=== PATIENT | female | born 1960 | race Caucasian/White ===

== ENCOUNTER 2018-01-27 08:50 | Emergency (ER) | payer OTHER, SELFPAY ==
[2018-01-27] VITALS (12 sets, daily range): BP systolic 92–131; BP diastolic 74–92; PULSE 60–159; RESP 10–24; TEMP 36.8; O2SAT 98–100; BMI 56.0
--- NOTE | 2018-01-27 09:04 | EKG12_ITS ---
Test Reason : REPEAT Blood Pressure : / mmHG Vent. Rate : 060 BPM Atrial Rate : 060 BPM P-R Int : 184 ms QRS Dur : 070 ms QT Int : 408 ms P-R-T Axes : 072 020 006 degrees QTc Int : 408 ms Atrial-paced rhythm Low voltage QRS Abnormal ECG Confirmed by APOLINAR SWEENEY, BHUPENDRA ([id number]), editor trade journal YOEL AVITIA ([id number]) on 01/30/2018 8:38:02 AM Referred By: CORY Confirmed By:BHUPENDRA JIANG MD
[2018-01-27] MEDS: 0.9% Normal Saline 1,000 ML 150 ML IV (09:09)
--- NOTE | 2018-01-27 09:10 | RAD_ITS ---
STUDY: X-RAY CHEST REASON FOR EXAM: Female, 57 years old. Chest pain TECHNIQUE: Single AP portable view of the chest. COMPARISON: 02/07/2017 FINDINGS: Cardiac monitoring leads overlie the chest. Cardiac pacemaker is unchanged. The lungs are clear and expanded. There is no demonstrated pleural abnormality. Normal size heart. Normal mediastinum and aaron. Normal visualized pulmonary arteries. Normal visualized aortic arch and descending thoracic aorta. Normal visualized thoracic spine. Normal visualized ribs, clavicles, and shoulders. There is no demonstrated abnormality of the visualized soft tissue structures of the upper abdomen. RAD/Chest 1 View (Portable) IMPRESSION: No acute process in the chest. Electronically Signed: Jose Roberto Stauffer DO at 9:35 EDT Tel , Service support ,
[2018-01-27 09:20] LABS: Absolute Lymphocyte Count 1.73 X10^3/ul (0.83-4.51); Absolute Neutrophil Count 3.3 X10^3/uL (2.0-7.7); Basophil# 0.01 X10^3/uL; Basophil% 0.2 % (0-1); Eosinophil# 0.06 X10^3/uL; Eosinophils% 1.1 % (0-5); Lymphocyte # 1.73 X10^3/ul (4.0); Lymphocyte % 30.5 % (19-41); Mean Corp Hgb Conc 31.7 g/gl (32-36); Mean Corpuscular Hgb 29.1 pg (27.0-32.0); Mean Corpuscular Volume 91.7 fL (81-99); Mean Platelet Vol. 10.9 fl (6.2-12.0); Monocyte# 0.58 X10^3/uL; Monocyte% 10.2 % (0-10); Neutrophil # 3.29 X10^3/uL (2.7-7.7); Platelet Count 201 K/mm3 (150-450); RBC Distribution Width CV 13.4 % (11.6-14.6); RBC Distribution Width SD 44.8 fl (35.1-43.9); Red Blood Count 4.47 M/mm3 (4.2-5.4); White Blood Count 5.7 K/mm3 (4.4-11.0)
[2018-01-27 09:24] LABS: POSITIVE COUNT NO; POSITIVE DIFFERENTIAL NO; POSITIVE MORPHOLOGY NO
--- NOTE | 2018-01-27 09:27 | ED.DCSUM_ITS ---
- ER Visit Summary Date of Service: 01/27/18 Chief Complaint: Palpitations History of Present Illness: The patient is a 57 F with a history of arrhythmogenic right ventricle cardiomyopathy. Patient states that she has a history of V. tach that required electrocardioversion. She is an ICD placed 1 year ago. Patient states that she was out on a walk this morning when she developed palpitations. Heart rate is 155-160. Patient states that her family development extension specialist is at [facility]. She does not want any treatment until we are able to speak with him and she is requesting transfer to their facility as soon as possible. Patient does note that her Toprol was decreased from 25 mg to 12.5 mg a couple days ago because her blood pressure have been running low when she was feeling dizzy. Physical Examination: Blood pressure is 131/92, temperature 98.3, heart rate 157 , respiratory rate 13, pulse ox 100% on 2 L nasal cannula. Patient sitting upright in bed no acute distress. She is alert and talkative. Head neck examination is unremarkable. Heart is regular rhythm but tachycardic. Lung sounds are clear. Abdomen is soft nontender. Extremity examination reveals no calf tenderness or edema. Test Results: EKG is SVT with a rate of 158. CBC and chemistry studies are grossly unremarkable. Her BUN is 22 and creatinine is 1.07. Troponin is less than 0.015. Portable chest x-ray is unremarkable. Pacer wires are intact. Emergency Department Course and Treatment: Immediately after seeing the patient I made phone calls to the patient's information technology specialist at [facility]. I was advised he is in a procedure but would call me back as soon as he was finished. I went back to recheck the patient multiple times. She declined medication or attempts at cardioversion until we were able to speak with him. Multiple calls were made back to the office. Patient spontaneously cardioverted approximate 3 hours after she first arrived to the emergency room. Patient had expressed wishes to be transferred and I did speak with the cardiology quarterback who excepted the patient to the EP service. After the patient converted repeat EKG is paced at [address] change. Patient has now been in a regular paced rhythm for the last 2 hours. She has remained comfortable. I spoke with the EP office again to ask about the recent medication changes. They advised that the doctor would be calling me back. At this time patient has now been in the emergency room for 5 hours with no return call. I will let the patient go home. If he calls while I am still on shift I will speak with him and call the patient. If the patient does not hear from us tonight she is to call his office tomorrow morning. She is comfortable with this plan. Treatment Plan: [] Disposition: Discharge Impression: SVT with spontaneous cardioversion This note was generated with [employer] dictation software. It may contain incorrect words, spelling, and punctuation that were not noted in review of the chart prior to signing ED Disposition - Plan for ED Patient: Chief Complaint: Palpitations Referrals: Alton Guerra MD [Primary Care Provider] -
[2018-01-27 09:33] LABS: Anion Gap 6 (5-15); BUN 22 mg/dL (7-18); BUN/Creat Ratio 20.6 RATIO (10-20); Calcium,Total 9.1 mg/dL (8.5-10.1); Chloride 105 mmol/L (98-107); Creatinine, Serum 1.07 mg/dL (0.55-1.02); EST Glomerular Filtration Rate 56 mL/min (>60); Est Glom Filt Rate - Afr Amer 68 mL/min (>60); Glucose 122 mg/dL (74-106); Potassium 3.8 mmol/L (3.5-5.1); Sodium Level 141 mmol/L (136-145)
--- NOTE | 2018-01-27 12:11 | EKG12_ITS ---
Test Reason : CP Blood Pressure : / mmHG Vent. Rate : 158 BPM Atrial Rate : 062 BPM P-R Int : 000 ms QRS Dur : 112 ms QT Int : 312 ms P-R-T Axes : 000 -58 107 degrees QTc Int : 505 ms Supraventricular tachycardia Left axis deviation Left ventricular hypertrophy with repolarization abnormality Inferior infarct , age undetermined Anterolateral infarct , age undetermined Abnormal ECG Confirmed by APOLINAR SWEENEY, BHUPENDRA ([id number]), purchasing expeditor YOEL AVITIA ([id number]) on 01/30/2018 8:39:46 AM Referred By: CORY Confirmed By:BHUPENDRA JIANG MD
--- NOTE | 2018-01-27 14:17 | ED.DEP ---
ED Disposition - Plan for ED Patient: Disposition: Home or Assisted Living Chief Complaint: Palpitations Instructions: ED Tachycardia Pat PSVT Referrals: Alton Guerra MD [Primary Care Provider] - Additional Instructions: Follow-up with your advertising executive as soon as possible.
== END 2018-01-27 14:37 | disposition home or self-care (01) ==
PROVIDERS: Emergency Provider Emergency Medicine; Family Provider Family Medicine; PCP Family Medicine
DX: I47.1 Supraventricular tachycardia (principal); I42.8 Other cardiomyopathies; Z79.82 Long term (current) use of aspirin; Z79.899 Other long term (current) drug therapy; Z87.891 Personal history of nicotine dependence
CPT/HCPCS: 71045; 80048; 84484; 85025; 93005; 96360; 96361; 99284; J7030; A4216

== ENCOUNTER 2019-09-07 10:58 | Emergency (ER) | payer OTHER, SELFPAY ==
[2019-09-07 10:59] VITALS: BP 164/110; PULSE 70; RESP 19; TEMP 36.3; O2SAT 98; BMI 24.3
--- NOTE | 2019-09-07 11:11 | EKG12_ITS ---
Test Reason : DIZZY Blood Pressure : / mmHG Vent. Rate : 062 BPM Atrial Rate : 062 BPM P-R Int : 190 ms QRS Dur : 082 ms QT Int : 410 ms P-R-T Axes : 079 038 048 degrees QTc Int : 416 ms Atrial-paced rhythm Low voltage QRS Abnormal ECG Confirmed by ZARINA ROSA ([id number]), international editorial producer AVIS AGUILAR ([id number]) on 09/10/2019 9:41:55 AM Referred By: AMAIRANI Confirmed By:ZARINA ROSA
--- NOTE | 2019-09-07 11:11 | RAD_ITS ---
STUDY: X-RAY CHEST REASON FOR EXAM: Female, 59 years old. PATIENT COMPLAINS OF DIZZINESS, LIGHTHEADEDNESS, SOB, AND CHEST PAIN EARLIER THIS AM, DENIES CP AT TH IS TIME. TECHNIQUE: Single AP portable view of the chest. COMPARISON: Comparison is made with prior study dated January 27, 2018. FINDINGS: Hyperinflation. The lungs are clear. There is no demonstrated pleural abnormality. Normal size heart. A left-sided dual-chamber pacemaker is seen. Normal mediastinum and aaron. Normal visualized pulmonary arteries. Normal visualized aortic arch and descending thoracic aorta. There are degenerative changes of the visualized thoracic spine. Normal visualized ribs, clavicles, and shoulders. There is no demonstrated abnormality of the visualized soft tissue structures of the upper abdomen. RAD/Chest 1 View (Portable) IMPRESSION: Hyperinflation. No acute abnormality is seen. Electronically Signed: Malachi Gonzalez, at 11:55 EST , Service support ,
[2019-09-07] MEDS: 0.9% Normal Saline 1,000 ML 150 ML IV (11:29)
[2019-09-07 11:33] LABS: Absolute Lymphocyte Count 1.24 X10^3/uL (0.83-4.51); Absolute Neutrophil Count 2.6 X10^3/uL (2.0-7.7); Basophil# 0.02 X10^3/uL; Basophil% 0.5 % (0-1); Eosinophil# 0.04 X10^3/uL; Eosinophils% 0.9 % (0-5); Hematocrit 42.2 % (37-47); Hemoglobin 13.4 g/dL (12.0-15.0); Lymphocyte # 1.24 X10^3/ul (4.0); Lymphocyte % 29.2 % (19-41); Mean Corp Hgb Conc 31.8 g/dL (32-36); Mean Corpuscular Hgb 28.7 pg (27.0-32.0); Mean Corpuscular Volume 90.4 fL (81-99); Mean Platelet Vol. 11.1 fl (6.2-12.0); Monocyte# 0.38 X10^3/uL; NRBC Flagged by Analyzer 0 % (0-5); Neutrophil # 2.55 X10^3/uL (2.7-7.7); Neutrophil % 60.2 % (47-70); Platelet Count 150 K/mm3 (150-450); RBC Distribution Width CV 13.6 % (11.6-14.6); RBC Distribution Width SD 44.9 fl (35.1-43.9); Red Blood Count 4.67 M/mm3 (4.2-5.4); White Blood Count 4.2 K/mm3 (4.4-11.0)
[2019-09-07 11:48] VITALS: PULSE 62; RESP 16; O2SAT 97
[2019-09-07 11:51] LABS: Anion Gap 5 (5-15); BUN 20 mg/dL (7-18); Calcium,Total 9.7 mg/dL (8.5-10.1); Chloride 104 mmol/L (98-107); EST Glomerular Filtration Rate 60 mL/min (>60); Est Glom Filt Rate - Afr Amer 73 mL/min (>60); Estimated Creatinine Clearance 54.51 ml/min; Glucose 96 mg/dL (74-106); Potassium 4.3 mmol/L (3.5-5.1); Sodium Level 141 mmol/L (136-145)
[2019-09-07 13:17] VITALS: BP 128/95; BP 132/95; BP 133/86; PULSE 62; PULSE 74
[2019-09-07 13:50] VITALS: BP 134/76; PULSE 69; RESP 18; O2SAT 96
--- NOTE | 2019-09-07 14:05 | ED.DCSUM_ITS ---
- ER Visit Summary Date of Service: 09/07/19 Chief Complaint: [Dizziness] History of Present Illness: The patient is a 59 F [presents to the ER with complaint of dizziness that started today. Patient states that she walked about 2-1/2 miles today and had episode of lightheadedness associated with it. Since that time she had intermittent episodes of lightheadedness whether she is sitting or standing. 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 Patient had a cardiac arrest in 2017. Patient has a pacer defibrillator in place. She has had a cold recently but she states she feels like she is getting over it. Patient denies any chest pain. She is had no syncopal episodes. The defibrillator has not discharged.] Patient had heart catheterization in 2017 that showed no abnormalities. Physical Examination: [HEENT-PERRLA, EOMI. Cranial nerves II through XII grossly intact. TMs clear. Mucous membranes moist. No adenopathy. Cardiovascular-regular rate and rhythm without murmur or ectopy Lungs-clear to auscultation, chest wall stable without crepitus or subcu emphysema Abdomen-normoactive bowel sounds, soft, nontender, no rebound or rigidity, no peritoneal signs. Extremities-intact ?4, normal range of motion, normal pulses, atraumatic] Test Results: [EKG obtained arrival showed a atrially paced rhythm with a ventricular rate of 62 bpm with no acute ST segment changes. CBC with differential was unremarkable. Chemistries unremarkable. Troponin was less than 0.015. Orthostatic vital signs were negative. Chest x-ray showed nothing acute.] Emergency Department Course and Treatment: [Patient had the pacer defibrillator interrogated and I discussed case with the tech who noted some episodes of nonsustained V. tach 5 episodes since May of last year. None within the last 24 hours. The last episode was September 04. It did not believe that any abnormal rhythms can be attributed to patient's symptomatology today.] Treatment Plan: [Follow-up with primary care physician in 3 to 5 days. Patient advised to push fluids and rest today.] Disposition: [Discharged home in stable condition] Impression: [Dizziness-etiology uncertain] This note was generated with [employer] software. It may contain incorrect words, spelling, and punctuation that were not noted in review of the chart prior to signing ED Disposition - Plan for ED Patient: Referrals: Alton Guerra MD [Primary Care Provider] -
--- NOTE | 2019-09-07 14:08 | ED.DEP ---
ED Disposition - Plan for ED Patient: Instructions: DIZZINESS, Unk Cause Referrals: Alton Guerra MD [Primary Care Provider] - 3-5 Days
[2019-09-07 14:21] VITALS: BP 126/57; PULSE 60; RESP 18; O2SAT 96
--- NOTE | 2019-09-07 14:21 | ED.RN ---
IV DC'ED, CATHETER INTACT, SMALL GAUZE DRESSING PLACED. DISCHARGE INSTRUCTIONS GIVEN TO AND REVIEWED WITH PATIENT, PATIENT DENIES QUESTIONS OR CONCERNS AND VOICES UNDERSTANDING OF DISCHARGE INSTRUCTIONS. PT AMBULATES OUT OF ROOM WITHOUT DIFFICULTY.
== END 2019-09-07 14:35 | disposition home or self-care (01) ==
PROVIDERS: Emergency Provider Emergency Medicine; PCP Family Medicine
DX: R42 Dizziness and giddiness (principal); I42.9 Cardiomyopathy, unspecified; R05 Cough; Z95.810 Presence of automatic (implantable) cardiac defibrillator
CPT/HCPCS: 71045; 80048; 84484; 85025; 93005; 96360; 96361; 99285; J7030; A4216

== ENCOUNTER → 2020-03-10 18:03 | Outpatient (CLI) | payer OTHER, SELFPAY | PROVIDERS: PCP Family Medicine; Referring Provider Family Medicine; Visit Provider Family Medicine | DX: Z20.828 Contact with and (suspected) exposure to other viral communicable diseases (principal) | CPT/HCPCS: 87635; 94799; U0003 ==

== ENCOUNTER → 2023-05-20 | Outpatient (CLI) | payer OTHER, SELFPAY ==
--- NOTE | 2023-05-20 08:28 | RAD_ITS ---
STUDY: AIR CONTRAST ESOPHAGRAM AND UPPER GI SERIES REASON FOR EXAM: Female, 63 years old. DYSPHAGIA for solid food. FLUOROSCOPY TIME (if supplied): (54 seconds) minutes/seconds. 22.86 mGy. TECHNIQUE: SINGLE CONTRAST AND AIR CONTRAST FLUOROSCOPIC IMAGES 24 images were obtained.. COMPARISON: None. FINDINGS: The cervical esophagus demonstrates normal motility without aspiration. There is no stricture or extrinsic mass effect. No intraluminal polypoid mass is identified. The thoracic esophagus distends well without stricture or mucosal fold thickening. No mucosal ulcerations are identified. There is no extrinsic mass effect. There are no diverticula. Small sliding hiatal hernia with gastroesophageal reflux. The patient ingested a 12 mm tablet of barium without any difficulty. The stomach distends well without mucosal fold thickening or mucosal ulceration. There is no intraluminal mass. The duodenal bulb is freely distensible without deformity or ulceration. The duodenal sweep is normal in position and caliber. RAD/Upper GI w/BA Swallow IMPRESSION: Small sliding hiatal hernia with gastroesophageal reflux. Electronically Signed: Malachi Gonzalez MD at 9:49 EDT ,
== END | disposition home or self-care (01) ==
LOC: RAD 08:16
PROVIDERS: PCP Family Medicine; Referring Provider Family Medicine; Visit Provider Family Medicine
DX: R13.19 Other dysphagia (principal)
CPT/HCPCS: 74246

== ENCOUNTER 2025-04-09 07:23 | Emergency (ER) | payer MEDICARE, OTHER, SELFPAY ==
[2025-04-09 07:24] VITALS: BP 141/93; PULSE 72; RESP 16; TEMP 36.5; O2SAT 97; BMI 25.3
--- NOTE | 2025-04-09 07:40 | CT_ITS ---
PROCEDURE: BRAIN/HEAD WITHOUT CONTRAST 04/09/2025 REASON FOR EXAM: HEADACHE 80 TECHNIQUE: Procedure Code: CTBR Modality: CT Procedure: BRAIN/HEAD WITHOUT CONTRAST Coronal and Sagittal reconstruction series were provided. One or more dose reduction techniques were used (e.g., Automated exposure control, adjustment of the mA and/or kV according to patient size, use of iterative reconstruction technique. RADIATION DOSE SUMMARY: CTDlvol: 80 mGy DLP: 1490 mGycm COMPARISON: None FINDINGS: Cerebrum: Age-appropriate cerebral volume. Negative for mass the frontal, parietal, temporal and occipital lobes otherwisenegative. White matter: Minimal periventricular white matter changes. Cerebellum: Negative. Negative for mass. Negative for acute infarction. CSF pathways and ventricles: Negative. Negative for ventricular dilatation or obstruction. Basal ganglia and thalami: Negative. No acute infarctions. Brainstem: Midbrain, charis and medulla otherwisenegative. Calvarium: Negative. Negative for fractures. Orbital structures: Globes negative. Extraocular muscles negative. Paranasal sinuses: No air fluid levels. Remainder of the sinuses negative. Vascular structures: Mild calcifications of the distal intracranial internal carotid arteries. Soft tissues: Negative. Other: : Negative for acute intracranial hemorrhage. Negative for acute infarction. Remainder of exam negative. CT/Brain/Head without Contrast IMPRESSION: Negative CT of the brain. Reading Location: [id number]
--- NOTE | 2025-04-09 07:40 | CT_ITS ---
PROCEDURE: CTA HEAD AND NECK W/ CONTRAST 04/09/2025 REASON FOR EXAM: HEADACHE LEFT NECK PAIN TECHNIQUE: Procedure Code: CTCTA.HDNCK Modality: CT Procedure: CTA HEAD AND NECK W/ CONTRAST Multiplanar Sagittal and Coronal images were obtained. CONTRAST: Isovue 370 VOLUME: 85 mL One or more dose reduction techniques were used (e.g., Automated exposure control, adjustment of the mA and/or kV according to patient size, use of iterative reconstruction technique). RADIATION DOSE SUMMARY: CTDlvol: 95 mGy DLP: 1490 mGycm COMPARISON: None. FINDINGS: CT BRAIN: Cerebrum: Normal cerebral volume. Negative for mass the frontal, parietal, temporal and occipital lobes negative. White matter: Negative for periventricular white matter changes. Cerebellum: Negative. Negative for mass. Negative for acute infarction. CSF pathways and ventricles: Negative. Negative for ventricular dilatation or obstruction. Basal ganglia and thalami: Negative. No acute infarctions. Brainstem: Midbrain, charis and medulla otherwisenegative. Calvarium: Negative. Negative for fractures. Orbital structures: Globes negative. Extraocular muscles negative. Paranasal sinuses: No air fluid levels. Remainder of the sinuses negative. Vascular structures: Slipped calcifications of the intracranial structures. Other: : Negative for acute intracranial hemorrhage. Negative for acute infarction. Remainder of exam negative. CTA BRAIN: Codominant distal vertebral arteries. Mild vascular calcifications distal intracranial right vertebral artery. Basilar artery negative. Posterior cerebral arteries: Right posterior communicating artery patent. Left posterior communicating artery aplastic. Posterior cerebral arteries and branches otherwise negative.. Negative for stenosis of the posterior cerebral arteries. Distal internal carotid arteries: Mild vascular calcifications of the distal internal carotid arteries. Negative for stenosis. Anterior cerebral arteries: Anterior communicating artery patent. Anterior cerebral arteries and branches negative. Middle cerebral arteries: Negative for stenosis of the middle cerebral arteries. Middle cerebral arteries and branches negative. Negative for intracranial aneurysm or significant stenosis. CTA neck: Neck: Intracranial contents negative. Imaged orbits negative. Oropharynx, hypopharynx and larynx negative. Soft tissue neck negative. No cervical adenopathy. Imaged lungs and mediastinum negative. Aortic arch and branches patent. Right side: Origin of the right common carotid artery negative. Negative for vascular calcifications of the common carotid artery and/or internal carotid artery. Negative for hemodynamically significant stenosis of the right common carotid artery. Negative for hemodynamically significant stenosis of the right internal carotid artery. Left side: Origin of the left common carotid artery negative. Negative for vascular calcifications of the common carotid and/or internal carotid artery. Negative for hemodynamically significant stenosis of the right common carotid artery. Abnormal appearance to the proximal and mid left vertebral artery concerning for dissection leading to proximally 50% narrowing of this portion of the carotid artery and extending 3.5 [address] in total length. CT/CTA Head AND Neck W/ Contrast IMPRESSION: Negative CTA of the head. 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 Right carotid system negative. Findings discussed with referring clinician at the time of the exam. Reading Location: [id number]
--- NOTE | 2025-04-09 07:40 | VDLE_ITS ---
Reason For Study Reason For Study: RLE PAin RIGHT LEFT GSV is normal. CFV is compressible, spontaneous, competent, and CFV is compressible, spontaneous, competent and demonstrates pulsatile venous flow. demonstrates pulsatile venous flow. FV is compressible, spontaneous, competent and demonstrates pulsatile venous flow. POP V is compressible, spontaneous, competent and demonstrates pulsatile venous flow. T/P Trunk is compressible. PTV is compressible. RT PerV is compressible. Procedure This is a venous duplex using B-mode, color flow and spectral Doppler. Exam performed in department. The exam was diagnostic. A preliminary report was called and/or faxed to Dr. Harris. VL/Venous Duplex US, Unilateral Interpretation Summary Deep veins of the right lower extremity are patent and compressible segmentally . There is no evidence of right lower extremity deep vein thrombosis. Valvular competence appears intact within the p roximal deep venous system on the right . The right great saphenous vein appears patent and compressible segmentally. Pul satile flow is noted in the deep venous system bilaterally, which may be indicative of elevated central venous pressure (i.e. congestive heart failure, pulmonary hypertension, etc.). Clinical correlation is advised. The left common femoral vein is patent and compressible . Ordering Physician: Juan Harris Referring Physician: Alton Guerra Performed By: Humza Vincent RVT
--- OUTSIDE RECORDS SUMMARY | 2025-04-09 07:50 | XMS RPT_ITS | CCD ---
Author Organization [facility] Care Team Providers Care Agricultural Sciences Professor Name Role Phone BEAU DUNNE ADA Unavailable Unavailable PATRICIALEXX KNAPP Unavailable Unavailable SYSTEM, PROVIDER NOT IN Unavailable Unavaila ble COPC HU, GENERIC Unavailable Unavailable CRISTEL BRAND Unavailable Unavailable [facility] Unavailable U DANNI Melendez Unavailable UnavailAlton Griffin MD Primary Care Provider No, Referral Unavailable Unavailable Ronal Gomez MD Unavailable Clarissa Tucker DO Unavailable Alton Eisenberg MD Primary Care Provider Ronal Gomez MD Unavailable Clarissa Tucker DO Unavailable Alton Eisenberg MD Primary Care Provider Alton Eisenberg MD Primary Care Provider No, Referral Unavailable Unavailable Ronal Gomez MD Unavailable Clarissa Tucker DO Unavailable No, Referral Unavailable Unavailable Ronal Gomez MD Unavailable [phone] Clarissa Tucker DO Unavailable Alton Eisenberg MD Primary Care Provider ILYA RAYGOZA Attending Unavailable CHANEL GARDNER Referring Unavailable ALTON EISENBERG Primary Care Unavailable Alton Eisenberg MD Primary Care Provider Shilo HOUSEKEEPER.Chanel PLATT Unavailable Doshi PA-C, Kelsie Unavailable Alton Eisenberg MD Primary Care Provider Shilo HOUSEKEEPER.[employer], Chanel Unavailable Tico YE, Kelsie Unavailable Shilo HOUSEKEEPER.STEWARD/[employer]EWARDESS [employer] CLASS, Chanel Unavailable Tico YE, Kelsie Unavailable Clarissa Tucker DO Unavailable [phone] SANTIAGO CAMPOS Attending Unavailable SANTIAGO CAMPOS Referring Unavailable FAINA, ALTON A Primary Care Unavailable FAINA, ALTON A Referring Unavailable FAINA, ALTON A Primary Care Unavailable CHANEL GARDNER Attending Unavailable FAINA, ALTON A Primary Care Unavailable SANTIAGO CAMPOS Referring Unavailable FAINA, ALTON A Primary Care Unavailable REYMUNDO CLAYTON Attending Unavailable REYMUNDO CLAYTON Referring Unavailable FAINA, ALTON A Primary Care Unavailable REESE PAGAN Referring Unavailable FAINA, ALTON A Primary Care Unavailable SANTIAGO CAMPOS Referring Unavailable FAINA, ALTON A Primary Care Unavailable FAINA, ALTON A Referring Unavailable FAINA, ALTON A Primary Care Unavailable CARI, DAVE Referring Unavailable FAINA, ALTON A Primary Care Unavailable SANTIAGO CAMPOS Attending Unavailable FAINA, ALTON A Primary Care Unavailable ALLEGRA ZAMORA Attending Unavaila REYMUNDO Coombs Referring Unavailable FAINA, ALTON A Primary Care Unavailable KELSIE DOSHI Attending Unavailable FAINA, ALTON A Primary Care Unavailable KELSIE DOSHI Attending Unavailable FIANA, ALTON A Primary Care Unavailable ACRI, DAVE Referring Unavailable FAINA, ALTON A Primary Care Unavailable TOMÁS SNOWDEN Referring Unavailabl e FAINA, ALTON A Primary Care Unavailable CLARISSA TUCKER Attending UnavailCLARISSA Carmichael Referring Unavailabl e FAINA, ALTON A Primary Care Unavailable KELSIE DOSHI Attending Unavailable SELF Referring Unavailable FAINA, ALTON A Primary Care Unavailable CARI, DAVE Referring Unavailable FIANA, ALTON A Primary Care Unavailable MICHELE MONTEIRO Attending Unavailable CARI, DAVE Referring Unavailable FAINA, ALTON A Primary Care Unavailable MICHELE MONTEIRO Attending Unavailable CARI, DAVE Referring Unavailable FAINA, ALTON A Primary Care Unavailable MICHELE MONTEIRO Attending Unavailable CARI, DAVE Referring Unavailable FAINA, ALTON A Primary Care Unavailable ANDRES, SANTIAGO Referring Unavailable FAINA, ALTON A Primary Care Unavailable MICHELE MONTEIRO Attending Unavailable MICHELE MONTEIRO Attending Unavailable CARI, DAVE Referring Unavailable FAINA, ALTON A Primary Care Unavailable CHANEL MARIE Referring Unavailable FAINA, ALTON A Primary Care Unavailable FAINA, ALTON A Attending Unavailable FAINA, ALTON A Primary Care Unavailable SAIDA FRANK Referring Unavailable FAINA, ALTON A Primary Care Unavailable SANTIAGO CAMPOS Attending Unavailable PRAGRETA SAIDA Referring Unavailable FAINA, ALTON A Primary Care Unavailable FAINA, ALTON A Referring Unavailable FAINA, ALTON A Primary Care Unavailable FAINA, ALTON A Attending Unavailable SELF Referring Unavailable FAINA, ALTON A Primary Care Unavailable ACRI, DAVE Referring Unavailable FAINA, ALTON A Primary Care Unavailable FAINA, ALTON A Attending Unavailable FAINA, ALTON A Referring Unavailable FAINA, ALTON A Primary Care Unavailable REESE PAGAN Referring Unavailable FAINA, ALTON A Primary Care Unavailable REESE PAGAN Attending Unavailable REESE PAGAN Referring Unavailable FAINA, ALTON A Primary Care Unavailable MICHELE MONTEIRO Attending Unavailable ANDRES, SANTIAGO Referring Unavailable FAINA, ALTON A Primary Care Unavailable FAINA, ALTON A Attending Unavailable FAINA, ALTON A Primary Care Unavailable FAINA, ALTON A Referring Unavailable FAINA, ALTON A Primary Care Unavailable FAINA, ALTON A Attending Unavailable FAINA, ALTON A Primary Care Unavailable FAINA, ALTON A Attending Unavailable FAINA, ALTON A Primary Care Unavailable CARI, DAVE Attending Unavailable CARI, DAVE Referring Unavailable FAINA, ALTON A Primary Care Unavailable CARI, DAVE Referring Unavailable FAINA, ALTON A Primary Care Unavailable TOMÁS SNOWDEN Referring Unavailabl e FAINA, ALTON A Primary Care Unavailable FAINA, ALTON A Primary Care Unavailable TOMÁS SNOWDEN Referring Unavailabl e FAINA, ALTON A Primary Care Unavailable Allergies Allergy Classification Reported Allergen(s) Allergy Type Date of Onset Reaction(s) Facility (20 sources) Bee Sting; Translations: [BEE STING] Allergy to substance 1 Swelling [facility] (20 sources) Omeprazole; Translations: [OMEPRAZOLE] Drug Allergy 4 Other: See Comments [facility] (4 sources) cyclobenzaprine; Translations: [CYCLOBENZAPRINE ] Drug Allergy Other: See Comments [facility] Medications Current Medications Medication Drug Class(es) Dates Sig (Normalized) Sig (Original) acetaminophen 500 mg oral tablet (20 sources) take 1 tablet by mouth every six hours as needed acetaminophen (TYLENOL) 500 mg tablet Take 500 mg by mouth every 6 hours as needed. Active Comment on above: Take 500 mg by mouth every 6 hours as needed. amoxicillin 875 mg oral tablet (8 sources) Penicillin-class Antibacterial Start: 01-03-2025 End: 01-10-2025 take 1 tablet by mouth twice daily amoxicillin (AMOXIL) 875 mg tablet Indications: Acute otitis media, left Take 1 tablet by mouth two times a day for 7 days. 14 tablet 01/03/2025 01/10/2025 Active Start: 01-01-2022 End: 01-08-2022 take 1 tablet by mouth twice daily amoxicillin (AMOXIL) 875 mg tablet Take 1 tablet by mouth twice daily for 7 days. 14 tablet 0 01/01/2022 01/08/2022 Active Comment on above: Take 1 tablet by hu th twice daily for 7 days. amoxicillin 875 mg / clavulanate 125 mg oral tablet (5 sources) Penicillin-class Antibacterial Start: End: take 1 tablet by mouth every twelve hours amoxicillin-clavul anate potassium (AUGMENTIN) 875-125 mg per tablet Take 1 tablet by mouth every 12 hours for 10 days. 20 tablet 01/07/2025 01/17/2025 Active Start: 01-11-2022 End: 01-21-2022 take 1 tablet by mouth twice daily amoxicillin-clavulanic acid (AUGMENTIN) 875-125 mg per tablet Indications: Sinobronchitis Take 1 tablet by mouth twice daily for 10 days. 20 tablet 0 01/11/2022 01/21/2022 Active Comment on above: Take 1 tablet by hu th twice daily for 10 days. aspirin 81 mg chewable tablet (20 sources) Platelet Aggregation Inhibitor, Nonsteroidal Anti-inflammatory Drug Start: 007 take 1 tablet by mouth once daily aspirin 81 mg ORAL Chew Take one(1) tablet daily. 0 05/07/2007 Active Comment on above: Take one(1) tablet d aily. 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 For cholesterol. 90 tablet 3 05/12/2024 05/12/2025 Active Start: 08-28-2023 take 1 tablet by hu th once daily at bedtime for hyperlipidemia atorvastatin (LIPITOR) 10 mg tablet Take 1 tablet by mouth daily at bedtime. For cholesterol. 90 tablet 1 08/28/2023 Active Start: 03-25-2022 End: 03-10-2023 take 1 tablet by mouth once daily at bedtime for hyperlipidemia atorvastatin (LIPITOR) 10 mg tablet Take 1 tablet by mouth daily at bedtime. For cholesterol. 90 tablet 1 03/25/2022 08/25/2022 Discontinued Comment on above: Take 1 tablet by hu th daily at bedtime. For cholesterol. augmented betamethasone 0.5 mg/ml topical cream (1 source) Corticosteroid Start: 03-29-2022 End: 04-09-2022 betamethasone dipropionate, augmented (DIPROLENE) 0.05 % cream Apply to rash areas twice a day for next 7-14 days. 15 g 0 03/29/2022 04/09/2022 Active Comment on above: Apply to rash areas twice a day for next 7-14 days. CALCIUM-VITAMIN D3 ORAL (20 sources) CALCIUM-VITAMIN D3 ORAL Take by mouth. 1200 calcium- 1000 units D3 (2) tablets twice daily Active CALCIUM-VITAMIN D3 ORAL Take by mouth. 1200 calcium- 1000 units D3 (2) tablets twice daily 0 Active CALCIUM-VITAMIN D3 ORAL Take by mouth. 1200 calcium- 1000 units D3 0 Active Comment on above: Take by mouth. 1200 calcium- 1000 units D3 Take by mouth. 1200 calcium- 1000 units D3 (2) tablets twice daily carboxymethylcellulose sodium 5 mg/ml / glycerin 9 mg/ml ophthalmic solution (20 sources) Non-Standardized Chemical Allergen Carboxymethylcellulo se-Glycern (OPTIVE) 0.5-0.9 % drop Use 1 Drop in both eyes as needed. Active cefadroxil 500 mg oral capsule (1 source) Cephalosporin Antibacterial Start : 04-09 End: 04-16 take 1 capsule by mouth twice daily cefADROxil (DURICEF) 500 mg capsule Take 1 capsule by mouth two times a day for 7 days. 14 capsule 04/09/2024 04/16/2024 Active empagliflozin 10 mg oral tablet (20 sources) Sodium-Glucose Cotransporter 2 Inhibitor Start : 08-06 End: 05-12 take 1 tablet by mouth once daily at breakfast empagliflozin (JARDIANCE) 10 mg tablet Indications: Arrhythmogenic right ventricular cardiomyopathy (HCC) , Chronic heart failure with preserved ejection fraction (HFpEF) (HCC) Take 1 tablet by mouth daily with breakfast. 90 tablet 3 05/12/2024 05/12/2025 Active Comment on above: Take 1 tablet by hu th daily with breakfast. [id number] 0.3 ml EPINEPHrine 1 mg/ml auto-injector (20 sources) alpha-Adrenergic Agonist, beta-Adrenergic Agonist, Catecholamine Start : 01-24 End: 11-16 EPINEPHrine (AUVI-Q) 0.3 mg/0.3 mL auto-injector Inject 0.3 mL intramuscularly as needed. 2 each 1 11/16/2024 Active Start: 04-05-2020 End: 01-03-2023 EPINEPHrine (EPIPEN) 0.3 mg/ 0.3 mL auto-injector Use as directed after bee sting if you develop shortness of breath, chest tightness of difficulty swallowing. 2 Each 1 04/05/2020 01/03/2023 Discontinued Comment on above: Use as directed afte r bee sting if you develop shortness of breath, chest tightness of difficulty swallowing. Inject 0.3 mL intram uscularly as needed. furosemide 40 mg oral tablet (20 sources) Loop Diuretic Start: 08-02-20 End: 05-12-20 take 1 tablet by mouth once daily furosemide (LASIX) 40 mg tablet Indications: Arrhythmogenic right ventricular cardiomyopathy (HCC) , Chronic heart failure with preserved ejection fraction (HFpEF) (HCC) Take 1 tablet by mouth once daily. 90 tablet 3 05/12/2024 05/12/2025 Active Start: 01-31-2022 End: 01-31-2023 take 1 tablet by mouth once daily as needed furosemide (LASIX) 20 mg tablet Indications: Arrhythmogenic right ventricular cardiomyopathy (HCC) Take 1 tablet by mouth once daily as needed. 30 tablet 11 01/31/2022 08/02/2022 Discontinued Comment on above: Take 1 tablet by hu th once daily as needed. Take 1 tablet by hu th once daily as needed (leg swelling). Take 1 tablet by hu th once daily. glucosamine/chondr barrera A sod (OSTEO BI-FLEX ORAL) (20 sources) glucosamine/radha dr bruce Burgess sod (OSTEO BI-FLEX ORAL) Take by mouth once daily. Active glucosamine/radha dr bruce Burgess sod (OSTEO BI-FLEX ORAL) Take by mouth once daily. 0 Active glucosamine/radha dr bruec Burgess sod (OSTEO BI-FLEX ORAL) Take by mouth. 0 Active Comment on above: Take by mouth. Take by mouth once d aily. hydrocortisone 10 mg/ml / neomycin 3.5 mg/ml / polymyxin b [id number] unt/ml otic suspension (1 source) Aminoglycoside Antibacterial, Polymyxin-class Antibacterial, Corticosteroid Start: 12-07-2024 End: 12-12-2024 [id number] drocortisone (CORTISPORIN) 3.5-10,000-1 mg/mL-unit/mL-% otic suspension Use 4 drops in the left ear two times a day for 5 days. 10 mL 12/07/2024 12/12/2024 Active L. acidophilus/Bifid. animalis (PROBIOTIC) 5 billion cell cpSP (20 sources) L. acidophilus/B ifid. animalis (PROBIOTIC) 5 billion cell cpSP Take 1 capsule by mouth once daily. Active L. acidophilus/B ifid. animalis (PROBIOTIC) 5 billion cell cpSP Take 1 capsule by mouth once daily. 0 Active Comment on above: Take 1 capsule by mo [facility] [place] once daily. 24 hr metoprolol succinate 25 mg extended release oral tablet (20 sources) beta-Adrenergic El Start: 01-03-2023 End: 01-03-2024 take 1 tablet by mouth once daily metoprolol succinate ER (TOPROL XL) 50 mg 24 hr tablet Indications: Arrhythmogenic right ventricular cardiomyopathy (HCC) , Hypertension, essential , Arrhythmogenic right ventricular dysplasia (HCC) , Presence of combination internal cardiac defibrillator (ICD) and pacemaker Take 1 tablet by mouth once daily. 90 tablet 3 01/03/2023 02/14/2023 Discontinued Start: 08-10-2021 End: 05-12-2025 take 1.5 tablets by mouth once daily metoprolol succinate ER (TOPROL XL) 25 mg 24 hr tablet Indications: Arrhythmogenic right ventricular cardiomyopathy (HCC) , Presence of combination internal cardiac defibrillator (ICD) and pacemaker , Hypertension, essential , Arrhythmogenic right ventricular dysplasia (HCC) Take 1.5 tablets by mouth once daily. 135 tablet 3 05/12/2024 05/12/2025 Active Comment on above: Take 1 tablet by hu th once daily. Take 1.5 tablets by mouth once daily. multivitamin ORAL tablet (20 sources) Start: 03-25-20 take 1 tablet by mouth once daily multivitamin ORAL tablet Take 1 tablet by mouth once daily. 0 03/25/2011 Active Comment on above: Take 1 tablet by hu th once daily. ofloxacin 3 mg/ml otic solution (5 sources) Quinolone Antimicrobial Start: 11-09-19 End: 01-04-20 ofloxacin (FLOXIN) 0.3 % otic solution Indications: Perforated tympanic membrane, left Use 5 Drops in the left ear twice daily. 5 mL 0 11/08/2022 01/03/2023 Discontinued Comment on above: Use 5 Drops in the l eft ear twice daily. omeprazole 40 mg delayed release oral capsule (20 sources) Proton Pump Inhibitor Start: 10-31-19 24 take 1 capsule by mouth once daily before mealtime omeprazole (PRILOSEC) 40 mg capsule Take 1 capsule by mouth once daily. 1/2 hr before meal. 90 capsule 1 10/31/2023 Active Start: 08-28-2023 take 1 capsule by mo ut once daily before mealtime omeprazole (PRILOSEC) 20 mg capsule Take 1 capsule by mouth once daily. 1/2 hr before meal. 90 capsule 1 08/28/2023 Active Start: 10-09-2022 take 1 capsule by mo uth twice daily before mealtime omeprazole (PRILOSEC) 20 mg capsule Take 1 capsule by mouth twice daily. 1/2 hr before meal. 180 capsule 1 10/09/2022 Active Comment on above: Take 1 capsule by mo ut twice daily. 1/2 hr before meal. Take 1 capsule by mo uth once daily. 1/2 hr before meal. predniSONE 20 mg oral tablet (2 sources) Start: 01-07-2025 End: 01-13-2025 take 2 tablets by mouth once daily predniSONE (DELTASONE) 20 mg tablet Take 2 tablets by mouth once daily for 6 days. 12 tablet 01/07/2025 01/13/2025 Active tiZANidine 4 mg oral tablet (3 sources) Central alpha-2 Adrenergic Agonist Start: 04-07-2025 take 1 tablet by mouth every eight hours as needed for muscle spasms tiZANidine (ZANAFLEX) 4 mg tablet Indications: Muscle spasms of neck Take 1 tablet by mouth every 8 hours as needed (muscle spasms). 30 tablet 04/07/2025 Active Completed/Discontinued Medications Medication Drug Class(es) Dates Sig (Normalized) Sig (Original) Cetirizine (2 sources) Histamine-1 Receptor Antagonist End: 11-01-2021 cetirizine HCl (ZYRTEC ORAL) Take by mouth. 0 11/01/2021 Discontinued (Discontinued by Patient) Comment on above: Take by mouth. enteric contrast (will be provided with radiology test) (2 sources) Start: 05-24-2022 End: 05-24-2022 take 1 dose by mouth once, then take 1 dose by mouth once enteric contrast (will be provided with radiology test) Take 1 Each by mouth one time only for [address] ABD/PEL WO Routine order Administer, As Directed One Time Only, via Oral, Rectal, both Oral and Rectal, Enteric Tube, Stoma or Indwelling Catheter, Enteric Contrast as designated per enteric contrast guidelines 1 Each 0 05/24/2022 05/24/2022 Start: 05-24-2022 End: 05-24-2022 take 1 dose by mouth once, then take 1 dose by mouth once enteric contrast (will be provided with radiology test) Take 1 Each by mouth one time only for [address] ABD/PEL WO Routine order Administer, As Directed One Time Only, via Oral, Rectal, both Oral and Rectal, Enteric Tube, Stoma or Indwelling Catheter, Enteric Contrast as designated per enteric contrast guidelines 1 Each 0 05/24/2022 05/24/2022 Active Comment on above: Take 1 Each by mouth one time only for [address] ABD/PEL WO Routine order Administer, As Directed One Time Only, via Oral, Rectal, both Oral and Rectal, Enteric Tube, Stoma or Indwelling Catheter, Enteric Contrast as designated per enteric contrast guidelines famotidine 20 mg oral tablet (20 sources) Histamine-2 Receptor Antagonist Start: 10-10-19 End: 10-10-19 23 take 1 tablet by mouth every twenty-four hours as needed famotidine (PEPCID) 20 mg tablet Take 1 tablet by mouth at bedtime as needed. 90 tablet 1 05/15/2022 10/09/2022 Discontinued (Changing Therapy/Dosage Form) Comment on above: Take 1 tablet by hu th at bedtime as needed. fluticasone propionate 0.05 mg/actuat metered dose nasal spray (20 sources) Corticosteroid Start: 01-12-20 End: 02-01-20 take 2 spray(s) by mouth once daily fluticasone (FLONASE) 50 mcg/actuation nasal spray Indications: Sinobronchitis Use 2 Sprays in each nostril once daily. Rinse mouth after use. 1 Each 0 01/11/2022 01/31/2022 Discontinued fluticasone prop ionate (FLONASE NASAL) Use in the nose two times a day. Active End: 11-01-2021 fluticasone propionate (FLON ASE NASAL) Use in the nose. 0 11/01/2021 Discontinued (Discontinued by Patient) Comment on above: Use in the nose. Use 2 Sprays in each nostril once daily. Rinse mouth after use. lansoprazole 30 mg delayed release oral capsule (7 sources) Proton Pump Inhibitor Start: 4 End: 4 take 1 capsule by mouth once daily before breakfast lansoprazole (PREVACID) 30 mg capsule Take 1 capsule by mouth daily before breakfast. 1/2 hr before meal. 30 capsule 1 2024 05/12/2024 Discontinued melatonin 3 mg oral tablet (2 sources) End: 2 take 1 tablet by mouth once daily at bedtime melatonin 3 mg tablet Take 3 mg by mouth daily at bedtime. 0 11/01/2021 Discontinued (Discontinued by Patient) Comment on above: Take 3 mg by mouth d aily at bedtime. pantoprazole 40 mg delayed release oral tablet (4 sources) Proton Pump Inhibitor Start: 4 End: take 1 tablet by mouth once daily before breakfast pantoprazole DR (PROTONIX) 40 mg tablet Take 1 tablet by mouth daily before breakfast. Take on empty stomach, 1/2 hr before meal. 90 tablet 1 12/01/2023 12/19/2023 Discontinued (Lack of Efficacy) perflutren lipid microspheres 1.3 mL in NaCl (PF) 0.9% 10 mL injection (DEFINITY) (20 sources) Start: 3 End: perflutren lipid microspheres 1.3 mL in NaCl (PF) 0.9% 10 mL injection (DEFINITY) Start: 08-02-2022 End: 11-01-2023 perflutren lipid microsphere s 1.3 mL in NaCl (PF) 0.9% 10 mL injection (DEFINITY) Start: 01-31-2022 End: 05-02-2023 perflutren lipid microsphere s 1.3 mL in NaCl (PF) 0.9% 10 mL injection (DEFINITY) Start: 11-01-2021 End: 01-31-2023 perflutren lipid microsphere s 1.3 mL in NaCl (PF) 0.9% 10 mL injection (DEFINITY) polyethylene glycol 3350 10697 mg powder for oral solution (6 sources) Osmotic Laxative End: 10-09-2022 polyethylene glycol 3350 (MIRALAX, GLYCOLAX) 17 gram/dose powder Take 17 g by mouth once daily. Patient using 0.5 teaspoon daily. Dissolve dose in 4 - 8 ounces of liquid and take as directed. 10/09/2022 Discontinued Comment on above: Take 17 g by mouth o nce daily. Patient using 0.5 teaspoon daily. Dissolve dose in 4 - 8 ounces of liquid and take as directed. polyethylene glycol 3350 437179 mg / potassium chloride 2970 mg / sodium bicarbonate 6740 mg / sodium chloride 5860 mg / sodium sulfate 87336 mg powder for oral solution (6 sources) Osmotic Laxative Start: 08-13-2022 End: 10-09-2022 peg 3350-Electrolytes (GOLYTELY) 236-22.74-6.74 -5.86 gram suspension Drink 1/3 jug for 3 days in a row 1 Each 08/13/2022 10/09/2022 Discontinued Comment on above: Drink 1/3 jug for 3 days in a row 125 ml sodium chloride 9 mg/ml prefilled syringe (20 sources) Start: 11-01-2021 End: 04-03-2024 sodium chloride 0.9 % (flush) 10 mL (BD POSIFLUSH) Problems Active Problems Problem Classification Problem Date Documented Da te Episodic/Chronic Abdominal pain (20 sources) Left lower quadrant pain; Translations: [Left lower quadrant pain] Onset: 3 Episodic Acquired foot deformities (2 sources) Talipes planus; Translations: [Flat foot [pes planus] (acquired), right foot] 03-28-2023 Episodic Anxiety disorders (20 sources) Mixed anxiety and depressive disorder; Translations: [Other specified anxiety disorders] Onset: 7 Resolved: 0 07-09-2017 Chronic Cardiac dysrhythmias (20 sources) Supraventricular tachycardia; Translations: [Sinus node dysfunction] Onset: 7 09-16-2019 Chronic Coma; stupor; and brain damage (2 sources) Daytime somnolence; Translations: [Somnolence] Onset: 5 04-07-2025 Episodic Conduction disorders (20 sources) 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; Translations: [Presence of automatic (implantable) cardiac defibrillator] Onset: 7 01-14-2017 Chronic Congestive heart failure; nonhypertensive (20 sources) Chronic systolic heart failure; Translations: [Chronic systolic (congestive) heart failure] Onset: 3 Resolved: 4 Chronic Disorders of lipid metabolism (20 sources) Mixed hyperlipidemia; Translations: [Mixed hyperlipidemia] Onset: 6 Resolved: 8 08-13-2018 Chronic E Codes: Fall (2 sources) Fall; Translations: [Unspecified fall, initial encounter] 11-04-2024 Episodic E Codes: Natural/environment (2 sources) Insect bite - wound; Translations: [Bitten or stung by nonvenomous insect and other nonvenomous arthropods, initial encounter] Onset: 5 02-08-2025 Episodic Esophageal disorders (20 sources) Gastroesophageal reflux disease without esophagitis; Translations: [Gastro-esophageal reflux disease without esophagitis] Onset: 3 05-22-2023 Chronic Essential hypertension (10 sources) Essential hypertension; Translations: [Essential (primary) hypertension] Chronic Genitourinary symptoms and ill-defined conditions (20 sources) Urge incontinence of urine; Translations: [Urge incontinence] Onset: 9 Resolved: 8 03-15-2019 Chronic Genitourinary symptoms and ill-defined conditions (1 source) Urgent desire to urinate; Translations: [Urgency of urination] 06-18-2023 Episodic Heart valve disorders (20 sources) Tricuspid incompetence, non-rheumatic ; Translations: [Nonrheumatic tricuspid (valve) insufficiency] Onset: 2 Chronic Nonmalignant breast conditions (1 source) Breast finding ; Translations: [Dense breast tissue] 10-09-2023 Episodic Open wounds of extremities (1 source) Open wound of finger; Translations: [Unspecified open wound of unspecified finger without damage to nail, initial encounter] 07-08-2023 Episodic Other bone disease and musculoskeletal deformities (20 sources) Osteopenia; Translations: [Other specified disorders of bone density and structure, unspecified site] 10-17-2020 Episodic Other circulatory disease (2 sources) History of sustained ventricular tachycardia; Translations: [Personal history of other diseases of the circulatory system] Episodic Other connective tissue disease (2 sources) Pain in both feet; Translations: [Pain in right foot] 03-10-2023 Episodic Other connective tissue disease (1 source) Dysfunction of posterior tibial tendon; Translations: [Posterior tibial tendinitis, unspecified leg] 03-28-2023 Episodic Other connective tissue disease (1 source) Tendinitis of bilateral posterior tibialis muscles; Translations: [Posterior tibial tendinitis, right leg] 05-19-2023 Episodic Other connective tissue disease (2 sources) Muscle spasm of cervical muscle of neck; Translations: [Other muscle spasm] 04-07-2025 Episodic Other connective tissue disease (1 source) Other muscle spasm; Translations: [Muscle spasms of neck] Onset: 5 Episodic Other ear and sense organ disorders (12 sources) Sensorineural hearing loss, bilateral; Translations: [Sensorineural hearing loss, bilateral] Onset: 4 10-23-2023 Chronic Other ear and sense organ disorders (1 source) Hearing loss; Translations: [Other specified hearing loss, unspecified ear] 12-13-2024 Chronic Other ear and sense organ disorders (1 source) Sensorineural hearing loss, bilateral; Translations: [Sensorineural hearing loss (SNHL) of both ears] Onset: 5 Chronic Other ear and sense organ disorders (1 source) Other specified hearing loss, unspecified ear; Translations: [Other specified hearing loss, unspecified ear] Onset: 5 Chronic Other ear and sense organ disorders (1 source) Ear pressure sensation; Translations: [Other specified disorders of left ear] 12-13-2024 Episodic Other eye disorders (20 sources) Ptosis of left eyelid; Translations: [Unspecified ptosis of left eyelid] Resolved: 8 09-16-2019 Episodic Other gastrointestinal disorders (2 sources) Acute constipation; Translations: [Constipation, unspecified] Episodic Other injuries and conditions due to external causes (3 sources) Injury of nose; Translations: [Unspecified injury of nose, initial encounter] 12-08-2023 Episodic Other injuries and conditions due to external causes (3 sources) Injury of right ankle; Translations: [Unspecified injury of right ankle, initial encounter] 11-04-2024 Episodic Other injuries and conditions due to external causes (2 sources) Injury of left knee; Translations: [Unspecified injury of left lower leg, initial encounter] 11-04-2024 Episodic Other lower respiratory disease (1 source) Dyspnea; Translations: [Shortness of breath] 03-20-2023 Episodic Other lower respiratory disease (1 source) Rib pain; Translations: [Pleurodynia] 11-16-2024 Episodic Other lower respiratory disease (1 source) Snoring; Translations: [Snoring] 04-07-2025 Episodic Other lower respiratory disease (1 source) Apnea; Translations: [Apnea, not elsewhere classified] 04-07-2025 Episodic Other lower respiratory disease (1 source) Snoring; Translations: [Snores] Onset: 5 Episodic Other lower respiratory disease (1 source) Apnea, not elsewhere classified; Translations: [Witnessed episode of apnea] Onset: 5 Episodic Other nervous system disorders (1 source) Impairment of balance; Translations: [Other abnormalities of gait and mobility] 05-01-2023 Episodic Other nutritional; endocrine; and metabolic disorders (1 source) Weight gain; Translations: [Abnormal weight gain] 06-18-2023 Episodic Other skin disorders (1 source) Foot callus; Translations: [Corns and callosities] 03-28-2023 Episodic Other skin disorders (1 source) Seborrheic keratosis; Translations: [Other seborrheic keratosis] 02-08-2025 Episodic Other skin disorders (1 source) Other seborrheic keratosis; Translations: [Seborrheic keratoses] Onset: 5 Episodic Other upper respiratory disease (1 source) Nasal obstruction; Translations: [Other specified disorders of nose and nasal sinuses] 12-11-2023 Episodic Other upper respiratory disease (1 source) Deviated nasal septum; Translations: [Deviated nasal septum] 12-11-2023 Episodic Other upper respiratory disease (1 source) Hypertrophy of nasal turbinates; Translations: [Hypertrophy of nasal turbinates] 12-11-2023 Episodic Other upper respiratory disease (1 source) Other specified disorders of nose and nasal sinuses; Translations: [Nasal obstruction] Onset: 4 Episodic Other upper respiratory disease (1 source) Deviated nasal septum; Translations: [Deviated nasal septum] Onset: 4 Episodic Other upper respiratory disease (1 source) Hypertrophy of nasal turbinates; Translations: [Hypertrophy of nasal turbinates] Onset: 4 Episodic Other upper respiratory infections (1 source) Chronic sinusitis; Translations: [Chronic sinusitis, unspecified] Chronic Other upper respiratory infections (1 source) Acute upper respiratory infection; Translations: [Acute upper respiratory infection, unspecified] Episodic Pat-; endo-; and myocarditis; cardiomyopathy (except that caused by tuberculosis or sexually transmitted disease) (20 sources) Arrhythmogenic right ventricular dysplasia; Translations: [Other cardiomyopathies] Onset: 7 04-30-2018 Chronic Residual codes; unclassified (1 source) Intolerant of heat; Translations: [Other general symptoms and signs] 05-01-2023 Episodic Residual codes; unclassified (3 sources) H/O: risk factor; Translations: [Contact with and (suspected) exposure to noise] 10-23-2023 Episodic Skull and face fractures (3 sources) Closed fracture of nasal bones; Translations: [Fracture of nasal bones, initial encounter for closed fracture] Onset: 12-08-2023 Episodic Spondylosis; intervertebral disc disorders; other back problems (20 sources) Backache; Translations: [Dorsalgia, unspecified] Onset: 6 Resolved: 9 01-10-2009 Episodic Sprains and strains (3 sources) Strain of muscle of upper limb; Translations: [Strain of unspecified muscle, fascia and tendon at shoulder and upper arm level, left arm, initial encounter] Episodic Unclassified (1 source) NSVT (nonsustained ventricular tachycardia) (HCC); Translations: [NSVT (nonsustained ventricular tachycardia) (HCC)] Onset: 5 Past or Other Problems Problem Classification Problem Date Documented Da te Episodic/Chronic Allergic reactions (20 sources) Allergy to bee venom; Translations: [Bee allergy status] Onset: 04-05-2020 10-17-2020 Episodic Conditions associated with dizziness or vertigo (20 sources) Dizziness; Translations: [Dizziness and giddiness] Onset: 10-23-2023 10-23-2023 Episodic Diabetes mellitus without complication (20 sources) Hyperglycemia; Translations: [Hyperglycemia, unspecified] Onset: 05-01-2023 05-01-2023 Episodic Fracture of lower limb (20 sources) Closed fracture of distal fibula ; Translations: [Other fracture of upper and lower end of right fibula, subsequent encounter for closed fracture with routine healing] Onset: 12-21-2024 11-05-2024 Episodic Immunizations and screening for infectious disease (4 sources) Vaccination needed; Translations: [Encounter for immunization] Onset: 11-26-2024 Episodic Neoplasms of unspecified nature or uncertain behavior (20 sources) Neoplasm of uncertain behavior of skin; Translations: [Neoplasm of uncertain behavior of skin] Onset: 06-04-2007 07-04-2016 Episodic Nonmalignant breast conditions (20 sources) Fibrocystic disease of breast; Translations: [Diffuse cystic mastopathy of unspecified breast] Resolved: 09-10-2019 07-30-2021 Chronic Nonspecific chest pain (2 sources) Other chest pain; Translations: [Other chest pain] Onset: 01-03-2017 Episodic Other aftercare (20 sources) Patient encounter status; Translations: [Other penitentiary (current) drug therapy] Onset: 10-09-2022 Episodic Other aftercare (1 source) Other penitentiary (current) drug therapy; Translations: [Medication management] Onset: 10-09-2022 Episodic Other and unspecified benign neoplasm (20 sources) Benign neoplasm of colon; Translations: [Benign neoplasm of colon, unspecified] Onset: 04-16-2010 07-30-2021 Episodic Other and unspecified benign neoplasm (20 sources) History of polyp of colon; Translations: [Personal history of colonic polyps] Onset: 04-21-2013 Resolved: 09-10-2019 09-16-2019 Episodic Other and unspecified benign neoplasm (20 sources) Benign neoplastic disease; Translations: [Melanocytic nevi, unspecified] Onset: 11-27-2020 10-09-2021 Episodic Other and unspecified benign neoplasm (20 sources) Compound nevus of skin ; Translations: [Melanocytic nevi, unspecified] Onset: 11-27-2020 10-09-2021 Episodic Other bone disease and musculoskeletal deformities (1 source) Other specified disorders of bone density and structure, unspecified site; Translations: [Osteopenia, unspecified location] Onset: 05-22-2022 Episodic Other connective tissue disease (20 sources) Plantar fasciitis of right foot; Translations: [Plantar fascial fibromatosis] Onset: 07-18-2016 Resolved: 09-10-2019 09-10-2019 Episodic Other connective tissue disease (20 sources) Plantar fasciitis of left foot; Translations: [Plantar fascial fibromatosis] Onset: 08-27-2017 Resolved: 09-10-2019 09-10-2019 Episodic Other ear and sense organ disorders (20 sources) Bilateral tinnitus; Translations: [Tinnitus, bilateral] Onset: 10-23-2023 10-23-2023 Episodic Other ear and sense organ disorders (2 sources) Otalgia, left ear; Translations: [Otalgia, unspecified] Onset: 12-07-2024 12-07-2024 Episodic Other ear and sense organ disorders (1 source) Tinnitus, bilateral; Translations: [Tinnitus of both ears] Onset: 12-13-2024 Episodic Other ear and sense organ disorders (1 source) Other specified disorders of left ear; Translations: [Ear pressure, left] Onset: 12-13-2024 Episodic Other gastrointestinal disorders (20 sources) Chronic constipation; Translations: [Other constipation] Onset: 06-13-2022 Episodic Other gastrointestinal disorders (18 sources) Esophageal dysphagia; Translations: [Other dysphagia] Onset: 05-01-2023 05-01-2023 Episodic Other infections; including parasitic (20 sources) Personal history of other infectious and parasitic diseases; Translations: [History of COVID-19] Onset: 03-25-2022 03-25-2022 Episodic Other injuries and conditions due to external causes (1 source) Unspecified injury of right ankle, initial encounter; Translations: [Right ankle injury, initial encounter] Onset: 11-04-2024 Episodic Other injuries and conditions due to external causes (1 source) Unspecified injury of left lower leg, initial encounter; Translations: [Left knee injury, initial encounter] Onset: 11-04-2024 Episodic Other non-traumatic joint disorders (20 sources) Chronic pain of left upper limb; Translations: [Pain in left shoulder] Onset: 05-28-2018 08-13-2018 Episodic Other non-traumatic joint disorders (20 sources) Instability of joint of left ankle; Translations: [Other instability, left ankle] Onset: 06-08-2019 06-08-2019 Episodic Other non-traumatic joint disorders (20 sources) Shoulder joint pain; Translations: [Pain in unspecified shoulder] Onset: 05-22-2006 Resolved: 01-10-2009 01-10-2009 Episodic Other non-traumatic joint disorders (20 sources) Pain in left shoulder; Translations: [Pain in joint, shoulder region] Onset: 03-11-2011 Resolved: 09-10-2019 09-10-2019 Episodic Other nutritional; endocrine; and metabolic disorders (20 sources) Disorder of lipid metabolism; Translations: [Disorder of lipoprotein metabolism, unspecified] Onset: 05-07-2007 Resolved: 05-07-2007 05-07-2007 Chronic Other screening for suspected conditions (not mental disorders or infectious disease) (20 sources) Decreased testosterone level ; Translations: [Other specified abnormal findings of blood chemistry] Onset: 04-09-2012 05-09-2015 Episodic Other skin disorders (20 sources) Actinic keratosis; Translations: [Actinic keratosis] Onset: 03-15-2019 Resolved: 09-10-2019 10-09-2021 Episodic Otitis media and related conditions (11 sources) Acute left otitis media; Translations: [Otitis media, unspecified, left ear] Onset: 12-07-2024 Episodic Residual codes; unclassified (20 sources) Family history of breast cancer; Translations: [Family history of malignant neoplasm of breast] Onset: 05-07-2007 Resolved: 09-10-2019 05-09-2015 Episodic Residual codes; unclassified (20 sources) Insomnia; Translations: [Insomnia, unspecified] Onset: 05-16-2015 Resolved: 04-30-2018 04-30-2018 Episodic Residual codes; unclassified (1 source) Contact with and (suspected) exposure to noise; Translations: [History of exposure to noise] Onset: 12-13-2024 Episodic Skin and subcutaneous tissue infections (2 sources) Cellulitis of abdominal wall ; Translations: [Cellulitis of abdominal wall] Onset: 04-09-2024 04-09-2024 Episodic Unclassified (3 sources) Injury of right ankle 11-04-2024 Unclassified (2 sources) Injury of left knee 11-04-2024 Results Test Name Value Interpretation Reference Range Facility CNOVon 04-07-2025 CNOV Normal [facility] CNTHERAPYon 04-01-2025 CNTHERAPY Normal [facility] THERAPY NTon 04-01-2025 THERAPY NT Normal [facility] CNOVon 02-08-2025 CNOV Normal [facility] CNTHERAPYon 02-07-2025 CNTHERAPY Normal [facility] THERAPY NTon 02-07-2025 THERAPY NT Normal [facility] CNTHERAPYon 01-24-2025 CNTHERAPY Normal [facility] CNTHERAPYon 01-17-2025 CNTHERAPY Normal [facility] CNTHERAPYon 01-10-2025 CNTHERAPY Normal [facility] THERAPY NTon 01-10-2025 THERAPY NT Normal [facility] CNOVon 01-07-2025 CNOV Normal [facility] CNOVon 01-03-2025 CNOV Normal [facility] CNTHERAPYon 01-03-2025 CNTHERAPY Normal [facility] THERAPY NTon 01-03-2025 THERAPY NT Normal [facility] BD DXA - AXIAL SKELETONon BD DXA - AXIAL SKELETON Normal [facility] BD DXA TRABECLR BONE SCORE ( TBS)on 12-30-2024 BD DXA TRABECLR BONE SCORE (TBS) Normal [facility] CNOVon 12-21-2024 CNOV Normal [facility] CNTHERAPYon 12-21-2024 CNTHERAPY Normal [facility] NABILA US BREAST LTD LTon 12-21 [facility] US BREAST LTD LT Normal [place] THERAPY NTon 12-21-2024 THERAPY NT Normal [facility] US Breast - left limitedon 0 12-21-2024 IMPRESSION: There are no suspicious sonographic findings in the imaged area. Return to annual screening mammogram is recommended. Annual mammogram will be due in 1 year. BI-RADS Category 1: Negative Interpreting Radiologist: Jose Armando Romero M.D. Electronically signed on: 12/21/2024 [employer] Reports Developer: ROGELIO Transcrianoop Date/Time: Dec 21 2024 8:30A Dictated by : JOSE ARMANDO ROMERO MD This examination was interpreted and the report reviewed and electronically signed by: JOSE ARMANDO ROMERO MD on Dec 21 2024 8:48AM [facility] DIVISION OF RADIOLOGY * * *Final Report* * * DATE OF EXAM: Dec 21 2024 8:45AM U 0593 - [facility] [employer] BREAST LTD LT / PROCEDURE REASON: Abnormal mammogram * * * * Physician Interpretation * * * * [address] [address] [place] [address] #[id number] - [employer] BREAST LTD LT HISTORY: 64 year-old patient seen for diagnostic evaluation of the finding(s) described on prior mammogram in the left breast. Patient states no personal history of breast cancer. The patient has a family history of breast cancer. COMPARISON STUDIES: The present examination has been compared to prior imaging studies dated 09/15/2020 (mammogram), 09/20/2021 (mammogram), 10/07/2022 (mammogram), 10/09/2023 (mammogram) and 11/26/2024 (mammogram). ULTRASOUND TECHNIQUE: Targeted ultrasound of the indicated area was performed. Willett scale images were saved. ULTRASOUND FINDINGS: There are no suspicious findings in the imaged area. DIVISION OF RADIOLOGY Provider, [facility] - 12/21/2024 * * *Final Report* * * DATE OF EXAM: Dec 21 2024 8:45AM [facility] 0593 - [facility] [employer] BREAST LTD LT / PROCEDURE REASON: Abnormal mammogram * * * * Physician Interpretation * * * * [place] [address] #[id number] - [employer] BREAST [employer] LT HISTORY: 64 year-old patient seen for diagnostic evaluation of the finding(s) described on prior mammogram in the left breast. Patient states no personal history of breast cancer. The patient has a family history of breast cancer. COMPARISON STUDIES: The present examination has been compared to prior imaging studies dated 09/15/2020 (mammogram), 09/20/2021 (mammogram), 10/07/2022 (mammogram), 10/09/2023 (mammogram) and 11/26/2024 (mammogram). ULTRASOUND TECHNIQUE: Targeted ultrasound of the indicated area was performed. Willett scale images were saved. ULTRASOUND FINDINGS: There are no suspicious findings in the imaged area. IMPRESSION IMPRESSION: There are no suspicious sonographic findings in the imaged area. Return to annual screening mammogram is recommended. Annual mammogram will be due in 1 year. BI-RADS Category 1: Negative Interpreting Radiologist: Jose Armando Romero M.D. Electronically signed on: 12/21/2024 [employer] Reports Developer: ROGELIO Transcribe Date/Time: Dec 21 2024 8:30A Dictated by : JOSE ARMANDO ROMERO MD This examination was interpreted and the report reviewed and electronically signed by: JOSE ARMANDO ROMERO MD on Dec 21 2024 8:48AM EST [facility] Radiology Study observation (narrative) [facility] US Breast - left limitedOrde red By: [facility] Provider on 12-21-2024 [facility] XR ANKLE 3V AP/LAT/OBL RTon 12-21-2024 XR ANKLE 3V AP/LAT/OBL RT Normal [facility] CNOVon 12-13-2024 CNOV Normal [facility] CNOV Normal [facility] HEARING TEST/AUDIOGRAMon [facility] CNOVon 12-07-2024 CNOV Normal [facility] CNOVon 12-03-2024 CNOV Normal [facility] XR ANKLE 3V AP/LAT/OBL RTon 12-03-2024 XR ANKLE 3V AP/LAT/OBL RT Normal [facility] CNOVon 11-26-2024 CNOV Normal [facility] HIGH RISK HUMAN PAPILLOMA PABLO (HPV), PCR FOR DETECTION AND GENOTYPINGon 11-26-2024 HPV 16 Ag Ql (Unsp spec) Not detected Normal Not detected [facility] Comment on above: Order Comment: Speci men Type: FLUID SPECIMENOrdering Facility: [facility] Address: [address] [place] [address] Performed By: #### H PVHRT ####[facility] [id number] [place] [address] [place] HPV 18 Ag Ql (Unsp spec) Not detected Normal Not detected [facility] Comment on above: Order Comment: Speci men Type: FLUID SPECIMENOrdering Facility: [facility] Address: [address] [place] [address] Performed By: #### H PVHRT ####[facility] [id number] [place] [address] [place] HPV 31+33+35+39+45+51+52+5 6+58+59+66+68 DNA CECILIA+probe Ql (Cvx) Not detected Normal Not detected [facility] Comment on above: Order Comment: Speci men Type: FLUID SPECIMENOrdering Facility: [facility] Address: [address] [place] [address] Result Comment: High Risk HPV Other Type includes HPV types 31, 33, 35, 39, 45, 51, 52, 56, 58, 59, 66 and 68. Performed By: #### H PVHRT ####[facility] LABCLIA [id number] [place] [address] [place] NABILA SCREENINGon 11-26-2024 NABILA SCREENING Normal [facility] PAP TESTon 11-26-2024 ADEQUACY Satisfactory for interpretation. Normal [facility] Comment on above: Order Comment: Speci men Type: FLUID SPECIMENOrdering Facility: [facility] Address: [address] [place] [address] Performed By: #### L [id number] ####[facility] [id number] [address] LABCLIA [id number] [place] [address] [place] CASE REPORT Normal [facility] Comment on above: Order Comment: Speci men Type: FLUID SPECIMENOrdering Facility: [facility] Address: [address] [place] [address] Result Comment: Gyne cologic Cytology Report Case: [id number] Provider: Reese Pagan MD Collected: 11/26/2024 02:11 PMOrdering Location: OB/Gynecology Received: 11/26/2024 04:24 PMFirst Screen: Sri Lowery, CT, ASCPPathologist: Danae Cui MDSpecimen: Pap Test, ThinPrep, Cervix Performed By: #### L [id number] ####[facility] [id number] [address] LABCLIA [id number] [place] [address] [place] CLINICAL HISTORY, CYTOLOGY, PRODUCTION CLERKS SUPERVISOR Post Menopausal Normal [facility] Comment on above: Order Comment: Speci men Type: FLUID SPECIMENOrdering Facility: [facility] Address: [address] [place] [address] Performed By: #### L [id number] ####[facility] [id number] [address] STATES [facility] LABCLIA [id number] [place] [address] [place] FINAL PERFORMING LAB Normal [place] Comment on above: Order Comment: Speci men Type: FLUID SPECIMENOrdering Facility: [facility] Address: [address] [place] [address] Result Comment: Tech nical component, casino gaming inspector screening performed at: [facility], [address] [place] [address] CLIA: [id number] interpretation performed at: [facility], [address] [place] [address] CLIA# [id number] Director: Blanca Nowak MD Performed By: #### L [id number] ####[facility] LABORATORYCLIA [id number] [address] LABCLIA [id number] [place] [address] [place] INTERPRETATION, CYTOLOGY, PRODUCTION CLERKS SUPERVISOR Abnormal [facility] Comment on above: Order Comment: Speci men Type: FLUID SPECIMENOrdering Facility: [facility] Address: [address] [place] [address] Result Comment: Atyp ical squamous cells of undetermined significance (ASC-US). at 1633 EDT Performed By: #### L [id number] ####[facility] LABORATORYCLIA [id number] [address] STATES [facility] LABCLIA [id number] [place] [address] [place] PAP DISCLAIMER COMMENT The Pap Smear is a screening test for cervical cancer. False negative results occur with all screening tests, emphasizing the need for rescreening at recommended intervals, and clinical correlation. Normal [facility] Comment on above: Order Comment: Speci men Type: FLUID SPECIMENOrdering Facility: [facility] Address: [address] [place] [address] Performed By: #### L [id number] ####[facility]ORYCLIA [id number] [place] [id number] [place] OF [facility] LABCLIA [id number] [place] [address] [place] PAP GENERAL CATEGORIZATION Epithelial Cell Abnormality Normal [facility] Comment on above: Order Comment: Speci men Type: FLUID SPECIMENOrdering Facility: [facility] Address: [address] [place] [address] Performed By: #### L [id number] ####[facility] LABORATORYCLIA [id number] [place] [address] [place] [facility] LABCLIA [id number] [place] [address] [place] PAP GUEST SERVICES DIRECTOR COMMENT Normal [facility] Comment on above: Order Comment: Speci men Type: FLUID SPECIMENOrdering Facility: [facility] Address: [address] [place] [address] Performed By: #### L [id number] ####[facility]ORY[facility]IA [id number] [place] [address] [place] [facility] LABCLIA [id number] [place] [address] [place] CNOVon 11-16-2024 CNOV Normal [facility] Comprehensive metabolic 2000 panelon 11-10-2024 Albumin [Mass/Vol] 4.3 g/dL Normal 3.9-4.9 [facility] Comment on above: Order Comment: Speci men Type: BLOOD SPECIMENOrdering Facility: [facility] Address: [address] [place] [address] Performed By: #### L IPNF, 33840-6 ####[facility] LABCLIA [id number] [address] [id number] [address] [place] ALP [Catalytic activity/Vol] 72 U/L Normal 34-123 [facility] Comment on above: Order Comment: Speci men Type: BLOOD SPECIMENOrdering Facility: [facility] Address: [address] [place] [address] Performed By: #### L IPNF, ####[facility] LABCLIA [id number] [place] [id number] [place] ALT [Catalytic activity/Vol] 21 U/L Normal 7-38 [facility] Comment on above: Order Comment: Speci men Type: BLOOD SPECIMENOrdering Facility: [facility] Address: [address] [place] [address] Performed By: #### L IPNF, ####[facility] LABCLIA [id number] [place] [address] [place] Anion gap [Moles/Vol] 9 mmol/L Normal 8-15 [facility] Comment on above: Order Comment: Speci men Type: BLOOD SPECIMENOrdering Facility: [facility] Address: [address] [place] [address] Performed By: #### L IPNF, ####[facility] LABCLIA [id number] [place] [address] [place] AST [Catalytic activity/Vol] 26 U/L Normal 13-35 [facility] Comment on above: Order Comment: Speci men Type: BLOOD SPECIMENOrdering Facility: [facility] Address: [address] [place] [address] Performed By: #### L IPNF, ####[facility] LABCLIA [id number] [place] [id number] [place] Bilirubin [Mass/Vol] 0.4 mg/dL Normal 0.2-1.3 [place] Comment on above: Order Comment: Speci men Type: BLOOD SPECIMENOrdering Facility: [facility] Address: [address] [place], [place] [id number] Performed By: #### L IPNF, 62150-7 ####[facility] LABCLIA [id number] [place] [id number] [place] Calcium [Mass/Vol] 10.0 mg/dL Normal 8.5-10.2 [facility] Comment on above: Order Comment: Speci men Type: BLOOD SPECIMENOrdering Facility: [facility] Address: [address] [place] [address] Performed By: #### L IPNF, 25917-7 ####[facility] LABCLIA [id number] [place] [id number] [place] Chloride [Moles/Vol] 102 mmol/L Normal 98-107 [place] Comment on above: Order Comment: Speci men Type: BLOOD SPECIMENOrdering Facility: [facility] Address: [address] [place] [address] Performed By: #### L IPNF, 80643-4 ####[facility] LABCLIA [id number] [place] [address] [place] CO2 [Moles/Vol] 31 mmol/L High 22-30 [facility] Comment on above: Order Comment: Speci men Type: BLOOD SPECIMENOrdering Facility: [facility] Address: [address] [place] [address] Performed By: #### L IPNF, ####[facility] LABCLIA [id number] [address] [address] [place] Creatinine [Mass/Vol] 0.98 mg/dL High 0.58-0.96 [facility] Comment on above: Order Comment: Speci men Type: BLOOD SPECIMENOrdering Facility: [facility] Address: [address] [place], [place] [address] Performed By: #### L IPNF, 49669-2 ####[facility] LABCLIA [id number] [place] [address] [place] Creatinine and Glomerular filtration rate.predicted panel (S/P/Bld) 65 mL/min/1.73m??? Normal >=60 [facility] Comment on above: Order Comment: Eulalia frazier Type: BLOOD SPECIMENOrdering Facility: [facility] Address: [address] [place] [address] Result Comment: Sharon mated Glomerular Filtration Rate (eGFR) is calculated using the 2020 CKD-EPI creatinine equation. This equation utilizes serum creatinine, sex, and age as parameters. The creatinine assay has traceable calibration to isotope dilution-mass spectrometry. Refer to KDIGO guidelines for clinical interpretation. In patients with unstable renal function, e.g. those with acute kidney injury, the eGFR may not accurately reflect actual GFR. Performed By: #### L MARY, 15887-9 ####[facility] LABIA [id number] [place] [address] [place] Glucose [Mass/Vol] 66 mg/dL Low 74-99 [facility] Comment on above: Order Comment: Eulalia frazier Type: BLOOD SPECIMENOrdering Facility: [facility] Address: [address] [place] [address] Result Comment: The [place] Diabetes Association (ADA) provides guidance for cutoff values for fasting glucose and random glucose. The ADA defines fasting as no caloric intake for at least 8 hours. Fasting plasma glucose results between 100 to 125 mg/dL indicate increased risk for diabetes (prediabetes).Fasting plasma glucose results greater than or equal to 126 mg/dL meet the criteria for diagnosis of diabetes. In the absence of unequivocal hyperglycemia, results should be confirmed by repeat testing. In a patient with classic symptoms of hyperglycemia or hyperglycemic crisis, random plasma glucose results greater than or equal to 200 mg/dL meet the criteria for diagnosis of diabetes.Reference: Standards of Medical Care in Diabetes 2016, [place] Diabetes Association. Diabetes Care. 2016.39(Suppl 1). Performed By: #### L MARY, 43275-6 ####[facility] LABIA [id number] [place] [id number] [place] Potassium [Moles/Vol] 4.3 mmol/L Normal 3.7-5.1 [facility] Comment on above: Order Comment: Speci men Type: BLOOD SPECIMENOrdering Facility: [facility] Address: [address] [place] [address] Performed By: #### L IPNF, ####[facility] LABCLIA [id number] [place] [id number] [place] Protein [Mass/Vol] 6.9 g/dL Normal 6.3-8.0 [facility] Comment on above: Order Comment: Speci men Type: BLOOD SPECIMENOrdering Facility: [facility] Address: [address] [place] [address] Performed By: #### L IPNF, ####[facility] LABCLIA [id number] [place] [address] [place] Sodium [Moles/Vol] 142 mmol/L Normal 136-144 [facility] Comment on above: Order Comment: Speci men Type: BLOOD SPECIMENOrdering Facility: [facility] Address: [address] [place] [address] Performed By: #### L IPNF, ####[facility] LABCLIA [id number] [place] [id number] [place] Urea nitrogen [Mass/Vol] 24 mg/dL High 7-21 [facility] Comment on above: Order Comment: Speci men Type: BLOOD SPECIMENOrdering Facility: [facility] Address: [address] [place] [address] Performed By: #### L IPNF, ####[facility] LABCLIA [id number] [place] [id number] [place] HbA1c (Bld)on 11-10-2024 Average glucose Estimated from glycated hemoglobin (Bld) [Mass/Vol] 105 mg/dL Normal [facility] Comment on above: Order Comment: Speci men Type: BLOOD SPECIMENOrdering Facility: [facility] Address: [address] [place] [address] Result Comment: eAG: (Estimated average glucose) is a calculated value from HgbA1c and is employee representative of the average blood glucose level in the last 2-3 month period. Performed By: #### 5 5454-3 ####[facility] LABCLIA [id number] [address] [address] [place] HbA1c (Bld) [Mass fraction] 5.3 % Normal 4.3-5.6 [facility] Comment on above: Order Comment: Speci [facility] Type: BLOOD SPECIMENOrdering Facility: [facility] Address: [address] [place] [address] Result Comment: [place] Diabetes Association guidelines indicate that patients with HgbA1c in the range 5.7-6.4% are at increased risk for development of diabetes, and intervention by lifestyle modification may be beneficial. HgbA1c greater or equal to 6.5% is considered diagnostic of diabetes. Performed By: #### 5 5454-3 ####[facility] LABIA [id number] [address] [address] [place] LIPID PANEL, NONFASTINGon Cholesterol [Mass/Vol] 170 mg/dL Normal <200 [facility] Comment on above: Order Comment: Speci men Type: BLOOD SPECIMENOrdering Facility: [facility] Address: [address] [place] [address] Result Comment: <200 mg/dL, Desirable 200-239 mg/dL, Borderline high>239 mg/dL, High Performed By: #### L IPNF, 85573-1 ####[facility] LABIA [id number] [place] [id number] [place] HDL CHOLESTEROL, NF 46 mg/dL Normal >39 [facility] Comment on above: Order Comment: Speci men Type: BLOOD SPECIMENOrdering Facility: [facility] Address: [address] [place] [address] Result Comment: 40-5 9 mg/dL, Acceptable>59 mg/dL, High: Negative risk factor for coronary heart disease<40 mg/dL, Low: Positive risk factor for coronary heart disease Performed By: #### L MARY, 26071-5 ####[facility] LABCLIA [id number] [address] STATES OF [facility] LDL CHOLESTEROL, NF 88 mg/dL Normal <100 [facility] Comment on above: Order Comment: Eulalia men Type: BLOOD SPECIMENOrdering Facility: [facility] Address: [address] [place] [address] Result Comment: <100 mg/dL, Optimal 100-129 mg/dL, Near optimal/above optimal 130-159 mg/dL, Borderline high 160-189 mg/dL, High>189 mg/dL, Very highSecondary prevention optimal LDL Cholesterol levels are recommended to be < 70 mg/dL Performed By: #### L MARY, 33216-0 ####[facility] LABCLIA [id number] [address] OF [facility] LDL/HDL RATIO, NF 1.91 mg/dL Normal <2.54 [facility] Comment on above: Order Comment: Eulalia frazier Type: BLOOD SPECIMENOrdering Facility: [facility] Address: [address] [place] [address] Result Comment: Refe beckyce:1. National Cholesterol Education Program ATP III Guideline At-A-Glance Quick Desk Reference: National Heart, Lung, and Blood [facility]. National Institutes of Health. 2001: NIH Publication No. 01-3305.2. An International Atherosclerosis Society position paper: global recommendations for the management of dyslipidemia: executive summary, Atherosclerosis. 2014: 232(2):410-413. Performed By: #### L MARY, 96963-9 ####[facility] LABCLIA [id number] [address] [place] NON HDL CHOL, NF 124 mg/dL Normal <130 [facility] Comment on above: Order Comment: Eulalia men Type: BLOOD SPECIMENOrdering Facility: [facility] Address: [address] [place] [address] Result Comment: <130 mg/dL, Optimal 130-159 mg/dL, Near optimal/above optimal 160-189 mg/dL, Borderline high 190-219 mg/dL, High>219 mg/dL, Very highSecondary prevention optimal non HDL Cholesterol levels are recommended to be <100 mg/dL Performed By: #### L IPNF, ####[facility] LABCLIA [id number] [place] [address] [place] T CHOL/HDL RATIO NF 3.70 mg/dL Normal <5.10 [facility] Comment on above: Order Comment: Speci men Type: BLOOD SPECIMENOrdering Facility: [facility] Address: [address] [place] [address] Performed By: #### L IPNF, ####[facility] LABCLIA [id number] [place] [address] [place] TRIGLYCERIDES, NF 181 mg/dL High <150 [facility] Comment on above: Order Comment: Speci men Type: BLOOD SPECIMENOrdering Facility: [facility] Address: [address] [place] [address] Result Comment: <150 mg/dL, Normal 150-199 mg/dL, Borderline high 200-499 mg/dL, High>499 mg/dL, Very high Performed By: #### L IPNF, ####[facility] LABCLIA [id number] [place] [address] [place] VLDL CHOLESTEROL, NF 36 mg/dL High <30 [place] Comment on above: Order Comment: Speci men Type: BLOOD SPECIMENOrdering Facility: [facility] Address: [address] [place] [address] Performed By: #### L IPNF, ####[facility] LABCLIA [id number] [place] [id number] [place] CNOVon 11-05-2024 CNOV Normal [facility] CNOVon 11-04-2024 CNOV Normal [facility] No Panel Informationon 11-04 Radiology Study observation (narrative) [facility] XR ANKLE 3V AP/LAT/OBL RTon 11-04-2024 XR ANKLE 3V AP/LAT/OBL RT Normal [facility] XR Ankle - right AP and Late ral and obliqueon 11-04-2024 IMPRESSION: Nondisplaced RIGHT lateral malleolus fracture. Oracle Reports Developer: PSCB Transcribe Date/Time: Nov 04 2024 10:34A Dictated by : LULÚ PAZ DO This examination was interpreted and the report reviewed and electronically signed by: LULÚ PAZ DO on Nov 04 2024 10:38AM [facility] DIVISION OF RADIOLOGY * * *Final Report* * * DATE OF EXAM: Nov 04 2024 10:26AM WOX 5297 - XR ANKLE 3V AP/LAT/OBL RT / PROCEDURE REASON: Right ankle injury, initial encounter * * * * Physician Interpretation * * * * EXAMINATION: XR ANKLE 3V AP/LAT/OBL RT PATIENT/TECHNOLOGIST PROVIDED HISTORY: pt fell this am, pain and abrasions to anterior left knee and pain and swelling lateral right ankle CLINICAL INFORMATION: 64 years old Female with Right ankle injury, initial encounter. Fell while walking. Lateral malleolus swelling. TECHNIQUE: XR ANKLE 3V AP/LAT/OBL RT Laterality: RIGHT Number of different views (projections): 3 COMPARISON: Radiographs 06/07/2019 RESULT: Nondisplaced transverse fracture of the RIGHT lateral malleolus with fracture line below the tibial plafond. Moderate overlying lateral ankle soft tissue swelling. Ankle mortise is maintained. Corticated ossicle anterior aspect of the navicular likely related to degenerative change. Posterior and plantar calcaneal spurs. DIVISION OF RADIOLOGY Provider, Charity Julieta Stovall - 11/04/2024 * * *Final Report* * * DATE OF EXAM: Nov 04 2024 10:26AM WOX 5297 - XR ANKLE 3V AP/LAT/OBL RT / PROCEDURE REASON: Right ankle injury, initial encounter * * * * Physician Interpretation * * * * EXAMINATION: XR ANKLE 3V AP/LAT/OBL RT PATIENT/TECHNOLOGIST PROVIDED HISTORY: pt fell this am, pain and abrasions to anterior left knee and pain and swelling lateral right ankle CLINICAL INFORMATION: 64 years old Female with Right ankle injury, initial encounter. Fell while walking. Lateral malleolus swelling. TECHNIQUE: XR ANKLE 3V AP/LAT/OBL RT Laterality: RIGHT Number of different views (projections): 3 COMPARISON: Radiographs 06/07/2019 RESULT: Nondisplaced transverse fracture of the RIGHT lateral malleolus with fracture line below the tibial plafond. Moderate overlying lateral ankle soft tissue swelling. Ankle mortise is maintained. Corticated ossicle anterior aspect of the navicular likely related to degenerative change. Posterior and plantar calcaneal spurs. IMPRESSION IMPRESSION: Nondisplaced RIGHT lateral malleolus fracture. [employer] Reports Developer: KATHY Transcribe Date/Time: Nov 04 2024 10:34A Dictated by : LULÚ PAZ DO This examination was interpreted and the report reviewed and electronically signed by: LULÚ PAZ DO on Nov 04 2024 10:38AM [facility] XR Ankle - right AP and Late ral and obliqueOrdered By: Ccf Provider on 11-04-2024 [facility] XR KNEE 4V AP/PA BOTH+LAT/ME R LTon 11-04-2024 XR KNEE 4V AP/PA BOTH+LAT/MILTON LT Normal [facility] XR Knee - left 4 Viewson IMPRESSION: No acute osseous abnormality. Oracle Reports Developer: KATHY Transcribe Date/Time: Nov 04 2024 10:32A Dictated by : LULÚ PAZ DO This examination was interpreted and the report reviewed and electronically signed by: LULÚ PAZ DO on Nov 04 2024 10:33AM [facility] DIVISION OF RADIOLOGY * * *Final Report* * * DATE OF EXAM: Nov 04 2024 10:26AM WOX 5202 - XR KNEE 4V AP/PA BOTH+LAT/MILTON LT / PROCEDURE REASON: Left knee injury, initial encounter * * * * Physician Interpretation * * * * EXAMINATION: XR KNEE 4V AP/PA BOTH+LAT/MILTON LT PATIENT/TECHNOLOGIST PROVIDED HISTORY: pt fell this am, pain and abrasions to anterior left knee and pain and swelling lateral right ankle CLINICAL INFORMATION: 64 years old Female with Left knee injury, initial encounter. Fell while walking. Abrasion left knee. TECHNIQUE: XR KNEE 4V AP/PA BOTH+LAT/MILTON LT Laterality: LEFT Number of different views (projections): 4 COMPARISON: None RESULT: No acute fracture. No joint effusion. Joint spaces are maintained. DIVISION [facility]IOLOGY [facility] * * *Final Report* * * DATE OF EXAM: Nov 04 2024 10:26AM WOX 5202 - XR KNEE 4V AP/PA BOTH+LAT/MILTON LT / PROCEDURE REASON: Left knee injury, initial encounter * * * * Physician Interpretation * * * * EXAMINATION: XR KNEE 4V AP/PA BOTH+LAT/MILTON LT PATIENT/TECHNOLOGIST PROVIDED HISTORY: pt fell this am, pain and abrasions to anterior left knee and pain and swelling lateral right ankle CLINICAL INFORMATION: 64 years old Female with Left knee injury, initial encounter. Fell while walking. Abrasion left knee. TECHNIQUE: XR KNEE 4V AP/PA BOTH+LAT/MILTON LT Laterality: LEFT Number of different views (projections): 4 COMPARISON: None RESULT: No acute fracture. No joint effusion. Joint spaces are maintained. IMPRESSION IMPRESSION: No acute osseous abnormality. Oracle Reports Developer: PSCB Transcribe Date/Time: Nov 04 2024 10:32A Dictated by : LULÚ PAZ DO This examination was interpreted and the report reviewed and electronically signed by: LULÚ PAZ DO on Nov 04 2024 10:33AM EST [facility] CNCNPATEDon 08-11-2024 CNCNPATED Normal [facility] CNNURSEon 08-11-2024 CNNURSE Normal [facility] CNOVon 08-11-2024 CNOV Normal [facility] ECG COMPLETEon 08-11-2024 ECG COMPLETE Normal [facility] MISC SEND OUT TST 12024 MISC SCAN TEST RESULTS 1 Normal [facility] Comment on above: Order Comment: Speci men Type: BLOOD SPECIMENOrdering Facility: [facility] Address: [address] [place] [address] Result Comment: Rese arch REFERRAL LAB 1 (DROP-DOWN) Normal [facility] Comment on above: Order Comment: Speci men Type: BLOOD SPECIMENOrdering Facility: [facility] Address: [address] [place] [address] Result Comment: Rese arch TEST 1 Normal [facility] Comment on above: Order Comment: Speci men Type: BLOOD SPECIMENOrdering Facility: [facility] Address: [address] [place] [address] Result Comment: Rese arch CNOVon 06-22-2024 CNOV Normal [facility] CNOVon 06-08-2024 CNOV Normal [facility] CNPNon 05-28-2024 CNPN Normal [facility] CNOVon 05-18-2024 CNOV Normal [facility] CNOVon 05-12-2024 CNOV Normal [facility] ECG COMPLETEon 05-12-2024 ECG COMPLETE Normal [facility] CBC W Auto Differential pane l (Bld)on 04-20-2024 Basophils (Bld) [#/Vol] 0.03 10*3/uL Normal <0.11 [facility] Comment on above: Order Comment: Speci men Type: BLOOD SPECIMENOrdering Facility: [facility] Address: [address] [place] [address] Performed By: #### 5 7021-8 ####[facility] LABCLIA [id number] [place] [address] [place] Basophils/100 WBC (Bld) 0.7 % Normal [facility] Comment on above: Order Comment: Speci men Type: BLOOD SPECIMENOrdering Facility: [facility] Address: [address] [place] [address] Performed By: #### 5 7021-8 ####[facility] LABCLIA [id number] [place] [address] [place] Differential cell count method Nom (Bld) Auto Normal [facility] Comment on above: Order Comment: Speci men Type: BLOOD SPECIMENOrdering Facility: [facility] Address: [address] [place] [address] Performed By: #### 5 7021-8 ####[facility] LABCLIA [id number] [place] [address] [place] Eosinophils (Bld) [#/Vol] 0.07 10*3/uL Normal <0.46 [facility] Comment on above: Order Comment: Speci men Type: BLOOD SPECIMENOrdering Facility: [facility] Address: [address] [place] [address] Performed By: #### 5 7021-8 ####[facility] LABCLIA [id number] [place] [address] [place] Eosinophils/100 WBC (Bld) 1.5 % Normal [facility] Comment on above: Order Comment: Speci men Type: BLOOD SPECIMENOrdering Facility: [facility] Address: [address] [place] [address] Performed By: #### 5 7021-8 ####[facility] LABIA [id number] [place] [address] [place] Erythrocyte distribution width (RBC) [Ratio] 14.2 % Normal 11.5-15.0 [facility] Comment on above: Order Comment: Speci men Type: BLOOD SPECIMENOrdering Facility: [facility] Address: [address] [place] [address] Performed By: #### 5 7021-8 ####[facility] LABCLIA [id number] [place] [address] [place] Hematocrit (Bld) [Volume fraction] 47.8 % High 36.0-46.0 [facility] Comment on above: Order Comment: Speci men Type: BLOOD SPECIMENOrdering Facility: [facility] Address: [address] [place] [address] Performed By: #### 5 7021-8 ####[facility] LABCLIA [id number] [place] [address] [place] Hemoglobin (Bld) [Mass/Vol] 14.7 g/dL Normal 11.5-15.5 [facility] Comment on above: Order Comment: Speci men Type: BLOOD SPECIMENOrdering Facility: [facility] Address: [address] [place] [address] Performed By: #### 5 7021-8 ####[facility] LABCLIA [id number] [place] [address] [place] Immature granulocytes (Bld) [#/Vol] 10*3/uL Normal <0.10 [facility] Comment on above: Order Comment: Speci men Type: BLOOD SPECIMENOrdering Facility: [facility] Address: [address] [place] [address] Performed By: #### 5 7021-8 ####[facility] LABCLIA [id number] [place] [address] [place] Immature granulocytes/100 WBC (Bld) 0.2 % Normal [facility] Comment on above: Order Comment: Speci men Type: BLOOD SPECIMENOrdering Facility: [facility] Address: [address] [place] [address] Performed By: #### 5 7021-8 ####[facility] LABCLIA [id number] [place] [address] [place] Lymphocytes (Bld) [#/Vol] 1.75 10*3/uL Normal 1.00-4.00 [facility] Comment on above: Order Comment: Speci men Type: BLOOD SPECIMENOrdering Facility: [facility] Address: [address] [place] [address] Performed By: #### 5 7021-8 ####[facility] LABCLIA [id number] [place] [address] [place] Lymphocytes/100 WBC (Bld) 38.0 % Normal [facility] [facility] Comment on above: Order Comment: Speci men Type: BLOOD SPECIMENOrdering Facility: [facility] Address: [address] [place] [address] Performed By: #### 5 7021-8 ####[facility] LABCLIA [id number] [place] [address] [place] MCH (RBC) [Entitic mass] 28.7 pg Normal 26.0-34.0 [facility] Comment on above: Order Comment: Speci men Type: BLOOD SPECIMENOrdering Facility: [facility] Address: [address] [place] [address] Performed By: #### 5 7021-8 ####[facility] LABIA [id number] [place] [address] [place] MCHC (RBC) [Mass/Vol] 30.8 g/dL Normal 30.5-36.0 [facility] Comment on above: Order Comment: Speci men Type: BLOOD SPECIMENOrdering Facility: [facility] Address: [address] [place] [address] Performed By: #### 5 7021-8 ####[facility] LABIA [id number] [place] [address] [place] MCV (RBC) [Entitic vol] 93.4 fL Normal 80.0-100.0 [facility] Comment on above: Order Comment: Speci men Type: BLOOD SPECIMENOrdering Facility: [facility] Address: [address] [place] [address] Performed By: #### 5 7021-8 ####[facility] LABIA [id number] [place] [address] [place] Monocytes (Bld) [#/Vol] 0.43 10*3/uL Normal <0.87 [facility] Comment on above: Order Comment: Speci men Type: BLOOD SPECIMENOrdering Facility: [facility] Address: [address] [place] [address] Performed By: #### 5 7021-8 ####[facility] LABIA [id number] [place] [address] [place] Monocytes/100 WBC (Bld) 9.3 % Normal [facility] Comment on above: Order Comment: Speci men Type: BLOOD SPECIMENOrdering Facility: [facility] Address: [address] [place] [address] Performed By: #### 5 7021-8 ####[facility] LABCLIA [id number] [place] [address] [place] Neutrophils (Bld) [#/Vol] 2.32 10*3/uL Normal 1.45-7.50 [facility] Comment on above: Order Comment: Speci men Type: BLOOD SPECIMENOrdering Facility: [facility] Address: [address] [place] [address] Performed By: #### 5 7021-8 ####[facility] LABCLIA [id number] [place] [address] [place] Neutrophils/100 WBC (Bld) 50.3 % Normal [facility] Comment on above: Order Comment: Speci men Type: BLOOD SPECIMENOrdering Facility: [facility] Address: [address] [place] [address] Performed By: #### 5 7021-8 ####[facility] LABCLIA [id number] [place] [address] [place] Nucleated RBC (Bld) [#/Vol] 10*3/uL Normal <0.01 [facility] Comment on above: Order Comment: Speci men Type: BLOOD SPECIMENOrdering Facility: [facility] Address: [address] [place] [address] Performed By: #### 5 7021-8 ####[facility] LABCLIA [id number] [place] [address] [place] Nucleated RBC/100 WBC (Bld) [Ratio] 0.0 /100 WBC Normal [facility] Comment on above: Order Comment: Speci men Type: BLOOD SPECIMENOrdering Facility: [facility] Address: [address] [place] [address] Performed By: #### 5 7021-8 ####[facility] LABCLIA [id number] [place] [address] [place] Platelet mean volume (Bld) [Entitic vol] 11.9 fL Normal 9.0-12.7 [facility] Comment on above: Order Comment: Speci men Type: BLOOD SPECIMENOrdering Facility: [facility] Address: [address] [place] [address] Performed By: #### 5 7021-8 ####[facility] LABIA [id number] [place] [address] [place] Platelets (Bld) [#/Vol] 165 10*3/uL Normal 150-400 [facility] Comment on above: Order Comment: Speci men Type: BLOOD SPECIMENOrdering Facility: [facility] Address: [address] [place] [address] Performed By: #### 5 7021-8 ####[facility] LABIA [id number] [place] [address] [place] RBC (Bld) [#/Vol] 5.12 10*6/uL Normal 3.90-5.20 [facility] Comment on above: Order Comment: Speci men Type: BLOOD SPECIMENOrdering Facility: [facility] Address: [address] [place] [address] Performed By: #### 5 7021-8 ####[facility] LABIA [id number] [place] [address] [place] WBC (Bld) [#/Vol] 4.61 10*3/uL Normal 3.70-11.00 [facility] Comment on above: Order Comment: Speci men Type: BLOOD SPECIMENOrdering Facility: [facility] Address: [address] [place] [address] Performed By: #### 5 7021-8 ####[facility] LABIA [id number] [address] [address] [place] Comprehensive metabolic 2000 panelon 04-20-2024 Albumin [Mass/Vol] 4.1 g/dL Normal 3.9-4.9 [facility] Comment on above: Order Comment: Speci men Type: BLOOD SPECIMENOrdering Facility: [facility] Address: [address] [place] [address] Performed By: #### 2 4323-8, LIPNF, 29655-3, 86691-5 ####[facility] LABCLIA [id number] [place] [address] [place] ALP [Catalytic activity/Vol] 86 U/L Normal 34-123 [facility] Comment on above: Order Comment: Speci men Type: BLOOD SPECIMENOrdering Facility: [facility] Address: [address] [place] [address] Performed By: #### 2 4323-8, LIPNF, 90758-5, 22365-5 ####[facility] LABCLIA [id number] [place] [address] [place] ALT [Catalytic activity/Vol] 30 U/L Normal 7-38 [facility] Comment on above: Order Comment: Speci men Type: BLOOD SPECIMENOrdering Facility: [facility] Address: [address] [place] [address] Performed By: #### 2 4323-8, LIPNF, 93076-3, 39490-2 ####[facility] LABCLIA [id number] [place] [address] [place] Anion gap [Moles/Vol] 10 mmol/L Normal 8-15 [facility] Comment on above: Order Comment: Speci men Type: BLOOD SPECIMENOrdering Facility: [facility] Address: [address] [place] [address] Performed By: #### 2 4323-8, LIPNF, 59374-7, 94112-9 ####[facility] LABCLIA [id number] [place] [id number] [place] AST [Catalytic activity/Vol] 25 U/L Normal 13-35 [facility] Comment on above: Order Comment: Speci men Type: BLOOD SPECIMENOrdering Facility: [facility] Address: [address] [place] [address] Performed By: #### 2 4323-8, LIPNF, 85305-7, 32756-0 ####[facility] LABCLIA [id number] [place] [address] [place] Bilirubin [Mass/Vol] 0.3 mg/dL Normal 0.2-1.3 [place] Comment on above: Order Comment: Speci men Type: BLOOD SPECIMENOrdering Facility: [facility] Address: [address] [place] [address] Performed By: #### 2 4323-8, LIPNF, 09018-9, 34996-0 ####[facility] LABCLIA [id number] [place] [address] [place] Calcium [Mass/Vol] 9.4 mg/dL Normal 8.5-10.2 [facility] Comment on above: Order Comment: Speci men Type: BLOOD SPECIMENOrdering Facility: [facility] Address: [address] [place] [address] Performed By: #### 2 4323-8, LIPNF, 98345-1, 53138-4 ####[facility] LABCLIA [id number] [place] [address] [place] Chloride [Moles/Vol] 103 mmol/L Normal 98-107 [place] Comment on above: Order Comment: Speci men Type: BLOOD SPECIMENOrdering Facility: [facility] Address: [address] [place] [address] Performed By: #### 2 4323-8, LIPNF, 52621-8, 95214-1 ####[facility] LABCLIA [id number] [place] [address] [place] CO2 [Moles/Vol] 30 mmol/L Normal 22-30 [facility] Comment on above: Order Comment: Eulalia frazier Type: BLOOD SPECIMENOrdering Facility: [facility] Address: [address] [place] [address] Performed By: #### 2 4323-8, LIPNF, 57539-6, 27095-8 ####[facility] LABCLIA [id number] [place] [address] [place] Creatinine [Mass/Vol] 0.99 mg/dL High 0.58-0.96 [facility] Comment on above: Order Comment: Eulalia frazier Type: BLOOD SPECIMENOrdering Facility: [facility] Address: [address] [place] [address] Performed By: #### 2 4323-8, LIPNF, 78615-2, 81685-9 ####[facility] LABIA [id number] [place] [address] [place] Creatinine and Glomerular filtration rate.predicted panel (S/P/Bld) 64 mL/min/1.73m??? Normal >=60 [facility] Comment on above: Order Comment: Eulalia frazier Type: BLOOD SPECIMENOrdering Facility: [facility] Address: [address] [place] [address] Result Comment: Sharon mated Glomerular Filtration Rate (eGFR) is calculated using the 2020 CKD-EPI creatinine equation. This equation utilizes serum creatinine, sex, and age as parameters. The creatinine assay has traceable calibration to isotope dilution-mass spectrometry. Refer to KDIGO guidelines for clinical interpretation. In patients with unstable renal function, e.g. those with acute kidney injury, the eGFR may not accurately reflect actual GFR. Performed By: #### 2 4323-8, LIPNF, 28983-6, 07853-5 ####[facility] LABCLIA [id number] [place] [id number] [place] Glucose [Mass/Vol] 83 mg/dL Normal 74-99 [facility] Comment on above: Order Comment: Speci men Type: BLOOD SPECIMENOrdering Facility: [facility] Address: [address] [place] [address] Result Comment: The [place] Diabetes Association (ADA) provides guidance for cutoff values for fasting glucose and random glucose. The ADA defines fasting as no caloric intake for at least 8 hours. Fasting plasma glucose results between 100 to 125 mg/dL indicate increased risk for diabetes (prediabetes).Fasting plasma glucose results greater than or equal to 126 mg/dL meet the criteria for diagnosis of diabetes. In the absence of unequivocal hyperglycemia, results should be confirmed by repeat testing. In a patient with classic symptoms of hyperglycemia or hyperglycemic crisis, random plasma glucose results greater than or equal to 200 mg/dL meet the criteria for diagnosis of diabetes.Reference: Standards of Medical Care in Diabetes 2016, [place] Diabetes Association. Diabetes Care. 2016.39(Suppl 1). Performed By: #### 2 4323-8, LIPNF, 12024-5, 31243-7 ####[facility] LABCLIA [id number] [place] [address] [place] Potassium [Moles/Vol] 4.5 mmol/L Normal 3.7-5.1 [facility] Comment on above: Order Comment: Eulalia frazier Type: BLOOD SPECIMENOrdering Facility: [facility] Address: [address] [place] [address] Performed By: #### 2 4323-8, LIPNF, 39591-8, 11814-7 ####[facility] LABCLIA [id number] [place] [id number] [place] Protein [Mass/Vol] 6.9 g/dL Normal 6.3-8.0 [facility] Comment on above: Order Comment: Mickeyi karin Type: BLOOD SPECIMENOrdering Facility: [facility] Address: [address] [place] [address] Performed By: #### 2 4323-8, LIPNF, 97775-9, 59697-4 ####[facility] LABCLIA [id number] [place] [id number] [place] Sodium [Moles/Vol] 143 mmol/L Normal 136-144 [facility] Comment on above: Order Comment: Mickeyi men Type: BLOOD SPECIMENOrdering Facility: [facility] Address: [address] [place] [address] Performed By: #### 2 4323-8, LIPNF, 58851-6, 53041-9 ####[facility] LABCLIA [id number] [place] [address] [place] Urea nitrogen [Mass/Vol] 25 mg/dL High 7-21 [facility] Comment on above: Order Comment: Mickeyi men Type: BLOOD SPECIMENOrdering Facility: [facility] Address: [address] [place] [address] Performed By: #### 2 4323-8, LIPNF, 18421-2, 27891-3 ####[facility] LABIA [id number] [place] [address] [place] HbA1c (Bld)on 04-20-2024 Average glucose Estimated from glycated hemoglobin (Bld) [Mass/Vol] 111 mg/dL Normal [facility] Comment on above: Order Comment: Eulalia frazier Type: BLOOD SPECIMENOrdering Facility: [facility] Address: [address] [place] [address] Result Comment: eAG: (Estimated average glucose) is a calculated value from HgbA1c and is employee representative of the average blood glucose level in the last 2-3 month period. Performed By: #### 5 5454-3 ####[facility] LABIA [id number] [place] [address] [place] HbA1c (Bld) [Mass fraction] 5.5 % Normal 4.3-5.6 [facility] Comment on above: Order Comment: Eulalia men Type: BLOOD SPECIMENOrdering Facility: [facility] Address: [address] [place] [address] Result Comment: [place] Diabetes Association guidelines indicate that patients with HgbA1c in the range 5.7-6.4% are at increased risk for development of diabetes, and intervention by lifestyle modification may be beneficial. HgbA1c greater or equal to 6.5% is considered diagnostic of diabetes. Performed By: #### 5 5454-3 ####[facility] LABCLIA [id number] [place] [address] [place] LIPID PANEL, NONFASTINGon Cholesterol [Mass/Vol] 159 mg/dL Normal <200 [facility] Comment on above: Order Comment: Speci men Type: BLOOD SPECIMENOrdering Facility: [facility] Address: [address] [place] [address] Result Comment: <200 mg/dL, Desirable 200-239 mg/dL, Borderline high>239 mg/dL, High Performed By: #### 2 4323-8, LIPNF, 20117-9, 22833-2 ####[facility] LABIA [id number] [place] [address] [place] HDL CHOLESTEROL, NF 51 mg/dL Normal >39 [facility] Comment on above: Order Comment: Speci men Type: BLOOD SPECIMENOrdering Facility: [facility] Address: [address] [place] [address] Result Comment: 40-5 9 mg/dL, Acceptable>59 mg/dL, High: Negative risk factor for coronary heart disease<40 mg/dL, Low: Positive risk factor for coronary heart disease Performed By: #### 2 4323-8, LIPNF, 05525-5, 79091-0 ####[facility] LABIA [id number] [place] [address] [place] LDL CHOLESTEROL, NF 88 mg/dL Normal <100 [facility] Comment on above: Order Comment: Speci men Type: BLOOD SPECIMENOrdering Facility: [facility] Address: [address] [place] [address] Result Comment: <100 mg/dL, Optimal 100-129 mg/dL, Near optimal/above optimal 130-159 mg/dL, Borderline high 160-189 mg/dL, High>189 mg/dL, Very highSecondary prevention optimal LDL Cholesterol levels are recommended to be < 70 mg/dL Performed By: #### 2 4323-8, LIPNF, 69680-5, 11569-9 ####[facility] LABCLIA [id number] [place] [address] [place] LDL/HDL RATIO, NF 1.73 mg/dL Normal <2.54 [facility] Comment on above: Order Comment: Speci men Type: BLOOD SPECIMENOrdering Facility: [facility] Address: [address] [place] [address] Result Comment: Refe rence:1. National Cholesterol Education Program ATP III Guideline At-A-Glance Quick Desk Reference: National Heart, Lung, and Blood [place] [facility]. National Institutes of Health. 2001: NIH Publication No. 01-3305.2. An International Atherosclerosis Society position paper: global recommendations for the management of dyslipidemia: executive summary, Atherosclerosis. 2014: 232(2):410-413. Performed By: #### 2 4323-8, LIPNF, 69406-9, 20411-3 ####[facility] LABCLIA [id number] [place] [address] [place] NON HDL CHOL, NF 108 mg/dL Normal <130 [facility] Comment on above: Order Comment: Speci men Type: BLOOD SPECIMENOrdering Facility: [facility] Address: [address] [place] [address] Result Comment: <130 mg/dL, Optimal 130-159 mg/dL, Near optimal/above optimal 160-189 mg/dL, Borderline high 190-219 mg/dL, High>219 mg/dL, Very highSecondary prevention optimal non HDL Cholesterol levels are recommended to be <100 mg/dL Performed By: #### 2 4323-8, LIPNF, 02619-4, 50080-6 ####[facility] LABCLIA [id number] [place] [address] [place] T CHOL/HDL RATIO NF 3.12 mg/dL Normal <5.10 [facility] Comment on above: Order Comment: Speci men Type: BLOOD SPECIMENOrdering Facility: [facility] Address: [address] [place] [address] Performed By: #### 2 4323-8, LIPNF, 97208-3, 30911-0 ####[facility] LABCLIA [id number] [place] [id number] [place] TRIGLYCERIDES, NF 100 mg/dL Normal <150 [facility] Comment on above: Order Comment: Speci men Type: BLOOD SPECIMENOrdering Facility: [facility] Address: [address] [place] [address] Result Comment: <150 mg/dL, Normal 150-199 mg/dL, Borderline high 200-499 mg/dL, High>499 mg/dL, Very high Performed By: #### 2 4323-8, LIPNF, 00434-1, 03642-5 ####[facility] LABCLIA [id number] [address] [place] VLDL CHOLESTEROL, NF 20 mg/dL Normal <30 [place] Comment on above: Order Comment: Speci men Type: BLOOD SPECIMENOrdering Facility: [facility] Address: [address] [place] [address] Performed By: #### 2 4323-8, LIPNF, , 02374-2 ####[facility] LABCLIA [id number] [address] [place] Magnesium SerPl-mCncon 04-20 Magnesium [Mass/Vol] 2.3 mg/dL Normal 1.7-2.3 [place] Comment on above: Order Comment: Speci men Type: BLOOD SPECIMENOrdering Facility: [facility] Address: [address] [place] [address] Performed By: #### 2 4323-8, LIPNF, 98372-1, 80107-2 ####[facility] LABCLIA [id number] [place] AV[id number] NT-proBNP [facility] 04-20 Natriuretic peptide.B prohormone N-Terminal [Mass/Vol] 129 pg/mL High <125 [facility] Comment on above: Order Comment: Speci men Type: BLOOD SPECIMENOrdering Facility: External Submitter Address: , , Performed By: #### 2 4323-8, LIPNF, 19641-1, 77275-7 ####[facility] LABCLIA [id number] [place] [address] [place] Urinalysis complete panel (U )on 04-20-2024 Bacteria LM.HPF (Urine sed) [#/Area] Negative Normal Negative [facility] Comment on above: Order Comment: Speci men Type: URINE SPECIMENOrdering Facility: [facility] Address: [address] [place] [address] Performed By: #### 2 4356-8 ####[facility] LABCLIA [id number] [place] [address] [place] Bilirubin Ql (U) Negative Normal Negative [facility] Comment on above: Order Comment: Speci men Type: URINE SPECIMENOrdering Facility: [facility] Address: [address] [place] [address] Performed By: #### 2 4356-8 ####[facility] LABIA [id number] [place] [address] [place] Clarity (Unsp spec) Clear Normal Clear [facility] Comment on above: Order Comment: Speci men Type: URINE SPECIMENOrdering Facility: [facility] Address: [address] [place] [address] Performed By: #### 2 4356-8 ####[facility] LABCLIA [id number] [place] [address] [place] Color (U) Yellow Normal Yellow [facility] Comment on above: Order Comment: Speci men Type: URINE SPECIMENOrdering Facility: [facility] Address: [address] [place] [address] Performed By: #### 2 4356-8 ####[facility] LABCLIA [id number] [place] [address] [place] Epithelial cells LM.HPF (Urine sed) [#/Area] None Seen Normal [facility] Comment on above: Order Comment: Speci men Type: URINE SPECIMENOrdering Facility: [facility] Address: [address] [place] [address] Performed By: #### 2 4356-8 ####[facility] LABCLIA [id number] [address] [place] Glucose Test strip (U) [Mass/Vol] 2+ Abnormal Negative [facility] Comment on above: Order Comment: Speci men Type: URINE SPECIMENOrdering Facility: [facility] Address: [address] [place] [address] Performed By: #### 2 4356-8 ####[facility] LABCLIA [id number] [place] [address] [place] Hemoglobin Ql (U) Negative Normal Negative [facility] Comment on above: Order Comment: Speci men Type: URINE SPECIMENOrdering Facility: [facility] Address: [address] [place] [address] Performed By: #### 2 4356-8 ####[facility] LABCLIA [id number] [place] [address] [place] Hyaline casts (Urine sed) [#/Area] 0 /[LPF] Normal 0 /LPF [facility] Comment on above: Order Comment: Speci men Type: URINE SPECIMENOrdering Facility: [facility] Address: [address] [place] [address] Performed By: #### 2 4356-8 ####[facility] LABCLIA [id number] [place] [address] [place] Ketones Ql (U) Negative Normal Negative [facility] Comment on above: Order Comment: Speci men Type: URINE SPECIMENOrdering Facility: [facility] Address: [address] [place] [address] Performed By: #### 2 4356-8 ####[facility] LABCL[facility] [id number] [place] [address] [place] Leukocyte esterase Test strip Ql (U) Negative Normal Negative [facility] Comment on above: Order Comment: Speci men Type: URINE SPECIMENOrdering Facility: [facility] Address: [address] [place] [address] Performed By: #### 2 4356-8 ####[facility] LABCLIA [id number] [place] [address] [place] Nitrite Ql (U) Negative Normal Negative [facility] Comment on above: Order Comment: Speci men Type: URINE SPECIMENOrdering Facility: [facility] Address: [address] [place] [address] Performed By: #### 2 4356-8 ####[facility] LABCLIA [id number] [place] [address] [place] pH (U) 6.5 [pH] Normal <8.5 [facility] Comment on above: Order Comment: Speci men Type: URINE SPECIMENOrdering Facility: [facility] Address: [address] [place] [address] Performed By: #### 2 4356-8 ####[facility]CL[facility] [id number] [place] [address] [place] Protein (U) [Mass/Vol] Negative Normal Negative [facility] Comment on above: Order Comment: Speci men Type: URINE SPECIMENOrdering Facility: [facility] Address: [address] [place] [address] Performed By: #### 2 4356-8 ####[facility]CL[facility] [id number] [place] [address] [place] RBC LM.HPF (Urine sed) [#/Area] 0-2 /HPF Normal 0-2 /HPF [facility] Comment on above: Order Comment: Speci men Type: URINE SPECIMENOrdering Facility: [facility] Address: [address] [place] [address] Performed By: #### 2 4356-8 ####[facility] LABIA [id number] [place] [address] [place] Specific gravity (U) [Rel density] 1.012 Normal 1.005-1.030 [facility] Comment on above: Order Comment: Speci men Type: URINE SPECIMENOrdering Facility: [facility] Address: [address] [place] [address] Performed By: #### 2 4356-8 ####[facility] [id number] [place] [address] [place] Urobilinogen Ql (U) 0.2 EU/dL Normal 0.2-1.0 EU/dL Cl [facility] Comment on above: Order Comment: Speci men Type: URINE SPECIMENOrdering Facility: [facility] Address: [address] [place] [address] Performed By: #### 2 4356-8 ####[facility] [id number] [place] [address] [place] WBC LM.HPF (Urine sed) [#/Area] 0-5 /HPF Normal 0-5 /HPF [facility] Comment on above: Order Comment: Speci men Type: URINE SPECIMENOrdering Facility: [facility] Address: [address] [place] [address] Performed By: #### 2 4356-8 ####[facility] LABIA [id number] [place] [address] [place] Vit B12 [facility] 09-17-2 024 Cobalamin (Vitamin B12) [Mass/Vol] 904 pg/mL Normal 232-1245 [facility] Comment on above: Order Comment: Speci men Type: BLOOD SPECIMENOrdering Facility: [facility] Address: [address] [place] [address] Performed By: #### 2 132-9 ####[facility] LABCLIA [id number] [id number] STATES OF [facility] CNOVon 04-09-2024 CNOV Normal [facility] CNOVon 12-11-2023 CNOV Office Visit (OTFGFL ) CHRIS RICARDO ([id number]) 1960 F Date Time Provider Department 12/11/23 11:45 AM ILYA RAYGOZA OTFGFL During your visit today, we recorded the following information about you: Pulse Respiration Blood pressure Weight 68/minute 16/minute 100/60 71.7 kg Height 1.651 m Ilya Raygoza MD 12/11/2023 12:51 PM Signed Massage the external nose regularly. Consider septoplasty and inferior turbinate reduction. Ilya Raygoza MD 12/20/2023 1:00 PM Signed Procedure: Nasal endoscopy Pre-/post diagnosis: Nasal obstruction Description: Topical local anesthetic was applied through the nares bilaterally. The 30 degree rigid nasal endoscope was used bilaterally. There was nasal obstruction bilaterally. There was bilateral septal deviation. There was a good response of the inferior turbinates to topical vasoconstriction. There was no pus, polyp or mass seen. There was no evidence of septal hematoma. The findings were reviewed with the patient. Ilya Raygoza MD Created using voice recognition software, some errors may have occurred. Corrections may be performed at a later date. Ilya Raygoza MD 12/20/2023 1:00 PM Signed [place]: Chris Ricardo is a 63 year old, White, female who presents, I am here about my nose. She fell 12/01/2023 and broke her nose. She saw her PCP and then had a nasal x-ray 12/08/2023. She feels her nose looks okay. She complains of nasal obstruction that she had prior to this and it continues. She does not have general bleeding or bruising problems and takes aspirin 81 mg daily. SUBJECTIVE: I reviewed the allergies, medications, problem list, PMH/PSH, FmHx and SocHx as documented in Epic chart. PHYSICAL EXAM: VS: BP 100/60 Pulse 68 Resp 16 Ht 165.1 cm (5' 5) Wt 71.7 kg (158 lb) LMP 09/29/2008 BMI 26.29 kg/m? CONST/MS: The patient appears to be in NAD and has a normal voice quality. H/F/N: The facial motion is overall normal. There are no palpable salivary gland, thyroid or neck masses. Ears: The external ears and canals are without lesions. Each TM is intact and mobile on pneumatic otoscopy. Nose: The external nose is without lesions, it is tender to palpation but straight. The nasal mucosa appears healthy on nasal speculum exam. The septum has bilateral deviation. The IT have bilateral hypertrophy. There is bilateral nasal obstruction. OC/OP: The lips and gums are without lesions. The tongue/oral mucosa is healthy. The hard/soft palate, tonsil fossa and posterior pharynx are without lesions. The teeth have some crowns. 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 HP/LX: The mirror exam is without obvious lesion of the hypopharynx but the epiglottis blocks view of the larynx. OBJECTIVE: I reviewed the PCP note. I reviewed the nasal x-ray 12/08/2023 which shows a nondisplaced nasal fracture. ASSESSMENT AND PLAN: I counseled the patient about the differential diagnosis, natural course, treatment options and answered their questions for all diagnoses and orders: 1. Closed fracture of nasal bone, initial encounter - ICD9: 802.0, ICD10: S02.2XXA 2. Nasal obstruction - ICD9: 478.19, ICD10: J34.89 3. Deviated nasal septum - ICD9: 470, ICD10: J34.2 4. Hypertrophy of nasal turbinates - ICD9: 478.0, ICD10: J34.3 She was counseled to massage the external nose and watch if there is any shifting as it heals. She was counseled to consider septoplasty and bilateral IT SMR. Return if symptoms worsen or fail to improve. Ilya Raygoza MD 50 minutes Total time including preparation, obtaining/reviewing history, exam, interpreting results, ordering, counseling/education, referring/communicati ng and documentation. Created using voice recognition software, some errors may have occurred. Corrections may be performed at a later date. PROCEDURE NOTE Procedure: Nasal endoscopy Pre-/post diagnosis: Nasal obstruction Description: Topical local anesthetic was applied through the nares bilaterally. The 30 degree rigid nasal endoscope was used bilaterally. There was nasal obstruction bilaterally. There was bilateral septal deviation. There was a good response of the inferior turbinates to topical vasoconstriction. There was no pus, polyp or mass seen. There was no evidence of septal hematoma. The findings were reviewed with the patient. Ilya Raygoza MD Created using voice recognition software, some errors may have occurred. Corrections may be performed at a later date. Referring Provider: CHANEL GARDNER [[id number]] Allergies As of Date: 12/11/2023 Noted Allergy Reaction BEE STING 09/15/2020 7 - Swelling OMEPRAZOLE 12/01/2023 14 - Other: See Comments Comments: vivid dreams Date Reviewed: 12/11/2023 Reviewed by: Ilya Raygoza MD - Fully Assessed Reason for Visit: Nose Injury [1984] Cmt: November 30 fell, nasal fracture, lots of (more content not included)... Normal [facility] XR Nasal bones 3 Viewson IMPRESSION: Acute transverse essentially nondisplaced nasal bone fracture Oracle Reports Developer: [facility] Transcribe Date/Time: Dec 08 2023 12:06P Dictated by : BRADLY ROCHA MD This examination was interpreted and the report reviewed and electronically signed by: BRADLY ROCHA MD on Dec 08 2023 12:07PM [facility] DIVISION OF RADIOLOGY * * *Final Report* * * DATE OF EXAM: Dec 08 2023 12:00PM WOX [id number] - XR NASAL BONES 3V PA/LAT X2 / PROCEDURE REASON: Injury of nose, initial encounter * * * * Physician Interpretation * * * * TITLE: XR NASAL BONES 3V PA/LAT X2 CLINICAL INDICATION: Injury with pain TECHNIQUE: 3 view radiographic study of the nasal bone COMPARISON: None FINDINGS: Acute transverse essentially nondisplaced fracture of the nasal bones. Visualized paranasal sinuses and mastoid air cells grossly clear. DIVISION OF RADIOLOGY Provider, Sanya Stovall - 12/08/2023 * * *Final Report* * * DATE OF EXAM: Dec 08 2023 12:00PM WOX [id number] - XR NASAL BONES 3V PA/LAT X2 / PROCEDURE REASON: Injury of nose, initial encounter * * * * Physician Interpretation * * * * TITLE: XR NASAL BONES 3V PA/LAT X2 CLINICAL INDICATION: Injury with pain TECHNIQUE: 3 view radiographic study of the nasal bone COMPARISON: None FINDINGS: Acute transverse essentially nondisplaced fracture of the nasal bones. Visualized paranasal sinuses and mastoid air cells grossly clear. IMPRESSION IMPRESSION: Acute transverse essentially nondisplaced nasal bone fracture Oracle Reports Developer: KATHY Transcribe Date/Time: Dec 08 2023 12:06P Dictated by : BRADLY ROCHA MD This examination was interpreted and the report reviewed and electronically signed by: BRADLY ROCHA MD on Dec 08 2023 12:07PM EST [facility] Radiology Study observation (narrative) [facility] XR Nasal bones 3 ViewsOrdere d By: [facility] Provider on 12-08-2023 [facility] ICD REMOTE CHECKon AV Delay Adaptive Paced Minimum (ms) 180 ms [facility] AV Delay Adaptive Sensed Minimum (ms) 150 ms [facility] AV Delay Adaptive Status DISABLED [facility] Battery Voltage 2.96 V [facility] Oskar RA Pacing Amplitude (volts) 1.5 V [facility] Oskar RA Pacing Polarity BI [facility] Oskar RA Pacing Pulse Width (ms) 0.4 ms [facility] Oskar RA Sensing Amplitude (mvolts) 0.3 mV [facility] Oskar RA Sensing Blanking Period (ms) 150 ms [facility] Oskar RA Sensing Polarity BI [facility] Oskar RA Sensing Refractory Period (ms) Auto [facility] Oskar RV Pacing Amplitude (volts) 2 V [facility] Oskar RV Pacing Polarity BI [facility] Oskar RV Pacing Pulse Width (ms) 0.4 ms [facility] Oskar RV Sensing Amplitude (mvolts) 0.3 mV [facility] Oskar RV Sensing Blanking Period (ms) 200 ms [facility] Oskar RV Sensing Polarity BI [facility] Detection Configuration (Vent) 1 - Zone [facility] FastVT_Detection Interval Blank [facility] ICD ATAF DetectionInterval ms 350 ms [facility] ICD ATAF DetectionStatus ENABLED [facility] ICD FastVT DetectionStatus DISABLED [facility] ICD-ADLRATE_BPM 95 {beats}/min [facility] ICD-AMS EPISODES 171 {beats}/min [facility] ICD-ATP Episodes (Vent) 0 [facility] ICD-ATRIALFIBRILLATION 0 Cl [facility] ICD-ATRIALTACHYCARDIA 2 [facility] ICD-Counters Cleared Date 01/06/2017 [facility] ICD-Device Mfg MDT [facility] ICD-Fast Ventricular Tachycardia 2 [facility] ICD-Hysteresis Rate DISABLED [facility] ICD-LEADIMPEDANCEATRIA L 437 ohm [facility] ICD-Percent Pacing (Atrial) 96.2 % [facility] ICD-Percent Pacing (Vent) 0.15 % [facility] ICD-PMT Intervention ENABLED [facility] ICD-PVC Intervention ENABLED [facility] ICD-Rate Modulation Acceleration Reaction 15 s [facility] ICD-Rate Modulation Deceleration Exercise [facility] ICD-Rate Modulation [place] 4 [facility] ICD-Rate Modulation Threshold MediumLow [facility] ICD-Shocks Aborted (Vent) 0 [facility] [id number] 0 [facility] ICD-SHOCKSABORTED 0 [facility] ICD-SHOCKSDELIVEREDVEN TRICULAR 0 [facility] ICD-Ventricular Fibrillation 0 [facility] Lead Impedance (RV) [address] [facility] Lead Impedance High Voltage 82 ohm [facility] Lead1 Mfg MDT [facility] Lead2 Mfg MDT [facility] Location RA [facility] Location RV [facility] Lower Rate (bpm) 60 {beats}/min [facility] Max Sensor Rate (bpm) 130 {beats}/min [facility] MDT_PROG_TACHY_ZONE_DE TECTIONS_STATUS ENABLED [facility] Model [id number] Evera MRI XT [facility] Model 5076 CapSureFix Novus [facility] Model 6935M Sprint Quattro Secure S [facility] Serial Number [id number] [facility] Serial Number [id number] [facility] Serial Number [id number] [facility] Test Charge Energy 18 J [facility] Test Charge Time 4.174 [facility] Therapy Status (Vent) Enabled [facility] Thresh RA Capture Amplitude (volts) 0.375 V [facility] Thresh RA Capture Duration (ms) 0.4 ms [facility] Thresh RA Sensing Amplitude (mvolts) 2 mV [facility] Thresh RV Capture Amplitude (VOLTS) 0.875 V [facility] Thresh RV Capture Duration (MS) 0.4 ms [facility] Thresh RV Sensing Amplitude (MVOLTS) 8.125 mV [facility] Tracking Rate (bpm) 130 {beats}/min [facility] VF Zone Detection Interval 340 ms [facility] VF Zone Therapy Configuration 2 ATP(s) + 4 Shock(s) [facility] No Panel Informationon 11-17 BLANK _ [facility] ICD-ATRIALTACHYCARDIA 0 [facility] ICD-Fast Ventricular Tachycardia 0 [facility] Implant Date 01/06/2017 [facility] CBC W Auto Differential pane l (Bld)on 06-18-2023 Basophils (Bld) [#/Vol] 0.03 10*3/uL <0.11 k/uL [facility] Basophils/100 WBC (Bld) 0.7 % [facility] Differential cell count method Nom (Bld) Auto [facility] Eosinophils (Bld) [#/Vol] 0.05 10*3/uL <0.46 k/uL [facility] Eosinophils/100 WBC (Bld) 1.2 % [facility] Erythrocyte distribution width (RBC) [Ratio] 13.4 % 11.5 - 15.0 % [facility] Hematocrit (Bld) [Volume fraction] 41.8 % 36.0 - 46.0 % [facility] Hemoglobin (Bld) [Mass/Vol] 13.4 g/dL 11.5 - 15.5 g/dL [facility] Immature granulocytes (Bld) [#/Vol] <0.10 k/uL [facility] Immature granulocytes/100 WBC (Bld) 0.2 % [facility] Lymphocytes (Bld) [#/Vol] 1.51 10*3/uL 1.00 - 4.00 k/uL [facility] Lymphocytes/100 WBC (Bld) 36.5 % [facility] MCH (RBC) [Entitic mass] 29.4 pg 26.0 - 34.0 pg [facility] MCHC (RBC) [Mass/Vol] 32.1 g/dL 30.5 - 36.0 g/dL [facility] MCV (RBC) [Entitic vol] 91.7 fL 80.0 - 100.0 fL [facility] Monocytes (Bld) [#/Vol] 0.46 10*3/uL <0.87 k/uL [facility] Monocytes/100 WBC (Bld) 11.1 % [facility] Neutrophils (Bld) [#/Vol] 2.08 10*3/uL 1.45 - 7.50 k/uL [facility] Neutrophils/100 WBC (Bld) 50.3 % [facility] Nucleated RBC (Bld) [#/Vol] <0.01 k/uL [facility] Nucleated RBC/100 WBC (Bld) [Ratio] 0.0 /100 WBC [facility] Platelet mean volume (Bld) [Entitic vol] 11.4 fL 9.0 - 12.7 fL [facility] Platelets (Bld) [#/Vol] 166 10*3/uL 150 - 400 k/uL [facility] RBC (Bld) [#/Vol] 4.56 10*6/uL 3.90 - 5.2 0 m/uL [facility] WBC (Bld) [#/Vol] 4.14 10*3/uL 3.70 - 11. 00 k/uL [facility] Comprehensive metabolic 2000 panelon 06-18-2023 Albumin [Mass/Vol] 4.4 g/dL 3.9 - 4.9 g/dL [facility] ALP [Catalytic activity/Vol] 84 U/L 34 - 123 U/L [facility] ALT [Catalytic activity/Vol] 23 U/L 7 - 38 U/L [facility] Anion gap [Moles/Vol] 8 mmol/L Low 9 - 18 mmol/L [facility] AST [Catalytic activity/Vol] 26 U/L 13 - 35 U/L [facility] Bilirubin [Mass/Vol] 0.2 mg/dL 0.2 - 1 .3 mg/dL [facility] Calcium [Mass/Vol] 9.2 mg/dL 8.5 - 10. 2 mg/dL [facility] Chloride [Moles/Vol] 104 mmol/L 97 - 10 5 mmol/L [facility] CO2 [Moles/Vol] 30 mmol/L 22 - 30 mmol/L [facility] Creatinine [Mass/Vol] 0.88 mg/dL 0.58 - 0.96 mg/dL [facility] Estimated Glomerular Filtration Rate 74 mL/min/1.73m >=60 mL/min/1.73m [facility] Glucose [Mass/Vol] 69 mg/dL Low 74 - 99 mg/dL [facility] Potassium [Moles/Vol] 4.6 mmol/L 3.7 - 5.1 mmol/L [facility] Protein [Mass/Vol] 6.4 g/dL 6.3 - 8.0 g/dL Cl [facility] Sodium [Moles/Vol] 142 mmol/L 136 - 144 mmol/L [facility] Urea nitrogen [Mass/Vol] 22 mg/dL High 7 - 21 mg/dL [facility] NT PRO BNPon 06-18-2023 Natriuretic peptide.B prohormone N-Terminal [Mass/Vol] 223 pg/mL High <125 pg/mL [facility] UA DIP, URINE (POC)on 2022 BILIRUBIN UA (POCT) Negative Negative [facility] CLARITY UA (POCT) Clear [facility] COLOR UA (POCT) Yellow [facility] GLUCOSE UA (POCT) Negative Negative mg/dL [facility] Hemoglobin Ql (U) Negative Negative [facility] KETONE UA (POCT) Negative Negative mg/dL [facility] LEUKOCYTES UA (POCT) Negative Negative [facility] NITRITE UA (POCT) Negative Negative [facility] PH UA (POCT) 6.0 4.5 - 8.0 [facility] Protein Ql (U) Negative Negative mg/dL [facility] SPECIFIC GRAVITY UA (POCT) 1.010 1.005 - 1.030 [facility] UROBILINOGEN UA (POCT) 0.2 E.U./dL Normal E.U./ dL [facility] ICD REMOTE CHECKon 3 AV Delay Adaptive Paced Minimum (ms) 180 ms [facility] AV Delay Adaptive Sensed Minimum (ms) 150 ms [facility] AV Delay Adaptive Status DISABLED [facility] Battery Voltage 2.97 V [facility] Oskar RA Pacing Amplitude (volts) 1.5 V [facility] Oskar RA Pacing Polarity BI [facility] Oskar RA Pacing Pulse Width (ms) 0.4 ms [facility] Oskar RA Sensing Amplitude (mvolts) 0.3 mV [facility] Oskar RA Sensing Blanking Period (ms) 150 ms [facility] Oskar RA Sensing Polarity BI [facility] Oskar RA Sensing Refractory Period (ms) Auto [facility] Oskar RV Pacing Amplitude (volts) 2 V [facility] Oskar RV Pacing Polarity BI [facility] Oskar RV Pacing Pulse Width (ms) 0.4 ms [facility] Oskar RV Sensing Amplitude (mvolts) 0.3 mV [facility] Oskar RV Sensing Blanking Period (ms) 200 ms [facility] Oskar RV Sensing Polarity BI [facility] Detection Configuration (Vent) 1 - Zone [facility] FastVT_Detection Interval Blank [facility] ICD ATAF DetectionInterval ms 350 ms [facility] ICD ATAF DetectionStatus ENABLED [facility] ICD FastVT DetectionStatus DISABLED [facility] ICD-ADLRATE_BPM 95 {beats}/min [facility] ICD-AMS EPISODES 171 {beats}/min [facility] ICD-ATP Episodes (Vent) 0 [facility] ICD-ATRIALFIBRILLATION 0 Cl [facility] ICD-Counters Cleared Date 01/06/2017 [facility] ICD-Device Mfg MDT [facility] ICD-Hysteresis Rate DISABLED [facility] ICD-LEADIMPEDANCEATRIA L 437 ohm [facility] ICD-Percent Pacing (Atrial) 97.14 % [facility] ICD-Percent Pacing (Vent) 0.12 % [facility] ICD-PMT Intervention ENABLED [facility] ICD-PVC Intervention ENABLED [facility] ICD-Rate Modulation Acceleration Reaction 15 s [facility] ICD-Rate Modulation Deceleration Exercise [facility] ICD-Rate Modulation Calloway 4 [facility] ICD-Rate Modulation Threshold MediumLow [facility] ICD-Shocks Aborted (Vent) 0 [facility] [id number] 0 [facility] ICD-SHOCKSABORTED 0 [facility] ICD-SHOCKSDELIVEREDVEN TRICULAR 0 [facility] ICD-Ventricular Fibrillation 0 [facility] Lead Impedance (RV) [address] [facility] Lead Impedance High Voltage 77 ohm [facility] Lead1 Mfg MDT [facility] Lead2 Mfg MDT [facility] Location RA [facility] Location RV [facility] Lower Rate (bpm) 60 {beats}/min [facility] Max Sensor Rate (bpm) 120 {beats}/min [facility] MDT_PROG_TACHY_ZONE_DE TECTIONS_STATUS ENABLED [facility] Model [id number] Evera MRI XT DR [facility] Model 5076 CapSureFix Novus [facility] Model 6935M Sprint Quattro Secure S [facility] Serial Number [id number] [facility] Serial Number [id number] [facility] Serial Number [id number] [facility] Test Charge Energy 18 J [facility] Test Charge Time 4.083 [facility] Therapy Status (Vent) Enabled [facility] Thresh RA Capture Amplitude (volts) 0.375 V [facility] Thresh RA Capture Duration (ms) 0.4 ms [facility] Thresh RA Sensing Amplitude (mvolts) 1.125 mV [facility] Thresh RV Capture Amplitude (VOLTS) 0.875 V [facility] Thresh RV Capture Duration (MS) 0.4 ms [facility] Thresh RV Sensing Amplitude (MVOLTS) 8.125 mV [facility] Tracking Rate (bpm) 130 {beats}/min [facility] VF Zone Detection Interval 340 ms [facility] VF Zone Therapy Configuration 2 ATP(s) + 4 Shock(s) [facility] No Panel Informationon 05-14 BLANK _ [facility] ICD-ATRIALTACHYCARDIA 0 [facility] ICD-Fast Ventricular Tachycardia 0 [facility] Implant Date 01/06/2017 [facility] T4 FREE/FREE THYROXon 2022 Free T4 [Mass/Vol] 1.2 ng/dL 0.9 - 1.7 ng/dL [facility] TSH BLDon 05-02-2023 TSH Qn 2.370 m[IU]/L 0.270 - 4.200 mIU/L [facility] HEMOGLOBIN A1C (POC)on 05-01 HbA1c (Bld) [Mass fraction] 5.4 % 4.2 - 5.6 % [facility] ICD CLINIC CHECKon AV Delay Adaptive Paced Minimum (ms) 180 ms [facility] AV Delay Adaptive Sensed Minimum (ms) 150 ms [facility] AV Delay Adaptive Status DISABLED [facility] Battery Voltage 2.97 V [facility] Oskar RA Pacing Amplitude (volts) 1.5 V [facility] Oskar RA Pacing Polarity BI [facility] Oskar RA Pacing Pulse Width (ms) 0.4 ms [facility] Oskar RA Sensing Amplitude (mvolts) 0.3 mV [facility] Oskar RA Sensing Blanking Period (ms) 150 ms [facility] Oskar RA Sensing Polarity BI [facility] Oskar RA Sensing Refractory Period (ms) Auto [facility] Oskar RV Pacing Amplitude (volts) 2 V [facility] Oskar RV Pacing Polarity BI [facility] Oskar RV Pacing Pulse Width (ms) 0.4 ms [facility] Oskar RV Sensing Amplitude (mvolts) 0.3 mV [facility] Oskar RV Sensing Blanking Period (ms) 200 ms [facility] Oskar RV Sensing Polarity BI [facility] Detection Configuration (Vent) 1 - Zone [facility] FastVT_Detection Interval Blank [facility] ICD ATAF DetectionInterval ms 350 ms [facility] ICD ATAF DetectionStatus ENABLED [facility] ICD FastVT DetectionStatus DISABLED [facility] ICD-ADLRATE_BPM 95 {beats}/min [facility] ICD-AMS EPISODES 171 {beats}/min [facility] ICD-ATP Episodes (Vent) 0 [facility] ICD-ATRIALFIBRILLATION 0 Cl [facility] ICD-Counters Cleared Date 01/06/2017 [facility] ICD-Device Paige MCINTOSH [facility] ICD-Fast Ventricular Tachycardia 2 [facility] ICD-Hysteresis Rate DISABLED [facility] ICD-LEADIMPEDANCEATRIA L 456 ohm [facility] ICD-Percent Pacing (Atrial) 97.19 % [facility] ICD-Percent Pacing (Vent) 0.09 % [facility] ICD-PMT Intervention ENABLED [facility] ICD-PVC Intervention ENABLED [facility] ICD-Rate Modulation Acceleration Reaction 15 s [facility] ICD-Rate Modulation Deceleration Exercise [facility] ICD-Rate Modulation Calloway 4 [facility] ICD-Rate Modulation Threshold MediumLow [facility] ICD-Rhythm historically SB [facility] ICD-Shocks Aborted (Vent) 0 [facility] [id number] 0 [facility] ICD-SHOCKSABORTED 0 [facility] ICD-SHOCKSDELIVEREDVEN TRICULAR 0 [facility] ICD-Ventricular Fibrillation 0 [facility] Lead Impedance (RV) [address] [facility] Lead Impedance High Voltage 80 ohm [facility] Lead1 Paige MCINTOHS [facility] Lead2 Paige MCINTOSH [facility] Location RA [facility] Location RV [facility] Lower Rate (bpm) 60 {beats}/min [facility] Max Sensor Rate (bpm) 120 {beats}/min [facility] MDT_PROG_TACHY_ZONE_DE TECTIONS_STATUS ENABLED [facility] Model [id number] Evera MRI XT DR [facility] Model 5076 CapSureFix Novus [facility] Model 6935M Sprint Quattro Secure S [facility] Pacemaker Dependent? NO [facility] Serial Number [id number] [facility] Serial Number [id number] [facility] Serial Number [id number] [facility] Test Charge Energy 18 J [facility] Test Charge Time 4.063 [facility] Therapy Status (Vent) Enabled [facility] Thresh RA Capture Amplitude (volts) 0.375 V [facility] Thresh RA Capture Duration (ms) 0.4 ms [facility] Thresh RA Sensing Amplitude (mvolts) 2.625 mV [facility] Thresh RV Capture Amplitude (VOLTS) 0.875 V [facility] Thresh RV Capture Duration (MS) 0.4 ms [facility] Thresh RV Sensing Amplitude (MVOLTS) 7.875 mV [facility] Tracking Rate (bpm) 130 {beats}/min [facility] VF Zone Detection Interval 340 ms [facility] VF Zone Therapy Configuration 2 ATP(s) + 4 Shock(s) [facility] No Panel Informationon 02-12 BLANK _ [facility] ICD-Fast Ventricular Tachycardia 0 [facility] Implant Date 01/06/2017 [facility] ICD CLINIC CHECKon 3 AV Delay Adaptive Paced Minimum (ms) 180 ms [facility] AV Delay Adaptive Sensed Minimum (ms) 150 ms [facility] AV Delay Adaptive Status DISABLED [facility] Battery Voltage 2.98 V [facility] Oskar RA Pacing Amplitude (volts) 1.5 V [facility]ar RA Pacing Polarity BI [facility] Pacing Pulse Width (ms) 0.4 ms [facility] RA Sensing Amplitude (mvolts) 0.3 mV [facility] Sensing Blanking Period (ms) 150 ms [facility] RA Sensing Polarity BI [facility] Sensing Refractory Period (ms) Auto [facility] RV Pacing Amplitude (volts) 2 V [facility] RV Pacing Polarity BI [facility] RV Pacing Pulse Width (ms) 0.4 ms [facility] RV Sensing Amplitude (mvolts) 0.3 mV [facility] RV Sensing Blanking Period (ms) 200 ms [facility] RV Sensing Polarity BI [facility] Detection Configuration (Vent) 1 - Zone [facility] FastVT_Detection Interval Blank [facility] ICD ATAF DetectionInterval ms 350 ms [facility] ICD ATAF DetectionStatus ENABLED [facility] ICD FastVT DetectionStatus DISABLED [facility] ICD-ADLRATE_BPM 95 {beats}/min [facility] ICD-AMS EPISODES 171 {beats}/min [facility] ICD-ATP Episodes (Vent) 0 [facility] ICD-ATRIALFIBRILLATION 0 Cl [facility] ICD-Counters Cleared Date 01/06/2017 [facility] ICD-Device Mfg MDT [facility] ICD-Fast Ventricular Tachycardia 1 [facility] ICD-Hysteresis Rate DISABLED [facility] ICD-LEADIMPEDANCEATRIA L 456 ohm [facility] ICD-Percent Pacing (Atrial) 96.57 % [facility] ICD-Percent Pacing (Vent) 0.07 % [facility] ICD-PMT Intervention ENABLED [facility] ICD-PVC Intervention ENABLED [facility] ICD-Rate Modulation Acceleration Reaction 15 s [facility] ICD-Rate Modulation Deceleration Exercise [facility] ICD-Rate Modulation [place] 4 [facility] ICD-Rate Modulation Threshold MediumLow [facility] ICD-Rhythm SB 47 bpm [facility] ICD-Shocks Aborted (Vent) 0 [facility] [id number] 0 [facility] ICD-SHOCKSABORTED 0 [facility] ICD-SHOCKSDELIVEREDVEN TRICULAR 0 [facility] ICD-Ventricular Fibrillation 0 [facility] Lead Impedance (RV) [address] [facility] Lead Impedance High Voltage 85 ohm [facility] Lead1 Mfg MDT [facility] Lead2 Mfg MDT [facility] Location RA [facility] Location RV [facility] Lower Rate (bpm) 60 {beats}/min [facility] Max Sensor Rate (bpm) 120 {beats}/min [facility] MDT_PROG_TACHY_ZONE_DE TECTIONS_STATUS ENABLED [facility] Model [id number] Evera MRI XT DR [facility] Model 5076 CapSureFix Novus [facility] Model 6935M Sprint Quattro Secure S [facility] Pacemaker Dependent? NO [facility] Serial Number [id number] [facility] Serial Number [id number] [facility] Serial Number [id number] [facility] Test Charge Energy [facility] Test Charge Time 4.013 [facility] Therapy Status (Vent) Enabled [facility] Thresh RA Capture Amplitude (volts) 0.5 V [facility] Thresh RA Capture Duration (ms) 0.4 ms [facility] Thresh RA Sensing Amplitude (mvolts) 1.6 mV [facility] Thresh RV Capture Amplitude (VOLTS) 0.75 V [facility] Thresh RV Capture Duration (MS) 0.4 ms [facility] Thresh RV Sensing Amplitude (MVOLTS) 9.5 mV [facility] Tracking Rate (bpm) 130 {beats}/min [facility] VF Zone Detection Interval 340 ms [facility] VF Zone Therapy Configuration 2 ATP(s) + 4 Shock(s) [facility] No Panel Informationon 11-12 BLANK _ [facility] ICD-Fast Ventricular Tachycardia 0 [facility] Implant Date 01/06/2017 [facility] XR Abdomen Supine and Uprigh ton 08-14-2022 IMPRESSION: 1. No evidence of a bowel obstruction 2. Hyperdense material projecting over the lower pole of the left kidney could represent kidney stones Oracle Reports Developer: PSCB Transcribe Date/Time: Aug 14 2022 2:50P Dictated by : TAHIRA IYER MD This examination was interpreted and the report reviewed and electronically signed by: TAHIRA IYER MD on Aug 14 2022 2:51PM [facility] DIVISION OF RADIOLOGY * * *Final Report* * * DATE OF EXAM: Aug 14 2022 8:26AM WOX [id number] - XR ABDOMEN 1V SUPINE / PROCEDURE REASON: multiple diagnoses * * * * Physician Interpretation * * * * Indication: Abdominal pain Comparison: X-ray abdomen 05/23/2022 2 x-rays of the abdomen are obtained. There is a non-obstructed bowel gas pattern. Moderate fecal material in the colon. There is no hepatomegaly or splenomegaly. Hyperdense material projecting over the lower pole of the left kidney could represent kidney stones. Multiple phleboliths in the pelvis.. There are no acute osseous abnormalities. DIVISION OF RADIOLOGY Provider, Sanya Stovall - 08/14/2022 * * *Final Report* * * DATE OF EXAM: Aug 14 2022 8:26AM WOX 5289 - XR ABDOMEN 1V SUPINE / PROCEDURE REASON: multiple diagnoses * * * * Physician Interpretation * * * * Indication: Abdominal pain Comparison: X-ray abdomen 05/23/2022 2 x-rays of the abdomen are obtained. There is a non-obstructed bowel gas pattern. Moderate fecal material in the colon. There is no hepatomegaly or splenomegaly. Hyperdense material projecting over the lower pole of the left kidney could represent kidney stones. Multiple phleboliths in the pelvis.. There are no acute osseous abnormalities. IMPRESSION IMPRESSION: 1. No evidence of a bowel obstruction 2. Hyperdense material projecting over the lower pole of the left kidney could represent kidney stones [employer] Reports Developer: KATHY Transcribe Date/Time: Aug 14 2022 2:50P Dictated by : TAHIRA IYER MD This examination was interpreted and the report reviewed and electronically signed by: TAHIRA IYER MD on Aug 14 2022 2:51PM EST [facility] Radiology Study observation (narrative) [facility] XR Abdomen Supine and Uprigh tOrdered By: [facility] Provider on 08-14-[address] [facility] [address] ABD/PEL WO IVCONon 2021 [facility] ICD REMOTE CHECKon 2 AV Delay Adaptive Paced Minimum (ms) 180 ms [facility] AV Delay Adaptive Sensed Minimum (ms) 150 ms [facility] AV Delay Adaptive Status DISABLED [facility] Battery Voltage 2.95 V [facility] RA Pacing Amplitude (volts) 1.5 V [facility] RA Pacing Polarity BI [facility] RA Pacing Pulse Width (ms) 0.4 ms [facility] RA Sensing Amplitude (mvolts) 0.3 mV [facility] RA Sensing Blanking Period (ms) 150 ms [facility] RA Sensing Polarity BI [facility] RA Sensing Refractory Period (ms) Auto [facility] RV Pacing Amplitude (volts) 2 V [facility] RV Pacing Polarity BI [facility] RV Pacing Pulse Width (ms) 0.4 ms [facility] RV Sensing Amplitude (mvolts) 0.3 mV [facility] RV Sensing Blanking Period (ms) 200 ms [facility] RV Sensing Polarity BI [facility] Detection Configuration (Vent) 1 - Zone [facility] FastVT_Detection Interval Blank [facility] ICD ATAF DetectionInterval ms 350 ms [facility] ICD ATAF DetectionStatus ENABLED [facility] ICD FastVT DetectionStatus DISABLED [facility] ICD-ADLRATE_BPM 95 {beats}/min [facility] ICD-AMS EPISODES 171 {beats}/min [facility] ICD-ATP Episodes (Vent) 0 [facility] ICD-ATRIALFIBRILLATION 0 Cl [facility] ICD-Counters Cleared Date 01/06/2017 [facility] ICD-Device Mfg MDT [facility] ICD-Hysteresis Rate DISABLED [facility] ICD-LEADIMPEDANCEATRIA L 456 ohm [facility] ICD-Percent Pacing (Atrial) 96.18 % [facility] ICD-Percent Pacing (Vent) 0.08 % [facility] ICD-PMT Intervention ENABLED [facility] ICD-PVC Intervention ENABLED [facility] ICD-Rate Modulation Acceleration Reaction 15 s [facility] ICD-Rate Modulation Deceleration Exercise [facility] ICD-Rate Modulation [place]ay 4 [facility] ICD-Rate Modulation Threshold MediumLow [facility] ICD-Shocks Aborted (Vent) 0 [facility] [id number] 0 [facility] ICD-SHOCKSABORTED 0 [facility] ICD-SHOCKSDELIVEREDVEN TRICULAR 0 [facility] ICD-Ventricular Fibrillation 0 [facility] Lead Impedance (RV) [address] [facility] Lead Impedance High Voltage 81 ohm [facility] Lead1 Mfg MDT [facility] Lead2 Mfg MDT [facility] Location RA [facility] Location RV [facility] Lower Rate (bpm) 60 {beats}/min [facility] Max Sensor Rate (bpm) 120 {beats}/min [facility] MDT_PROG_TACHY_ZONE_DE TECTIONS_STATUS ENABLED [facility] Model [id number] Evera MRI XT [facility] Model 5076 CapSureFix Novus [facility] Model 6935M Sprint Quattro Secure S [facility] Serial Number [id number] [facility] Serial Number [id number] [facility] Serial Number [id number] [facility] Test Charge Energy [facility] Test Charge Time 3.973 [facility] Therapy Status (Vent) Enabled [facility] Thresh RA Capture Amplitude (volts) 0.375 V [facility] Thresh RA Capture Duration (ms) 0.4 ms [facility] Thresh RA Sensing Amplitude (mvolts) 1.5 mV [facility] Thresh RV Capture Amplitude (VOLTS) 0.625 V [facility] Thresh RV Capture Duration (MS) 0.4 ms [facility] Thresh RV Sensing Amplitude (MVOLTS) 10.5 mV [facility] Tracking Rate (bpm) 130 {beats}/min [facility] VF Zone Detection Interval 340 ms [facility] VF Zone Therapy Configuration 2 ATP(s) + 4 Shock(s) [facility] No Panel Informationon 05-28 BLANK _ [facility] ICD-ATRIALTACHYCARDIA 0 [facility] ICD-Fast Ventricular Tachycardia 0 [facility] Implant Date 01/06/2017 [facility] XR Abdomen Supine and Uprigh ton 05-24-2022 IMPRESSION: 5 mm radiopaque opacity overlying the left kidney, raising concern for kidney stone. Moderate stool burden. [employer] Reports Developer: [email or web address] Transcribe Date/Time: May 24 2022 10:42A Dictated by : MARGARET ROMERO MD This examination was interpreted and the report reviewed and electronically signed by: MARGAERT ROMERO MD on May 24 2022 10:46AM [facility] DIVISION OF RADIOLOGY * * *Final Report* * * DATE OF EXAM: May 23 2022 1:06PM WOX 5289 - XR ABDOMEN 1V SUPINE / PROCEDURE REASON: multiple diagnoses * * * * Physician Interpretation * * * * EXAM TITLE: XR ABDOMEN 1V SUPINE EXAM DATE/TIME: 05/23/2022 1:06 PM COMPARISON: None. CLINICAL INDICATION/HISTORY: Abdominal pain TECHNIQUE: AP views of the abdomen including upright view are presented. FINDINGS: There is a 5 mm radiopaque opacity overlying the lower pole of the left kidney. A few phleboliths seen in the pelvis. No abnormally dilated bowel loops identified. Moderate amount of stool and gas demonstrated in the large bones. The bony structures appear intact. Others: There is partially visualized dual-chamber AICD. DIVISION OF RADIOLOGY Provider, Charity [facility] - 05/24/2022 * * *Final Report* * * DATE OF EXAM: May 23 2022 1:06PM WOX 5289 - XR ABDOMEN 1V SUPINE / PROCEDURE REASON: multiple diagnoses * * * * Physician Interpretation * * * * EXAM TITLE: XR ABDOMEN 1V SUPINE EXAM DATE/TIME: 05/23/2022 1:06 PM COMPARISON: None. CLINICAL INDICATION/HISTORY: Abdominal pain TECHNIQUE: AP views of the abdomen including upright view are presented. FINDINGS: There is a 5 mm radiopaque opacity overlying the lower pole of the left kidney. A few phleboliths seen in the pelvis. No abnormally dilated bowel loops identified. Moderate amount of stool and gas demonstrated in the large bones. The bony structures appear intact. Others: There is partially visualized dual-chamber AICD. IMPRESSION IMPRESSION: 5 mm radiopaque opacity overlying the left kidney, raising concern for kidney stone. Moderate stool burden. [employer] Reports Developer: PSCB Transcribe Date/Time: May 24 2022 10:42A Dictated by : MARGARET ROMERO MD This examination was interpreted and the report reviewed and electronically signed by: MARGARET ROMERO MD on May 24 2022 10:46AM EST [facility] XR Abdomen Supine and Uprigh tOrdered By: [facility] Provider on 05-24-2022 [facility] XR Abdomen Supine and Uprigh ton 05-23-2022 Radiology Study observation (narrative) [facility] DXA-AXIAL SKELETONon 022 [facility] ICD REMOTE CHECKon AV Delay Adaptive Paced Minimum (ms) 180 ms [facility] AV Delay Adaptive Sensed Minimum (ms) 150 ms [facility] AV Delay Adaptive Status DISABLED [facility] Battery Voltage 2.98 V [facility] Oskar RA Pacing Amplitude (volts) 1.5 V [facility] RA Pacing Polarity BI [facility] RA Pacing Pulse Width (ms) 0.4 ms [facility]sk[facility] RA Sensing Amplitude (mvolts) 0.3 mV [facility] RA Sensing Blanking Period (ms) 150 ms [facility] RA Sensing Polarity BI [facility] RA Sensing Refractory Period (ms) Auto [facility] RV Pacing Amplitude (volts) 2 V [facility] RV Pacing Polarity BI [facility] RV Pacing Pulse Width (ms) 0.4 ms [facility]skar RV Sensing Amplitude (mvolts) 0.3 mV [facility] RV Sensing Blanking Period (ms) 200 ms [facility] RV Sensing Polarity BI [facility] Detection Configuration (Vent) 1 - Zone [facility] FastVT_Detection Interval Blank [facility] ICD ATAF DetectionInterval ms 350 ms [facility] ICD ATAF DetectionStatus ENABLED [facility] ICD FastVT DetectionStatus DISABLED [facility] ICD-ADLRATE_BPM 95 {beats}/min [facility] ICD-AMS EPISODES 171 {beats}/min [facility] ICD-ATP Episodes (Vent) 0 [facility] ICD-ATRIALFIBRILLATION 0 Cl [facility] ICD-Counters Cleared Date 01/06/2017 [facility] ICD-Device Mfg MDT [facility] ICD-Hysteresis Rate DISABLED [facility] ICD-LEADIMPEDANCEATRIA L 437 ohm [facility] ICD-Percent Pacing (Atrial) 95.94 % [facility] ICD-Percent Pacing (Vent) 0.08 % [facility] ICD-PMT Intervention ENABLED [facility] ICD-PVC Intervention ENABLED [facility] ICD-Rate Modulation Acceleration Reaction 15 s [facility] ICD-Rate Modulation Deceleration Exercise [facility] ICD-Rate Modulation Calloway 4 [facility] ICD-Rate Modulation Threshold MediumLow [facility] ICD-Shocks Aborted (Vent) 0 [facility] [id number] 0 [facility] ICD-SHOCKSABORTED 0 [facility] ICD-SHOCKSDELIVEREDVEN TRICULAR 0 [facility] ICD-Ventricular Fibrillation 0 [facility] Lead Impedance (RV) [address] [facility] Lead Impedance High Voltage 85 ohm [facility] Lead1 Mfg MDT [facility] Lead2 Mfg MDT [facility] Location RA [facility] Location RV [facility] Lower Rate (bpm) 60 {beats}/min [facility] Max Sensor Rate (bpm) 120 {beats}/min [facility] MDT_PROG_TACHY_ZONE_DE TECTIONS_STATUS ENABLED [facility] Model [id number] Evera MRI XT [facility] Model 5076 CapSureFix Novus [facility] Model 6935M [employer] Quattro Secure S [facility] Serial Number [id number] [facility] Serial Number [id number] [facility] Serial Number [id number] [facility] Test Charge Energy [facility] Test Charge Time 3.973 [facility] Therapy Status (Vent) Enabled [facility] Thresh RA Capture Amplitude (volts) 0.5 V [facility] Thresh RA Capture Duration (ms) 0.4 ms [facility] Thresh RA Sensing Amplitude (mvolts) 1.75 mV [facility] Thresh RV Capture Amplitude (VOLTS) 0.625 V [facility] Thresh RV Capture Duration (MS) 0.4 ms [facility] Thresh RV Sensing Amplitude (MVOLTS) 10.125 mV [facility] Tracking Rate (bpm) 130 {beats}/min [facility] VF Zone Detection Interval 340 ms [facility] VF Zone Therapy Configuration 2 ATP(s) + 4 Shock(s) [facility] No Panel Informationon 01-11 BLANK _ [facility] ICD-ATRIALTACHYCARDIA 0 [facility] ICD-Fast Ventricular Tachycardia 0 [facility] Implant Date 01/06/2017 [facility]IN[facility] CHECKon AV Delay Adaptive Paced Minimum (ms) 180 ms [facility] AV Delay Adaptive Sensed Minimum (ms) 150 ms [facility] AV Delay Adaptive Status DISABLED [facility] Battery Voltage 2.99 V [facility] Oskar RA Pacing Amplitude (volts) 1.5 V [facility] Oskar RA Pacing Polarity BI [facility] Oskar RA Pacing Pulse Width (ms) 0.4 ms [facility] Oskar RA Sensing Amplitude (mvolts) 0.3 mV [facility] Oskar RA Sensing Blanking Period (ms) 150 ms [facility] Oskar RA Sensing Polarity BI [facility] Oskar RA Sensing Refractory Period (ms) Auto [facility]ar RV Pacing Amplitude (volts) 2 V [facility]ar RV Pacing Polarity BI [facility]skar RV Pacing Pulse Width (ms) 0.4 ms [facility] Oskar RV Sensing Amplitude (mvolts) 0.3 mV [facility] Oskar RV Sensing Blanking Period (ms) 200 ms [facility] Oskar RV Sensing Polarity BI [facility] Detection Configuration (Vent) 1 - Zone [facility] FastVT_Detection Interval Blank [facility] ICD ATAF DetectionInterval ms 350 ms [facility] ICD ATAF DetectionStatus ENABLED [facility] ICD FastVT DetectionStatus DISABLED [facility] ICD-ADLRATE_BPM 95 {beats}/min [facility] ICD-AMS EPISODES 171 {beats}/min [facility] ICD-ATP Episodes (Vent) 0 [facility] ICD-ATRIALFIBRILLATION 0 [facility] ICD-Counters Cleared Date 01/06/2017 [facility] ICD-Device Mfg MDT [facility] ICD-Fast Ventricular Tachycardia 1 [facility] ICD-Hysteresis Rate DISABLED [facility] ICD-LEADIMPEDANCEATRIA L 456 ohm [facility] ICD-Percent Pacing (Atrial) 97.46 % [facility] ICD-Percent Pacing (Vent) 0.08 % [facility] ICD-PMT Intervention ENABLED [facility] ICD-PVC Intervention ENABLED [facility] ICD-Rate Modulation Acceleration Reaction 15 s [facility] ICD-Rate Modulation Deceleration Exercise [facility] ICD-Rate Modulation [place]alloway 4 [facility] ICD-Rate Modulation Threshold MediumLow [facility] ICD-Rhythm No RA intrinsic with intact AV conduction following AP [facility] ICD-Shocks Aborted (Vent) 0 [facility] [id number] 0 [facility] ICD-SHOCKSABORTED 0 [facility] ICD-SHOCKSDELIVEREDVEN TRICULAR 0 [facility] ICD-Ventricular Fibrillation 0 [facility] Lead Impedance (RV) [address] [facility] Lead Impedance High Voltage 79 ohm [facility] Lead1 Mfg MDT [facility] Lead2 Mfg MDT [facility] Location RA [facility] Location RV [facility] Lower Rate (bpm) 60 {beats}/min [facility] Max Sensor Rate (bpm) 120 {beats}/min [facility] MDT_PROG_TACHY_ZONE_DE TECTIONS_STATUS ENABLED [facility] Model [id number] Evera MRI XT [facility] Model 5076 CapSureFix Novus [facility] Model 6935M [employer] Quattro Secure S [facility] Pacemaker Dependent? YES [facility] Serial Number [id number] [facility] Serial Number [id number] [facility] Serial Number [id number] [facility] Test Charge Energy [facility] Test Charge Time 3.883 [facility] Therapy Status (Vent) Enabled [facility] Thresh RA Capture Amplitude (volts) 1 V [facility] Thresh RA Capture Duration (ms) 0.4 ms [facility] Thresh RA Sensing Amplitude (mvolts) 1.375 mV [facility] Thresh RV Capture Amplitude (VOLTS) 0.5 V [facility] Thresh RV Capture Duration (MS) 0.4 ms [facility] Thresh RV Sensing Amplitude (MVOLTS) 10.4 mV [facility] Tracking Rate (bpm) 130 {beats}/min [facility] VF Zone Detection Interval 340 ms [facility] VF Zone Therapy Configuration 2 ATP(s) + 4 Shock(s) [facility] No Panel Informationon 11-01 BLANK _ [facility] ICD-Fast Ventricular Tachycardia 0 [facility] Implant Date 01/06/2017 [facility] CORONAVIRUS 19, CECILIA SENDOUTo n 03-13-2020 COVID-19,CECILIA Not Detected Normal Not Detected [facility] Comment on above: Result Comment: This test was developed and its performance characteristics determined by [employer]. This test has not been FDA cleared or approved. This test has been authorized by FDA under an Emergency Use Authorization (EUA). This test is only authorized for the duration of time the declaration that circumstances exist justifying the authorization of the emergency use of in vitro diagnostic tests for detection of SARS-CoV-2 virus and/or diagnosis of COVID-19 infection under section 564(b)(1) of the Act, 21 U.S.C. 360bbb-3(b)(1), unless the authorization is terminated or revoked sooner. When diagnostic testing is negative, the possibility of a false negative result should be considered in the context of a patient's recent exposures and the presence of clinical signs and symptoms consistent with COVID-19. An individual without symptoms of COVID-19 and who is not shedding SARS-CoV-2 virus would expect to have a negative (not detected) result in this assay. Performed By: #### L 3400.2408 #### [facility] (refer to report for specific site) refer to report for address and phone number Basic Metabolic Profile (BMP )on 09-07-2019 Calcium [Mass/Vol] 9.7 mg/dL Normal 8.5-10.1 [facility] Comment on above: Performed By: #### L 500.2500, L501.4010 #### [facility] [address] [place], [address] Chloride [Moles/Vol] 104 mmol/L Normal 98-107 [facility] Comment on above: Performed By: #### L 500.2500, L501.4010 #### [facility] [address] [place], [address] CO2 [Moles/Vol] 32.0 mmol/L Normal 21.0-32.0 [facility] Comment on above: Performed By: #### L 500.2500, L501.4010 #### [facility] [address] [place], [address] Creatinine [Mass/Vol] 1.00 mg/dL Normal 0.55-1.02 [facility] Comment on above: Result Comment: The validity of the calculated GFR AND GFRAA in patients over 70 years has not been determined. Clinical correlation is essential. Performed By: #### L 500.2500, L501.4010 #### [facility] [address] [place], [address] EST GFR - AA 73 mL/min Normal >60 [facility] Comment on above: Result Comment: Afri can Iraqi GFR Calc Performed By: #### L 500.2500, L501.4010 #### [facility] [address] [place], [address] Estimated CRCL 54.51 ml/min Normal [facility] Comment on above: Performed By: #### L 500.2500, L501.4010 #### [facility] [address] [place], [address] GAP 5 Normal 5-15 [facility] Comment on above: Performed By: #### L 500.2500, L501.4010 #### [facility] [address] [place], [address] GFR/1.73 sq M predicted among non-blacks MDRD (S/P/Bld) [Vol rate/Area] 60 mL/min/{1.73_m2} Normal >60 [facility] Comment on above: Result Comment: Non- GFR Calc Performed By: #### L 500.2500, L501.4010 #### [facility] [address] [place], [address] Glucose [Mass/Vol] 96 mg/dL Normal 74-106 [facility] Comment on above: Result Comment: Anastasia bishop note revised GLUCOSE reference range effective 2017. Performed By: #### L 500.2500, L501.4010 #### [facility] [address] [place], [address] Potassium [Moles/Vol] 4.3 mmol/L Normal 3.5-5.1 [facility] Comment on above: Performed By: #### L 500.2500, L501.4010 #### [facility] [address] [place], [address] Sodium [Moles/Vol] 141 mmol/L Normal 136-145 [facility] Comment on above: Performed By: #### L 500.2500, L501.4010 #### [facility] [address] [place], [address] Urea nitrogen [Mass/Vol] 20 mg/dL High 7-18 [facility] Comment on above: Performed By: #### L 500.2500, L501.4010 #### [facility] [address] [place], [address] Urea nitrogen [Mass/Vol] 20.0 RATIO Normal 10-20 [facility] Comment on above: Performed By: #### L 500.2500, L501.4010 #### [facility] [address] [place], [address] CBC W/Diff, Automatedon 02-0 -2019 Absolute Neut 2.6 X10 3/uL Normal 2.0-7.7 [facility] Comment on above: Performed By: #### L 100.0100 #### [facility] [address] [place], [address] Basophils/100 WBC (Bld) 0.5 % Normal 0-1 [facility] Comment on above: Performed By: #### L 100.0100 #### [facility] [address] [place], [address] Eosinophils/100 WBC (Bld) 0.9 % Normal 0-5 [facility] Comment on above: Performed By: #### L 100.0100 #### [facility] [address] [place], [address] Erythrocyte distribution width (RBC) [Ratio] 13.6 % Normal 11.6-14.6 [facility] Comment on above: Performed By: #### L 100.0100 #### [facility] [address] [place], [address] Hematocrit (Bld) [Volume fraction] 42.2 % Normal 37-47 [facility] Comment on above: Performed By: #### L 100.0100 #### [facility] [address] [place], [address] Hemoglobin (Bld) [Mass/Vol] 13.4 g/dL Normal 12.0-15.0 [facility] Comment on above: Performed By: #### L 100.0100 #### [facility] [address] [place], [address] IM GRAN % 0.200 % Normal 0.0-0.9 [facility] Comment on above: Result Comment: IG% - Immature Granulocytes (promyelocytes, myelocytes and metamyelocytes) > 1% indicates that a LEFT SHIFT is Present. Performed By: #### L 100.0100 #### [facility] [address] [place], [address] Lymphocytes (Bld) [#/Vol] 1.24 X10 3/uL Normal 0.83-4.51 [facility] Comment on above: Performed By: #### L 100.0100 #### [facility] [address] [place], [address] Lymphocytes/100 WBC (Bld) 29.2 % Normal 19-41 [facility] Comment on above: Performed By: #### L 100.0100 #### [facility] [address] [place], [address] MCH (RBC) [Entitic mass] 28.7 pg Normal 27.0-32.0 [facility] Comment on above: Performed By: #### L 100.0100 #### [facility] [address] [place], [address] MCHC (RBC) [Mass/Vol] 31.8 g/dL Low 32-36 [facility] Comment on above: Performed By: #### L 100.0100 #### [facility] [address] [place], [address] MCV (RBC) [Entitic vol] 90.4 fL Normal 81-99 [facility] Comment on above: Performed By: #### L 100.0100 #### [facility] [address] [place], [address] Monocytes/100 WBC (Bld) 9.0 % Normal 0-10 [facility] Comment on above: Performed By: #### L 100.0100 #### [facility] [address] [place], [address] Neutrophils/100 WBC (Bld) 60.2 % Normal 47-70 [facility] Comment on above: Performed By: #### L 100.0100 #### [facility] [address] [place], [address] NRBC, FLAGGED 0 % Normal 0-5 [facility] Comment on above: Performed By: #### L 100.0100 #### [facility] [address] [place], [address] Platelet mean volume (Bld) [Entitic vol] 11.1 fL Normal 6.2-12.0 [facility] Comment on above: Performed By: #### L 100.0100 #### [facility] [address] [place], [address] Platelets (Bld) [#/Vol] 150 10*3/uL Normal 150-450 [facility] Comment on above: Performed By: #### L 100.0100 #### [facility] [address] [place], [address] RBC (Bld) [#/Vol] 4.67 M/mm3 Normal 4.2-5.4 [facility] Comment on above: Performed By: #### L 100.0100 #### [facility] [address] [place], [address] RDW SD 44.9 fl High 35.1-43.9 [facility] Comment on above: Performed By: #### L 100.0100 #### [facility] [address] [place], [address] WBC (Bld) [#/Vol] 4.2 10*3/uL Low 4.4-11.0 [facility] Comment on above: Performed By: #### L 100.0100 #### [facility] [address] [place], [address] Chest 1 View (Portable)on Chest 1 View (Portable) [facility] Imaging Services [address] [place] [address] Chest 1 View (Portable) MR#: [id number] Acct: [id number] Name: CHRIS RICARDO Mehdi Rep #: [id number] : 1960 F 59 From: Malachi Gonzalez MD PCP: Alton Eisenberg MD Status: REG ER Study: Chest 1 View (Portable) Date of Exam: 09/07/19 Exam# [id number] Ordering Dr: Shea Douglass DO STUDY: X-RAY CHEST REASON FOR EXAM: Female, 59 years old. PATIENT COMPLAINS OF DIZZINESS, LIGHTHEADEDNESS, SOB, AND CHEST PAIN EARLIER THIS AM, DENIES CP AT TH IS TIME. TECHNIQUE: Single AP portable view of the chest. COMPARISON: Comparison is made with prior study dated January 27, 2018. FINDINGS: Hyperinflation. The lungs are clear. There is no demonstrated pleural abnormality. Normal size heart. A left-sided dual-chamber pacemaker is seen. Normal mediastinum and aaron. Normal visualized pulmonary arteries. Normal visualized aortic arch and descending thoracic aorta. There are degenerative changes of the visualized thoracic spine. Normal visualized ribs, clavicles, and shoulders. There is no demonstrated abnormality of the visualized soft tissue structures of the upper abdomen. RAD/Chest 1 View (Portable) IMPRESSION: Hyperinflation. No acute abnormality is seen. Electronically Signed: Malachi Ottomarcocholo, at 11:55 EST , Service support , CC: Alton Eisenberg MD; Shea Douglass DO Oracle Reports Developer: Signed Normal [facility] Discharge Instructionon Discharge Instruction [facility] Medical Records Department [address] [place] [address] Discharge Instruction 09/07/19 1408 MR#: [id number] Acct: [id number] Name: CHRIS RICARDO Rep #: [id number] : 1960 59 From: Shea Douglass DO PCP: Alton Eisenberg MD Status: REG ER ED Disposition - Plan for ED Patient: Instructions: DIZZINESS, Unk Cause Referrals: Alton Eisenberg MD [Primary Care Provider] - 3-5 Days What to do if you have Problems For any increased pain, shortness of breath, bleeding, nausea or vomiting, chest pain, or any unexpected problems, contact your Primary Care Provider. Call [facility] ([phone]) or report to the closest Emergency Room. Call 911 if necessary. 09/07/19 1409 Date Shea Douglass DO Cosigner Signature (If Indicated): Date CC: Alton Eisenberg MD Normal [facility] Emergency Department Summary on 09-07-2019 Emergency Department Summary [facility] Medical Records Department [address] [place] [address] Emergency Department Summary 09/07/19 1405 MR#: [id number] Acct: [id number] Name: CHRIS RICARDO Rep #: [id number] : 1960 59 From: Shea Douglass DO PCP: Alton Eisenberg MD Status: REG ER - ER Visit Summary Date of Service: 09/07/19 Chief Complaint: [Dizziness] History of Present Illness: The patient is a 59 F [presents to the ER with complaint of dizziness that started today. Patient states that she walked about 2-1/2 miles today and had episode of lightheadedness associated with it. Since that time she had intermittent episodes of lightheadedness whether she is sitting or standing. 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 Patient had a cardiac arrest in 2017. Patient has a pacer defibrillator in place. She has had a cold recently but she states she feels like she is getting over it. Patient denies any chest pain. She is had no syncopal episodes. The defibrillator has not discharged.] Patient had heart catheterization in 2017 that showed no abnormalities. Physical Examination: [HEENT-PERRLA, EOMI. Cranial nerves II through XII grossly intact. TMs clear. Mucous membranes moist. No adenopathy. Cardiovascular-regula r rate and rhythm without murmur or ectopy Lungs-clear to auscultation, chest wall stable without crepitus or subcu emphysema Abdomen-normoactive bowel sounds, soft, nontender, no rebound or rigidity, no peritoneal signs. Extremities-intact 4, normal range of motion, normal pulses, atraumatic] Test Results: [EKG obtained arrival showed a atrially paced rhythm with a ventricular rate of 62 bpm with no acute ST segment changes. CBC with differential was unremarkable. Chemistries unremarkable. Troponin was less than 0.015. Orthostatic vital signs were negative. Chest x-ray showed nothing acute.] Emergency Department Course and Treatment: [Patient had the pacer defibrillator interrogated and I discussed case with the tech who noted some episodes of nonsustained V. tach 5 episodes since May of last year. None within the last 24 hours. The last episode was September 04. It did not believe that any abnormal rhythms can be attributed to patient's symptomatology today.] Treatment Plan: [Follow-up with primary care physician in 3 to 5 days. Patient advised to push fluids and rest today.] Disposition: [Discharged home in stable condition] Impression: [Dizziness-etiology uncertain] This note was generated with [employer] dictation software. It may contain incorrect words, spelling, and punctuation that were not noted in review of the chart prior to signing ED Disposition - Plan for ED Patient: Referrals: Alton Eisenberg MD [Primary Care Provider] - What to do if you have Problems For any increased pain, shortness of breath, bleeding, nausea or vomiting, chest pain, or any unexpected problems, contact your Primary Care Provider. Call [facility] ([phone]) or report to the closest Emergency Room. Call 911 if necessary. 09/07/19 1408 Date Remus Ungthu DO Cosigner Signature (If Indicated): Date CC: Alton Eisenberg MD Normal [facility] Troponin-Ion 09-07-2019 Troponin I.cardiac [Mass/Vol] ng/mL Normal <0.045 [facility] Comment on above: Result Comment: TROP ONIN-I EXPECTED VALUES <0.045 Negative 0.045 - 0.590 Consistent with Cardiac Damage > OR = 0.600 Critical Value Not every elevated troponin is indicative of MN. These values should be used with clinical judgement in examining the patient's clinical picture for diagnosis. To establish a diagnosis of MN versus myocardial injury, there must be a demonstrated rise and/or fall in the troponin values, in addition to ischemic symptoms, EKG changes, new regional wall motion abnormality, and/or angiographical evidence. PLEASE NOTE: REFERENCE RANGES EDITED 17 Performed By: #### L 500.2500, L501.4010 #### [facility] [address] [place], [address] ALLIED HEALTHon 05-21-2019 ALLIED HEALTH HNO ID: [id number] Author: ISA Ruiz (Ct) Service: ? Author Type: Clinical Animal Impersonator Type: [facility] Filed: 05/21/2019 3:56 PM Note Text: Radiology Service Progress Note PATIENT NAME: Chris Ricardo DATE OF SERVICE: May 21, 2019 TIME: 3:56 PM PATIENT IDENTITY VERIFICATION COMPLETED USING TWO (2) METHODS: Name and Date of confirmed by patient verbally. PATIENT GENDER DATA: Female. status: : No status: NO. PATIENT RELEVANT IMPLANT DATA REVIEWED: Not Applicable RADIOLOGY DEPARTMENT: General X-ray: Exam(s) Completed: Chest X-Ray PERIPHERAL IV DATA: Not applicable SIGNED BY: ISA Ruiz May 21, 2019 3:56 PM Normal [facility] CBC and Differentialon 05-21 Abs Baso <0.03 Normal <0.11 [facility] Comment on above: Performed By: #### C BCDIF, CMP, MG1 #### [facility] [address] [facility] [phone] Abs [place] 0.46 k/uL Normal <0.87 [facility] Comment on above: Performed By: #### C BCDIF, CMP, MG1 #### [facility] [address] [facility] [phone] Abs Neut 2.14 k/uL Normal 1.45-7.50 [facility] Comment on above: Performed By: #### C BCDIF, CMP, MG1 #### [facility] [address] [facility] [phone] Basophils/100 WBC (Bld) 0.5 % Normal [facility] Comment on above: Performed By: #### C BCDIF, CMP, MG1 #### [facility] [address] [facility] [phone] Eosinophils (Bld) [#/Vol] 0.04 10*3/uL Normal <0.46 [facility] Comment on above: Performed By: #### C BCDIF, CMP, MG1 #### [facility] [address] [facility] [phone] Eosinophils/100 WBC (Bld) 0.9 % Normal [facility] Comment on above: Performed By: #### C BCDIF, CMP, MG1 #### [facility] [address] [facility] [phone] Erythrocyte distribution width (RBC) [Ratio] 13.1 % Normal 11.5-15.0 [facility] Comment on above: Performed By: #### C BCDIF, CMP, MG1 #### [facility] [address] [facility] [phone] Hematocrit (Bld) [Volume fraction] 39.7 % Normal 36.0-46.0 [facility] Comment on above: Performed By: #### C BCDIF, CMP, MG1 #### [facility] [address] [place] [address] Hemoglobin (Bld) [Mass/Vol] 12.7 g/dL Normal 11.5-15.5 [facility] Comment on above: Performed By: #### C BCDIF, CMP, MG1 #### [facility] [address] [place] [address] Lymphocytes (Bld) [#/Vol] 1.58 10*3/uL Normal 1.00-4.00 [facility] Comment on above: Performed By: #### C BCDIF, CMP, MG1 #### [facility] [address] [place] [address] Lymphocytes/100 WBC (Bld) 37.3 % Normal [facility] Comment on above: Performed By: #### C BCDIF, CMP, MG1 #### [facility] [address] [place] [phone] MCH (RBC) [Entitic mass] 28.8 pG Normal 26.0-34.0 [facility] Comment on above: Performed By: #### C BCDIF CMP, MG1 #### [facility] [address] [facility] [phone] MCHC (RBC) [Mass/Vol] 32.0 g/dL Normal 30.5-36.0 [facility] Comment on above: Performed By: #### C BCDIF, CMP, MG1 #### [facility] [address] MCV (RBC) [Entitic vol] 90.0 fL Normal 80.0-100.0 [facility] Comment on above: Performed By: #### C BCDIF CMP, MG1 #### [facility] [address] [place] [phone] Monocytes/100 WBC (Bld) 10.8 % Normal [facility] Comment on above: Performed By: #### C BCDIF, CMP, MG1 #### [facility] [address] [phone] Neutrophils/100 WBC (Bld) 50.5 % Normal [facility] Comment on above: Performed By: #### C BCDIF, CMP, MG1 #### [facility] [address] [place], [place] [address] Platelet mean volume (Bld) [Entitic vol] 11.5 fL Normal 9.0-12.7 [facility] Comment on above: Performed By: #### C BCDIF, CMP, MG1 #### [facility] [address] [phone] Platelets (Bld) [#/Vol] 134 10*3/uL Low 150-400 [facility] Comment on above: Performed By: #### C BCDIF, CMP, MG1 #### [facility] [address] [phone] RBC (Bld) [#/Vol] 4.41 10*6/uL Normal 3.90-5.20 [facility] Comment on above: Performed By: #### C BCDIF, CMP, MG1 #### [facility] [address] [address] WBC (Bld) [#/Vol] 4.24 10*3/uL Normal 3.70-11.00 [facility] Comment on above: Performed By: #### C BCDIF, CMP, MG1 #### [facility] [address] [place] [address] Comp Metabolic Panelon 05-21 Albumin [Mass/Vol] 4.4 g/dL Normal 3.9-4.9 [facility] Comment on above: Performed By: #### C BCDIF, CMP, MG1 #### [facility] [address] [place] [address] ALP [Catalytic activity/Vol] 69 U/L Normal 34-123 [facility] Comment on above: Performed By: #### C BCDIF, CMP, MG1 #### [facility] [address] [place] [address] ALT [Catalytic activity/Vol] 13 U/L Normal 7-38 [facility] Comment on above: Performed By: #### C BCDIF, CMP, MG1 #### [facility] [address] [place] [address] Anion gap [Moles/Vol] 8 mmol/L Low 9-18 [facility] Comment on above: Performed By: #### C BCDIF, CMP, MG1 #### [facility] [address] [place] [address] AST [Catalytic activity/Vol] 19 U/L Normal 13-35 [facility] Comment on above: Performed By: #### C BCDIF, CMP, MG1 #### [facility] [address] [place], [place] [phone] Bilirubin [Mass/Vol] 0.2 mg/dL Normal 0.2-1.3 [facility] Comment on above: Performed By: #### C BCDIF, CMP, MG1 #### [facility] [address] [place], [place] [address] Calcium [Mass/Vol] 10.0 mg/dL Normal 8.5-10.2 [facility] Comment on above: Performed By: #### C BCDIF, CMP, MG1 #### [facility] [address] [place] [phone] Chloride [Moles/Vol] 103 mmol/L Normal 97-105 [facility] Comment on above: Performed By: #### C BCASA GUALLPA, MG1 #### [facility] [address] [facility] [phone] CO2 [Moles/Vol] 32 mmol/L High 22-30 [facility] Comment on above: Performed By: #### C BCBREEFASA, MG1 #### [facility] [address] [facility] [phone] Creatinine [Mass/Vol] 0.82 mg/dL Normal 0.58-0.96 [facility] Comment on above: Performed By: #### C ASA VARGAS, MG1 #### [facility] [address] [place] [phone] eGFR- Amer. >60 Normal [facility] Comment on above: Performed By: #### C ASA VARGAS, MG1 #### [facility] [address] [phone] GFR/1.73 sq M predicted among non-blacks MDRD (S/P/Bld) [Vol rate/Area] mL/min/{1.73_m2} Normal [facility] Comment on above: Result Comment: eGFR (Estimated GFR) Units of measure: mL/min/1.73 meters squared eGFR is derived from the reexpressed MDRD Study equation using the following parameters: serum creatinine, age, gender and race. The creatinine assay has been calibrated to be traceable to IDMS. An eGFR <60 mL/min/1.73m2 for >3 months is consistent with chronic kidney disease. Refer to KDOQI guidelines for clinical interpretation. In patients with unstable renal function, e.g. those with acute kidney injury, the eGFR may not accurately reflect actual GFR. Performed By: #### C BCBREEFASA, MG1 #### [facility] [address] [facility] [phone] Glucose [Mass/Vol] 92 mg/dL Normal 74-99 [facility] Comment on above: Result Comment: The [place] Diabetes Association (ADA) provides guidance for cutoff values for fasting glucose and random glucose. The ADA defines fasting as no caloric intake for at least 8 hours. Fasting plasma glucose results between 100 to 125 mg/dL indicate increased risk for diabetes (prediabetes). Fasting plasma glucose results greater than or equal to 126 mg/dL meet the criteria for diagnosis of diabetes. In the absence of unequivocal hyperglycemia, results should be confirmed by repeat testing. In a patient with classic symptoms of hyperglycemia or hyperglycemic crisis, random plasma glucose results greater than or equal to 200 mg/dL meet the criteria for diagnosis of diabetes. Reference: Standards of Medical Care in Diabetes 2016, [place] [employer] Association. Diabetes Care. 2016.39(Suppl 1). Performed By: #### C BCDIF, CMP, MG1 #### [facility] [address] [phone] Potassium [Moles/Vol] 4.1 mmol/L Normal 3.7-5.1 [facility] Comment on above: Performed By: #### C BCDIF, CMP, MG1 #### [facility] [address] [place] [address] Protein [Mass/Vol] 6.6 g/dL Normal 6.3-8.0 [facility] Comment on above: Performed By: #### C BCDIF, CMP, MG1 #### [facility] [address] [place], [place] [phone] Sodium [Moles/Vol] 143 mmol/L Normal 136-144 [facility] Comment on above: Performed By: #### C BCDIF, CMP, MG1 #### [facility] [address] [place], [place] [address] Urea nitrogen [Mass/Vol] 22 mg/dL High 7-21 [facility] Comment on above: Performed By: #### C BCDIF, CMP, MG1 #### [facility] [address] [place], [place] [address] ECG COMPLETEon 05-21-2019 ECG COMPLETE NAME : CHRIS RICARDO PID : [id number] 1960 Gender : Female Race : ORD : [id number] Procedure Date : May 21 2019 14:44:43 Edit Date : May 22 2019 14:43:11 Diagnosis:Atrial-pace d rhythm LOW VOLTAGE QRS ABNORMAL ECG 1446 Confirmed by DO CHIU MICHELLE ([id number]), metropolitan editor Rosalee Galarza ([id number]) on 05/22/2019 2:43:09 PM Ventricular Rate : 60 BPM Atrial Rate : 60 BPM P-R Interval : 194 ms QRS Duration : 62 ms Q-T Interval : 422 ms QTC Calculation(Bazett) : 422 ms P Shubuta : 12 degrees R Shubuta : 26 degrees T Shubuta : 23 degrees Test Reason : Chest Pain Location : 1 : ER 2 Overread By : DO CHIU MICHELLE Edited By : Rosalee Galarza Referred By : , Acquired by : , [facility] ED NOTEon 05-21-2019 ED NOTE HNO ID: [id number] Author: Arlette JonesRn) JESSIKA Breen Service: ? Author Type: Registered Nurse Type: ED Notes Filed: 05/21/2019 2:24 PM Note Text: Patient presents to ED with intermittent chest pain [facility] ED PROV NOTEon 05-21-2019 ED PROV NOTE HNO ID: [id number] Author: Alyce Chiu DO Service: Emergency Medicine Author Type: Physician Type: ED Provider Notes Filed: 05/21/2019 8:57 PM Note Text: ED Provider Note Patient Name: Chris Ricardo SERVICE DATE: 05/21/19 History Patient presents with: Chest Pain 59 year old female h/o arrhythmogenic cardiomyopathy s/p pacemaker/defibrillat or sense ED complaining of chest pain. Patient reports a rhythmic left-sided chest pain today for the past 2 hours. Sinuses without beat, sharp pain, does not radiate. No shortness of breath, numbness, dizziness, lightheadedness. Denies nausea, vomiting, cough, recent illness. She denies any irregular beats or shocks from the pacemaker however she feels it is lower in her chest than normal and there is a larger gap between the pacemaker and her clavicle. History provided by: Patient and medical records PAST MEDICAL HISTORY Diagnosis Date - Abnormal mole - Arrhythmogenic right ventricular cardiomyopathy (HCC) 01/14/2017 Cardiomyopathy. Has a pace maker/defibulator. Is limited to what exercising she can do. - Benign neoplasm of colon 04/16/2010 Tubular adenoma 04/16/12 - Chronic left shoulder pain 05/28/2018 - Depression with anxiety 07/09/2017 Situational, Managed by Counseling. - Diffuse cystic mastopathy - Family history of breast cancer 07/04/2016 - Family history of malignant neoplasm of breast 05/07/2007 2 maternal aunts - Insomnia, unspecified - Left shoulder pain 03/11/2011 - Low testosterone level in female 2010 - Mixed hyperlipidemia 2005 was on simvastatin, was able to come off med. - Osteopenia ++FHx osteoporosis - Personal history of colonic polyps 04/21/2013 tubular adenoma. - Plantar fasciitis of left foot 08/27/2017 - Plantar fasciitis of right foot 07/18/2016 - Presence of combination internal cardiac defibrillator (ICD) and pacemaker 01/14/2017 - Ptosis, left eyelid benign - PTSD (post-traumatic stress disorder) 08/13/2018 - Unspecified closed fracture of ankle 2000 Ankle fracture left [place], [place] - Urge incontinence PAST SURGICAL HISTORY Procedure Laterality Date - APPENDECTOMY 1970 [place], [place] - BLEPHAROPLASTY, UPPER EYELID Left 2016 - BREAST BIOPSY 2006 left breast ([facility]) - CARDIAC CATH 01/05/2017 normal - COLONOS W/REM POLYP SNARE 04/16/10 tubular adenoma at 70cm - COLONOSCOPY 04/27/13 normal, repeat in 5 yrs d/t pers hx polyps and poss fam hx gi malignancy - COLONOSCOPY 05/04/2018 repeat 10 yrs, Dr. Hatfield - [facility], DIAG AND/OR THERAPEUTIC 09/2008 Dilation AND curettage, Uterine Ablation with Novasure - LEAD,PACEMAKER/DEFIB COMBO 01/06/2017 - NOVASURE 09/2008 - PRK Bilateral 01/2002 in [place] - RADIOFREQUENCY ABLATION 01/03/2017 - REMOVAL OF TONSILS,<12 Y/O 1970 [place]illectomy [place], [place] FAMILY HISTORY Problem Relation Age of Onset - Hypertension Mother dx age 30's - Headache Mother - Osteoporosis Mother - Cataract Mother - Lipids Mother - Alzheimer's Disease Father first symptoms around 70 - Diabetes Father late 70's - Hypertension Father - Lipids Father - Arthritis Father - Cataract Father - Diabetes Paternal Grandmother - other (Abdominal Aortic Aneurysm) Maternal Grandmother - Cancer Paternal Grandfather unknown - Breast Cancer Maternal Aunt x2 - Colon Cancer Other none - other (Abdominal Aortic Aneurysm) Maternal Uncle - other (Abdominal Aortic Aneurysm) Maternal Aunt x2 - Osteoporosis Maternal Aunt - Osteoporosis Maternal Aunt - Osteoporosis Maternal Aunt - Osteoporosis Maternal Aunt - Osteoporosis Maternal Uncle - Osteoporosis Maternal Uncle - Osteoporosis Maternal Uncle - Osteoporosis Maternal Uncle Social History Tobacco Use - Smoking status: Former Smoker Packs/day: 0.50 Years: 10.00 Pack years: 5.00 Types: Cigarettes Last attempt to quit: 08/04/1988 Years since quittin.8 - Smokeless tobacco: Never Used Substance and Sexual Activity - Alcohol use: No - Drug use: No - Sexual activity: Yes Partners: Male control/protection: Vasectomy Comment: novasure ALLERGIES No Known Allergies Review of Systems Constitutional: Negative for chills and fever. Respiratory: Negative for cough and shortness of breath. Cardiovascular: Positive for chest pain. Gastrointestinal: Negative. Musculoskeletal: Negative. Skin: Negative. Neurological: Negative. Hematological: Negative. Psychiatric/Behaviora l: Negative. Physical Exam BP 115/67 Pulse 60 Temp (Src) 98.5 (Oral) Resp 16 Wt 144 lb (65.3kg) SpO2 98% O2 Therapy: Room Air Physical Exam Constitutional: She is oriented to person, place, and time. She appears well-developed and well-nourished. HENT: Head: Normocephalic and atraumatic. Eyes: Pupils are equal, round, and reactive to light. Conjunctivae and EOM are normal. Neck: Normal range of motion. Cardiovascular: Normal rate, regular rhythm, normal heart sounds and intact distal pulses. Pulmonary/Chest: Effort normal and breath sounds normal. Left sided icd in place, no overlying erythema. Abdominal: Soft. There is no tenderness. Musculoskeletal: She exhibits no edema. Neurological: She is alert and oriented to person, place, and time. Skin: Skin is warm and dry. Nursing note and vitals reviewed. Chest Pain Pathway History of Present Symptoms: Low Risk ECG Findings: Non Ischemic ECG Number of Risk Factors: 2 Initial High Sensitivity Troponin: <12 ng/l Delta Troponin: <3 ng/l Chest pain risk stratification: 3 Based on the above information, patient is at very low risk for a Major Adverse Cardiac Event at 30 days Diagnostic Testing ED Labs Ordered and Reviewed CBC + DIFF - Abnormal; Notable for the following components: Result Value Ref Range Platelet Count 134 (*) 150 - 400 k/uL All other components within normal limits COMP METABOLIC PANEL - Abnormal; Notable for the following components: BUN 22 (*) 7 - 21 mg/dL CO2 32 (*) 22 - 30 mmol/L Anion Gap 8 (*) 9 - 18 mmol/L All other components within normal limits NT PRO BNP - Abnormal; Notable for the following components: NT Pro BNP 145 (*) <125 pg/mL All other components within normal limits MAGNESIUM BLD HIGH SENSITIVITY TROPONIN T HIGH SENSITIVITY TROPONIN T TSH BLD XR CHEST 2V FRONTAL/LAT Final Result IMPRESSION: No acute radiographic abnormality. Oracle Reports Developer: KATHY Transcribe Date/Time: May 21 2019 3:55P Dictated by : CARLEY MONTERO MD This examination was interpreted and the report reviewed and electronically signed by: CARLEY MONTERO MD on May 21 2019 3:56PM EST Procedures ED Course / Clinical Impression Clinical Impressions as of May 21 1645 Chest pain, unspecified type MDM / Disposition / Plan Course: 59 year old female presents c/o chest pain. Vital signs were reviewed. Triage records were reviewed. Medical records were reviewed. Nursing notes were reviewed and incorporated. Patient described a rhythmic left-sided chest pain for the past 2 hours. Is also concerned her ICD is appearing lower in her chest. There is no overlying erythema or tenderness. Breath sounds clear bilaterally, no peripheral edema. EKG shows atrial paced rhythm at 60 bpm with no acute ST changes. No leukocytosis or anemia. Electrolytes within normal limits. 2 negative high sensitivity troponins. BNP minimally elevated. Chest x-ray shows no acute process. Pacemaker interrogated, discussed with [employer] employee representative. No irregular beats, leaves are all working appropriately and that her life is good. Discussed with patient. Low risk for mace based on heart score. Safe for discharge home, follow-up with PCP and cardiology. Strict return precautions discussed, she understands and is in agreement with the plan. The patient was DISCHARGED: Counseled patient regarding suspected diagnosis AND need for follow-up. Discharged home with verbal and written instructions. They were instructed to return as needed for persistent or worsening symptoms or any new concerns. Condition at time of disposition: stable SIGNATURE: Amy Ziegler PA-C Attending Note I have personally performed a face to face assessment of the patient and have reviewed the PA/STAFF ASSISTANT note. My todd findings include: History: Chris Ricardo is a 59-year-old female with history of osteopenia depression, anxiety, PTSD, hyperlipidemia, arrhythmogenic right ventricular cardiomyopathy with pacemaker/defibrillat or in place, comes in today for reports of chest pain. States that she's had chest pain today that feels like a rhythmic pain. She states it lasts 3-5 seconds and then resolves. She has no associated symptoms. She states she's never had anything like this before. She had a stress test in March that was normal. She does see Dr. GUTIERREZ is at [facility]. Exam: She is in no distress. Heart is regular rate and rhythm. Lungs are clear to auscultation bilaterally wheezing rhonchi, rales. EKG shows no ischemia. Assessment/Plan: High sensitivity troponins are both 8. This puts her at low risk for Filippo. adverse cardiac event. She is to follow-up with cardiology as an outpatient. Signature: Alyce Chiu, Date: 05/21/2019 Time: 4:16 PM Amy Underwood (Jose A) Karlie 05/21/19 1646 Alyce Chiu, 05/21/[id number] Normal [facility] High Sens Troponin Ton 05-21 High Sensitivity KAREEN 8 ng/L Normal <12 [facility] Comment on above: Result Comment: When assessing risk for acute coronary syndromes: In patients undergoing blood draw greater than or equal to 2 hours from symptom onset, with history of very low to moderate risk and non-ischemic ECG, an initial hs-Troponin T less than 12 ng/L AND a 1 hour delta hs-Troponin T less than 3 ng/L should be considered very low risk for 30 day MACE. Performed By: #### H STNT #### [facility] [address] [place], [place] [id number] High Sensitivity KAREEN 8 ng/L Normal <12 [facility] Comment on above: Result Comment: When assessing risk for acute coronary syndromes: In patients undergoing blood draw greater than or equal to 2 hours from symptom onset, with history of very low to moderate risk and non-ischemic ECG, an initial hs-Troponin T less than 12 ng/L AND a 1 hour delta hs-Troponin T less than 3 ng/L should be considered very low risk for 30 day MACE. Performed By: #### H STNT #### [facility] [address] [place] [address] Magnesiumon 05-21-2019 Magnesium [Mass/Vol] 2.1 mg/dL Normal 1.7-2.3 [facility] Comment on above: Performed By: #### C BCDIF, CMP, MG1 #### [facility] [address] [place] [address] NT Pro BNPon 05-21-2019 PRO B Natr Peptide 145 pg/mL High <125 [facility] Comment on above: Performed By: #### N TBNP #### [facility] [address] [facility] [phone] TSHon 05-21-2019 TSH Qn 1.730 uU/mL Normal 0.400-5.500 [facility] Comment on above: Performed By: #### T SH #### [facility] [address] [facility] [phone] XR CHEST 2V FRONTAL/LATon XR CHEST 2V FRONTAL/LAT * * *Final Report* * * DATE OF EXAM: May 21 2019 3:20PM MDX [id number] - XR CHEST 2V FRONTAL/LAT / PROCEDURE REASON: Chest pain * * * * Physician Interpretation * * * * EXAMINATION: CHEST RADIOGRAPH (2 VIEW FRONTAL and LATERAL) CLINICAL HISTORY: Chest pain MQ: [id number]_5 Comparison: 01/07/2017 RESULT: Lines, tubes, and devices: Cardiac pacing device overlies the left hemithorax. Lungs and pleura: No focal consolidation, pleural effusion or pneumothorax. Cardiomediastinal silhouette: Within normal limits. Other: No acute osseous abnormality. IMPRESSION: No acute radiographic abnormality. Oracle Reports Developer: PSCB Transcribe Date/Time: May 21 2019 3:55P Dictated by : CARLEY MONTERO MD This examination was interpreted and the report reviewed and electronically signed by: CARLEY MONTERO MD on May 21 2019 3:56PM EST [id number] [facility] Vital Signs Date Time Vital Sign Value Performing Clinician Facility 04-07-2025 10:33-0400 Body mass index (BMI) [Ratio] 26.96 kg/m2 Alton Eisenberg MD Work Phone: [facility] 04-07-2025 10:33-0400 Body weight 73.48 kg Alton Eisenberg MD Work Phone: [facility] 04-07-2025 10:33-0400 Diastolic blood pressure 92 mm[Hg] Alton Eisenberg MD Work Phone: [facility] 04-07-2025 10:33-0400 Heart rate 62 /min Alton Eisenberg MD Work Phone: [facility] 04-07-2025 10:33-0400 Respiratory rate 16 /min Alton Eisenberg MD Work Phone: [facility] 04-07-2025 10:33-0400 SaO2% (BldA) [Mass fraction] 99 % Alton Eisenberg MD Work Phone: [facility] Comment on above: 98-99 on RA 04-07-2025 10:33-0400 Systolic blood pressure 116 mm[Hg] Alton Eisenberg MD Work Phone: [facility] 02-08-2025 11:00-0400 Body mass index (BMI) [Ratio] 26.96 kg/m2 Alton Eisenberg MD Work Phone: [facility] 02-08-2025 11:00-0400 Body weight 73.48 kg Alton Eisenberg MD Work Phone: [facility] 02-08-2025 11:00-0400 Diastolic blood pressure 80 mm[Hg] Alton Eisenberg MD Work Phone: [facility] 02-08-2025 11:00-0400 Heart rate 68 /min Alton Eisenberg MD Work Phone: [facility] 02-08-2025 11:00-0400 Respiratory rate 16 /min Alton Eisenberg MD Work Phone: [facility] 02-08-2025 11:00-0400 Systolic blood pressure 106 mm[Hg] Alton Eisenberg MD Work Phone: [facility] 01-07-2025 10:03-0400 Body mass index (BMI) [Ratio] 27.12 kg/m2 Alton Eisenberg MD Work Phone: [facility] 01-07-2025 10:03-0400 Body weight 73.94 kg Alton Eisenberg MD Work Phone: [facility] 01-07-2025 10:03-0400 Diastolic blood pressure 70 mm[Hg] Alton Eisenberg MD Work Phone: [facility] 01-07-2025 10:03-0400 Heart rate 60 /min Alton Eisenberg MD Work Phone: [facility] 01-07-2025 10:03-0400 Respiratory rate 16 /min Alton Eisenberg MD Work Phone: [facility] 01-07-2025 10:03-0400 Systolic blood pressure 108 mm[Hg] Alton Eisenberg MD Work Phone: [facility] 01-03-2025 08:42-0400 Body mass index (BMI) [Ratio] 27.15 kg/m2 Chanel Gardner HOUSEKEEPER.STEWARD[employer] Work Phone: [facility] 01-03-2025 08:42-0400 Body weight 74 kg Chanel Gardner APRN.STEWARD[employer] Work Phone: [facility] 01-03-2025 08:42-0400 Diastolic blood pressure 69 mm[Hg] Chanel Gardner APRN.[employer]EWARD[employer] Work Phone: [facility] 01-03-2025 08:42-0400 Heart rate 64 /min Chanel Gardnre HOUSEKEEPER.[employer]ARD[employer] Work Phone: [facility] 01-03-2025 08:42-0400 Systolic blood pressure 108 mm[Hg] Chanel Gardner APRN.[employer]ARD[employer] Work Phone: [facility] 12-07-2024 08:48-0400 Body mass index (BMI) [Ratio] 27.12 kg/m2 Kelsie Doshi PA-C Work Phone: [facility] 12-07-2024 08:48-0400 Body temperature 97.9 [degF] Kelsie Doshi PA-C Work Phone: [facility] 12-07-2024 08:48-0400 Body weight 73.94 kg Kelsie Doshi PA-C Work Phone: [facility] 12-07-2024 08:48-0400 Diastolic blood pressure 78 mm[Hg] Kelsie Doshi PA-C Work Phone: [facility] 05-06-2025 08:48-0400 Heart rate 58 /min Kelsie Doshi PA-C Work Phone: [facility] 12-07-2024 08:48-0400 Respiratory rate 16 /min Kelsie Doshi PA-C Work Phone: [facility] 12-07-2024 08:48-0400 SaO2% (BldA) [Mass fraction] 99 % Kelsie Doshi PA-C Work Phone: [facility] 12-07-2024 08:48-0400 Systolic blood pressure 120 mm[Hg] Kelsie Doshi PA-C Work Phone: [facility] 11-16-2024 13:11-0400 Body mass index (BMI) [Ratio] 26.96 kg/m2 Alton Eisenberg MD Work Phone: [facility] 11-16-2024 13:11-0400 Body weight 73.48 kg Alton Eisenberg MD Work Phone: [facility] 11-16-2024 13:11-0400 Diastolic blood pressure 74 mm[Hg] Alton Eisenberg MD Work Phone: [facility] 11-16-2024 13:11-0400 Heart rate 62 /min Alton Eisenberg MD Work Phone: [facility] 11-16-2024 13:11-0400 Respiratory rate 16 /min Alton Eisenberg MD Work Phone: [facility] 11-16-2024 13:11-0400 Systolic blood pressure 112 mm[Hg] Alton Eisenberg MD Work Phone: [facility] 11-04-2024 09:46-0400 Body mass index (BMI) [Ratio] 27.11 kg/m2 Saida Farnk APRN.STEWARD[employer] Work Phone: [facility] 11-04-2024 09:46-0400 Body temperature 97.7 [degF] Saida Frank APRN.[employer]ARD[employer] Work Phone: [facility] 11-04-2024 09:46-0400 Body weight 73.9 kg Saida Praisler-Wood HOUSEKEEPER.[employer]ARD[employer] Work Phone: [facility] 11-04-2024 09:46-0400 Diastolic blood pressure 77 mm[Hg] Saida Praisler-Wood HOUSEKEEPER.[employer]ARD[employer] Work Phone: [facility] 11-04-2024 09:46-0400 Heart rate 86 /min Saida Praisler-Wood HOUSEKEEPER.[employer] Work Phone: [facility] 11-04-2024 09:46-0400 Respiratory rate 18 /min Saida Praisler-Wood HOUSEKEEPER.[employer] Work Phone: [facility] 11-04-2024 09:46-0400 SaO2% (BldA) [Mass fraction] 98 % Saida Praisler-Wood HOUSEKEEPER.[employer] Work Phone: [facility] 11-04-2024 09:46-0400 Systolic blood pressure 108 mm[Hg] Saida Praisler-Wood HOUSEKEEPER.[employer] Work Phone: [facility] 08-11-2024 12:02-0500 Body height 165.1 cm Clarissa Courson DO Work Phone: [facility] 08-11-2024 12:02-0500 Body mass index (BMI) [Ratio] 26.13 kg/m2 Clarissa Courson DO Work Phone: [facility] 08-11-2024 12:02-0500 Body weight 71.22 kg Clarissa Courson DO Work Phone: [facility] 08-11-2024 12:02-0500 Diastolic blood pressure 79 mm[Hg] Clarissa Courson DO Work Phone: [facility] 08-11-2024 12:02-0500 Heart rate 83 /min Clarissa Courson DO Work Phone: [facility] 08-11-2024 12:02-0500 Systolic blood pressure 117 mm[Hg] Clarissa Courson DO Work Phone: [facility] 06-22-2024 08:26-0500 Body mass index (BMI) [Ratio] 26.66 kg/m2 Kelsie Doshi PA-C Work Phone: [facility] 06-22-2024 08:26-0500 Body temperature 97.39 [degF] Kelsie Doshi PA-C Work Phone: [facility] 06-22-2024 08:26-0500 Body weight 72.12 kg Kelsie Doshi PA-C Work Phone: [facility] 06-22-2024 08:26-0500 Diastolic blood pressure 70 mm[Hg] Kelsie Doshi PA-C Work Phone: [facility] 06-22-2024 08:26-0500 Heart rate 70 /min Kelsie Doshi PA-C Work Phone: [facility] 06-22-2024 08:26-0500 Respiratory rate 16 /min Kelsie Doshi PA-C Work Phone: [facility] 06-22-2024 08:26-0500 SaO2% (BldA) [Mass fraction] 99 % Kelsie Doshi PA-C Work Phone: [facility] 06-22-2024 08:26-0500 Systolic blood pressure 112 mm[Hg] Kelsie Doshi PA-C Work Phone: [facility] 06-08-2024 11:27-0500 Body mass index (BMI) [Ratio] 26.66 kg/m2 Kelsie Doshi PA-C Work Phone: [facility] 06-08-2024 11:27-0500 Body temperature 98.01 [degF] Kelsie Doshi PA-C Work Phone: [facility] 06-08-2024 11:27-0500 Body weight 72.12 kg Kelsie Doshi PA-C Work Phone: [facility] 06-08-2024 11:27-0500 Diastolic blood pressure 62 mm[Hg] Kelsie Doshi PA-C Work Phone: [facility] 06-08-2024 11:27-0500 Heart rate 67 /min Kelsie Doshi PA-C Work Phone: [facility] 06-08-2024 11:27-0500 Respiratory rate 18 /min Kelsie Doshi PA-C Work Phone: [facility] 06-08-2024 11:27-0500 SaO2% (BldA) [Mass fraction] 100 % Kelsie Doshi PA-C Work Phone: [facility] 06-08-2024 11:27-0500 Systolic blood pressure 100 mm[Hg] Kelsie Doshi PA-C Work Phone: [facility] 05-18-2024 10:08-0400 Body height 164.5 cm Alton Eisenberg MD Work Phone: [facility] 05-18-2024 10:08-0400 Body mass index (BMI) [Ratio] 26.16 kg/m2 Alton Eisenberg MD Work Phone: [facility] 05-18-2024 10:08-0400 Body weight 70.76 kg Alton Eisenberg MD Work Phone: [facility] 05-18-2024 10:08-0400 Diastolic blood pressure 74 mm[Hg] Alton Eisenberg MD Work Phone: [facility] 05-18-2024 10:08-0400 Heart rate 60 /min Alton Eisenberg MD Work Phone: [facility] 05-18-2024 10:08-0400 Respiratory rate 16 /min Alton Eisenberg MD Work Phone: [facility] 05-18-2024 10:08-0400 Systolic blood pressure 114 mm[Hg] Alton Eisenberg MD Work Phone: [facility] 05-12-2024 11:34-0400 Body height 165.1 cm Dave Alcala MD Work Phone: [facility] 05-12-2024 11:34-0400 Body mass index (BMI) [Ratio] 25.46 kg/m2 Dave Alcala MD Work Phone: [facility] 05-12-2024 11:34-0400 Body weight 69.4 kg Dave Alcala MD Work Phone: [facility] 05-12-2024 11:34-0400 Diastolic blood pressure 82 mm[Hg] Dave Alcala MD Work Phone: [facility] 05-12-2024 11:34-0400 Heart rate 68 /min Dave Alcala MD Work Phone: [facility] 05-12-2024 11:34-0400 Respiratory rate 15 /min Dave Alcala MD Work Phone: [facility] 05-12-2024 11:34-0400 SaO2% (BldA) [Mass fraction] 98 % Dave Alcala MD Work Phone: [facility] 05-12-2024 11:34-0400 Systolic blood pressure 121 mm[Hg] Dave Alcala MD Work Phone: [facility] 04-09-2024 13:33-0400 Body mass index (BMI) [Ratio] 26.13 kg/m2 Alton Eisenberg MD Work Phone: [facility] 04-09-2024 13:33-0400 Body temperature 97.5 [degF] Alton Eisenberg MD Work Phone: [facility] 04-09-2024 13:33-0400 Body weight 71.22 kg Alton Eisenberg MD Work Phone: [facility] 04-09-2024 13:33-0400 Diastolic blood pressure 60 mm[Hg] Alton Eisenberg MD Work Phone: [facility] 04-09-2024 13:33-0400 Heart rate 72 /min Alton Eisenberg MD Work Phone: [facility] 04-09-2024 13:33-0400 Respiratory rate 16 /min Alton Eisenberg MD Work Phone: [facility] 04-09-2024 13:33-0400 Systolic blood pressure 98 mm[Hg] Alton Eisenberg MD Work Phone: [facility] 12-11-2023 12:22-0400 Body height 165.1 cm Ilya Raygoza MD Work Phone: [facility] 12-11-2023 12:22-0400 Body mass index (BMI) [Ratio] 26.29 kg/m2 Ilya Raygoza MD Work Phone: [facility] 12-11-2023 12:22-0400 Body weight 71.67 kg Ilya Raygoza MD Work Phone: [facility] 12-11-2023 12:22-0400 Diastolic blood pressure 60 mm[Hg] Ilya Raygoza MD Work Phone: [facility] 12-11-2023 12:22-0400 Heart rate 68 /min Ilya Raygoza MD Work Phone: [facility] 12-11-2023 12:22-0400 Respiratory rate 16 /min Ilya Raygoza MD Work Phone: [facility] 12-11-2023 12:22-0400 Systolic blood pressure 100 mm[Hg] Ilya Raygoza MD Work Phone: [facility] 12-08-2023 11:11-0400 Body mass index (BMI) [Ratio] 25.79 kg/m2 Chanel Gardner APRN.[employer]ARD[employer] Work Phone: [facility] 12-08-2023 11:11-0400 Body weight 70.31 kg Chanel Gardner APRN.[employer] Work Phone: [facility] 12-08-2023 11:11-0400 Diastolic blood pressure 60 mm[Hg] Chanel Gardner APRN.[employer] Work Phone: [facility] 12-08-2023 11:11-0400 Heart rate 66 /min Chanel Gardner APRN.[employer] Work Phone: [facility] 12-08-2023 11:11-0400 Respiratory rate 14 /min Chanel Gardner APRN.[employer] Work Phone: [facility] 12-08-2023 11:11-0400 Systolic blood pressure 92 mm[Hg] Chanel Shilo PHIPPS Work Phone: [facility] 11-27-2023 08:17-0400 Body height 165.1 cm Dave Alcala MD Work Phone: [facility] 11-27-2023 08:17-0400 Body mass index (BMI) [Ratio] 25.63 kg/m2 Dave Alcala MD Work Phone: [facility] 11-27-2023 08:17-0400 Body weight 69.85 kg Dave Alcala MD Work Phone: [facility] 11-27-2023 08:17-0400 Diastolic blood pressure 76 mm[Hg] Dave Alcala MD Work Phone: [facility] 11-27-2023 08:17-0400 Heart rate 62 /min Dave Alcala MD Work Phone: [facility] 11-27-2023 08:17-0400 Respiratory rate 15 /min Dave Alcala MD Work Phone: [facility] 11-27-2023 08:17-0400 SaO2% (BldA) [Mass fraction] 100 % Dave Alcala MD Work Phone: [facility] 11-27-2023 08:17-0400 Systolic blood pressure 110 mm[Hg] Dave Alcala MD Work Phone: [facility] 10-09-2023 [id number] Body height 163.8 cm Reese Pagan MD Work Phone: [facility] 10-09-2023 14:11-0500 Body weight 70.49 kg Reese Pagan MD Work Phone: [facility] 10-09-2023 14:11-0500 Diastolic blood pressure 68 mm[Hg] Reese Pagan MD Work Phone: [facility] 10-09-2023 14:11-0500 Systolic blood pressure 118 mm[Hg] Reese Pagan MD Work Phone: [facility] 07-08-2023 18:35-0500 Body temperature 97.81 [degF] Mary Alice Michael HOUSEKEEPER.[employer] Work Phone: [facility] 07-08-2023 18:35-0500 Body weight 72.12 kg Mary Alice Michael HOUSEKEEPER.[employer] Work Phone: [facility] 07-08-2023 18:35-0500 Diastolic blood pressure 80 mm[Hg] Mary Alice Michael HOUSEKEEPER.[employer] Work Phone: [facility] 07-08-2023 18:35-0500 Heart rate 84 /min Mary Alice Michael HOUSEKEEPER.[employer] Work Phone: [facility] 07-08-2023 18:35-0500 Respiratory rate 16 /min Mary Alice Michael HOUSEKEEPER.[employer] Work Phone: [facility] 07-08-2023 18:35-0500 SaO2% (BldA) [Mass fraction] 98 % Mary Alice Michael HOUSEKEEPER.[employer] Work Phone: [facility] 07-08-2023 18:35-0500 Systolic blood pressure 122 mm[Hg] Mary Alice Michael HOUSEKEEPER.[employer] Work Phone: [facility] 06-18-2023 09:11-0500 Body temperature 97.9 [degF] Chip Hernandez MD Work Phone: [facility] 06-18-2023 09:11-0500 Body weight 72.3 kg Chip Hernandez MD Work Phone: [facility] 06-18-2023 09:11-0500 Diastolic blood pressure 80 mm[Hg] Chip Hernandez MD Work Phone: [facility] 06-18-2023 09:11-0500 Heart rate 74 /min Chip Hernandez MD Work Phone: [facility] 06-18-2023 09:11-0500 Respiratory rate 16 /min Chip Hernandez MD Work Phone: [facility] 06-18-2023 09:11-0500 SaO2% (BldA) [Mass fraction] 98 % Chip Hernandez MD Work Phone: [facility] 06-18-2023 09:11-0500 Systolic blood pressure 112 mm[Hg] Chip Hernandez MD Work Phone: [facility] 05-01-2023 13:40-0400 Body height 163.8 cm Alton Eisenberg MD Work Phone: [facility] 05-01-2023 13:40-0400 Body weight 69.85 kg Alton Eisenberg MD Work Phone: [facility] 05-01-2023 13:40-0400 Diastolic blood pressure 70 mm[Hg] Alton Eisenberg MD Work Phone: [facility] 05-01-2023 13:40-0400 Heart rate 64 /min Alton Eisenberg MD Work Phone: [facility] 05-01-2023 13:40-0400 Respiratory rate 16 /min Alton Eisenberg MD Work Phone: [facility] 05-01-2023 13:40-0400 Systolic blood pressure 108 mm[Hg] Alton Eisenberg MD Work Phone: [facility] 01-20-2023 07:55-0400 Body weight 72.58 kg Alton Eisenberg MD Work Phone: [facility] 01-20-2023 07:55-0400 Diastolic blood pressure 68 mm[Hg] Alton Eisenberg MD Work Phone: [facility] 01-20-2023 07:55-0400 Heart rate 72 /min Alton Eisenberg MD Work Phone: [facility] 01-20-2023 07:55-0400 Respiratory rate 14 /min Alton Eisenberg MD Work Phone: [facility] [facility] 01-20-2023 07:55-0400 Systolic blood pressure 112 mm[Hg] Alton Eisenberg MD Work Phone: [facility] 11-12-2022 15:29-0400 Body height 164.5 cm Clarissa Courson DO Work Phone: [facility] 11-12-2022 15:29-0400 Body weight 70.76 kg Clarissa Courson DO Work Phone: [facility] 11-12-2022 15:29-0400 Diastolic blood pressure 73 mm[Hg] Clarissa Courson DO Work Phone: [facility] 11-12-2022 15:29-0400 Heart rate 80 /min Clarissa Courson DO Work Phone: [facility] 11-12-2022 15:29-0400 Systolic blood pressure 117 mm[Hg] Clarissa Courson DO Work Phone: [facility] 11-08-2022 12:37-0400 Body weight 71.67 kg Chanel Gardner HOUSEKEEPER.STEWARD/[employer] Work Phone: [facility] 11-08-2022 12:37-0400 Diastolic blood pressure 66 mm[Hg] Chanel Noahoble HOUSEKEEPER.STEWARD[employer] Work Phone: [facility] 11-08-2022 12:37-0400 Heart rate 86 /min Chanel Noahoble HOUSEKEEPER.STEWARD[employer] Work Phone: [facility] 11-08-2022 12:37-0400 Respiratory rate 14 /min Chanel Noahoble HOUSEKEEPER.STEWARD[employer] Work Phone: [facility] 11-08-2022 12:37-0400 Systolic blood pressure 104 mm[Hg] Chanel Noahoble HOUSEKEEPER.STEWARD[employer] Work Phone: [facility] 10-09-2022 10:47-0500 Body weight 69.4 kg Alton Eisenberg MD Work Phone: [facility] 10-09-2022 10:47-0500 Diastolic blood pressure 72 mm[Hg] Alton Eisenberg MD Work Phone: [facility] 10-09-2022 10:47-0500 Heart rate 68 /min Alton Eisenberg MD Work Phone: [facility] 10-09-2022 10:47-0500 Respiratory rate 16 /min Alton Eisenberg MD Work Phone: [facility] 10-09-2022 10:47-0500 Systolic blood pressure 106 mm[Hg] Alton Eisenberg MD Work Phone: [facility] 08-13-2022 16:25-0500 Body temperature 98.91 [degF] Arnel Hatfield MD Work Phone: [facility] 08-13-2022 16:25-0500 Body weight 71.31 kg Arnel Hatfield MD Work Phone: [facility] 08-13-2022 16:25-0500 Diastolic blood pressure 70 mm[Hg] Arnel Hatfield MD Work Phone: [facility] 08-13-2022 16:25-0500 Heart rate 78 /min Arnel Hatfield MD Work Phone: [facility] 08-13-2022 16:25-0500 SaO2% (BldA) [Mass fraction] 98 % Arnel Hatfield MD Work Phone: [facility] 08-13-2022 16:25-0500 Systolic blood pressure 118 mm[Hg] Arnel Hatfield MD Work Phone: [facility] 08-02-2022 11:09-0500 Body height 165.1 cm Dave Alcala MD Work Phone: [facility] 08-02-2022 11:09-0500 Body weight 70.31 kg Dave Alcala MD Work Phone: [facility] 08-02-2022 11:09-0500 Diastolic blood pressure 74 mm[Hg] Dave Alcala MD Work Phone: [facility] 08-02-2022 11:09-0500 Heart rate 65 /min Dave Alcala MD Work Phone: [facility] 08-02-2022 11:09-0500 Respiratory rate 15 /min Dave Alcala MD Work Phone: [facility] 08-02-2022 11:09-0500 SaO2% (BldA) [Mass fraction] 94 % Dave Alcala MD Work Phone: [facility] 08-02-2022 11:09-0500 Systolic blood pressure 119 mm[Hg] Dave Alcala MD Work Phone: [facility] 06-13-2022 08:53-0500 Body temperature 97.7 [degF] Alton Eisenberg MD Work Phone: [facility] 06-13-2022 08:53-0500 Body weight 70.31 kg Alton Eisenberg MD Work Phone: [facility] 06-13-2022 08:53-0500 Diastolic blood pressure 80 mm[Hg] Alton Eisenberg MD Work Phone: [facility] 06-13-2022 08:53-0500 Heart rate 64 /min Alton Eisenberg MD Work Phone: [facility] 06-13-2022 08:53-0500 Respiratory rate 16 /min Alton Eisenberg MD Work Phone: [facility] 06-13-2022 08:53-0500 Systolic blood pressure 112 mm[Hg] Alton Eisenberg MD Work Phone: [facility] 05-23-2022 12:08-0400 Body temperature 98.2 [degF] Kelsie Doshi PA-C Work Phone: [facility] 05-23-2022 12:08-0400 Body weight 69.4 kg Kelsie Doshi PA-C Work Phone: [facility] 05-23-2022 12:08-0400 Diastolic blood pressure 74 mm[Hg] Kelsie Doshi PA-C Work Phone: [facility] 05-23-2022 12:08-0400 Heart rate 62 /min Kelsie Doshi PA-C Work Phone: [facility] 05-23-2022 12:08-0400 Respiratory rate 14 /min Kelsie Doshi PA-C Work Phone: [facility] 05-23-2022 12:08-0400 Systolic blood pressure 118 mm[Hg] Kelsie Doshi PA-C Work Phone: [facility] 03-25-2022 15:18-0400 Body height 163.8 cm Alton Eisenberg MD Work Phone: [facility] 03-25-2022 15:18-0400 Body weight 68.95 kg Alton Eisenberg MD Work Phone: [facility] 03-25-2022 15:18-0400 Diastolic blood pressure 78 mm[Hg] Alton Eisenberg MD Work Phone: [facility] 03-25-2022 15:18-0400 Heart rate 60 /min Alton Eisenberg MD Work Phone: [facility] 03-25-2022 15:18-0400 Respiratory rate 16 /min Alton Eisenberg MD Work Phone: [facility] 03-25-2022 15:18-0400 Systolic blood pressure 112 mm[Hg] Alton Eisenberg MD Work Phone: [facility] 01-31-2022 09:43-0400 Diastolic blood pressure 80 mm[Hg] Dave Alcala MD Work Phone: [facility] 01-31-2022 09:43-0400 Heart rate 60 /min Dave Alcala MD Work Phone: [facility] 01-31-2022 09:43-0400 SaO2% (BldA) [Mass fraction] 100 % Dave Alcala MD Work Phone: [facility] 01-31-2022 09:43-0400 Systolic blood pressure 126 mm[Hg] Dave Alcala MD Work Phone: [facility] 01-31-2022 09:41-0400 Body height 165.1 cm Dave Alcala MD Work Phone: [facility] 01-31-2022 09:41-0400 Body weight 70.31 kg Dave Alcala MD Work Phone: [facility] 01-11-2022 07:07-0400 Body temperature 98.71 [degF] Thaddeus Andres HOUSEKEEPER.STEWARD/[employer] Work Phone: [facility] 01-11-2022 07:07-0400 Body weight 70.85 kg Thaddeus Campos HOUSEKEEPER.STEWARD[employer] Work Phone: [facility] 01-11-2022 07:07-0400 Diastolic blood pressure 88 mm[Hg] Thaddeus Andres HOUSEKEEPER.STEWARD[employer] Work Phone: [facility] 01-11-2022 07:07-0400 Heart rate 83 /min Thaddeus Andres HOUSEKEEPER.[employer]EWARD[employer] Work Phone: [facility] 01-11-2022 07:07-0400 Respiratory rate 18 /min Thaddeus Andres HOUSEKEEPER.[employer]EWARD[employer] Work Phone: [facility] 01-11-2022 07:07-0400 SaO2% (BldA) [Mass fraction] 97 % Thaddeusjose Campos HOUSEKEEPER.STEWARD/[employer] Work Phone: [facility] 01-11-2022 07:07-0400 Systolic blood pressure 126 mm[Hg] Thaddeus Andres HOUSEKEEPER.STEWARD[employer] Work Phone: [facility] 01-01-2022 18:04-0400 Body temperature 98.71 [degF] Mary Alice Michael HOUSEKEEPER.STEWARD[employer] Work Phone: [facility] 01-01-2022 18:04-0400 Body weight 71.12 kg Mary Alice Michael HOUSEKEEPER.STEWARD/[employer] Work Phone: [facility] 01-01-2022 18:04-0400 Diastolic blood pressure 80 mm[Hg] Mary Alice Michael HOUSEKEEPER.STEWARD[employer] Work Phone: [facility] 01-01-2022 18:04-0400 Heart rate 68 /min Mary Alice Michael HOUSEKEEPER.STEWARD[employer] Work Phone: [facility] 01-01-2022 18:04-0400 Respiratory rate 18 /min Mary Alice Michael HOUSEKEEPER.[employer]EWARD[employer] Work Phone: [facility] 01-01-2022 18:04-0400 SaO2% (BldA) [Mass fraction] 100 % Mary Alice Michael HOUSEKEEPER.STEWARD[employer] Work Phone: [facility] 01-01-2022 18:04-0400 Systolic blood pressure 122 mm[Hg] Mary Alice Michael HOUSEKEEPER.STEWARD[employer] Work Phone: [facility] 11-01-2021 11:39-0400 Body height 165.1 cm Clarissa Courson DO Work Phone: [facility] 11-01-2021 11:39-0400 Body weight 69.04 kg Clarissa Courson DO Work Phone: [facility] 11-01-2021 11:39-0400 Diastolic blood pressure 92 mm[Hg] Clarissa Courson DO Work Phone: [facility] 11-01-2021 11:39-0400 Heart rate 78 /min Clarissa Courson DO Work Phone: [facility] 11-01-2021 11:39-0400 Systolic blood pressure 129 mm[Hg] Clarissa Courson DO Work Phone: [facility] Encounters Encounter Date Encounter Type Care Provider Facility Start: 04-07-2025 End: 04-07-2025 Subsequent hospital visit by physician Xr [facility] [place] Work Phone: Radiology Comment on above: Neck pain [M54.2] Start: 04-07-2025 End: 04-07-2025 Patient encounter procedure Alton Eisenberg MD Work Phone: [facility] [place] Comment on above: Neck pain (Primary D x); Muscle spasms of neck; Snores; Witnessed episode of apnea; Daytime somnolence Start: 04-07-2025 End: 04-07-2025 ambulatory Atlon Eisenberg MD Work Phone: [facility] [place] Comment on above: Tylenol Start: 04-06-2025 End: 04-06-2025 ambulatory Alton Eisenberg MD Work Phone: [facility] [place] Comment on above: Headache; Neck Pain Start: 04-06-2025 End: 04-07-2025 E-mail encounter from caregiver Alton Eisenberg MD Work Phone: [facility] [place] Start: 04-06-2025 End: 04-07-2025 Patient encounter procedure Alton Eisenberg MD Work Phone: [facility] [place] Comment on above: Appointment Request Start: 04-01-2025 End: 04-01-2025 ambulatory Michele Monteiro PT Work Phone: [facility] Comment on above: Closed avulsion frac ture of distal fibula with routine healing, right (Primary Dx) Start: 2025 End: 02-11-2025 ambulatory Alton Eisenberg MD Work Phone: [facility] [place] Comment on above: Covid Booster Start: 02-08-2025 End: 02-08-2025 Patient encounter procedure Alton Eisenberg MD Work Phone: [facility] [place] Comment on above: Seborrheic keratoses (Primary Dx); Bug bite, initial encounter Start: 02-08-2025 End: 02-08-2025 ambulatory ALTON EISENBERG Facility:[facility] Start: 02-07-2025 End: 02-07-2025 ambulatory Michele Monteiro PT Work Phone: [facility] Comment on above: Closed avulsion frac ture of distal fibula with routine healing, right (Primary Dx) Start: 01-27-2025 End: 01-31-2025 ambulatory Alton Eisenberg MD Work Phone: [facility] [place] Comment on above: Medicare insurance c overage Start: 01-24-2025 End: 01-24-2025 ambulatory Michele Monteiro PT Work Phone: [facility] Comment on above: Closed avulsion frac ture of distal fibula with routine healing, right (Primary Dx) Start: 01-18-2025 End: 01-18-2025 ambulatory Alton Eisenberg MD Work Phone: [facility] [place] Start: 01-18-2025 End: 01-18-2025 Follow-up encounter Alton Eisenberg MD Work Phone: [facility] [place] Comment on above: Follow Up to Left Ea r Pain Start: 01-17-2025 End: 01-17-2025 ambulatory Michele Monteiro PT Work Phone: [facility] Comment on above: Closed avulsion frac ture of distal fibula with routine healing, right (Primary Dx) Start: 01-10-2025 End: 01-10-2025 ambulatory Erika Carrillo LETTERER Work Phone: [facility] Comment on above: Closed avulsion frac ture of distal fibula with routine healing, right (Primary Dx) Start: 01-07-2025 End: 01-07-2025 Patient encounter procedure Alton Eisenberg MD Work Phone: [facility] [place] Comment on above: Acute serous otitis media of left ear, recurrence not specified (Primary Dx); Eustachian tube disorder, left Start: 01-07-2025 End: 01-07-2025 ambulatory Alton Eisenberg MD Work Phone: [facility] [place] Comment on above: Left Ear Pain Start: 01-03-2025 End: 01-04-2025 Follow-up encounter Alton Eisenberg MD Work Phone: [facility] [place] Comment on above: Results Start: 01-03-2025 End: 01-03-2025 Patient encounter procedure Chanel Gardner APRN.STEWARD[employer] Work Phone: [facility] [place] Comment on above: Acute otitis media, left (Primary Dx) Start: 01-03-2025 End: 01-03-2025 ambulatory Michele Monteiro PT Work Phone: [facility] Comment on above: Closed avulsion frac ture of distal fibula with routine healing, right (Primary Dx) [facility] medication reque [facility] Start: 12-30-2024 ambulatory ALTON EISENBERG Facili ty:[facility] Start: 12-30-2024 End: 12-30-2024 Subsequent hospital visit by physician Bone Density [facility] Work Phone: Radiology Comment on above: Osteopenia, unspecif ied location [M85.80] Start: 12-21-2024 End: 12-21-2024 ambulatory SANTIAGO CAMPOS Facility:[facility] Start: 12-21-2024 End: 12-21-2024 ambulatory SANTIAGO CAMPOS Facility:[facility] Start: 12-15-2024 End: 12-15-2024 Orders Only Santiago Campos DO Work Phone: Orthopaedics Comment on above: Closed avulsion frac ture of distal end of right fibula with routine healing (Primary Dx) Start: 12-13-2024 End: 12-13-2024 Patient encounter procedure Reymundo Clayton PA-C Work Phone: Otolaryngology Comment on above: Sensorineural hearin g loss (SNHL) of both ears (Primary Dx); History of exposure to noise; Tinnitus of both ears Start: 12-13-2024 End: 12-13-2024 Patient encounter procedure Allegra JORDAN Work Phone: Audiology Comment on above: Ear pressure, left ( Primary Dx); Other specified hearing loss, unspecified ear Start: 12-13-2024 End: 12-13-2024 ambulatory REYMUNDO CLAYTON Facility:[facility] Start: 12-07-2024 End: 02-06-2025 Follow-up encounter Reese Pagan MD Work Phone: OB/Gynecology Start: 12-07-2024 End: 12-07-2024 Office outpatient visit 15 minutes Kelsie Doshi PA-C Work Phone: [facility] [place] Comment on above: Left ear pain (Prima ry Dx); Dysfunction of left eustachian tube Start: 12-07-2024 End: 12-07-2024 ambulatory KELSIE DOSHI Facility:[facility] Start: 12-03-2024 End: 12-03-2024 Patient encounter procedure Santiago Campos DO Work Phone: [facility] [place] Comment on above: Closed avulsion frac ture of distal fibula with routine healing, right (Primary Dx) Start: 12-03-2024 End: 12-03-2024 ambulatory SANTIAGO ANDRES Facility:[facility] Start: 12-03-2024 End: 12-03-2024 Subsequent hospital visit by physician Kaiden david Pelaez Work Phone: Radiology Comment on above: Closed avulsion frac ture of distal fibula with routine healing, right [S82.831D] Start: 12-01-2024 End: 12-01-2024 Orders Only Santiago Campos DO Work Phone: Orthopaedics Comment on above: Closed avulsion frac ture of distal fibula with routine healing, right (Primary Dx) Start: 11-29-2024 End: 01-29-2025 Follow-up encounter Reese Pagan MD Work Phone: [facility] Provider Adult Start: 11-26-2024 Encounter for gynecological examination (general) (routine) without abnormal findings REESE PAGAN [facility] Start: 11-26-2024 End: 11-26-2024 ambulatory REESE PAGAN Facility:[facility] Start: 11-22-2024 End: 11-22-2024 ambulatory Alton Eisenberg MD Work Phone: [facility] [place] Comment on above: Question Regarding B ill Davion Start: 11-17-2024 End: 11-17-2024 ambulatory Alton Eisenberg MD Work Phone: [facility] [place] Comment on above: Ice or Heat Start: 11-16-2024 End: 11-16-2024 ambulatory ALTON EISENBERG Facility: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 Start: 11-05-2024 End: 11-05-2024 ambulatory SANTIAGO CAMPOS Facility:[facility] Start: 11-05-2024 End: 11-05-2024 Patient encounter procedure Santiago Andres DO Work Phone: [facility] [place] Comment on above: Closed avulsion frac ture of distal fibula with routine healing, right (Primary Dx); Right ankle injury, initial encounter; Unspecified fall, initial encounter Start: 11-04-2024 End: 11-04-2024 Subsequent hospital visit by physician Kaiden [facility] [place] Work Phone: Radiology Comment on above: Right ankle injury, initial encounter [S99.911A] Start: 11-04-2024 End: 11-07-2024 ambulatory Alton Eisenberg MD Work Phone: [facility] [place] Comment on above: Recent fall Start: 11-04-2024 End: 11-04-2024 Patient encounter procedure Saida Frank APRN.CNP Work Phone: [facility] Comment on above: Right ankle injury, initial encounter (Primary Dx); Left knee injury, initial encounter; Fall, initial encounter Start: 08-11-2024 End: 08-11-2024 Patient entered into trial Research Nurse Card [facility] Work Phone: [facility] Start: 08-11-2024 End: 08-11-2024 Patient encounter procedure Monica Valle Research Coordinator [facility] Start: 08-11-2024 End: 08-12-2024 Orders Only Monica Valle Research Coordinator Cardiology Comment on above: Chronic diastolic he art failure (HCC) (Primary Dx); Examination of participant in clinical trial ICD (implantable car dioverter-defibrillator) in place (Primary Dx); Arrhythmogenic right ventricular cardiomyopathy (HCC); 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 Start: 06-22-2024 End: 06-22-2024 Patient encounter procedure Kelsie Doshi PA-C Work Phone: [facility] [place] Comment on above: Sprain of ligament o f left ankle, initial encounter (Primary Dx) Start: 06-08-2024 End: 06-08-2024 ambulatory KELSIE DOSHI Facility:[facility] Start: 06-08-2024 End: 06-08-2024 Patient encounter procedure Kelsie Doshi PA-C Work Phone: [facility] [place] Comment on above: Sprain of ligament o f left ankle, initial encounter (Primary Dx) Start: 05-28-2024 End: 05-28-2024 Telephone encounter Reese Pagan MD Work Phone: OB/Gynecology Start: 05-18-2024 Encounter for mariely l adult medical examination without abnormal findings ALTON EISENBERG [facility] Start: 05-18-2024 End: 05-18-2024 Patient encounter procedure Alton Eisenberg MD Work Phone: [facility] [place] Comment on above: Well adult exam ([place] karol Dx); Mixed hyperlipidemia; Elevated blood sugar; Gastroesophageal reflux disease without esophagitis; 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 Start: 05-12-2024 End: 05-12-2024 [facility] Facility:[facility] Start: 05-06-2024 End: 05-07-2024 ambulatory Alton Eisenberg MD Work Phone: [facility] [place] Comment on above: Immunizations Start: 04-21-2024 End: 04-21-2024 Refill Dave Alcala MD Work Phone: Cardiology Comment on above: Refill Request Start: 04-20-2024 End: 04-20-2024 ambulatory ALTON EISENBERG Facility: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 Start: 02-11-2024 Orders Only Clarissa potter DO Work Phone: Cardiology Comment on above: Chronic systolic hea rt failure (HCC) (Primary Dx) Start: 2024 ambulatory Alton valero MD Work Phone: [facility] [place] Comment on above: Lansoprazole Prescri ption Start: 12-11-2023 End: 12-11-2023 ambulatory ILYA RAYGOZA Facility:[facility] Start: 12-11-2023 End: 12-11-2023 Patient encounter procedure Ilya Raygoza MD Work Phone: [facility] Ear, Nose, and Throat (ENT) Comment on above: Closed fracture of n kerline bone, initial encounter; Nasal obstruction; Deviated nasal septum; Hypertrophy of nasal turbinates Start: 12-09-2023 ambulatory Chanel donald HOUSEKEEPER.STEWARD[employer] Work Phone: [facility] [place] Start: 12-09-2023 Patient encounter procedure Chanel Gardner APRN.STEWARD[employer] Work Phone: [facility] [place] Comment on above: ENT Consult Start: 12-08-2023 Telephone encounter Chanel rodríguez APRN.STEWARD[employer] Work Phone: [facility] [place] Comment on above: Results Start: 12-08-2023 End: 12-08-2023 Subsequent hospital visit by physician Xr [facility] [place] Work Phone: Radiology Comment on above: Injury of nose, init ial encounter [S09.92XA] Start: 12-08-2023 End: 12-08-2023 Patient encounter procedure Chanel Gardner APRN.STEWARD[employer] Work Phone: [facility] [place] Comment on above: Injury of nose, init ial encounter (Primary Dx) Start: 11-27-2023 End: 11-27-2023 ambulatory Arrhythm[facility] Work Phone: Cardiology Comment on above: Event (ZIO PATCH) Start: 11-27-2023 End: 11-27-2023 Nursing evaluation of patient and report Research Nurse Card [facility] Work Phone: Cardiology Comment on above: Research study anna nt - IRB #[id number] [facility] PKP2 study (Primary Dx) Start: 11-27-2023 End: 11-27-2023 Patient entered into trial Research Nurse Card [facility] Work Phone: [facility] Start: 11-27-2023 End: 11-27-2023 Patient encounter procedure Dave Alcala MD Work Phone: Cardiology Comment on above: Chronic diastolic (c ongestive) heart failure (HCC) (Primary Dx); Arrhythmogenic right ventricular cardiomyopathy (HCC); 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); Chronic heart failure with preserved ejection fraction (HFpEF) (HCC); Presence of combination internal cardiac defibrillator (ICD) and pacemaker; Mixed hyperlipidemia; Nonrheumatic tricuspid valve regurgitation Start: 11-20-2023 ambulatory Alton valero MD Work Phone: [facility] Start: 11-20-2023 Follow-up encounter Alton Eisenberg MD Work Phone: [facility] [place] Comment on above: Omeprazole Follow Up Start: 11-12-2023 Follow-up encounter Clarissa Tucker DO Work Phone: [facility] Start: 11-12-2023 ICD Remote F/U Clarissa potter DO Work Phone: [facility] Start: 10-23-2023 End: 10-23-2023 Patient encounter procedure Reymundo Clayton PA-C Work Phone: Otolaryngology Comment on above: Sensorineural hearin g loss (SNHL) of both ears (Primary Dx); History of exposure to noise; Tinnitus of both ears Sensorineural hearin g loss, bilateral (Primary Dx); Dizziness; Tinnitus, bilateral; History of exposure to noise Start: 10-10-2023 Documentation procedure Mammog rosita Coordinator [facility] Start: 10-10-2023 Letter encounter Mammography Coordinator [facility] Start: 10-09-2023 End: 10-09-2023 Patient encounter procedure Reese Pagan MD Work Phone: OB/Gynecology Comment on above: Encounter for gyneco logical examination (general) (routine) without abnormal findings (Primary Dx); Encounter for gynecological examination; Encounter for screening mammogram for breast cancer; Dense breast tissue Start: 10-09-2023 End: 10-09-2023 Patient encounter status Reese Pagan MD Work Phone: [facility] Start: 10-09-2023 End: 10-09-2023 Patient encounter status Screen Wstr [facility] Start: 10-09-2023 End: 10-09-2023 Subsequent hospital visit by physician Screen Mammo [facility] Mammogram Comment on above: Encounter for gyneco logical examination (general) (routine) without abnormal findings [Z01.419] Start: 10-02-2023 Orders Only Dave Alcala MD Work Phone: Cardiology Comment on above: Arrhythmogenic right ventricular cardiomyopathy (HCC); Chronic heart failure with preserved ejection fraction (HFpEF) (HCC) Start: 09-08-2023 Telephone encounter Kelsie owen PA-C Work Phone: [facility] Comment on above: Patient Question (re garding ENT referral); Consult Start: 07-08-2023 End: 07-08-2023 Patient encounter procedure Mary Alice Michael APRN.CNP Work Phone: [facility] Comment on above: Encounter for immuni zation (Primary Dx); Avulsion of skin of finger, initial encounter Start: 07-03-2023 Refill Dave Alcala MD Work Phone: Cardiology Comment on above: Refill Request Start: 06-23-2023 Telephone encounter Altno Eisenberg MD Work Phone: [facility] [place] Comment on above: Results Start: 06-19-2023 Telephone encounter King Hernandez MD Work Phone: [facility] Comment on above: Results Start: 06-18-2023 End: 06-18-2023 Patient encounter procedure Chip Hernandez MD Work Phone: [facility] Comment on above: Acute left flank xander n (Primary Dx); Urinary urgency; Weight gain Start: 05-25-2023 ambulatory Alton valero MD Work Phone: [facility] Comment on above: Swallow Test Start: 05-22-2023 Telephone encounter Kylah Razo MA [facility] Comment on above: Results Start: 05-19-2023 End: 05-19-2023 ambulatory Favio Keith PT Work Phone: [facility] Physical Therapy Comment on above: Posterior tibialis t endinitis of both lower extremities (Primary Dx); Pes planus of both feet Start: 05-14-2023 Follow-up encounter Clarissa Tucker DO Work Phone: [facility] Start: 05-14-2023 ICD Remote F/U Clarissa potter DO Work Phone: [facility] Start: 05-01-2023 End: 05-01-2023 Patient encounter procedure Alton Eisenberg MD Work Phone: [facility] [place] Comment on above: Well adult exam (María karol Dx); Mixed hyperlipidemia; Depression with anxiety; PTSD (post-traumatic stress disorder); 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); Sinus node dysfunction (HCC); Nonrheumatic tricuspid valve regurgitation; Congestive heart failure, unspecified HF chronicity, unspecified heart failure type (HCC); Chronic constipation; Urge incontinence; Elevated blood sugar; Encounter for immunization; Balance problem; Heat intolerance; Encounter for gynecological examination; Esophageal dysphagia Start: 05-01-2023 End: 05-01-2023 Patient encounter status Alton Eisenberg MD Work Phone: [facility] Work Phone: Start: 03-28-2023 End: 03-28-2023 Patient encounter procedure Mendoza Ornelas Work Phone: Podiatry Comment on above: Posterior tibial ten don dysfunction (Primary Dx); Foot pain, bilateral; Pes planus of both feet; Callus of foot Start: 03-20-2023 Orders Only Clarissa potter DO Work Phone: Cardiology Comment on above: SOB (shortness of br eath) (Primary Dx) Start: 03-10-2023 Refill Kelsie Wiggins on PA-C Work Phone: [facility] Comment on above: Refill Request Podiatry Referal for new custom inserts Start: 03-07-2023 Refill Dave Alcala MD Work Phone: Cardiology Start: 03-06-2023 ambulatory Dave Alcala MD Work Phone: Cardiology Comment on above: Change Medication to [facility] Start: 02-14-2023 Orders Only Dave Alcala MD Work Phone: Cardiology Comment on above: Arrhythmogenic right ventricular cardiomyopathy (HCC); Hypertension, essential; Arrhythmogenic right ventricular dysplasia (HCC); Presence of combination internal cardiac defibrillator (ICD) and pacemaker Start: 02-13-2023 ambulatory Dave Alcala MD Work Phone: Cardiology Comment on above: Medication tolerance Start: 02-12-2023 Follow-up encounter Henrry gtz MD Work Phone: [facility] Start: 02-12-2023 Patient encounter procedure Henrry Duarte MD Work Phone: [facility] Start: 02-05-2023 Telephone encounter Clarissa Tucker DO Work Phone: Cardiology Comment on above: Returning Patient's Call Start: 02-03-2023 Telephone encounter Clarissa Tucker DO Work Phone: Cardiology Comment on above: Returning Patient's Call Start: 02-02-2023 ambulatory Clarissa potter DO Work Phone: Cardiology Comment on above: ICD Questions Start: 01-20-2023 End: 01-20-2023 Patient encounter procedure Alton Eisenberg MD Work Phone: [facility] Comment on above: Muscle strain of lef t scapular region, initial encounter (Primary Dx) Start: 01-03-2023 End: 01-03-2023 ambulatory Dave Alcala MD Work Phone: Cardiology Comment on above: Arrhythmogenic right ventricular cardiomyopathy (HCC); Hypertension, essential; Arrhythmogenic right ventricular dysplasia (HCC); Presence of combination internal cardiac defibrillator (ICD) and pacemaker Start: 01-03-2023 End: 01-03-2023 Telemedicine consultation with patient Dave Alcala MD Work Phone: [facility] Start: 12-12-2022 ambulatory Alton valero MD Work Phone: [facility] Start: 12-12-2022 Follow-up encounter Alton Eisenberg MD Work Phone: [facility] Comment on above: Prilosec 60 day foll ow up Start: 11-12-2022 Follow-up encounter Clarissa Echeverriaraul DO Work Phone: [facility] Start: 11-12-2022 End: 11-12-2022 Patient encounter procedure Clarissa Tucker DO Work Phone: [facility] Comment on above: Arrhythmogenic right ventricular cardiomyopathy (HCC) (Primary Dx); Sinus node dysfunction (HCC); NSVT (nonsustained ventricular tachycardia) (HCC); Presence of combination internal cardiac defibrillator (ICD) and pacemaker; Hypertension, essential; History of sustained ventricular tachycardia Start: 11-08-2022 End: 11-08-2022 Patient encounter procedure Chanel Gardner APRN.CNP Work Phone: [facility] Comment on above: Perforated tympanic membrane, left (Primary Dx) Start: 11-07-2022 ambulatory Alton valero MD Work Phone: [facility] Start: 11-07-2022 Follow-up encounter Alton Eisenberg MD Work Phone: [facility] Comment on above: Prilosec Follow up Start: 10-09-2022 End: 10-09-2022 Patient encounter procedure Alton Eisenberg MD Work Phone: [facility] [place] Comment on above: Mixed hyperlipidemia (Primary Dx); 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); Sinus node dysfunction (HCC); PTSD (post-traumatic stress disorder); Depression with anxiety; Congestive heart failure, unspecified HF chronicity, unspecified heart failure type (HCC); Chronic constipation; Left sided abdominal pain; Medication management Start: 10-07-2022 Documentation procedure Mammog rosita Coordinator [facility] Start: 10-07-2022 Letter encounter Mammography Coordinator [facility] Start: 08-30-2022 Telephone encounter Brisa Estrada) Liang ferris Cardiology Comment on above: Returning Patient's Call Start: 08-25-2022 Refill Alton valero MD Work Phone: [facility] [place] Comment on above: Refill Request Start: 08-14-2022 End: 08-14-2022 Subsequent hospital visit by physician aKiden [facility] [place] Work Phone: Radiology Comment on above: Abdominal pain, unsp ecified abdominal location [R10.9] Start: 08-13-2022 End: 08-13-2022 Patient encounter procedure Arnel Hatfield MD Work Phone: General Surgery Comment on above: Chronic constipation (Primary Dx); Abdominal pain, unspecified abdominal location Start: 08-02-2022 End: 08-06-2022 Patient encounter procedure Dave Alcala MD Work Phone: Cardiology Comment on above: Arrhythmogenic right ventricular cardiomyopathy (HCC) (Primary Dx); Hypertension, essential; Arrhythmogenic right ventricular dysplasia (HCC); Presence of combination internal cardiac defibrillator (ICD) and pacemaker; 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); Mixed hyperlipidemia; Sinus node dysfunction (HCC); Nonrheumatic tricuspid valve regurgitation; PTSD (post-traumatic stress disorder) Start: 07-19-2022 Orders Only Dave Alcala MD Work Phone: Cardiology Comment on above: Chronic systolic hea rt failure (HCC) (Primary Dx) Start: 06-25-2022 ambulatory Alton valero MD Work Phone: [facility] Start: 06-25-2022 Follow-up encounter Alton Eisenberg MD Work Phone: [facility] [place] Comment on above: Constipation and abd ominal pain follow up Start: 06-13-2022 End: 06-13-2022 Patient encounter procedure Alton Eisenberg MD Work Phone: [facility] [place] Comment on above: Chronic constipation (Primary Dx); LLQ pain Start: 06-12-2022 Telephone encounter Kelsie owen PA-C Work Phone: [facility] Comment on above: Results Start: 05-25-2022 End: 05-25-2022 Nursing evaluation of patient and report Immunization Clinic Nurse [place] Work Phone: [facility] [place] Comment on above: Need for vaccination (Primary Dx) Start: 05-24-2022 Telephone encounter Alton Eisenberg MD Work Phone: [facility] Comment on above: Results Start: 05-23-2022 Follow-up encounter Clarissa Tucker DO Work Phone: [facility] Start: 05-23-2022 ICD Remote F/U Clarissa potter DO Work Phone: [facility] Start: 05-23-2022 End: 05-23-2022 Subsequent hospital visit by physician Xr [facility] [place] Work Phone: Radiology Comment on above: Acute constipation [ K59.00] Start: 05-23-2022 End: 05-23-2022 Patient encounter procedure Kelsie Doshi PA-C Work Phone: [facility] Comment on above: Acute constipation ( Primary Dx); Left lower quadrant abdominal pain; Mixed hyperlipidemia Start: 05-22-2022 Telephone encounter Kelsie owen PA-C Work Phone: [facility] Comment on above: Results Start: 05-22-2022 End: 05-22-2022 Subsequent hospital visit by physician Bone Density [facility] Work Phone: Radiology Comment on above: Osteopenia, unspecif ied location [M85.80] Start: 05-14-2022 Orders Only Clarissa potter DO Work Phone: Cardiology Comment on above: Arrhythmogenic right ventricular cardiomyopathy (HCC) (Primary Dx); Hypertension, essential Refill Request Covid and Flu shots Start: 03-29-2022 ambulatory Alton valero MD Work Phone: [facility] [place] Comment on above: Rash on right forear m Start: 03-25-2022 End: 03-25-2022 Patient encounter procedure Alton Eisenberg MD Work Phone: [facility] [place] Comment on above: Well adult exam (María karol Dx); Mixed hyperlipidemia; Depression with anxiety; PTSD (post-traumatic stress disorder); Arrhythmogenic right ventricular cardiomyopathy (HCC); 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); Sinus node dysfunction (HCC); Osteopenia, unspecified location; AK (actinic keratosis) Start: 03-25-2022 End: 03-25-2022 Patient encounter status Alton Eisenberg MD Work Phone: [facility] Start: 01-31-2022 End: 01-31-2022 Patient encounter procedure Dave Alcala MD Work Phone: Cardiology Comment on above: Arrhythmogenic right ventricular cardiomyopathy (HCC) (Primary Dx); Hypertension, essential; Arrhythmogenic right ventricular dysplasia (HCC); Presence of combination internal cardiac defibrillator (ICD) and pacemaker; Mixed hyperlipidemia; Sinus node dysfunction (HCC); Nonrheumatic tricuspid valve regurgitation Start: 01-24-2022 ambulatory Alton valero MD Work Phone: [facility] [place] Comment on above: Epi Pen and TOprol X I Renewals Start: 01-11-2022 Follow-up encounter Clarissa Tucker DO Work Phone: [facility] Start: 01-11-2022 ICD Remote F/U Clarissa potter DO Work Phone: [facility] Start: 01-11-2022 End: 01-11-2022 Patient encounter procedure Thaddeus Campos APRN.[employer]ARD[employer] Work Phone: [facility] Comment on above: Sinobronchitis (Prim cheyanne Dx) Start: 01-01-2022 End: 01-01-2022 Patient encounter procedure Mary Alice Michael APRN.[employer]ARD[employer] Work Phone: [facility] Comment on above: Acute otitis media, left (Primary Dx); URI, acute Start: 12-06-2021 ambulatory Alton valero MD Work Phone: [facility] Start: 12-06-2021 Follow-up encounter Alton Eisenberg MD Work Phone: [facility] [place] Comment on above: Follow up on [facility] Start: 11-08-2021 Telephone encounter Alton Eisenberg MD Work Phone: [facility] [place] Comment on above: Results Start: 11-02-2021 ambulatory Ronal braden MD Work Phone: [facility] Start: 11-02-2021 Patient encounter procedure Ronal Gomez MD Work Phone: Cardiology Comment on above: Future Appointments Start: 11-01-2021 Follow-up encounter Clarissa Tucker DO Work Phone: [facility] Start: 11-01-2021 End: 11-01-2021 Patient encounter procedure Clarissa Tucker DO Work Phone: [facility] Comment on above: Arrhythmogenic right ventricular cardiomyopathy (HCC) (Primary Dx); Sinus node dysfunction (HCC); Presence of combination internal cardiac defibrillator (ICD) and pacemaker; History of sustained ventricular tachycardia Start: 10-17-2020 Patient encounter status Clarissa Tucker DO Work Phone: [facility] Work Phone: Start: 01-03-2017 End: 01-07-2017 [facility] Start: 05-16-2015 End: 04-30-2018 Patient encounter status Dave Alcala MD Work Phone: [facility] Start: 01-10-2009 End: 05-12-2013 Patient encounter status Dave Alcala MD Work Phone: [facility] Start: 07-16-2007 End: 05-12-2013 Patient encounter status Dave Alcala MD Work Phone: [facility] Procedures Date Procedure Procedure Detail Performing Clinician Start: 12-13-2024 HEARING TEST/AUDIOGRAM Reymundo Clayton PA-C Work Phone: Start: 11-10-2024 Lipid 1996 panel - Serum or Plasma Alton Eisenberg MD Work Phone: Start: 11-04-2024 Radex ankle complete minimum 3 views Saida Frank HOUSEKEEPER.[employer] Work Phone: Start: 08-11-2024 Prgrmg dev eval implantable subq lead dfb system [facility] Provider Start: 05-12-2024 Echocardiography [facility] Start: 04-20-2024 Lipid 1996 panel - Serum or Plasma Dave Alcala MD Work Phone: Start: 12-08-2023 Radex nasal bones complete minimum 3 views Chanel Gardner HOUSEKEEPER.[employer] Work Phone: Start: 11-12-2023 ICD REMOTE CHECK Clarissa Tucker DO Work Phone: Start: 10-23-2023 HEARING TEST/AUDIOGRAM Allegraashkan JORDAN Work Phone: Start: 10-22-2023 Lipid 1996 panel - Serum or Plasma Reymundo Clayton PA-C Work Phone: Start: 06-18-2023 Urnls dip stick/tablet rgnt auto w/o microscopy Chip Hernandez MD Work Phone: Start: 05-14-2023 ICD REMOTE CHECK Clarissa Tucker DO Work Phone: Start: 05-01-2023 Hemoglobin A1c/Hemoglobin.total in Blood Alton Eisenberg MD Work Phone: Start: 05-01-2023 INFLUENZA VACCINE, AGE 6 MO - 64 YR, QUADRIVALENT (AFLURIA, FLULAVAL, FLUZONE) Alton Eisenberg MD Work Phone: Start: 04-16-2023 Lipid 1995 panel - Serum or Plasma Alton Eisenberg MD Work Phone: Start: 02-12-2023 ICD CLINIC CHECK Henrry Duarte MD Work Phone: Start: 11-12-2022 ICD CLINIC CHECK Clarissa Tucker DO Work Phone: Start: 10-07-2022 Mammography Mammography Gal corona Start: 08-14-2022 Radiologic exam abdomen 1 view Arnel Hatfield MD Work Phone: Start: 05-25-2022 PFIZER-BIONTECH COVID-19 BIVALENT BOOSTER VACCINE, AGE 12+ YR Salvador Griffin Franco DO Work Phone: Start: 05-25-2022 INFLUENZA VACCINE QUADRIVALENT 6 MO - 64 YRS IM Salvador Griffin Franco DO Work Phone: Start: 05-23-2022 Radiologic exam abdomen 1 view Kelsie Doshi PA-C Work Phone: Start: 05-23-2022 ICD REMOTE CHECK Clarissa Tucker DO Work Phone: Start: 05-22-2022 Dxa bone density study 1/> sites axial skel Alton Eisenberg MD Work Phone: Start: 01-11-2022 ICD REMOTE CHECK Clarissa Tucker DO Work Phone: Start: 11-01-2021 ICD CLINIC CHECK Clarissa Tucker DO Work Phone: Start: 09-20-2021 Mammography Clraissa Tucker DO Work Phone: Start: 09-10-2019 12 lead ECG Start: 05-21-2019 Electrocardiogram Start: 05-04-2018 Colonoscopy Clarissa Tucker DO Work Phone: Plan of Treatment Date Care Activity Detail Author Start: 07-08-2033 Urine microalbumin profile DTaP,Tdap,Td Vaccine (4 - Td or Tdap) [facility] Start: 11-10-2029 Lipid panel Lipid Screening [facility] Start: 04-20-2029 Lipid panel Lipid Screening [facility] Start: 10-21-2028 Lipid panel Lipid Screening [facility] Start: 05-04-2028 Colonoscopy COLONOSCOPY [facility] Start: 05-04-2028 COLORECTAL CANCER SCREENING COLORECTAL CANCER SCREENING [facility] Start: 05-04-2028 Screening for malignant neoplasm of colon [facility] Start: 04-16-2028 Lipid 1996 panel - Serum or Plasma Lipid Screening [facility] Start: 04-16-2028 Lipid panel Lipid Screening [facility] Start: 11-11-2027 Diabetes Screening Diabetes Screening [facility] Start: 10-04-2027 LIPID SCREEN LIPID SCREEN [facility] Start: 07-19-2027 LIPID SCREEN LIPID SCREEN [facility] Start: 05-23-2027 LIPID SCREEN LIPID SCREEN [facility] Start: 04-20-2027 Diabetes Screening Diabetes Screening [facility] Start: 03-26-2027 Urine microalbumin profile [facility] Start: 02-01-2027 LIPID SCREEN LIPID SCREEN [facility] Start: 11-26-2026 Diabetes Screening Diabetes Screening [facility] Start: 10-21-2026 Diabetes Screening Diabetes Screening [facility] Start: 10-02-2026 LIPID SCREEN LIPID SCREEN [facility] Start: 08-15-2026 Diabetes Screening Diabetes Screening [facility] Start: 06-18-2026 Diabetes Screening Diabetes Screening [facility] Start: 05-01-2026 Diabetes Screening Diabetes Screening [facility] Start: 04-19-2026 PNEUMOCOCCAL (3 - PPSV23 if available, else PCV20) PNEUMOCOCCAL (3 - PPSV23 if available, else PCV20) [facility] Start: 04-19-2026 PNEUMOCOCCAL (3 - PPSV23 or PCV20) PNEUMOCOCCAL (3 - PPSV23 or PCV20) [facility] Start: 04-19-2026 Pneumococcal vaccination [facility] Start: 04-19-2026 Pneumococcal Vaccine: 50+ (3 of 3 - PCV20 or PCV21) Pneumococcal Vaccine: 50+ (3 of 3 - PCV20 or PCV21) [facility] Start: 04-07-2026 Annual PCP Team Chronic Disease Visit Annual PCP Team Chronic Disease Visit [facility] Start: 02-08-2026 Annual PCP Team Chronic Disease Visit Annual PCP Team Chronic Disease Visit [facility] Start: 01-07-2026 Annual PCP Team Chronic Disease Visit Annual PCP Team Chronic Disease Visit [facility] Start: 01-07-2026 BP Controlled (<130/80) BP Controlled (<130/80) [facility] Start: 01-03-2026 Annual PCP Team Chronic Disease Visit Annual PCP Team Chronic Disease Visit [facility] Start: 01-03-2026 BP Controlled (<130/80) BP Controlled (<130/80) [facility] Start: 12-07-2025 Annual PCP Team Chronic Disease Visit Annual PCP Team Chronic Disease Visit [facility] Start: 12-07-2025 BP Controlled (<130/80) BP Controlled (<130/80) [facility] Start: 11-28-2025 End: 11-28-2025 Patient encounter procedure 11/28/2025 2:20 PM EDT Office Visit OB/Gynecology [address] [place] [address] Reese Pagan MD [address] [place] [address] Annual OB/Gynecology Comment on above: Annual Start: 11-28-2025 End: 11-28-2025 Patient encounter procedure 11/28/2025 1:10 PM EDT Appointment Mammogram [address] [place] [id number] Encounter for screening mammogram for breast cancer [Z12.31] Mammogram Comment on above: Encounter for screening mammogram for br east cancer [Z12.31] Start: 11-26-2025 BP Controlled (<130/80) BP Controlled (<130/80) [facility] Start: 11-26-2025 Screening for malignant neoplasm of breast Mammogram Screening [facility] Start: 11-26-2025 Screening for malignant neoplasm of cervix Cervical Cancer Screening [facility] Start: 11-16-2025 Annual PCP Team Chronic Disease Visit Annual PCP Team Chronic Disease Visit [facility] Start: 11-16-2025 BP Controlled (<130/80) BP Controlled (<130/80) [facility] Start: 11-04-2025 BP Controlled (<130/80) BP Controlled (<130/80) [facility] Start: 10-03-2025 DIABETES SCREEN DIABETES SCREEN [facility] Start: 08-11-2025 BP Controlled (<130/80) BP Controlled (<130/80) [facility] Start: 07-19-2025 DIABETES SCREEN DIABETES SCREEN [facility] Start: 07-05-2025 End: 07-05-2025 Patient encounter procedure Cardiology Comment on above: DX: Arrhythmogenic right ventricular car diomyopathy, ICD Device Start: 07-05-2025 End: 07-05-2025 ambulatory 07/05/2025 11:45 AM EST Procedure Cardiology [address] [place] [address] DX: Arrhythmogenic right ventricular cardiomyopathy, ICD Device Cardiology Comment on above: DX: Arrhythmogenic right ventricular car diomyopathy, ICD Device Start: 06-22-2025 Annual PCP Team Chronic Disease Visit Annual PCP Team Chronic Disease Visit [facility] Start: 06-22-2025 BP Controlled (<130/80) BP Controlled (<130/80) [facility] Start: 06-19-2025 End: 06-19-2025 Patient encounter procedure 06/19/2025 9:10 PM EST Office Visit Neurology [address] [place] [address] Snores [R06.83]; Witnessed episode of apnea [R06.81]; Daytime somnolence [R40.0] Neurology Comment on above: Snores [R06.83]; Witnessed episode of ap tien [R06.81]; Daytime somnolence [R40.0] Start: 06-08-2025 Annual PCP Team Chronic Disease Visit Annual PCP Team Chronic Disease Visit [facility] Start: 06-08-2025 BP Controlled (<130/80) BP Controlled (<130/80) [facility] Start: 05-27-2025 End: 05-27-2025 Patient encounter procedure 05/27/2025 11:40 AM EDT Office Visit Family [facility] [address] [place] [address] Alton Eisenberg MD [address] [place] [address] [id number] MEDICARE WELLNESS EXAM Family [facility] Comment on above: MEDICARE WELLNESS EXAM Start: 05-25-2025 End: 05-25-2025 Patient encounter procedure Family [facility] Comment on above: Physical Medicare Wellness Start: 05-23-2025 DIABETES SCREEN DIABETES SCREEN [facility] Start: 05-18-2025 Annual PCP Team Chronic Disease Visit Annual PCP Team Chronic Disease Visit [facility] Start: 05-18-2025 BP Controlled (<130/80) BP Controlled (<130/80) [facility] Start: 05-16-2025 End: 05-16-2025 Patient encounter procedure 05/16/2025 2:30 PM EDT Office Visit Cardiology [address] [place] [address] Dave Alcala MD [address] [place] [address] Dx:Arrhythmogenic right ventricular cardiomyopathy (HCC) [I42.8] Cardiology Comment on above: Dx:Arrhythmogenic right ventricular card iomyopathy (HCC) [I42.8] Start: 05-16-2025 End: 05-16-2025 ambulatory 05/16/2025 12:30 PM EDT Procedure Cardiology [address] [place] [address] Dx:Arrhythmogenic right ventricular cardiomyopathy (HCC) [I42.8] Cardiology Comment on above: Dx:Arrhythmogenic right ventricular card iomyopathy (HCC) [I42.8] Start: 05-16-2025 End: 05-16-2025 Patient encounter procedure Cardiology Comment on above: Dx:Arrhythmogenic right ventricular card iomyopathy (HCC) [I42.8] Start: 05-12-2025 End: 08-11-2025 Basic metabolic 2000 panel - Serum or Plasma BASIC METABOLIC PANEL Lab Routine 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) Chronic heart failure with preserved ejection fraction (HFpEF) (HCC) Chronic diastolic (congestive) heart failure (HCC) Chronic diastolic heart failure (HCC) Nonrheumatic tricuspid valve regurgitation Presence of combination internal cardiac defibrillator (ICD) and pacemaker Hypertension, essential Arrhythmogenic right ventricular dysplasia (HCC) Expected: 05/12/2025, Expires: 08/11/2025 [facility] Work Phone: Comment on above: Expected: 05/12/2025, Expires: Start: 05-12-2025 End: 08-11-2025 Natriuretic peptide.B prohormone N-Terminal [Mass/volume] in Serum or Plasma NT PRO BNP Lab Routine 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) Chronic heart failure with preserved ejection fraction (HFpEF) (HCC) Chronic diastolic (congestive) heart failure (HCC) Chronic diastolic heart failure (HCC) Nonrheumatic tricuspid valve regurgitation Presence of combination internal cardiac defibrillator (ICD) and pacemaker Hypertension, essential Arrhythmogenic right ventricular dysplasia (HCC) Expected: 05/12/2025, Expires: 08/11/2025 [facility] Comment on above: Expected: 05/12/2025, Expires: Start: 05-12-2025 End: 05-12-2025 ambulatory 05/12/2025 7:15 AM EDT Results Only [place] [facility] Draw Station [address] [facility] [place] [address] [place] [facility] Draw Station Start: 05-06-2025 End: 08-05-2025 CBC W Auto Differential panel - Blood COMPLETE BLOOD COUNT AND DIFFERENTIAL Lab Routine Medication management Expected: 05/06/2025, Expires: 08/05/2025 [facility] Comment on above: Expected: 05/06/2025, Expires: Start: 05-06-2025 End: 08-05-2025 Comprehensive metabolic 2000 panel - Serum or Plasma COMPREHENSIVE METABOLIC PANEL Lab Routine Mixed hyperlipidemia Elevated blood sugar Expected: 05/06/2025, Expires: 08/05/2025 [facility] Work Phone: Comment on above: Expected: 05/06/2025, Expires: Start: 05-06-2025 End: 08-05-2025 Hemoglobin A1c in Blood HEMOGLOBIN A1C Lab Routine Elevated blood sugar Expected: 05/06/2025, Expires: 08/05/2025 [facility] Comment on above: Expected: 05/06/2025, Expires: Start: 05-06-2025 End: 08-05-2025 LIPID PANEL, NONFASTING LIPID PANEL, NONFASTING Lab Routine Mixed hyperlipidemia Expected: 05/06/2025, Expires: 08/05/2025 [facility] Comment on above: Expected: 05/06/2025, Expires: Start: 05-06-2025 End: 08-05-2025 Urinalysis complete panel - Urine URINALYSIS, WITH MICROSCOPIC Lab Routine Mixed hyperlipidemia Expected: 05/06/2025, Expires: 08/05/2025 [facility] Comment on above: Expected: 05/06/2025, Expires: Start: 05-06-2025 End: 05-06-2025 ambulatory 05/06/2025 9:00 AM EDT Results Only [facility] Draw Station [address] [place] [address] [facility] Draw [facility] Start: 04-12-2025 End: 04-12-2025 ambulatory 04/12/2025 1:30 PM EDT OT/PT/Speech Visit [facility] [address] [place] [address] [place] [address] [place], [place] [id number] Neck pain [M54.2]; Muscle spasms of neck [M62.838] [facility] Comment on above: Neck pain [M54.2]; Muscle spasms of neck [M62.838] Start: 04-09-2025 Annual PCP Team Chronic Disease Visit Annual PCP Team Chronic Disease Visit [facility] Start: 04-09-2025 BP Controlled (<130/80) BP Controlled (<130/80) [facility] Start: 04-07-2025 End: 04-07-2025 Patient encounter procedure 04/07/2025 10:00 AM EDT Office Visit [facility] [place] [address] [place] [address] Alton Eisenberg MD [address] [place] [id number] headache and neck pain-see triage note [facility] [place] Comment on above: headache and neck pain-see triage note Start: 04-04-2025 Influenza [facility] Start: 03-14-2025 End: 03-14-2025 ambulatory [facility] Comment on above: S82.831D (ICD-10-CM) - Closed avulsion f racture of distal fibula with routine healing, right S82.831D - Closed av ulsion fracture of Right distal fibula Start: 02-09-2025 Advance Directive Discussion Advance Directive Discussion [facility] Start: 02-09-2025 Covid-19 Vaccine ( season) Covid-19 Vaccine () [facility] Start: 02-08-2025 End: 02-08-2025 Patient encounter procedure 02/08/2025 10:40 AM EDT Office Visit [facility] [place] [address] [place] [address] Alton Eisenberg MD [address] [place] [address] Skin growth on chest and rough skin patch on back [facility] [place] Comment on above: Skin growth on chest and rough skin patc h on back Start: 02-07-2025 End: 02-07-2025 ambulatory [facility] Comment on above: S82.831D (ICD-10-CM) - Closed avulsion f racture of distal fibula with routine healing, right LVM ASKING PATIENT FOR NEW INS INFORMATION S82.831D - Closed av ulsion fracture of Right distal fibula Start: 02-01-2025 DIABETES SCREEN DIABETES SCREEN [facility] Start: 02-01-2025 Medicare Annual Wellness Visit Medicare Annual Wellness Visit [facility] Start: 01-24-2025 End: 01-24-2025 ambulatory 01/24/2025 7:45 AM EDT OT/PT/Speech Visit [facility] [address] [place] [address] Michele Monteiro, PT [address] [facility] [place] [address] Closed avulsion fracture of distal fibula with routine healing, right [S82.831D] [facility] Comment on above: Closed avulsion fracture of distal fibul a with routine healing, right [S82.831D] Start: 01-17-2025 End: 01-17-2025 ambulatory 01/17/2025 7:45 AM EDT OT/PT/Speech Visit [facility] [address] [place] [address] Michele Monteiro, PT [address] [place], [place] [id number] Closed avulsion fracture of distal fibula with routine healing, right [S82.831D] [facility] Comment on above: Closed avulsion fracture of distal fibul a with routine healing, right [S82.831D] Start: 01-10-2025 End: 01-10-2025 ambulatory 01/10/2025 8:45 AM EDT OT/PT/Speech Visit [facility] [address] [place] [address] Erika Carrillo, LETTERER [address] [place] [address] Closed avulsion fracture of distal fibula with routine healing, right [S82.831D] [facility] Comment on above: Closed avulsion fracture of distal fibul a with routine healing, right [S82.831D] Start: 01-03-2025 End: 01-03-2025 ambulatory 01/03/2025 7:45 AM EDT OT/PT/Speech Visit [facility] [address] [place] [address] Michele Monteiro, PT [address] [place] [address] Closed avulsion fracture of distal fibula with routine healing, right [S82.831D] [facility] Comment on above: Closed avulsion fracture of distal fibul a with routine healing, right [S82.831D] Start: 12-30-2024 End: 12-30-2024 Patient encounter procedure 12/30/2024 8:55 AM EDT Appointment Radiology [address] [place] [phone] Osteopenia, unspecified location [M85.80] Radiology Comment on above: Osteopenia, unspecified location [M85.80 ] Start: 12-21-2024 End: 12-21-2024 Patient encounter procedure Radiology Comment on above: call back left breast ultrsound 2 wk follow up Start: 12-17-2024 End: 12-17-2024 Patient encounter procedure 12/17/2024 11:00 AM EDT Office Visit [facility] [place] [address] [place] [place] [address] Santiago Campos V, DO [address] [place] [address] 2 wk follow up [facility] [place] Comment on above: 2 wk follow up Start: 12-14-2024 End: 12-14-2024 Patient encounter procedure 12/14/2024 10:45 AM EDT Appointment Radiology [address] [place] [place] [address] call back left breast ultrsound Radiology Comment on above: call back left breast ultrsound Start: 12-13-2024 End: 12-13-2024 Patient encounter procedure 12/13/2024 10:30 AM EDT Office Visit Otolaryngology [address] [place] [address] Reymundo Clayton PA-C [address] [place] [address] hearing loss Otolaryngology Comment on above: hearing loss Start: 12-13-2024 End: 12-13-2024 Patient encounter procedure 12/13/2024 8:30 AM EDT Office Visit Audiology [address] [place] [address] Allegra Zamora AUD [address] [place] [address] hearing loss Audiology Comment on above: hearing loss Start: 12-10-2024 End: 12-10-2024 Patient encounter procedure 12/10/2024 3:30 PM EDT Office Visit [facility] [place] [address] [place] [address] Santiago Campos V, DO [address] [facility] [place] [address] 3-4 wk follow up [facility] [place] Comment on above: 3-4 wk follow up Start: 12-10-2024 BP Controlled (<130/80) BP Controlled (<130/80) [facility] Start: 12-07-2024 Annual PCP Team Chronic Disease Visit Annual PCP Team Chronic Disease Visit [facility] Start: 12-07-2024 BP Controlled (<130/80) BP Controlled (<130/80) [facility] Start: 12-03-2024 End: 12-03-2024 Patient encounter procedure 12/03/2024 2:00 PM EDT Office Visit Family [facility] [address] [place] [address] Santiago Campos V, DO [address] [place] [address] 3-4 wk follow up Family [facility] Comment on above: 3-4 wk follow up Start: 11-26-2024 BP Controlled (<130/80) BP Controlled (<130/80) [facility] Start: 11-26-2024 End: 11-26-2024 Patient encounter procedure Mammogram Comment on above: Encounter for screening mammogram for br east cancer [Z12.31]; Dense breast tissue [R92.30] annual Start: 11-16-2024 End: 11-16-2024 Patient encounter procedure Family [facility] Comment on above: 6 month follow up Start: 11-10-2024 End: 11-10-2024 ambulatory [place] [facility] Draw Station Start: 11-09-2024 End: 11-09-2024 ambulatory 11/09/2024 7:00 AM EDT Results Only [place] [facility] Draw Station [address] [facility] [place] [address] [place] [facility] Draw Station Start: 11-05-2024 End: 11-05-2024 Patient encounter procedure 11/05/2024 2:30 PM EDT Office Visit Family [facility] [address] [place] [address] Santiago Campos V, DO [address] [place] [address] Right ankle injury, initial encounter [S99.911A] [facility] [place] Comment on above: Right ankle injury, initial encounter [S 99.698J] Start: 11-05-2024 End: 02-04-2025 Comprehensive metabolic 2000 panel - Serum or Plasma COMPREHENSIVE METABOLIC PANEL Lab Routine Mixed hyperlipidemia Elevated blood sugar Chronic diastolic heart failure (HCC) Expected: 11/05/2024, Expires: 02/04/2025 [facility] Work Phone: Comment on above: Expected: 11/05/2024, Expires: Start: 11-05-2024 End: 02-04-2025 Hemoglobin A1c in Blood HEMOGLOBIN A1C Lab Routine Elevated blood sugar Expected: 11/05/2024, Expires: 02/04/2025 [facility] Comment on above: Expected: 11/05/2024, Expires: Start: 11-05-2024 End: 02-04-2025 LIPID PANEL, NONFASTING LIPID PANEL, NONFASTING Lab Routine Mixed hyperlipidemia Chronic diastolic heart failure (HCC) Expected: 11/05/2024, Expires: 02/04/2025 [facility] Comment on above: Expected: 11/05/2024, Expires: Start: 10-30-2024 Annual PCP Team Chronic Disease Visit Annual PCP Team Chronic Disease Visit [facility] Start: 10-30-2024 BP Controlled (<130/80) BP Controlled (<130/80) [facility] Start: 10-30-2024 RSV Vaccine (1 - 1-dose 60+ series) RSV Vaccine (1 - 1-dose 60+ series) [facility] Comment on above: Postponed from 2020 (Insurance Cov erage) Start: 10-30-2024 RSV Vaccine (1 - Risk 60-74 years 1-dose series) RSV Vaccine (1 - Risk 60-74 years 1-dose series) [facility] Comment on above: Postponed from 2020 (Insurance Cov erage) Start: 10-12-2024 End: 10-12-2024 Patient encounter procedure Mammogram Comment on above: NABILA SCREENING W DESI annual Start: 10-08-2024 BP Controlled (<130/80) BP Controlled (<130/80) [facility] Start: 10-08-2024 Screening for malignant neoplasm of breast Mammogram Screening [facility] Start: 10-02-2024 DIABETES SCREEN DIABETES SCREEN [facility] Start: 09-10-2024 HPV TESTING HPV TESTING [facility] Start: 09-10-2024 PAP TESTING PAP TESTING [facility] Start: 09-10-2024 Screening for malignant neoplasm of cervix [facility] Start: 08-11-2024 End: 11-10-2024 MISC SEND OUT TST 1 MISC SEND OUT TST 1 Lab Routine Chronic diastolic heart failure (HCC) Examination of participant in clinical trial Expected: 08/11/2024 (Approximate), Expires: 11/10/2024 [facility] Work Phone: Comment on above: Expected: 08/11/2024 (Approximate), Expi res: 11/10/2024 Start: 08-11-2024 End: 08-11-2024 Nursing evaluation of patient and report 08/11/2024 12:30 PM EST Nurse Visit Cardiology [address] [id number] Main, Research Nurse Card [facility] [address] [place] [address] Research study patient - IRB #[id number] Elias [facility] PKP2 study (Primary Dx) Cardiology Comment on above: Research study patient - IRB #[id number] Lanre ramirez ARV PKP2 study (Primary Dx) Start: 08-11-2024 End: 08-11-2024 Patient encounter procedure 08/11/2024 11:45 AM EST Office Visit Cardiology [address] [id number] Clarissa Tucker DO [address] [id number] DX: Arrhythmogenic right ventricular cardiomyopath Cardiology Comment on above: DX: Arrhythmogenic right ventricular car diomyopath Start: 08-11-2024 End: 08-11-2024 Patient encounter procedure 08/11/2024 10:30 AM EST Appointment Cardiology [address] [phone] SOB (shortness of breath) [R06.02] Cardiology Comment on above: SOB (shortness of breath) [R06.02] Start: 08-11-2024 End: 08-11-2024 ambulatory Cardiology Comment on above: SOB (shortness of breath) [R06.02] [facility] [place] [id number] Vee parham Start: 08-06-2024 BP Controlled (<130/80) BP Controlled (<130/80) [facility] Start: 06-22-2024 End: 06-22-2024 Patient encounter procedure 06/22/2024 8:40 AM EST Office Visit [facility] [place] [address] [place] [address] Kelsie Doshi PA-C [address] [place] [address] left ankle follow up [facility] [place] Comment on above: left ankle follow up Start: 06-18-2024 Annual PCP Team Chronic Disease Visit Annual PCP Team Chronic Disease Visit [facility] Start: 05-28-2024 End: 08-27-2024 Basic metabolic 2000 panel - Serum or Plasma BASIC METABOLIC PANEL Lab Routine 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) Chronic heart failure with preserved ejection fraction (HFpEF) (HCC) Chronic diastolic (congestive) heart failure (HCC) Expected: 05/28/2024, Expires: 08/27/2024 [facility] Work Phone: Comment on above: Expected: 05/28/2024, Expires: Start: 05-28-2024 End: 08-27-2024 Natriuretic peptide.B prohormone N-Terminal [Mass/volume] in Serum or Plasma NT PRO BNP Lab Routine 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) Chronic heart failure with preserved ejection fraction (HFpEF) (HCC) Chronic diastolic (congestive) heart failure (HCC) Expected: 05/28/2024, Expires: 08/27/2024 [facility] Comment on above: Expected: 05/28/2024, Expires: Start: 05-18-2024 End: 05-18-2024 Patient encounter procedure 05/18/2024 10:20 AM EDT Office Visit [facility] [place] [address] [place] [address] Alton Eisenberg MD [address] [place] [address] PHysical Family [facility] [place] Comment on above: PHysical Start: 05-12-2024 End: 05-12-2024 Patient encounter procedure Vascular Medicine Comment on above: DX: Chronic diastolic heart failure Start: 05-12-2024 End: 05-12-2024 ambulatory 05/12/2024 9:15 AM EDT Results Only Cardiology [address] [place], [place] [phone] DX: Chronic diastolic heart failure Cardiology Comment on above: DX: Chronic diastolic heart failure Start: 05-05-2024 End: 05-05-2024 Patient encounter procedure 05/05/2024 2:00 PM EDT Office Visit [facility] [place] [address] [facility] [place] [address] Alton Eisenberg MD [address] [place], [place] [id number] PHysical Family [facility] [place] Comment on above: PHysical Start: 05-01-2024 Annual PCP Team Chronic Disease Visit Annual PCP Team Chronic Disease Visit [facility] Start: 05-01-2024 BP Controlled (<130/80) BP Controlled (<130/80) [facility] Start: 04-26-2024 End: 04-26-2024 Patient encounter procedure 04/26/2024 1:00 PM EDT Office Visit [facility] [place] [address] [facility] [place] [address] Alton Eisenberg MD [address] [place], [place] [phone] follow up, possible punch biopsy [facility] [place] Comment on above: follow up, possible punch biopsy Start: 04-20-2024 End: 04-20-2024 ambulatory 04/20/2024 7:00 AM EDT Results Only [place] [facility] Draw Station [address] [place] [address] [place] [facility] Draw Station Start: 04-16-2024 End: 04-16-2024 ambulatory 04/16/2024 8:00 AM EDT Results Only [place] [facility] Draw Station [address] [place] [address] [place] [facility] Draw Station Start: 04-04-2024 Covid-19 Vaccine () Covid-19 Vaccine () [facility] Start: 04-04-2024 Influenza vaccination Influ[facility]ine [facility] Start: 01-21-2024 ANNUAL PCP TEAM CHRONIC DISEASE VISIT ANNUAL PCP TEAM CHRONIC DISEASE VISIT [facility] Start: 01-21-2024 BP CONTROLLED (<130/80) BP CONTROLLED (<130/80) [facility] Start: 12-11-2023 End: 12-11-2023 Patient encounter procedure 12/11/2023 11:45 AM EDT Office Visit [facility] (ENT) [address] [place] [phone] Ilya Raygoza MD [address] [place] [address] Nasal fracture 11/30 [facility] (ENT) Comment on above: Nasal fracture 11/30 Start: 11-13-2023 BP CONTROLLED (<130/80) BP CONTROLLED (<130/80) [facility] Start: 11-09-2023 ANNUAL PCP TEAM CHRONIC DISEASE VISIT ANNUAL PCP TEAM CHRONIC DISEASE VISIT [facility] Start: 11-09-2023 BP CONTROLLED (<130/80) BP CONTROLLED (<130/80) [facility] Start: 10-17-2023 End: 12-17-2023 Comprehensive metabolic 2000 panel - Serum or Plasma COMP METABOLIC PANEL Lab Routine Mixed hyperlipidemia Expected: 10/17/2023, Expires: 12/17/2023 [facility] Work Phone: Comment on above: Expected: 10/17/2023, Expires: Start: 10-17-2023 End: 12-17-2023 LIPID PANEL, NONFASTING LIPID PANEL, NONFASTING Lab Routine Mixed hyperlipidemia Expected: 10/17/2023, Expires: 12/17/2023 [facility] Work Phone: Comment on above: Expected: 10/17/2023, Expires: Start: 10-10-2023 ANNUAL PCP TEAM CHRONIC DISEASE VISIT ANNUAL PCP TEAM CHRONIC DISEASE VISIT [facility] Start: 10-10-2023 BP CONTROLLED (<130/80) BP CONTROLLED (<130/80) [facility] Start: 10-08-2023 BP CONTROLLED (<130/80) BP CONTROLLED (<130/80) [facility] Start: 10-08-2023 Mammography [facility] Start: 10-08-2023 Screening for malignant neoplasm of breast Mammogram Screening [facility] Start: 08-13-2023 BP CONTROLLED (<130/80) BP CONTROLLED (<130/80) [facility] Start: 08-02-2023 End: 10-02-2023 Basic metabolic 2000 panel - Serum or Plasma BASIC METABOLIC PNL Lab Routine Arrhythmogenic right ventricular cardiomyopathy (HCC) Hypertension, essential Arrhythmogenic right ventricular dysplasia (HCC) Presence of combination internal cardiac defibrillator (ICD) and pacemaker Expected: 08/02/2023 (Approximate), Expires: 10/02/2023 [facility] Work Phone: Comment on above: Expected: 08/02/2023 (Approximate), Expi res: 10/02/2023 Start: 08-02-2023 BP CONTROLLED (<130/80) BP CONTROLLED (<130/80) [facility] Start: 08-02-2023 End: 08-02-2023 Echocardiography ECHO Cardiology Routine Arrhythmogenic right ventricular cardiomyopathy (HCC) Hypertension, essential Arrhythmogenic right ventricular dysplasia (HCC) Presence of combination internal cardiac defibrillator (ICD) and pacemaker Expected: 08/02/2023 (Approximate), Expires: 08/02/2023 [facility] Work Phone: Comment on above: Expected: 08/02/2023 (Approximate), Expi res: 08/02/2023 Start: 08-02-2023 End: 10-02-2023 Natriuretic peptide.B prohormone N-Terminal [Mass/volume] in Serum or Plasma NT PRO BNP Lab Routine Arrhythmogenic right ventricular cardiomyopathy (HCC) Hypertension, essential Arrhythmogenic right ventricular dysplasia (HCC) Presence of combination internal cardiac defibrillator (ICD) and pacemaker Expected: 08/02/2023 (Approximate), Expires: 10/02/2023 [facility] Work Phone: Comment on above: Expected: 08/02/2023 (Approximate), Expi res: 10/02/2023 Start: 07-05-2023 End: 09-04-2023 Basic metabolic 2000 panel - Serum or Plasma BASIC METABOLIC PNL Lab Routine Arrhythmogenic right ventricular cardiomyopathy (HCC) Hypertension, essential Arrhythmogenic right ventricular dysplasia (HCC) Presence of combination internal cardiac defibrillator (ICD) and pacemaker Expected: 07/05/2023 (Approximate), Expires: 09/04/2023 [facility] Work Phone: Comment on above: Expected: 07/05/2023 (Approximate), Expi res: 09/04/2023 Start: 07-05-2023 End: 01-04-2024 ECG COMPLETE ECG COMPLETE ECG Routine Arrhythmogenic right ventricular cardiomyopathy (HCC) Hypertension, essential Arrhythmogenic right ventricular dysplasia (HCC) Presence of combination internal cardiac defibrillator (ICD) and pacemaker Expected: 07/05/2023 (Approximate), Expires: 01/04/2024 [facility] Work Phone: Comment on above: Expected: 07/05/2023 (Approximate), Expi res: 01/04/2024 Start: 07-05-2023 End: 01-04-2024 Echocardiography ECHO Cardiology Routine Arrhythmogenic right ventricular cardiomyopathy (HCC) Hypertension, essential Arrhythmogenic right ventricular dysplasia (HCC) Presence of combination internal cardiac defibrillator (ICD) and pacemaker Expected: 07/05/2023 (Approximate), Expires: 01/04/2024 [facility] Work Phone: Comment on above: Expected: 07/05/2023 (Approximate), Expi res: 01/04/2024 Start: 07-05-2023 End: 09-04-2023 Natriuretic peptide.B prohormone N-Terminal [Mass/volume] in Serum or Plasma NT PRO BNP Lab Routine Arrhythmogenic right ventricular cardiomyopathy (HCC) Hypertension, essential Arrhythmogenic right ventricular dysplasia (HCC) Presence of combination internal cardiac defibrillator (ICD) and pacemaker Expected: 07/05/2023 (Approximate), Expires: 09/04/2023 [facility] Work Phone: Comment on above: Expected: 07/05/2023 (Approximate), Expi res: 09/04/2023 Start: 07-05-2023 Prgrmg eval implantable in prsn dual lead dfb ICD DEVICE PROGR EVAL, DUAL Procedures Routine Arrhythmogenic right ventricular cardiomyopathy (HCC) Hypertension, essential Arrhythmogenic right ventricular dysplasia (HCC) Presence of combination internal cardiac defibrillator (ICD) and pacemaker Expected: 07/05/2023 (Approximate) [facility] Work Phone: Comment on above: Expected: 07/05/2023 (Approximate) Start: 06-13-2023 ANNUAL PCP TEAM CHRONIC DISEASE VISIT ANNUAL PCP TEAM CHRONIC DISEASE VISIT [facility] Start: 05-01-2023 End: 07-01-2023 Hemoglobin A1c in Blood [facility] Work Phone: Comment on above: Expected: 05/01/2023, Expires: 3 Start: 04-04-2023 Covid-19 Vaccine ( season) Covid-19 Vaccine ( season) [facility] Start: 04-04-2023 Influenza vaccination INFLUENZA (#1) [facility] Start: 03-28-2023 End: 05-28-2023 Cobalamin (Vitamin B12) [Mass/volume] in Serum or Plasma VITAMIN B12 BLOOD Lab Routine Left sided abdominal pain Medication management Expected: 03/28/2023, Expires: 05/28/2023 [facility] Work Phone: Comment on above: Expected: 03/28/2023, Expires: 3 Start: 03-28-2023 End: 05-28-2023 Comprehensive metabolic 2000 panel - Serum or Plasma COMP METABOLIC PANEL Lab Routine Mixed hyperlipidemia Expected: 03/28/2023, Expires: 05/28/2023 [facility] Work Phone: Comment on above: Expected: 03/28/2023, Expires: 3 Start: 03-28-2023 End: 05-28-2023 LIPID PANEL, NONFASTING LIPID PANEL, NONFASTING Lab Routine Mixed hyperlipidemia Expected: 03/28/2023, Expires: 05/28/2023 [facility] Work Phone: Comment on above: Expected: 03/28/2023, Expires: 3 Start: 03-28-2023 End: 05-28-2023 Magnesium [Mass/volume] in Serum or Plasma MAGNESIUM BLD Lab Routine Left sided abdominal pain Medication management Expected: 03/28/2023, Expires: 05/28/2023 [facility] Work Phone: Comment on above: Expected: 03/28/2023, Expires: 3 Start: 03-28-2023 End: 05-28-2023 Urinalysis complete panel - Urine URINALYSIS, WITH MICROSCOPIC Lab Routine Mixed hyperlipidemia Expected: 03/28/2023, Expires: 05/28/2023 [facility] Work Phone: Comment on above: Expected: 03/28/2023, Expires: 3 Start: 09-20-2022 Mammography MAMMOGRAM [facility] Start: 09-13-2022 End: 11-13-2022 Comprehensive metabolic 2000 panel - Serum or Plasma COMP METABOLIC PANEL Lab Routine Arrhythmogenic right ventricular cardiomyopathy (HCC) Mixed hyperlipidemia Expected: 09/13/2022, Expires: 11/13/2022 [facility] Work Phone: Comment on above: Expected: 09/13/2022, Expires: 3 Start: 09-13-2022 End: 11-13-2022 LIPID PANEL, NONFASTING LIPID PANEL, NONFASTING Lab Routine Arrhythmogenic right ventricular cardiomyopathy (HCC) Mixed hyperlipidemia Expected: 09/13/2022, Expires: 11/13/2022 [facility] Work Phone: Comment on above: Expected: 09/13/2022, Expires: Start: 08-02-2022 End: 10-02-2022 Basic metabolic 2000 panel - Serum or Plasma BASIC METABOLIC PNL Lab Routine Arrhythmogenic right ventricular cardiomyopathy (HCC) Hypertension, essential Arrhythmogenic right ventricular dysplasia (HCC) Presence of combination internal cardiac defibrillator (ICD) and pacemaker Expected: 08/02/2022 (Approximate), Expires: 10/02/2022 [facility] Work Phone: Comment on above: Expected: 08/02/2022 (Approximate), Expi res: 10/02/2022 Start: 08-02-2022 End: 01-31-2023 Echocardiography ECHO Cardiology Routine Arrhythmogenic right ventricular cardiomyopathy (HCC) Hypertension, essential Arrhythmogenic right ventricular dysplasia (HCC) Presence of combination internal cardiac defibrillator (ICD) and pacemaker Expected: 08/02/2022 (Approximate), Expires: 01/31/2023 [facility] Work Phone: Comment on above: Expected: 08/02/2022 (Approximate), Expi res: 01/31/2023 Start: 08-02-2022 End: 10-02-2022 Natriuretic peptide.B prohormone N-Terminal [Mass/volume] in Serum or Plasma NT PRO BNP Lab Routine Arrhythmogenic right ventricular cardiomyopathy (HCC) Hypertension, essential Arrhythmogenic right ventricular dysplasia (HCC) Presence of combination internal cardiac defibrillator (ICD) and pacemaker Expected: 08/02/2022 (Approximate), Expires: 10/02/2022 [facility] Work Phone: Comment on above: Expected: 08/02/2022 (Approximate), Expi res: 10/02/2022 Start: 07-19-2022 End: 09-18-2022 Comprehensive metabolic 2000 panel - Serum or Plasma [facility] Work Phone: Comment on above: Expected: 07/19/2022, Expires: 3 Start: 07-19-2022 End: 09-18-2022 LIPID PANEL, NONFASTING [facility] Work Phone: Comment on above: Expected: 07/19/2022, Expires: 3 Start: 07-19-2022 End: 09-18-2022 Natriuretic peptide.B prohormone N-Terminal [Mass/volume] in Serum or Plasma [facility] Work Phone: Comment on above: Expected: 07/19/2022, Expires: 3 Start: 06-25-2022 End: 08-25-2022 Hepatic function 2000 panel - Serum or Plasma HEPATIC FUNCTION PNL Lab Routine Mixed hyperlipidemia Expected: 06/25/2022, Expires: 08/25/2022 [facility] Work Phone: Comment on above: Expected: 06/25/2022, Expires: 3 Start: 06-25-2022 End: 08-25-2022 LIPID PANEL, NONFASTING LIPID PANEL, NONFASTING Lab Routine Arrhythmogenic right ventricular cardiomyopathy (HCC) Mixed hyperlipidemia Expected: 06/25/2022, Expires: 08/25/2022 [facility] Work Phone: Comment on above: Expected: 06/25/2022, Expires: 3 Start: 05-23-2022 End: 07-23-2022 C reactive protein [Mass/volume] in Serum or Plasma [facility] Work Phone: Comment on above: Expected: 05/23/2022, Expires: 2 Start: 05-23-2022 End: 07-23-2022 CBC W Auto Differential panel - Blood [facility] Work Phone: Comment on above: Expected: 05/23/2022, Expires: 2 Start: 05-23-2022 End: 07-23-2022 Comprehensive metabolic 2000 panel - Serum or Plasma [facility] Work Phone: Comment on above: Expected: 05/23/2022, Expires: 2 Start: 05-23-2022 End: 07-23-2022 Erythrocyte sedimentation rate [facility] Work Phone: Comment on above: Expected: 05/23/2022, Expires: 2 Start: 05-23-2022 End: 07-23-2022 LIPID PANEL, NONFASTING [facility] Work Phone: Comment on above: Expected: 05/23/2022, Expires: 2 Start: 04-04-2022 Influenza vaccination INFLUENZA (#1) [facility] Start: 01-31-2022 End: 04-02-2022 Basic metabolic 2000 panel - Serum or Plasma BASIC METABOLIC PNL Lab Routine Arrhythmogenic right ventricular cardiomyopathy (HCC) Hypertension, essential Arrhythmogenic right ventricular dysplasia (HCC) Presence of combination internal cardiac defibrillator (ICD) and pacemaker Expected: 01/31/2022, Expires: 04/02/2022 [facility] Work Phone: Comment on above: Expected: 01/31/2022, Expires: 2 Start: 01-31-2022 End: 04-02-2022 Natriuretic peptide.B prohormone N-Terminal [Mass/volume] in Serum or Plasma NT PRO BNP Lab Routine Arrhythmogenic right ventricular cardiomyopathy (HCC) Hypertension, essential Arrhythmogenic right ventricular dysplasia (HCC) Presence of combination internal cardiac defibrillator (ICD) and pacemaker Expected: 01/31/2022, Expires: 04/02/2022 [facility] Work Phone: Comment on above: Expected: 01/31/2022, Expires: 2 Start: 01-24-2022 COVID-19 VACCINE (5 - Booster for Moderna series) COVID-19 VACCINE (5 - Booster for Moderna series) [facility] Start: 01-01-2022 End: 01-15-2022 Influenza virus A and B RNA and SARS-CoV-2 (COVID-19) N gene panel - Respiratory specimen by CECILIA with probe detection COVID WITH FLUA+B, ROUTINE Microbiology Routine Acute otitis media, left URI, acute Expected: 01/01/2022, Expires: 01/15/2022 [facility] Work Phone: Comment on above: Expected: 01/01/2022, Expires: 2 Start: 2020 RSV Vaccine (1 - 1-dose 60+ series) RSV Vaccine (1 - 1-dose 60+ series) [facility] Start: 07-11-2018 FECAL OCCULT BLOOD FECAL OCCULT BLOOD [facility] Start: 07-11-2018 Screening for malignant neoplasm of colon Fecal Occult Blood [facility] Start: 02-09-2005 COLOGUARD (FIT-DNA) COLOGUARD (FIT-DNA) [facility] Start: 02-09-[address] COLONOGRAPHY [facility] Start: 02-09-2005 Screening for malignant neoplasm of colon [facility] Start: 02-09-2005 SIGMOIDOSCOPY SIGMOIDOSCOPY [facility] Start: 02-09-1978 BP Controlled (<130/80) BP Controlled (<130/80) [facility] End: 12-17-2025 BD DXA TRABECULAR BONE SCORE (TBS) BD DXA TRABECULAR BONE SCORE (TBS) Radiology Routine Osteopenia, unspecified location 1 Occurrences starting 11/17/2024 until 12/17/2025 [facility] Comment on above: 1 Occurrences starting 11/17/2024 until 12/17/2025 BD DXA TRABECULAR FRANCES NE SCORE (TBS) BD DXA TRABECULAR BONE SCORE (TBS) Radiology Routine Osteopenia, unspecified location 12/30/2024 9:09 AM EDT [facility] CARDIAC IMPLANTABLE DEVICE CHECK CARDIAC IMPLANTABLE DEVICE CHECK PACEART Routine ICD (implantable cardioverter-defibrill ator) in place 1 Occurrences starting 08/11/2024 [facility] Comment on above: 1 Occurrences starting 08/11/2024 CARDIAC IMPLANTABLE DEVICE CHECK CARDIAC IMPLANTABLE DEVICE CHECK PACEART Routine Pacemaker reprogramming/check 08/11/2024 10:52 AM EST [facility] End: 11-07-2024 DBT Breast - bilateral screening NABILA SCREENING W DESI Radiology Routine Encounter for screening mammogram for breast cancer Dense breast tissue 1 Occurrences starting 10/09/2023 until 11/07/2024 [facility] Work Phone: Comment on above: 1 Occurrences starting 10/09/2023 until 11/07/2024 DBT Breast - bilater al screening NABILA SCREENING W DESI Radiology Routine Encounter for gynecological examination (general) (routine) without abnormal findings Encounter for screening mammogram for breast cancer 10/09/2023 1:49 PM EST [facility] Work Phone: End: 06-27-2025 DBT Breast - bilateral screening NABILA SCREENING W DESI Radiology Routine Encounter for screening mammogram for malignant neoplasm of breast 1 Occurrences starting 05/28/2024 until 06/27/2025 [facility] Work Phone: Comment on above: 1 Occurrences starting 05/28/2024 until 06/27/2025 End: 04-24-2023 Dxa bone density study 1/> sites axial skel DXA-AXIAL SKELETON Radiology Routine Osteopenia, unspecified location 1 Occurrences starting 03/25/2022 until 04/24/2023 [facility] Work Phone: Comment on above: 1 Occurrences starting 03/25/2022 until 04/24/2023 End: 12-17-2025 DXA Skeletal system.axial Views for bone density DXA-AXIAL SKELETON Radiology Routine Osteopenia, unspecified location 1 Occurrences starting 11/17/2024 until 12/17/2025 [facility] Work Phone: Comment on above: 1 Occurrences starting 11/17/2024 until 12/17/2025 DXA Skeletal system. axial Views for bone density DXA-AXIAL SKELETON Radiology Routine Osteopenia, unspecified location 12/30/2024 9:09 AM EDT [facility] Work Phone: End: 05-14-2023 ECG COMPLETE ECG COMPLETE ECG Routine Arrhythmogenic right ventricular cardiomyopathy (HCC) Hypertension, essential 1 Occurrences starting 05/14/2022 until 05/14/2023 [facility] Work Phone: Comment on above: 1 Occurrences starting 05/14/2022 until 05/14/2023 End: 03-20-2024 ECG COMPLETE ECG COMPLETE ECG Routine SOB (shortness of breath) 1 Occurrences starting 03/20/2023 until 03/20/2024 [facility] Work Phone: Comment on above: 1 Occurrences starting 03/20/2023 until 03/20/2024 End: 11-26-2024 ECG COMPLETE ECG COMPLETE ECG Routine 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) Chronic heart failure with preserved ejection fraction (HFpEF) (HCC) Chronic diastolic (congestive) heart failure (HCC) 1 Occurrences starting 11/27/2023 until 11/26/2024 [facility] Comment on above: 1 Occurrences starting 11/27/2023 until 11/26/2024 End: 2025 ECG COMPLETE ECG COMPLETE ECG Routine Chronic systolic heart failure (HCC) 1 Occurrences starting 02/11/2024 until 2025 [facility] Work Phone: Comment on above: 1 Occurrences starting 02/11/2024 until 2025 End: 05-12-2025 ECG COMPLETE ECG COMPLETE ECG Routine 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) Chronic heart failure with preserved ejection fraction (HFpEF) (HCC) Chronic diastolic (congestive) heart failure (HCC) Chronic diastolic heart failure (HCC) Nonrheumatic tricuspid valve regurgitation Presence of combination internal cardiac defibrillator (ICD) and pacemaker Hypertension, essential Arrhythmogenic right ventricular dysplasia (HCC) 1 Occurrences starting 05/12/2024 until 05/12/2025 [facility] Comment on above: 1 Occurrences starting 05/12/2024 until 05/12/2025 End: 08-11-2025 ECG COMPLETE ECG COMPLETE ECG Routine ICD (implantable cardioverter-defibrill ator) in place 1 Occurrences starting 08/11/2024 until 08/11/2025 [facility] Work Phone: Comment on above: 1 Occurrences starting 08/11/2024 until 08/11/2025 End: 11-01-2022 Echocardiography ECHO Cardiology Routine Arrhythmogenic right ventricular cardiomyopathy (HCC) 1 Occurrences starting 11/01/2021 until 11/01/2022 [facility] Work Phone: Comment on above: 1 Occurrences starting 11/01/2021 until 11/01/2022 End: 11-26-2024 Echocardiography ECHO Cardiology Routine 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) Chronic heart failure with preserved ejection fraction (HFpEF) (HCC) Chronic diastolic (congestive) heart failure (HCC) 1 Occurrences starting 11/27/2023 until 11/26/2024 [facility] Comment on above: 1 Occurrences starting 11/27/2023 until 11/26/2024 End: 05-12-2025 Echocardiography ECHO Cardiology Routine 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) Chronic heart failure with preserved ejection fraction (HFpEF) (HCC) Chronic diastolic (congestive) heart failure (HCC) Chronic diastolic heart failure (HCC) Nonrheumatic tricuspid valve regurgitation Presence of combination internal cardiac defibrillator (ICD) and pacemaker Hypertension, essential Arrhythmogenic right ventricular dysplasia (HCC) 1 Occurrences starting 05/12/2024 until 05/12/2025 [facility] Comment on above: 1 Occurrences starting 05/12/2024 until 05/12/2025 Influenza virus A an d B RNA and SARS-CoV-2 (COVID-19) N gene panel - Respiratory specimen by CECILIA with probe detection COVID WITH FLUA+B, ROUTINE Microbiology Routine Sinobronchitis Ordered: 01/11/2022 [facility] Work Phone: Comment on above: Ordered: 01/11/2022 End: 12-29-2025 MG Breast - left Diagnostic for implant NABILA DIAGNOSTIC LEFT Radiology Routine Abnormal mammogram 1 Occurrences starting 11/29/2024 until 12/29/2025 [facility] Work Phone: Comment on above: 1 Occurrences starting 11/29/2024 until 12/29/2025 OUTSIDE VENDOR CARDI AC OUTPATIENT EXTENDED RHYTHM RECORDING (WITHOUT TELEMETRY) OUTSIDE VENDOR CARDIAC OUTPATIENT EXTENDED RHYTHM RECORDING (WITHOUT TELEMETRY) Holter Routine Chronic diastolic heart failure (HCC) Examination of participant in clinical trial Ordered: 08/11/2024 [facility] Work Phone: Comment on above: Ordered: 08/11/2024 End: 04-07-2026 Polysomnogram POLYSOMNOGRAM (PSG) Procedures Routine Snores Witnessed episode of apnea Daytime somnolence 1 Occurrences starting 04/07/2025 until 04/07/2026 [facility] Comment on above: 1 Occurrences starting 04/07/2025 until 04/07/2026 End: 07-17-2024 US KIDNEY/BLADDER US KIDNEY/BLADDER Radiology STAT Acute left flank pain 1 Occurrences starting 06/18/2023 until 07/17/2024 [facility] Work Phone: Comment on above: 1 Occurrences starting 06/18/2023 until 07/17/2024 End: 06-22-2023 XR ABDOMEN 1V SUPINE XR ABDOMEN 1V SUPINE Radiology Routine Acute constipation Left lower quadrant abdominal pain 1 Occurrences starting 05/23/2022 until 06/22/2023 [facility] Work Phone: Comment on above: 1 Occurrences starting 05/23/2022 until 06/22/2023 XR ABDOMEN 1V SUPINE XR ABDOMEN 1V SUPINE Radiology Routine Acute constipation Left lower quadrant abdominal pain 05/23/2022 1:13 PM EDT [facility] Work Phone: End: 09-12-2023 XR ABDOMEN 1V SUPINE XR ABDOMEN 1V SUPINE Radiology Routine Abdominal pain, unspecified abdominal location Chronic constipation 1 Occurrences starting 08/13/2022 until 09/12/2023 [facility] Work Phone: Comment on above: 1 Occurrences starting 08/13/2022 until 09/12/2023 End: 12-31-2025 XR Ankle - right AP and Lateral and oblique XR ANKLE GENERAL 3V AP/LAT/OBL RIGHT Radiology Routine Closed avulsion fracture of distal fibula with routine healing, right 1 Occurrences starting 12/01/2024 until 12/31/2025 [facility] Work Phone: Comment on above: 1 Occurrences starting 12/01/2024 until 12/31/2025 XR Ankle - right AP and Lateral and oblique XR ANKLE GENERAL 3V AP/LAT/OBL RIGHT Radiology Routine Closed avulsion fracture of distal fibula with routine healing, right 12/03/2024 1:31 PM EDT [facility] Work Phone: End: 01-14-2026 XR Ankle - right AP and Lateral and oblique XR ANKLE GENERAL 3V AP/LAT/OBL RIGHT Radiology Routine Closed avulsion fracture of distal end of right fibula with routine healing 1 Occurrences starting 12/15/2024 until 01/14/2026 [facility] Work Phone: Comment on above: 1 Occurrences starting 12/15/2024 until 01/14/2026 End: 05-07-2026 XR Cervical spine AP and Lateral and oblique XR CERV OTHER 4V AP/LAT/OBL Radiology Routine Neck pain 1 Occurrences starting 04/07/2025 until 05/07/2026 [facility] Work Phone: Comment on above: 1 Occurrences starting 04/07/2025 until 05/07/2026 XR Cervical spine AP and Lateral and oblique XR CERV OTHER 4V AP/LAT/OBL Radiology Routine Neck pain 04/07/2025 11:31 AM EDT [facility] Immunizations Immunization Date Immunization Notes Care Provider [facility] 05-20-2024 respiratory syncytia l virus (RSV) vaccine, adjuvanted (AREXVY) Reese Pagan MD Work Phone: [facility] 05-06-2024 COVID-19 vaccine, ag e 12+ yr (MODERNA) Kelsie Doshi PA-C Work Phone: [facility] 05-06-2024 COVID-19 vaccine, ag e 12+ yr (PFIZER-BIONTECH COMIRNATY) Dave Alcala MD Work Phone: [facility] 05-06-2024 influenza, seasonal, injectable Dave Alcala MD Work Phone: [facility] 05-06-2024 influenza, seasonal, injectable, preservative free Kelsie Doshi PA-C Work Phone: [facility] 05-06-2024 influenza virus vaccine, unspecified formulation Reese Pagan MD Work Phone: [facility] 07-08-2023 tetanus toxoid, redu jacqueline diphtheria toxoid, and acellular pertussis vaccine, adsorbed Mary Alice Michael [employer] Work Phone: [facility] Work Phone: 05-01-2023 influenza, injectabl e, quadrivalent, contains preservative Alton Eisenberg MD Work Phone: [facility] 05-01-2023 influenza virus vaccine, unspecified formulation Alton Eisenberg MD Work Phone: [facility] 05-25-2022 COVID-19 booster vaccine, age 12+ yr, bivalent ([employer] Immunization [place] Work Phone: [facility] Work Phone: 05-25-2022 influenza, injectabl e, quadrivalent, contains preservative Immunization [place] Work Phone: [facility] 11-29-2021 COVID-19 vaccine, booster dose (MODERNA) Alton Eisenberg MD Work Phone: [facility] 04-19-2021 influenza, injectabl e, quadrivalent, contains preservative Clarissa Tucker DO Work Phone: [facility] 04-19-2021 pneumococcal polysaccharide vaccine, 23 valent Clarissa Echeverriaon DO Work Phone: [facility] 10-31-2020 COVID-19 vaccine, fu ll dose (MODERNA) Clarissa Echeverriaon DO Work Phone: [facility] 10-03-2020 COVID-19 vaccine, fu ll dose (MODERNA) Clarissa Courson DO Work Phone: [facility] 05-13-2020 influenza, injectabl e, quadrivalent, contains preservative Clarissa Tucker DO Work Phone: [facility] 06-16-2019 zoster vaccine recombinant Clarissa Courson DO Work Phone: [facility] Work Phone: 05-29-2019 influenza, injectabl e, quadrivalent, contains preservative Clarissa Echeverriaon DO Work Phone: [facility] 02-18-2019 zoster vaccine recombinant Clarissa Tucker DO Work Phone: [facility] 08-13-2018 pneumococcal conjuga te vaccine, 13 valent Clarissa Echeverriaon DO Work Phone: [facility] 06-06-2018 influenza, injectabl e, quadrivalent, contains preservative Clarissa Echeverriaon DO Work Phone: [facility] 06-13-2017 influenza, injectabl e, quadrivalent, contains preservative Clarissa Echeverriaon DO Work Phone: [facility] Work Phone: 03-28-2017 measles, mumps and rubella virus vaccine Clarissa Courson DO Work Phone: [facility] Work Phone: 03-26-2017 tetanus toxoid, redu jacqueline diphtheria toxoid, and acellular pertussis vaccine, adsorbed Clarissa Echeverriaon DO Work Phone: [facility] 06-06-2016 influenza, injectabl e, quadrivalent, contains preservative Clarissa Echeverriaon DO Work Phone: [facility] Work Phone: 05-16-2015 influenza, injectabl e, quadrivalent, contains preservative Clarissa Echeverriaon DO Work Phone: [facility] Work Phone: 03-06-2010 tuberculin skin test ; purified protein derivative solution, intradermal Alton Eisenberg MD Work Phone: [facility] 07-02-2007 tetanus toxoid, redu jacqueline diphtheria toxoid, and acellular pertussis vaccine, adsorbed Clarissa Echeverriaon DO Work Phone: [facility] Work Phone: 06-13-2007 influenza virus vaccine, unspecified formulation Clarissa Echeverriaon DO Work Phone: [facility] Work Phone: 01-12-2002 tuberculin skin test ; purified protein derivative solution, intradermal Alton Eisenberg MD Work Phone: [facility] 01-12-2002 typhoid vaccine, unspecified formulation Clarissa Tucker DO Work Phone: [facility] Work Phone: 11-11-2001 varicella virus vaccine Danielito Tucker DO Work Phone: [facility] Work Phone: 12-17-2000 tuberculin skin test ; purified protein derivative solution, intradermal Alton Eisenberg MD Work Phone: [facility] 01-11-2000 tuberculin skin test ; purified protein derivative solution, intradermal Alton Eisenberg MD Work Phone: [facility] 01-11-2000 typhoid vaccine, unspecified formulation Clarissa Tucker DO Work Phone: [facility] Work Phone: 06-13-1999 tuberculin skin test ; purified protein derivative solution, intradermal Alton Eisenberg MD Work Phone: [facility] 06-15-1997 influenza virus vaccine, whole virus Clarissa Tucker DO Work Phone: [facility] Work Phone: 06-04-1997 hepatitis A vaccine, unspecified formulation Clarissa Tucker DO Work Phone: [facility] Work Phone: 03-07-1997 measles, mumps and rubella virus vaccine Clarissa Tucker DO Work Phone: [facility] Work Phone: 03-04-1997 meningococcal polysaccharide vaccine (MPSV4) Clarissa Tucker DO Work Phone: [facility] Work Phone: 03-04-1997 tetanus and diphther ia toxoids, adsorbed, preservative free, for adult use (2 Lf of tetanus toxoid and 2 Lf of diphtheria toxoid) Clarissa Tucker DO Work Phone: [facility] Work Phone: 03-04-1997 typhoid vaccine, parenteral, acetone-killed, dried ([place] ) Kelsie Doshi PA-C Work Phone: [facility] 03-04-1997 typhoid vaccine, parenteral, other than acetone-killed, dried Alton Eisenberg MD Work Phone: [facility] 03-04-1997 yellow fever vaccine Clarissa Tucker DO Work Phone: [facility] Work Phone: 12-31-1996 hepatitis A vaccine, unspecified formulation Clarissa Tucker DO Work Phone: [facility] Work Phone: 07-26-1996 tetanus and diphther ia toxoids, adsorbed, preservative free, for adult use (2 Lf of tetanus toxoid and 2 Lf of diphtheria toxoid) Clarissa Tucker DO Work Phone: [facility] Work Phone: 07-04-1996 tetanus and diphther ia toxoids, adsorbed, preservative free, for adult use (2 Lf of tetanus toxoid and 2 Lf of diphtheria toxoid) Alton Eisenberg MD Work Phone: [facility] 05-31-1996 influenza virus vaccine, whole virus Clarissa Tucker DO Work Phone: [facility] Work Phone: 03-30-1994 typhoid vaccine, unspecified formulation Clarissa Tucker DO Work Phone: [facility] Work Phone: 04-27-1991 influenza virus vaccine, whole virus Clarissa Tucker DO Work Phone: [facility] Work Phone: 07-04-1987 hepatitis A vaccine, unspecified formulation Clarissa Tucker DO Work Phone: [facility] Work Phone: 07-04-1987 hepatitis B vaccine, adult dosage Clarissa Tucker DO Work Phone: [facility] Work Phone: 02-01-1987 hepatitis B vaccine, adult dosage Clarissa Tucker DO Work Phone: [facility] Work Phone: 01-02-1987 hepatitis B vaccine, adult dosage Clarissa Tucker DO Work Phone: [facility] Work Phone: 08-02-1984 tetanus and diphther ia toxoids, adsorbed, preservative free, for adult use (2 Lf of tetanus toxoid and 2 Lf of diphtheria toxoid) Clarissa Tucker DO Work Phone: [facility] Work Phone: 07-04-1984 measles, mumps and rubella virus vaccine Clarissa Tucker DO Work Phone: [facility] Work Phone: 07-04-1984 trivalent poliovirus vaccine, live, oral Clarissa Tucker DO Work Phone: [facility] Work Phone: 04-02-1983 vaccinia (smallpox) vaccine, diluted Clarissa Tucker DO Work Phone: [facility] Work Phone: Payers Date Payer Category Payer Medicare MEDICARE [id number] 2025 Department of Geoff donald (JONATHON and others) [id number] 2025 Medicare [id number] 2019 Government (not [facility] or Medicaid) [id number] 2019 [employer] of [employer] [employer] ( and others) [id number] 2013 Unknown [id number] 2006 Unknown [place] [id number] 2006-Present [phone] [address] [place] [address] Indemnity [id number] 2006 Unknown [id number] Social History Date Type Detail Facility Start: 03-25-2022 End: 04-09-2024 Tobacco smoking status NHIS Ex-smoker [facility] Start: 08-04-1978 End: 08-04-1988 History of tobacco use Current smoker [facility] Start: 08-04-1978 End: 08-04-1988 History of tobacco use Cigarette Smoker [facility] Start: 11-01-2021 End: 04-07-2025 Alcohol intake Current non-drinker of alcohol (finding) [facility] Start: 03-29-2020 End: 10-02-2022 History SDOH Alcohol Frequency 1 [facility] Start: 03-29-2020 History SDOH Alcohol Std Drinks 98 [facility] Start: 09-12-2019 End: 10-02-2022 History SDOH Social Connections Phone 5 [facility] Start: 03-14-2020 End: 10-02-2022 History SDOH Social Connections Get Together 2 [facility] Start: 09-12-2019 End: 10-02-2022 History SDOH Social Connections Cheondoism 3 [facility] Start: 03-14-2020 History SDOH Physica l Activity MPS 7 [facility] Start: 09-12-2019 Education 17 [facility] Start: 09-15-2020 End: 03-25-2022 Tobacco Comment quit 32 years ago [facility] Start: 1960 Sex Assigned At Female [facility] Start: 10-21-2021 End: 06-13-2022 Exposure to SARS-CoV-2 (event) Not sure [facility] Work Phone: Start: 03-25-2022 End: 01-03-2023 Cigarettes smoked current (pack per day) - Reported 0.5 [facility] Start: 03-25-2022 End: 04-09-2024 Tobacco use and exposure Smokeless tobacco non-user [facility] Start: 03-18-2022 End: 10-02-2022 History SDOH Alcohol Std Drinks 0 [facility] Start: 03-18-2022 End: 10-02-2022 History SDOH Physical Activity MPS 6 [facility] Start: 10-02-2022 History SDOH Physica l Activity DPW 4 [facility] Start: 10-02-2022 End: 01-03-2023 Social connection and isolation panel [facility] Do you belong to any clubs or organizations such as shinto groups, unions, fraternal or athletic groups, or school groups? Yes [facility] Are you now , , , , never or living with a partner? [facility] How often to you hav e a drink containing alcohol? Never [facility] Start: 07-05-2012 How many standard drinks containing alcohol do you have on a typical day? Patient does not drink [facility] Do you feel stress - tense, restless, nervous, or anxious, or unable to sleep at night because your mind is troubled all the time - these days [OSQ] To some extent [facility] (I/We) worried noemi er (my/our) food would run out before (I/we) got money to buy more. Never true [facility] In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 tingling, breathing difficulties, shortness of breath or any chest pain. 10. : n/a Please see Headache protocol as all questions discuss both neck and shoulder pain as well as her headache. No Additional Information on file. Protocols Used Rygcisoa-NMMOG-DD Neck Pain or Dcmplndjg-EXPHF-FJ documented in this encounter [facility] 04-01-2025 History of Present illness Narrative Program_ID:[id number] Access Code: [email or web address] URL: [email or web address] Date: 04-01-2025 Prepared By: Michele Monteiro Program Notes Exercises - Single Leg Stance - 1 x daily - 7 x weekly - 4 sets - 1 reps - Single Leg Heel Raise - 1 x daily - 7 x weekly - 4 sets - 10 reps Images from the original note were not included. Episode Visit Count: 7 Therapist That Will Accept/Oversee The Plan Of Care: Michele Monteiro PT Start of Care Date: 12/21/24 Onset Date: 11/04/24 Plan of Care Certification Date: 07/08/19 Next Certification Due Date: 09/02/19 Patient Identified by Name and Date of : Yes REHABILITATION AND SPORTS THERAPY PHYSICAL THERAPY DISCONTINUANCE OF CARE PLAN OF CARE UPDATE: Assessment: Chris Ricardo is discontinued from Physical Therapy services due to goal achievement and maximal benefit.. Patient was seen for 7 visits from Start of Care Date: 12/21/24 to 04/01/2025 and treatment included: Therapeutic exercise and Neuromuscular re-education. Goals updated 04/01/25 Goals for Episode of Care: established 12/21/24 Increase ROM of R ankle DF to 16-20 degrees for normalized gait pattern - MET Increased strength of R ankle to 5/5 for improved stability when walking on uneven surfaces to prevent further injury - MET Improve flexibility of R gastrocnemius to WNL for improved DF during gait to restore normal mechanics - MET Normal gait. - MET Reciprocal stair negotiation. - MET Pt will demo SL heel raises without pain in 4 weeks or less for improved stability and control during hiking and walking on uneven surfaces MET Patient Goals: Get back to walking outside SUBJECTIVE: She is back in her walking routine and using walking poles to help with stability. She fell off the wagon with the exercises. She is having swelling at times in the ankle but this is less and less. Functional Limitations: nothing Prior Level of Function: Independent without limitations Intake Information: Prescription present Pain: Pain Pain Level: 0 Pain Location: Ankle - Right PROMIS Scales 03/30/2025 01/23/2025 12/21/2024 Higher is Better Phys Func - T Score 44 (mild dysfunction) 47 (within normal limits) 39 (moderate dysfunction) Phys Func - Percentile 27 38 14 Self-Eff Symptom - T Score 49 (Average) 50 (Average) 51 (Average) Self-Eff Symptom - Percentile 46 50 54 07/17/2019 Lower is Better Pain Interference - T Score 47 (within normal limits) Pain Interference - Percentile 62 T-Score and Percentile Interpretation T-scores: mean of general population = 50. 5 points is clinically meaningfully difference Percentiles provide an indication of how the patient's score ranks in relation to the general population. Higher percentile rankings indicate better function/quality of life. 50th percentile is the average of the general population and indicates half of respondents had a worse score. OBJECTIVE MEASURES WITH LEVEL OF FUNCTION: LE AROM R LE AROM: WNL L LE AROM: WNL LE Flexibility Flexibility: Gastrocnemius Flexibility R Gastrocnemius Flexibility: WNL L Gastrocnemius Flexibility: WNL LE Strength R LE Strength: Grossly 5/5 L LE Strength: Grossly 5/5 Gait Gait Observation: WNL Stairs: WNL TREATMENT: Therapeutic Exercise: 1: All objective measures taken 2: SL heel raises x 8 Skilled Intervention: Patient was educated in proper exercise technique and purpose for exercises. Correct performance of therapeutic exercises was facilitated with verbal cuing. Billing Therapeutic Exercise Treatment Minutes: 12 Skilled Treatment Time Minutes (timed and untimed codes): 12 Total Session Time (minutes): 12 Session Start Time : 1103 Session Stop Time : 1115 Michele Monteiro PT documented in this encounter [facility] 04-01-2025 Note [facility] 02-08-2025 Instructions Alton Eisenberg MD - 02/08/2025 11:30 AM EDT We discussed the growth on your chest: - The growth appears to be a seborrheic keratosis, which is a benign age spot. These are common and often hereditary. - Please monitor the growth for any changes, including scaling and peeling that comes back, bleeding, or changes in color. If any of these occur, let me know, and we will remove it. We discussed the dry patch on your back: - This also appears to be a seborrheic keratosis. As long as it is not painful or excessively itchy, we can continue to monitor it. - If it becomes very itchy, painful, or shows any concerning changes, please let me know. We discussed the bug bite you noticed this morning: - The bite appears to be a typical insect bite, likely from a deer fly or similar insect. - Wash the area with soapy water and apply xvrh-nda-hlukznf cortisone cream to reduce inflammation. - Use a pen to kel the edges of the redness and monitor for any spreading, warmth, or tenderness. If these symptoms develop, please send me a message through Begun, and I will prescribe an antibiotic if needed. - Since you are leaving for [place] on Friday, monitor the bite closely over the next 2-3 days. If it worsens before your trip, contact me so we can address it before you leave. Safe travels, and please reach out if you have any concerns before your trip. documented in this encounter [facility] 02-08-2025 Note [facility] 02-08-2025 History of Present illness Narrative Chief Complaint Patient presents with: Derm Problem HPI Chris Ricardo is a 64 year old female who presents here today for Above Complaints.. Chris Ricardo is a 64-year-old female presenting with concerns about a growth on her chest, a dry patch on her back, and a recent insect bite. Chris reports noticing a growth on her chest since the winter, which was initially pruritic but is now less bothersome. She denies any scaling, crusting, or peeling of the growth. Chris also has a dry patch on her back, noticed around the same time, which is pruritic but not painful. Additionally, Chris was bitten by an insect this morning during a walk. She observed a ring around the bite area in the mirror and reports the area is currently puffy. She suspects it was a deer fly bite. She denies significant tenderness or warmth at the site. She is concerned about the appearance of the ring around the bite. Chris is planning a 3-week trip to [place], leaving next Friday afternoon. Past medical history, appointments, medications, allergies reviewed. Previous Medical History PAST MEDICAL HISTORY Diagnosis Date Abnormal mole AK (actinic keratosis) 10/17/2020 Ankle instability, left 06/08/2019 Arrhythmogenic right ventricular cardiomyopathy (HCC) 08/07/2023 Bee sting allergy 04/05/2020 Benign neoplasm of colon 04/16/2010 Tubular adenoma 04/16/12 Cataracts, bilateral 03/2020 Chronic constipation 06/13/2022 Chronic heart failure with preserved ejection fraction (HFpEF) (HCC) 08/07/2023 Chronic left shoulder pain 05/28/2018 Compound nevus 11/27/2020 Abd LLQ removed 11/2020 Congestive heart failure (HCC) 10/09/[address] Alcala: stage 2 Constipation Depression with anxiety 07/09/2017 Situational, Managed by Counseling. Diffuse cystic mastopathy Elevated blood sugar 05/01/2023 Encounter for gynecological examination 05/01/2023 Essential hypertension Family history of breast cancer 07/04/2016 Family history of malignant neoplasm of breast 05/07/2007 2 maternal aunts History of COVID-19 03/25/202201/2022 Insomnia, unspecified rare Left shoulder pain 03/11/2011 Low testosterone level in female 2010 Mixed hyperlipidemia 2006 was on simvastatin, was able to come off med. Nonrheumatic tricuspid valve regurgitation 01/31/2022 Osteopenia ++FHx osteoporosis Peroneal tendinitis of left lower extremity 08/27/2017 Personal history of colonic polyps 04/21/2013 tubular adenoma. 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 Tucker and Dr. Alcala: Cardiomyopathy. Had cardiac arrest, has a pace maker/defibulator. Is limited to what exercising she can do. Plantar fasciitis of left foot 08/27/2017 Plantar fasciitis of right foot 07/18/2016 Presence of combination internal cardiac defibrillator (ICD) and pacemaker 01/14/2017 Ptosis, left eyelid benign PTSD (post-traumatic stress disorder) 08/13/2018 Tinnitus, bilateral 10/23/2023 Unspecified closed fracture of ankle 2000 Ankle fracture left [place], [place] Urge incontinence Previous Surgical History PAST SURGICAL HISTORY Procedure Laterality Date APPENDECTOMY 1970 [place], [place] BLEPHAROPLASTY, UPPER EYELID Left 2017 BREAST BIOPSY 2007 left breast ([facility]) CARDIAC CATH 01/05/2017 normal COLONOSCOPY 04/27/2013 normal, repeat in 5 yrs d/t pers hx polyps and poss fam hx gi malignancy COLONOSCOPY 05/04/2018 repeat 10 yrs, Dr. Liu HALLSC FLX W/RMVL OF TUMOR POLYP LESION SNARE TQ 04/16/2010 tubular adenoma at 70cm DILATION & CURETTAGE DX&/THER NONOBSTETRIC 09/2008 Dilation & curettage, Uterine Ablation with Novasure LEAD,PACEMAKER/DEFIB COMBO 01/06/2017 NOVASURE 09/2008 PRK Bilateral 01/2002 in [place] RADIOFREQUENCY ABLATION 01/03/2017 TONSILLECTOMY PRIMARY/SECONDARY <AGE 12 1970 Tonsillectomy [place], [place] Family History FAMILY HISTORY Problem Relation Age of Onset Hypertension Mother dx age 30's Headache Mother Osteoporosis Mother Cataract Mother Lipids Mother Dementia Mother Alzheimer's Disease Father first symptoms around 70 Diabetes Father late 70's Hypertension Father Lipids Father Arthritis Father Cataract Father Osteoporosis Sister other (Abdominal Aortic Aneurysm) Maternal Grandmother Diabetes Paternal Grandmother Cancer Paternal Grandfather unknown Skin Cancer Daughter Breast Cancer Maternal Aunt x2 other (Abdominal Aortic Aneurysm) Maternal Aunt x2 Osteoporosis Maternal Aunt Osteoporosis Maternal Aunt Osteoporosis Maternal Aunt Osteoporosis Maternal Aunt other (Abdominal Aortic Aneurysm) Maternal Uncle Osteoporosis Maternal Uncle Osteoporosis Maternal Uncle Osteoporosis Maternal Uncle Osteoporosis Maternal Uncle Colon Cancer Other none other (cousin of blood clot; had dm, af and etoh) Other Patient Allergies ALLERGIES Allergen Reactions Bee Sting Swelling Omeprazole Other: See Comments vivid dreams Current Medications Current Outpatient Medications on File Prior to Visit Medication Sig fluticasone propionate (FLONASE NASAL) Use in the nose two times a day. EPINEPHrine (AUVI-Q) 0.3 mg/0.3 mL auto-injector Inject 0.3 mL intramuscularly as needed. Carboxymethylcellulose-Glycern (OPTIVE) 0.5-0.9 % drop Use 1 Drop in both eyes as needed. atorvastatin (LIPITOR) 10 mg tablet Take 1 tablet by mouth daily at bedtime. For cholesterol. empagliflozin (JARDIANCE) 10 mg tablet Take 1 tablet by mouth daily with breakfast. furosemide (LASIX) 40 mg tablet Take 1 tablet by mouth once daily. metoprolol succinate ER (TOPROL XL) 25 mg 24 hr tablet Take 1.5 tablets by mouth once daily. L. acidophilus/Bifid. animalis (PROBIOTIC) 5 billion cell cpSP Take 1 capsule by mouth once daily. glucosamine/chondr barrera A sod (OSTEO BI-FLEX ORAL) Take by mouth once daily. CALCIUM-VITAMIN D3 ORAL Take by mouth. 1200 calcium- 1000 units D3 (2) tablets twice daily acetaminophen (TYLENOL) 500 mg tablet Take 500 mg by mouth every 6 hours as needed. multivitamin ORAL tablet Take 1 tablet by mouth once daily. aspirin 81 mg ORAL Chew Take one(1) tablet daily. No current facility-administered medications on file prior to visit. Social History Social History Tobacco Use Smoking status: Former Current packs/day: 0.00 Average packs/day: 0.5 packs/day for 10.0 years (5.0 ttl pk-yrs) Types: Cigarettes Start date: 08/04/1978 Quit date: 08/04/1988 Years since quittin.5 Passive exposure: Never Smokeless tobacco: Never Tobacco comments: quit 32 years ago Vaping Use Vaping status: Never Used Substance Use Topics Alcohol use: No Drug use: No Review of Symptoms REVIEW OF SYSTEMS SEE HPI EXAM: BP 106/80 (BP Site: Right Arm, BP Position: Sitting, BP Cuff Size: Regular Adult) Pulse 68 Resp 16 Wt 73.5 kg (162 lb) LMP 09/29/2008 BMI 26.96 kg/m General Appearance: Well appearing, alert, in no acute distress, well-hydrated, well nourished.. Skin: has what appears to be a benign seborrheic Keratosis on the right upper chest and right lower lateral back. On the left medial elbow/forearm area is an area of erythema. No induration, warmth or tenderness. . Health Maintenance List Medicare Annual Wellness Visit Never done Influenza Vaccine(1) due on 04/04/2025 Mammogram Screening due on 11/26/2025 Cervical Cancer Screening due on 11/26/2025 Annual PCP Team Chronic Disease Visit due on 02/08/2026 Pneumococcal Vaccine: 50+(3 of 3 - PCV20 or PCV21) due on 04/19/2026 Diabetes Screening due on 11/11/2027 Colorectal Cancer Screening due on 05/04/2028 Lipid Screening due on 11/10/2029 DTaP,Tdap,Td Vaccine(4 - Td or Tdap) due on 07/08/2033 RSV Vaccine Completed Hepatitis C Screening Completed Shingrix Vaccine Completed Covid-19 Vaccine Completed HIV Screening Discontinued Data reviewed Assessment and Plan 1. Seborrheic keratoses (L82.1) Lesions on chest and back consistent with seborrheic keratoses; benign and non-painful, with occasional pruritus. - Monitor for changes such as scaling, bleeding, or color change. - Advised patient to report any significant changes for potential removal. 2. Bug bite, initial encounter (W57.XXXA) Recent insect bite with erythematous ring; no warmth or significant tenderness on examination. - Clean area with soapy water and apply wtdp-tdq-oefxmya cortisone cream. - Monitor for increased redness, warmth, or tenderness. - Kel the area with a pen to track any spreading. - Patient to send a Begun message if symptoms worsen within the next 2-3 days for potential antibiotic treatment. Alton Eisenberg MD Recording using Recite Me software for draft documentation of the visit was discussed with the patient/authorized employee representative; all questions welcomed and answered. Patient/authorized employee representative agreed to proceed documented in this encounter [facility] 02-07-2025 History of Present illness Narrative Program_ID:[id number] Access Code: [email or web address] URL: [email or web address] Date: 02-07-2025 Prepared By: Michele Monteiro Program Notes Exercises - Mini Squat with Counter Support - 2-3 x daily - 7 x weekly - 2 sets - 10 reps - Eccentric Heel Lowering on Step - 1 x daily - 7 x weekly - 4 sets - 10 reps - Single Leg Stance - 1 x daily - 7 x weekly - 4 sets - 1 reps Episode Visit Count: 6 Therapist That Will Accept/Oversee The Plan Of Care: Michele Monteiro PT Start of Care Date: 12/21/24 Onset Date: 04/03/25 Plan of Care Certification Date: 07/08/19 Next Certification Due Date: 09/02/19 Patient Identified by Name and Date of : Yes REHABILITATION AND SPORTS THERAPY PHYSICAL THERAPY TREATMENT NOTE ASSESSMENT: Chris Ricardo tolerated the session with expected muscle soreness. She demonstrated no pain with any of the exercises. The patient will continue to benefit from ongoing skilled physical therapy to progress toward set goals. PLAN FOR NEXT VISIT: Possible DC SUBJECTIVE: Had some swelling of soft tissue around the lateral ankle. The BOSU exercise can cause pain in the ankle. Pain: Pain Pain Level: 0 Pain Location: Ankle - Right OBJECTIVE MEASURES WITH LEVEL OF FUNCTION: Some ankle lateral sway with SL stance TREATMENT: Therapeutic Exercise: 1: Eccentric calf lowering on step 2 x 10 2: Squats x 20 Skilled Intervention: Patient was educated in proper exercise technique and purpose for exercises. Neuromuscular Re-Education: 1: F/B taps on tilt board x 50 2: Balancing on tilt board F/B x 30 sec 3: SL stance 2 x 30 4: SL stance with opp hip circumduction 5: R SL stance with opp march 2 x 30 sec Skilled Intervention: Skilled judgment used to assess appropriate program for balance and coordination activity. Self-Intermediate Management: 1: Discussed footwear for walking vs recreational activities. Avoid inserts with [place]as due to the plush quality of the shoes. Skilled Intervention: Skilled judgment in the selection of proper modification for activity of daily living/home management based on clinical presentation, deficits, and needs. Billing Therapeutic Exercise Treatment Minutes: 8 Neuromuscular Re-Education Treatment Minutes: 29 Self-Care/Home Management Treatment Minutes: 4 Skilled Treatment Time Minutes (timed and untimed codes): 41 Total Session Time (minutes): 41 Session Start Time : 742 Session Stop Time : 823 Michele Monteiro PT documented in this encounter [facility] 02-07-2025 Note [facility] 01-27-2025 Telephone encounter Note Changed appt to Medicare Wellness. Updated pt about Medicare Wellness. Cindy Snider MA [facility] 01-27-2025 Miscellaneous Notes Changed appt to Medicare Wellness. Updated pt about Medicare Wellness. Cindy Snider MA documented in this encounter [facility] 01-24-2025 Note [facility] 01-24-2025 History of Present illness Narrative Images from the original note were not included. Episode Visit Count: 5 Therapist That Will Accept/Oversee The Plan Of Care: Michele Monteiro PT Start of Care Date: 12/21/24 Onset Date: 11/04/24 Plan of Care Certification Date: 07/08/19 Next Certification Due Date: 09/02/19 Patient Identified by Name and Date of : Yes REHABILITATION AND SPORTS THERAPY PHYSICAL THERAPY PROGRESS REPORT PLAN OF CARE UPDATE: Assessment: Chris Ricardo demonstrates difficulty with R ankle neuromuscular control compared to the L and improvements in walking in the community. The patient has progressed toward goals. Patient continues to present with impairments in balance that interfere with walking in the community (Hiking) . Current prognosis is Good due to: current objective clinical presentation . The patient will benefit from continued skilled therapy services to meet the updated goals for this plan of care as noted below. Goals updated 01/24/25 Goals for Episode of Care: established 12/21/24 Increase ROM of R ankle DF to 16-20 degrees for normalized gait pattern - MET Increased strength of R ankle to 5/5 for improved stability when walking on uneven surfaces to prevent further injury - MET Improve flexibility of R gastrocnemius to WNL for improved DF during gait to restore normal mechanics - MET Normal gait. - MET Reciprocal stair negotiation. - MET Pt will demo SL heel raises without pain in 4 weeks or less for improved stability and control during hiking and walking on uneven surfaces (NEW) Patient Goals: Get back to walking outside Time Frame for Goals and Treatment : 02/01/25 Patient Goals: Get back to walking outside Planned Interventions, Frequency, and Duration: 1x every other week, 4 weeks Total Number of Visits Planned: 2 Patient to be seen for Therapeutic exercise (90081), Neuromuscular re-education (51015), Manual therapy (91768), Therapeutic activities (72344), Self-correction management (11980), Patient/Family/Caregiver Education PLAN FOR NEXT VISIT: RLE ankle control exercises SUBJECTIVE: Pt feels 70% improved overall. Balance is getting a little better and strength is better. No pain today. Stairs is good. Slower with uneven surfaces. Still using treking poles when walking. Patient Goals: Get back to walking outside Functional Limitations: walking in the community (Hiking) Prior Level of Function: Independent without limitations Intake Information: Prescription present Previous Treatment: Exercises per physician Pain: Pain Pain Level: 0 (4/10 sharp pain with resisted PF) Pain Location: Ankle - Right PROMIS Scales 01/23/2025 12/21/2024 07/01/2023 Higher is Better Phys Func - T Score 47 (within normal limits) 39 (moderate dysfunction) 47 (within normal limits) Phys Func - Percentile 38 14 38 Self-Eff Symptom - T Score 50 (Average) 51 (Average) 49 (Average) Self-Eff Symptom - Percentile 50 54 46 07/17/2019 Lower is Better Pain Interference - T Score 47 (within normal limits) Pain Interference - Percentile 62 T-scores: mean of general population = 50. 5 points is clinically meaningfully difference Percentiles provide an indication of how the patient's score ranks in relation to the general population. Higher percentile rankings indicate better function/quality of life. 50th percentile is the average of the general population and indicates half of respondents had a worse score. OBJECTIVE MEASURES WITH LEVEL OF FUNCTION: LE AROM R LE AROM: WNL L LE AROM: WNL R Ankle Dorsiflexion: 20 Degrees R Ankle Plantar Flexion: 67 Degrees LE Strength R LE Strength: Grossly 5/5 L LE Strength: Grossly 5/5 Gait Gait Observation: WNL Stairs: WNL R gastrocnemius flexibility is WNL TREATMENT: Neuromuscular Re-Education: 1: All objective measures taken 2: SL stance 3 x 30 sec 3: F/B taps on tilt board x 20 4: Balancing on tilt board 2 x 30 sec 5: F step-up on BOSU x 12 with opp hip october 6: F stepping over hurdles, backwards stepping over hurdles, and side stepping over hurdles (x5 hurdles at parallal bars without UE support) x 4 each direction Skilled Intervention: Skilled judgment used to assess appropriate program for balance and coordination activity. Ensured patient safety with use of parallel bars and SBA Billing Neuromuscular Re-Education Treatment Minutes: 40 Skilled Treatment Time Minutes (timed and untimed codes): 40 Total Session Time (minutes): 40 Session Start Time : 742 Session Stop Time : 822 Michele Monteiro PT documented in this encounter [facility] 01-17-2025 Note [facility] 01-17-2025 History of Present illness Narrative Episode Visit Count: 4 Therapist That Will Accept/Oversee The Plan Of Care: Michele Monteiro PT Start of Care Date: 12/21/24 Onset Date: 11/04/24 Plan of Care Certification Date: 07/08/19 Next Certification Due Date: 09/02/19 Patient Identified by Name and Date of : Yes REHABILITATION AND SPORTS THERAPY PHYSICAL THERAPY TREATMENT NOTE ASSESSMENT: Chris Ricardo tolerated the session with expected muscle soreness. She demonstrated good form with all therapeutic exercises. The patient will continue to benefit from ongoing skilled physical therapy to progress toward set goals. PLAN FOR NEXT VISIT: Continue with stability training. SUBJECTIVE: The ankle is stiff. A little sore too. 4 sets of the exercises feels too muvh. Pain: Pain Pain Location: Ankle - Right Description: Stiffness, Sore OBJECTIVE MEASURES WITH LEVEL OF FUNCTION: Able to hold SL stance for 30 sec RLE TREATMENT: Therapeutic Exercise: 1: SciFit x 5 min, seat # 11, no resistance. (1:1 time spent and subjective taken) 2: Squats x 12 3: SL heel raise x 20 Skilled Intervention: Patient was educated in proper exercise technique and purpose for exercises. Neuromuscular Re-Education: 1: Tandem stance 2 x 30 sec 2: Tandem stance with CCW/CW x 8 each 3: Tandem walking in parallel bars x 12 feet x 4 4: SL balance 2 x 30 sec 5: Lateral stepping over BOSU x 10 Skilled Intervention: Skilled judgment used to assess appropriate program for balance and coordination activity. Billing Therapeutic Exercise Treatment Minutes: 14 Neuromuscular Re-Education Treatment Minutes: 24 Skilled Treatment Time Minutes (timed and untimed codes): 38 Total Session Time (minutes): 38 Session Start Time : 745 Session Stop Time : 823 Michele Monteiro PT documented in this encounter [facility] 01-10-2025 History of Present illness Narrative Program_ID:[id number] Access Code: [email or web address] URL: [email or web address] Date: 01-10-2025 Prepared By: Michele Monteiro Program Notes Exercises - Seated Calf Stretch with Strap - 1 x daily - 7 x weekly - 4 sets - 1 reps - Long Sitting Ankle Eversion with Resistance - 1 x daily - 7 x weekly - 4 sets - 10-12 reps - Single Leg Heel Raise - 1 x daily - 7 x weekly - 4 sets - 20-25 reps - Standing Tandem Balance with Counter Support - 1 x daily - 7 x weekly - 4 sets - reps - Mini Squat with Counter Support - 2-3 x daily - 7 x weekly - 2 sets - 10 reps Episode Visit Count: 3 Therapist That Will Accept/Oversee The Plan Of Care: Michele Monteiro PT Start of Care Date: 12/21/24 Onset Date: 11/04/24 Plan of Care Certification Date: 07/08/19 Next Certification Due Date: 09/02/19 Patient Identified by Name and Date of : Yes REHABILITATION AND SPORTS THERAPY PHYSICAL THERAPY TREATMENT NOTE ASSESSMENT: Chris Ricardo tolerated the session with fatigue and expected muscle soreness. She demonstrated improvements in tolerance to ankle stability exercises. The patient will continue to benefit from ongoing skilled physical therapy to progress toward set goals. PLAN FOR NEXT VISIT: Continue with ankle stability. SUBJECTIVE: Pt reports that her ankle is feeling good today. Pt states that her ankle was swollen and hurting some after last session. Pain: Pain Pain Level: 0 Pain Location: Ankle - Right OBJECTIVE MEASURES WITH LEVEL OF FUNCTION: Increased difficulty with inversion vs. Eversion of R ankle TREATMENT: Therapeutic Exercise: 1: SciFit x 5 min, seat # 11, no resistance. (1:1 throughout. Discussed current HEP and decreasing frequency and reps of SL heel raises) 2: Step downs on 4 inch step x10 RLE 3: Step downs on 6 inch step x10 RLE 4: PWB BAPS board, hemisphere #3, 2x10: PF/DF, INV/EV, CW and CCW (felt it more with CW) 5: Squats 2x10 (lmited DF on R compared to L) Skilled Intervention: Patient was educated in proper exercise technique and purpose for exercises. Reviewed and educated patient on additions/changes for home exercise program as above (*). Skilled judgment was used in selection of appropriate interventions. Provided written instruction for home exercise program to facilitate proper performance and compliance. Correct performance of therapeutic exercises was facilitated with verbal and visual cuing. Neuromuscular Re-Education: 1: Step ups on BOSU 2x10 RLE 2: Lateral step ups on BOSU 2x10 B 3: R SLS 1x18 seconds, 1x 21 seconds 4: Tilt board front to back taps x20 each Skilled Intervention: Skilled judgment used to assess appropriate program for balance and coordination activity. Billing Therapeutic Exercise Treatment Minutes: 23 Neuromuscular Re-Education Treatment Minutes: 16 Skilled Treatment Time Minutes (timed and untimed codes): 39 Total Session Time (minutes): 39 Session Start Time : 839 Session Stop Time : 918 GEORGE Bravo, PT, DPT. documented in this encounter [facility] 01-10-2025 Note [facility] 01-07-2025 Note [facility] 01-07-2025 History of Present illness Narrative Chief Complaint Patient presents with: Follow Up HPI Chris Ricardo is a 64 year old female who presents here today for continued left ear pain. Patient was seen on 01/03/2025 for left ear pain Patient was seen by PA on 12/07/2024 for left ear pain and was advised on use of Flonase. She seen ENT for maribell test on 12/13/2024 and the PA checked it out and agreed it looked ok except fro some fluid behind the TM and advised to continue the Flonase. It did get better and then came back with also a dull ache on the right. She saw a TRACK HOE OPERATOR on 01/2025 and was placed on Amoxil. The right ear discomfort has stopped but the left is no better and seems worse. Still gets the sporadic sharp pains at times. No ear drainage, no sudden change in hearing on the left. Has not been congested. No post nasal drainage or sore throat, facial pain, fevers, chills. No changes in her usual cough. Past medical history, appointments, medications, allergies reviewed. Previous Medical History PAST MEDICAL HISTORY Diagnosis Date Abnormal mole AK (actinic keratosis) 10/17/2020 Ankle instability, left 06/08/2019 Arrhythmogenic right ventricular cardiomyopathy (HCC) 08/07/2023 Bee sting allergy 04/05/2020 Benign neoplasm of colon 04/16/2010 Tubular adenoma 04/16/12 Cataracts, bilateral 03/2020 Chronic constipation 06/13/2022 Chronic heart failure with preserved ejection fraction (HFpEF) (HCC) 08/07/2023 Chronic left shoulder pain 05/28/2018 Compound nevus 11/27/2020 Abd LLQ removed 11/2020 Congestive heart failure (HCC) 10/09/[address] Alcala: stage 2 Constipation Depression with anxiety 07/09/2017 Situational, Managed by Counseling. Diffuse cystic mastopathy Elevated blood sugar 05/01/2023 Encounter for gynecological examination 05/01/2023 Essential hypertension Family history of breast cancer 07/04/2016 Family history of malignant neoplasm of breast 05/07/2007 2 maternal aunts History of COVID-19 03/25/202201/2022 Insomnia, unspecified rare Left shoulder pain 03/11/2011 Low testosterone level in female 2010 Mixed hyperlipidemia 2006 was on simvastatin, was able to come off med. Nonrheumatic tricuspid valve regurgitation 01/31/2022 Osteopenia ++FHx osteoporosis Peroneal tendinitis of left lower extremity 08/27/2017 Personal history of colonic polyps 04/21/2013 tubular adenoma. 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 Tucker and Dr. Alcala: Cardiomyopathy. Had cardiac arrest, has a pace maker/defibulator. Is limited to what exercising she can do. Plantar fasciitis of left foot 08/27/2017 Plantar fasciitis of right foot 07/18/2016 Presence of combination internal cardiac defibrillator (ICD) and pacemaker 01/14/2017 Ptosis, left eyelid benign PTSD (post-traumatic stress disorder) 08/13/2018 Tinnitus, bilateral 10/23/2023 Unspecified closed fracture of ankle 2000 Ankle fracture left [place], [place] Urge incontinence Previous Surgical History PAST SURGICAL HISTORY Procedure Laterality Date APPENDECTOMY 1970 [place], [place] BLEPHAROPLASTY, UPPER EYELID Left 2017 BREAST BIOPSY 2006 left breast ([facility]) CARDIAC CATH 01/05/2017 normal COLONOSCOPY 04/27/2013 normal, repeat in 5 yrs d/t pers hx polyps and poss fam hx gi malignancy COLONOSCOPY 05/04/2018 repeat 10 yrs, Dr. Hatfield COLSC FLX W/RMVL OF TUMOR POLYP LESION SNARE TQ 04/16/2010 tubular adenoma at 70cm DILATION & CURETTAGE DX&/THER NONOBSTETRIC 09/2008 Dilation & curettage, Uterine Ablation with Novasure LEAD,PACEMAKER/DEFIB COMBO 01/06/2017 NOVASURE 09/2008 PRK Bilateral 01/2002 in [place] RADIOFREQUENCY ABLATION 01/03/2017 TONSILLECTOMY PRIMARY/SECONDARY <AGE 12 1970 [place]onsillectomy [place], [place] Family History FAMILY HISTORY Problem Relation Age of Onset Hypertension Mother dx age 30's Headache Mother Osteoporosis Mother Cataract Mother Lipids Mother Dementia Mother Alzheimer's Disease Father first symptoms around 70 Diabetes Father late 70's Hypertension Father Lipids Father Arthritis Father Cataract Father Osteoporosis Sister other (Abdominal Aortic Aneurysm) Maternal Grandmother Diabetes Paternal Grandmother Cancer Paternal Grandfather unknown Skin Cancer Daughter Breast Cancer Maternal Aunt x2 other (Abdominal Aortic Aneurysm) Maternal Aunt x2 Osteoporosis Maternal Aunt Osteoporosis Maternal Aunt Osteoporosis Maternal Aunt Osteoporosis Maternal Aunt other (Abdominal Aortic Aneurysm) Maternal Uncle Osteoporosis Maternal Uncle Osteoporosis Maternal Uncle Osteoporosis Maternal Uncle Osteoporosis Maternal Uncle Colon Cancer Other none other (cousin of blood clot; had dm, af and etoh) Other Patient Allergies ALLERGIES Allergen Reactions Bee Sting Swelling Omeprazole Other: See Comments vivid dreams Current Medications Current Outpatient Medications on File Prior to Visit Medication Sig amoxicillin (AMOXIL) 875 mg tablet Take 1 tablet by mouth two times a day for 7 days. fluticasone propionate (FLONASE NASAL) Use in the nose two times a day. EPINEPHrine (AUVI-Q) 0.3 mg/0.3 mL auto-injector Inject 0.3 mL intramuscularly as needed. Carboxymethylcellulose-Glycern (OPTIVE) 0.5-0.9 % drop Use 1 Drop in both eyes as needed. atorvastatin (LIPITOR) 10 mg tablet Take 1 tablet by mouth daily at bedtime. For cholesterol. empagliflozin (JARDIANCE) 10 mg tablet Take 1 tablet by mouth daily with breakfast. furosemide (LASIX) 40 mg tablet Take 1 tablet by mouth once daily. metoprolol succinate ER (TOPROL XL) 25 mg 24 hr tablet Take 1.5 tablets by mouth once daily. L. acidophilus/Bifid. animalis (PROBIOTIC) 5 billion cell cpSP Take 1 capsule by mouth once daily. glucosamine/chondr barrera A sod (OSTEO BI-FLEX ORAL) Take by mouth once daily. CALCIUM-VITAMIN D3 ORAL Take by mouth. 1200 calcium- 1000 units D3 (2) tablets twice daily acetaminophen (TYLENOL) 500 mg tablet Take 500 mg by mouth every 6 hours as needed. multivitamin ORAL tablet Take 1 tablet by mouth once daily. aspirin 81 mg ORAL Chew Take one(1) tablet daily. No current facility-administered medications on file prior to visit. Social History Social History Tobacco Use Smoking status: Former Current packs/day: 0.00 Average packs/day: 0.5 packs/day for 10.0 years (5.0 ttl pk-yrs) Types: Cigarettes Start date: 08/04/1978 Quit date: 08/04/1988 Years since quittin.4 Passive exposure: Never Smokeless tobacco: Never Tobacco comments: quit 32 years ago Vaping Use Vaping status: Never Used Substance Use Topics Alcohol use: No Drug use: No Review of Symptoms REVIEW OF SYSTEMS SEE HPI EXAM: BP 108/70 Pulse 60 Resp 16 Wt 73.9 kg (163 lb) LMP 09/29/2008 BMI 27.12 kg/m General Appearance: Well appearing, alert, in no acute distress, well-hydrated, well nourished.. Eyes: Anicteric sclera. Pupils are equally round and reactive to light. Extraocular movements are intact. . Ears: External ears normal, canals clear, the right TM ws normal with good light reflex and insufflated. The left TM is more opaque and you can not see the bones behind it, the light reflex is decreased and insufflation was poor. . Nose/Sinuses: Nares normal, septum midline, mucosa normal, no drainage or sinus tenderness. Oropharynx: Lips, mucosa, and tongue normal, teeth and gums normal, oropharynx normal. Neck: Supple, no adenopathy; thyroid symmetric, normal size, no bruits. Lungs: Lungs clear to auscultation. No wheezing, rhonchi, rales.. Health Maintenance List Mammogram Screening due on 11/26/2025 Cervical Cancer Screening due on 11/26/2025 Annual PCP Team Chronic Disease Visit due on 01/03/2026 BP Controlled (<130/80) due on 01/03/2026 Pneumococcal Vaccine: 50+(3 of 3 - PCV20 or PCV21) due on 04/19/2026 Diabetes Screening due on 11/11/2027 Colorectal Cancer Screening due on 05/04/2028 Lipid Screening due on 11/10/2029 DTaP,Tdap,Td Vaccine(4 - Td or Tdap) due on 07/08/2033 Influenza Vaccine Completed RSV Vaccine Completed Hepatitis C Screening Completed Shingrix Vaccine Completed Covid-19 Vaccine Completed HIV Screening Discontinued Data reviewed Assessment and Plan ASSESSMENT/PLAN: 1. Acute serous otitis media of left ear, recurrence not specified - ICD9: 381.01, ICD10: H65.02 (primary diagnosis) - will change the amoxil to Augmenting 875 mg twice a day for 10 days 2. Eustachian tube disorder, left - ICD9: 381.9, ICD10: H69.92 - will place on prednisone 40 mg a day for 6 days. If not resolving will need to see ENT to determine if ear tub needs placed. Requested Prescriptions Signed Prescriptions Disp Refills amoxicillin-clavulanate potassium (AUGMENTIN) 875-125 mg per tablet 20 tablet 0 Sig: Take 1 tablet by mouth every 12 hours for 10 days. predniSONE (DELTASONE) 20 mg tablet 12 tablet 0 Sig: Take 2 tablets by mouth once daily for 6 days. Alton Eisenberg MD documented in this encounter [facility] 01-07-2025 Telephone encounter Note Spoke with patient and scheduled. Kylah Razo MA [facility] 01-07-2025 Miscellaneous Notes Spoke with patient and scheduled. Kylah Razo MA documented in this encounter [facility] 01-04-2025 Telephone encounter Note Patient notified and would like to stay with current treatment. Patient voiced another concern. She had her PAP completed and this was her first abnormal PAP. She was told to follow up again in 1 year. She is concerned because that the COLLEGE SCOUTING COORDINATOR are knowledgeable however she feels they are more focused on childbearing women and not women who are menopause or post menopause. She indicated that next year she will be finding a new COLLEGE SCOUTING COORDINATOR doctor who is more focused on older women and their concerns. She is wanting your opinion if she should be getting second opinion on her abnormal PAP. Kylah Razo MA [facility] 01-04-2025 Miscellaneous Notes Patient notified and would like to stay with current treatment. Patient voiced another concern. She had her PAP completed and this was her first abnormal PAP. She was told to follow up again in 1 year. She is concerned because that the COLLEGE SCOUTING COORDINATOR are knowledgeable however she feels they are more focused on childbearing women and not women who are menopause or post menopause. She indicated that next year she will be finding a new COLLEGE SCOUTING COORDINATOR doctor who is more focused on older women and their concerns. She is wanting your opinion if she should be getting second opinion on her abnormal PAP. Kylah Razo MA Let patient know the DXA scan showed only a decrease of 0.1 at the lumbar spine and left hip. Still only osteopenia. We can continue the current Tx plan and recheck the DXA in 2 years or add on once a week fosamax for the next 5 years? documented in this encounter [facility] 01-03-2025 Telephone encounter Note Let patient know the DXA scan showed only a decrease of 0.1 at the lumbar spine and left hip. Still only osteopenia. We can continue the current Tx plan and recheck the DXA in 2 years or add on once a week fosamax for the next 5 years? [facility] 01-03-2025 Note [facility] 01-03-2025 History of Present illness Narrative Chief Complaint Patient presents with: Ear Problem: Left Ear pain X 5 days HPI Chris Ricardo is a 64 year old female who presents here today for Above Complaints. L ear ache for 2 months, got better with flonase, then started to get worse about 2 weeks age. She has shooting L ear pain with burping/ coughing, feels like it needs to pop, worse when she lays down. She is starting to notice dull ache in R ear. She has dizziness when changing position. Ongoing dry nonproductive cough. Denies headaches. Denies recent illnesses. Recent ENT visit, no changes in hearing noted. Past medical history, appointments, medications, allergies reviewed. Previous Medical History PAST MEDICAL HISTORY Diagnosis Date Abnormal mole AK (actinic keratosis) 10/17/2020 Ankle instability, left 06/08/2019 Arrhythmogenic right ventricular cardiomyopathy (HCC) 08/07/2023 Bee sting allergy 04/05/2020 Benign neoplasm of colon 04/16/2010 Tubular adenoma 04/16/12 Cataracts, bilateral 03/2020 Chronic constipation 06/13/2022 Chronic heart failure with preserved ejection fraction (HFpEF) (HCC) 08/07/2023 Chronic left shoulder pain 05/28/2018 Compound nevus 11/27/2020 Abd LLQ removed 11/2020 Congestive heart failure (HCC) 10/09/[address] Alcala: stage 2 Constipation Depression with anxiety 07/09/2017 Situational, Managed by Counseling. Diffuse cystic mastopathy Elevated blood sugar 05/01/2023 Encounter for gynecological examination 05/01/2023 Essential hypertension Family history of breast cancer 07/04/2016 Family history of malignant neoplasm of breast 05/07/2007 2 maternal aunts History of COVID-19 03/25/202201/2022 Insomnia, unspecified rare Left shoulder pain 03/11/2011 Low testosterone level in female 2010 Mixed hyperlipidemia 2006 was on simvastatin, was able to come off med. Nonrheumatic tricuspid valve regurgitation 01/31/2022 Osteopenia ++FHx osteoporosis Peroneal tendinitis of left lower extremity 08/27/2017 Personal history of colonic polyps 04/21/2013 tubular adenoma. 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 Tucker and Dr. Alcala: Cardiomyopathy. Had cardiac arrest, has a pace maker/defibulator. Is limited to what exercising she can do. Plantar fasciitis of left foot 08/27/2017 Plantar fasciitis of right foot 07/18/2016 Presence of combination internal cardiac defibrillator (ICD) and pacemaker 01/14/2017 Ptosis, left eyelid benign PTSD (post-traumatic stress disorder) 08/13/2018 Tinnitus, bilateral 10/23/2023 Unspecified closed fracture of ankle 2000 Ankle fracture left [place], [place] Urge incontinence Previous Surgical History PAST SURGICAL HISTORY Procedure Laterality Date APPENDECTOMY 1971 [place], [place] BLEPHAROPLASTY, UPPER EYELID Left 2016 BREAST BIOPSY 2006 left breast ([facility]) CARDIAC CATH 01/05/2017 normal COLONOSCOPY 04/27/2013 normal, repeat in 5 yrs d/t pers hx polyps and poss fam hx gi malignancy COLONOSCOPY 05/04/2018 repeat 10 yrs, Dr. Hatfield COLSC FLX W/RMVL OF TUMOR POLYP LESION SNARE TQ 04/16/2010 tubular adenoma at 70cm DILATION & CURETTAGE DX&/THER NONOBSTETRIC 09/2008 Dilation & curettage, Uterine Ablation with Novasure LEAD,PACEMAKER/DEFIB COMBO 01/06/2017 NOVASURE 09/2008 PRK Bilateral 01/2002 in [place] RADIOFREQUENCY ABLATION 01/03/2017 TONSILLECTOMY PRIMARY/SECONDARY <AGE 12 1970 [place]illectomy [place], [place] Family History FAMILY HISTORY Problem Relation Age of Onset Hypertension Mother dx age 30's Headache Mother Osteoporosis Mother Cataract Mother Lipids Mother Dementia Mother Alzheimer's Disease Father first symptoms around 70 Diabetes Father late 70's Hypertension Father Lipids Father Arthritis Father Cataract Father Osteoporosis Sister other (Abdominal Aortic Aneurysm) Maternal Grandmother Diabetes Paternal Grandmother Cancer Paternal Grandfather unknown Skin Cancer Daughter Breast Cancer Maternal Aunt x2 other (Abdominal Aortic Aneurysm) Maternal Aunt x2 Osteoporosis Maternal Aunt Osteoporosis Maternal Aunt Osteoporosis Maternal Aunt Osteoporosis Maternal Aunt other (Abdominal Aortic Aneurysm) Maternal Uncle Osteoporosis Maternal Uncle Osteoporosis Maternal Uncle Osteoporosis Maternal Uncle Osteoporosis Maternal Uncle Colon Cancer Other none other (cousin of blood clot; had dm, af and etoh) Other Patient Allergies ALLERGIES Allergen Reactions Bee Sting Swelling Omeprazole Other: See Comments vivid dreams Current Medications Current Outpatient Medications on File Prior to Visit Medication Sig fluticasone propionate (FLONASE NASAL) Use in the nose two times a day. EPINEPHrine (AUVI-Q) 0.3 mg/0.3 mL auto-injector Inject 0.3 mL intramuscularly as needed. Carboxymethylcellulose-Glycern (OPTIVE) 0.5-0.9 % drop Use 1 Drop in both eyes as needed. atorvastatin (LIPITOR) 10 mg tablet Take 1 tablet by mouth daily at bedtime. For cholesterol. empagliflozin (JARDIANCE) 10 mg tablet Take 1 tablet by mouth daily with breakfast. furosemide (LASIX) 40 mg tablet Take 1 tablet by mouth once daily. metoprolol succinate ER (TOPROL XL) 25 mg 24 hr tablet Take 1.5 tablets by mouth once daily. L. acidophilus/Bifid. animalis (PROBIOTIC) 5 billion cell cpSP Take 1 capsule by mouth once daily. glucosamine/chondr barrera A sod (OSTEO BI-FLEX ORAL) Take by mouth once daily. CALCIUM-VITAMIN D3 ORAL Take by mouth. 1200 calcium- 1000 units D3 (2) tablets twice daily acetaminophen (TYLENOL) 500 mg tablet Take 500 mg by mouth every 6 hours as needed. multivitamin ORAL tablet Take 1 tablet by mouth once daily. aspirin 81 mg ORAL Chew Take one(1) tablet daily. No current facility-administered medications on file prior to visit. Social History Social History Tobacco Use Smoking status: Former Current packs/day: 0.00 Average packs/day: 0.5 packs/day for 10.0 years (5.0 ttl pk-yrs) Types: Cigarettes Start date: 08/04/1978 Quit date: 08/04/1988 Years since quittin.4 Passive exposure: Never Smokeless tobacco: Never Tobacco comments: quit 32 years ago Vaping Use Vaping status: Never Used Substance Use Topics Alcohol use: No Drug use: No Review of Symptoms REVIEW OF SYSTEMS See HPI EXAM: BP 108/69 Pulse 64 Wt 74 kg (163 lb 2.3 oz) LMP 09/29/2008 BMI 27.15 kg/m General Appearance: Well appearing, alert, in no acute distress, well-hydrated, well nourished.. Ears: Positive findings: L TM: dull. Lungs: Lungs clear to auscultation. No wheezing, rhonchi, rales.. Heart: RRR without murmur, gallop, or rubs. No ectopy. Health Maintenance List Mammogram Screening due on 11/26/2025 Cervical Cancer Screening due on 11/26/2025 Annual PCP Team Chronic Disease Visit due on 12/07/2025 BP Controlled (<130/80) due on 12/07/2025 Pneumococcal Vaccine: 50+(3 of 3 - PCV20 or PCV21) due on 04/19/2026 Diabetes Screening due on 11/11/2027 Colorectal Cancer Screening due on 05/04/2028 Lipid Screening due on 11/10/2029 DTaP,Tdap,Td Vaccine(4 - Td or Tdap) due on 07/08/2033 Influenza Vaccine Completed RSV Vaccine Completed Hepatitis C Screening Completed Shingrix Vaccine Completed Covid-19 Vaccine Completed HIV Screening Discontinued ASSESSMENT/PLAN: 1. Acute otitis media, left - ICD9: 382.9, ICD10: H66.92 - Will begin treatment with as per antibiotic as written, see orders - The patient should also be given OTC decongestants prn for the first 5-7 days of treatment. - Supportive care with plenty of fluids, rest, and analgesia prn. - Follow up in 3-5 days if symptoms persist or worsen. - AMOXICILLIN 875 MG TABLET If ATB not effective, would recommend advanced imaging to r/o structural abnormalities due to length and recurrence of symptoms. Chanel Gardner APRN.[employer] documented in this encounter [facility] 01-03-2025 History of Present illness Narrative Program_ID:[id number] Access Code: [email or web address] URL: [email or web address] Date: 01-03-2025 Prepared By: Michele Monteiro Program Notes Exercises - Seated Calf Stretch with Strap - 1 x daily - 7 x weekly - 4 sets - 1 reps - Long Sitting Ankle Eversion with Resistance - 1 x daily - 7 x weekly - 4 sets - 10-12 reps - Single Leg Heel Raise - 1 x daily - 7 x weekly - 4 sets - 20-25 reps - Standing Tandem Balance with Counter Support - 1 x daily - 7 x weekly - 4 sets - reps Episode Visit Count: 2 Therapist That Will Accept/Oversee The Plan Of Care: Michele Monteiro PT Start of Care Date: 12/21/24 Onset Date: 11/04/24 Plan of Care Certification Date: 07/08/19 Next Certification Due Date: 09/02/19 Patient Identified by Name and Date of : Yes REHABILITATION AND SPORTS THERAPY PHYSICAL THERAPY TREATMENT NOTE ASSESSMENT: Chris Ricardo tolerated the session with expected muscle soreness. She demonstrated good tolerance to all therapeutic exercises. The patient will continue to benefit from ongoing skilled physical therapy to progress toward set goals. PLAN FOR NEXT VISIT: Could add squats to the HEP on BOSU SUBJECTIVE: The exercises are going well. She forgot to log some of her exercises. She can now go down the stairs alternating feet. Some discomfort on the side of the ankle and it gets better as she walks. Pain: Pain Pain Level: 0 Pain Location: Ankle - Right OBJECTIVE MEASURES WITH LEVEL OF FUNCTION: LE AROM R Ankle Dorsiflexion: 20 Degrees Gait is WNL TREATMENT: Therapeutic Exercise: 1: SciFit x 5 min (1:1 time spent and constant motion encouraged) 2: SL heel raises 2 x 17 Skilled Intervention: Patient was educated in proper exercise technique and purpose for exercises. Correct performance of therapeutic exercises was facilitated with verbal cuing. Neuromuscular Re-Education: 1: Tandem stance (RLE back) 3 x 30 sec 2: Tandem stance (RLE back) on pad 3 x 30 sec 3: f/b TILT BOARD 3 X 20 taps 4: Lateral stepping over BOSU 2 x 10 R and L (VC's for a sloweer speed) Skilled Intervention: Skilled judgment used to assess appropriate program for balance and coordination activity. Ensured patient safety with use of Supervision Billing Therapeutic Exercise Treatment Minutes: 10 Neuromuscular Re-Education Treatment Minutes: 30 Skilled Treatment Time Minutes (timed and untimed codes): 40 Total Session Time (minutes): 40 Session Start Time : 736 Session Stop Time : 816 Michele Monteiro PT documented in this encounter [facility] 01-03-2025 Note [facility] 12-30-2024 History of Present illness Narrative Radiology Service Progress Note PATIENT NAME: Chris Ricardo DATE OF SERVICE: December 30, 2024 TIME: 8:54 AM PATIENT IDENTITY VERIFICATION COMPLETED USING TWO (2) IDENTIFIERS: Name and Date of confirmed by patient verbally. FALL SCREENING: Has the patient had 2 falls in the last year or 1 fall with injury or currently using an Ambulatory Assistive Device (Walker, Cane, Wheelchair, Crutches, etc.)? No PATIENT GENDER DATA: Assigned female at . status: : No status: NO. PATIENT RELEVANT IMPLANT DATA REVIEWED: Not Applicable PATIENT PRESENTS WITH AN IMPLANTABLE OR ATTACHED AIR INTERCEPT CONTROLLER: No RADIOLOGY DEPARTMENT: Bone Density PERIPHERAL IV DATA: Not applicable SIGNED BY: RT Marta(R) December 30, 2024 8:54 AM documented in this encounter [facility] 12-30-2024 Note [facility] 12-21-2024 Note [facility] 12-21-2024 Note [facility] 12-21-2024 Note [facility] 12-21-2024 Note HNO ID: [id number] Author: ELIEZER EARL MA Service: ? Author Type: Pulmonary Fellow Type: Progress Notes Filed: 12/21/2024 09:24 Note Text: Patient presents with: 6 weeks 5 days post fracture right ankle AMB ROOMING INTAKE FLOWSHEET DATA [facility] 12-21-2024 Note [facility] 12-13-2024 Instructions Reymundo Clayton PA-C - 12/13/2024 8:43 AM EDT Please reach out to your health insurance provider to determine if you 1) Have a hearing aid benefit and if you do, 2) Where you can go that is in-network. Call [phone] to schedule a Hearing Aid Evaluation to assess the need for hearing devices; request a Hearing Aid Evaluation (HAE) appointment. There is a $100 fee due at time of service for a Hearing Aid Evaluation. What is tinnitus? Tinnitus is a condition in which you hear noises when there is no outside source of the sounds. The noises can have many different qualities (ringing, clicking, buzzing, roaring, whistling, or hissing) and can be soft or loud. Usually, only the person experiencing the tinnitus can hear the sounds. Tinnitus can occur either with or without hearing loss, and can be perceived in one or both ears or in the head. Approximately 50 million Americans have some form of tinnitus. For most people, the sensation usually lasts only a few minutes at a time. About 12 million people have constant or recurring tinnitus that interferes with their daily life so much that they seek professional treatment. For these individuals, tinnitus may result in a loss of sleep, interfere with concentration, and create negative emotional reactions such as despair, frustration, and depression. People of any age can suffer from tinnitus, although it does not typically occur in children. Children with tinnitus should be evaluated for hearing loss or other underlying cause. What causes tinnitus? Although tinnitus often has no specific cause, the most common identifiable causes of tinnitus include the following: - hearing loss - exposure to loud noises - head injury - medication side effects - high or low blood pressure - wax buildup in the ear canal - fluid buildup behind the eardrum - problems of the heart, blood vessels, neck, jaw, or teeth Your doctor will try to determine what is causing the condition. If it is not due to a medication side effect or a general medical condition (such as high blood pressure), he or she may refer you to an control valve mechanic (an ear, nose, and throat doctor) or an check and transfer beader (speech and hearing clinic director). It is especially important to see an control valve mechanic if you experience tinnitus in only one ear, tinnitus that sounds like your heartbeat or pulse (pulsatile tinnitus), tinnitus with sudden or fluctuating hearing loss, pressure or fullness in one or both ears, and/or dizziness or balance problems. Unless the cause of the tinnitus is obvious on physical examination, a hearing test is usually required. What is the treatment for tinnitus? Learning the cause of tinnitus is often the most important step to determining treatment options. In many cases there are no medical or surgical treatments for tinnitus; however, there are management strategies that can provide some relief. Treatment options for tinnitus include the following: - Hearing aids. Many people who have tinnitus also have hearing loss. Hearing aids may help provide relief from tinnitus by making it less noticeable. This is done by increasing the background noise level. Another benefit of hearing aids is that they improve communication by increasing incoming speech sounds. - Sound generators. These adjustable ear-level devices produce a broadband sound (pleasant shower-like sound) that is delivered directly to the ear. These devices help people pay less attention to their tinnitus by masking it with other sounds. Sound generators are also used for tinnitus retraining therapy. (This therapy combines individualized counseling with use of sound generators.) - Combination instruments. A hearing aid and sound generator can be housed in a single unit. These units are best for people who need hearing aids and may benefit from the use of sound generators. - Environmental enrichment devices. A variety of umjucx-oh-fny devices can be used to increase the level of background sound in order to decrease the perception of tinnitus. These include tabletop sound machines that can generate different types of sounds (for example, rain, wind, waterfalls), CD/mp3 recordings of music and/or nature/environmental sounds and apps specifically created for tinnitus relief that can be used with smartphones or tablets. - Neuromonics. A pleasant acoustic signal (embedded in music) is delivered to the ear through high fidelity earphones and a small credit-card size processor. This form of music therapy is a very pleasant alternative to other types of sound therapy and requires at least 6 months of active treatment time. The music also tends to further improve relaxation, which helps people cope with their tinnitus. - Relaxation techniques. Many people who have tinnitus find that it worsens when they are under stress. Learning techniques to increase relaxation and ease stress can help people better deal with the frustrations of tinnitus. - Other options. Cognitive behavioral or acceptance therapy with a psychologist can help people learn ways to limit the attention given to tinnitus and also help them better manage the stress and anxiety resulting from the tinnitus. Management of a temporomandibular disorder (TMD) (the area where the lower jaw and skull meet) by a dentist may be of value in helping to control dental issues, such teeth clenching and grinding, which are associated with tinnitus. An examination by a physical therapist may identify problems with the movement of the head, neck and jaw that can contribute to tinnitus. Follow-up physical therapy can help restore the proper movement of the neck and jaw and improve posture, which may reduce the severity of tinnitus. Certain behaviors can make tinnitus worse and should be avoided whenever possible. These include: - Smoking or using other tobacco products - Drinking alcohol - Exposure to loud noises and sounds (If you work in a loud setting, wear earplugs to protect your hearing.) References [employer] - Head and Neck [employer]. Tinnitus Accessed 11/08/2013. [place] T[employer]. Tinnitus Accessed 11/08/2013. [employer]. Tinnitus: Ringing in Your Ears Accessed 11/08/2013. National [facility] on Deafness and Other Communication Disorders (NIDCD). Tinnitus Accessed 11/08/2013. Copyright 1814-2148 [facility]. All rights reserved documented in this encounter [facility] 12-13-2024 Note [facility] 12-13-2024 History of Present illness Narrative Images from the original note were not included. [facility] FOLLOW-UP [facility]IN[facility] NOTE CC: Ms. Ricadro is a 64 year old female who comes in for follow up. Patient was last seen on 10/23/2023 with plan of care: ASSESSMENT: Sensorineural hearing loss (snhl) of both ears (primary encounter diagnosis) History of exposure to noise Tinnitus of both ears PLAN: - Discussed results of hearing test with patient; all patient questions answered - Educated patient on tinnitus and conservative management options; patient education handout provided - Annual hearing test, avoidance of noise exposure, discontinue Qtip use, no foreign objects in ears, hearing protection as needed - Advised patient on red flag warning signs, symptoms that warrant immediate evaluation in ER - Follow up in 12 months with hearing test; sooner if clinically indicated Reymundo Clayton PA-C [facility] ASSESSMENT: History of exposure to noise Tinnitus of both ears Sensorineural hearing loss (snhl) of both ears (primary encounter diagnosis) PLAN: - Discussed results of hearing test with patient; all patient questions answered - Educated patient on tinnitus and conservative management options; patient education handout provided - Annual hearing test, avoidance of noise exposure, discontinue Qtip use, no foreign objects in ears, hearing protection as needed - May continue Flonase; instructed patient on appropriate use, side effects and need for daily adherence to realize benefits - Advised patient on red flag warning signs, symptoms that warrant immediate evaluation in ER - Follow up in 12 months with hearing test; sooner if clinically indicated Reymundo Clayton PA-C [facility] HPI: Since last visit, patient reports she continues to perceive changes in hearing as evidenced by difficulty hearing doorbell if in basement, timer on microwave. Patient reports onset of left aural fullness and otalgia last week, was evaluated by Family Medicine team and treated with Cortisporin otic, Flonase with resolution of symptoms. HPI 10/23/2023: 63 year old female presents to clinic for evaluation of bilateral heairng loss, unspecified hearing loss type. Patient reports decreased hearing over the last few months, left ear worse than right ear. Patient reports she failed hearing screening performed by [employer] in September 2023 and was advised to follow up with Audiology and ENT. Patient reports left ear worse than right ear, notes intermittent high pitched tinnitus bilaterally. Patient reports she will turn on TV with white noise at bedtime. However, patient reports recent switch to music and she has difficulty hearing music. Additionally, patient reports hearing changes have led to her misunderstanding conversation, interpreting conversations out of context. Patient endorses history of ear infections as a child, no PE tubes or previous ear surgeries. 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 Patient endorses history of trauma, Qtip caused TM perforation a few months ago. Patient endorses family history of hearing loss, father likely related to noise exposure and sister likely due to presbycusis. Hearing test today 10/23/2023: IMPRESSIONS RIGHT EAR: Sensorineural hearing loss. LEFT EAR: Sensorineural hearing loss. Comparison of today's results with previous test results (10/23/2023): RIGHT EAR: Today's results reveal no significant change in both ears LEFT EAR: Today's results reveal no significant change in both ears NOTE: A decrease of 20 dB HL at any one test frequency, a decrease of 10 dB HL at any two adjacent test frequencies, or a loss of response at three consecutive frequencies where responses were previously obtained is considered a significant change per JESSICA 1994 guidelines. AUDIOLOGIC EVALUATION Following is a brief interpretation of the obtained findings from the audiologic evaluation. Refer to the Auditory Test Record for complete audiometric results. The patient was counseled about the test findings and appropriate audiologic recommendations were made. SUMMARY: See procedures tab for audiometric results. OTOSCOPY RIGHT EAR: Otoscopic inspection revealed ear canal was clear. LEFT EAR: Otoscopic inspection revealed ear canal was clear. TYMPANOMETRY Description of procedure: This test is an objective evaluation of middle ear function. CPT code: 67520 RIGHT EAR: Normal ME function. LEFT EAR: Normal ME function. ACOUSTIC REFLEXES Description of procedure: This test is an objective measure of auditory and facial nerve pathways. CPT code: 54580, 28586 RIGHT EAR PROBE EAR: (ipsi right stimulus ear; contralateral left stimulus ear): Acoustic Reflex Pattern Did not test. Acoustic Reflex Decay (left stimulus ear): Did not test. LEFT EAR PROBE EAR: (ipsi left stimulus ear; contralateral right stimulus ear): Acoustic Reflex Pattern Did not test. Acoustic Reflex Decay (right stimulus ear): Did not test. PURE TONE AUDIOMETRY AND SPEECH TESTING Description of procedure: This test is an objective evaluation hearing sensitivity via air and bone conduction and speech recognition testing. CPT code: 05571 RIGHT EAR: Hearing Sensitivity: Mild sensorineural hearing loss from 250-1000 Hz rising to normal hearing sensitivity from 1986-8495 Hz. Word Recognition Score: Excellent (90-100%). WRS is consistent with hearing sensitivity. Words were presented at 60 dB HL is above (greater than or equal to 60 dB HL) intensity level for average conversational speech. The NU-6 Ordered by Difficulty Word List (10 words) was used for testing. Contralateral masking was used in the non-test ear. LEFT EAR: Hearing Sensitivity: Mild sensorineural hearing loss rising to normal essentially normal hearing sensitivity from 3662-5896 Hz. Word Recognition Score: Excellent (90-100%). WRS is consistent with hearing sensitivity. Words were presented at 65 dB HL which is above (greater than or equal to 60 dB HL) intensity level for average conversational speech. The NU-6 Ordered by Difficulty Word List (10 words) was used for testing. Contralateral masking was used in the non-test ear. Past medical history: PAST MEDICAL HISTORY Diagnosis Date Abnormal mole AK (actinic keratosis) 10/17/2020 Ankle instability, left 06/08/2019 Arrhythmogenic right ventricular cardiomyopathy (HCC) 08/07/2023 Bee sting allergy 04/05/2020 Benign neoplasm of colon 04/16/2010 Tubular adenoma 04/16/12 Cataracts, bilateral 03/2020 Chronic constipation 06/13/2022 Chronic heart failure with preserved ejection fraction (HFpEF) (HCC) 08/07/2023 Chronic left shoulder pain 05/28/2018 Compound nevus 11/27/2020 Abd LLQ removed 11/2020 Congestive heart failure (HCC) 10/09/[address] Alcala: stage 2 Constipation Depression with anxiety 07/09/2017 Situational, Managed by Counseling. Diffuse cystic mastopathy Elevated blood sugar 05/01/2023 Encounter for gynecological examination 05/01/2023 Essential hypertension Family history of breast cancer 07/04/2016 Family history of malignant neoplasm of breast 05/07/2007 2 maternal aunts History of COVID-19 03/25/202201/2022 Insomnia, unspecified rare Left shoulder pain 03/11/2011 Low testosterone level in female 2010 Mixed hyperlipidemia 2006 was on simvastatin, was able to come off med. Nonrheumatic tricuspid valve regurgitation 01/31/2022 Osteopenia ++FHx osteoporosis Peroneal tendinitis of left lower extremity 08/27/2017 Personal history of colonic polyps 04/21/2013 tubular adenoma. 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 Tucker and Dr. Alcala: Cardiomyopathy. Had cardiac arrest, has a pace maker/defibulator. Is limited to what exercising she can do. Plantar fasciitis of left foot 08/27/2017 Plantar fasciitis of right foot 07/18/2016 Presence of combination internal cardiac defibrillator (ICD) and pacemaker 01/14/2017 Ptosis, left eyelid benign PTSD (post-traumatic stress disorder) 08/13/2018 Tinnitus, bilateral 10/23/2023 Unspecified closed fracture of ankle 2000 Ankle fracture left [place], [place] Urge incontinence Past surgical history: PAST SURGICAL HISTORY Procedure Laterality Date APPENDECTOMY 1971 [place], [place] BLEPHAROPLASTY, UPPER EYELID Left 2017 BREAST BIOPSY 2007 left breast ([facility]) CARDIAC CATH 01/05/2017 normal COLONOSCOPY 04/27/2013 normal, repeat in 5 yrs d/t pers hx polyps and poss fam hx gi malignancy COLONOSCOPY 05/04/2018 repeat 10 yrs, Dr. Liu HALLSC FLX W/RMVL OF TUMOR POLYP LESION SNARE TQ 04/16/2010 tubular adenoma at 70cm DILATION & CURETTAGE DX&/THER NONOBSTETRIC 09/2008 Dilation & curettage, Uterine Ablation with Novasure LEAD,PACEMAKER/DEFIB COMBO 01/06/2017 NOVASURE 09/2008 PRK Bilateral 01/2002 in [place] RADIOFREQUENCY ABLATION 01/03/2017 TONSILLECTOMY PRIMARY/SECONDARY <AGE 12 1970 Tonsillectomy [place], [place] Current medication(s): Current Outpatient Medications Medication Sig fluticasone propionate (FLONASE NASAL) Use in the nose two times a day. EPINEPHrine (AUVI-Q) 0.3 mg/0.3 mL auto-injector Inject 0.3 mL intramuscularly as needed. Carboxymethylcellulose-Glycern (OPTIVE) 0.5-0.9 % drop Use 1 Drop in both eyes as needed. atorvastatin (LIPITOR) 10 mg tablet Take 1 tablet by mouth daily at bedtime. For cholesterol. empagliflozin (JARDIANCE) 10 mg tablet Take 1 tablet by mouth daily with breakfast. furosemide (LASIX) 40 mg tablet Take 1 tablet by mouth once daily. metoprolol succinate ER (TOPROL XL) 25 mg 24 hr tablet Take 1.5 tablets by mouth once daily. L. acidophilus/Bifid. animalis (PROBIOTIC) 5 billion cell cpSP Take 1 capsule by mouth once daily. glucosamine/chondr barrera A sod (OSTEO BI-FLEX ORAL) Take by mouth once daily. CALCIUM-VITAMIN D3 ORAL Take by mouth. 1200 calcium- 1000 units D3 (2) tablets twice daily acetaminophen (TYLENOL) 500 mg tablet Take 500 mg by mouth every 6 hours as needed. multivitamin ORAL tablet Take 1 tablet by mouth once daily. aspirin 81 mg ORAL Chew Take one(1) tablet daily. No current facility-administered medications for this visit. Allergies: ALLERGIES Allergen Reactions Bee Sting Swelling Omeprazole Other: See Comments vivid dreams Social history: Social History Tobacco Use Smoking status: Former Current packs/day: 0.00 Average packs/day: 0.5 packs/day for 10.0 years (5.0 ttl pk-yrs) Types: Cigarettes Start date: 08/04/1978 Quit date: 08/04/1988 Years since quittin.3 Passive exposure: Never Smokeless tobacco: Never Tobacco comments: quit 32 years ago Vaping Use Vaping status: Never Used Substance Use Topics Alcohol use: No Drug use: No Family history: FAMILY HISTORY Problem Relation Age of Onset Hypertension Mother dx age 30's Headache Mother Osteoporosis Mother Cataract Mother Lipids Mother Dementia Mother Alzheimer's Disease Father first symptoms around 70 Diabetes Father late 70's Hypertension Father Lipids Father Arthritis Father Cataract Father Osteoporosis Sister other (Abdominal Aortic Aneurysm) Maternal Grandmother Diabetes Paternal Grandmother Cancer Paternal Grandfather unknown Skin Cancer Daughter Breast Cancer Maternal Aunt x2 other (Abdominal Aortic Aneurysm) Maternal Aunt x2 Osteoporosis Maternal Aunt Osteoporosis Maternal Aunt Osteoporosis Maternal Aunt Osteoporosis Maternal Aunt other (Abdominal Aortic Aneurysm) Maternal Uncle Osteoporosis Maternal Uncle Osteoporosis Maternal Uncle Osteoporosis Maternal Uncle Osteoporosis Maternal Uncle Colon Cancer Other none other (cousin of blood clot; had dm, af and etoh) Other There are no exam notes on file for this visit. ROS: CONSTITUTIONAL: No fevers, chills, nightsweats, unintended weight loss HEAD: - headaches, - head injury EYES: + glasses/contact lens, - changes in vision, - diplopia, - blurry vision, - floaters EARS: + hearing loss, + change in hearing, + tinnitus, + otalgia, - ear pressure, + ear congestion, - otorrhea, - itching, - autophony, + ear infections, - PE tubes NOSE & SINUSES: - nasal congestion, - rhinorrhea, - PND, - epistaxis, - sense of smell, - history of nasal polyps, - sinus trouble, - sinus pressure, - sinus pain MOUTH & THROAT: - soreness, - dryness, - ulcers, - sore throat, - hoarseness, - change in voice, - teeth (caries, dentures, extractions, abscesses) PULM: No dyspnea, unexplained cough CV: No chest pain, shortness of breath, leg swelling, or palpitations GI: No dysphagia/odynophagia, + problematic reflux. No nausea, vomiting, or diarrhea NEURO: + balance problems, + dizziness. No peripheral weakness/paresthesias or numbness PSYCH: + depression, + anxiety PHYSICAL EXAM: GENERAL: 64 year old female is well developed, well nourished, without obvious deformities, in no acute distress COMMUNICATION: The patient speaks with a normal, clear voice without hoarseness. No stridor or stertor. Hearing is grossly normal OVERALL FACIAL APPEARANCE: No obvious scars, lesions, or masses EYES: Extraocular muscles are intact, no diplopia on primary gaze EARS: Externally normal in appearance, without scars, lesions, masses, or tenderness. Right EAC: patent; no swelling, redness, or obstruction R TM: visualized and intact; pearly willett and translucent, landmarks undistorted; no fluid behind TM R Pneumotoscopy: TM is mobile Left EAC: patent; no swelling, redness, or obstruction L TM: visualized and intact; pearly willett and translucent, landmarks undistorted; no fluid behind TM L Pneumotoscopy: TM is mobile NOSE: Externally normal in appearance, without scars, lesions, or masses. Nasal passageways are patent. Septum is midline. ORAL CAVITY AND OROPHARYNX: Teeth are in fair repair and nontender. Uvula midline. Gag reflex intact. NECK: The neck appears symmetric and trachea is midline and mobile. Full range of motion without symptoms. NEURO: Patient is Alert and Oriented to person, place, time, and situation. Cranial nerves II-XII grossly intact RESPIRATORY: Breathing comfortably, no evidence accessory muscle use, no intercostal retractions CV: Strong carotid artery pulse with no bruit RADS: None LABS: Relevant labs were reviewed and discussed with patient. OUTSIDE RECORDS: None PROCEDURE: None Reymundo Clayton PA-C [facility] Medical Decision Making: Problems: Low: Stable chronic illness Data: Unique test result(s) reviewed: 1 Risk: Low: Low risk from testing/treatment Medical Decision Making Level: 3 - Low documented in this encounter [facility] 12-13-2024 History of Present illness Narrative [facility] AUDIOLOGIC EVALUATION REPORT Name: Chris Ricardo CC#: [id number] Date of Service: 12/13/2024 Date of : 1960 Age: [age] year old Referred by: Reymundo Clayton PA-C [id number] [facility] [id number] Referred for: Evaluation of suspected change in hearing, tinnitus, or balance. Referral documented: In an order in [facility]. Patient's major complaints: Reduced hearing in both ears, Pressure/fullness in the left ear Chris Ricardo, a 64 year old female, was seen today for a recheck audiologic evaluation at the request of Reymundo Clayton PA-C prior to appointment with him. The following history was obtained by way of Chris Ricardo's previous medical record and direct patient interview: Today, patient reported: Hearing: Patient perceives a change in hearing. She noticed that she can no longer hear the doorbell if she is her basement. She also can't hear the timer on the microwave beep. Tinnitus: Denied. Dizziness: Patient reports occasional dizziness if she changes positions too quickly. Otalgia: Last week, she had left ear pain, rated at 2-3 out of 10. She went to her PCP and was given drops and Flonase. The pain is resolved. Aural fullness/pressure: She woke up this feeling a little congested with left ear pressure as if her ear needed to pop. She did use Flonase and it seems better now. History of ear infections: Denied. History of otologic surgeries: Denied. 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 Aircraft were taking off and landing throughout the day. History of hearing aid use: Denied. Other Concerns: Denied. IMPRESSIONS RIGHT EAR: Sensorineural hearing loss. LEFT EAR: Sensorineural hearing loss. Comparison of today's results with previous test results (10/23/2023): RIGHT EAR: Today's results reveal no significant change in both ears LEFT EAR: Today's results reveal no significant change in both ears NOTE: A decrease of 20 dB HL at any one test frequency, a decrease of 10 dB HL at any two adjacent test frequencies, or a loss of response at three consecutive frequencies where responses were previously obtained is considered a significant change per JESSICA 1994 guidelines. AUDIOLOGIC EVALUATION Following is a brief interpretation of the obtained findings from the audiologic evaluation. Refer to the Auditory Test Record for complete audiometric results. The patient was counseled about the test findings and appropriate audiologic recommendations were made. SUMMARY: See procedures tab for audiometric results. OTOSCOPY RIGHT EAR: Otoscopic inspection revealed ear canal was clear. LEFT EAR: Otoscopic inspection revealed ear canal was clear. TYMPANOMETRY Description of procedure: This test is an objective evaluation of middle ear function. CPT code: 82047 RIGHT EAR: Normal ME function. LEFT EAR: Normal ME function. ACOUSTIC REFLEXES Description of procedure: This test is an objective measure of auditory and facial nerve pathways. CPT code: 97973, 04114 RIGHT EAR PROBE EAR: (ipsi right stimulus ear; contralateral left stimulus ear): Acoustic Reflex Pattern Did not test. Acoustic Reflex Decay (left stimulus ear): Did not test. LEFT EAR PROBE EAR: (ipsi left stimulus ear; contralateral right stimulus ear): Acoustic Reflex Pattern Did not test. Acoustic Reflex Decay (right stimulus ear): Did not test. PURE TONE AUDIOMETRY AND SPEECH TESTING Description of procedure: This test is an objective evaluation hearing sensitivity via air and bone conduction and speech recognition testing. CPT code: 62907 RIGHT EAR: Hearing Sensitivity: Mild sensorineural hearing loss from 250-1000 Hz rising to normal hearing sensitivity from 3584-4036 Hz. Word Recognition Score: Excellent (90-100%). WRS is consistent with hearing sensitivity. Words were presented at 60 dB HL is above (greater than or equal to 60 dB HL) intensity level for average conversational speech. The NU-6 Ordered by Difficulty Word List (10 words) was used for testing. Contralateral masking was used in the non-test ear. LEFT EAR: Hearing Sensitivity: Mild sensorineural hearing loss rising to normal essentially normal hearing sensitivity from 2019-6686 Hz. Word Recognition Score: Excellent (90-100%). WRS is consistent with hearing sensitivity. Words were presented at 65 dB HL which is above (greater than or equal to 60 dB HL) intensity level for average conversational speech. The NU-6 Ordered by Difficulty Word List (10 words) was used for testing. Contralateral masking was used in the non-test ear. RECOMMENDATIONS * Continue medical follow-up with Reymundo Clayton PA-C. * Return for re-evaluation as medically indicated or sooner if change is noted. * The patient was counseled about hearing conservation and use of noise protectors. * The patient was counseled regarding effective communication strategies to enhance communication ability. Shemar Bland, [facility] Abbrev- iation Definition Degree of hearing sensitivity dB range WNL within normal limits WNL 0 - 20 SNHL sensorineural hearing loss Mild 20-40 CHL conductive hearing loss Moderate 40-55 MHL mixed hearing loss Moderately-Severe 55-70 WRS word recognition score Severe 70-90 ME middle ear Profound 90 + TM tympanic membrane documented in this encounter [facility] 12-13-2024 Note [facility] 12-07-2024 Note [facility] 12-07-2024 History of Present illness Narrative Chief Complaint Patient presents with: Ear Pain: Left. Started last night HPI Chris Ricardo is a 64 year old female who presents here today for Above Complaints.. Left Ear Pain: - Deep, left ear pain that initially resolved about a month ago but recurred last night. - Managed with Tylenol; no other treatments tried. - Associated with clear rhinorrhea x1 week; denies sore throat or pressure when swallowing. - Cough present, believed to be cardiac-related, occurring primarily in the morning. - No right ear involvement. - Noticed decreased hearing; has an audiology appointment scheduled later this month. - Denies use of Flonase or other allergy medications. Past medical history, appointments, medications, allergies reviewed. Previous Medical History PAST MEDICAL HISTORY Diagnosis Date Abnormal mole AK (actinic keratosis) 10/17/2020 Ankle instability, left 06/08/2019 Arrhythmogenic right ventricular cardiomyopathy (HCC) 08/07/2023 Bee sting allergy 04/05/2020 Benign neoplasm of colon 04/16/2010 Tubular adenoma 04/16/12 Cataracts, bilateral 03/2020 Chronic constipation 06/13/2022 Chronic heart failure with preserved ejection fraction (HFpEF) (HCC) 08/07/2023 Chronic left shoulder pain 05/28/2018 Compound nevus 11/27/2020 Abd LLQ removed 11/2020 Congestive heart failure (HCC) 10/09/[address] Alcala: stage 2 Constipation Depression with anxiety 07/09/2017 Situational, Managed by Counseling. Diffuse cystic mastopathy Elevated blood sugar 05/01/2023 Encounter for gynecological examination 05/01/2023 Essential hypertension Family history of breast cancer 07/04/2016 Family history of malignant neoplasm of breast 05/07/2007 2 maternal aunts History of COVID-19 03/25/202201/2022 Insomnia, unspecified rare Left shoulder pain 03/11/2011 Low testosterone level in female 2010 Mixed hyperlipidemia 2006 was on simvastatin, was able to come off med. Nonrheumatic tricuspid valve regurgitation 01/31/2022 Osteopenia ++FHx osteoporosis Peroneal tendinitis of left lower extremity 08/27/2017 Personal history of colonic polyps 04/21/2013 tubular adenoma. 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 Tucker and Dr. Alcala: Cardiomyopathy. Had cardiac arrest, has a pace maker/defibulator. Is limited to what exercising she can do. Plantar fasciitis of left foot 08/27/2017 Plantar fasciitis of right foot 07/18/2016 Presence of combination internal cardiac defibrillator (ICD) and pacemaker 01/14/2017 Ptosis, left eyelid benign PTSD (post-traumatic stress disorder) 08/13/2018 Tinnitus, bilateral 10/23/2023 Unspecified closed fracture of ankle 2000 Ankle fracture left [place], [place] Urge incontinence Previous Surgical History PAST SURGICAL HISTORY Procedure Laterality Date APPENDECTOMY 1971 [place], [place] BLEPHAROPLASTY, UPPER EYELID Left 2017 BREAST BIOPSY 2007 left breast ([facility]) CARDIAC CATH 01/05/2017 normal COLONOSCOPY 04/27/2013 normal, repeat in 5 yrs d/t pers hx polyps and poss fam hx gi malignancy COLONOSCOPY 05/04/2018 repeat 10 yrs, Dr. Hatfield COLSC FLX W/RMVL OF TUMOR POLYP LESION SNARE TQ 04/16/2010 tubular adenoma at 70cm DILATION & CURETTAGE DX&/THER NONOBSTETRIC 09/2008 Dilation & curettage, Uterine Ablation with Novasure LEAD,PACEMAKER/DEFIB COMBO 01/06/2017 NOVASURE 09/2008 PRK Bilateral 01/2002 in [place] RADIOFREQUENCY ABLATION 01/03/2017 TONSILLECTOMY PRIMARY/SECONDARY <AGE 12 1970 Tonsillectomy [place] Family History FAMILY HISTORY Problem Relation Age of Onset Hypertension Mother dx age 30's Headache Mother Osteoporosis Mother Cataract Mother Lipids Mother Dementia Mother Alzheimer's Disease Father first symptoms around 70 Diabetes Father late 70's Hypertension Father Lipids Father Arthritis Father Cataract Father Osteoporosis Sister other (Abdominal Aortic Aneurysm) Maternal Grandmother Diabetes Paternal Grandmother Cancer Paternal Grandfather unknown Skin Cancer Daughter Breast Cancer Maternal Aunt x2 other (Abdominal Aortic Aneurysm) Maternal Aunt x2 Osteoporosis Maternal Aunt Osteoporosis Maternal Aunt Osteoporosis Maternal Aunt Osteoporosis Maternal Aunt other (Abdominal Aortic Aneurysm) Maternal Uncle Osteoporosis Maternal Uncle Osteoporosis Maternal Uncle Osteoporosis Maternal Uncle Osteoporosis Maternal Uncle Colon Cancer Other none other (cousin of blood clot; had dm, af and etoh) Other Patient Allergies ALLERGIES Allergen Reactions Bee Sting Swelling Omeprazole Other: See Comments vivid dreams Current Medications Current Outpatient Medications on File Prior to Visit Medication Sig EPINEPHrine (AUVI-Q) 0.3 mg/0.3 mL auto-injector Inject 0.3 mL intramuscularly as needed. Carboxymethylcellulose-Glycern (OPTIVE) 0.5-0.9 % drop Use 1 Drop in both eyes as needed. atorvastatin (LIPITOR) 10 mg tablet Take 1 tablet by mouth daily at bedtime. For cholesterol. empagliflozin (JARDIANCE) 10 mg tablet Take 1 tablet by mouth daily with breakfast. furosemide (LASIX) 40 mg tablet Take 1 tablet by mouth once daily. metoprolol succinate ER (TOPROL XL) 25 mg 24 hr tablet Take 1.5 tablets by mouth once daily. L. acidophilus/Bifid. animalis (PROBIOTIC) 5 billion cell cpSP Take 1 capsule by mouth once daily. glucosamine/chondr barrera A sod (OSTEO BI-FLEX ORAL) Take by mouth once daily. CALCIUM-VITAMIN D3 ORAL Take by mouth. 1200 calcium- 1000 units D3 (2) tablets twice daily acetaminophen (TYLENOL) 500 mg tablet Take 500 mg by mouth every 6 hours as needed. multivitamin ORAL tablet Take 1 tablet by mouth once daily. aspirin 81 mg ORAL Chew Take one(1) tablet daily. No current facility-administered medications on file prior to visit. Social History Social History Tobacco Use Smoking status: Former Current packs/day: 0.00 Average packs/day: 0.5 packs/day for 10.0 years (5.0 ttl pk-yrs) Types: Cigarettes Start date: 08/04/1978 Quit date: 08/04/1988 Years since quittin.3 Passive exposure: Never Smokeless tobacco: Never Tobacco comments: quit 32 years ago Vaping Use Vaping status: Never Used Substance Use Topics Alcohol use: No Drug use: No Review of Symptoms REVIEW OF SYSTEMS SEE HPI EXAM: BP 120/78 (BP Site: Left Arm, BP Position: Sitting, BP Cuff Size: Large Adult) Pulse (!) 58 Temp 36.6 C (97.9 F) Resp 16 Wt 73.9 kg (163 lb) LMP 09/29/2008 SpO2 99% BMI 27.12 kg/m General Appearance: Well appearing, alert, in no acute distress, well-hydrated, well nourished.. Ears: EARS: Left ear canal appears irritated, fluid noted behind left TM. Right ear canal clear, Right TM wnl. . Lungs: Lungs clear to auscultation. No wheezing, rhonchi, rales.. Heart: RRR without murmur, gallop, or rubs. No ectopy. Health Maintenance List Cervical Cancer Screening due on 09/10/2024 Mammogram Screening due on 11/26/2025 Annual PCP Team Chronic Disease Visit due on 12/07/2025 BP Controlled (<130/80) due on 12/07/2025 Pneumococcal Vaccine: 50+(3 of 3 - PCV20 or PCV21) due on 04/19/2026 Diabetes Screening due on 11/11/2027 Colorectal Cancer Screening due on 05/04/2028 Lipid Screening due on 11/10/2029 DTaP,Tdap,Td Vaccine(4 - Td or Tdap) due on 07/08/2033 Influenza Vaccine Completed RSV Vaccine Completed Hepatitis C Screening Completed Shingrix Vaccine Completed Covid-19 Vaccine Completed HIV Screening Discontinued Data reviewed N/a Assessment and Plan 1. Left ear pain (H92.02) 2. Dysfunction of left eustachian tube (H69.92) - Left ear pain with associated decreased hearing and fluid behind the tympanic membrane observed on examination; ear canal appears irritated but not infected. - Advised use of Flonase intranasal spray daily for 1-2 weeks to reduce inflammation and facilitate drainage of the Eustachian tube. - Prescribed otic drops to prevent potential infection of the ear canal. - Follow-up with audiology scheduled later this month to assess hearing loss. Kelsie Doshi PA-C Recording using [employer] Me software for draft documentation of the visit was discussed with the patient/authorized employee representative; all questions welcomed and answered. Patient/authorized employee representative agreed to proceed documented in this encounter [facility] 12-03-2024 Note [facility] 12-03-2024 History of Present illness Narrative Subjective Chris is a 64-year-old female presenting for follow-up of a right ankle fracture. Chris reports significant improvement in her right ankle since the last visit. Swelling has decreased substantially, and pain is nearly resolved. She experiences mild pain only upon palpation of the ankle, which has also diminished over time. She denies pain when applying pressure while wearing her boot and has been ambulating without crutches at home without discomfort. She uses crutches only when outside the home, such as during grocery shopping. She denies pain in the leg below the knee or in the calf muscles and has not noticed any issues with calf muscle function, although she observes some atrophy in the affected leg. During the first week post-injury, she experienced a burning sensation in the ankle but managed the pain with rest and ice application. She reports a high pain tolerance and describes her current pain as manageable. She denies any pain with anterior drawer test or shifting of the ankle. She notes some tightness when moving her toes laterally and dorsally but denies pain with plantar flexion. She has not been driving due to wearing the boot on her right foot. Musculoskeletal: (+) right ankle pain on palpation, (-) calf muscle pain, (-) knee pain, (-) ankle pain with weightbearing PAST MEDICAL HISTORY Diagnosis Date Abnormal mole AK (actinic keratosis) 10/17/2020 Ankle instability, left 06/08/2019 Arrhythmogenic right ventricular cardiomyopathy (HCC) 08/07/2023 Bee sting allergy 04/05/2020 Benign neoplasm of colon 04/16/2010 Tubular adenoma 04/16/12 Cataracts, bilateral 03/2020 Chronic constipation 06/13/2022 Chronic heart failure with preserved ejection fraction (HFpEF) ([facility]) 08/07/2023 Chronic left shoulder pain 05/28/2018 Compound nevus 11/27/2020 Abd LLQ removed 11/2020 Congestive heart failure ([facility]) 10/09/[address] Alcala: stage 2 Constipation Depression with anxiety 07/09/2017 Situational, Managed by Counseling. Diffuse cystic mastopathy Elevated blood sugar 05/01/2023 Encounter for gynecological examination 05/01/2023 Essential hypertension Family history of breast cancer 07/04/2016 Family history of malignant neoplasm of breast 05/07/2007 2 maternal aunts History of COVID-19 03/25/202201/2022 Insomnia, unspecified rare Left shoulder pain 03/11/2011 Low testosterone level in female 2010 Mixed hyperlipidemia 2006 was on simvastatin, was able to come off med. Nonrheumatic tricuspid valve regurgitation 01/31/2022 Osteopenia ++FHx osteoporosis Peroneal tendinitis of left lower extremity 08/27/2017 Personal history of colonic polyps 04/21/2013 tubular adenoma. 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 Tucker and Dr. Alcala: Cardiomyopathy. Had cardiac arrest, has a pace maker/defibulator. Is limited to what exercising she can do. Plantar fasciitis of left foot 08/27/2017 Plantar fasciitis of right foot 07/18/2016 Presence of combination internal cardiac defibrillator (ICD) and pacemaker 01/14/2017 Ptosis, left eyelid benign PTSD (post-traumatic stress disorder) 08/13/2018 Tinnitus, bilateral 10/23/2023 Unspecified closed fracture of ankle 2001 Ankle fracture left [place], [place] Urge incontinence PAST SURGICAL HISTORY Procedure Laterality Date APPENDECTOMY 1970 [place], [place] BLEPHAROPLASTY, UPPER EYELID Left 2017 BREAST BIOPSY 2007 left breast ([facility]) CARDIAC CATH 01/05/2017 normal COLONOSCOPY 04/27/2013 normal, repeat in 5 yrs d/t pers hx polyps and poss fam hx gi malignancy COLONOSCOPY 05/04/2018 repeat 10 yrs, Dr. Hatfield COLSC FLX W/RMVL OF TUMOR POLYP LESION SNARE TQ 04/16/2010 tubular adenoma at 70cm DILATION & CURETTAGE DX&/THER NONOBSTETRIC 09/2008 Dilation & curettage, Uterine Ablation with Novasure LEAD,PACEMAKER/DEFIB COMBO 01/06/2017 NOVASURE 09/2008 PRK Bilateral 01/2002 in [place] RADIOFREQUENCY ABLATION 01/03/2017 TONSILLECTOMY PRIMARY/SECONDARY <AGE 12 1970 Tonsillectomy [place], [place] Current Outpatient Medications on File Prior to Visit Medication Sig Carboxymethylcellulose-Glycern (OPTIVE) 0.5-0.9 % drop Use 1 Drop in both eyes as needed. atorvastatin (LIPITOR) 10 mg tablet Take 1 tablet by mouth daily at bedtime. For cholesterol. empagliflozin (JARDIANCE) 10 mg tablet Take 1 tablet by mouth daily with breakfast. furosemide (LASIX) 40 mg tablet Take 1 tablet by mouth once daily. metoprolol succinate ER (TOPROL XL) 25 mg 24 hr tablet Take 1.5 tablets by mouth once daily. L. acidophilus/Bifid. animalis (PROBIOTIC) 5 billion cell cpSP Take 1 capsule by mouth once daily. glucosamine/chondr barrera A sod (OSTEO BI-FLEX ORAL) Take by mouth once daily. CALCIUM-VITAMIN D3 ORAL Take by mouth. 1200 calcium- 1000 units D3 (2) tablets twice daily acetaminophen (TYLENOL) 500 mg tablet Take 500 mg by mouth every 6 hours as needed. multivitamin ORAL tablet Take 1 tablet by mouth once daily. aspirin 81 mg ORAL Chew Take one(1) tablet daily. EPINEPHrine (AUVI-Q) 0.3 mg/0.3 mL auto-injector Inject 0.3 mL intramuscularly as needed. No current facility-administered medications on file prior to visit. Objective Last menstrual period 09/29/2008. General: No acute distress. MSK/Ext: Mild tenderness to palpation over ankle, decreased range of motion in ankle, no pain with anterior drawer test, mild atrophy of calf muscles. 1. Closed avulsion fracture of distal fibula with routine healing, right (S82.831D) Healing as expected with significant reduction in swelling and minimal tenderness. No pain with pressure in the boot or when ambulating without crutches at home. X-rays from today show no shifting of the fragment or undesirable movement. - Discontinue use of crutches; begin ambulating with boot. - Initiate range of motion exercises at home, including gas pedals and windshield wipers, 20 repetitions each, a couple of times a day. - Advised against driving with the boot on; may remove boot and wear a shoe for driving if absolutely necessary, but should minimize driving. - Follow-up in 2 weeks to assess progress and potential transition out of the boot. Attestation Recording using Recite Me software for draft documentation of the visit was discussed with the patient/authorized employee representative; all questions welcomed and answered. Patient/authorized employee representative agreed to proceed AMB ROOMING INTAKE FLOWSHEET DATA Pain Pain Level: 1 Pain Location: Foot-Right Description: Sore, Tenderness Duration Amount of Time: 21 Duration Units: Days Frequency: Intermittent Intervention/Comfort measure: Cold, Massage, Pillow support, Positioning, Splinting documented in this encounter [facility] 12-03-2024 History of Present illness Narrative Radiology Service Progress Note PATIENT NAME: Chris Ricardo DATE OF SERVICE: December 03, 2024 TIME: 1:23 PM PATIENT IDENTITY VERIFICATION COMPLETED USING TWO (2) IDENTIFIERS: Name and Date of confirmed by patient verbally. FALL SCREENING: Has the patient had 2 falls in the last year or 1 fall with injury or currently using an Ambulatory Assistive Device (Walker, Cane, Wheelchair, Crutches, etc.)? No PATIENT GENDER DATA: Assigned female at . status: : No status: NO. PATIENT RELEVANT IMPLANT DATA REVIEWED: Not Applicable PATIENT PRESENTS WITH AN IMPLANTABLE OR ATTACHED AIR INTERCEPT CONTROLLER: No RADIOLOGY DEPARTMENT: General X-ray: Exam(s) Completed: Lower Extremity X-Ray(s): Ankle, Right PERIPHERAL IV DATA: Not applicable SIGNED BY: Any Mario December 03, 2024 1:23 PM documented in this encounter [facility] 12-03-2024 Note [facility] 12-03-2024 Note [facility] 11-26-2024 Note [facility] 11-26-2024 Note [facility] 11-17-2024 Telephone encounter Note Patient notified via my chart. Kylah Razo MA [facility] 11-17-2024 Miscellaneous Notes Patient notified via my chart. Kylah Razo MA Let patient know ice is better then heat. In fact heat will increased swelling and pain. Also let her know she is due for a repeat DXA and I placed an order. Tell her I said thank your for the update and kind words. documented in this encounter [facility] 11-17-2024 Telephone encounter Note Let patient know ice is better then heat. In fact heat will increased swelling and pain. Also let her know she is due for a repeat DXA and I placed an order. Tell her I said thank your for the update and kind words. [facility] 11-16-2024 Instructions Alton Eisenberg MD - 11/16/2024 2:06 PM EDT Please get labs and urine test done on or after 05/06/2025 prior to your next visit. documented in this encounter [facility] 11-16-2024 Note [facility] 11-16-2024 History of Present illness Narrative Chief Complaint Patient presents with: F/U 6 months HPI Chris Ricardo is a 64 year old female who presents here today for 6 month follow up . Patient fell 11/04 and fracture to right leg - seeing Dr Campos. Having right lower rib pain. The pain has decreased some. No fevers, chills or productive cough. Patient with hx of Arrhythmogenic right ventricular cardiomyopathy, depression with anxiety, hyperlipidemia, insomnia, CHF osteopenia as well as those reviewed and addressed below and in ROS. Patient sees Dr. Alcala Cardiology last visit 05/[address] Raygoza - Otolaryngology Recent fall and saw Dr. Campos on 11/05/2024 Otherwise garcia been doing well. Past medical history, appointments, medications, allergies reviewed. Previous Medical History PAST MEDICAL HISTORY Diagnosis Date Abnormal mole AK (actinic keratosis) 10/17/2020 Ankle instability, left 06/08/2019 Arrhythmogenic right ventricular cardiomyopathy (HCC) 08/07/2023 Bee sting allergy 04/05/2020 Benign neoplasm of colon 04/16/2010 Tubular adenoma 04/16/12 Cataracts, bilateral 03/2020 Chronic constipation 06/13/2022 Chronic heart failure with preserved ejection fraction (HFpEF) (HCC) 08/07/2023 Chronic left shoulder pain 05/28/2018 Compound nevus 11/27/2020 Abd LLQ removed 11/2020 Congestive heart failure (HCC) 10/09/[address] Alcala: stage 2 Constipation Depression with anxiety 07/09/2017 Situational, Managed by Counseling. Diffuse cystic mastopathy Elevated blood sugar 05/01/2023 Encounter for gynecological examination 05/01/2023 Essential hypertension Family history of breast cancer 07/04/2016 Family history of malignant neoplasm of breast 05/07/2007 2 maternal aunts History of COVID-19 03/25/202201/2022 Insomnia, unspecified rare Left shoulder pain 03/11/2011 Low testosterone level in female 2010 Mixed hyperlipidemia 2006 was on simvastatin, was able to come off med. Nonrheumatic tricuspid valve regurgitation 01/31/2022 Osteopenia ++FHx osteoporosis Peroneal tendinitis of left lower extremity 08/27/2017 Personal history of colonic polyps 04/21/2013 tubular adenoma. 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 Tucker and Dr. Alcala: Cardiomyopathy. Had cardiac arrest, has a pace maker/defibulator. Is limited to what exercising she can do. Plantar fasciitis of left foot 08/27/2017 Plantar fasciitis of right foot 07/18/2016 Presence of combination internal cardiac defibrillator (ICD) and pacemaker 01/14/2017 Ptosis, left eyelid benign PTSD (post-traumatic stress disorder) 08/13/2018 Tinnitus, bilateral 10/23/2023 Unspecified closed fracture of ankle 2000 Ankle fracture left [place], [place] Urge incontinence Previous Surgical History PAST SURGICAL HISTORY Procedure Laterality Date APPENDECTOMY 1970 [place], [place] BLEPHAROPLASTY, UPPER EYELID Left 2017 BREAST BIOPSY 2006 left breast ([facility]) CARDIAC CATH 01/05/2017 normal COLONOSCOPY 04/27/2013 normal, repeat in 5 yrs d/t pers hx polyps and poss fam hx gi malignancy COLONOSCOPY 05/04/2018 repeat 10 yrs, Dr. Hatfield COLSC FLX W/RMVL OF TUMOR POLYP LESION SNARE TQ 04/16/2010 tubular adenoma at 70cm DILATION & CURETTAGE DX&/THER NONOBSTETRIC 09/2008 Dilation & curettage, Uterine Ablation with Novasure LEAD,PACEMAKER/DEFIB COMBO 01/06/2017 NOVASURE 09/2008 PRK Bilateral 01/2002 in [place] RADIOFREQUENCY ABLATION 01/03/2017 TONSILLECTOMY PRIMARY/SECONDARY <AGE 12 1970 Tonsillectomy [place], [place] Family History FAMILY HISTORY Problem Relation Age of Onset Hypertension Mother dx age 30's Headache Mother Osteoporosis Mother Cataract Mother Lipids Mother Dementia Mother Alzheimer's Disease Father first symptoms around 70 Diabetes Father late 70's Hypertension Father Lipids Father Arthritis Father Cataract Father Osteoporosis Sister other (Abdominal Aortic Aneurysm) Maternal Grandmother Diabetes Paternal Grandmother Cancer Paternal Grandfather unknown Skin Cancer Daughter Breast Cancer Maternal Aunt x2 other (Abdominal Aortic Aneurysm) Maternal Aunt x2 Osteoporosis Maternal Aunt Osteoporosis Maternal Aunt Osteoporosis Maternal Aunt Osteoporosis Maternal Aunt other (Abdominal Aortic Aneurysm) Maternal Uncle Osteoporosis Maternal Uncle Osteoporosis Maternal Uncle Osteoporosis Maternal Uncle Osteoporosis Maternal Uncle Colon Cancer Other none other (cousin of blood clot; had dm, af and etoh) Other Patient Allergies ALLERGIES Allergen Reactions Bee Sting Swelling Omeprazole Other: See Comments vivid dreams Current Medications Current Outpatient Medications on File Prior to Visit Medication Sig Carboxymethylcellulose-Glycern (OPTIVE) 0.5-0.9 % drop Use 1 Drop in both eyes as needed. atorvastatin (LIPITOR) 10 mg tablet Take 1 tablet by mouth daily at bedtime. For cholesterol. empagliflozin (JARDIANCE) 10 mg tablet Take 1 tablet by mouth daily with breakfast. furosemide (LASIX) 40 mg tablet Take 1 tablet by mouth once daily. metoprolol succinate ER (TOPROL XL) 25 mg 24 hr tablet Take 1.5 tablets by mouth once daily. EPINEPHrine (AUVI-Q) 0.3 mg/0.3 mL auto-injector Inject 0.3 mL intramuscularly as needed. L. acidophilus/Bifid. animalis (PROBIOTIC) 5 billion cell cpSP Take 1 capsule by mouth once daily. glucosamine/chondr barrera A sod (OSTEO BI-FLEX ORAL) Take by mouth once daily. CALCIUM-VITAMIN D3 ORAL Take by mouth. 1200 calcium- 1000 units D3 (2) tablets twice daily acetaminophen (TYLENOL) 500 mg tablet Take 500 mg by mouth every 6 hours as needed. multivitamin ORAL tablet Take 1 tablet by mouth once daily. aspirin 81 mg ORAL Chew Take one(1) tablet daily. No current facility-administered medications on file prior to visit. Social History Social History Tobacco Use Smoking status: Former Current packs/day: 0.00 Average packs/day: 0.5 packs/day for 10.0 years (5.0 ttl pk-yrs) Types: Cigarettes Start date: 08/04/1978 Quit date: 08/04/1988 Years since quittin.3 Passive exposure: Never Smokeless tobacco: Never Tobacco comments: quit 32 years ago Vaping Use Vaping status: Never Used Substance Use Topics Alcohol use: No Drug use: No Review of Symptoms REVIEW OF SYSTEMS GENERAL: No weight loss, malaise or fevers NECK: Negative for lumps, goiter, pain and significant neck swelling RESPIRATORY: Negative for cough, hemoptysis, increased wheezing, COPD, dyspnea or shortness of breath CARDIOVASCULAR: Negative for chest pain, leg swelling, hypertension, CHF or palpitations GI: No nausea, vomiting, or diarrhea and No frequent heartburn or reflux symptoms. Constipation has been controlled with diet. PSYCH: at this time feels she is doing ok. No longer sees consular. ENDOCRINE: Negative for cold or heat intolerance, polyuria, polydipsia and goiter NEURO: No history of headaches, syncope, paralysis, seizures or tremors EXAM: BP 112/74 Pulse 62 Resp 16 Wt 73.5 kg (162 lb) LMP 09/29/2008 BMI 26.96 kg/m Last 6 Encounter Wt Readings: Date: Wt: 11/16/2024 73.5 kg (162 lb) 11/04/2024 73.9 kg (162 lb 14.7 oz) 08/11/2024 71.2 kg (157 lb) 06/22/2024 72.1 kg (159 lb) 06/08/2024 72.1 kg (159 lb) 05/18/2024 70.8 kg (156 lb) General Appearance: Well appearing, alert, in no acute distress, well-hydrated, well nourished. and Overweight. Neck: Supple, no adenopathy; thyroid symmetric, normal size, no bruits. Lungs: Lungs clear to auscultation. No wheezing, rhonchi, rales.. Heart: RRR without murmur, gallop, or rubs. No ectopy. Abdomen: Normal abdominal exam, Abdomen soft, non-tender. Bowel sounds normal. No masses, organomegaly. Extremities: No deformities, edema, on the left. The right is in boot. Skin: has suspect AK on the ventral left forearm. Health Maintenance List Cervical Cancer Screening due on 09/10/2024 Mammogram Screening due on 10/08/2024 Annual PCP Team Chronic Disease Visit due on 06/22/2025 BP Controlled (<130/80) due on 11/04/2025 Pneumococcal Vaccine: 50+(3 of 3 - PCV20 or PCV21) due on 04/19/2026 Diabetes Screening due on 11/11/2027 Colorectal Cancer Screening due on 05/04/2028 Lipid Screening due on 11/10/2029 DTaP,Tdap,Td Vaccine(4 - Td or Tdap) due on 07/08/2033 Influenza Vaccine Completed RSV Vaccine Completed Hepatitis C Screening Completed Shingrix Vaccine Completed Covid-19 Vaccine Completed HIV Screening Discontinued Data reviewed Latest Ref Rng 04/20/2024 11/10/2024 Protein, Total 6.3 - 8.0 g/dL 6.9 6.9 Albumin 3.9 - 4.9 g/dL 4.1 4.3 Calcium 8.5 - 10.2 mg/dL 9.4 10.0 Bilirubin, Total 0.2 - 1.3 mg/dL 0.3 0.4 Alkaline Phosphatase 34 - 123 U/L 86 72 AST 13 - 35 U/L 25 26 ALT 7 - 38 U/L 30 21 Glucose 74 - 99 mg/dL 83 66 (L) BUN 7 - 21 mg/dL 25 (H) 24 (H) Creatinine 0.58 - 0.96 mg/dL 0.99 (H) 0.98 (H) Sodium 136 - 144 mmol/L 143 142 Potassium 3.7 - 5.1 mmol/L 4.5 4.3 Chloride 98 - 107 mmol/L 103 102 CO2 22 - 30 mmol/L 30 31 (H) Anion Gap 8 - 15 mmol/L 10 9 eGFR >=60 mL/min/1.73m 64 65 Total Cholesterol, Nonfasting <200 mg/dL 159 170 Triglycerides, Nonfasting <150 mg/dL 100 181 (H) HDL Cholesterol, Nonfasting >39 mg/dL 51 46 LDL Cholesterol, Nonfasting <100 mg/dL 88 88 Non HDL Cholesterol, Nonfasting <130 mg/dL 108 124 VLDL Cholesterol, Nonfasting <30 mg/dL 20 36 (H) Total Chol/HDL Ratio, Nonfasting <5.10 mg/dL 3.12 3.70 LDL/HDL Ratio, Nonfasting <2.54 mg/dL 1.73 1.91 Hemoglobin A1C 4.3 - 5.6 % 5.5 5.3 Estimated Average Glucose mg/dL 111 105 A/P ASSESSMENT/PLAN: 1. Mixed hyperlipidemia - ICD9: 272.2, ICD10: E78.2 (primary diagnosis) - Controlled - Continue current medications - Counseled on healthy diet and regular exercise 2. Elevated blood sugar - ICD9: 790.29, ICD10: R73.9 - controlled wit diet. 3. Gastroesophageal reflux disease without esophagitis - ICD9: 530.81, ICD10: K21.9 - managed through diet changes. 4. 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 5. Arrhythmogenic right ventricular cardiomyopathy (HCC) - ICD9: 425.4, ICD10: I42.8 - as per #4 6. Chronic diastolic heart failure (HCC) - ICD9: 428.32, ICD10: I50.32 - as per #4 7. Presence of combination internal cardiac defibrillator (ICD) and pacemaker - ICD9: V45.02, ICD10: Z95.810 - as per #4 8. Sinus node dysfunction (HCC) - ICD9: 427.81, ICD10: I49.5 - as per #4 9. Nonrheumatic tricuspid valve regurgitation - ICD9: 424.2, ICD10: I36.1 - as per #4 10. PTSD (post-traumatic stress disorder) - ICD9: 309.81, ICD10: F43.10 - stale not needs med management 11. Depression with anxiety - ICD9: 300.4, ICD10: F41.8 - as per #10 12. Bee sting allergy - ICD9: V15.06, ICD10: Z91.030 - new script for epi pen. 13. AK (actinic keratosis) - ICD9: 702.0, ICD10: L57.0 - discussed cryo and verbal consent given. Area treated with cryo with a 40 sec thaw phase. Patient tolerated well. 14. Rib pain on right side - ICD9: 786.50, ICD10: R07.81 - possible resolving rib fracture. Advised patient that we could get an x-ray but wont change Tx. Lung sounds normal. Advised on deep breathing to reduce risk of developing pneumonia. Requested Prescriptions Signed Prescriptions Disp Refills EPINEPHrine (AUVI-Q) 0.3 mg/0.3 mL auto-injector 2 each 1 Sig: Inject 0.3 mL intramuscularly as needed. F/u 6 months WAE check CMP, lipid, UA, CBC Alton Eisenberg MD documented in this encounter [facility] 11-05-2024 Note [facility] 11-05-2024 History of Present illness Narrative Subjective The patient is a 64-year-old female with a history of heart disease, presenting for evaluation of a right ankle injury sustained yesterday. Right Ankle Injury: - Sustained injury yesterday while walking in the neighborhood. - Turned to look at a barking dog and fell; heard a crack upon falling. - Able to walk fpc home post-fall. - Reports pain radiating up the leg. - Denies numbness or tingling in toes. - History of left ankle injuries, including two fractures and a sprain about a year ago. - Uses custom shoe inserts. - Taking baby aspirin; avoids NSAIDs due to heart disease. - Using Tylenol for pain management. Rib Pain: - Developed rib pain yesterday afternoon, worsened by deep breathing. - No pain reported in the back or other areas of the chest. Musculoskeletal: (+) right ankle pain with radiation, (+) rib cage pain with deep inspiration, (-) proximal fibula pain, (-) 5th metatarsal pain Neurological: (-) numbness/tingling in toes Objective Last menstrual period 09/29/2008. General: No acute distress. Resp: No pain on posterior rib palpation; no crepitus on deep inspiration. MSK/Ext: Pain on palpation under breast; pain on palpation of distal fibula; no pain on palpation of proximal fibula; no pain on palpation of fifth metatarsal; able to wiggle toes; no numbness or tingling in toes. Labs: Tests: Imaging: - X-ray Right Ankle: Avulsion fracture of the distal fibula with stable alignment and no joint space compromise. 1. Right ankle injury, initial encounter (S99.911A) 2. Closed avulsion fracture of distal fibula with routine healing, right (S82.831D) 3. Unspecified fall, initial encounter (W19.XXXA) - Sustained a right ankle injury due to an unspecified fall; patient heard a crack during the incident. - X-ray reveals a closed avulsion fracture of the distal fibula, stable and in alignment with maintained joint space. - No previous injuries to the right ankle; history of fractures and sprain in the left ankle. - No numbness or tingling in toes; able to wiggle toes without difficulty. - No pain in the proximal fibula or over the fifth metatarsal. - Educated patient on the nature of the fracture, explaining that it is an avulsion fracture and does not require surgical intervention. - Advised on the expected bruising and swelling, which will resolve over a few weeks. - Instructed to begin weight-bearing in a boot when comfortable, using crutches for stabilization as needed. - Emphasized the importance of keeping the boot on during walking for approximately four weeks. - Advised against the use of NSAIDs such as Advil, Motrin, and Aleve for the first 4-5 days to avoid slowing the healing process; Tylenol is acceptable for pain management. - Recommended elevation of the ankle above the knee to reduce swelling. - Scheduled follow-up in 3-4 weeks with a repeat X-ray to assess healing progress and alignment. - Patient understands and agrees with the treatment plan. Attestation The patient consented to the use of [employer] Me software for draft documentation of the visit consistent with [facility] s Notice of Privacy Practices. AMB ROOMING INTAKE FLOWSHEET DATA Pain Pain Level: 8 Pain Location: Ankle-Right Description: Burning, Radiating, Sharp, Shooting, Sore, Tenderness Duration Amount of Time: 6 Duration Units: Hours Frequency: Continuous Intervention/Comfort measure: Reposition, Relaxation, Cold, Pillow support, Positioning, Splinting Patient here today for right ankle fracture. States she was on a walk and heard a dog barking so she turned to see if the dog was fenced or leashed and ended up on the ground. She was seen at Urgent Care following the injury. Arrives wearing a fracture boot and using crutches. Retired. documented in this encounter [facility] 11-05-2024 Note [facility] 11-04-2024 Instructions Saida Frank APRN.[employer] - 11/04/2024 10:58 AM EDT ASSESSMENT/PLAN: 1. Right ankle injury, initial encounter - ICD9: 959.7, ICD10: S99.911A (primary diagnosis) - XR ANKLE GENERAL 3V AP/LAT/OBL RIGHT RESULT: Nondisplaced transverse fracture of the RIGHT lateral malleolus with fracture line below the tibial plafond. Moderate overlying lateral ankle soft tissue swelling. Ankle mortise is maintained. Corticated ossicle anterior aspect of the navicular likely related to degenerative change. Posterior and plantar calcaneal spurs. IMPRESSION: Nondisplaced RIGHT lateral malleolus fracture. [employer] Reports Developer: KATHY Transcribe Date/Time: Nov 04 2024 10:34A Dictated by : LULÚ PAZ DO -placed patient in aircast boot. She has crutches. Instructed to use crutches and wear boot until seen by orthopedics. - ice and elevate at night. - tylenol for pain. - CONSULT PANEL TO ORTHOPAEDICS 2. Left knee injury, initial encounter - ICD9: 959.7, ICD10: S89.92XA - XR KNEE GENERAL 4V AP BOTH/PA BOTH/LAT/MERC LEFT IMPRESSION: No acute osseous abnormality. [employer] Reports Developer: KATHY Transcribe Date/Time: Nov 04 2024 10:32A Dictated by : LULÚ PAZ DO 3. Fall, initial encounter - ICD9: E888.9, ICD10: W19.XXXA - Follow-up with your PCP in 3-5 days if symptoms have not improved or sooner if symptoms worsen - Discussed red flags and need for immediate medical evaluation if any occur. - Discussed supportive care treatment with fluids, rest and analgesia. - Discussed expected course of illness Saida Frank APRN.[employer] documented in this encounter [facility] 11-04-2024 Note [facility] 11-04-2024 History of Present illness Narrative Images from the original note were not included. [facility] Subjective Chris Ricardo is a 64 year old female. Patient presents with: Ankle Injury: R ankle injury x1 hour HPI Chris Ricardo is a 64 year old female who presents with right ankle pain and swelling and left knee abrasion, swelling and pain. She was walking this morning and heard a dog barking and turned to see where the dog was and fell. She felt a pop in her right ankle and fell onto her left knee. She rates her pain 7/10. She was able to limp part of the way home and her came and picked her up. Review of Systems Constitutional: Negative for fever. Respiratory: Negative. Cardiovascular: Negative. Musculoskeletal: Positive for joint swelling. Objective BP 108/77 Pulse 86 Temp 36.5 C (97.7 F) Resp 18 Wt 73.9 kg (162 lb 14.7 oz) LMP 09/29/2008 SpO2 98% BMI 27.11 kg/m PAST MEDICAL HISTORY Diagnosis Date Abnormal mole AK (actinic keratosis) 10/17/2020 Ankle instability, left 06/08/2019 Arrhythmogenic right ventricular cardiomyopathy (HCC) 08/07/2023 Bee sting allergy 04/05/2020 Benign neoplasm of colon 04/16/2010 Tubular adenoma 04/16/12 Cataracts, bilateral 03/2020 Chronic constipation 06/13/2022 Chronic heart failure with preserved ejection fraction (HFpEF) (HCC) 08/07/2023 Chronic left shoulder pain 05/28/2018 Compound nevus 11/27/2020 Abd LLQ removed 11/2020 Congestive heart failure (HCC) 10/09/[address] Alcala: stage 2 Constipation Depression with anxiety 07/09/2017 Situational, Managed by Counseling. Diffuse cystic mastopathy Elevated blood sugar 05/01/2023 Encounter for gynecological examination 05/01/2023 Essential hypertension Family history of breast cancer 07/04/2016 Family history of malignant neoplasm of breast 05/07/2007 2 maternal aunts History of COVID-19 03/25/202201/2022 Insomnia, unspecified rare Left shoulder pain 03/11/2011 Low testosterone level in female 2010 Mixed hyperlipidemia 2006 was on simvastatin, was able to come off med. Nonrheumatic tricuspid valve regurgitation 01/31/2022 Osteopenia ++FHx osteoporosis Peroneal tendinitis of left lower extremity 08/27/2017 Personal history of colonic polyps 04/21/2013 tubular adenoma. 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 Tucker and Dr. Alcala: Cardiomyopathy. Had cardiac arrest, has a pace maker/defibulator. Is limited to what exercising she can do. Plantar fasciitis of left foot 08/27/2017 Plantar fasciitis of right foot 07/18/2016 Presence of combination internal cardiac defibrillator (ICD) and pacemaker 01/14/2017 Ptosis, left eyelid benign PTSD (post-traumatic stress disorder) 08/13/2018 Tinnitus, bilateral 10/23/2023 Unspecified closed fracture of ankle 2000 Ankle fracture left [place], [place] Urge incontinence PAST SURGICAL HISTORY Procedure Laterality Date APPENDECTOMY 1971 [place], [place] BLEPHAROPLASTY, UPPER EYELID Left 2017 BREAST BIOPSY 2006 left breast ([facility]) CARDIAC CATH 01/05/2017 normal COLONOSCOPY 04/27/2013 normal, repeat in 5 yrs d/t pers hx polyps and poss fam hx gi malignancy COLONOSCOPY 05/04/2018 repeat 10 yrs, Dr. Hatfield COLSC FLX W/RMVL OF TUMOR POLYP LESION SNARE TQ 04/16/2010 tubular adenoma at 70cm DILATION & CURETTAGE DX&/THER NONOBSTETRIC 09/2008 Dilation & curettage, Uterine Ablation with Novasure LEAD,PACEMAKER/DEFIB COMBO 01/06/2017 NOVASURE 09/2008 PRK Bilateral 01/2002 in [place] RADIOFREQUENCY ABLATION 01/03/2017 TONSILLECTOMY PRIMARY/SECONDARY <AGE 12 1970 Tonsillectomy [place], [place] ALLERGIES Bee Sting and Omeprazole MEDICATIONS atorvastatin (LIPITOR) 10 mg tablet Take 1 tablet by mouth daily at bedtime. For cholesterol. empagliflozin (JARDIANCE) 10 mg tablet Take 1 tablet by mouth daily with breakfast. furosemide (LASIX) 40 mg tablet Take 1 tablet by mouth once daily. metoprolol succinate ER (TOPROL XL) 25 mg 24 hr tablet Take 1.5 tablets by mouth once daily. EPINEPHrine (AUVI-Q) 0.3 mg/0.3 mL auto-injector Inject 0.3 mL intramuscularly as needed. L. acidophilus/Bifid. animalis (PROBIOTIC) 5 billion cell cpSP Take 1 capsule by mouth once daily. glucosamine/chondr barrera A sod (OSTEO BI-FLEX ORAL) Take by mouth once daily. CALCIUM-VITAMIN D3 ORAL Take by mouth. 1200 calcium- 1000 units D3 (2) tablets twice daily multivitamin ORAL tablet Take 1 tablet by mouth once daily. aspirin 81 mg ORAL Chew Take one(1) tablet daily. Carboxymethylcellulose-Glycern (OPTIVE) 0.5-0.9 % drop Use 1 Drop in both eyes as needed. acetaminophen (TYLENOL) 500 mg tablet Take 500 mg by mouth every 6 hours as needed. FAMILY HISTORY Problem Relation Age of Onset Hypertension Mother dx age 30's Headache Mother Osteoporosis Mother Cataract Mother Lipids Mother Dementia Mother Alzheimer's Disease Father first symptoms around 70 Diabetes Father late 70's Hypertension Father Lipids Father Arthritis Father Cataract Father Osteoporosis Sister other (Abdominal Aortic Aneurysm) Maternal Grandmother Diabetes Paternal Grandmother Cancer Paternal Grandfather unknown Skin Cancer Daughter Breast Cancer Maternal Aunt x2 other (Abdominal Aortic Aneurysm) Maternal Aunt x2 Osteoporosis Maternal Aunt Osteoporosis Maternal Aunt Osteoporosis Maternal Aunt Osteoporosis Maternal Aunt other (Abdominal Aortic Aneurysm) Maternal Uncle Osteoporosis Maternal Uncle Osteoporosis Maternal Uncle Osteoporosis Maternal Uncle Osteoporosis Maternal Uncle Colon Cancer Other none other (cousin of blood clot; had dm, af and etoh) Other Social History Tobacco Use Smoking status: Former Current packs/day: 0.00 Average packs/day: 0.5 packs/day for 10.0 years (5.0 ttl pk-yrs) Types: Cigarettes Start date: 08/04/1978 Quit date: 08/04/1988 Years since quittin.2 Passive exposure: Never Smokeless tobacco: Never Tobacco comments: quit 32 years ago Vaping Use Vaping status: Never Used Substance Use Topics Alcohol use: No Drug use: No Physical Exam Vitals and nursing note reviewed. Constitutional: Appearance: Normal appearance. Cardiovascular: Rate and Rhythm: Normal rate. Pulmonary: Effort: Pulmonary effort is normal. Musculoskeletal: General: Swelling, tenderness and signs of injury present. Left knee: Swelling present. No deformity, erythema or ecchymosis. Normal range of motion. Tenderness present. Right ankle: Swelling present. Tenderness present over the lateral malleolus. Decreased range of motion. Right Achilles Tendon: Normal. Legs: Comments: abrasion Skin: General: Skin is warm and dry. Findings: No bruising, erythema or rash. Neurological: Mental Status: She is alert. ASSESSMENT/PLAN: 1. Right ankle injury, initial encounter - ICD9: 959.7, ICD10: S99.911A (primary diagnosis) - XR ANKLE GENERAL 3V AP/LAT/OBL RIGHT RESULT: Nondisplaced transverse fracture of the RIGHT lateral malleolus with fracture line below the tibial plafond. Moderate overlying lateral ankle soft tissue swelling. Ankle mortise is maintained. Corticated ossicle anterior aspect of the navicular likely related to degenerative change. Posterior and plantar calcaneal spurs. IMPRESSION: Nondisplaced RIGHT lateral malleolus fracture. [employer] Reports Developer: KATHY Transcribe Date/Time: Nov 04 2024 10:34A Dictated by : LULÚ PAZ DO -placed patient in aircast boot. She has crutches. Instructed to use crutches and wear boot until seen by orthopedics. - ice and elevate at night. - tylenol for pain. - CONSULT PANEL TO ORTHOPAEDICS 2. Left knee injury, initial encounter - ICD9: 959.7, ICD10: S89.92XA - XR KNEE GENERAL 4V AP BOTH/PA BOTH/LAT/MERC LEFT IMPRESSION: No acute osseous abnormality. [employer] Reports Developer: KATHY Transcribe Date/Time: Nov 04 2024 10:32A Dictated by : LULÚ PAZ DO 3. Fall, initial encounter - ICD9: E888.9, ICD10: W19.XXXA - Follow-up with your PCP in 3-5 days if symptoms have not improved or sooner if symptoms worsen - Discussed red flags and need for immediate medical evaluation if any occur. - Discussed supportive care treatment with fluids, rest and analgesia. - Discussed expected course of illness Saida Frank APRN.CNP History and Record Review Clinical information obtained from an independent historian. History obtained from or confirmed by: spouse. Differential Diagnoses - lateral malleolus fracture is more likely for the following reason(s): suggested by H&P and consistent with imaging - knee abrasion is more likely for the following reason(s): suggested by H&P and consistent with imaging Management I performed an independent interpretation of the following:imaging Imaging: My interpretation is see chart Disposition The patient was discharged. OTC Medications were advised: tylenol Procedures documented in this encounter [facility] 11-04-2024 History of Present illness Narrative Radiology Service Progress Note PATIENT NAME: Chris Ricardo DATE OF SERVICE: November 04, 2024 TIME: 10:05 AM PATIENT IDENTITY VERIFICATION COMPLETED USING TWO (2) IDENTIFIERS: Name and Date of confirmed by patient verbally. FALL SCREENING: Has the patient had 2 falls in the last year or 1 fall with injury or currently using an Ambulatory Assistive Device (Walker, Cane, Wheelchair, Crutches, etc.)? No PATIENT GENDER DATA: Assigned female at . status: : No status: NO. PATIENT RELEVANT IMPLANT DATA REVIEWED: Not Applicable PATIENT PRESENTS WITH AN IMPLANTABLE OR ATTACHED AIR INTERCEPT CONTROLLER: No RADIOLOGY DEPARTMENT: General X-ray: Exam(s) Completed: Lower Extremity X-Ray(s): Knee, AP / Lat / Tunne / Merchant Left and Ankle, Right PERIPHERAL IV DATA: Not applicable SIGNED BY: RT Nicholas(R) November 04, 2024 10:05 AM documented in this encounter [facility] 11-04-2024 Note [facility] 08-11-2024 Note [facility] 08-11-2024 History of Present illness Narrative EVENT MONITOR DISPOSABLE PATCH INSTRUCTIONS Patient Name: Chris Ricardo [facility] Number: [id number] Skin prepped and cleansed with alcohol Patch secured to prepped area Monitor Activated Serial #: [id number] Patient Instructed: Prescribed order timeframe Bathing guidelines Usage of event button and diary documentation Return of monitor at the end of prescribed order Call with problems [phone] or [phone]. [phone] Patient expresses a good understanding of instructions Danii Agarwal documented in this encounter [facility] 08-11-2024 Note [facility] 08-11-2024 History of Present illness Narrative IRB #[id number] [facility] PKP2 study PI: Dr. Snowden Study Visit: Annual Follow-up I met with the patient for the 1 year Visit for the [facility] PKP2 Study. Reaffirmed that the patient still wishes to participate in the study and continues to consent to the study. Medications and allergy lists updated and current. Has the patient had any outside hospitalizations/ER visits: No Dates and locations: N/A Patient reports no syncopal episodes since last study visit. Labs collected per protocol. Patient reminded to complete questionnaires via mobile device arlene: Yes ZioPatch order placed. Patient opted for placement at: facility, placed today J2. Discussed with the patient the importance of follow up in the study. She verbalized understanding. Next study visit will be in clinic. Patient contact information reaffirmed and updated. Coordinator contact information provided to the patient. Education provided: Follow up requirements/schedule Materials dispensed: None Custom Frame Assembler: Carly Magdaleno Pager #: [phone] documented in this encounter [facility] 08-11-2024 History of Present illness Narrative Images from the original note were not included. [facility] Soiny[facility] Das Department of Cardiovascular Medicine SECTION OF CARDIAC PACING and ELECTROPHYSIOLOGY OUTPATIENT VISIT DATE August 11, 2024 OUTPATIENT VISIT TYPE ESTABLISHED PRIMARY CARE PHYSICIAN: Alton Eisenberg [address] [place] [address] REFERRING PHYSICIAN: Clarissa Tucker [address] [facility] [id number] CHIEF COMPLAINT: ARVC HISTORY OF PRESENT ILLNESS: Ms. Ricardo is a 64 year old female who presents today for follow-up visit her ICD and ARVC. She relates overall feels well, occassionally if she stands suddenly she gets light headed, she wakes with a cough that passess. She had been walking three miles a day and doing yoga a couple times a week. She relates she fell off the wagon a bit, but is working on getting back to her routine. 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 She relates she would have no limitations going up a flight of stairs but if she makes multiple trips up and down or if caring a laundry basket she might get a little short of breath. Overall she is NYHA II. Normal In-Office: No Events 08/11/2024 * In clinic device check and OPD with Dr. Tucker. * Normal Device Function * Alerts or events: None since the last remote on 08/01/24 * Battery: 2.7 years * Sensing, impedance and thresholds reviewed and tested * Presenting Rhythm: AP/VS * Underlying Rhythm: No RA intrinsic at DDD 40 but good conduction with AP-VS. * Heart Rate Histograms reviewed * Pacing and Detection Parameters were evaluated * RA pacing 98.7%, RV pacing 0.1% (MVP On). Echo 05/12/2024 CONCLUSIONS: - Exam indication: Arrhythmogenic right ventricular cardiomyopathy - The left ventricle is normal in size. Left ventricular systolic function is normal. EF = 60 5% (2D biplane) Normal left ventricular diastolic function. - The right ventricle is dilated. Right ventricular systolic function is moderately decreased. Prominent RV trabeculations and segments of RV free wall/ RVOT akinesis consistent with known diagnosis of ARVC. - The right atrial cavity is dilated. - There is moderate (2+ - 3+) tricuspid valve regurgitation caused by annular dilatation. - Estimated right ventricular systolic pressure is likely underestimated due to a weak or incomplete tricuspid regurgitation signal and is, at least, 22 mmHg consistent with normal pulmonary artery pressures. Estimated right atrial pressure is 3 mmHg based on IVC assessment. - Exam was compared with the prior echocardiographic exam performed on 08/06/2023. There is no significant change on direct comparison. Monitor 12/16/2023 Indication: Z00.6 Encounter for examination for normal comparison and control in clinical research program Type of Monitor: Extended Monitoring-Zio Patch Enrollment Dates: 11/27/2023-12/11/2023 IRHYTHM FINDINGS: Patient had a min HR of 59 bpm, max HR of 164 bpm, and avg HR of 69 bpm. Predominant underlying rhythm was Possible Atrial and Ventricular Pacing. 4 Ventricular Tachycardia runs occurred, the run with the fastest interval lasting 4 beats with a max rate of 164 bpm, the longest lasting 5 beats with an avg rate of 111 bpm. 6 Supraventricular Tachycardia runs occurred, the run with the fastest interval lasting 5 beats with a max rate of 138 bpm, the longest lasting 9 beats with an avg rate of 107 bpm. Supraventricular Tachycardia was detected within +/- 45 seconds of symptomatic patient event(s). Isolated SVEs were rare (<1.0%), SVE Couplets were rare (<1.0%), and SVE Triplets were rare (<1.0%). Isolated VEs were occasional (1.3%, 38798), VE Couplets were rare (<1.0%, 386), and VE Triplets were rare (<1.0%, 3). Ventricular Bigeminy and Trigeminy were present. DUAL LEAD ICD EVALUATION 08/06/2023 PRESENTS FOR: In clinic device check and OPD appt w/ Dr. Tucker. PRESENTING EGM: AP/VS UNDERLYING RHYTHM: SB 47 bpm. BATTERY STATUS: Estimated time remaining to CALVIN is 3.6 years. COUNTERS SINCE: 02/12/23 ATRIAL ARRHYTHMIAS: There were 0 triggered episodes of atrial high rates VENTRICULAR ARRHYTHMIAS: There was 1 nsVT detection. LEAD MEASUREMENTS: Capture and sensing are appropriate. The AutoCapture pacing outputs maintain safety margin. Review of the lead impedance trends are normal. IMPLANT SITE/ SYMPTOMS: The incision and pocket are pain-free (0/10), well healed and without signs of erosion or infection. No arm swelling, syncope, pre-syncope or device related pocket stimulation. OTHER DIAGNOSTICS: RA pacing 98.6%. RV pacing 0.2%. PVC singles 67/hr runs 4/hr PROGRAMMING CHANGES MADE TODAY: Increased max sensor rate from 120 to 130 based on HR histogram. FOLLOW UP: Remotes every 13 weeks and yearly in clinic visits. Ish Wing RN Echo 08/02/22 CONCLUSIONS: - Exam indication: Arrhythmogenic right ventricular cardiomyopathy - The left ventricle is normal in size. Left ventricular systolic function is normal. EF = 56 5% (2D biplane) - The right ventricle is dilated. Right ventricular systolic function is mildly decreased. RVFW: -18.8%. RV4CSL: -17.1% - There is moderate (2+ - 3+) tricuspid valve regurgitation. - AV morphology not well visualized in short axis images on today's study. - Exam was compared with the prior CC echocardiographic exam performed on 12/04/2021. No major change. Stress Test 04/02/2019 CONCLUSIONS: 1. SPECT Perfusion Study: Normal. 2. There is no scintigraphic evidence for inducible ischemia. 3. No evidence of scarred myocardium. 4. Good functional capacity for age and gender. 5. Left ventricle is normal in size. The left ventricle systolic function is normal. 6. This is a low risk scan. Gated Stress FBP LVEF % 78 cMRI 01/06/2017 IMPRESSION: Review of outside MRI from 01/06/2017: Enlarged and globally hypokinetic right ventricle with ejection fraction of 36%. Regional RV wall motion abnormalities and multifocal areas of delayed enhancement. Echo 01/04/2017 Left Ventricle: The left ventricular chamber size is normal. There is no left ventricular hypertrophy observed. Global left ventricular wall motion and contractility are within normal limits. There is normal left ventricular systolic function. The estimated ejection fraction is 55-60%. The ejection fraction is calculated to be 57% using the Method of Disks. No regional wall motion abnormalities are evident. The left atrial chamber size is normal. A patent foramen ovale is not demonstrated by color Doppler. The right ventricular chamber size and systolic function are within normal limits. The right ventricular cavity size is normal. The right ventricular global systolic function is normal. The right atrial cavity size is normal. The aortic valve is trileaflet. Mild aortic leaflet calcification is visualized. The aortic valve leaflets appear mildly sclerotic. There is no hemodynamically significant stenosis. There is a trace of aortic regurgitation. The mitral valve leaflets appear normal. There is mild mitral annular calcification. There is no evidence of mitral valve prolapse. There is no evidence of mitral stenosis. There is trivial physiological regurgitation of the mitral valve. The tricuspid valve leaflets are normal. There is mild tricuspid regurgitation. No pulmonary hypertension is noted. The pulmonic valve appears grossly normal in structure and function. There is no pericardial effusion. The aortic root is normal in diameter. There is less than 50% respiratory change in the inferior vena cava dimension. NURSING INTAKE HISTORY: Ms. Ricardo is a 64 year old female who presents today for follow-up visit for device management and history of ARVC. She was last seen in office 08/06/2023. She denies chest pain, orthopnea, edema, palpitations, PND or syncope. She drinks 3 bottles of water a day. She eats a low sodium diet. She wears knee high compression. She has slacked a little on her exercise due to the weather and holiday. PAST MEDICAL HISTORY Diagnosis Date Abnormal mole AK (actinic keratosis) 10/17/2020 Ankle instability, left 06/08/2019 Arrhythmogenic right ventricular cardiomyopathy (HCC) 08/07/2023 Bee sting allergy 04/05/2020 Benign neoplasm of colon 04/16/2010 Tubular adenoma 04/16/12 Cataracts, bilateral 03/2020 Chronic constipation 06/13/2022 Chronic heart failure with preserved ejection fraction (HFpEF) (HCC) 08/07/2023 Chronic left shoulder pain 05/28/2018 Compound nevus 11/27/2020 Abd LLQ removed 11/2020 Congestive heart failure (HCC) 10/09/[address] Alcala: stage 2 Constipation Depression with anxiety 07/09/2017 Situational, Managed by Counseling. Diffuse cystic mastopathy Elevated blood sugar 05/01/2023 Encounter for gynecological examination 05/01/2023 Essential hypertension Family history of breast cancer 07/04/2016 Family history of malignant neoplasm of breast 05/07/2007 2 maternal aunts History of COVID-19 03/25/202201/2022 Insomnia, unspecified rare Left shoulder pain 03/11/2011 Low testosterone level in female 2010 Mixed hyperlipidemia 2006 was on simvastatin, was able to come off med. Nonrheumatic tricuspid valve regurgitation 01/31/2022 Osteopenia ++FHx osteoporosis Peroneal tendinitis of left lower extremity 08/27/2017 Personal history of colonic polyps 04/21/2013 tubular adenoma. 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 Tucker and Dr. Alcala: Cardiomyopathy. Had cardiac arrest, has a pace maker/defibulator. Is limited to what exercising she can do. Plantar fasciitis of left foot 08/27/2017 Plantar fasciitis of right foot 07/18/2016 Presence of combination internal cardiac defibrillator (ICD) and pacemaker 01/14/2017 Ptosis, left eyelid benign PTSD (post-traumatic stress disorder) 08/13/2018 Tinnitus, bilateral 10/23/2023 Unspecified closed fracture of ankle 2000 Ankle fracture left [place], [place] Urge incontinence PAST SURGICAL HISTORY Procedure Laterality Date APPENDECTOMY 1971 [place], [place] BLEPHAROPLASTY, UPPER EYELID Left 2016 BREAST BIOPSY 2006 left breast ([facility]) CARDIAC CATH 01/05/2017 normal COLONOSCOPY 04/27/2013 normal, repeat in 5 yrs d/t pers hx polyps and poss fam hx gi malignancy COLONOSCOPY 05/04/2018 repeat 10 yrs, Dr. Hatfield COLSC FLX W/RMVL OF TUMOR POLYP LESION SNARE TQ 04/16/2010 tubular adenoma at 70cm DILATION & CURETTAGE DX&/THER NONOBSTETRIC 09/2008 Dilation & curettage, Uterine Ablation with Novasure LEAD,PACEMAKER/DEFIB COMBO 01/06/2017 NOVASURE 09/2008 PRK Bilateral 01/2002 in [place] RADIOFREQUENCY ABLATION 01/03/2017 TONSILLECTOMY PRIMARY/SECONDARY <AGE 12 1970 Tonsillectomy [place], [place] SOCIAL HISTORY Social History Tobacco Use Smoking status: Former Current packs/day: 0.00 Average packs/day: 0.5 packs/day for 10.0 years (5.0 ttl pk-yrs) Types: Cigarettes Start date: 08/04/1978 Quit date: 08/04/1988 Years since quittin.0 Passive exposure: Never Smokeless tobacco: Never Tobacco comments: quit 32 years ago Vaping Use Vaping status: Never Used Substance Use Topics Alcohol use: No Drug use: No FAMILY HISTORY Problem Relation Age of Onset Hypertension Mother dx age 30's Headache Mother Osteoporosis Mother Cataract Mother Lipids Mother Dementia Mother Alzheimer's Disease Father first symptoms around 70 Diabetes Father late 70's Hypertension Father Lipids Father Arthritis Father Cataract Father Osteoporosis Sister other (Abdominal Aortic Aneurysm) Maternal Grandmother Diabetes Paternal Grandmother Cancer Paternal Grandfather unknown Skin Cancer Daughter Breast Cancer Maternal Aunt x2 other (Abdominal Aortic Aneurysm) Maternal Aunt x2 Osteoporosis Maternal Aunt Osteoporosis Maternal Aunt Osteoporosis Maternal Aunt Osteoporosis Maternal Aunt other (Abdominal Aortic Aneurysm) Maternal Uncle Osteoporosis Maternal Uncle Osteoporosis Maternal Uncle Osteoporosis Maternal Uncle Osteoporosis Maternal Uncle Colon Cancer Other none other (cousin of blood clot; had dm, af and etoh) Other ALLERGIES: ALLERGIES Allergen Reactions Bee Sting Swelling Omeprazole Other: See Comments vivid dreams MEDICATIONS: Carboxymethylcellulose-Glycern (OPTIVE) 0.5-0.9 % drop Use 1 Drop in both eyes as needed. atorvastatin (LIPITOR) 10 mg tablet Take 1 tablet by mouth daily at bedtime. For cholesterol. empagliflozin (JARDIANCE) 10 mg tablet Take 1 tablet by mouth daily with breakfast. furosemide (LASIX) 40 mg tablet Take 1 tablet by mouth once daily. metoprolol succinate ER (TOPROL XL) 25 mg 24 hr tablet Take 1.5 tablets by mouth once daily. EPINEPHrine (AUVI-Q) 0.3 mg/0.3 mL auto-injector Inject 0.3 mL intramuscularly as needed. L. acidophilus/Bifid. animalis (PROBIOTIC) 5 billion cell cpSP Take 1 capsule by mouth once daily. glucosamine/chondr barrera A sod (OSTEO BI-FLEX ORAL) Take by mouth once daily. CALCIUM-VITAMIN D3 ORAL Take by mouth. 1200 calcium- 1000 units D3 (2) tablets twice daily acetaminophen (TYLENOL) 500 mg tablet Take 500 mg by mouth every 6 hours as needed. multivitamin ORAL tablet Take 1 tablet by mouth once daily. aspirin 81 mg ORAL Chew Take one(1) tablet daily. [facility] Score Please estimate the frequency of the following symptoms: Never-0, Rare-1, Occasional-2, Frequent-3, Daily-4, Constant*-5 Symptoms Subtotal Syncope/Near Syncope Score 0 Dizziness/Lightheadedness Score 2 Exercise Intolerance Score 0 Headache Score 0 Sleep Problems Score 3 Total Frequency Score 7 *For syncope/near syncope multiple episodes daily Please estimate the severity of the following symptoms: None-0, Minimal-1, Mild-2, Moderate-3, Severe-4, Intolerable-5 Symptoms Subtotal Palpitations/Tachycardia Score 0 Fatigue Score 2 Brain Fog Score 1 Shortness of Breath Score 1 GI Symptoms Score* 1 Total Severity Score 5 *GI symptoms include nausea, bloating, diarrhea, constipation, poor appetite, abdominal pain, early satiety Total of Both Sections: 12 Mary Ann Leal RN PHYSICAL EXAMINATION: [facility] 09/29/2008 General: Well appearing, in no acute distress. Skin: No clubbing, no cyanosis. Eyes: Extra ocular movements intact Oropharynx: Teeth in good repair. Neck: No jugular venous distention, no carotid bruits, carotids have a normal upstroke, no palpable thyromegaly. Lungs: Clear to auscultation bilaterally, no wheezing or rhonchi. Heart: Regular rhythm, PMI not displaced, S1, S2 normal, no S3, no S4, no heaves, no rub and no murmur. Abdomen: Soft, nontender, bowel sounds normal, no palpable organomegaly, no bruits. Extremities: No peripheral edema . Grade 2/4 distal pulses bilaterally. Neuro: Oriented to person, place and time, alert, cooperative, gait coordinated. CARDIOVASCULAR MEDICINE TESTING: IMPRESSION: 1. ICD (implantable cardioverter-defibrillator) in place - ICD9: V45.02, ICD10: Z95.810 (primary diagnosis) 2. Arrhythmogenic right ventricular cardiomyopathy (HCC) - ICD9: 425.4, ICD10: I42.8 3. 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 Chronic diastolic (congestive) heart failure (HCC) - ICD9: 428.32, 428.0, ICD10: I50.32 5. Nonrheumatic tricuspid valve regurgitation - ICD9: 424.2, ICD10: I36.1 6. Sinus node dysfunction (HCC) - ICD9: 427.81, ICD10: I49.5 7. NSVT (nonsustained ventricular tachycardia) (HCC) - ICD9: 427.1, ICD10: I47.29 PLAN AND RECOMMENDATIONS: Overall, Chris is doing well. We reviewed her echo from May, it appears the RV dysfunction was a bit more than the one a year ago, but cautioned this is a subjective measure. We reviewed her device check, she has about 2.7 years estimated battery. We discussed the generator replacement. We also addressed a few questions she had and discussed what things would be considered when the lead would need replaced, keep in mind her leads are functioning well, this was in response to her question about the possibility in the future. Will continue regular device checks and plan on a one year follow up visit. I personally interviewed, confirmed and edited the above information as obtained by others. CONTACT INFORMATION: Clarissa Tucker DO As a national referral center for Syncope and related conditions, seeing patients from across the country, we cannot provide work, FMLA, disability or other forms, or cardiac clearance. We will provide the office notes from the patient's most recent visit if they have not already been received, and other tests or evaluations performed here can be made available upon request. documented in this encounter [facility] 08-11-2024 Note [facility] 08-11-2024 Note [facility] 06-22-2024 Note [facility] 06-22-2024 History of Present illness Narrative Chief Complaint Patient presents with: Recheck: Left ankle sprain HPI Chris Ricardo is a 64 year old female who presents here today for recheck. Patient reports ankle pain and swelling improving. Has been wearing boot when active and doing ankle rotation exercises daily. Still has some pain on lateral left ankle. Past medical history, appointments, medications, allergies reviewed. Previous Medical History PAST MEDICAL HISTORY Diagnosis Date Abnormal mole AK (actinic keratosis) 10/17/2020 Ankle instability, left 06/08/2019 Arrhythmogenic right ventricular cardiomyopathy (HCC) 08/07/2023 Bee sting allergy 04/05/2020 Benign neoplasm of colon 04/16/2010 Tubular adenoma 04/16/12 Cataracts, bilateral 03/2020 Chronic constipation 06/13/2022 Chronic heart failure with preserved ejection fraction (HFpEF) (HCC) 08/07/2023 Chronic left shoulder pain 05/28/2018 Compound nevus 11/27/2020 Abd LLQ removed 11/2020 Congestive heart failure (HCC) 10/09/[address] Alcala: stage 2 Constipation Depression with anxiety 07/09/2017 Situational, Managed by Counseling. Diffuse cystic mastopathy Elevated blood sugar 05/01/2023 Encounter for gynecological examination 05/01/2023 Essential hypertension Family history of breast cancer 07/04/2016 Family history of malignant neoplasm of breast 05/07/2007 2 maternal aunts History of COVID-19 03/25/202201/2022 Insomnia, unspecified rare Left shoulder pain 03/11/2011 Low testosterone level in female 2010 Mixed hyperlipidemia 2006 was on simvastatin, was able to come off med. Nonrheumatic tricuspid valve regurgitation 01/31/2022 Osteopenia ++FHx osteoporosis Peroneal tendinitis of left lower extremity 08/27/2017 Personal history of colonic polyps 04/21/2013 tubular adenoma. 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 Tucker and Dr. Alcala: Cardiomyopathy. Had cardiac arrest, has a pace maker/defibulator. Is limited to what exercising she can do. Plantar fasciitis of left foot 08/27/2017 Plantar fasciitis of right foot 07/18/2016 Presence of combination internal cardiac defibrillator (ICD) and pacemaker 01/14/2017 Ptosis, left eyelid benign PTSD (post-traumatic stress disorder) 08/13/2018 Tinnitus, bilateral 10/23/2023 Unspecified closed fracture of ankle 2000 Ankle fracture left [place], [place] Urge incontinence Previous Surgical History PAST SURGICAL HISTORY Procedure Laterality Date APPENDECTOMY 1970 [place], [place] BLEPHAROPLASTY, UPPER EYELID Left 2017 BREAST BIOPSY 2007 left breast ([facility]) CARDIAC CATH 01/05/2017 normal COLONOSCOPY 04/27/2013 normal, repeat in 5 yrs d/t pers hx polyps and poss fam hx gi malignancy COLONOSCOPY 05/04/2018 repeat 10 yrs, Dr. Hatfield COLSC FLX W/RMVL OF TUMOR POLYP LESION SNARE TQ 04/16/2010 tubular adenoma at 70cm DILATION & CURETTAGE DX&/THER NONOBSTETRIC 09/2008 Dilation & curettage, Uterine Ablation with Novasure LEAD,PACEMAKER/DEFIB COMBO 01/06/2017 NOVASURE 09/2008 PRK Bilateral 01/2002 in [place] RADIOFREQUENCY ABLATION 01/03/2017 TONSILLECTOMY PRIMARY/SECONDARY <AGE 12 1970 [place]illectomy [place], [place] Family History FAMILY HISTORY Problem Relation Age of Onset Hypertension Mother dx age 30's Headache Mother Osteoporosis Mother Cataract Mother Lipids Mother Dementia Mother Alzheimer's Disease Father first symptoms around 70 Diabetes Father late 70's Hypertension Father Lipids Father Arthritis Father Cataract Father Osteoporosis Sister other (Abdominal Aortic Aneurysm) Maternal Grandmother Diabetes Paternal Grandmother Cancer Paternal Grandfather unknown Skin Cancer Daughter Breast Cancer Maternal Aunt x2 other (Abdominal Aortic Aneurysm) Maternal Aunt x2 Osteoporosis Maternal Aunt Osteoporosis Maternal Aunt Osteoporosis Maternal Aunt Osteoporosis Maternal Aunt other (Abdominal Aortic Aneurysm) Maternal Uncle Osteoporosis Maternal Uncle Osteoporosis Maternal Uncle Osteoporosis Maternal Uncle Osteoporosis Maternal Uncle Colon Cancer Other none other (cousin of blood clot; had dm, af and etoh) Other Patient Allergies ALLERGIES Allergen Reactions Bee Sting Swelling Omeprazole Other: See Comments vivid dreams Current Medications Current Outpatient Medications on File Prior to Visit Medication Sig Carboxymethylcellulose-Glycern (OPTIVE) 0.5-0.9 % drop Use 1 Drop in both eyes as needed. atorvastatin (LIPITOR) 10 mg tablet Take 1 tablet by mouth daily at bedtime. For cholesterol. empagliflozin (JARDIANCE) 10 mg tablet Take 1 tablet by mouth daily with breakfast. furosemide (LASIX) 40 mg tablet Take 1 tablet by mouth once daily. metoprolol succinate ER (TOPROL XL) 25 mg 24 hr tablet Take 1.5 tablets by mouth once daily. EPINEPHrine (AUVI-Q) 0.3 mg/0.3 mL auto-injector Inject 0.3 mL intramuscularly as needed. L. acidophilus/Bifid. animalis (PROBIOTIC) 5 billion cell cpSP Take 1 capsule by mouth once daily. glucosamine/chondr barrera A sod (OSTEO BI-FLEX ORAL) Take by mouth once daily. CALCIUM-VITAMIN D3 ORAL Take by mouth. 1200 calcium- 1000 units D3 (2) tablets twice daily acetaminophen (TYLENOL) 500 mg tablet Take 500 mg by mouth every 6 hours as needed. multivitamin ORAL tablet Take 1 tablet by mouth once daily. aspirin 81 mg ORAL Chew Take one(1) tablet daily. No current facility-administered medications on file prior to visit. Social History Social History Tobacco Use Smoking status: Former Current packs/day: 0.00 Average packs/day: 0.5 packs/day for 10.0 years (5.0 ttl pk-yrs) Types: Cigarettes Start date: 08/04/1978 Quit date: 08/04/1988 Years since quittin.9 Passive exposure: Never Smokeless tobacco: Never Tobacco comments: quit 32 years ago Vaping Use Vaping status: Never Used Substance Use Topics Alcohol use: No Drug use: No Review of Symptoms REVIEW OF SYSTEMS See hpi EXAM: BP 112/70 (BP Site: Left Arm, BP Position: Sitting, BP Cuff Size: Large Adult) Pulse 70 Temp 36.3 C (97.4 F) Resp 16 Wt 72.1 kg (159 lb) LMP 09/29/2008 SpO2 99% BMI 26.66 kg/m General Appearance: Well appearing, alert, in no acute distress, well-hydrated, well nourished.. Musculoskeletal: improvement in swelling evident. Still mild soft tissue swelling over the calcaneofibular ligament. ROM intact. Mild pain with plantar flexion. NVI. Health Maintenance List Cervical Cancer Screening due on 09/10/2024 Mammogram Screening due on 10/08/2024 Annual PCP Team Chronic Disease Visit due on 06/22/2025 BP Controlled (<130/80) due on 06/22/2025 Pneumococcal Vaccine(3 of 3 - PPSV23 or PCV20) due on 04/19/2026 Diabetes Screening due on 04/20/2027 Colorectal Cancer Screening due on 05/04/2028 Lipid Screening due on 04/20/2029 DTaP,Tdap,Td Vaccine(4 - Td or Tdap) due on 07/08/2033 Influenza Vaccine Completed RSV Vaccine Completed Hepatitis C Screening Completed Shingrix Vaccine Completed Covid-19 Vaccine Completed HIV Screening Discontinued Data reviewed ASSESSMENT/PLAN: 1. Sprain of ligament of left ankle, initial encounter - ICD9: 845.00, ICD10: S93.402A Can switch from boot to ankle brace at this point. Stressed continued ankle exercises to help with mobility but limit risk of re-injury for another 3-5 weeks. Patient to follow up in 3 weeks if not continuing to improve. Kelsie Doshi PA-C documented in this encounter [facility] 06-08-2024 Note [facility] 06-08-2024 History of Present illness Narrative Chief Complaint Patient presents with: left ankle pain: Patient twisted ankle while wakling on 06/01/24 HPI Chris Ricardo is a 64 year old female who presents here today for Above Complaints.. Patient reports that she twisted her ankle 1 week ago on some uneven sidewalk. Was starting to feel better. Then yesterday she did a 3 mile walk in the morning and her ankle still felt fine. She did a yoga like class then as well. Later in the day she felt pain return and went to sit carlos cross applesauce style and felt a sharp pain in the outside side of ankle. She has been taking tylenol as needed. Did not ice. Past medical history, appointments, medications, allergies reviewed. Previous Medical History PAST MEDICAL HISTORY Diagnosis Date Abnormal mole AK (actinic keratosis) 10/17/2020 Ankle instability, left 06/08/2019 Arrhythmogenic right ventricular cardiomyopathy (HCC) 08/07/2023 Bee sting allergy 04/05/2020 Benign neoplasm of colon 04/16/2010 Tubular adenoma 04/16/12 Cataracts, bilateral 03/2020 Chronic constipation 06/13/2022 Chronic heart failure with preserved ejection fraction (HFpEF) (HCC) 08/07/2023 Chronic left shoulder pain 05/28/2018 Compound nevus 11/27/2020 Abd LLQ removed 11/2020 Congestive heart failure (HCC) 10/09/[address] Alcala: stage 2 Constipation Depression with anxiety 07/09/2017 Situational, Managed by Counseling. Diffuse cystic mastopathy Elevated blood sugar 05/01/2023 Encounter for gynecological examination 05/01/2023 Essential hypertension Family history of breast cancer 07/04/2016 Family history of malignant neoplasm of breast 05/07/2007 2 maternal aunts History of COVID-19 03/25/202201/2022 Insomnia, unspecified rare Left shoulder pain 03/11/2011 Low testosterone level in female 2010 Mixed hyperlipidemia 2006 was on simvastatin, was able to come off med. Nonrheumatic tricuspid valve regurgitation 01/31/2022 Osteopenia ++FHx osteoporosis Peroneal tendinitis of left lower extremity 08/27/2017 Personal history of colonic polyps 04/21/2013 tubular adenoma. 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 Tucker and Dr. Alcala: Cardiomyopathy. Had cardiac arrest, has a pace maker/defibulator. Is limited to what exercising she can do. Plantar fasciitis of left foot 08/27/2017 Plantar fasciitis of right foot 07/18/2016 Presence of combination internal cardiac defibrillator (ICD) and pacemaker 01/14/2017 Ptosis, left eyelid benign PTSD (post-traumatic stress disorder) 08/13/2018 Tinnitus, bilateral 10/23/2023 Unspecified closed fracture of ankle 2000 Ankle fracture left [place], [place] Urge incontinence Previous Surgical History PAST SURGICAL HISTORY Procedure Laterality Date APPENDECTOMY 1971 [place], [place] BLEPHAROPLASTY, UPPER EYELID Left 2017 BREAST BIOPSY 2006 left breast ([facility]) CARDIAC CATH 01/05/2017 normal COLONOSCOPY 04/27/2013 normal, repeat in 5 yrs d/t pers hx polyps and poss fam hx gi malignancy COLONOSCOPY 05/04/2018 repeat 10 yrs, Dr. Hatfield COLSC FLX W/RMVL OF TUMOR POLYP LESION SNARE TQ 04/16/2010 tubular adenoma at 70cm DILATION & CURETTAGE DX&/THER NONOBSTETRIC 09/2008 Dilation & curettage, Uterine Ablation with Novasure LEAD,PACEMAKER/DEFIB COMBO 01/06/2017 NOVASURE 09/2008 PRK Bilateral 01/2002 in [place] RADIOFREQUENCY ABLATION 01/03/2017 TONSILLECTOMY PRIMARY/SECONDARY <AGE 12 1970 Tonsillectomy [place], [place] Family History FAMILY HISTORY Problem Relation Age of Onset Hypertension Mother dx age 30's Headache Mother Osteoporosis Mother Cataract Mother Lipids Mother Dementia Mother Alzheimer's Disease Father first symptoms around 70 Diabetes Father late 70's Hypertension Father Lipids Father Arthritis Father Cataract Father Osteoporosis Sister other (Abdominal Aortic Aneurysm) Maternal Grandmother Diabetes Paternal Grandmother Cancer Paternal Grandfather unknown Skin Cancer Daughter Breast Cancer Maternal Aunt x2 other (Abdominal Aortic Aneurysm) Maternal Aunt x2 Osteoporosis Maternal Aunt Osteoporosis Maternal Aunt Osteoporosis Maternal Aunt Osteoporosis Maternal Aunt other (Abdominal Aortic Aneurysm) Maternal Uncle Osteoporosis Maternal Uncle Osteoporosis Maternal Uncle Osteoporosis Maternal Uncle Osteoporosis Maternal Uncle Colon Cancer Other none other (cousin of blood clot; had dm, af and etoh) Other Patient Allergies ALLERGIES Allergen Reactions Bee Sting Swelling Omeprazole Other: See Comments vivid dreams Current Medications Current Outpatient Medications on File Prior to Visit Medication Sig Carboxymethylcellulose-Glycern (OPTIVE) 0.5-0.9 % drop Use 1 Drop in both eyes as needed. atorvastatin (LIPITOR) 10 mg tablet Take 1 tablet by mouth daily at bedtime. For cholesterol. empagliflozin (JARDIANCE) 10 mg tablet Take 1 tablet by mouth daily with breakfast. furosemide (LASIX) 40 mg tablet Take 1 tablet by mouth once daily. metoprolol succinate ER (TOPROL XL) 25 mg 24 hr tablet Take 1.5 tablets by mouth once daily. EPINEPHrine (AUVI-Q) 0.3 mg/0.3 mL auto-injector Inject 0.3 mL intramuscularly as needed. L. acidophilus/Bifid. animalis (PROBIOTIC) 5 billion cell cpSP Take 1 capsule by mouth once daily. glucosamine/chondr barrera A sod (OSTEO BI-FLEX ORAL) Take by mouth once daily. CALCIUM-VITAMIN D3 ORAL Take by mouth. 1200 calcium- 1000 units D3 (2) tablets twice daily acetaminophen (TYLENOL) 500 mg tablet Take 500 mg by mouth every 6 hours as needed. multivitamin ORAL tablet Take 1 tablet by mouth once daily. aspirin 81 mg ORAL Chew Take one(1) tablet daily. No current facility-administered medications on file prior to visit. Social History Social History Tobacco Use Smoking status: Former Current packs/day: 0.00 Average packs/day: 0.5 packs/day for 10.0 years (5.0 ttl pk-yrs) Types: Cigarettes Start date: 08/04/1978 Quit date: 08/04/1988 Years since quittin.8 Passive exposure: Never Smokeless tobacco: Never Tobacco comments: quit 32 years ago Vaping Use Vaping status: Never Used Substance Use Topics Alcohol use: No Drug use: No Review of Symptoms REVIEW OF SYSTEMS See hpi EXAM: BP 100/62 (BP Site: Left Arm, BP Position: Sitting, BP Cuff Size: Large Adult) Pulse 67 Temp 36.7 C (98 F) Resp 18 Wt 72.1 kg (159 lb) LMP 09/29/2008 SpO2 100% BMI 26.66 kg/m General Appearance: Well appearing, alert, in no acute distress, well-hydrated, well nourished.. Musculoskeletal: soft tissue swelling of lateral left ankle. Minimal tenderness to palp. + Pain with ROM. Worse with internal rotation and adduction.. NVI. Distal pulses intact.. Health Maintenance List Cervical Cancer Screening due on 09/10/2024 Mammogram Screening due on 10/08/2024 Annual PCP Team Chronic Disease Visit due on 05/18/2025 BP Controlled (<130/80) due on 05/18/2025 Pneumococcal Vaccine(3 of 3 - PPSV23 or PCV20) due on 04/19/2026 Diabetes Screening due on 04/20/2027 Colorectal Cancer Screening due on 05/04/2028 Lipid Screening due on 04/20/2029 DTaP,Tdap,Td Vaccine(4 - Td or Tdap) due on 07/08/2033 Influenza Vaccine Completed RSV Vaccine Completed Hepatitis C Screening Completed Shingrix Vaccine Completed Covid-19 Vaccine Completed HIV Screening Discontinued Data reviewed ASSESSMENT/PLAN: 1. Sprain of ligament of left ankle, initial encounter - ICD9: 845.00, ICD10: S93.402A Patient has an ankle boot at home. Discussed wearing boot for 2 weeks to help prevent reinjury. but Take off at home for ROM exercises . Follow up 2 weeks for recheck. Kelsie Doshi PA-C documented in this encounter [facility] 05-28-2024 Telephone encounter Note Please place updated order for mamm w/ desi to match reschedule annual. Thank you! [facility] 05-28-[address] updated order for mamm w/ desi to match reschedule annual. Thank you! documented in this encounter [facility] 05-18-2024 Instructions Alton Eisenberg MD - 05/18/2024 11:07 AM EDT Please get labs and urine test done on or after 11/05/2024 prior to your next visit. documented in this encounter [facility] 05-18-2024 Note [facility] 05-18-2024 History of Present illness Narrative Chief Complaint Patient presents with: Physical HPI Chris Ricardo is a 64 year old female who presents here today for Physical. Patient with hx of Arrhythmogenic right ventricular cardiomyopathy, depression with anxiety, hyperlipidemia, insomnia, CHF osteopenia as well as those reviewed and addressed below and in ROS. Patient sees Dr. Alcala Cardiology last visit 05/[address] Raygoza - Otolaryngology Patient has been doing ok. Was on a walk in November and not sure if she got to close to the edge and fell. No syncope. Broke her nose. Still has a lump on the left knee.. no longer tender but not any smaller. Past medical history, appointments, medications, allergies reviewed. Previous Medical History PAST MEDICAL HISTORY Diagnosis Date Abnormal mole AK (actinic keratosis) 10/17/2020 Ankle instability, left 06/08/2019 Arrhythmogenic right ventricular cardiomyopathy (HCC) 08/07/2023 Bee sting allergy 04/05/2020 Benign neoplasm of colon 04/16/2010 Tubular adenoma 04/16/12 Cataracts, bilateral 03/2020 Chronic constipation 06/13/2022 Chronic heart failure with preserved ejection fraction (HFpEF) (HCC) 08/07/2023 Chronic left shoulder pain 05/28/2018 Compound nevus 11/27/2020 Abd LLQ removed 11/2020 Congestive heart failure (HCC) 10/09/[address] Alcala: stage 2 Constipation Depression with anxiety 07/09/2017 Situational, Managed by Counseling. Diffuse cystic mastopathy Elevated blood sugar 05/01/2023 Essential hypertension Family history of breast cancer 07/04/2016 Family history of malignant neoplasm of breast 05/07/2007 2 maternal aunts History of COVID-19 03/25/202201/2022 Insomnia, unspecified rare Left shoulder pain 03/11/2011 Low testosterone level in female 2010 Mixed hyperlipidemia 2006 was on simvastatin, was able to come off med. Nonrheumatic tricuspid valve regurgitation 01/31/2022 Osteopenia ++FHx osteoporosis Peroneal tendinitis of left lower extremity 08/27/2017 Personal history of colonic polyps 04/21/2013 tubular adenoma. 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 Tucker and Dr. Alcala: Cardiomyopathy. Had cardiac arrest, has a pace maker/defibulator. Is limited to what exercising she can do. Plantar fasciitis of left foot 08/27/2017 Plantar fasciitis of right foot 07/18/2016 Presence of combination internal cardiac defibrillator (ICD) and pacemaker 01/14/2017 Ptosis, left eyelid benign PTSD (post-traumatic stress disorder) 08/13/2018 Tinnitus, bilateral 10/23/2023 Unspecified closed fracture of ankle 2000 Ankle fracture left [place], [place] Urge incontinence Previous Surgical History PAST SURGICAL HISTORY Procedure Laterality Date APPENDECTOMY 1971 [place], [place] BLEPHAROPLASTY, UPPER EYELID Left 2017 BREAST BIOPSY 2006 left breast ([facility]) CARDIAC CATH 01/05/2017 normal COLONOSCOPY 04/27/2013 normal, repeat in 5 yrs d/t pers hx polyps and poss fam hx gi malignancy COLONOSCOPY 05/04/2018 repeat 10 yrs, Dr. Hatfield COLSC FLX W/RMVL OF TUMOR POLYP LESION SNARE TQ 04/16/2010 tubular adenoma at 70cm DILATION & CURETTAGE DX&/THER NONOBSTETRIC 09/2008 Dilation & curettage, Uterine Ablation with Novasure LEAD,PACEMAKER/DEFIB COMBO 01/06/2017 NOVASURE 09/2008 PRK Bilateral 01/2002 in [place] RADIOFREQUENCY ABLATION 01/03/2017 TONSILLECTOMY PRIMARY/SECONDARY <AGE 12 1970 [place]illectomy [place], [place] Family History FAMILY HISTORY Problem Relation Age of Onset Hypertension Mother dx age 30's Headache Mother Osteoporosis Mother Cataract Mother Lipids Mother Dementia Mother Alzheimer's Disease Father first symptoms around 70 Diabetes Father late 70's Hypertension Father Lipids Father Arthritis Father Cataract Father other (Abdominal Aortic Aneurysm) Maternal Grandmother Diabetes Paternal Grandmother Cancer Paternal Grandfather unknown Skin Cancer Daughter Breast Cancer Maternal Aunt x2 other (Abdominal Aortic Aneurysm) Maternal Aunt x2 Osteoporosis Maternal Aunt Osteoporosis Maternal Aunt Osteoporosis Maternal Aunt Osteoporosis Maternal Aunt other (Abdominal Aortic Aneurysm) Maternal Uncle Osteoporosis Maternal Uncle Osteoporosis Maternal Uncle Osteoporosis Maternal Uncle Osteoporosis Maternal Uncle Colon Cancer Other none other (cousin of blood clot; had dm, af and etoh) Other Patient Allergies ALLERGIES Allergen Reactions Bee Sting Swelling Omeprazole Other: See Comments vivid dreams Current Medications Current Outpatient Medications on File Prior to Visit Medication Sig atorvastatin (LIPITOR) 10 mg tablet Take 1 tablet by mouth daily at bedtime. For cholesterol. empagliflozin (JARDIANCE) 10 mg tablet Take 1 tablet by mouth daily with breakfast. furosemide (LASIX) 40 mg tablet Take 1 tablet by mouth once daily. metoprolol succinate ER (TOPROL XL) 25 mg 24 hr tablet Take 1.5 tablets by mouth once daily. EPINEPHrine (AUVI-Q) 0.3 mg/0.3 mL auto-injector Inject 0.3 mL intramuscularly as needed. L. acidophilus/Bifid. animalis (PROBIOTIC) 5 billion cell cpSP Take 1 capsule by mouth once daily. glucosamine/chondr barrera A sod (OSTEO BI-FLEX ORAL) Take by mouth once daily. CALCIUM-VITAMIN D3 ORAL Take by mouth. 1200 calcium- 1000 units D3 (2) tablets twice daily acetaminophen (TYLENOL) 500 mg tablet Take 500 mg by mouth every 6 hours as needed. multivitamin ORAL tablet Take 1 tablet by mouth once daily. aspirin 81 mg ORAL Chew Take one(1) tablet daily. Carboxymethylcellulose-Glycern (OPTIVE) 0.5-0.9 % drop Use 1 Drop in both eyes as needed. No current facility-administered medications on file prior to visit. Social History Social History Tobacco Use Smoking status: Former Current packs/day: 0.00 Average packs/day: 0.5 packs/day for 10.0 years (5.0 ttl pk-yrs) Types: Cigarettes Start date: 08/04/1978 Quit date: 08/04/1988 Years since quittin.8 Passive exposure: Never Smokeless tobacco: Never Tobacco comments: quit 32 years ago Vaping Use Vaping status: Never Used Substance Use Topics Alcohol use: No Drug use: No Review of Symptoms REVIEW OF SYSTEMS GENERAL: No weight loss, malaise or fevers HEENT: Negative for frequent or significant headaches, No changes in hearing or vision, no nose bleeds or other nasal problems NECK: Negative for lumps, goiter, pain and significant neck swelling RESPIRATORY: Negative for cough, hemoptysis, wheezing, COPD, occasional fernandez with stairs but not every time. CARDIOVASCULAR: Negative for chest pain, increased leg swelling, hypertension, CHF or palpitations GI: No nausea, vomiting, or diarrhea, No heartburn or reflux symptoms, and no blood : No history of dysuria, frequency or blood MUSCULOSKELETAL: Negative for joint pain or swelling, back pain or muscle pain SKIN: Negative for lesions, rash, and itching PSYCH: Negative for sleep disturbance, mood disorder and recent psychosocial stressors HEMATOLOGY/LYMPHOLOGY: Negative for prolonged bleeding, bruising easily or swollen nodes ENDOCRINE: Negative for cold or heat intolerance, polyuria, polydipsia and goiter NEURO: No history of headaches, syncope, paralysis, seizures or tremors EXAM: BP 114/74 (BP Site: Right Arm, BP Position: Sitting, BP Cuff Size: Regular Adult) Pulse 60 Resp 16 Ht 164.5 cm (5' 4.75) Wt 70.8 kg (156 lb) LMP 09/29/2008 BMI 26.16 kg/m Last 6 Encounter Wt Readings: Date: Wt: 05/18/2024 70.8 kg (156 lb) 05/12/2024 69.4 kg (153 lb) 04/09/2024 71.2 kg (157 lb) 12/11/2023 71.7 kg (158 lb) 12/08/2023 70.3 kg (155 lb) 11/27/2023 69.9 kg (154 lb) General Appearance: Well appearing, alert, in no acute distress, well-hydrated, well nourished.. Skin: Skin color, texture, turgor normal, no suspicious rashes or lesions. Head: Normocephalic, no masses, lesions, tenderness or abnormalities. Eyes: Anicteric sclera. Pupils are equally round and reactive to light. Extraocular movements are intact. . Ears: External ears normal, canals clear. Nose/Sinuses: Nares normal, septum midline, mucosa normal, no drainage or sinus tenderness. Oropharynx: Lips, mucosa, and tongue normal, teeth and gums normal, oropharynx normal. Neck: Supple, no adenopathy; thyroid symmetric, normal size, no bruits. Lungs: Lungs clear to auscultation. No wheezing, rhonchi, rales.. Heart: RRR without murmur, gallop, or rubs. No ectopy. Abdomen: Normal abdominal exam, Abdomen soft, non-tender. Bowel sounds normal. No masses, organomegaly. Extremities: No deformities, edema, skin discoloration, Good capillary refill. . Musculoskeletal: Muscular strength intact, No joint swelling, deformity, or tenderness. Peripheral Pulses: Normal. Neurologic: Gait normal. Reflexes normal and symmetric. Sensation to light touch and crainal nerves 2-12 intact.. Health Maintenance List BP Controlled (<130/80) Never done Cervical Cancer Screening due on 09/10/2024 Mammogram Screening due on 10/08/2024 RSV Vaccine(1 - Risk 60-74 years 1-dose series) due on 10/30/2024 Annual PCP Team Chronic Disease Visit due on 04/09/2025 Pneumococcal Vaccine(3 of 3 - PPSV23 or PCV20) due on 04/19/2026 Diabetes Screening due on 04/20/2027 Colorectal Cancer Screening due on 05/04/2028 Lipid Screening due on 04/20/2029 DTaP,Tdap,Td Vaccine(4 - Td or Tdap) due on 07/08/2033 Influenza Vaccine Completed Hepatitis C Screening Completed Shingrix Vaccine Completed Covid-19 Vaccine Completed HIV Screening Discontinued Data reviewed Latest Ref Rng 04/16/2023 05/01/2023 10/22/2023 04/20/2024 WBC 3.70 - 11.00 k/uL 4.61 RBC 3.90 - 5.20 m/uL 5.12 Hemoglobin 11.5 - 15.5 g/dL 14.7 Hematocrit 36.0 - 46.0 % 47.8 (H) MCV 80.0 - 100.0 fL 93.4 MCH 26.0 - 34.0 pg 28.7 MCHC 30.5 - 36.0 g/dL 30.8 RDW-CV 11.5 - 15.0 % 14.2 Platelet Count 150 - 400 k/uL 165 MPV 9.0 - 12.7 fL 11.9 Neut% % 50.3 Abs Neut (ANC) 1.45 - 7.50 k/uL 2.32 Lymph% % 38.0 Abs Lymph 1.00 - 4.00 k/uL 1.75 [place]% % 9.3 Abs [place] <0.87 k/uL 0.43 Eosin% % 1.5 Abs Eosin <0.46 k/uL 0.07 Baso% % 0.7 Abs Baso <0.11 k/uL 0.03 Immature Gran % % 0.2 IMMATURE GRANS (ABS) <0.10 k/uL <0.03 NRBC /100 WBC 0.0 Absolute nRBC <0.01 k/uL <0.01 DTYPE Auto Protein, Total 6.3 - 8.0 g/dL 6.7 6.7 6.9 Albumin 3.9 - 4.9 g/dL 4.3 4.3 4.1 Calcium 8.5 - 10.2 mg/dL 9.8 9.7 9.4 Bilirubin, Total 0.2 - 1.3 mg/dL 0.3 0.4 0.3 Alkaline Phosphatase 34 - 123 U/L 82 75 86 AST 13 - 35 U/L 23 22 25 ALT 7 - 38 U/L 19 15 30 Glucose 74 - 99 mg/dL 120 (H) 80 83 BUN 7 - 21 mg/dL 19 23 (H) 25 (H) Creatinine 0.58 - 0.96 mg/dL 0.91 0.94 0.99 (H) Sodium 136 - 144 mmol/L 140 144 143 Potassium 3.7 - 5.1 mmol/L 4.7 4.5 4.5 Chloride 98 - 107 mmol/L 103 106 (H) 103 CO2 22 - 30 mmol/L 28 27 30 Anion Gap 8 - 15 mmol/L 9 11 10 eGFR >=60 mL/min/1.73m 71 68 64 Total Cholesterol, Nonfasting <200 mg/dL 151 161 159 Triglycerides, Nonfasting <150 mg/dL 100 111 100 HDL Cholesterol, Nonfasting >39 mg/dL 47 48 51 LDL Cholesterol, Nonfasting <100 mg/dL 84 91 88 Non HDL Cholesterol, Nonfasting <130 mg/dL 104 113 108 VLDL Cholesterol, Nonfasting <30 mg/dL 20 22 20 Total Chol/HDL Ratio, Nonfasting <5.10 mg/dL 3.21 3.35 3.12 LDL/HDL Ratio, Nonfasting <2.54 mg/dL 1.79 1.90 1.73 Hemoglobin A1C 4.3 - 5.6 % 5.4 5.5 Estimated Average Glucose mg/dL 108 111 Magnesium 1.7 - 2.3 mg/dL 2.1 2.3 Vitamin B12 232 - 1,245 pg/mL 855 904 Hemoglobin A1C (POCT) 4.2 - 5.6 % 5.4 TSH 0.270 - 4.200 mIU/L 2.370 A/P ASSESSMENT/PLAN: 1. Well adult exam - ICD9: V70.0, ICD10: Z00.00 (primary diagnosis) - Counseled on healthy diet and regular exercise - Follow up for annual exam in one year 2. Mixed hyperlipidemia - ICD9: 272.2, ICD10: E78.2 - Controlled - Continue current medications - Counseled on healthy diet and regular exercise - Discussed need for and benefit of weight loss. BMI 26.16 kg/(m^2) 3. Elevated blood sugar - ICD9: 790.29, ICD10: R73.9 - controlled wtih life style changes. 4. Gastroesophageal reflux disease without esophagitis - ICD9: 530.81, ICD10: K21.9 - controlled wih diet. 5. 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 Recent studies were improved with Echo and BNP. 6. Arrhythmogenic right ventricular cardiomyopathy (HCC) - ICD9: 425.4, ICD10: I42.8 - as per #5 7. Chronic diastolic heart failure (HCC) - ICD9: 428.32, ICD10: I50.32 - as per #5 8. Presence of combination internal cardiac defibrillator (ICD) and pacemaker - ICD9: V45.02, ICD10: Z95.810 - as per #5 9. Sinus node dysfunction (HCC) - ICD9: 427.81, ICD10: I49.5 - as per #%. Has pace maker. 10. Depression with anxiety - ICD9: 300.4, ICD10: F41.8 - stable and not needing medical management 11. PTSD (post-traumatic stress disorder) - ICD9: 309.81, ICD10: F43.10 - as per #10 12. Urge incontinence - ICD9: 788.31, ICD10: N39.41 - stable not on meds. F/u 6 months routine check Lipid, A1c and CMP prior Alton Eisenberg MD documented in this encounter [facility] 05-12-2024 Instructions Dave Alcala MD - 05/12/2024 12:09 PM EDT -Continue taking Jardiance, as it has shown improvement in your symptoms. - Your medications (Atorvastatin, Jardiance, Lasix, and Toprol) have been refilled for a year and sent to [facility]. - Monitor for any worsening symptoms, such as difficulty walking short distances, increased fatigue, or new arrhythmias. If you experience any of these, please contact me immediately. - Your next follow-up appointment will be in one year, with the same testing as this year. documented in this encounter [facility] 05-12-2024 History of Present illness Narrative Images from the original note were not included. [facility] For Heart Failure SECTION OF HEART FAILURE and CARDIAC TRANSPLANT MEDICINE OUTPATIENT VISIT DATE May 12, 2024 OUTPATIENT VISIT TYPE Established Patient PRIMARY CARE PHYSICIAN: Alton Eisenberg [address] [place] [address] CHIEF COMPLAINT: Established follow-up NURSING INTAKE (Patient s concerns and/or recent hospitalizations/ER visits): HF Nursing Assessment: Interim Hospitalizations and/or ER visits:no Chest Pain: no Skipping or irregular heartbeats: no Shortness of breath at rest: no Shortness of breath with activity: sometimes Cough: yes Waking up in the middle of the night gasping for air: no Lightheadedness or dizziness: if moving quickly Feeling like you are going to pass out: no Actually passing out: no Poor energy level: yes Unintentional weight gain: yes Unintentional weight loss: no Swelling in your legs,feet, abdomen: hands/legs.abdomen Filling up quickly when you eat: no HISTORY OF PRESENT ILLNESS: Ms. Ricardo is 63 year old female with history of ARVC (PKP2 mutation), right ventricular dilation, moderate tricuspid regurgitation, VT s/p ICD and PTSD who presents as an established visit in heart failure clinic. Patient was last seen by myself on 11/27/23. Patient is a 64-year-old female with a history of arrhythmogenic right ventricular cardiomyopathy (ARVC) presenting for follow-up. She reports no major changes since her last visit in the spring but continues to experience fatigue. Despite this, she maintains an active lifestyle, walking at least 3 miles daily and 5-6 miles once a week on the [facility]. Recent echocardiogram results show stable findings compared to August, with moderate tricuspid regurgitation, normal LVEF at 60%, and mild to moderate RV dysfunction. Strain analysis remains unchanged. An extended rhythm monitor revealed a low PVC burden of 1.3%. She is currently participating in a gene therapy study for ARVC but does not meet the threshold for arrhythmias required for the intervention phase. She remains under long-term follow-up. She expresses concern about the possibility of a heart transplant, which was discussed in previous visits. She is reassured that her current condition does not necessitate a transplant, but she would be an excellent candidate if her symptoms worsen. She reports improvement with Jardiance and continues to take atorvastatin, Lasix, and Toprol XL 37.5 mg (1.5 tablets daily). Recent labs show NT-proBNP at 129 pg/mL, down from 223 pg/mL ten months ago. Kidney function and cholesterol panel are normal, with LDL at 88 mg/dL. In terms of past medical history: Patient notes that he cardiac history started in 1993. She had a work-up in the at that time due to recurrent lightheadedness/dizziness. She was found to have sinus bradycardia at that time. Stress test, echocardiogram, nuclear testing was normal. In 2000 as part of the she had traveled to [place] and had an episode of stress and went to see the doctor at that time and was found to have PACs. In 2016, her daughter was about to graduate from college and she was training for a hiking trip in [place]. The night before she left she woke up with chest pressure and nausea/vomiting. She called 911 and went [place]. She was found to be in sustained VT with LBBB. She underwent comprehensive testing including a heart cath and cardiac MRI. There was no significant CAD but an area of akinesis on her MRI concerning for ARVC. She underwent and EP procedure 01/03/2017 and the were able to modify an area of scar of the inferior, free wall and inferoseptum of the RV. Though the VT was not eliminated, it was modified. Reportedly, the VT was not pace terminable prior to but was after the procedure. She had a dual chamber ICD implant 01/06/2017 MDT MRI and has done well from an arrhythmia perspective on beta el. She was originally on Toprol XL 50mg but had lethargy. But she was able to tolerate Toprol XL 25mg daily. Genetic testing + PKP2. She notes feeling well and but generally is able to stay active but does have to take an occasional nap. She follows with Dr. Tucker for her VT. She has never had an ICD shocks. She has had swelling in her thighs and lower abdomen. She notes this is correlated to when she goes out to eat and has a lot of salt. Denies any orthopnea, PND, lightheadedness/dizziness, or syncope. PAST MEDICAL HISTORY Diagnosis Date Abnormal mole AK (actinic keratosis) 10/17/2020 Ankle instability, left 06/08/2019 Arrhythmogenic right ventricular cardiomyopathy (HCC) 08/07/2023 Bee sting allergy 04/05/2020 Benign neoplasm of colon 04/16/2010 Tubular adenoma 04/16/12 Cataracts, bilateral 03/2020 Chronic constipation 06/13/2022 Chronic heart failure with preserved ejection fraction (HFpEF) (HCC) 08/07/2023 Chronic left shoulder pain 05/28/2018 Compound nevus 11/27/2020 Abd LLQ removed 11/2020 Congestive heart failure (HCC) 10/09/[address] Alcala: stage 2 Constipation Depression with anxiety 07/09/2017 Situational, Managed by Counseling. Diffuse cystic mastopathy Elevated blood sugar 05/01/2023 Essential hypertension Family history of breast cancer 07/04/2016 Family history of malignant neoplasm of breast 05/07/2007 2 maternal aunts History of COVID-19 03/25/202201/2022 Insomnia, unspecified rare Left shoulder pain 03/11/2011 Low testosterone level in female 2010 Mixed hyperlipidemia 2006 was on simvastatin, was able to come off med. Nonrheumatic tricuspid valve regurgitation 01/31/2022 Osteopenia ++FHx osteoporosis Peroneal tendinitis of left lower extremity 08/27/2017 Personal history of colonic polyps 04/21/2013 tubular adenoma. 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 Tucker [address] Dr. Alcala: Cardiomyopathy. Had cardiac arrest, has a pace maker/defibulator. Is limited to what exercising she can do. Plantar fasciitis of left foot 08/27/2017 Plantar fasciitis of right foot 07/18/2016 Presence of combination internal cardiac defibrillator (ICD) and pacemaker 01/14/2017 Ptosis, left eyelid benign PTSD (post-traumatic stress disorder) 08/13/2018 Tinnitus, bilateral 10/23/2023 Unspecified closed fracture of ankle 2000 Ankle fracture left [place], [place] Urge incontinence PAST SURGICAL HISTORY Procedure Laterality Date APPENDECTOMY 1971 [place], [place] BLEPHAROPLASTY, UPPER EYELID Left 2017 BREAST BIOPSY 2007 left breast ([place]ma) CARDIAC CATH 01/05/2017 normal COLONOSCOPY 04/27/2013 normal, repeat in 5 yrs d/t pers hx polyps and poss fam hx gi malignancy COLONOSCOPY 05/04/2018 repeat 10 yrs, Dr. Liu HALLSC FLX W/RMVL OF TUMOR POLYP LESION SNARE TQ 04/16/2010 tubular adenoma at 70cm DILATION & CURETTAGE DX&/THER NONOBSTETRIC 09/2008 Dilation & curettage, Uterine Ablation with Novasure LEAD,PACEMAKER/DEFIB COMBO 01/06/2017 NOVASURE 09/2008 PRK Bilateral 01/2002 in [place] RADIOFREQUENCY ABLATION 01/03/2017 TONSILLECTOMY PRIMARY/SECONDARY <AGE 12 1970 Tonsillectomy [place], [place] SOCIAL HISTORY Social History Tobacco Use Smoking status: Former Current packs/day: 0.00 Average packs/day: 0.5 packs/day for 10.0 years (5.0 ttl pk-yrs) Types: Cigarettes Start date: 08/04/1978 Quit date: 08/04/1988 Years since quittin.7 Passive exposure: Never Smokeless tobacco: Never Tobacco comments: quit 32 years ago Vaping Use Vaping status: Never Used Substance Use Topics Alcohol use: No Drug use: No FAMILY HISTORY Problem Relation Age of Onset Hypertension Mother dx age 30's Headache Mother Osteoporosis Mother Cataract Mother Lipids Mother Dementia Mother Alzheimer's Disease Father first symptoms around 70 Diabetes Father late 70's Hypertension Father Lipids Father Arthritis Father Cataract Father other (Abdominal Aortic Aneurysm) Maternal Grandmother Diabetes Paternal Grandmother Cancer Paternal Grandfather unknown Skin Cancer Daughter Breast Cancer Maternal Aunt x2 other (Abdominal Aortic Aneurysm) Maternal Aunt x2 Osteoporosis Maternal Aunt Osteoporosis Maternal Aunt Osteoporosis Maternal Aunt Osteoporosis Maternal Aunt other (Abdominal Aortic Aneurysm) Maternal Uncle Osteoporosis Maternal Uncle Osteoporosis Maternal Uncle Osteoporosis Maternal Uncle Osteoporosis Maternal Uncle Colon Cancer Other none other (cousin of blood clot; had dm, af and etoh) Other ALLERGIES: ALLERGIES Allergen Reactions Bee Sting Swelling Omeprazole Other: See Comments vivid dreams CURRENT MEDICATIONS: metoprolol succinate ER (TOPROL XL) 25 mg 24 hr tablet Take 1.5 tablets by mouth once daily. atorvastatin (LIPITOR) 10 mg tablet Take 1 tablet by mouth daily at bedtime. For cholesterol. EPINEPHrine (AUVI-Q) 0.3 mg/0.3 mL auto-injector Inject 0.3 mL intramuscularly as needed. empagliflozin (JARDIANCE) 10 mg tablet Take 1 tablet by mouth daily with breakfast. furosemide (LASIX) 40 mg tablet Take 1 tablet by mouth once daily. L. acidophilus/Bifid. animalis (PROBIOTIC) 5 billion cell cpSP Take 1 capsule by mouth once daily. glucosamine/chondr barrera A sod (OSTEO BI-FLEX ORAL) Take by mouth once daily. CALCIUM-VITAMIN D3 ORAL Take by mouth. 1200 calcium- 1000 units D3 (2) tablets twice daily acetaminophen (TYLENOL) 500 mg tablet Take 500 mg by mouth every 6 hours as needed. multivitamin ORAL tablet Take 1 tablet by mouth once daily. aspirin 81 mg ORAL Chew Take one(1) tablet daily. REVIEW OF SYSTEMS: CONSTITUTION: Positive for: Night sweats and Recent weight change Negative for: Fever HEENT: Negative for: Hearing loss RESPIRATORY: Positive for: Cough Negative for: Difficulty breathing GASTROINTESTINAL: Positive for: Abdominal distention and Early satiety Negative for: Melena, Nausea and Diarrhea MUSCULOSKELETAL: Negative for: Arthralgias and Myalgias NEUROLOGICAL: Negative for: Headaches and Dizziness SKIN: Negative for: Rash EYES: Negative for: Visual disturbance CARDIOVASCULAR: Positive for: Leg swelling Negative for: Chest pain, Arrhythmia and Pre-syncope GENITOURINARY: Negative for: Difficulty urinating PATIENT ENTERED DATA: 08/05/2023 11/20/2023 05/06/2024 KCCQ-12 Scores Physical Limitation Score 91.67 (Class I Heart Failure ) 100 (Class I Heart Failure ) 91.67 (Class I Heart Failure ) Symptom Frequency Score 79.17 (Class II Heart Failure ) 93.75 (Class I Heart Failure ) 89.58 (Class I Heart Failure ) Quality of Life Score 87.5 (Good to Excellent Quality of Life) 87.5 (Good to Excellent Quality of Life) 87.5 (Good to Excellent Quality of Life) Social Limitation Score 91.67 (Class I Heart Failure) 100 (Class I Heart Failure) 100 (Class I Heart Failure) Overall Summary Score 87.5 (Class I Heart Failure ) 95.31 (Class I Heart Failure ) 92.19 (Class I Heart Failure ) 08/05/2023 11/20/2023 05/06/2024 PHQ-9 Score 2 3 4 08/05/2023 10/26/2023 04/09/2024 PROMIS Global Health - (T-Scores - the mean of general population = 50. Five points is a clinically meaningful difference.) Physical T-Score 50.8 57.7 54.1 Mental T-Score 53.3 62.5 59 PHYSICAL EXAMINATION: BP 121/82 (BP Site: Left Arm, BP Position: Sitting, BP Cuff Size: Regular Adult) Pulse 68 Resp 15 Ht 165.1 cm (5' 5) Wt 69.4 kg (153 lb) LMP 09/29/2008 SpO2 98% BMI 25.46 kg/m General: Alert & oriented, no acute distress Skin: Normal HEENT: Pupils equal, round. Oral cavity, oropharynx clear Neck: Supple, no mass Breast: Deferred Respiratory: Clear to auscultation, bilaterally Cardiovascular: Jugular venous pressure normal. Regular rate and rhythm, normal S1 and S2, no murmurs or added sounds Abdomen: Soft, non-tender, non-distended, no masses palpable, no hepatosplenomegaly, normal bowel sounds Genitourinary: Deferred MSK: No joint swelling, erythema, or tenderness Extremities: No clubbing, cyanosis, or edema CARDIOVASCULAR MEDICINE TESTING: I have personally reviewed the Laboratory Testing and Echocardiogram. Labs & Tests: - NT-proBNP (April): 129 pg/mL - NT-proBNP (10 months ago): 223 pg/mL - Cholesterol Panel (04/20): LDL 88 mg/dL POCs: - Extended Rhythm Monitor: PVC burden of 1.3%, below the threshold for inclusion in the gene therapy study. Imaging: - Echocardiogram: Ejection fraction 60%, moderate tricuspid regurgitation, mild to moderate RV dysfunction. No significant changes compared to August. Last ECHO Result Conclusion ECHO Collected: 05/12/2024 9:56 AM (Final result) Impression: CONCLUSIONS: - Exam indication: Arrhythmogenic right ventricular cardiomyopathy - The left ventricle is normal in size. Left ventricular systolic function is normal. EF = 60 5% (2D biplane) Normal left ventricular diastolic function. - The right ventricle is dilated. Right ventricular systolic function is moderately decreased. Prominent RV trabeculations and segments of RV free wall/ RVOT akinesis consistent with known diagnosis of ARVC. - The right atrial cavity is dilated. - There is moderate (2+ - 3+) tricuspid valve regurgitation caused by annular dilatation. - Estimated right ventricular systolic pressure is likely underestimated due to a weak or incomplete tricuspid regurgitation signal and is, at least, 22 mmHg consistent with normal pulmonary artery pressures. Estimated right atrial pressure is 3 mmHg based on IVC assessment. - Exam was compared with the prior CC echocardiographic exam performed on 08/06/2023. There is no significant change on direct comparison. * * * Final * * * Last EKG Result Conclusion ECG COMPLETE Collected: 05/12/2024 9:02 AM (Preliminary result) Impression: SINUS RHYTHM WITH 1ST DEGREE AV BLOCK POSSIBLE LEFT ATRIAL ENLARGEMENT LOW VOLTAGE QRS, CONSIDER PULMONARY DISEASE, PERICARDIAL EFFUSION, OR NORMAL VARIANT BORDERLINE ECG Cardiac MRI 01/06/2017: FINDINGS: The right ventricle is abnormally dilated. On the 4-chamber view at end diastole, the right ventricle measures 5.3 cm in cavitary diameter, while the left ventricle measures 4.7 cm. There is also straightening of the interventricular septum. Right ventricle appears mildly hypertrabeculated, although the free wall is suspected to be somewhat thinned. The dedicated ARVD protocol was not performed, and T1-weighted images were therefore not obtained to evaluate for fatty infiltration. On the short-axis cine images, there are several foci of bulging of the right ventricular free wall during systole, and there is also abnormal hypokinesis of the right ventricle with slight irregularity of the wall shown on the 4-chamber cine images. On delayed postcontrast images, there is suspected to be multifocal abnormal enhancement of the right ventricular myocardium, although there is artifact, limiting this determination. Right ventricular end-diastolic volume normalized to patient surface area of 1.79 meters squared is 134 milliliters/meter squared. Based on endocardial contours, the right ventricular ejection fraction is probably underestimated but appears to be significantly less than 40%. The left ventricle demonstrates normal myocardial thickness without left ventricular segmental wall motion abnormalities. Based on endocardial contours, the left ventricular ejection fraction is 56% with an end-diastolic volume of 157 mL (normal 52-141), and systolic volume of 69 mL (normal 13-51), and stroke volume 88 mL (normal 33-97). No definite abnormal left ventricular myocardial enhancement. There is a minimal amount of pericardial fluid. Small pleural effusions are present, right greater than left. IMPRESSION: Abnormal right ventricular dilatation with multifocal dyskinesis and decreased systolic function, as well as suspected foci of abnormal right ventricular enhancing fibrosis. MRI findings are suggestive of arrhythmogenic right ventricular cardiomyopathy/dysplasia and fulfill one major criterion according to 2010 task force criteria. LHC 01/05/2017: LMCA within normal limits LMCA within normal limits No angiographic evidence of plaque in the LMCA, LAD, Circumflex or RCA systems. LAD within normal limits CIRC within normal limits RCA within normal limits TTE 01/04/2017: Left Ventricle: The left ventricular chamber size is normal. There is no left ventricular hypertrophy observed. Global left ventricular wall motion and contractility are within normal limits. There is normal left ventricular systolic function. The estimated ejection fraction is 55-60%. The ejection fraction is calculated to be 57% using the Method of Disks. No regional wall motion abnormalities are evident. Left Atrium: The left atrial chamber size is normal. A patent foramen ovale is not demonstrated by color Doppler. Right Ventricle: The right ventricular chamber size and systolic function are within normal limits. The right ventricular cavity size is normal. The right ventricular global systolic function is normal. Right Atrium: The right atrial cavity size is normal. Aortic Valve: The aortic valve is trileaflet. Mild aortic leaflet calcification is visualized. The aortic valve leaflets appear mildly sclerotic. There is no hemodynamically significant stenosis. There is a trace of aortic regurgitation. Mitral Valve: The mitral valve leaflets appear normal. There is mild mitral annular calcification. There is no evidence of mitral valve prolapse. There is no evidence of mitral stenosis. There is trivial physiological regurgitation of the mitral valve. Tricuspid Valve: The tricuspid valve leaflets are normal. There is mild tricuspid regurgitation. No pulmonary hypertension is noted. Pulmonic Valve: The pulmonic valve appears grossly normal in structure and function. Pericardium: There is no pericardial effusion. Aorta: The aortic root is normal in diameter. Venous: There is less than 50% respiratory change in the inferior vena cava dimension. IMPRESSION: Ms. Ricardo is 64 year old female with history of ARVC (PKP2 mutation), right ventricular dilation, moderate tricuspid regurgitation, VT s/p ICD and PTSD who presents for an established visit in heart failure clinic. NYHA Functional Class: II Stage: C heart failure Target weight: 155lbs 1. ARVC 2. Right ventricular dilation 3. Tricuspid regurgitation 4. VT 5. PTSD 6. 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 -Echocardiogram 12/04/2021 shows moderate RV dysfunction and moderate tricuspid regurgitation, compared to cardiac MRI in 2016 RV function has declined but unclear about duration of RV dysfunciton -TTE today shows unchanged moderate TR and RV function. No need for intervention at this time. Condition remains stable. Recent echocardiogram shows no significant changes compared to August, with moderate tricuspid regurgitation and mild to moderate RV dysfunction. Ejection fraction is normal at 60%. Extended rhythm monitor showed a very low PVC burden of 1.3%. -No indication for advanced therapies at this time, but will continue to monitor RV function and signs of LV function going forward given known ARVC. -Screened for [facility] ARVC PKP2 study 11/27/23 - Continue current medications: Jardiance, atorvastatin, Lasix, and metoprolol. - Renewed prescriptions for one year, sent to [facility]. - Follow-up in one year with repeat echocardiogram and labs. - Monitor for worsening symptoms, RV failure, or arrhythmias; patient to contact if any issues arise. # Chronic heart failure with preserved ejection fraction (HFpEF) (HCC) (I50.32) # Chronic diastolic (congestive) heart failure (HCC) (I50.32) # Chronic diastolic heart failure (HCC) (I50.32) Condition is stable. Recent labs show NT-proBNP at 129, down from 223 ten months ago. Kidney function remains normal. No edema noted on physical exam. - Continue current medications: Jardiance, atorvastatin, Lasix, and metoprolol. - Renewed prescriptions for one year, sent to [facility]. - Follow-up in one year with repeat echocardiogram and labs. - Monitor for worsening symptoms; patient to contact if any issues arise. # Nonrheumatic tricuspid valve regurgitation (I36.1) Moderate tricuspid regurgitation noted on recent echocardiogram, unchanged from August. - Continue current management. - Follow-up in one year with repeat echocardiogram. # Presence of combination internal cardiac defibrillator (ICD) and pacemaker (Z95.810) Device functioning appropriately. Recent extended rhythm monitor showed a very low PVC burden of 1.3%. - Continue current management. - Follow-up in one year with repeat echocardiogram and labs. # Hypertension, essential (I10) Condition is well-controlled. - Continue current medications: Jardiance, atorvastatin, Lasix, and metoprolol. - Renewed prescriptions for one year, sent to [facility]. - Follow-up in one year with repeat echocardiogram and labs. Heart Failure specific medications (list current, note updates or changes, note prior intolerance): BB: Toprol XL 37.5mg daily (Did not tolerate 50mg daily, has been tried twice and will not try again) ACEI/ARB/ARNI: none MRA: none SGLT2: Jardiance 10mg daily Diuretic: Lasix 40mg daily Digoxin: none Vasodilators: none Anti-arrhythmics: none Ivabradine: none Other anti-HTN: none PLAN AND RECOMMENDATIONS: -Continue taking Jardiance, as it has shown improvement in your symptoms. - Your medications (Atorvastatin, Jardiance, Lasix, and Toprol) have been refilled for a year and sent to [facility]. - Monitor for any worsening symptoms, such as difficulty walking short distances, increased fatigue, or new arrhythmias. If you experience any of these, please contact me immediately. - Your next follow-up appointment will be in one year, with the same testing as this year. I personally interviewed, confirmed and edited the above information as obtained by others I personally spent 35 minutes in total time involved in the management and care of this patient. We discussed natural history of disease, current treatment options, and future potential treatment options. We discussed diet, exercise, other non-medical management as above. Dave Alcala MD [facility] Section Of Heart Failure and Cardiac Transplant Medicine Heart and Vascular [facility] Desk [id number] [place] [address] documented in this encounter [facility] 05-12-2024 Note [facility] 04-09-2024 History of Present illness Narrative Chief Complaint Patient presents with: Follow Up: Possible tick HPI Chris Ricardo is a 64 year old female who presents here today for possible tick on abdomen. When did you notice? Noticed on Friday that there was a small dark black spot on the left mid abdomin. . Not sure if it was a tick. Never increased in size. Any pain or itching? Pinching feeling/itchy Redness? Yes, started in the past day or two. Swelling? No Fever? No No drainage from the area. Patient has had ticks before. Tried soap and water. But no changes. Patient and her were hiking [place] on Friday. Past medical history, appointments, medications, allergies reviewed. Previous Medical History PAST MEDICAL HISTORY No date: Abnormal mole 10/17/2020: AK (actinic keratosis) 06/08/2019: Ankle instability, left 08/07/2023: Arrhythmogenic right ventricular cardiomyopathy (HCC) 04/05/2020: Bee sting allergy 04/16/2010: Benign neoplasm of colon Comment: Tubular adenoma 04/16/1203/2020: Cataracts, bilateral 06/13/2022: Chronic constipation 08/07/2023: Chronic heart failure with preserved ejection fraction (HFpEF) ([facility]) 05/28/2018: Chronic left shoulder pain 11/27/2020: Compound nevus Comment: Abd LLQ removed 11/202010/09/2022: Congestive heart failure ([facility]) Comment: Seeing Dr. Alcala: stage 2 No date: Constipation 07/09/2017: Depression with anxiety Comment: Situational, Managed by Counseling. No date: Diffuse cystic mastopathy 05/01/2023: Elevated blood sugar No date: Essential hypertension 07/04/2016: Family history of breast cancer 05/07/2007: Family history of malignant neoplasm of breast Comment: 2 maternal aunts 03/25/2022: History of COVID-19 Comment: 01/2022 No date: Insomnia, unspecified Comment: rare 03/11/2011: Left shoulder pain 2010: Low testosterone level in female 2006: Mixed hyperlipidemia Comment: was on simvastatin, was able to come off med. 01/31/2022: Nonrheumatic tricuspid valve regurgitation No date: Osteopenia Comment: ++FHx osteoporosis 08/27/2017: Peroneal tendinitis of left lower extremity 04/21/2013: Personal history of colonic polyps Comment: tubular adenoma. 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 Tucker and Dr. Alcala: Cardiomyopathy. Had cardiac arrest, has a pace maker/defibulator. Is limited to what exercising she can do. 08/27/2017: Plantar fasciitis of left foot 07/18/2016: Plantar fasciitis of right foot 01/14/2017: Presence of combination internal cardiac defibrillator (ICD) and pacemaker No date: Ptosis, left eyelid Comment: benign 08/13/2018: PTSD (post-traumatic stress disorder) 10/23/2023: Tinnitus, bilateral 2000: Unspecified closed fracture of ankle Comment: Ankle fracture left [place], [place] No date: Urge incontinence Previous Surgical History PAST SURGICAL HISTORY 1970: APPENDECTOMY Comment: [place], [place] 2017: BLEPHAROPLASTY, UPPER EYELID; Left 2006: BREAST BIOPSY Comment: left breast ([facility]) 01/05/2017: CARDIAC CATH Comment: normal 04/27/2013: COLONOSCOPY Comment: normal, repeat in 5 yrs d/t pers hx polyps and poss fam hx gi malignancy 05/04/2018: COLONOSCOPY Comment: repeat 10 yrs, Dr. Hatfield 04/16/2010: COLSC FLX W/RMVL OF TUMOR POLYP LESION SNARE TQ Comment: tubular adenoma at 70cm 09/2008: DILATION & CURETTAGE DX&/THER NONOBSTETRIC Comment: Dilation & curettage, Uterine Ablation with Novasure 01/06/2017: LEAD,PACEMAKER/DEFIB COMBO 09/2008: NOVASURE 01/2002: PRK; Bilateral Comment: in [place] 01/03/2017: RADIOFREQUENCY ABLATION 1970: TONSILLECTOMY PRIMARY/SECONDARY <AGE 12 Comment: Tonsillectomy [place] Family History FAMILY HISTORY Problem Relation Age of Onset Hypertension Mother dx age 30's Headache Mother Osteoporosis Mother Cataract Mother Lipids Mother Dementia Mother Alzheimer's Disease Father first symptoms around 70 Diabetes Father late 70's Hypertension Father Lipids Father Arthritis Father Cataract Father other (Abdominal Aortic Aneurysm) Maternal Grandmother Diabetes Paternal Grandmother Cancer Paternal Grandfather unknown Skin Cancer Daughter Breast Cancer Maternal Aunt x2 other (Abdominal Aortic Aneurysm) Maternal Aunt x2 Osteoporosis Maternal Aunt Osteoporosis Maternal Aunt Osteoporosis Maternal Aunt Osteoporosis Maternal Aunt other (Abdominal Aortic Aneurysm) Maternal Uncle Osteoporosis Maternal Uncle Osteoporosis Maternal Uncle Osteoporosis Maternal Uncle Osteoporosis Maternal Uncle Colon Cancer Other none other (cousin of blood clot; had dm, af and etoh) Other Patient Allergies ALLERGIES Allergen Reactions Bee Sting Swelling Omeprazole Other: See Comments vivid dreams Current Medications Current Outpatient Medications on File Prior to Visit Medication Sig lansoprazole (PREVACID) 30 mg capsule Take 1 capsule by mouth daily before breakfast. 1/2 hr before meal. atorvastatin (LIPITOR) 10 mg tablet Take 1 tablet by mouth daily at bedtime. For cholesterol. EPINEPHrine (AUVI-Q) 0.3 mg/0.3 mL auto-injector Inject 0.3 mL intramuscularly as needed. empagliflozin (JARDIANCE) 10 mg tablet Take 1 tablet by mouth daily with breakfast. furosemide (LASIX) 40 mg tablet Take 1 tablet by mouth once daily. metoprolol succinate ER (TOPROL XL) 25 mg 24 hr tablet Take 1.5 tablets by mouth once daily. L. acidophilus/Bifid. animalis (PROBIOTIC) 5 billion cell cpSP Take 1 capsule by mouth once daily. glucosamine/chondr barrera A sod (OSTEO BI-FLEX ORAL) Take by mouth once daily. CALCIUM-VITAMIN D3 ORAL Take by mouth. 1200 calcium- 1000 units D3 (2) tablets twice daily acetaminophen (TYLENOL) 500 mg tablet Take 500 mg by mouth every 6 hours as needed. multivitamin ORAL tablet Take 1 tablet by mouth once daily. aspirin 81 mg ORAL Chew Take one(1) tablet daily. No current facility-administered medications on file prior to visit. Social History Social History Tobacco Use Smoking status: Former Current packs/day: 0.00 Average packs/day: 0.5 packs/day for 10.0 years (5.0 ttl pk-yrs) Types: Cigarettes Start date: 08/04/1978 Quit date: 08/04/1988 Years since quittin.7 Passive exposure: Never Smokeless tobacco: Never Tobacco comments: quit 32 years ago Vaping Use Vaping status: Never Used Substance Use Topics Alcohol use: No Drug use: No Review of Symptoms REVIEW OF SYSTEMS See HPI EXAM: BP 98/60 (BP Site: Right Arm, BP Position: Sitting, BP Cuff Size: Regular Adult) Pulse 72 Temp 36.4 C (97.5 F) Resp 16 Wt 71.2 kg (157 lb) LMP 09/29/2008 BMI 26.13 kg/m General Appearance: Well appearing, alert, in no acute distress, well-hydrated, well nourished.. Skin: has a dark lesion on the left mid abdomen that looks like an irritated scab. This it not a tick. Mild surrounding erythema. . Health Maintenance List Influenza Vaccine(1) due on 04/04/2024 Cervical Cancer Screening due on 09/10/2024 RSV Vaccine(1 - 1-dose 60+ series) due on 10/30/2024 Mammogram Screening due on 10/08/2024 Annual PCP Team Chronic Disease Visit due on 12/07/2024 BP Controlled (<130/80) due on 12/10/2024 Pneumococcal Vaccine(3 of 3 - PPSV23 or PCV20) due on 04/19/2026 Diabetes Screening due on 11/26/2026 Colorectal Cancer Screening due on 05/04/2028 Lipid Screening due on 10/21/2028 DTaP,Tdap,Td Vaccine(4 - Td or Tdap) due on 07/08/2033 Hepatitis C Screening Completed Shingrix Vaccine Completed Covid-19 Vaccine Completed HIV Screening Discontinued Data reviewed A/P ASSESSMENT/PLAN: 1. 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 2. Cellulitis of abdominal wall - ICD9: 682.2, ICD10: L03.311 - very mild. Will have patient cont to wash with soapy water twice a day. Script sent for Duricef 500 g twice day to start if the redness starts to spread out. F/u 04/05/2024 for recheck and possible punch biopsy. Alton Eisenberg MD documented in this encounter [facility] 04-09-2024 Note [facility] 2024 Note Addended by: KELSIE PATEL on: 2024 11:11 AM Modules accepted: Orders [facility] 2024 Miscellaneous Notes Addended by: KELSIE CUELLAR on: 2024 11:11 AM Modules accepted: Orders Addended by: KYLAH RAZO on: 2024 09:19 AM Modules accepted: Orders documented in this encounter [facility] 2024 Note Addended by: KYLAH RAZO on: 2024 09:19 AM Modules accepted: Orders [facility] 12-20-2023 Note HNO ID: [id number] Author: ILYA RAYGOZA MD Service: ? Author Type: Physician Type: Progress Notes Filed: 12/20/2023 13:00 Note Text: [place]: Chris Ricardo is a 63 year old, White, female who presents, I am here about my nose. She fell 12/01/2023 and broke her nose. She saw her PCP and then had a nasal x-ray 12/08/2023. She feels her nose looks okay. She complains of nasal obstruction that she had prior to this and it continues. She does not have general bleeding or bruising problems and takes aspirin 81 mg daily. SUBJECTIVE: I reviewed the allergies, medications, problem list, PMH/PSH, FmHx and SocHx as documented in Epic chart. PHYSICAL EXAM: VS: BP 100/60 Pulse 68 Resp 16 Ht 165.1 cm (5' 5) Wt 71.7 kg (158 lb) LMP 09/29/2008 BMI 26.29 kg/m? CONST/MS: The patient appears to be in NAD and has a normal voice quality. H/F/N: The facial motion is overall normal. There are no palpable salivary gland, thyroid or neck masses. Ears: The external ears and canals are without lesions. Each TM is intact and mobile on pneumatic otoscopy. Nose: The external nose is without lesions, it is tender to palpation but straight. The nasal mucosa appears healthy on nasal speculum exam. The septum has bilateral deviation. The IT have bilateral hypertrophy. There is bilateral nasal obstruction. OC/OP: The lips and gums are without lesions. The tongue/oral mucosa is healthy. The hard/soft palate, tonsil fossa and posterior pharynx are without lesions. The teeth have some crowns. 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 HP/LX: The mirror exam is without obvious lesion of the hypopharynx but the epiglottis blocks view of the larynx. OBJECTIVE: I reviewed the PCP note. I reviewed the nasal x-ray 12/08/2023 which shows a nondisplaced nasal fracture. ASSESSMENT AND PLAN: I counseled the patient about the differential diagnosis, natural course, treatment options and answered their questions for all diagnoses and orders: 1. Closed fracture of nasal bone, initial encounter - ICD9: 802.0, ICD10: S02.2XXA 2. Nasal obstruction - ICD9: 478.19, ICD10: J34.89 3. Deviated nasal septum - ICD9: 470, ICD10: J34.2 4. Hypertrophy of nasal turbinates - ICD9: 478.0, ICD10: J34.3 She was counseled to massage the external nose and watch if there is any shifting as it heals. She was counseled to consider septoplasty and bilateral IT SMR. Return if symptoms worsen or fail to improve. Ilya Raygoza MD 50 minutes Total time including preparation, obtaining/reviewing history, exam, interpreting results, ordering, counseling/education, referring/communicating and documentation. Created using voice recognition software, some errors may have occurred. Corrections may be performed at a later date. PROCEDURE NOTE Procedure: Nasal endoscopy Pre-/post diagnosis: Nasal obstruction Description: Topical local anesthetic was applied through the nares bilaterally. The 30 degree rigid nasal endoscope was used bilaterally. There was nasal obstruction bilaterally. There was bilateral septal deviation. There was a good response of the inferior turbinates to topical vasoconstriction. There was no pus, polyp or mass seen. There was no evidence of septal hematoma. The findings were reviewed with the patient. Ilya Raygoza MD Created using voice recognition software, some errors may have occurred. Corrections may be performed at a later date. [facility] 12-20-2023 Note HNO ID: [id number] Author: ILYA RAYGOZA MD Service: ? Author Type: Physician Type: Procedures Filed: 12/20/2023 13:00 Note Text: Procedure: Nasal endoscopy Pre-/post diagnosis: Nasal obstruction Description: Topical local anesthetic was applied through the nares bilaterally. The 30 degree rigid nasal endoscope was used bilaterally. There was nasal obstruction bilaterally. There was bilateral septal deviation. There was a good response of the inferior turbinates to topical vasoconstriction. There was no pus, polyp or mass seen. There was no evidence of septal hematoma. The findings were reviewed with the patient. Ilya Raygoza MD Created using voice recognition software, some errors may have occurred. Corrections may be performed at a later date. [facility] 12-20-2023 History of Present illness Narrative [place]: Chris Ricardo is a 63 year old, White, female who presents, I am here about my nose. She fell 12/01/2023 and broke her nose. She saw her PCP and then had a nasal x-ray 12/08/2023. She feels her nose looks okay. She complains of nasal obstruction that she had prior to this and it continues. She does not have general bleeding or bruising problems and takes aspirin 81 mg daily. SUBJECTIVE: I reviewed the allergies, medications, problem list, PMH/PSH, FmHx and SocHx as documented in Epic chart. PHYSICAL EXAM: VS: BP 100/60 Pulse 68 Resp 16 Ht 165.1 cm (5' 5) Wt 71.7 kg (158 lb) LMP 09/29/2008 BMI 26.29 kg/m CONST/MS: The patient appears to be in NAD and has a normal voice quality. H/F/N: The facial motion is overall normal. There are no palpable salivary gland, thyroid or neck masses. Ears: The external ears and canals are without lesions. Each TM is intact and mobile on pneumatic otoscopy. Nose: The external nose is without lesions, it is tender to palpation but straight. The nasal mucosa appears healthy on nasal speculum exam. The septum has bilateral deviation. The IT have bilateral hypertrophy. There is bilateral nasal obstruction. OC/OP: The lips and gums are without lesions. The tongue/oral mucosa is healthy. The hard/soft palate, tonsil fossa and posterior pharynx are without lesions. The teeth have some crowns. 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 HP/LX: The mirror exam is without obvious lesion of the hypopharynx but the epiglottis blocks view of the larynx. OBJECTIVE: I reviewed the PCP note. I reviewed the nasal x-ray 12/08/2023 which shows a nondisplaced nasal fracture. ASSESSMENT & PLAN: I counseled the patient about the differential diagnosis, natural course, treatment options and answered their questions for all diagnoses and orders: 1. Closed fracture of nasal bone, initial encounter - ICD9: 802.0, ICD10: S02.2XXA 2. Nasal obstruction - ICD9: 478.19, ICD10: J34.89 3. Deviated nasal septum - ICD9: 470, ICD10: J34.2 4. Hypertrophy of nasal turbinates - ICD9: 478.0, ICD10: J34.3 She was counseled to massage the external nose and watch if there is any shifting as it heals. She was counseled to consider septoplasty and bilateral IT SMR. Return if symptoms worsen or fail to improve. Ilya Raygoza MD 50 minutes Total time including preparation, obtaining/reviewing history, exam, interpreting results, ordering, counseling/education, referring/communicating and documentation. Created using voice recognition software, some errors may have occurred. Corrections may be performed at a later date. PROCEDURE NOTE Procedure: Nasal endoscopy Pre-/post diagnosis: Nasal obstruction Description: Topical local anesthetic was applied through the nares bilaterally. The 30 degree rigid nasal endoscope was used bilaterally. There was nasal obstruction bilaterally. There was bilateral septal deviation. There was a good response of the inferior turbinates to topical vasoconstriction. There was no pus, polyp or mass seen. There was no evidence of septal hematoma. The findings were reviewed with the patient. Ilya Raygoza MD Created using voice recognition software, some errors may have occurred. Corrections may be performed at a later date. documented in this encounter [facility] 12-20-2023 Procedure note Procedure: Nasal endoscopy Pre-/post diagnosis: Nasal obstruction Description: Topical local anesthetic was applied through the nares bilaterally. The 30 degree rigid nasal endoscope was used bilaterally. There was nasal obstruction bilaterally. There was bilateral septal deviation. There was a good response of the inferior turbinates to topical vasoconstriction. There was no pus, polyp or mass seen. There was no evidence of septal hematoma. The findings were reviewed with the patient. Ilya Raygoza MD Created using voice recognition software, some errors may have occurred. Corrections may be performed at a later date. [facility] 12-20-2023 Procedure note Procedure: Nasal endoscopy Pre-/post diagnosis: Nasal obstruction Description: Topical local anesthetic was applied through the nares bilaterally. The 30 degree rigid nasal endoscope was used bilaterally. There was nasal obstruction bilaterally. There was bilateral septal deviation. There was a good response of the inferior turbinates to topical vasoconstriction. There was no pus, polyp or mass seen. There was no evidence of septal hematoma. The findings were reviewed with the patient. Ilya Raygoza MD Created using voice recognition software, some errors may have occurred. Corrections may be performed at a later date. documented in this encounter [facility] 12-11-2023 Instructions Ilya Raygoza MD - 12/11/2023 12:51 PM EDT Massage the external nose regularly. Consider septoplasty and inferior turbinate reduction. documented in this encounter [facility] 12-09-2023 Telephone encounter Note Faxed to ziyad Herrera MA [facility] 12-09-2023 Miscellaneous Notes Faxed to ziyad Herrera MA documented in this encounter [facility] 12-08-2023 Telephone encounter Note Called and left a detailed voicemail notifying patient of providers message. Clinic phone number was left in case patient had any questions and to let us know where she would like ENT order sent to. Janae Alfaro RN [facility] 12-08-2023 Miscellaneous Notes Called and left a detailed voicemail notifying patient of providers message. Clinic phone number was left in case patient had any questions and to let us know where she would like ENT order sent to. Janae Alfaro RN Please let patient know her xray shows a nondisplaced fracture. I can refer her to ENT for follow up. documented in this encounter [facility] 12-08-2023 Telephone encounter Note Please let patient know her xray shows a nondisplaced fracture. I can refer her to ENT for follow up. [facility] 12-08-2023 History of Present illness Narrative Radiology Service Progress Note PATIENT NAME: Chris Ricardo DATE OF SERVICE: December 08, 2023 TIME: 11:53 AM PATIENT IDENTITY VERIFICATION COMPLETED USING TWO (2) IDENTIFIERS: Name and Date of confirmed by patient verbally. FALL SCREENING: Has the patient had 2 falls in the last year or 1 fall with injury or currently using an Ambulatory Assistive Device (Walker, Cane, Wheelchair, Crutches, etc.)? No PATIENT GENDER DATA: Female. status: : No status: NO. PATIENT RELEVANT IMPLANT DATA REVIEWED: Yes PATIENT PRESENTS WITH AN IMPLANTABLE OR ATTACHED AIR INTERCEPT CONTROLLER: No RADIOLOGY DEPARTMENT: General X-ray: Exam(s) Completed: Skull X-Ray nasal bones PERIPHERAL IV DATA: Not applicable SIGNED BY: RT Tay(R) December 08, 2023 11:53 AM documented in this encounter [facility] 12-08-2023 History of Present illness Narrative Chief Complaint Patient presents with: Fall: Nose pain and swelling X 1 week post fall HPI Chris Ricardo is a 63 year old female who presents here today for Above Complaints.. Patient presents for nose pain x1 week. Patient fell while walking last Friday. Patient reports her other scrapes and injuries have healed however her nose is still very swollen and painful. Patient concerned she may have fractured her nose. Past medical history, appointments, medications, allergies reviewed. Previous Medical History PAST MEDICAL HISTORY Diagnosis Date Abnormal mole AK (actinic keratosis) 10/17/2020 Ankle instability, left 06/08/2019 Arrhythmogenic right ventricular cardiomyopathy (HCC) 08/07/2023 Bee sting allergy 04/05/2020 Benign neoplasm of colon 04/16/2010 Tubular adenoma 04/16/12 Cataracts, bilateral Chronic constipation 06/13/2022 Chronic heart failure with preserved ejection fraction (HFpEF) (HCC) 08/07/2023 Chronic left shoulder pain 05/28/2018 Compound nevus 11/27/2020 Abd LLQ removed 11/2020 Congestive heart failure (HCC) 10/09/[address] Alcala: stage 2 Constipation Depression with anxiety 07/09/2017 Situational, Managed by Counseling. Diffuse cystic mastopathy Elevated blood sugar 05/01/2023 Essential hypertension Family history of breast cancer 07/04/2016 Family history of malignant neoplasm of breast 05/07/2007 2 maternal aunts History of COVID-19 03/25/202201/2022 Insomnia, unspecified rare Left shoulder pain 03/11/2011 Low testosterone level in female 2010 Mixed hyperlipidemia 2006 was on simvastatin, was able to come off med. Nonrheumatic tricuspid valve regurgitation 01/31/2022 Osteopenia ++FHx osteoporosis Peroneal tendinitis of left lower extremity 08/27/2017 Personal history of colonic polyps 04/21/2013 tubular adenoma. 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 Tucker and Dr. Alcala: Cardiomyopathy. Had cardiac arrest, has a pace maker/defibulator. Is limited to what exercising she can do. Plantar fasciitis of left foot 08/27/2017 Plantar fasciitis of right foot 07/18/2016 Presence of combination internal cardiac defibrillator (ICD) and pacemaker 01/14/2017 Ptosis, left eyelid benign PTSD (post-traumatic stress disorder) 08/13/2018 Sensorineural hearing loss, bilateral 10/23/2023 Tinnitus, bilateral 10/23/2023 Unspecified closed fracture of ankle 2000 Ankle fracture left [place], [place] Urge incontinence Previous Surgical History PAST SURGICAL HISTORY Procedure Laterality Date APPENDECTOMY 1971 [place], [place] BLEPHAROPLASTY, UPPER EYELID Left 2017 BREAST BIOPSY 2006 left breast ([facility]) CARDIAC CATH 01/05/2017 normal COLONOSCOPY 04/27/2013 normal, repeat in 5 yrs d/t pers hx polyps and poss fam hx gi malignancy COLONOSCOPY 05/04/2018 repeat 10 yrs, Dr. Hatfield COLSC FLX W/RMVL OF TUMOR POLYP LESION SNARE TQ 04/16/2010 tubular adenoma at 70cm DILATION & CURETTAGE DX&/THER NONOBSTETRIC 09/2008 Dilation & curettage, Uterine Ablation with Novasure LEAD,PACEMAKER/DEFIB COMBO 01/06/2017 NOVASURE 09/2008 PRK Bilateral 01/2002 in [place] RADIOFREQUENCY ABLATION 01/03/2017 TONSILLECTOMY PRIMARY/SECONDARY <AGE 12 1970 [place]illectomy [place], [place] Family History FAMILY HISTORY Problem Relation Age of Onset Hypertension Mother dx age 30's Headache Mother Osteoporosis Mother Cataract Mother Lipids Mother Dementia Mother Alzheimer's Disease Father first symptoms around 70 Diabetes Father late 70's Hypertension Father Lipids Father Arthritis Father Cataract Father other (Abdominal Aortic Aneurysm) Maternal Grandmother Diabetes Paternal Grandmother Cancer Paternal Grandfather unknown Skin Cancer Daughter Breast Cancer Maternal Aunt x2 other (Abdominal Aortic Aneurysm) Maternal Aunt x2 Osteoporosis Maternal Aunt Osteoporosis Maternal Aunt Osteoporosis Maternal Aunt Osteoporosis Maternal Aunt other (Abdominal Aortic Aneurysm) Maternal Uncle Osteoporosis Maternal Uncle Osteoporosis Maternal Uncle Osteoporosis Maternal Uncle Osteoporosis Maternal Uncle Colon Cancer Other none other (cousin of blood clot; had dm, af and etoh) Other Patient Allergies ALLERGIES Allergen Reactions Bee Sting Swelling Omeprazole Other: See Comments vivid dreams Current Medications Current Outpatient Medications on File Prior to Visit Medication Sig pantoprazole DR (PROTONIX) 40 mg tablet Take 1 tablet by mouth daily before breakfast. Take on empty stomach, 1/2 hr before meal. atorvastatin (LIPITOR) 10 mg tablet Take 1 tablet by mouth daily at bedtime. For cholesterol. EPINEPHrine (AUVI-Q) 0.3 mg/0.3 mL auto-injector Inject 0.3 mL intramuscularly as needed. empagliflozin (JARDIANCE) 10 mg tablet Take 1 tablet by mouth daily with breakfast. furosemide (LASIX) 40 mg tablet Take 1 tablet by mouth once daily. metoprolol succinate ER (TOPROL XL) 25 mg 24 hr tablet Take 1.5 tablets by mouth once daily. L. acidophilus/Bifid. animalis (PROBIOTIC) 5 billion cell cpSP Take 1 capsule by mouth once daily. glucosamine/chondr barrera A sod (OSTEO BI-FLEX ORAL) Take by mouth once daily. CALCIUM-VITAMIN D3 ORAL Take by mouth. 1200 calcium- 1000 units D3 (2) tablets twice daily acetaminophen (TYLENOL) 500 mg tablet Take 500 mg by mouth every 6 hours as needed. multivitamin ORAL tablet Take 1 tablet by mouth once daily. aspirin 81 mg ORAL Chew Take one(1) tablet daily. Current Facility-Administered Medications on File Prior to Visit Medication perflutren lipid microspheres 1.3 mL in NaCl (PF) 0.9% 10 mL injection (DEFINITY) sodium chloride 0.9 % (flush) 10 mL (BD POSIFLUSH) Social History Social History Tobacco Use Smoking status: Former Packs/day: 0.50 Years: 10.00 Additional pack years: 0.00 Total pack years: 5.00 Types: Cigarettes Quit date: 08/04/1988 Years since quittin.3 Passive exposure: Never Smokeless tobacco: Never Tobacco comments: quit 32 years ago Vaping Use Vaping Use: Never used Substance Use Topics Alcohol use: No Drug use: No Review of Symptoms REVIEW OF SYSTEMS SEE HPI EXAM: BP 92/60 Pulse 66 Resp 14 Wt 70.3 kg (155 lb) LMP 09/29/2008 BMI 25.79 kg/m General Appearance: Well appearing, alert, in no acute distress, well-hydrated, well nourished.. Skin: Positives: Ecchymosis: face. Nose/Sinuses: Positive findings: Roshan lump to nose at the bridge. Tender with palpation. Mild redness noted. Health Maintenance List RSV Vaccine(1 - 1-dose 60+ series) due on 10/30/2024 Pap Testing due on 09/10/2024 HPV Testing due on 09/10/2024 Mammogram Screening due on 10/08/2024 Annual PCP Team Chronic Disease Visit due on 10/30/2024 BP Controlled (<130/80) due on 11/26/2024 Pneumococcal Vaccine(3 of 3 - PPSV23 or PCV20) due on 04/19/2026 Diabetes Screening due on 11/26/2026 Colorectal Cancer Screening due on 05/04/2028 Lipid Screening due on 10/21/2028 DTaP,Tdap,Td Vaccine(4 - Td or Tdap) due on 07/08/2033 Influenza Vaccine Completed Hepatitis C Screening Completed Shingrix Vaccine Completed Covid-19 Vaccine Completed HIV Screening Discontinued ASSESSMENT/PLAN: 1. Injury of nose, initial encounter - ICD9: 959.09, ICD10: S09.92XA - XR NASAL BONES 3V PA/BOTH LAT Chanel Gardner APRN.[employer]ARD[employer] documented in this encounter [facility] 11-27-2023 History of Present illness Narrative EVENT MONITOR DISPOSABLE PATCH INSTRUCTIONS Patient Name: Chris Ricardo [facility] Number: [id number] Skin prepped and cleansed with alcohol Patch secured to prepped area Monitor Activated Serial #: [id number] Patient Instructed: Prescribed order timeframe Bathing guidelines Usage of event button and diary documentation Return of monitor at the end of prescribed order Call with problems [phone] or [phone]. [phone] Patient expresses a good understanding of instructions Yuliet Jenkins MA documented in this encounter [facility] 11-27-2023 History of Present illness Narrative I reviewed the primary data from chart (MRI 2017, genetic testing 2017, EKGs throughout, history). Patient fulfilled 2010 Revised Task Force Criteria for ARVC: I. Global or regional dysfunction and structural alterations - multifocal dyskinesis; Ratio of RV end-diastolic volume to BSA 134 milliliters/meter2 (female); RV ejection fraction appears to be significantly less than 40% - major II. Tissue - none III. Repolarization - none IV. Depolarization/conduction - none V. Arrhythmia - SVT - minor . Family Hx - PKP2+ - major W Katiuska Snowden MD November 27, 2023 12:46 PM IRB #[id number] [facility] PKP2 study PI: Dr. Snowden Study Visit: Baseline I met with the patient for the Baseline Visit for the [facility] PKP2 Study. Patient wishes to participate in the study and consent form signed prior to any research procedures being completed. Medical history reviewed. Medications and allergy lists updated and current. Labs collected per protocol. Patient able to download mobile arlene for questionnaires and provided activation code: Yes ZioPatch ordered placed. Patient opted for placement at: facility (-2) Discussed with the patient the importance of follow up in the study. She verbalized understanding. Next study visit will be in clinic. Patient contact information reaffirmed and updated. Coordinator contact information provided to the patient. Education provided: Follow up requirements/schedule Materials dispensed: None Custom Frame Assembler: Carly Magdaleno Pager #: [phone] documented in this encounter [facility] 11-27-2023 Instructions Dave Alcala MD - 11/27/2023 8:44 AM EDT Follow-up in 8 months with office visit and echocardiogram Continue João CHU Discuss our research coordinator today Refilled Atorvastatin. documented in this encounter [facility] 11-27-2023 History of Present illness Narrative Images from the original note were not included. Heart and Vascular [facility] SECTION OF HEART FAILURE and CARDIAC TRANSPLANT MEDICINE OUTPATIENT VISIT DATE November 27, 2023 OUTPATIENT VISIT TYPE Established Patient PRIMARY CARE PHYSICIAN: Alton Eisenberg [address] [place] [address] CHIEF COMPLAINT: Established follow-up NURSING INTAKE (Patient s concerns and/or recent hospitalizations/ER visits): HF Nursing Assessment: Interim Hospitalizations and/or ER visits:no Chest Pain: no Skipping or irregular heartbeats: palpitations Shortness of breath at rest: no Shortness of breath with activity: sometimes with exertion Cough: a little Waking up in the middle of the night gasping for air: no Lightheadedness or dizziness: if moving to fast Feeling like you are going to pass out: no Actually passing out: no Poor energy level: fair Unintentional weight gain: no Unintentional weight loss: no Swelling in your legs,feet, abdomen:a little in legs/abdomen Filling up quickly when you eat: no HISTORY OF PRESENT ILLNESS: Ms. Ricardo is 63 year old female with history of ARVC (PKP2 mutation), right ventricular dilation, moderate tricuspid regurgitation, VT s/p ICD and PTSD who presents as an established visit in heart failure clinic. Patient was last seen by myself on 01/03/23. Tried to increase Toprol XL from 37.5 daily to 50mg daily but she did not tolerate it. Saw Dr. Bubba Reilly on 08/06/23 and started on Jardiance 10 mg daily. Seeing research today. She notes feeling better with Jardiance. She remains active and walking 3 miles a day. Denies any ICD discharges. Notes normal exertional capacity. Denies any orthopnea, PND, lightheadedness/dizziness, or syncope. In terms of past medical history: Patient notes that he cardiac history started in 1993. She had a work-up in the at that time due to recurrent lightheadedness/dizziness. She was found to have sinus bradycardia at that time. Stress test, echocardiogram, nuclear testing was normal. In 2000 as part of the she had traveled to [place] and had an episode of stress and went to see the doctor at that time and was found to have PACs. In 2016, her daughter was about to graduate from college and she was training for a hiking trip in [place]. The night before she left she woke up with chest pressure and nausea/vomiting. She called 911 and went [place]. She was found to be in sustained VT with LBBB. She underwent comprehensive testing including a heart cath and cardiac MRI. There was no significant CAD but an area of akinesis on her MRI concerning for ARVC. She underwent and EP procedure 01/03/2017 and the were able to modify an area of scar of the inferior, free wall and inferoseptum of the RV. Though the VT was not eliminated, it was modified. Reportedly, the VT was not pace terminable prior to but was after the procedure. She had a dual chamber ICD implant 01/06/2017 MDT MRI and has done well from an arrhythmia perspective on beta el. She was originally on Toprol XL 50mg but had lethargy. But she was able to tolerate Toprol XL 25mg daily. Genetic testing + PKP2. She notes feeling well and but generally is able to stay active but does have to take an occasional nap. She follows with Dr. Tucker for her VT. She has never had an ICD shocks. She has had swelling in her thighs and lower abdomen. She notes this is correlated to when she goes out to eat and has a lot of salt. Denies any orthopnea, PND, lightheadedness/dizziness, or syncope. PAST MEDICAL HISTORY Diagnosis Date Abnormal mole AK (actinic keratosis) 10/17/2020 Ankle instability, left 06/08/2019 Arrhythmogenic right ventricular cardiomyopathy (HCC) 08/07/2023 Bee sting allergy 04/05/2020 Benign neoplasm of colon 04/16/2010 Tubular adenoma 04/16/12 Cataracts, bilateral Chronic constipation 06/13/2022 Chronic heart failure with preserved ejection fraction (HFpEF) (HCC) 08/07/2023 Chronic left shoulder pain 05/28/2018 Compound nevus 11/27/2020 Abd LLQ removed 11/2020 Congestive heart failure (HCC) 10/09/[address] Alcala: stage 2 Constipation Depression with anxiety 07/09/2017 Situational, Managed by Counseling. Diffuse cystic mastopathy Elevated blood sugar 05/01/2023 Essential hypertension Family history of breast cancer 07/04/2016 Family history of malignant neoplasm of breast 05/07/2007 2 maternal aunts History of COVID-19 03/25/202201/2022 Insomnia, unspecified rare Left shoulder pain 03/11/2011 Low testosterone level in female 2010 Mixed hyperlipidemia 2006 was on simvastatin, was able to come off med. Nonrheumatic tricuspid valve regurgitation 01/31/2022 Osteopenia ++FHx osteoporosis Peroneal tendinitis of left lower extremity 08/27/2017 Personal history of colonic polyps 04/21/2013 tubular adenoma. 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 Tucker and Dr. Cari: Cardiomyopathy. Had cardiac arrest, has a pace maker/defibulator. Is limited to what exercising she can do. Plantar fasciitis of left foot 08/27/2017 Plantar fasciitis of right foot 07/18/2016 Presence of combination internal cardiac defibrillator (ICD) and pacemaker 01/14/2017 Ptosis, left eyelid benign PTSD (post-traumatic stress disorder) 08/13/2018 Sensorineural hearing loss, bilateral 10/23/2023 Tinnitus, bilateral 10/23/2023 Unspecified closed fracture of ankle 2000 Ankle fracture left [place], [place] Urge incontinence PAST SURGICAL HISTORY Procedure Laterality Date APPENDECTOMY 1970 [place], [place] BLEPHAROPLASTY, UPPER EYELID Left 2016 BREAST BIOPSY 2006 left breast ([facility]) CARDIAC CATH 01/05/2017 normal COLONOSCOPY 04/27/2013 normal, repeat in 5 yrs d/t pers hx polyps and poss fam hx gi malignancy COLONOSCOPY 05/04/2018 repeat 10 yrs, Dr. Hatfield COLSC FLX W/RMVL OF TUMOR POLYP LESION SNARE TQ 04/16/2010 tubular adenoma at 70cm DILATION & CURETTAGE DX&/THER NONOBSTETRIC 09/2008 Dilation & curettage, Uterine Ablation with Novasure LEAD,PACEMAKER/DEFIB COMBO 01/06/2017 NOVASURE 09/2008 PRK Bilateral 01/2002 in [place] RADIOFREQUENCY ABLATION 01/03/2017 TONSILLECTOMY PRIMARY/SECONDARY <AGE 12 1970 Tonsillectomy [place], [place] SOCIAL HISTORY Social History Tobacco Use Smoking status: Former Packs/day: 0.50 Years: 10.00 Additional pack years: 0.00 Total pack years: 5.00 Types: Cigarettes Quit date: 08/04/1988 Years since quittin.3 Passive exposure: Never Smokeless tobacco: Never Tobacco comments: quit 32 years ago Vaping Use Vaping Use: Never used Substance Use Topics Alcohol use: No Drug use: No FAMILY HISTORY Problem Relation Age of Onset Hypertension Mother dx age 30's Headache Mother Osteoporosis Mother Cataract Mother Lipids Mother Dementia Mother Alzheimer's Disease Father first symptoms around 70 Diabetes Father late 70's Hypertension Father Lipids Father Arthritis Father Cataract Father other (Abdominal Aortic Aneurysm) Maternal Grandmother Diabetes Paternal Grandmother Cancer Paternal Grandfather unknown Skin Cancer Daughter Breast Cancer Maternal Aunt x2 other (Abdominal Aortic Aneurysm) Maternal Aunt x2 Osteoporosis Maternal Aunt Osteoporosis Maternal Aunt Osteoporosis Maternal Aunt Osteoporosis Maternal Aunt other (Abdominal Aortic Aneurysm) Maternal Uncle Osteoporosis Maternal Uncle Osteoporosis Maternal Uncle Osteoporosis Maternal Uncle Osteoporosis Maternal Uncle Colon Cancer Other none other (cousin of blood clot; had dm, af and etoh) Other ALLERGIES: ALLERGIES Allergen Reactions Bee Sting Swelling CURRENT MEDICATIONS: atorvastatin (LIPITOR) 10 mg tablet^Take 1 tablet by mouth daily at bedtime. For cholesterol.^Disp: 90 tablet^Rfl: 1 omeprazole (PRILOSEC) 40 mg capsule^Take 1 capsule by mouth once daily. 1/2 hr before meal.^Disp: 90 capsule^Rfl: 1 EPINEPHrine (AUVI-Q) 0.3 mg/0.3 mL auto-injector^Inject 0.3 mL intramuscularly as needed.^Disp: 2 Each^Rfl: 1 empagliflozin (JARDIANCE) 10 mg tablet^Take 1 tablet by mouth daily with breakfast.^Disp: 90 tablet^Rfl: 3 furosemide (LASIX) 40 mg tablet^Take 1 tablet by mouth once daily.^Disp: 90 tablet^Rfl: 3 metoprolol succinate ER (TOPROL XL) 25 mg 24 hr tablet^Take 1.5 tablets by mouth once daily.^Disp: 135 tablet^Rfl: 3 L. acidophilus/Bifid. animalis (PROBIOTIC) 5 billion cell cpSP^Take 1 capsule by mouth once daily.^Disp: ^Rfl: glucosamine/chondr barrera A sod (OSTEO BI-FLEX ORAL)^Take by mouth once daily.^Disp: ^Rfl: CALCIUM-VITAMIN D3 ORAL^Take by mouth. 1200 calcium- 1000 units D3 (2) tablets twice daily^Disp: ^Rfl: acetaminophen (TYLENOL) 500 mg tablet^Take 500 mg by mouth every 6 hours as needed.^Disp: ^Rfl: multivitamin ORAL tablet^Take 1 tablet by mouth once daily.^Disp: ^Rfl: 0 aspirin 81 mg ORAL Chew^Take one(1) tablet daily.^Disp: ^Rfl: 0 REVIEW OF SYSTEMS: CONSTITUTION: Positive for: Night sweats Negative for: Fever and Recent weight change HEENT: Positive for: Hearing loss RESPIRATORY: Positive for: Cough Negative for: Difficulty breathing GASTROINTESTINAL: Positive for: Abdominal distention Negative for: Melena, Nausea, Diarrhea and Early satiety MUSCULOSKELETAL: Negative for: Arthralgias and Myalgias NEUROLOGICAL: Negative for: Headaches and Dizziness SKIN: Negative for: Rash EYES: Negative for: Visual disturbance CARDIOVASCULAR: Positive for: Leg swelling Negative for: Chest pain, Arrhythmia and Pre-syncope GENITOURINARY: Negative for: Difficulty urinating PATIENT ENTERED DATA: 12/31/2022 08/05/2023 11/20/2023 KCCQ-12 Scores Physical Limitation Score 100 (Class I Heart Failure ) 91.67 (Class I Heart Failure ) 100 (Class I Heart Failure ) Symptom Frequency Score 93.75 (Class I Heart Failure ) 79.17 (Class II Heart Failure ) 93.75 (Class I Heart Failure ) Quality of Life Score 87.5 (Class I Heart Failure) 87.5 (Class I Heart Failure) 87.5 (Class I Heart Failure) Social Limitation Score 91.67 (Class I Heart Failure) 91.67 (Class I Heart Failure) 100 (Class I Heart Failure) Overall Summary Score 93.23 (Class I Heart Failure ) 87.5 (Class I Heart Failure ) 95.31 (Class I Heart Failure ) 12/31/2022 08/05/2023 11/20/2023 PHQ-9 Score 3 2 3 04/28/2023 08/05/2023 10/26/2023 PROMIS Global Health - (T-Scores - the mean of general population = 50. Five points is a clinically meaningful difference.) Physical T-Score 50.8 57.7 Mental T-Score 43.5 53.3 62.5 PHYSICAL EXAMINATION: BP 110/76 (BP Site: Left Arm, BP Position: Sitting, BP Cuff Size: Regular Adult) Pulse 62 Resp 15 Ht 165.1 cm (5' 5) Wt 69.9 kg (154 lb) LMP 09/29/2008 SpO2 100% BMI 25.63 kg/m General: Well appearing, in no acute distress. Skin: No clubbing, no cyanosis. Eyes: Extra ocular movements intact Oropharynx: Teeth in good repair. Neck: No jugular venous distention, no carotid bruits, carotids have a normal upstroke, no palpable thyromegaly. Lungs: Clear to auscultation bilaterally, no wheezing or rhonchi. Heart: Regular rhythm, PMI not displaced, S1, S2 normal, no S3, no S4, no heaves, no rub and no murmur. Abdomen: Soft, nontender, bowel sounds normal, no palpable organomegaly, no bruits. Extremities: Trace peripheral edema . Grade 2/4 distal pulses bilaterally. Neuro: Oriented to person, place and time, alert, cooperative, gait coordinated. CARDIOVASCULAR MEDICINE TESTING: I have personally reviewed the Laboratory Testing and Echocardiogram. Last ECHO Result Conclusion ECHO Collected: 08/06/2023 11:04 AM (Final result) Impression: CONCLUSIONS: - Exam indication: Arrhythmogenic Right Ventricular Cardiomyopathy - The left ventricle is normal in size. Left ventricular systolic function is normal. EF = 62 5% (2D biplane) Normal left ventricular diastolic function. - The right ventricle is moderately dilated. Right ventricular systolic function is mildly decreased. - The right atrial cavity is dilated. - There is moderate (2+) tricuspid valve regurgitation caused by annular dilatation. - Estimated right ventricular systolic pressure is 27 mmHg consistent with normal pulmonary artery pressures. Estimated right atrial pressure is 3 mmHg based on IVC assessment. - Exam was compared with the prior echocardiographic exam performed on 07/06/2022. Similar findings on comparison. * * * Final * * * Last EKG Result Conclusion ECG COMPLETE Collected: 11/27/2023 7:32 AM (Preliminary result) Impression: ATRIAL-PACED RHYTHM WITH PROLONGED AV CONDUCTION WITH OCCASIONAL VENTRICULAR-PACED COMPLEXES LOW VOLTAGE QRS, CONSIDER PULMONARY DISEASE, PERICARDIAL EFFUSION, OR NORMAL VARIANT NONSPECIFIC T WAVE ABNORMALITY ABNORMAL ECG Cardiac MRI 01/06/2017: FINDINGS: The right ventricle is abnormally dilated. On the 4-chamber view at end diastole, the right ventricle measures 5.3 cm in cavitary diameter, while the left ventricle measures 4.7 cm. There is also straightening of the interventricular septum. Right ventricle appears mildly hypertrabeculated, although the free wall is suspected to be somewhat thinned. The dedicated ARVD protocol was not performed, and T1-weighted images were therefore not obtained to evaluate for fatty infiltration. On the short-axis cine images, there are several foci of bulging of the right ventricular free wall during systole, and there is also abnormal hypokinesis of the right ventricle with slight irregularity of the wall shown on the 4-chamber cine images. On delayed postcontrast images, there is suspected to be multifocal abnormal enhancement of the right ventricular myocardium, although there is artifact, limiting this determination. Right ventricular end-diastolic volume normalized to patient surface area of 1.79 meters squared is 134 milliliters/meter squared. Based on endocardial contours, the right ventricular ejection fraction is probably underestimated but appears to be significantly less than 40%. The left ventricle demonstrates normal myocardial thickness without left ventricular segmental wall motion abnormalities. Based on endocardial contours, the left ventricular ejection fraction is 56% with an end-diastolic volume of 157 mL (normal 52-141), and systolic volume of 69 mL (normal 13-51), and stroke volume 88 mL (normal 33-97). No definite abnormal left ventricular myocardial enhancement. There is a minimal amount of pericardial fluid. Small pleural effusions are present, right greater than left. IMPRESSION: Abnormal right ventricular dilatation with multifocal dyskinesis and decreased systolic function, as well as suspected foci of abnormal right ventricular enhancing fibrosis. MRI findings are suggestive of arrhythmogenic right ventricular cardiomyopathy/dysplasia and fulfill one major criterion according to 2010 task force criteria. C 01/05/2017: LMCA within normal limits LMCA within normal limits No angiographic evidence of plaque in the LMCA, LAD, Circumflex or RCA systems. LAD within normal limits CIRC within normal limits RCA within normal limits TTE 01/04/2017: Left Ventricle: The left ventricular chamber size is normal. There is no left ventricular hypertrophy observed. Global left ventricular wall motion and contractility are within normal limits. There is normal left ventricular systolic function. The estimated ejection fraction is 55-60%. The ejection fraction is calculated to be 57% using the Method of Disks. No regional wall motion abnormalities are evident. Left Atrium: The left atrial chamber size is normal. A patent foramen ovale is not demonstrated by color Doppler. Right Ventricle: The right ventricular chamber size and systolic function are within normal limits. The right ventricular cavity size is normal. The right ventricular global systolic function is normal. Right Atrium: The right atrial cavity size is normal. Aortic Valve: The aortic valve is trileaflet. Mild aortic leaflet calcification is visualized. The aortic valve leaflets appear mildly sclerotic. There is no hemodynamically significant stenosis. There is a trace of aortic regurgitation. Mitral Valve: The mitral valve leaflets appear normal. There is mild mitral annular calcification. There is no evidence of mitral valve prolapse. There is no evidence of mitral stenosis. There is trivial physiological regurgitation of the mitral valve. Tricuspid Valve: The tricuspid valve leaflets are normal. There is mild tricuspid regurgitation. No pulmonary hypertension is noted. Pulmonic Valve: The pulmonic valve appears grossly normal in structure and function. Pericardium: There is no pericardial effusion. Aorta: The aortic root is normal in diameter. Venous: There is less than 50% respiratory change in the inferior vena cava dimension. IMPRESSION: Ms. Ricardo is 63 year old female with history of ARVC (PKP2 mutation), right ventricular dilation, moderate tricuspid regurgitation, VT s/p ICD and PTSD who presents for an established visit in heart failure clinic. NYHA Functional Class: II Stage: C heart failure Target weight: 155lbs 1. ARVC 2. Right ventricular dilation 3. Tricuspid regurgitation 4. VT 5. PTSD 6. Chronic diastolic congestive heart failure Heart Failure specific medications (list current, note updates or changes, note prior intolerance): BB: Toprol XL 37.5mg daily (Did not tolerate 50mg daily, has been tried twice and will not try again) ACEI/ARB/ARNI: none MRA: none SGLT2: Jardiance 10mg daily Diuretic: Lasix 40mg daily Digoxin: none Vasodilators: none Anti-arrhythmics: none Ivabradine: none Other anti-HTN: none PLAN AND RECOMMENDATIONS: 1. ARVC -NYHA functional class II, stage C, LVEF 59% -Etiology of heart failure is likely ARVC given prior MRI findings in 2016 and PKP2 mutation noted on genetic testing 03/2017. -Echocardiogram 12/04/2021 shows moderate RV dysfunction and moderate tricuspid regurgitation, compared to cardiac MRI in 2017 RV function has declined but unclear about duration of RV dysfunciton -TTE 08/02/22 shows unchanged moderate TR and RV function. No need for intervention at this time. -Continue Lasix 40mg daily PRN - Continue Toprol XL 37.5mg daily (Did not tolerate 50mg daily, has been tried twice and will not try again) - Continue Jardaince 10mg daily -No indication for ARNI/MRA given normal LV function at this time. -No indication for advanced therapies at this time, but will continue to monitor RV function and signs of LV function going forward given known ARVC. -Meeting with research coordinator later today to discuss ARVC study. Follow-up in 8 months with labs, ECG, ICD check and echocardiogram. I personally interviewed, confirmed and edited the above information as obtained by others I personally spent 35 minutes in total time involved in the management and care of this patient. We discussed natural history of disease, current treatment options, and future potential treatment options. We discussed diet, exercise, other non-medical management as above. Dave Alcala MD [facility] Section Of Heart Failure and Cardiac Transplant Medicine Heart and Vascular [facility] Desk [id number] [place] [address] documented in this encounter [facility] 10-23-2023 History of Present illness Narrative Images from the original note were not included. [facility] NOTE CC: Chris Ricardo is a 63 year old female who is seen at the request of Kelsie Dubon PA-C for evaluation of bilateral hearing loss, unspecified hearing loss type. My findings and recommendations will be communicated to the referring provider via the shared electronic medical record. ASSESSMENT: Sensorineural hearing loss (snhl) of both ears (primary encounter diagnosis) History of exposure to noise Tinnitus of both ears PLAN: - Discussed results of hearing test with patient; all patient questions answered - Educated patient on tinnitus and conservative management options; patient education handout provided - Annual hearing test, avoidance of noise exposure, discontinue Qtip use, no foreign objects in ears, hearing protection as needed - Advised patient on red flag warning signs, symptoms that warrant immediate evaluation in ER - Follow up in 12 months with hearing test; sooner if clinically indicated Reymundo Clayton PA-C [facility] HPI: 63 year old female presents to clinic for evaluation of bilateral heairng loss, unspecified hearing loss type. Patient reports decreased hearing over the last few months, left ear worse than right ear. Patient reports she failed hearing screening performed by [employer] in September 2023 and was advised to follow up with Audiology and ENT. Patient reports left ear worse than right ear, notes intermittent high pitched tinnitus bilaterally. Patient reports she will turn on TV with white noise at bedtime. However, patient reports recent switch to music and she has difficulty hearing music. Additionally, patient reports hearing changes have led to her misunderstanding conversation, interpreting conversations out of context. Patient endorses history of ear infections as a child, no PE tubes or previous ear surgeries. 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 Patient endorses history of trauma, Qtip caused TM perforation a few months ago. Patient endorses family history of hearing loss, father likely related to noise exposure and sister likely due to presbycusis. Hearing test today 10/23/2023: IMPRESSIONS RIGHT EAR: Sensorineural hearing loss. LEFT EAR: Sensorineural hearing loss. AUDIOLOGIC EVALUATION Following is a brief interpretation of the obtained findings from the audiologic evaluation. Refer to the Auditory Test Record for complete audiometric results. The patient was counseled about the test findings and appropriate audiologic recommendations were made. SUMMARY: See procedures tab for audiometric results. OTOSCOPY RIGHT EAR: Otoscopic inspection revealed ear canal was clear. LEFT EAR: Otoscopic inspection revealed ear canal was clear. TYMPANOMETRY Description of procedure: This test is an objective evaluation of middle ear function. CPT code: 94621 RIGHT EAR: Normal ME function. LEFT EAR: Normal ME function. ACOUSTIC REFLEXES Description of procedure: This test is an objective measure of auditory and facial nerve pathways. RIGHT EAR PROBE EAR: (ipsi right stimulus ear; contralateral left stimulus ear): Acoustic Reflex Pattern Did not test. Acoustic Reflex Decay (left stimulus ear): Did not test. LEFT EAR PROBE EAR: (ipsi left stimulus ear; contralateral right stimulus ear): Acoustic Reflex Pattern Did not test. Acoustic Reflex Decay (right stimulus ear): Did not test. PURE TONE AUDIOMETRY AND SPEECH TESTING Description of procedure: This test is an objective evaluation hearing sensitivity via air and bone conduction and speech recognition testing. CPT code: 69607 RIGHT EAR: Hearing Sensitivity: WNL at 250 Hz sloping to a mild SNHL rising to WNL 6741-3271 Hz. Word Recognition Score: Excellent (90-100%). WRS is consistent with hearing sensitivity. Words were presented at 60 dB HL is above (greater than or equal to 60 dB HL) intensity level for average conversational speech. The NU-6 Ordered by Difficulty Word List (10 words) was used for testing. Contralateral masking was used in the non-test ear. LEFT EAR: Hearing Sensitivity: Mild SNHL 250-500 Hz rising to WNL 3352-3032 Hz sloping to a mild SNHL. Word Recognition Score: Excellent (90-100%). WRS is consistent with hearing sensitivity. Words were presented at 60 dB HL which is above (greater than or equal to 60 dB HL) intensity level for average conversational speech. The NU-6 Ordered by Difficulty Word List (10 words) was used for testing. Contralateral masking was used in the non-test ear. Past medical history: PAST MEDICAL HISTORY Diagnosis Date Abnormal mole AK (actinic keratosis) 10/17/2020 Ankle instability, left 06/08/2019 Bee sting allergy 04/05/2020 Benign neoplasm of colon 04/16/2010 Tubular adenoma 04/16/12 Cataracts, bilateral Chronic constipation 06/13/2022 Chronic left shoulder pain 05/28/2018 Compound nevus 11/27/2020 Abd LLQ removed 11/2020 Congestive heart failure (HCC) 10/09/[address] Alcala: stage 2 Constipation Depression with anxiety 07/09/2017 Situational, Managed by Counseling. Diffuse cystic mastopathy Elevated blood sugar 05/01/2023 Essential hypertension Family history of breast cancer 07/04/2016 Family history of malignant neoplasm of breast 05/07/2007 2 maternal aunts History of COVID-19 03/25/202201/2022 Insomnia, unspecified rare Left shoulder pain 03/11/2011 Low testosterone level in female 2010 Mixed hyperlipidemia 2006 was on simvastatin, was able to come off med. Nonrheumatic tricuspid valve regurgitation 01/31/2022 Osteopenia ++FHx osteoporosis Peroneal tendinitis of left lower extremity 08/27/2017 Personal history of colonic polyps 04/21/2013 tubular adenoma. 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 Tucker and Dr. Alcala: Cardiomyopathy. Had cardiac arrest, has a pace maker/defibulator. Is limited to what exercising she can do. Plantar fasciitis of left foot 08/27/2017 Plantar fasciitis of right foot 07/18/2016 Presence of combination internal cardiac defibrillator (ICD) and pacemaker 01/14/2017 Ptosis, left eyelid benign PTSD (post-traumatic stress disorder) 08/13/2018 Unspecified closed fracture of ankle 2000 Ankle fracture left [place], [place] Urge incontinence Past surgical history: PAST SURGICAL HISTORY Procedure Laterality Date APPENDECTOMY 1971 [place], [place] BLEPHAROPLASTY, UPPER EYELID Left 2017 BREAST BIOPSY 2006 left breast ([facility]) CARDIAC CATH 01/05/2017 normal COLONOSCOPY 04/27/2013 normal, repeat in 5 yrs d/t pers hx polyps and poss fam hx gi malignancy COLONOSCOPY 05/04/2018 repeat 10 yrs, Dr. Hatfield COLSC FLX W/RMVL OF TUMOR POLYP LESION SNARE TQ 04/16/2010 tubular adenoma at 70cm DILATION & CURETTAGE DX&/THER NONOBSTETRIC 09/2008 Dilation & curettage, Uterine Ablation with Novasure LEAD,PACEMAKER/DEFIB COMBO 01/06/2017 NOVASURE 09/2008 PRK Bilateral 01/2002 in [place] RADIOFREQUENCY ABLATION 01/03/2017 TONSILLECTOMY PRIMARY/SECONDARY <AGE 12 1970 Tonsillectomy [place], [place] Current medication(s): Current Outpatient Medications Medication Sig empagliflozin (JARDIANCE) 10 mg tablet Take 1 tablet by mouth daily with breakfast. omeprazole (PRILOSEC) 20 mg capsule Take 1 capsule by mouth once daily. 1/2 hr before meal. atorvastatin (LIPITOR) 10 mg tablet Take 1 tablet by mouth daily at bedtime. For cholesterol. furosemide (LASIX) 40 mg tablet Take 1 tablet by mouth once daily. metoprolol succinate ER (TOPROL XL) 25 mg 24 hr tablet Take 1.5 tablets by mouth once daily. L. acidophilus/Bifid. animalis (PROBIOTIC) 5 billion cell cpSP Take 1 capsule by mouth once daily. EPINEPHrine (AUVI-Q) 0.3 mg/0.3 mL auto-injector Inject 0.3 mL intramuscularly as needed. glucosamine/chondr barrera A sod (OSTEO BI-FLEX ORAL) Take by mouth once daily. CALCIUM-VITAMIN D3 ORAL Take by mouth. 1200 calcium- 1000 units D3 acetaminophen (TYLENOL) 500 mg tablet Take 500 mg by mouth every 6 hours as needed. multivitamin ORAL tablet Take 1 tablet by mouth once daily. aspirin 81 mg ORAL Chew Take one(1) tablet daily. Current Facility-Administered Medications Medication Dose Route Frequency perflutren lipid microspheres 1.3 mL in NaCl (PF) 0.9% 10 mL injection (DEFINITY) INTRAVENOUS DIRECTED PRN sodium chloride 0.9 % (flush) 10 mL (BD POSIFLUSH) 10 mL INTRAVENOUS DIRECTED PRN perflutren lipid microspheres 1.3 mL in NaCl (PF) 0.9% 10 mL injection (DEFINITY) INTRAVENOUS DIRECTED PRN sodium chloride 0.9 % (flush) 10 mL (BD POSIFLUSH) 10 mL INTRAVENOUS DIRECTED PRN Allergies: ALLERGIES Allergen Reactions Bee Sting Swelling Social history: Social History Tobacco Use Smoking status: Former Packs/day: 0.50 Years: 10.00 Additional pack years: 0.00 Total pack years: 5.00 Types: Cigarettes Quit date: 08/04/1988 Years since quittin.2 Passive exposure: Never Smokeless tobacco: Never Tobacco comments: quit 32 years ago Vaping Use Vaping Use: Never used Substance Use Topics Alcohol use: No Drug use: No Family history: FAMILY HISTORY Problem Relation Age of Onset Hypertension Mother dx age 30's Headache Mother Osteoporosis Mother Cataract Mother Lipids Mother Dementia Mother Alzheimer's Disease Father first symptoms around 70 Diabetes Father late 70's Hypertension Father Lipids Father Arthritis Father Cataract Father other (Abdominal Aortic Aneurysm) Maternal Grandmother Diabetes Paternal Grandmother Cancer Paternal Grandfather unknown Skin Cancer Daughter Breast Cancer Maternal Aunt x2 other (Abdominal Aortic Aneurysm) Maternal Aunt x2 Osteoporosis Maternal Aunt Osteoporosis Maternal Aunt Osteoporosis Maternal Aunt Osteoporosis Maternal Aunt other (Abdominal Aortic Aneurysm) Maternal Uncle Osteoporosis Maternal Uncle Osteoporosis Maternal Uncle Osteoporosis Maternal Uncle Osteoporosis Maternal Uncle Colon Cancer Other none other (cousin of blood clot; had dm, af and etoh) Other There are no exam notes on file for this visit. ROS: CONSTITUTIONAL: No fevers, chills, nightsweats, unintended weight loss HEAD: - headaches, - head injury EYES: + glasses/contact lens, - changes in vision, - diplopia, - blurry vision, - floaters EARS: + hearing loss, + change in hearing, + tinnitus, - otalgia, - ear pressure, - ear congestion, - otorrhea, - itching, - autophony, + ear infections, - PE tubes NOSE & SINUSES: - nasal congestion, - rhinorrhea, - PND, - epistaxis, - sense of smell, - history of nasal polyps, - sinus trouble, - sinus pressure, - sinus pain MOUTH & THROAT: - soreness, - dryness, - ulcers, - sore throat, - hoarseness, - change in voice, - teeth (caries, dentures, extractions, abscesses) PULM: No dyspnea, unexplained cough CV: No chest pain, shortness of breath, leg swelling, or palpitations GI: No dysphagia/odynophagia, + problematic reflux. No nausea, vomiting, or diarrhea NEURO: + balance problems, + dizziness. No peripheral weakness/paresthesias or numbness PSYCH: + depression, + anxiety PHYSICAL EXAM: GENERAL: 63 year old female is well developed, well nourished, without obvious deformities, in no acute distress COMMUNICATION: The patient speaks with a normal, clear voice without hoarseness. No stridor or stertor. Hearing is grossly normal OVERALL FACIAL APPEARANCE: No obvious scars, lesions, or masses EYES: Extraocular muscles are intact, no diplopia on primary gaze EARS: Externally normal in appearance, without scars, lesions, masses, or tenderness. Air conduction is equal bilaterally. Marcano is in the midline. Rinne is positive bilaterally (AC > BC). Right EAC: patent; no swelling, redness, or obstruction R TM: visualized and intact; pearly willett and translucent, landmarks undistorted; no fluid behind TM R Pneumotoscopy: TM is mobile Left EAC: patent; no swelling, redness, or obstruction L TM: visualized and intact; pearly willett and translucent, landmarks undistorted; no fluid behind TM L Pneumotoscopy: TM is mobile NOSE: Externally normal in appearance, without scars, lesions, or masses. Nasal passageways are patent. The mucosa is pink and moist without lesions, visible turbinates grossly normal on anterior rhinoscopy. Septum is midline. ORAL CAVITY AND OROPHARYNX: Teeth are in fair repair and nontender. The lips, gums, oral mucosa, hard and soft palates, tongue, tonsil area, and posterior pharyngeal mucosa are without lesions. Uvula midline. No pharyngeal swelling, oropharyngeal exudate, posterior oropharyngeal erythema, or uvula swelling. Gag reflex intact. NECK: The neck appears symmetric without scars and on palpation is without masses or lymphadenopathy. Trachea is midline and mobile. Full range of motion without symptoms. NEURO: Patient is Alert and Oriented to person, place, time, and situation. Cranial nerves II-XII grossly intact RESPIRATORY: Breathing comfortably, no evidence accessory muscle use, no intercostal retractions CV: Strong carotid artery pulse with no bruit RADS: None LABS: Relevant labs were reviewed and discussed with patient. OUTSIDE RECORDS: None PROCEDURE: None Reymundo Clayton PA-C Comprehensive ENT Medical Decision Making: Problems: Low: Stable chronic illness Data: Unique test result(s) reviewed: 1 Risk: Low: Low risk from testing/treatment Medical Decision Making Level: 3 - Low documented in this encounter [facility] 10-23-2023 History of Present illness Narrative [facility] AUDIOLOGIC EVALUATION REPORT Name: Chris Ricardo CCF#: [id number] Date of Service: 10/23/2023 Date of : 1960 Age: [age] year old Referred by: Kelsie Doshi PA-C Referred for: Evaluation of suspected change in hearing, tinnitus, or balance. Referral documented: No referral on file. Patient's major complaints: Reduced hearing left ear greater than right ear, Tinnitus in both ears, Dizziness/vertigo/imbalance, History of noise exposure from either occupational or recreational sources. Chris Ricardo, a 63 year old female, was seen today for an initial audiologic evaluation prior to appointment with Reymundo lCayton PA-C. Per Epic review, history is significant for failed a hearing screening by [employer] at the [facility]. She has noticed that her hearing has declined in her LEFT ear. Today, patient reported: Hearing: She perceives bilateral hearing difficulties (L>R), which she has perceived for a couple months. She stated she often mishears what others say and she has to turn the TV up louder. When she lays on her LEFT side, she cannot hear the music that's playing at night or the background TV. Tinnitus: Perceives intermittent bilateral ringing or sometimes whooshing, which she has perceived for about 4-6 months. Dizziness: She stated she experiences of lightheadedness and feeling off-balance due to cardiac issues she has (cardiomyopathy). She has these episodes often when she changes positions. Otalgia: Denied. Aural fullness/pressure: Denied. Otologic history: A couple months ago her RIGHT eardrum burst from a Q-tip and there was blood on it. She went to urgent care who said she ruptured her TM, but nothing was done about it and it healed on its own. Noise exposure: Her dad is a gale so she was exposed to heavy machinery when she was younger. She helps her do yard work and wears HPD when doing so. History of chemotherapy or radiation: Denied. Family history of hearing loss: Denied. Other Concerns: Denied. IMPRESSIONS RIGHT EAR: Sensorineural hearing loss. LEFT EAR: Sensorineural hearing loss. AUDIOLOGIC EVALUATION Following is a brief interpretation of the obtained findings from the audiologic evaluation. Refer to the Auditory Test Record for complete audiometric results. The patient was counseled about the test findings and appropriate audiologic recommendations were made. SUMMARY: See procedures tab for audiometric results. OTOSCOPY RIGHT EAR: Otoscopic inspection revealed ear canal was clear. LEFT EAR: Otoscopic inspection revealed ear canal was clear. TYMPANOMETRY Description of procedure: This test is an objective evaluation of middle ear function. CPT code: 88740 RIGHT EAR: Normal ME function. LEFT EAR: Normal ME function. ACOUSTIC REFLEXES Description of procedure: This test is an objective measure of auditory and facial nerve pathways. RIGHT EAR PROBE EAR: (ipsi right stimulus ear; contralateral left stimulus ear): Acoustic Reflex Pattern Did not test. Acoustic Reflex Decay (left stimulus ear): Did not test. LEFT EAR PROBE EAR: (ipsi left stimulus ear; contralateral right stimulus ear): Acoustic Reflex Pattern Did not test. Acoustic Reflex Decay (right stimulus ear): Did not test. PURE TONE AUDIOMETRY AND SPEECH TESTING Description of procedure: This test is an objective evaluation hearing sensitivity via air and bone conduction and speech recognition testing. CPT code: 39865 RIGHT EAR: Hearing Sensitivity: WNL at 250 Hz sloping to a mild SNHL rising to WNL 4318-3519 Hz. Word Recognition Score: Excellent (90-100%). WRS is consistent with hearing sensitivity. Words were presented at 60 dB HL is above (greater than or equal to 60 dB HL) intensity level for average conversational speech. The NU-6 Ordered by Difficulty Word List (10 words) was used for testing. Contralateral masking was used in the non-test ear. LEFT EAR: Hearing Sensitivity: Mild SNHL 250-500 Hz rising to WNL 2197-8075 Hz sloping to a mild SNHL. Word Recognition Score: Excellent (90-100%). WRS is consistent with hearing sensitivity. Words were presented at 60 dB HL which is above (greater than or equal to 60 dB HL) intensity level for average conversational speech. The NU-6 Ordered by Difficulty Word List (10 words) was used for testing. Contralateral masking was used in the non-test ear. RECOMMENDATIONS * Continue medical follow-up with Alton Eisenberg MD. * Continue with scheduled appointment with Reymundo Clayton PA-C. * Return for re-evaluation as medically indicated or sooner if change is noted. * The patient was counseled about hearing conservation and use of noise protectors. If interested in custom hearing protection, please call [phone] to schedule an [facility] appointment. * Patient was counseled to maintain a sound enriched environment to assist in managing the tinnitus. * The patient was counseled regarding effective communication strategies to enhance communication ability. Sg Sargent. Audiology Student Shemar Balnd, [facility] Abbrev- iation Definition Degree of hearing sensitivity dB range WNL within normal limits WNL 0 - 20 SNHL sensorineural hearing loss Mild 20-40 CHL conductive hearing loss Moderate 40-55 MHL mixed hearing loss Moderately-Severe 55-70 WRS word recognition score Severe 70-90 ME middle ear Profound 90 + TM tympanic membrane documented in this encounter [facility] 10-10-2023 Miscellaneous Notes October 10, 2023 PID: [id number] Chris Ricardo [address] [place] [id number] Dear Ms. Ricardo, We are pleased to inform you that the results of your recent breast imaging exam on 10/09/2023 are normal. Your mammogram demonstrates that you have dense breast tissue, which could hide abnormalities. Dense breast tissue, in and of itself, is a relatively common condition. Therefore, this information is not provided to cause undue concern; rather, it is to raise your awareness and promote discussion with your health care provider regarding the presence of dense breast tissue in addition to other risk factors. Early detection of cancer is very important. We also understand recommendations regarding breast cancer screening are controversial. Please discuss with your primary care provider which strategy is best for you and whether a mammogram is right for you. Your imaging studies and report will be kept on file at [facility] as part of your permanent medical record and are available for your continuing care. Thank you for allowing us to help in meeting your health care needs. Sincerely, Dr. Frausto Interpreting Radiologist [facility] (Normal over 40) documented in this encounter [facility] 10-09-2023 History of Present illness Narrative Green Building Engineer offered: Patient declines. Chris is a 63 year old who presents for an annual gynecologic exam without complaints. Postmenopausal: yes HRT use: No. 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 Alcala: stage 2 Constipation Depression with anxiety 07/09/2017 Situational, Managed by Counseling. Diffuse cystic mastopathy Elevated blood sugar 05/01/2023 Essential hypertension Family history of breast cancer 07/04/2016 Family history of malignant neoplasm of breast 05/07/2007 2 maternal aunts History of COVID-19 03/25/202201/2022 Insomnia, unspecified rare Left shoulder pain 03/11/2011 Low testosterone level in female 2010 Mixed hyperlipidemia 2006 was on simvastatin, was able to come off med. Nonrheumatic tricuspid valve regurgitation 01/31/2022 Osteopenia ++FHx osteoporosis Peroneal tendinitis of left lower extremity 08/27/2017 Personal history of colonic polyps 04/21/2013 tubular adenoma. 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 Tucker and Dr. Alcala: Cardiomyopathy. Had cardiac arrest, has a pace maker/defibulator. Is limited to what exercising she can do. Plantar fasciitis of left foot 08/27/2017 Plantar fasciitis of right foot 07/18/2016 Presence of combination internal cardiac defibrillator (ICD) and pacemaker 01/14/2017 Ptosis, left eyelid benign PTSD (post-traumatic stress disorder) 08/13/2018 Unspecified closed fracture of ankle 2000 Ankle fracture left [place], [place] Urge incontinence PAST SURGICAL HISTORY Procedure Laterality Date APPENDECTOMY 1971 [place], [place] BLEPHAROPLASTY, UPPER EYELID Left 2017 BREAST BIOPSY 2006 left breast ([facility]) CARDIAC CATH 01/05/2017 normal COLONOSCOPY 04/27/2013 normal, repeat in 5 yrs d/t pers hx polyps and poss fam hx gi malignancy COLONOSCOPY 05/04/2018 repeat 10 yrs, Dr. Hatfield COLSC FLX W/RMVL OF TUMOR POLYP LESION SNARE TQ 04/16/2010 tubular adenoma at 70cm DILATION & CURETTAGE DX&/THER NONOBSTETRIC 09/2008 Dilation & curettage, Uterine Ablation with Novasure LEAD,PACEMAKER/DEFIB COMBO 01/06/2017 NOVASURE 09/2008 PRK Bilateral 01/2002 in [place] RADIOFREQUENCY ABLATION 01/03/2017 TONSILLECTOMY PRIMARY/SECONDARY <AGE 12 1970 [place]illectomy [place], [place] FAMILY HISTORY Problem Relation Age of Onset Hypertension Mother dx age 30's Headache Mother Osteoporosis Mother Cataract Mother Lipids Mother Dementia Mother Alzheimer's Disease Father first symptoms around 70 Diabetes Father late 70's Hypertension Father Lipids Father Arthritis Father Cataract Father other (Abdominal Aortic Aneurysm) Maternal Grandmother Diabetes Paternal Grandmother Cancer Paternal Grandfather unknown Skin Cancer Daughter Breast Cancer Maternal Aunt x2 other (Abdominal Aortic Aneurysm) Maternal Aunt x2 Osteoporosis Maternal Aunt Osteoporosis Maternal Aunt Osteoporosis Maternal Aunt Osteoporosis Maternal Aunt other (Abdominal Aortic Aneurysm) Maternal Uncle Osteoporosis Maternal Uncle Osteoporosis Maternal Uncle Osteoporosis Maternal Uncle Osteoporosis Maternal Uncle Colon Cancer Other none other (cousin of blood clot; had dm, af and etoh) Other SOCIAL HISTORY Social History Tobacco Use Smoking status: Former Packs/day: 0.50 Years: 10.00 Additional pack years: 0.00 Total pack years: 5.00 Types: Cigarettes Quit date: 08/04/1988 Years since quittin.2 Passive exposure: Never Smokeless tobacco: Never Tobacco comments: quit 32 years ago Vaping Use Vaping Use: Never used Substance Use Topics Alcohol use: No Drug use: No REVIEW OF SYSTEMS Abdomen: No abdominal pain, nausea, vomiting, diarrhea, or constipation. No bloating, early satiety, indigestion, or increased flatulence. Bladder: No dysuria, gross hematuria, urinary frequency, urinary urgency, or incontinence Breast: No breast lumps, nipple d/c, overlying skin changes, redness or skin retraction Allergies and current medication updated:Yes EXAM: Ht 5' 4.5 (1.64m) Wt 155 lb 6.4 oz (70.5kg) LMP 09/29/2008 BMI 26.27 kg/(m^2). GENERAL: pleasant, female in no apparent distress HEENT: Normocephalic, atraumatic, mucus membranes moist, and no lesions NECK: Supple, full range of motion, no adenopathy, and thyroid normal DERMATOLOGY: Normal, without lesions, non-icteric, and non-hirsute BREAST: soft, non-tender, symmetric, no dominant mass, normal nipple-areolar complex, no lymphadenopathy, and no nipple discharge CHEST: Normal inspiratory effort ABDOMEN: soft, non-tender, and no masses PELVIC: external genitalia normal, normal Bartholin's glands, urethra, [place]'s glands, no vulvar lesions, no cervical lesions, good vaginal support, physiologic discharge present, normal appearing perineal body and perianal region BIMANUAL: uterus normal size, shape and consistency, no adnexal masses, and non-tender RECTOVAGINAL: deferred. NEURO: alert and oriented x3,exam grossly non-focal EXTREMITIES: normal ASSESSMENT/PLAN: 1) Health maintenance: Pap/HPV up to date. Mammogram ordered Colon cancer screening: up to date with screening 2) Follow up one year or sooner as needed Reese Pagan MD documented in this encounter [facility] 10-09-2023 History of Present illness Narrative Radiology Service Progress Note PATIENT NAME: Chris Ricardo DATE OF SERVICE: October 09, 2023 TIME: 1:47 PM PATIENT IDENTITY VERIFICATION COMPLETED USING TWO (2) IDENTIFIERS: Name and Date of confirmed by patient verbally. FALL SCREENING: Has the patient had 2 falls in the last year or 1 fall with injury or currently using an Ambulatory Assistive Device (Walker, Cane, Wheelchair, Crutches, etc.)? No PATIENT GENDER DATA: Female. status: : No status: NO. PATIENT RELEVANT IMPLANT DATA REVIEWED: Not Applicable PATIENT PRESENTS WITH AN IMPLANTABLE OR ATTACHED AIR INTERCEPT CONTROLLER: No RADIOLOGY DEPARTMENT: Mammography PERIPHERAL IV DATA: Not applicable SIGNED BY: Ramandeep Roberts October 09, 2023 1:47 PM documented in this encounter [facility] 09-08-2023 Miscellaneous Notes Pre Access sent the following msg: The referral was created and once it was created it was dropped to our WQ. It still needs to be scheduled, however, once it hits our WQ it will be assigned to a caregiver to review and submit to the insurance company. In order to get this taken care of as soon as possible the patient will need to be scheduled. But we work in date of service order of when the patient is scheduled so that is the delay. Explained this to the patient and sent to the schedulers to set up the ENT appt. Referral still shows pending authorization. Please leave encounter open until office has an answer for pt. Sandy Ritchie LPN Pt calling in asking about her ENT referral from 08/28. She states she got on her insurance website and looked under referrals/authorizations and doesn't see anything there. She would like to get an appt scheduled and is wondering what the hold up is. Msg sent to Preaccess for follow up. Pt would like a return call when we receive an answer. documented in this encounter [facility] 07-08-2023 History of Present illness Narrative This note was created using NoteWriter. Subjective Chris Ricardo is a 63 year old female. 63 year old female with PMH hyperlipidemia, GERD, PTSD and depression presents for wound. Acute onset one hour ago. Left index finger States using kitchen knife to cut up veggies for guacamole States lost control of knife, +laceration left index finger Has attempted pressure, But bleeding has controlled. Right hand dominant. Last tetanus 2016 The history is provided by the patient. No senior functional analyst was used. Laceration Incident onset: 1 hour ago. Pain location: left index finger. Size: < 1 cm. The laceration mechanism was a clean knife. The patient is experiencing no pain. The pain has been Constant since onset. She reports no foreign bodies present. Her tetanus status is out of date. PAST MEDICAL HISTORY Diagnosis Date Abnormal mole AK (actinic keratosis) 10/17/2020 Ankle instability, left 06/08/2019 Bee sting allergy 04/05/2020 Benign neoplasm of colon 04/16/2010 Tubular adenoma 04/16/12 Cataracts, bilateral Chronic constipation 06/13/2022 Chronic left shoulder pain 05/28/2018 Compound nevus 11/27/2020 Abd LLQ removed 11/2020 Congestive heart failure (HCC) 10/09/[address] Alcala: stage 2 Constipation Depression with anxiety 07/09/2017 Situational, Managed by Counseling. Diffuse cystic mastopathy Elevated blood sugar 05/01/2023 Essential hypertension Family history of breast cancer 07/04/2016 Family history of malignant neoplasm of breast 05/07/2007 2 maternal aunts History of COVID-19 03/25/202201/2022 Insomnia, unspecified rare Left shoulder pain 03/11/2011 Low testosterone level in female 2010 Mixed hyperlipidemia 2006 was on simvastatin, was able to come off med. Nonrheumatic tricuspid valve regurgitation 01/31/2022 Osteopenia ++FHx osteoporosis Peroneal tendinitis of left lower extremity 08/27/2017 Personal history of colonic polyps 04/21/2013 tubular adenoma. 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 Tucker and Dr. Alcala: Cardiomyopathy. Had cardiac arrest, has a pace maker/defibulator. Is limited to what exercising she can do. Plantar fasciitis of left foot 08/27/2017 Plantar fasciitis of right foot 07/18/2016 Presence of combination internal cardiac defibrillator (ICD) and pacemaker 01/14/2017 Ptosis, left eyelid benign PTSD (post-traumatic stress disorder) 08/13/2018 Unspecified closed fracture of ankle 2000 Ankle fracture left [place], [place] Urge incontinence PAST SURGICAL HISTORY Procedure Laterality Date APPENDECTOMY 1971 [place], [place] BLEPHAROPLASTY, UPPER EYELID Left 2017 BREAST BIOPSY 2006 left breast ([facility]) CARDIAC CATH 01/05/2017 normal COLONOSCOPY 04/27/2013 normal, repeat in 5 yrs d/t pers hx polyps and poss fam hx gi malignancy COLONOSCOPY 05/04/2018 repeat 10 yrs, Dr. Hatfield COLSC FLX W/RMVL OF TUMOR POLYP LESION SNARE TQ 04/16/2010 tubular adenoma at 70cm DILATION & CURETTAGE DX&/THER NONOBSTETRIC 09/2008 Dilation & curettage, Uterine Ablation with Novasure LEAD,PACEMAKER/DEFIB COMBO 01/06/2017 NOVASURE 09/2008 PRK Bilateral 01/2002 in [place] RADIOFREQUENCY ABLATION 01/03/2017 TONSILLECTOMY PRIMARY/SECONDARY <AGE 12 1970 Tonsillectomy [place], [place] ALLERGIES Bee Sting MEDICATIONS furosemide (LASIX) 40 mg tablet^Take 1 tablet by mouth once daily as needed (leg swelling).^Disp: 90 tablet^Rfl: 3 atorvastatin (LIPITOR) 10 mg tablet^Take 1 tablet by mouth daily at bedtime. For cholesterol.^Disp: 90 tablet^Rfl: 1 metoprolol succinate ER (TOPROL XL) 25 mg 24 hr tablet^Take 1.5 tablets by mouth once daily.^Disp: 135 tablet^Rfl: 3 omeprazole (PRILOSEC) 20 mg capsule^Take 1 capsule by mouth twice daily. 1/2 hr before meal.^Disp: 180 capsule^Rfl: 1 (Patient taking differently: Take 20 mg by mouth once daily. 1/2 hr before meal.) L. acidophilus/Bifid. animalis (PROBIOTIC) 5 billion cell cpSP^Take 1 capsule by mouth once daily.^Disp: ^Rfl: EPINEPHrine (AUVI-Q) 0.3 mg/0.3 mL auto-injector^Inject 0.3 mL intramuscularly as needed.^Disp: 2 Each^Rfl: 1 glucosamine/chondr barrera A sod (OSTEO BI-FLEX ORAL)^Take by mouth.^Disp: ^Rfl: CALCIUM-VITAMIN D3 ORAL^Take by mouth. 1200 calcium- 1000 units D3^Disp: ^Rfl: acetaminophen (TYLENOL) 500 mg tablet^Take 500 mg by mouth every 6 hours as needed.^Disp: ^Rfl: multivitamin ORAL tablet^Take 1 tablet by mouth once daily.^Disp: ^Rfl: 0 aspirin 81 mg ORAL Chew^Take one(1) tablet daily.^Disp: ^Rfl: 0 FAMILY HISTORY Problem Relation Age of Onset Hypertension Mother dx age 30's Headache Mother Osteoporosis Mother Cataract Mother Lipids Mother Dementia Mother Alzheimer's Disease Father first symptoms around 70 Diabetes Father late 70's Hypertension Father Lipids Father Arthritis Father Cataract Father other (Abdominal Aortic Aneurysm) Maternal Grandmother Diabetes Paternal Grandmother Cancer Paternal Grandfather unknown Skin Cancer Daughter Breast Cancer Maternal Aunt x2 other (Abdominal Aortic Aneurysm) Maternal Aunt x2 Osteoporosis Maternal Aunt Osteoporosis Maternal Aunt Osteoporosis Maternal Aunt Osteoporosis Maternal Aunt other (Abdominal Aortic Aneurysm) Maternal Uncle Osteoporosis Maternal Uncle Osteoporosis Maternal Uncle Osteoporosis Maternal Uncle Osteoporosis Maternal Uncle Colon Cancer Other none other (cousin of blood clot; had dm, af and etoh) Other Social History Tobacco Use Smoking status: Former Packs/day: 0.50 Years: 10.00 Additional pack years: 0.00 Total pack years: 5.00 Types: Cigarettes Quit date: 08/04/1988 Years since quittin.9 Smokeless tobacco: Never Tobacco comments: quit 32 years ago Vaping Use Vaping Use: Never used Substance Use Topics Alcohol use: No Drug use: No Review of Systems Constitutional: Negative for activity change, appetite change and chills. Eyes: Negative for pain, discharge, redness and itching. Respiratory: Negative for apnea, cough, choking and chest tightness. Cardiovascular: Negative for chest pain, palpitations and leg swelling. Gastrointestinal: Negative for abdominal pain, diarrhea, nausea and vomiting. Musculoskeletal: Negative for back pain. Skin: Positive for wound. Negative for color change, pallor and rash. Allergic/Immunologic: Negative for environmental allergies, food allergies and immunocompromised state. Neurological: Negative for facial asymmetry and headaches. Hematological: Negative for adenopathy. Does not bruise/bleed easily. Psychiatric/Behavioral: Negative for agitation and behavioral problems. Objective BP 122/80 Pulse 84 Temp 36.6 C (97.8 F) Resp 16 Wt 72.1 kg (159 lb) LMP 09/29/2008 SpO2 98% BMI 26.87 kg/m Physical Exam Vitals and nursing note reviewed. Constitutional: General: She is not in acute distress. Appearance: Normal appearance. She is normal weight. She is not ill-appearing, toxic-appearing or diaphoretic. HENT: Head: Normocephalic and atraumatic. Right Ear: Ear canal and external ear normal. Left Ear: Ear canal and external ear normal. Nose: Nose normal. No congestion or rhinorrhea. Mouth/Throat: Mouth: Mucous membranes are moist. Pharynx: No oropharyngeal exudate or posterior oropharyngeal erythema. Eyes: General: Right eye: No discharge. Left eye: No discharge. Extraocular Movements: Extraocular movements intact. Conjunctiva/sclera: Conjunctivae normal. Pupils: Pupils are equal, round, and reactive to light. Cardiovascular: Rate and Rhythm: Normal rate and regular rhythm. Pulses: Normal pulses. Heart sounds: Normal heart sounds. No murmur heard. No friction rub. Pulmonary: Effort: Pulmonary effort is normal. No respiratory distress. Breath sounds: Normal breath sounds. No stridor. No wheezing, rhonchi or rales. Chest: Chest wall: No tenderness. Abdominal: General: Abdomen is flat. There is no distension. Palpations: Abdomen is soft. There is no mass. Tenderness: There is no abdominal tenderness. There is no right CVA tenderness, left CVA tenderness, guarding or rebound. Hernia: No hernia is present. Musculoskeletal: General: No swelling, tenderness, deformity or signs of injury. Normal range of motion. Cervical back: Normal range of motion and neck supple. No rigidity. Right lower leg: No edema. Left lower leg: No edema. Comments: Left medial finger tip with avulsion style laceration Oozing blood. Controlled with pressure +flexion +extension Brisk cap refill Lymphadenopathy: Cervical: No cervical adenopathy. Skin: General: Skin is warm and dry. Coloration: Skin is not jaundiced or pale. Findings: No bruising, erythema, lesion or rash. Neurological: General: No focal deficit present. Mental Status: She is alert and oriented to person, place, and time. Cranial Nerves: No cranial nerve deficit. Sensory: No sensory deficit. Motor: No weakness. Coordination: Coordination normal. Gait: Gait normal. Psychiatric: Mood and Affect: Mood normal. Behavior: Behavior normal. Thought Content: Thought content normal. Judgment: Judgment normal. Assessment and Plan ASSESSMENT/PLAN: 1. Encounter for immunization - ICD9: V03.89, ICD10: Z23 (primary diagnosis) Last Tdap 2017 Administered here in clinic - TDAP VACCINE, AGE 7+ YR (ADACEL, BOOSTRIX) 2. Avulsion of skin of finger, initial encounter - ICD9: 883.0, ICD10: S61.209A Occurred one hour LETTERER Avulsion style and suturing not indicated Hemostat Surgicel applied Tube gauze dressing Discussed wound care Red flags - TDAP VACCINE, AGE 7+ YR (ADACEL, BOOSTRIX) Mary Alice Michael APRN.[employer] documented in this encounter [facility] 06-23-2023 Miscellaneous Notes Pt notified of results via [employer]. Olga Qiu Ma ----- Message from Chip Hernandez MD sent at 06/22/2023 2:09 PM EST ----- US shows stones inside each kidney without signs of obstruction or fluid backup into the kidneys. Continue treatment as discussed in office. documented in this encounter [facility] 06-19-2023 Miscellaneous Notes Reviewed. Phoned patient and reviewed Dr Hernandez's message with her. Patient voiced understanding and reports she will update the office vis [employer] as she feels it's faster most times vs waiting on hold for a nurse. I would have her increase her lasix to 40 mg BID Starting today and continuing through the weekend. Limit sodium in diet to <2,000 mg per day. Keep legs elevated when resting. Contact cardiology with update on her symptoms. Check daily weights and call with more than 2-3 lb weight gain in 24 hours or 5 lbs total. Call tomorrow and Friday with update on weight and symptoms. Go to the ED with worsening SOB, chest pain, palpitations, or severe swelling. Will forward to PCP to notify of changes to regimen. Recommend OV early next week for follow up. Pt called and is notified of providers results and instructions. Pt voices understanding. Pt states she weighs 155.5 which is about a 1 lb decrease from yesterday. She states she has swelling from calves up through thighs and abdomen. Yesterday she didn't have any, but she was also wearing her compression socks. She states it's pitting she indentation from socks. Had some SOB carrying light laundry basket up the stairs, which she doesn't typically have. States she has been more tired that usual this week. Pt states she eats 3 low sodium meals a day. She states she tries to follow the Mediterranean diet. Janae Alfaro, RN Patient with mild elevation in her BNP over 200 which could be early sign of CHF exacerbation. She did not have any crackles on her lung exam yesterday or swelling in her legs despite 4 lb weight gain. What was her weight today? Kidney function and electrolytes normal on Lasix. Blood counts normal. Noted mild hypoglycemia. Recommend eating 3 low sodium meals daily to prevent recurrence. documented in this encounter [facility] 06-18-2023 History of Present illness Narrative Chief Complaint Patient presents with: Pain: Left side low back pain. Some nausea yesterday and this morning on and off. Has been told in the past she has kidney stones. Abnormal Weight Gain: 4lb weight gain in the last 5 days HPI Chris Ricardo is a 63 year old female who presents here today for Above Complaints.. Patient complaining of left flank pain which started this morning. Described as dull pain, 4/10 which resolved after getting up and moving around. Woke her up from sleep. Has had some nausea yesterday and today without vomiting. Denies exacerbating factors. Not treating with anything OTC. Admits to intermittent urinary urgency Denies hematuria, dysuria, frequency, abdominal pain, fever/chills, abnormal vaginal bleeding or discharge, injury to her back. Also notes 4 lb weight gain in the last 5 days. On Lasix 40 mg daily due to her CHF which is managed by Dr. Alcala. Did eat higher sodium diet about 4-5 days ago. Denies chest pain, SOB, LE edema. Has been advised to call them if she gains more than 6 lbs. Past medical history, appointments, medications, allergies reviewed. Previous Medical History PAST MEDICAL HISTORY Diagnosis Date Abnormal mole AK (actinic keratosis) 10/17/2020 Ankle instability, left 06/08/2019 Bee sting allergy 04/05/2020 Benign neoplasm of colon 04/16/2010 Tubular adenoma 04/16/12 Cataracts, bilateral Chronic constipation 06/13/2022 Chronic left shoulder pain 05/28/2018 Compound nevus 11/27/2020 Abd LLQ removed 11/2020 Congestive heart failure (HCC) 10/09/[address] Alcala: stage 2 Constipation Depression with anxiety 07/09/2017 Situational, Managed by Counseling. Diffuse cystic mastopathy Elevated blood sugar 05/01/2023 Essential hypertension Family history of breast cancer 07/04/2016 Family history of malignant neoplasm of breast 05/07/2007 2 maternal aunts History of COVID-19 03/25/202201/2022 Insomnia, unspecified rare Left shoulder pain 03/11/2011 Low testosterone level in female 2010 Mixed hyperlipidemia 2006 was on simvastatin, was able to come off med. Nonrheumatic tricuspid valve regurgitation 01/31/2022 Osteopenia ++FHx osteoporosis Peroneal tendinitis of left lower extremity 08/27/2017 Personal history of colonic polyps 04/21/2013 tubular adenoma. 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 Tucker and Dr. Alcala: Cardiomyopathy. Had cardiac arrest, has a pace maker/defibulator. Is limited to what exercising she can do. Plantar fasciitis of left foot 08/27/2017 Plantar fasciitis of right foot 07/18/2016 Presence of combination internal cardiac defibrillator (ICD) and pacemaker 01/14/2017 Ptosis, left eyelid benign PTSD (post-traumatic stress disorder) 08/13/2018 Unspecified closed fracture of ankle 2000 Ankle fracture left [place], [place] Urge incontinence Previous Surgical History PAST SURGICAL HISTORY Procedure Laterality Date APPENDECTOMY 1970 [place], [place] BLEPHAROPLASTY, UPPER EYELID Left 2016 BREAST BIOPSY 2006 left breast ([facility]) CARDIAC CATH 01/05/2017 normal COLONOSCOPY 04/27/2013 normal, repeat in 5 yrs d/t pers hx polyps and poss fam hx gi malignancy COLONOSCOPY 05/04/2018 repeat 10 yrs, Dr. Hatfield COLSC FLX W/RMVL OF TUMOR POLYP LESION SNARE TQ 04/16/2010 tubular adenoma at 70cm DILATION & CURETTAGE DX&/THER NONOBSTETRIC 09/2008 Dilation & curettage, Uterine Ablation with Novasure LEAD,PACEMAKER/DEFIB COMBO 01/06/2017 NOVASURE 09/2008 PRK Bilateral 01/2002 in [place] RADIOFREQUENCY ABLATION 01/03/2017 TONSILLECTOMY PRIMARY/SECONDARY <AGE 12 1970 T[place]illectomy [place], [place] Family History FAMILY HISTORY Problem Relation Age of Onset Hypertension Mother dx age 30's Headache Mother Osteoporosis Mother Cataract Mother Lipids Mother Dementia Mother Alzheimer's Disease Father first symptoms around 70 Diabetes Father late 70's Hypertension Father Lipids Father Arthritis Father Cataract Father other (Abdominal Aortic Aneurysm) Maternal Grandmother Diabetes Paternal Grandmother Cancer Paternal Grandfather unknown Skin Cancer Daughter Breast Cancer Maternal Aunt x2 other (Abdominal Aortic Aneurysm) Maternal Aunt x2 Osteoporosis Maternal Aunt Osteoporosis Maternal Aunt Osteoporosis Maternal Aunt Osteoporosis Maternal Aunt other (Abdominal Aortic Aneurysm) Maternal Uncle Osteoporosis Maternal Uncle Osteoporosis Maternal Uncle Osteoporosis Maternal Uncle Osteoporosis Maternal Uncle Colon Cancer Other none other (cousin of blood clot; had dm, af and etoh) Other Patient Allergies ALLERGIES Allergen Reactions Bee Sting Swelling Current Medications Current Outpatient Medications on File Prior to Visit Medication Sig furosemide (LASIX) 40 mg tablet Take 1 tablet by mouth once daily as needed (leg swelling). (Patient taking differently: Take 40 mg by mouth once daily.) atorvastatin (LIPITOR) 10 mg tablet Take 1 tablet by mouth daily at bedtime. For cholesterol. metoprolol succinate ER (TOPROL XL) 25 mg 24 hr tablet Take 1.5 tablets by mouth once daily. omeprazole (PRILOSEC) 20 mg capsule Take 1 capsule by mouth twice daily. 1/2 hr before meal. (Patient taking differently: Take 20 mg by mouth once daily. 1/2 hr before meal.) L. acidophilus/Bifid. animalis (PROBIOTIC) 5 billion cell cpSP Take 1 capsule by mouth once daily. EPINEPHrine (AUVI-Q) 0.3 mg/0.3 mL auto-injector Inject 0.3 mL intramuscularly as needed. glucosamine/chondr barrera A sod (OSTEO BI-FLEX ORAL) Take by mouth. CALCIUM-VITAMIN D3 ORAL Take by mouth. 1200 calcium- 1000 units D3 acetaminophen (TYLENOL) 500 mg tablet Take 500 mg by mouth every 6 hours as needed. multivitamin ORAL tablet Take 1 tablet by mouth once daily. aspirin 81 mg ORAL Chew Take one(1) tablet daily. Current Facility-Administered Medications on File Prior to Visit Medication perflutren lipid microspheres 1.3 mL in NaCl (PF) 0.9% 10 mL injection (DEFINITY) sodium chloride 0.9 % (flush) 10 mL (BD POSIFLUSH) perflutren lipid microspheres 1.3 mL in NaCl (PF) 0.9% 10 mL injection (DEFINITY) sodium chloride 0.9 % (flush) 10 mL (BD POSIFLUSH) Social History Social History Tobacco Use Smoking status: Former Packs/day: 0.50 Years: 10.00 Additional pack years: 0.00 Total pack years: 5.00 Types: Cigarettes Quit date: 08/04/1988 Years since quittin.8 Smokeless tobacco: Never Tobacco comments: quit 32 years ago Vaping Use Vaping Use: Never used Substance Use Topics Alcohol use: No Drug use: No Review of Symptoms REVIEW OF SYSTEMS See HPI EXAM: BP 112/80 Pulse 74 Temp 36.6 C (97.9 F) Resp 16 Wt 72.3 kg (159 lb 6.4 oz) LMP 09/29/2008 SpO2 98% BMI 26.94 kg/m General Appearance: Well appearing, alert, in no acute distress, well-hydrated, well nourished.. Skin: Skin color, texture, turgor normal, no suspicious rashes or lesions. Lungs: Lungs clear to auscultation. No wheezing, rhonchi, rales.. Heart: RRR without murmur, gallop, or rubs. No ectopy. Abdomen: Normal abdominal exam, Abdomen soft, non-tender. Bowel sounds normal. No masses, organomegaly, Negative CVA tenderness. Extremities: No deformities, edema, skin discoloration, clubbing or cyanosis. Good capillary refill. . Musculoskeletal: No joint swelling, deformity, or tenderness. No TTP over posterior chest wall Health Maintenance List RSV Vaccine(1 - 1-dose 60+ series) Never done Mammogram Screening due on 10/08/2023 Annual PCP Team Chronic Disease Visit due on 05/01/2024 BP Controlled (<130/80) due on 05/01/2024 Pap Testing due on 09/10/2024 HPV Testing due on 09/10/2024 Pneumococcal Vaccine(3 - PPSV23 or PCV20) due on 04/19/2026 Diabetes Screening due on 05/01/2026 DTaP,Tdap,Td Vaccine(3 - Td or Tdap) due on 03/26/2027 Lipid Screening due on 04/16/2028 Colorectal Cancer Screening due on 05/04/2028 Influenza Vaccine Completed Hepatitis C Screening Completed Shingrix Vaccine Completed Covid-19 Vaccine Completed HIV Screening Discontinued Data reviewed Component Latest Ref Rng & Units 06/18/2023 GLUCOSE UA (POCT) Negative mg/dL Negative BILIRUBIN UA (POCT) Negative Negative KETONE UA (POCT) Negative mg/dL Negative SPECIFIC GRAVITY UA (POCT) 1.005 - 1.030 1.010 HEMOGLOBIN/BLOOD UA (POCT) Negative Negative PH UA (POCT) 4.5 - 8.0 6.0 PROTEIN UA (POCT) Negative mg/dL Negative UROBILINOGEN UA (POCT) Normal E.U./dL 0.2 NITRITE UA (POCT) Negative Negative LEUKOCYTES UA (POCT) Negative Negative COLOR UA (POCT) Yellow CLARITY UA (POCT) Clear ASSESSMENT/PLAN: 1. Acute left flank pain - ICD9: 789.09, 338.19, ICD10: R10.9 (primary diagnosis) Normal exam and UA today. Pain has resolved. Will obtain US to evaluate for possible kidney stone and hydronephrosis. Discussed gentle hydration with history of CHF. Red flags for re-assessment reviewed with patient in detail. - CBC + DIFF - COMP METABOLIC PANEL - NT PRO BNP - US KIDNEY/BLADDER 2. Urinary urgency - ICD9: 788.63, ICD10: R39.15 See above. 3. Weight gain - ICD9: 783.1, ICD10: R63.5 No evidence of fluid overload on exam. Continue diuretics. Discussed low sodium diet and obtain labs as ordered. F/u with cardiology as recommended. - CBC + DIFF - COMP METABOLIC PANEL - NT PRO BNP Chip Hernandez MD documented in this encounter [facility] 05-26-2023 Miscellaneous Notes Pt notified. Ok advise her to stay with the omeprazole once a day for now. Spoke with patient and she indicated that she has been taking omeprazole started at twice a day and then the pain went away so you discussed and she reduced to one tablet daily. Patient doesn't know if this is stress related. She said in the past 18 months she has been under a lot of stress. health issues. She had to put her mother and aunt in a long-term some cleaning out house and selling etc. Her son was suicidal but he is getting help Her daughter got this weekend. She indicated that she is back into counseling herself. She said today she has not noticed pain. Kylah Razo MA Let patient know the swallowing study only showed a hiatal hernia which are common and most of the time do not require any surgical Tx. More people have it than what is diagnosed. Id also showed some acid reflux and this could be contributing the food sticking sensation she notes at times. See if willing to try Omeprazole 20 mg a day for several months to see if resolves. If so we could then consider switching to something like pepcid to see if we can keep it from returning. Scan on 05/22/2023 10:08 AM by Provider, ExternalCASSI: Miscellaneous Procedures Ordered by PCP. Kylah Razo MA documented in this encounter [facility] 05-26-2023 Miscellaneous Notes Phone call placed to pt today to discuss results. Cindy Snider Ma documented in this encounter [facility] 05-19-2023 History of Present illness Narrative When pt arrived for her visit today, she reported that her original pair of custom foot orthotics from 2018 are working very well and providing relief, but need refurbished. She is also requesting a duplicate pair in addition to the refurbishment of her original pair. Therefore a re-assessment is not necessary today. An order for a duplicate pair was placed. When this pair arrives, pt will be contacted and scheduled to pick these up. When she picks up her duplicate pair she will also drop off her old pair so that it can be refurbished. Pt was pleased with this plan. No charge for time. Favio Keith PT documented in this encounter [facility] 05-01-2023 History of Present illness Narrative Chief Complaint Patient presents with: Physical HPI Chris Ricardo is a 63 year old female who presents here today for Physical. Patient with hx of Arrhythmogenic right ventricular cardiomyopathy, depression with anxiety, hyperlipidemia, insomnia, CHF osteopenia as well as those reviewed and addressed below and in ROS. Patient does taken Lasix daily not as needed for leg swelling. Patient has noticed her balance has been off for about 2-3 months. No falls. Notes this mainly when she stands she stagers especially getting out of bed at night to go to the bathroom, and does not sit on the edge of her bed first. Walking 4 miles a day. Lost mother yesterday. Son has been dealing with some PTSD related to her service. Patient sees Dr. Ornelas - Podiatry Patient sees Dr. Alcala Cardiovascular Patient sees Dr. Pagan OB Past medical history, appointments, medications, allergies reviewed. Previous Medical History PAST MEDICAL HISTORY Diagnosis Date Abnormal mole AK (actinic keratosis) 10/17/2020 Bee sting allergy 04/05/2020 Benign neoplasm of colon 04/16/2010 Tubular adenoma 04/16/12 Cataracts, bilateral Chronic constipation 06/13/2022 Chronic left shoulder pain 05/28/2018 Compound nevus 11/27/2020 Abd LLQ removed 11/2020 Congestive heart failure (HCC) 10/09/[address] Alcala: stage 2 Constipation Depression with anxiety 07/09/2017 Situational, Managed by Counseling. Diffuse cystic mastopathy Essential hypertension Family history of breast cancer 07/04/2016 Family history of malignant neoplasm of breast 05/07/2007 2 maternal aunts History of COVID-19 03/25/202201/2022 Insomnia, unspecified rare Left shoulder pain 03/11/2011 Low testosterone level in female 2010 Mixed hyperlipidemia 2006 was on simvastatin, was able to come off med. Nonrheumatic tricuspid valve regurgitation 01/31/2022 Osteopenia ++FHx osteoporosis Peroneal tendinitis of left lower extremity 08/27/2017 Personal history of colonic polyps 04/21/2013 tubular adenoma. 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 Tucker and Dr. Alcala: Cardiomyopathy. Had cardiac arrest, has a pace maker/defibulator. Is limited to what exercising she can do. Plantar fasciitis of left foot 08/27/2017 Plantar fasciitis of right foot 07/18/2016 Presence of combination internal cardiac defibrillator (ICD) and pacemaker 01/14/2017 Ptosis, left eyelid benign PTSD (post-traumatic stress disorder) 08/13/2018 Unspecified closed fracture of ankle 2000 Ankle fracture left [place], [place] Urge incontinence Previous Surgical History PAST SURGICAL HISTORY Procedure Laterality Date APPENDECTOMY 1971 [place], [place] BLEPHAROPLASTY, UPPER EYELID Left 2017 BREAST BIOPSY 2006 left breast ([facility]) CARDIAC CATH 01/05/2017 normal COLONOSCOPY 04/27/2013 normal, repeat in 5 yrs d/t pers hx polyps and poss fam hx gi malignancy COLONOSCOPY 05/04/2018 repeat 10 yrs, Dr. Hatfield COLSC FLX W/RMVL OF TUMOR POLYP LESION SNARE TQ 04/16/2010 tubular adenoma at 70cm DILATION & CURETTAGE DX&/THER NONOBSTETRIC 09/2008 Dilation & curettage, Uterine Ablation with Novasure LEAD,PACEMAKER/DEFIB COMBO 01/06/2017 NOVASURE 09/2008 PRK Bilateral 01/2002 in [place] RADIOFREQUENCY ABLATION 01/03/2017 TONSILLECTOMY PRIMARY/SECONDARY <AGE 12 1970 [place]illectomy [place], [place] Family History FAMILY HISTORY Problem Relation Age of Onset Hypertension Mother dx age 30's Headache Mother Osteoporosis Mother Cataract Mother Lipids Mother Dementia Mother Alzheimer's Disease Father first symptoms around 70 Diabetes Father late 70's Hypertension Father Lipids Father Arthritis Father Cataract Father other (Abdominal Aortic Aneurysm) Maternal Grandmother Diabetes Paternal Grandmother Cancer Paternal Grandfather unknown Skin Cancer Daughter Breast Cancer Maternal Aunt x2 other (Abdominal Aortic Aneurysm) Maternal Aunt x2 Osteoporosis Maternal Aunt Osteoporosis Maternal Aunt Osteoporosis Maternal Aunt Osteoporosis Maternal Aunt other (Abdominal Aortic Aneurysm) Maternal Uncle Osteoporosis Maternal Uncle Osteoporosis Maternal Uncle Osteoporosis Maternal Uncle Osteoporosis Maternal Uncle Colon Cancer Other none other (cousin of blood clot; had dm, af and etoh) Other Patient Allergies ALLERGIES Allergen Reactions Bee Sting Swelling Current Medications Current Outpatient Medications on File Prior to Visit Medication Sig atorvastatin (LIPITOR) 10 mg tablet Take 1 tablet by mouth daily at bedtime. For cholesterol. metoprolol succinate ER (TOPROL XL) 25 mg 24 hr tablet Take 1.5 tablets by mouth once daily. omeprazole (PRILOSEC) 20 mg capsule Take 1 capsule by mouth twice daily. 1/2 hr before meal. L. acidophilus/Bifid. animalis (PROBIOTIC) 5 billion cell cpSP Take 1 capsule by mouth once daily. furosemide (LASIX) 40 mg tablet Take 1 tablet by mouth once daily as needed (leg swelling). EPINEPHrine (AUVI-Q) 0.3 mg/0.3 mL auto-injector Inject 0.3 mL intramuscularly as needed. glucosamine/chondr barrera A sod (OSTEO BI-FLEX ORAL) Take by mouth. CALCIUM-VITAMIN D3 ORAL Take by mouth. 1200 calcium- 1000 units D3 acetaminophen (TYLENOL) 500 mg tablet Take 500 mg by mouth every 6 hours as needed. multivitamin ORAL tablet Take 1 tablet by mouth once daily. aspirin 81 mg ORAL Chew Take one(1) tablet daily. Current Facility-Administered Medications on File Prior to Visit Medication perflutren lipid microspheres 1.3 mL in NaCl (PF) 0.9% 10 mL injection (DEFINITY) sodium chloride 0.9 % (flush) 10 mL (BD POSIFLUSH) perflutren lipid microspheres 1.3 mL in NaCl (PF) 0.9% 10 mL injection (DEFINITY) sodium chloride 0.9 % (flush) 10 mL (BD POSIFLUSH) perflutren lipid microspheres 1.3 mL in NaCl (PF) 0.9% 10 mL injection (DEFINITY) sodium chloride 0.9 % (flush) 10 mL (BD POSIFLUSH) Social History Social History Tobacco Use Smoking status: Former Packs/day: 0.50 Years: 10.00 Additional pack years: 0.00 Total pack years: 5.00 Types: Cigarettes Quit date: 08/04/1988 Years since quittin.7 Smokeless tobacco: Never Tobacco comments: quit 32 years ago Vaping Use Vaping Use: Never used Substance Use Topics Alcohol use: No Drug use: No Review of Symptoms REVIEW OF SYSTEMS GENERAL: No unintentional weight loss, malaise or fevers HEENT: Negative for frequent or significant headaches, No changes in hearing or vision, no nose bleeds or other nasal problems. Has her clear nasal drainage with the weather. NECK: Negative for lumps, goiter, pain and significant neck swelling RESPIRATORY: Negative for cough, hemoptysis, increased wheezing, COPD, dyspnea or shortness of breath CARDIOVASCULAR: Negative for chest pain, leg swelling, hypertension, CHF or palpitations GI: No nausea, vomiting, or diarrhea, No heartburn or reflux symptoms, and no blood. Has noted occasionally solids such as bread getting stuck. : No history of dysuria, frequency or blood MUSCULOSKELETAL: Negative for joint pain or swelling, back pain or muscle pain SKIN: Negative for lesions, rash, and itching, scaly skin on chest. Slightly itching PSYCH: has restarted counseling. HEMATOLOGY/LYMPHOLOGY: Negative for prolonged bleeding, bruising easily or swollen nodes ENDOCRINE: Negative for cold or polyuria, polydipsia and goiter. Gets hot easier. NEURO: No history of headaches, syncope, paralysis, seizures or tremors EXAM: BP 108/70 (BP Site: Right Arm, BP Position: Sitting, BP Cuff Size: Regular Adult) Pulse 64 Resp 16 Ht 163.8 cm (5' 4.5) Wt 69.9 kg (154 lb) LMP 09/29/2008 BMI 26.03 kg/m Last 5 Encounter Wt Readings: Date: Wt: 05/01/2023 69.9 kg (154 lb) 01/20/2023 72.6 kg (160 lb) 11/12/2022 70.8 kg (156 lb) 11/08/2022 71.7 kg (158 lb) 10/09/2022 69.4 kg (153 lb) General Appearance: Well appearing, alert, in no acute distress, well-hydrated, well nourished.. Skin: Skin color, texture, turgor normal, no suspicious rashes or lesions. Head: Normocephalic, no masses, lesions, tenderness or abnormalities. Eyes: Anicteric sclera. Pupils are equally round and reactive to light. Extraocular movements are intact. . Ears: External ears, TM's normal, canals clear. Nose/Sinuses: Nares normal, septum midline, mucosa normal, no drainage or sinus tenderness. Oropharynx: Lips, mucosa, and tongue normal, teeth and gums normal, oropharynx normal. Neck: Supple, no adenopathy; thyroid symmetric, normal size, no bruits. Lungs: Lungs clear to auscultation. No wheezing, rhonchi, rales.. Heart: RRR without murmur, gallop, or rubs. No ectopy. Abdomen: Normal abdominal exam, Abdomen soft, non-tender. Bowel sounds normal. No masses, organomegaly. Extremities: No deformities, edema, skin discoloration, Good capillary refill. . Musculoskeletal: Muscular strength intact, No joint swelling, deformity, or tenderness. Peripheral Pulses: Normal. Neurologic: Gait normal. Reflexes normal and symmetric. Sensation to light touch and crainal nerves 2-12 intact.. Health Maintenance List Influenza Vaccine(1) due on 04/04/2023 Mammogram Screening due on 10/08/2023 Annual PCP Team Chronic Disease Visit due on 01/21/2024 BP Controlled (<130/80) due on 01/21/2024 Pap Testing due on 09/10/2024 HPV Testing due on 09/10/2024 Diabetes Screening due on 04/16/2026 Pneumococcal Vaccine(3 - PPSV23 or PCV20) due on 04/19/2026 DTaP,Tdap,Td Vaccine(3 - Td or Tdap) due on 03/26/2027 Lipid Screening due on 04/16/2028 Colorectal Cancer Screening due on 05/04/2028 Hepatitis C Screening Completed Shingrix Vaccine Completed Covid-19 Vaccine Completed HIV Screening Discontinued Data reviewed Component Latest Ref Rng & Units 05/23/2022 10/03/2022 04/16/2023 Protein, Total 6.3 - 8.0 g/dL 7.3 6.6 6.7 Albumin 3.9 - 4.9 g/dL 4.5 4.2 4.3 Calcium 8.5 - 10.2 mg/dL 10.2 9.4 9.8 Bilirubin, Total 0.2 - 1.3 mg/dL 0.3 0.4 0.3 Alkaline Phosphatase 34 - 123 U/L 83 79 82 AST 13 - 35 U/L 27 34 23 ALT 7 - 38 U/L 22 34 19 Glucose 74 - 99 mg/dL 77 67 (L) 120 (H) BUN 7 - 21 mg/dL 20 19 19 Creatinine 0.58 - 0.96 mg/dL 0.97 (H) 0.90 0.91 Sodium 136 - 144 mmol/L 140 142 140 Potassium 3.7 - 5.1 mmol/L 5.0 3.7 4.7 Chloride 97 - 105 mmol/L 101 103 103 CO2 22 - 30 mmol/L 28 31 (H) 28 Anion Gap 9 - 18 mmol/L 11 8 (L) 9 eGFR >=60 mL/min/1.73m 66 72 71 Color Yellow Light Yellow Clarity Clear Clear Glucose, Urine Trace, Negative Negative Bilirubin, Urine Negative Negative Ketones, Urine Trace, Negative Negative Specific [place], Ur 1.005 - 1.030 1.013 Hemoglobin/Blood,Ur Negative, Trace Negative pH, Urine 5.0 - 8.0 6.0 Protein, Urine Trace, Negative Negative Urobilinogen Negative Negative Nitrites Negative Negative Leukest Negative, 25 Patti/uL Negative WBC, Urine 0-5 /HPF 0-5 /HPF RBC, Urine 0-3 /HPF 0-3 /HPF Total Cholesterol, Nonfasting <200 mg/dL 188 163 151 Triglycerides, Nonfasting <150 mg/dL 118 120 100 HDL Cholesterol, Nonfasting >39 mg/dL 54 48 47 LDL Cholesterol, Nonfasting <100 mg/dL 110 (H) 91 84 Non HDL Cholesterol, Nonfasting <130 mg/dL 134 (H) 115 104 VLDL Cholesterol, Nonfasting <30 mg/dL 24 24 20 Total Chol/HDL Ratio, Nonfasting <5.10 mg/dL 3.48 3.40 3.21 LDL/HDL Ratio, Nonfasting <2.54 mg/dL 2.04 1.90 1.79 Magnesium 1.7 - 2.3 mg/dL 2.1 Vitamin B12 232 - 1,245 pg/mL 855 Component Latest Ref Rng & Units 05/01/2023 Hemoglobin A1C (POCT) 4.2 - 5.6 % 5.4 A/P ASSESSMENT/PLAN: 1. Well adult exam - ICD9: V70.0, ICD10: Z00.00 (primary diagnosis) - Counseled on healthy diet and regular exercise - Calcium intake with supplements or by diet of 1000 mg/day for under 50, 4799-1947 mg/day for 50+ - Discussed need and benefit for weight loss. BMI 26.03 kg/(m^2) - Patient was counseled [id number] by myself (the billing provider) for the following immunizations and vaccine components, including side effects: Influenza. Patient consents for immunization and understands risks and benefits. A VIS sheet on each immunization was given to the patient. - Follow up for annual exam in one year 2. Mixed hyperlipidemia - ICD9: 272.2, ICD10: E78.2 - Controlled - Continue current medications - Counseled on healthy diet and regular exercise 3. Depression with anxiety - ICD9: 300.4, ICD10: F41.8 - patient doing counseling. 4. PTSD (post-traumatic stress disorder) - ICD9: 309.81, ICD10: F43.10 - as per #3 5. 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 Sinus node dysfunction (HCC) - ICD9: 427.81, ICD10: I49.5 - as per #5 7. Nonrheumatic tricuspid valve regurgitation - ICD9: 424.2, ICD10: I36.1 - as per #5 8. Congestive heart failure, unspecified HF chronicity, unspecified heart failure type (HCC) - ICD9: 428.0, ICD10: I50.9 - no clinical issues. - as per #5 9. Chronic constipation - ICD9: 564.00, ICD10: K59.09 - no current issues. 10. Urge incontinence - ICD9: 788.31, ICD10: N39.41 - stable 11. Elevated blood sugar - ICD9: 790.29, ICD10: R73.9 - HEMOGLOBIN A1C (POC) was 5.4% 12. Encounter for immunization - ICD9: V03.89, ICD10: Z23 - INFLUENZA VACCINE, AGE 6 MO - 64 YR, QUADRIVALENT (AFLURIA, FLULAVAL, FLUZONE): given 13. Balance problem - ICD9: 781.99, ICD10: R26.89 - feel this maybe due to getting up out of bed too quick. Advised sitting on the edge for 30-60 seconds before standing. 14. Heat intolerance - ICD9: 780.99, ICD10: R68.89 Check - TSH BLD - T4 FREE/FREE THYROX 15. Encounter for gynecological examination - ICD9: V72.31, ICD10: Z01.419 - CONSULT TO COLLEGE SC[employer]ING COORDINATOR 16. Esophageal dysphagia - ICD9: 787.29, ICD10: R13.19 - will try to get a swallowing sturdy set up. F/u 6 months routine check lipid and CMP prior Alton Eisenberg MD documented in this encounter [facility] 03-28-2023 History of Present illness Narrative FOLLOW UP PODIATRIC OFFICE VISIT Chief Complaint: This 63 year old who presents for follow up:b/l flatfoot Patient presents to clinic for evaluation of b/l feet. Does have history of flatfoot for which she has been treated with orthotics. She stats she is in need for new orthotics. PAIN EVALUATION No data found in the last 1 encounters. Hemoglobin A1C Date Value Ref Range Status 10/02/2021 5.3 4.3 - 5.6 % Final Comment: [place] [employer] guidelines indicate that patients with HgbA1c in the range 5.7-6.4% are at increased risk for development of diabetes, and intervention by lifestyle modification may be beneficial. HgbA1c greater or equal to 6.5% is considered diagnostic of diabetes. PCP: Alton Eisenberg MD PAST MEDICAL HISTORY Diagnosis Date Abnormal mole AK (actinic keratosis) 10/17/2020 Bee sting allergy 04/05/2020 Benign neoplasm of colon 04/16/2010 Tubular adenoma 04/16/12 Cataracts, bilateral Chronic constipation 06/13/2022 Chronic left shoulder pain 05/28/2018 Compound nevus 11/27/2020 Abd LLQ removed 11/2020 Congestive heart failure (HCC) 10/09/[address] Alcala: stage 2 Constipation Depression with anxiety 07/09/2017 Situational, Managed by Counseling. Diffuse cystic mastopathy Essential hypertension Family history of breast cancer 07/04/2016 Family history of malignant neoplasm of breast 05/07/2007 2 maternal aunts History of COVID-19 03/25/202201/2022 Insomnia, unspecified rare Left shoulder pain 03/11/2011 Low testosterone level in female 2010 Mixed hyperlipidemia 2006 was on simvastatin, was able to come off med. Nonrheumatic tricuspid valve regurgitation 01/31/2022 Osteopenia ++FHx osteoporosis Peroneal tendinitis of left lower extremity 08/27/2017 Personal history of colonic polyps 04/21/2013 tubular adenoma. 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 Tucker and Dr. Alcala: Cardiomyopathy. Had cardiac arrest, has a pace maker/defibulator. Is limited to what exercising she can do. Plantar fasciitis of left foot 08/27/2017 Plantar fasciitis of right foot 07/18/2016 Presence of combination internal cardiac defibrillator (ICD) and pacemaker 01/14/2017 Ptosis, left eyelid benign PTSD (post-traumatic stress disorder) 08/13/2018 Unspecified closed fracture of ankle 2000 Ankle fracture left [place], [place] Urge incontinence Current Outpatient Medications Medication Sig atorvastatin (LIPITOR) 10 mg tablet Take 1 tablet by mouth daily at bedtime. For cholesterol. metoprolol succinate ER (TOPROL XL) 25 mg 24 hr tablet Take 1.5 tablets by mouth once daily. omeprazole (PRILOSEC) 20 mg capsule Take 1 capsule by mouth twice daily. 1/2 hr before meal. L. acidophilus/Bifid. animalis (PROBIOTIC) 5 billion cell cpSP Take 1 capsule by mouth once daily. furosemide (LASIX) 40 mg tablet Take 1 tablet by mouth once daily as needed (leg swelling). EPINEPHrine (AUVI-Q) 0.3 mg/0.3 mL auto-injector Inject 0.3 mL intramuscularly as needed. glucosamine/chondr barrera A sod (OSTEO BI-FLEX ORAL) Take by mouth. CALCIUM-VITAMIN D3 ORAL Take by mouth. 1200 calcium- 1000 units D3 acetaminophen (TYLENOL) 500 mg tablet Take 500 mg by mouth every 6 hours as needed. multivitamin ORAL tablet Take 1 tablet by mouth once daily. aspirin 81 mg ORAL Chew Take one(1) tablet daily. Current Facility-Administered Medications Medication Dose Route Frequency perflutren lipid microspheres 1.3 mL in NaCl (PF) 0.9% 10 mL injection (DEFINITY) INTRAVENOUS DIRECTED PRN sodium chloride 0.9 % (flush) 10 mL (BD POSIFLUSH) 10 mL INTRAVENOUS DIRECTED PRN perflutren lipid microspheres 1.3 mL in NaCl (PF) 0.9% 10 mL injection (DEFINITY) INTRAVENOUS DIRECTED PRN sodium chloride 0.9 % (flush) 10 mL (BD POSIFLUSH) 10 mL INTRAVENOUS DIRECTED PRN perflutren lipid microspheres 1.3 mL in NaCl (PF) 0.9% 10 mL injection (DEFINITY) INTRAVENOUS DIRECTED PRN sodium chloride 0.9 % (flush) 10 mL (BD POSIFLUSH) 10 mL INTRAVENOUS DIRECTED PRN ALLERGIES Allergen Reactions Bee Sting Swelling PAST SURGICAL HISTORY Procedure Laterality Date APPENDECTOMY 1971 [place], [place] BLEPHAROPLASTY, UPPER EYELID Left 2017 BREAST BIOPSY 2006 left breast ([facility]) CARDIAC CATH 01/05/2017 normal COLONOSCOPY 04/27/2013 normal, repeat in 5 yrs d/t pers hx polyps and poss fam hx gi malignancy COLONOSCOPY 05/04/2018 repeat 10 yrs, Dr. Hatfield COLSC FLX W/RMVL OF TUMOR POLYP LESION SNARE TQ 04/16/2010 tubular adenoma at 70cm DILATION & CURETTAGE DX&/THER NONOBSTETRIC 09/2008 Dilation & curettage, Uterine Ablation with Novasure LEAD,PACEMAKER/DEFIB COMBO 01/06/2017 NOVASURE 09/2008 PRK Bilateral 01/2002 in [place] RADIOFREQUENCY ABLATION 01/03/2017 TONSILLECTOMY PRIMARY/SECONDARY <AGE 12 1970 Tonsillectomy [place], [place] Physical Exam: OBJECTIVE: Constitutional: Pt is a well developed 63 year old female who is alert, oriented, cooperative and in no apparent distress. Eyes: Following during examination. No redness or drainage. Respiratory: RR normal and nonlabored. Even breathing. No evidence of distress. Psychology: Patient is engaged during conversation. Normal affect and mood. Does not appear depressed or anxious. NVSI unchanged from previous visit. Dermatological: Nails 1-5 b/l are normal. Webspaces clean and dry 1-4 b/l. Skin appears well hydrated and supple. good color, texture, turgor. No open lesions present. Callus present to left 5th metatarsal and albino of multiple toes Musculoskeletal/Orthopaedic: Patient has no pain to palpation of b/l lower extremity Flatfoot is noted to b/l lower extremity ASSESSMENT: (M76.829) Posterior tibial tendon dysfunction (primary encounter diagnosis) (M79.671, M79.672) Foot pain, bilateral (M21.41, M21.42) Pes planus of both feet (L84) Callus of foot PLAN: Discussed flatfoot. Recommend custom orthotics. Custom orhtotics are necessary due to flatfoot and will be more accommodative than an over the counter insert Callus reduced with dremmel Follow-up yves Ornelas DPM Patient presents with: Left Foot - New, Pain Right Foot - New, Pain Patient presents for bilateral foot pain. States that she mostly just needs new custom orthotics. Patient received the orthotics from the [facility] previously. States that she has some calloses to feet where inserts have been rubbing. documented in this encounter [facility] 03-10-2023 Miscellaneous Notes Consult to podiatry placed. documented in this encounter [facility] 03-10-2023 Miscellaneous Notes Patient has been identified by name and date of : Yes Requested Prescriptions Pending Prescriptions Disp Refills atorvastatin (LIPITOR) 10 mg tablet 90 tablet 1 Sig: Take 1 tablet by mouth daily at bedtime. For cholesterol. RX INSTRUCTIONS: Patient aware RX will be sent to pharmacy. No need to notify patient. Kylah Razo MA Blaire 03/2022 wellness Nov 04/2022 Last refill: 08/2022 documented in this encounter [facility] 02-05-2023 Miscellaneous Notes Spoke to patient she is already re-scheduled for an in clinic check on 02/12/23. Patient called in to reschedule remote device check . Patient can be reached at [phone] documented in this encounter [facility] 02-03-2023 Miscellaneous Notes I called the patient and discussed her home monitoring. She will be added on to the device clinic for 02/12/23. In regards to her device toning during her walk, difficult to narrow down the cause. Could be her cell phone?? Not sure. Will have to further assess at her in-clinic device check on 02/12/23. Please contact patient regarding [employer] message. documented in this encounter [facility] 02-03-2023 Miscellaneous Notes Attempted to return the patient's call. No answer, left a voice mail. Patient would like to change 02/11 remote device check to in clinic visit. Patient can be reached at [phone] documented in this encounter [facility] 01-20-2023 History of Present illness Narrative Chief Complaint Patient presents with: Pain (Shoulder Pain) HPI Chris Ricardo is a 62 year old female who presents here today for an acute visit. Pt scheduled today for shoulder pain . Patient was pushing herself up in bed night to read when she felt a pull in the back part of the left shoulder near the edge of the scapula. On Friday the pain was a 7/10 and ROM was decreased with rotating her head to the left, forward flexion of the left arm and posterior extension.. She has been taking tylenol with improvement in the pain and ROM. No pain into the arm or numbness. No noticeable weakness. Has not done any icing. Past medical history, appointments, medications, allergies reviewed. Previous Medical History PAST MEDICAL HISTORY Diagnosis Date Abnormal mole AK (actinic keratosis) 10/17/2020 Bee sting allergy 04/05/2020 Benign neoplasm of colon 04/16/2010 Tubular adenoma 04/16/12 Cataracts, bilateral Chronic constipation 06/13/2022 Chronic left shoulder pain 05/28/2018 Compound nevus 11/27/2020 Abd LLQ removed 11/2020 Congestive heart failure (HCC) 10/09/[address] Alcala: stage 2 Constipation Depression with anxiety 07/09/2017 Situational, Managed by Counseling. Diffuse cystic mastopathy Essential hypertension Family history of breast cancer 07/04/2016 Family history of malignant neoplasm of breast 05/07/2007 2 maternal aunts History of COVID-19 03/25/202201/2022 Insomnia, unspecified rare Left shoulder pain 03/11/2011 Low testosterone level in female 2010 Mixed hyperlipidemia 2006 was on simvastatin, was able to come off med. Nonrheumatic tricuspid valve regurgitation 01/31/2022 Osteopenia ++FHx osteoporosis Peroneal tendinitis of left lower extremity 08/27/2017 Personal history of colonic polyps 04/21/2013 tubular adenoma. 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 Tucker and Dr. Alcala: Cardiomyopathy. Had cardiac arrest, has a pace maker/defibulator. Is limited to what exercising she can do. Plantar fasciitis of left foot 08/27/2017 Plantar fasciitis of right foot 07/18/2016 Presence of combination internal cardiac defibrillator (ICD) and pacemaker 01/14/2017 Ptosis, left eyelid benign PTSD (post-traumatic stress disorder) 08/13/2018 Unspecified closed fracture of ankle 2001 Ankle fracture left [place], [place] Urge incontinence Previous Surgical History PAST SURGICAL HISTORY Procedure Laterality Date APPENDECTOMY 1971 [place], [place] BLEPHAROPLASTY, UPPER EYELID Left 2017 BREAST BIOPSY 2006 left breast ([facility]ma) CARDIAC CATH 01/05/2017 normal COLONOSCOPY 04/27/2013 normal, repeat in 5 yrs d/t pers hx polyps and poss fam hx gi malignancy COLONOSCOPY 05/04/2018 repeat 10 yrs, Dr. Hatfield COLSC FLX W/RMVL OF TUMOR POLYP LESION SNARE TQ 04/16/2010 tubular adenoma at 70cm DILATION & CURETTAGE DX&/THER NONOBSTETRIC 09/2008 Dilation & curettage, Uterine Ablation with Novasure LEAD,PACEMAKER/DEFIB COMBO 01/06/2017 NOVASURE 09/2008 PRK Bilateral 01/2002 in [place] RADIOFREQUENCY ABLATION 01/03/2017 TONSILLECTOMY PRIMARY/SECONDARY <AGE 12 1970 [place]illectomy [place] Family History FAMILY HISTORY Problem Relation Age of Onset Hypertension Mother dx age 30's Headache Mother Osteoporosis Mother Cataract Mother Lipids Mother Dementia Mother Alzheimer's Disease Father first symptoms around 70 Diabetes Father late 70's Hypertension Father Lipids Father Arthritis Father Cataract Father other (Abdominal Aortic Aneurysm) Maternal Grandmother Diabetes Paternal Grandmother Cancer Paternal Grandfather unknown Skin Cancer Daughter Breast Cancer Maternal Aunt x2 other (Abdominal Aortic Aneurysm) Maternal Aunt x2 Osteoporosis Maternal Aunt Osteoporosis Maternal Aunt Osteoporosis Maternal Aunt Osteoporosis Maternal Aunt other (Abdominal Aortic Aneurysm) Maternal Uncle Osteoporosis Maternal Uncle Osteoporosis Maternal Uncle Osteoporosis Maternal Uncle Osteoporosis Maternal Uncle Colon Cancer Other none other (cousin of blood clot; had dm, af and etoh) Other Patient Allergies ALLERGIES Allergen Reactions Bee Sting Swelling Current Medications Current Outpatient Medications on File Prior to Visit Medication Sig metoprolol succinate ER (TOPROL XL) 50 mg 24 hr tablet Take 1 tablet by mouth once daily. omeprazole (PRILOSEC) 20 mg capsule Take 1 capsule by mouth twice daily. 1/2 hr before meal. atorvastatin (LIPITOR) 10 mg tablet Take 1 tablet by mouth daily at bedtime. For cholesterol. L. acidophilus/Bifid. animalis (PROBIOTIC) 5 billion cell cpSP Take 1 capsule by mouth once daily. furosemide (LASIX) 40 mg tablet Take 1 tablet by mouth once daily as needed (leg swelling). EPINEPHrine (AUVI-Q) 0.3 mg/0.3 mL auto-injector Inject 0.3 mL intramuscularly as needed. glucosamine/chondr barrera A sod (OSTEO BI-FLEX ORAL) Take by mouth. CALCIUM-VITAMIN D3 ORAL Take by mouth. 1200 calcium- 1000 units D3 acetaminophen (TYLENOL) 500 mg tablet Take 500 mg by mouth every 6 hours as needed. multivitamin ORAL tablet Take 1 tablet by mouth once daily. aspirin 81 mg ORAL Chew Take one(1) tablet daily. Current Facility-Administered Medications on File Prior to Visit Medication perflutren lipid microspheres 1.3 mL in NaCl (PF) 0.9% 10 mL injection (DEFINITY) sodium chloride 0.9 % (flush) 10 mL (BD POSIFLUSH) perflutren lipid microspheres 1.3 mL in NaCl (PF) 0.9% 10 mL injection (DEFINITY) sodium chloride 0.9 % (flush) 10 mL (BD POSIFLUSH) perflutren lipid microspheres 1.3 mL in NaCl (PF) 0.9% 10 mL injection (DEFINITY) sodium chloride 0.9 % (flush) 10 mL (BD POSIFLUSH) perflutren lipid microspheres 1.3 mL in NaCl (PF) 0.9% 10 mL injection (DEFINITY) sodium chloride 0.9 % (flush) 10 mL (BD POSIFLUSH) Social History Social History Tobacco Use Smoking status: Former Packs/day: 0.50 Years: 10.00 Pack years: 5.00 Types: Cigarettes Quit date: 08/04/1988 Years since quittin.4 Smokeless tobacco: Never Tobacco comments: quit 32 years ago Vaping Use Vaping Use: Never used Substance Use Topics Alcohol use: No Drug use: No ROS: See HPI EXAM: BP 112/68 Pulse 72 Resp 14 Wt 72.6 kg (160 lb) LMP 09/29/2008 BMI 26.83 kg/m General Appearance: Well appearing, alert, in no acute distress, well-hydrated, well nourished.. Musculoskeletal: No joint swelling, deformity, or tenderness. There is full ROM of the left shoulder with negative Near's, Hawken's and empty can testing. She can turn her head tot the left to about 60-70 degrees where on Friday it was only to about 35-45 degrees. There is no reproducible pain to palpation of the muscles of the shoulder or those on the medial edge of the left scapula. No tenderness to palpation of the shoulder bones or clavicle. Strength testing was normal and symmetrical in the upper extremities. Pushing against the wall produced no scapular winging or pain. Peripheral Pulses: Normal. Neurologic: light touch sensation was intact and symmetrical in the upper extremities. . Health Maintenance List MAMMOGRAM due on 10/08/2023 ANNUAL PCP TEAM CHRONIC DISEASE VISIT due on 11/09/2023 BP CONTROLLED (<130/80) due on 11/13/2023 PAP TESTING due on 09/10/2024 HPV TESTING due on 09/10/2024 DIABETES SCREEN due on 10/03/2025 PNEUMOCOCCAL(3 - PPSV23 if available, else PCV20) due on 04/19/2026 DTAP,TDAP,TD(3 - Td or Tdap) due on 03/26/2027 LIPID SCREEN due on 10/04/2027 COLORECTAL CANCER SCREENING due on 05/04/2028 INFLUENZA Completed HEPATITIS C SCREENING Completed SHINGRIX VACCINE Completed COVID-19 VACCINE Completed HIV SCREENING Discontinued Data reviewed A/P ASSESSMENT/PLAN: 1. Muscle strain of left scapular region, initial encounter - ICD9: 840.9, ICD10: S46.912A - discussed continued use of tylenol. Offered a muscle relaxer before bed and declined at this time. - discussed HEP. Do not feel x-rays would be of any benefit at this time. - if not improving would proceed wit PHYSICAL THERAPY. Alton Eisenberg MD documented in this encounter [facility] 01-03-2023 History of Present illness Narrative Images from the original note were not included. Heart, Vascular & Thoracic [facility] Department of Cardiovascular Medicine VIRTUAL VIDEO VISIT ESTABLISHED OUTPATIENT VISIT SERVICE DATE: 01/03/2023 Patient: Chris Ricardo SERVICE TIME: 7:54 AM : 1960 This is a virtual video visit. It required patient-provider interaction for the medical decision making as documented below. Chris Ricardo has consented to this video encounter. I have communicated my name and active licensure. The patient's identity and physical location were verified at the time of this visit. Either the patient or their legal employee representative has been informed of the risks and benefits of -- and alternatives to -- treatment through a remote evaluation and consents to proceed with the evaluation remotely. Chris Ricardo is a 62 year old female seen for heart failure. CHIEF COMPLAINT Established follow-up HISTORY OF PRESENT ILLNESS Ms. Ricardo is 62 year old female with history of ARVC (PKP2 mutation), right ventricular dilation, moderate tricuspid regurgitation, VT s/p ICD and PTSD who presents as an established visit in heart failure clinic. Patient was last seen on 08/02/22. She remains active and walking 3 miles a day. Denies any ICD discharges. Notes normal exertional capacity. Denies any orthopnea, PND, lightheadedness/dizziness, or syncope. She notes that she gained about 5lbs and notes occasional leg swelling. In terms of past medical history: Patient notes that he cardiac history started in 1993. She had a work-up in the at that time due to recurrent lightheadedness/dizziness. She was found to have sinus bradycardia at that time. Stress test, echocardiogram, nuclear testing was normal. In 2000 as part of the she had traveled to [place] and had an episode of stress and went to see the doctor at that time and was found to have PACs. In 2016, her daughter was about to graduate from college and she was training for a hiking trip in [place]. The night before she left she woke up with chest pressure and nausea/vomiting. She called 911 and went [place]. She was found to be in sustained VT with LBBB. She underwent comprehensive testing including a heart cath and cardiac MRI. There was no significant CAD but an area of akinesis on her MRI concerning for ARVC. She underwent and EP procedure 01/03/2017 and the were able to modify an area of scar of the inferior, free wall and inferoseptum of the RV. Though the VT was not eliminated, it was modified. Reportedly, the VT was not pace terminable prior to but was after the procedure. She had a dual chamber ICD implant 01/06/2017 MDT MRI and has done well from an arrhythmia perspective on beta el. She was originally on Toprol XL 50mg but had lethargy. But she was able to tolerate Toprol XL 25mg daily. Genetic testing + PKP2. She notes feeling well and but generally is able to stay active but does have to take an occasional nap. She follows with Dr. Tucker for her VT. She has never had an ICD shocks. She has had swelling in her thighs and lower abdomen. She notes this is correlated to when she goes out to eat and has a lot of salt. Denies any orthopnea, PND, lightheadedness/dizziness, or syncope. PAST MEDICAL HISTORY Diagnosis Date Abnormal mole AK (actinic keratosis) 10/17/2020 Bee sting allergy 04/05/2020 Benign neoplasm of colon 04/16/2010 Tubular adenoma 04/16/12 Cataracts, bilateral Chronic constipation 06/13/2022 Chronic left shoulder pain 05/28/2018 Compound nevus 11/27/2020 Abd LLQ removed 11/2020 Congestive heart failure (HCC) 10/09/[address] Alcala: stage 2 Constipation Depression with anxiety 07/09/2017 Situational, Managed by Counseling. Diffuse cystic mastopathy Essential hypertension Family history of breast cancer 07/04/2016 Family history of malignant neoplasm of breast 05/07/2007 2 maternal aunts History of COVID-19 03/25/202201/2022 Insomnia, unspecified rare Left shoulder pain 03/11/2011 Low testosterone level in female 2010 Mixed hyperlipidemia 2006 was on simvastatin, was able to come off med. Nonrheumatic tricuspid valve regurgitation 01/31/2022 Osteopenia ++FHx osteoporosis Peroneal tendinitis of left lower extremity 08/27/2017 Personal history of colonic polyps 04/21/2013 tubular adenoma. 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 Tucker [address] Dr. Alcala: Cardiomyopathy. Had cardiac arrest, has a pace maker/defibulator. Is limited to what exercising she can do. Plantar fasciitis of left foot 08/27/2017 Plantar fasciitis of right foot 07/18/2016 Presence of combination internal cardiac defibrillator (ICD) and pacemaker 01/14/2017 Ptosis, left eyelid benign PTSD (post-traumatic stress disorder) 08/13/2018 Unspecified closed fracture of ankle 2000 Ankle fracture left [place], [place] Urge incontinence PAST SURGICAL HISTORY Procedure Laterality Date APPENDECTOMY 1971 [place], [place] BLEPHAROPLASTY, UPPER EYELID Left 2017 BREAST BIOPSY 2006 left breast (summa) CARDIAC CATH 01/05/2017 normal COLONOSCOPY 04/27/2013 normal, repeat in 5 yrs d/t pers hx polyps and poss fam hx gi malignancy COLONOSCOPY 05/04/2018 repeat 10 yrs, Dr. Hatfield COLSC FLX W/RMVL OF TUMOR POLYP LESION SNARE TQ 04/16/2010 tubular adenoma at 70cm DILATION & CURETTAGE DX&/THER NONOBSTETRIC 09/2008 Dilation & curettage, Uterine Ablation with Novasure LEAD,PACEMAKER/DEFIB COMBO 01/06/2017 NOVASURE 09/2008 PRK Bilateral 01/2002 in [place] RADIOFREQUENCY ABLATION 01/03/2017 TONSILLECTOMY PRIMARY/SECONDARY <AGE 12 1970 [place] [place], [place] FAMILY HISTORY Problem Relation Age of Onset Hypertension Mother dx age 30's Headache Mother Osteoporosis Mother Cataract Mother Lipids Mother Dementia Mother Alzheimer's Disease Father first symptoms around 70 Diabetes Father late 70's Hypertension Father Lipids Father Arthritis Father Cataract Father other (Abdominal Aortic Aneurysm) Maternal Grandmother Diabetes Paternal Grandmother Cancer Paternal Grandfather unknown Skin Cancer Daughter Breast Cancer Maternal Aunt x2 other (Abdominal Aortic Aneurysm) Maternal Aunt x2 Osteoporosis Maternal Aunt Osteoporosis Maternal Aunt Osteoporosis Maternal Aunt Osteoporosis Maternal Aunt other (Abdominal Aortic Aneurysm) Maternal Uncle Osteoporosis Maternal Uncle Osteoporosis Maternal Uncle Osteoporosis Maternal Uncle Osteoporosis Maternal Uncle Colon Cancer Other none other (cousin of blood clot; had dm, af and etoh) Other Social History Tobacco Use Smoking status: Former Packs/day: 0.50 Years: 10.00 Pack years: 5.00 Types: Cigarettes Quit date: 08/04/1988 Years since quittin.4 Smokeless tobacco: Never Tobacco comments: quit 32 years ago Vaping Use Vaping Use: Never used Substance Use Topics Alcohol use: No Drug use: No ALLERGIES Allergen Reactions Bee Sting Swelling CURRENT MEDICATIONS ofloxacin (FLOXIN) 0.3 % otic solution^Use 5 Drops in the left ear twice daily.^Disp: 5 mL^Rfl: 0 omeprazole (PRILOSEC) 20 mg capsule^Take 1 capsule by mouth twice daily. 1/2 hr before meal.^Disp: 180 capsule^Rfl: 1 atorvastatin (LIPITOR) 10 mg tablet^Take 1 tablet by mouth daily at bedtime. For cholesterol.^Disp: 90 tablet^Rfl: 1 L. acidophilus/Bifid. animalis (PROBIOTIC) 5 billion cell cpSP^Take 1 capsule by mouth once daily.^Disp: ^Rfl: furosemide (LASIX) 40 mg tablet^Take 1 tablet by mouth once daily as needed (leg swelling).^Disp: 90 tablet^Rfl: 3 metoprolol succinate ER (TOPROL XL) 25 mg 24 hr tablet^Take 1.5 tablets by mouth once daily.^Disp: 135 tablet^Rfl: 3 EPINEPHrine (AUVI-Q) 0.3 mg/0.3 mL auto-injector^Inject 0.3 mL intramuscularly as needed.^Disp: 2 Each^Rfl: 1 glucosamine/chondr barrera A sod (OSTEO BI-FLEX ORAL)^Take by mouth.^Disp: ^Rfl: CALCIUM-VITAMIN D3 ORAL^Take by mouth. 1200 calcium- 1000 units D3^Disp: ^Rfl: EPINEPHrine (EPIPEN) 0.3 mg/0.3 mL auto-injector^Use as directed after bee sting if you develop shortness of breath, chest tightness of difficulty swallowing.^Disp: 2 Each^Rfl: 1 acetaminophen (TYLENOL) 500 mg tablet^Take 500 mg by mouth every 6 hours as needed.^Disp: ^Rfl: multivitamin ORAL tablet^Take 1 tablet by mouth once daily.^Disp: ^Rfl: 0 aspirin 81 mg ORAL Chew^Take one(1) tablet daily.^Disp: ^Rfl: 0 REVIEW OF SYSTEMS: Answers submitted by the patient for this visit: Review of Systems Heart Failure (Submitted on 12/31/2022) Fever : No Night Sweats: No Recent Unintentional Weight Change: Yes Vision Disturbance: No Hearing Loss: No A Cough: Yes Difficulty Breathing?: Yes Chest Pain: No Leg Swelling: Yes Skipping or irregular heartbeats?: Yes Feel like passing out?: No Black Tarry Stools: No Nausea: No Diarrhea: No Swelling in your abdomen?: Yes Fill up quickly when you eat?: No Difficulty Urinating?: No Joint Pain or Stiffness: Yes Muscle Aches: No A Rash: No Dizziness: Yes Headaches: No PHYSICAL EXAMINATION: VIDEO EXAM: (if completed, performed via video enabled technology) Trace lower extremity edema. PATIENT ENTERED QUESTIONNAIRE SCORES PHQ-9 12/31/2022 07/29/2022 01/24/2022 Score 3 5 4 PROMIS Global Health - (T-Scores - the mean of general population = 50. Five points is a clinically meaningful difference.) 12/31/2022 10/02/2022 06/12/2022 Physical T-Score 50.8 47.7 50.8 Mental T-Score 50.8 59 59 Last EKG Result Conclusion ECG COMPLETE Collected: 11/12/2022 12:35 PM (Final result) Impression: ATRIAL-PACED RHYTHM LOW VOLTAGE QRS, CONSIDER PULMONARY DISEASE, PERICARDIAL EFFUSION, OR NORMAL VARIANT NONSPECIFIC T WAVE ABNORMALITY ABNORMAL ECG Confirmed by JOHANN SWEENEY, [facility] ([id number]) on 11/14/2022 4:10:45 PM Last ECHO Result Conclusion ECHO Collected: 08/02/2022 9:02 AM (Final result) Impression: CONCLUSIONS: - Exam indication: Arrhythmogenic right ventricular cardiomyopathy - The left ventricle is normal in size. Left ventricular systolic function is normal. EF = 56 5% (2D biplane) - The right ventricle is dilated. Right ventricular systolic function is mildly decreased. RVFW: -18.8%. RV4CSL: -17.1% - There is moderate (2+ - 3+) tricuspid valve regurgitation. - AV morphology not well visualized in short axis images on today's study. - Exam was compared with the prior echocardiographic exam performed on 12/04/2021. No major change. * * * Final * * * Glucose (mg/dL) Date Value 10/03/2022 67 10/04/2020 94 Potassium (mmol/L) Date Value 10/03/2022 3.7 10/04/2020 4.5 Sodium (mmol/L) Date Value 10/03/2022 142 10/04/2020 141 Chloride (mmol/L) Date Value 10/03/2022 103 10/04/2020 102 CO2 (mmol/L) Date Value 10/03/2022 31 10/04/2020 30 Creatinine (mg/dL) Date Value 10/03/2022 0.90 10/04/2020 0.90 BUN (mg/dL) Date Value 10/03/2022 19 10/04/2020 21 Anion Gap (mmol/L) Date Value 10/03/2022 8 10/04/2020 9 Calcium (mg/dL) Date Value 10/04/2020 9.5 Calcium, Total (mg/dL) Date Value 10/03/2022 9.4 Hemoglobin (g/dL) Date Value 05/23/2022 14.9 07/26/2019 13.1 Hematocrit (%) Date Value 05/23/2022 47.2 07/26/2019 42.9 WBC (k/uL) Date Value 05/23/2022 5.02 07/26/2019 4.42 NT Pro BNP Date Value Ref Range Status 07/19/2022 137 (H) <125 pg/mL Final Cardiac MRI 01/06/2017: FINDINGS: The right ventricle is abnormally dilated. On the 4-chamber view at end diastole, the right ventricle measures 5.3 cm in cavitary diameter, while the left ventricle measures 4.7 cm. There is also straightening of the interventricular septum. Right ventricle appears mildly hypertrabeculated, although the free wall is suspected to be somewhat thinned. The dedicated ARVD protocol was not performed, and T1-weighted images were therefore not obtained to evaluate for fatty infiltration. On the short-axis cine images, there are several foci of bulging of the right ventricular free wall during systole, and there is also abnormal hypokinesis of the right ventricle with slight irregularity of the wall shown on the 4-chamber cine images. On delayed postcontrast images, there is suspected to be multifocal abnormal enhancement of the right ventricular myocardium, although there is artifact, limiting this determination. Right ventricular end-diastolic volume normalized to patient surface area of 1.79 meters squared is 134 milliliters/meter squared. Based on endocardial contours, the right ventricular ejection fraction is probably underestimated but appears to be significantly less than 40%. The left ventricle demonstrates normal myocardial thickness without left ventricular segmental wall motion abnormalities. Based on endocardial contours, the left ventricular ejection fraction is 56% with an end-diastolic volume of 157 mL (normal 52-141), and systolic volume of 69 mL (normal 13-51), and stroke volume 88 mL (normal 33-97). No definite abnormal left ventricular myocardial enhancement. There is a minimal amount of pericardial fluid. Small pleural effusions are present, right greater than left. IMPRESSION: Abnormal right ventricular dilatation with multifocal dyskinesis and decreased systolic function, as well as suspected foci of abnormal right ventricular enhancing fibrosis. MRI findings are suggestive of arrhythmogenic right ventricular cardiomyopathy/dysplasia and fulfill one major criterion according to 2010 task force criteria. LHC 01/05/2017: LMCA within normal limits LMCA within normal limits No angiographic evidence of plaque in the LMCA, LAD, Circumflex or RCA systems. LAD within normal limits CIRC within normal limits RCA within normal limits TTE 01/04/2017: Left Ventricle: The left ventricular chamber size is normal. There is no left ventricular hypertrophy observed. Global left ventricular wall motion and contractility are within normal limits. There is normal left ventricular systolic function. The estimated ejection fraction is 55-60%. The ejection fraction is calculated to be 57% using the Method of Disks. No regional wall motion abnormalities are evident. Left Atrium: The left atrial chamber size is normal. A patent foramen ovale is not demonstrated by color Doppler. Right Ventricle: The right ventricular chamber size and systolic function are within normal limits. The right ventricular cavity size is normal. The right ventricular global systolic function is normal. Right Atrium: The right atrial cavity size is normal. Aortic Valve: The aortic valve is trileaflet. Mild aortic leaflet calcification is visualized. The aortic valve leaflets appear mildly sclerotic. There is no hemodynamically significant stenosis. There is a trace of aortic regurgitation. Mitral Valve: The mitral valve leaflets appear normal. There is mild mitral annular calcification. There is no evidence of mitral valve prolapse. There is no evidence of mitral stenosis. There is trivial physiological regurgitation of the mitral valve. Tricuspid Valve: The tricuspid valve leaflets are normal. There is mild tricuspid regurgitation. No pulmonary hypertension is noted. Pulmonic Valve: The pulmonic valve appears grossly normal in structure and function. Pericardium: There is no pericardial effusion. Aorta: The aortic root is normal in diameter. Venous: There is less than 50% respiratory change in the inferior vena cava dimension. ASSESSMENT: Ms. Ricardo is 62 year old female with history of ARVC (PKP2 mutation), right ventricular dilation, moderate tricuspid regurgitation, VT s/p ICD and PTSD who presents for an established visit in heart failure clinic. NYHA Functional Class: II Stage: C heart failure Target weight: 155lbs 1. ARVC 2. Right ventricular dilation 3. Tricuspid regurgitation 4. VT 5. PTSD Heart Failure specific medications (list current, note updates or changes, note prior intolerance): BB: Increased Toprol XL from 37.5mg daily to 50mg daily (Did not tolerate 50mg daily but this was 6 years prior) ACEI/ARB/ARNI: none MRA: none SGLT2: none Diuretic: Lasix 40mg daily Digoxin: none Vasodilators: none Anti-arrhythmics: none Ivabradine: none Other anti-HTN: none PLAN (Active Outpatient Problems): 1. ARVC -NYHA functional class II, stage C, LVEF 59% -Etiology of heart failure is likely ARVC given prior MRI findings in 2016 and PKP2 mutation noted on genetic testing 03/2017. -Echocardiogram 12/04/2021 shows moderate RV dysfunction and moderate tricuspid regurgitation, compared to cardiac MRI in 2017 RV function has declined but unclear about duration of RV dysfunciton -TTE 08/02/22 shows unchanged moderate TR and RV function. No need for intervention at this time. -Continue Lasix 40mg daily PRN - Increased Toprol XL from 37.5mg daily to 50mg daily (Did not tolerate 50mg daily but this was 6 years prior) -No indication for ARNI/MRA/SLGT2 given normal LV function at this time. -No indication for advanced therapies at this time, but will continue to monitor RV function and signs of LV function going forward given known ARVC. Follow-up in 6 months with labs, ECG, ICD check and echocardiogram. I personally spent 35 minutes in total time involved in the management and care of this patient. Dave Alcala MD [facility] Section Of Heart Failure and Cardiac Transplant Medicine Heart and Vascular [facility] Desk [id number] [place] [address] documented in this encounter [facility] 11-12-2022 History of Present illness Narrative Images from the original note were not included. Heart and Vascular [facility] Soniya Das Department of Cardiovascular Medicine SECTION OF CARDIAC PACING and ELECTROPHYSIOLOGY OUTPATIENT VISIT DATE November 12, 2022 OUTPATIENT VISIT TYPE ESTABLISHED PRIMARY CARE PHYSICIAN: Alton Eisenberg [id number] [place] [address] CHIEF COMPLAINT: ARVC HISTORY OF PRESENT ILLNESS: Ms. Ricardo is a 62 year old female who presents today for follow-up visit for ARVC and ICD for her yearly follow up visit. She has done well with metoprolol form an EP perspective. In October she had episodes of palpitations in the evening lasted about 3 days. She had her device check which shows stable function no VT or Afib episodes, though the symptoms she described are suggestive of PVCs which she is known to have. Echo 08/02/22 CONCLUSIONS: - Exam indication: Arrhythmogenic right ventricular cardiomyopathy - The left ventricle is normal in size. Left ventricular systolic function is normal. EF = 56 5% (2D biplane) - The right ventricle is dilated. Right ventricular systolic function is mildly decreased. RVFW: -18.8%. RV4CSL: -17.1% - There is moderate (2+ - 3+) tricuspid valve regurgitation. - AV morphology not well visualized in short axis images on today's study. - Exam was compared with the prior echocardiographic exam performed on 12/04/2021. No major change. Stress Test 04/02/2019 CONCLUSIONS: 1. SPECT Perfusion Study: Normal. 2. There is no scintigraphic evidence for inducible ischemia. 3. No evidence of scarred myocardium. 4. Good functional capacity for age and gender. 5. Left ventricle is normal in size. The left ventricle systolic function is normal. 6. This is a low risk scan. Gated Stress FBP LVEF % 78 cMRI 01/06/2017 IMPRESSION: Review of outside MRI from 01/06/2017: Enlarged and globally hypokinetic right ventricle with ejection fraction of 36%. Regional RV wall motion abnormalities and multifocal areas of delayed enhancement. Echo 01/04/2017 Findings Procedure Info: The study quality is good. Reason For Study: Abnormal EKG. Left Ventricle: The left ventricular chamber size is normal. There is no left ventricular hypertrophy observed. Global left ventricular wall motion and contractility are within normal limits. There is normal left ventricular systolic function. The estimated ejection fraction is 55-60%. The ejection fraction is calculated to be 57% using the Method of Disks. No regional wall motion abnormalities are evident. Left Atrium: The left atrial chamber size is normal. A patent foramen ovale is not demonstrated by color Doppler. Right Ventricle: The right ventricular chamber size and systolic function are within normal limits. The right ventricular cavity size is normal. The right ventricular global systolic function is normal. Right Atrium: The right atrial cavity size is normal. Aortic Valve: The aortic valve is trileaflet. Mild aortic leaflet calcification is visualized. The aortic valve leaflets appear mildly sclerotic. There is no hemodynamically significant stenosis. There is a trace of aortic regurgitation. Mitral Valve: The mitral valve leaflets appear normal. There is mild mitral annular calcification. There is no evidence of mitral valve prolapse. There is no evidence of mitral stenosis. There is trivial physiological regurgitation of the mitral valve. Tricuspid Valve: The tricuspid valve leaflets are normal. There is mild tricuspid regurgitation. No pulmonary hypertension is noted. Pulmonic Valve: The pulmonic valve appears grossly normal in structure and function. Pericardium: There is no pericardial effusion. Aorta: The aortic root is normal in diameter. Venous: There is less than 50% respiratory change in the inferior vena cava dimension. Nursing Intake: She has had no therapies from her device. She did experience some brief episodes palpitations around October 24 and . She has some shortness of breath on exertion. She denies chest pain, orthopnea, PND, lightheadedness or syncope. She did have a few days of hypotension after a stressful period out of state but it resolved on its own. PAST CARDIAC HISTORY: [facility], [place], ICD PAST MEDICAL HISTORY Diagnosis Date Abnormal mole AK (actinic keratosis) 10/17/2020 Bee sting allergy 04/05/2020 Benign neoplasm of colon 04/16/2010 Tubular adenoma 04/16/12 Cataracts, bilateral Chronic constipation 06/13/2022 Chronic left shoulder pain 05/28/2018 Compound nevus 11/27/2020 Abd LLQ removed 11/2020 Congestive heart failure (HCC) 10/09/[address] Alcala: stage 2 Constipation Depression with anxiety 07/09/2017 Situational, Managed by Counseling. Diffuse cystic mastopathy Essential hypertension Family history of breast cancer 07/04/2016 Family history of malignant neoplasm of breast 05/07/2007 2 maternal aunts History of COVID-19 03/25/202201/2022 Insomnia, unspecified rare Left shoulder pain 03/11/2011 Low testosterone level in female 2010 Mixed hyperlipidemia 2006 was on simvastatin, was able to come off med. Nonrheumatic tricuspid valve regurgitation 01/31/2022 Osteopenia ++FHx osteoporosis Peroneal tendinitis of left lower extremity 08/27/2017 Personal history of colonic polyps 04/21/2013 tubular adenoma. 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 Tucker and Dr. Alcala: Cardiomyopathy. Had cardiac arrest, has a pace maker/defibulator. Is limited to what exercising she can do. Plantar fasciitis of left foot 08/27/2017 Plantar fasciitis of right foot 07/18/2016 Presence of combination internal cardiac defibrillator (ICD) and pacemaker 01/14/2017 Ptosis, left eyelid benign PTSD (post-traumatic stress disorder) 08/13/2018 Unspecified closed fracture of ankle 2001 Ankle fracture left [place], [place] Urge incontinence PAST SURGICAL HISTORY Procedure Laterality Date APPENDECTOMY 1971 [place], [place] BLEPHAROPLASTY, UPPER EYELID Left 2016 BREAST BIOPSY 2006 left breast ([facility]) CARDIAC CATH 01/05/2017 normal COLONOSCOPY 04/27/2013 normal, repeat in 5 yrs d/t pers hx polyps and poss fam hx gi malignancy COLONOSCOPY 05/04/2018 repeat 10 yrs, Dr. Hatfield COLSC FLX W/RMVL OF TUMOR POLYP LESION SNARE TQ 04/16/2010 tubular adenoma at 70cm DILATION & CURETTAGE DX&/THER NONOBSTETRIC 09/2008 Dilation & curettage, Uterine Ablation with Novasure LEAD,PACEMAKER/DEFIB COMBO 01/06/2017 NOVASURE 09/2008 PRK Bilateral 01/2002 in [place] RADIOFREQUENCY ABLATION 01/03/2017 TONSILLECTOMY PRIMARY/SECONDARY <AGE 12 1970 [place]illectomy [place], [place] SOCIAL HISTORY Social History Tobacco Use Smoking status: Former Packs/day: 0.50 Years: 10.00 Pack years: 5.00 Types: Cigarettes Quit date: 08/04/1988 Years since quittin.2 Smokeless tobacco: Never Tobacco comments: quit 32 years ago Vaping Use Vaping Use: Never used Substance Use Topics Alcohol use: No Drug use: No FAMILY HISTORY Problem Relation Age of Onset Hypertension Mother dx age 30's Headache Mother Osteoporosis Mother Cataract Mother Lipids Mother Dementia Mother Alzheimer's Disease Father first symptoms around 70 Diabetes Father late 70's Hypertension Father Lipids Father Arthritis Father Cataract Father other (Abdominal Aortic Aneurysm) Maternal Grandmother Diabetes Paternal Grandmother Cancer Paternal Grandfather unknown Skin Cancer Daughter Breast Cancer Maternal Aunt x2 other (Abdominal Aortic Aneurysm) Maternal Aunt x2 Osteoporosis Maternal Aunt Osteoporosis Maternal Aunt Osteoporosis Maternal Aunt Osteoporosis Maternal Aunt other (Abdominal Aortic Aneurysm) Maternal Uncle Osteoporosis Maternal Uncle Osteoporosis Maternal Uncle Osteoporosis Maternal Uncle Osteoporosis Maternal Uncle Colon Cancer Other none other (cousin of blood clot; had dm, af and etoh) Other ALLERGIES: ALLERGIES Allergen Reactions Bee Sting Swelling MEDICATIONS: ofloxacin (FLOXIN) 0.3 % otic solution^Use 5 Drops in the left ear twice daily.^Disp: 5 mL^Rfl: 0 omeprazole (PRILOSEC) 20 mg capsule^Take 1 capsule by mouth twice daily. 1/2 hr before meal.^Disp: 180 capsule^Rfl: 1 atorvastatin (LIPITOR) 10 mg tablet^Take 1 tablet by mouth daily at bedtime. For cholesterol.^Disp: 90 tablet^Rfl: 1 L. acidophilus/Bifid. animalis (PROBIOTIC) 5 billion cell cpSP^Take 1 capsule by mouth once daily.^Disp: ^Rfl: furosemide (LASIX) 40 mg tablet^Take 1 tablet by mouth once daily as needed (leg swelling).^Disp: 90 tablet^Rfl: 3 metoprolol succinate ER (TOPROL XL) 25 mg 24 hr tablet^Take 1.5 tablets by mouth once daily.^Disp: 135 tablet^Rfl: 3 EPINEPHrine (AUVI-Q) 0.3 mg/0.3 mL auto-injector^Inject 0.3 mL intramuscularly as needed.^Disp: 2 Each^Rfl: 1 glucosamine/chondr barrera A sod (OSTEO BI-FLEX ORAL)^Take by mouth.^Disp: ^Rfl: CALCIUM-VITAMIN D3 ORAL^Take by mouth. 1200 calcium- 1000 units D3^Disp: ^Rfl: EPINEPHrine (EPIPEN) 0.3 mg/0.3 mL auto-injector^Use as directed after bee sting if you develop shortness of breath, chest tightness of difficulty swallowing.^Disp: 2 Each^Rfl: 1 acetaminophen (TYLENOL) 500 mg tablet^Take 500 mg by mouth every 6 hours as needed.^Disp: ^Rfl: multivitamin ORAL tablet^Take 1 tablet by mouth once daily.^Disp: ^Rfl: 0 aspirin 81 mg ORAL Chew^Take one(1) tablet daily.^Disp: ^Rfl: 0 PHYSICAL EXAMINATION: BP 117/73 Pulse 80 Ht 164.5 cm (5' 4.75) Wt 70.8 kg (156 lb) LMP 09/29/2008 BMI 26.16 kg/m General: Well appearing, in no acute distress. Skin: No clubbing, no cyanosis. Eyes: Extra ocular movements intact Neck: No jugular venous distention, no carotid bruits, carotids have a normal upstroke, no palpable thyromegaly. Lungs: Clear to auscultation bilaterally, no wheezing or rhonchi. Heart: Regular rhythm, PMI not displaced, S1, S2 normal, no S3, no S4, no heaves, no rub and no murmur. Abdomen: Soft, nontender, bowel sounds normal, no palpable organomegaly, no bruits. Extremities: No peripheral edema . Grade 2/4 distal pulses bilaterally. Neuro: Oriented to person, place and time, alert, cooperative, gait coordinated. Device site well healed CARDIOVASCULAR MEDICINE TESTING: Electrocardiogram: atrial paced rhythm I have personally reviewed the Electrocardiogram. Assessment IMPRESSION: 1. Arrhythmogenic right ventricular cardiomyopathy (HCC) - ICD9: 425.4, ICD10: I42.8 (primary diagnosis) 2. Sinus node dysfunction (HCC) - ICD9: 427.81, ICD10: I49.5 3. NSVT (nonsustained ventricular tachycardia) (HCC) - ICD9: 427.1, ICD10: I47.29 4. Presence of combination internal cardiac defibrillator (ICD) and pacemaker - ICD9: V45.02, ICD10: Z95.810 5. Hypertension, essential - ICD9: 401.9, ICD10: I10 6. History of sustained ventricular tachycardia - ICD9: V12.59, ICD10: Z86.79 PLAN AND RECOMMENDATIONS: We reviewed Chris's device check. We discussed that I suspect her palpitations are due to PVCs we discussed if they become more bothersome again we can have her wear a monitor to correlate with symptoms. We discussed we could increase her beta el though this may aggravate fatigue as she had been on higher doses in the past. I addressed her questions. Will see her back in a year or sooner as needed. CONTACT INFORMATION: Clarissa Tucker DO As a national referral center for Syncope and related conditions, seeing patients from across the country, we cannot provide work, FMLA, disability or other forms, or cardiac clearance. Please contact the patient's primary care physician or clinical steam tank operator for the documentation requested. We will provide the office notes from the patient's most recent visit if they have not already been received, and other tests or evaluations performed here can be made available upon request. documented in this encounter [facility] 11-08-2022 Miscellaneous Notes Addended by: CHANEL GARDNER on: 11/08/2022 01:31 PM Modules accepted: Orders documented in this encounter [facility] 11-08-2022 Instructions Chanel Gardner APRN.CNP - 11/08/2022 1:12 PM EDT Schedule with ENT No more use of qtips When showering place cotton ball with petroleum jelly in ear to avoid water entering ear canal. documented in this encounter [facility] 11-08-2022 History of Present illness Narrative Chief Complaint Patient presents with: Ear Problem HPI Chris Ricardo is a 62 year old female who presents here today for Above Complaints.. Patient presents for blood in left ear. Patient states that pain and blood started two days ago after using a q-tip multiple times to clean her ears. Patient reports blood is only noted on qtip, no passive drainage. Denies fever, recent illness, pain, drainage. Past medical history, appointments, medications, allergies reviewed. Previous Medical History PAST MEDICAL HISTORY Diagnosis Date Abnormal mole AK (actinic keratosis) 10/17/2020 Bee sting allergy 04/05/2020 Benign neoplasm of colon 04/16/2010 Tubular adenoma 04/16/12 Cataracts, bilateral Chronic constipation 06/13/2022 Chronic left shoulder pain 05/28/2018 Compound nevus 11/27/2020 Abd LLQ removed 11/2020 Congestive heart failure (HCC) 10/09/[address] Alcala: stage 2 Constipation Depression with anxiety 07/09/2017 Situational, Managed by Counseling. Diffuse cystic mastopathy Essential hypertension Family history of breast cancer 07/04/2016 Family history of malignant neoplasm of breast 05/07/2007 2 maternal aunts History of COVID-19 03/25/202201/2022 Insomnia, unspecified rare Left shoulder pain 03/11/2011 Low testosterone level in female 2010 Mixed hyperlipidemia 2006 was on simvastatin, was able to come off med. Nonrheumatic tricuspid valve regurgitation 01/31/2022 Osteopenia ++FHx osteoporosis Peroneal tendinitis of left lower extremity 08/27/2017 Personal history of colonic polyps 04/21/2013 tubular adenoma. 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 Tucker and Dr. Alcala: Cardiomyopathy. Had cardiac arrest, has a pace maker/defibulator. Is limited to what exercising she can do. Plantar fasciitis of left foot 08/27/2017 Plantar fasciitis of right foot 07/18/2016 Presence of combination internal cardiac defibrillator (ICD) and pacemaker 01/14/2017 Ptosis, left eyelid benign PTSD (post-traumatic stress disorder) 08/13/2018 Unspecified closed fracture of ankle 2000 Ankle fracture left [place], [place] Urge incontinence Previous Surgical History PAST SURGICAL HISTORY Procedure Laterality Date APPENDECTOMY 1970 [place], [place] BLEPHAROPLASTY, UPPER EYELID Left 2017 BREAST BIOPSY 2006 left breast ([facility]) CARDIAC CATH 01/05/2017 normal COLONOSCOPY 04/27/2013 normal, repeat in 5 yrs d/t pers hx polyps and poss fam hx gi malignancy COLONOSCOPY 05/04/2018 repeat 10 yrs, Dr. Hatfield COLSC FLX W/RMVL OF TUMOR POLYP LESION SNARE TQ 04/16/2010 tubular adenoma at 70cm DILATION & CURETTAGE DX&/THER NONOBSTETRIC 09/2008 Dilation & curettage, Uterine Ablation with Novasure LEAD,PACEMAKER/DEFIB COMBO 01/06/2017 NOVASURE 09/2008 PRK Bilateral 01/2002 in [place] RADIOFREQUENCY ABLATION 01/03/2017 TONSILLECTOMY PRIMARY/SECONDARY <AGE 12 1970 [place]illectomy [place], [place] Family History FAMILY HISTORY Problem Relation Age of Onset Hypertension Mother dx age 30's Headache Mother Osteoporosis Mother Cataract Mother Lipids Mother Dementia Mother Alzheimer's Disease Father first symptoms around 70 Diabetes Father late 70's Hypertension Father Lipids Father Arthritis Father Cataract Father other (Abdominal Aortic Aneurysm) Maternal Grandmother Diabetes Paternal Grandmother Cancer Paternal Grandfather unknown Skin Cancer Daughter Breast Cancer Maternal Aunt x2 other (Abdominal Aortic Aneurysm) Maternal Aunt x2 Osteoporosis Maternal Aunt Osteoporosis Maternal Aunt Osteoporosis Maternal Aunt Osteoporosis Maternal Aunt other (Abdominal Aortic Aneurysm) Maternal Uncle Osteoporosis Maternal Uncle Osteoporosis Maternal Uncle Osteoporosis Maternal Uncle Osteoporosis Maternal Uncle Colon Cancer Other none other (cousin of blood clot; had dm, af and etoh) Other Patient Allergies ALLERGIES Allergen Reactions Bee Sting Swelling Current Medications Current Outpatient Medications on File Prior to Visit Medication Sig omeprazole (PRILOSEC) 20 mg capsule Take 1 capsule by mouth twice daily. 1/2 hr before meal. atorvastatin (LIPITOR) 10 mg tablet Take 1 tablet by mouth daily at bedtime. For cholesterol. L. acidophilus/Bifid. animalis (PROBIOTIC) 5 billion cell cpSP Take 1 capsule by mouth once daily. furosemide (LASIX) 40 mg tablet Take 1 tablet by mouth once daily as needed (leg swelling). metoprolol succinate ER (TOPROL XL) 25 mg 24 hr tablet Take 1.5 tablets by mouth once daily. EPINEPHrine (AUVI-Q) 0.3 mg/0.3 mL auto-injector Inject 0.3 mL intramuscularly as needed. glucosamine/chondr barrera A sod (OSTEO BI-FLEX ORAL) Take by mouth. CALCIUM-VITAMIN D3 ORAL Take by mouth. 1200 calcium- 1000 units D3 EPINEPHrine (EPIPEN) 0.3 mg/0.3 mL auto-injector Use as directed after bee sting if you develop shortness of breath, chest tightness of difficulty swallowing. acetaminophen (TYLENOL) 500 mg tablet Take 500 mg by mouth every 6 hours as needed. multivitamin ORAL tablet Take 1 tablet by mouth once daily. aspirin 81 mg ORAL Chew Take one(1) tablet daily. Current Facility-Administered Medications on File Prior to Visit Medication perflutren lipid microspheres 1.3 mL in NaCl (PF) 0.9% 10 mL injection (DEFINITY) sodium chloride 0.9 % (flush) 10 mL (BD POSIFLUSH) perflutren lipid microspheres 1.3 mL in NaCl (PF) 0.9% 10 mL injection (DEFINITY) sodium chloride 0.9 % (flush) 10 mL (BD POSIFLUSH) perflutren lipid microspheres 1.3 mL in NaCl (PF) 0.9% 10 mL injection (DEFINITY) sodium chloride 0.9 % (flush) 10 mL (BD POSIFLUSH) Social History Social History Tobacco Use Smoking status: Former Packs/day: 0.50 Years: 10.00 Pack years: 5.00 Types: Cigarettes Quit date: 08/04/1988 Years since quittin.2 Smokeless tobacco: Never Tobacco comments: quit 32 years ago Vaping Use Vaping Use: Never used Substance Use Topics Alcohol use: No Drug use: No Review of Symptoms REVIEW OF SYSTEMS SEE HPI EXAM: BP 104/66 Pulse 86 Resp 14 Wt 71.7 kg (158 lb) LMP 09/29/2008 BMI 26.29 kg/m General Appearance: Well appearing, alert, in no acute distress, well-hydrated, well nourished.. Ears: Positive findings: L TM: erythematous and perforation . Health Maintenance List MAMMOGRAM due on 10/08/2023 ANNUAL PCP TEAM CHRONIC DISEASE VISIT due on 10/10/2023 BP CONTROLLED (<130/80) due on 10/10/2023 PAP TESTING due on 09/10/2024 HPV TESTING due on 09/10/2024 DIABETES SCREEN due on 10/03/2025 PNEUMOCOCCAL(3 - PPSV23 if available, else PCV20) due on 04/19/2026 DTAP,TDAP,TD(3 - Td or Tdap) due on 03/26/2027 LIPID SCREEN due on 10/04/2027 COLORECTAL CANCER SCREENING due on 05/04/2028 INFLUENZA Completed HEPATITIS C SCREENING Completed SHINGRIX VACCINE Completed COVID-19 VACCINE Completed HIV SCREENING Discontinued ASSESSMENT/PLAN: 1. Perforated tympanic membrane, left - ICD9: 384.20, ICD10: H72.92 -Consult ENT -Spoke with Dr. Islas who recommends treatment with Floxin otic drops twice daily and follow up in 3-4 weeks. Chanel Gardner APRN.[employer] documented in this encounter [facility] 10-09-2022 Instructions Alton Eisenberg MD - 10/09/2022 11:25 AM EST Please get labs and urine test done on or after 03/28/2023 prior to your next visit. documented in this encounter [facility] 10-09-2022 History of Present illness Narrative Chief Complaint Patient presents with: F/U 6 months HPI Chris Ricardo is a 62 year old female who presents here today for 6 month follow up. Patient has issues with constipation that has resolved but she is still having burning to the left of her navel. Notices it more so after eating especially lunch and dinner. Patient with hx of Arrhythmogenic right ventricular cardiomyopathy, depression with anxiety, hyperlipidemia, insomnia, CHF osteopenia as well as those reviewed and addressed below and in ROS. Since last being seen patient is doing much better in regards to the constipation. She was able to stop the Miralax and just doing the probiotic and a high fiber cereal. She still gets a sharp burning pain after eating and is not as painful after eating like it had been with the constipation. Seems to be worse after dinner and laying down at night. Still takes a Pepcid before going to bed. Has had some increased stress with her's husbands health recently but emotionally feels she has been doing ok. Past medical history, appointments, medications, allergies reviewed. Previous Medical History PAST MEDICAL HISTORY Diagnosis Date Abnormal mole AK (actinic keratosis) 10/17/2020 Arrhythmogenic right ventricular cardiomyopathy (HCC) 01/14/2017 Cardiomyopathy. Has a pace maker/defibulator. Is limited to what exercising she can do. Bee sting allergy 04/05/2020 Benign neoplasm of colon 04/16/2010 Tubular adenoma 04/16/12 Cataracts, bilateral Chronic left shoulder pain 05/28/2018 Compound nevus 11/27/2020 Abd LLQ removed 11/2020 Congestive heart failure (HCC) stage 2 Constipation Depression with anxiety 07/09/2017 Situational, Managed by Counseling. Diffuse cystic mastopathy Essential hypertension Family history of breast cancer 07/04/2016 Family history of malignant neoplasm of breast 05/07/2007 2 maternal aunts History of COVID-19 03/25/202201/2022 Insomnia, unspecified rare Left shoulder pain 03/11/2011 Low testosterone level in female 2010 Mixed hyperlipidemia 2006 was on simvastatin, was able to come off med. Nonrheumatic tricuspid valve regurgitation 01/31/2022 Osteopenia ++FHx osteoporosis Peroneal tendinitis of left lower extremity 08/27/2017 Personal history of colonic polyps 04/21/2013 tubular adenoma. Plantar fasciitis of left foot 08/27/2017 Plantar fasciitis of right foot 07/18/2016 Presence of combination internal cardiac defibrillator (ICD) and pacemaker 01/14/2017 Ptosis, left eyelid benign PTSD (post-traumatic stress disorder) 08/13/2018 Unspecified closed fracture of ankle 2001 Ankle fracture left [place], [place] Urge incontinence Previous Surgical History PAST SURGICAL HISTORY Procedure Laterality Date APPENDECTOMY 1971 [place], [place] BLEPHAROPLASTY, UPPER EYELID Left 2017 BREAST BIOPSY 2006 left breast ([facility]) CARDIAC CATH 01/05/2017 normal COLONOSCOPY 04/27/2013 normal, repeat in 5 yrs d/t pers hx polyps and poss fam hx gi malignancy COLONOSCOPY 05/04/2018 repeat 10 yrs, Dr. Hatfield COLSC FLX W/RMVL OF TUMOR POLYP LESION SNARE TQ 04/16/2010 tubular adenoma at 70cm DILATION & CURETTAGE DX&/THER NONOBSTETRIC 09/2008 Dilation & curettage, Uterine Ablation with Novasure LEAD,PACEMAKER/DEFIB COMBO 01/06/2017 NOVASURE 09/2008 PRK Bilateral 01/2002 in [place] RADIOFREQUENCY ABLATION 01/03/2017 TONSILLECTOMY PRIMARY/SECONDARY <AGE 12 1970 [place]illectomy [place], [place] Family History FAMILY HISTORY Problem Relation Age of Onset Hypertension Mother dx age 30's Headache Mother Osteoporosis Mother Cataract Mother Lipids Mother Dementia Mother Alzheimer's Disease Father first symptoms around 70 Diabetes Father late 70's Hypertension Father Lipids Father Arthritis Father Cataract Father other (Abdominal Aortic Aneurysm) Maternal Grandmother Diabetes Paternal Grandmother Cancer Paternal Grandfather unknown Skin Cancer Daughter Breast Cancer Maternal Aunt x2 other (Abdominal Aortic Aneurysm) Maternal Aunt x2 Osteoporosis Maternal Aunt Osteoporosis Maternal Aunt Osteoporosis Maternal Aunt Osteoporosis Maternal Aunt other (Abdominal Aortic Aneurysm) Maternal Uncle Osteoporosis Maternal Uncle Osteoporosis Maternal Uncle Osteoporosis Maternal Uncle Osteoporosis Maternal Uncle Colon Cancer Other none other (cousin of blood clot; had dm, af and etoh) Other Patient Allergies ALLERGIES Allergen Reactions Bee Sting Swelling Current Medications Current Outpatient Medications on File Prior to Visit Medication Sig atorvastatin (LIPITOR) 10 mg tablet Take 1 tablet by mouth daily at bedtime. For cholesterol. polyethylene glycol 3350 (MIRALAX, GLYCOLAX) 17 gram/dose powder Take 17 g by mouth once daily. Patient using 0.5 teaspoon daily. Dissolve dose in 4 - 8 ounces of liquid and take as directed. L. acidophilus/Bifid. animalis (PROBIOTIC) 5 billion cell cpSP Take 1 capsule by mouth once daily. peg 3350-Electrolytes (GOLYTELY) 236-22.74-6.74 -5.86 gram suspension Drink 1/3 jug for 3 days in a row (Patient not taking: Reported on 10/07/2022) furosemide (LASIX) 40 mg tablet Take 1 tablet by mouth once daily as needed (leg swelling). metoprolol succinate ER (TOPROL XL) 25 mg 24 hr tablet Take 1.5 tablets by mouth once daily. famotidine (PEPCID) 20 mg tablet Take 1 tablet by mouth at bedtime as needed. EPINEPHrine (AUVI-Q) 0.3 mg/0.3 mL auto-injector Inject 0.3 mL intramuscularly as needed. glucosamine/chondr barrera A sod (OSTEO BI-FLEX ORAL) Take by mouth. CALCIUM-VITAMIN D3 ORAL Take by mouth. 1200 calcium- 1000 units D3 EPINEPHrine (EPIPEN) 0.3 mg/0.3 mL auto-injector Use as directed after bee sting if you develop shortness of breath, chest tightness of difficulty swallowing. acetaminophen (TYLENOL) 500 mg tablet Take 500 mg by mouth every 6 hours as needed. multivitamin ORAL tablet Take 1 tablet by mouth once daily. aspirin 81 mg ORAL Chew Take one(1) tablet daily. Current Facility-Administered Medications on File Prior to Visit Medication perflutren lipid microspheres 1.3 mL in NaCl (PF) 0.9% 10 mL injection (DEFINITY) sodium chloride 0.9 % (flush) 10 mL (BD POSIFLUSH) perflutren lipid microspheres 1.3 mL in NaCl (PF) 0.9% 10 mL injection (DEFINITY) sodium chloride 0.9 % (flush) 10 mL (BD POSIFLUSH) perflutren lipid microspheres 1.3 mL in NaCl (PF) 0.9% 10 mL injection (DEFINITY) sodium chloride 0.9 % (flush) 10 mL (BD POSIFLUSH) Social History Social History Tobacco Use Smoking status: Former Packs/day: 0.50 Years: 10.00 Pack years: 5.00 Types: Cigarettes Quit date: 08/04/1988 Years since quittin.2 Smokeless tobacco: Never Tobacco comments: quit 32 years ago Vaping Use Vaping Use: Never used Substance Use Topics Alcohol use: No Drug use: No Review of Symptoms REVIEW OF SYSTEMS GENERAL: No weight loss, malaise or fevers NECK: Negative for lumps, goiter, pain and significant neck swelling RESPIRATORY: Negative for cough, hemoptysis, wheezing, COPD, dyspnea or shortness of breath CARDIOVASCULAR: Negative for chest pain, leg swelling, hypertension, CHF or palpitations GI: No nausea, vomiting, or diarrhea and See HPI PSYCH: See HPI ENDOCRINE: Negative for cold or heat intolerance, polyuria, polydipsia and goiter NEURO: No history of headaches, syncope, paralysis, seizures or tremors. EXAM: BP 106/72 (BP Site: Right Arm, BP Position: Sitting, BP Cuff Size: Regular Adult) Pulse 68 Resp 16 Wt 69.4 kg (153 lb) LMP 09/29/2008 BMI 25.46 kg/m Last 6 Encounter Wt Readings: Date: Wt: 10/09/2022 69.4 kg (153 lb) 10/07/2022 69.9 kg (154 lb) 08/13/2022 71.3 kg (157 lb 3.2 oz) 08/02/2022 70.3 kg (155 lb) 06/13/2022 70.3 kg (155 lb) 05/23/2022 69.4 kg (153 lb) General Appearance: Well appearing, alert, in no acute distress, well-hydrated, well nourished.. Neck: Supple, no adenopathy; thyroid symmetric, normal size, no bruits. Lungs: Lungs clear to auscultation. No wheezing, rhonchi, rales.. Heart: RRR without murmur, gallop, or rubs. No ectopy. Abdomen: Abdomen soft, with mild tenderness off to the left of the umbilicus. Bowel sounds normal. No masses, organomegaly. Extremities: No deformities, edema, skin discoloration, . Good capillary refill. . Musculoskeletal: Muscular strength intact. Peripheral Pulses: Normal. Neurologic: Gait normal. Sensation to light touch intact.. Health Maintenance List ANNUAL PCP TEAM CHRONIC DISEASE VISIT due on 06/13/2023 MAMMOGRAM due on 10/08/2023 BP CONTROLLED (<130/80) due on 10/08/2023 PAP TESTING due on 09/10/2024 HPV TESTING due on 09/10/2024 DIABETES SCREEN due on 10/03/2025 DTAP,TDAP,TD(3 - Td or Tdap) due on 03/26/2027 LIPID SCREEN due on 10/04/2027 COLORECTAL CANCER SCREENING due on 05/04/2028 INFLUENZA Completed HEPATITIS C SCREENING Completed SHINGRIX VACCINE Completed COVID-19 VACCINE Completed HIV SCREENING Discontinued Data reviewed Component Latest Ref Rng & Units 05/23/2022 07/19/2022 10/03/2022 Protein, Total 6.3 - 8.0 g/dL 7.3 6.9 6.6 Albumin 3.9 - 4.9 g/dL 4.5 4.3 4.2 Calcium 8.5 - 10.2 mg/dL 10.2 9.5 9.4 Bilirubin, Total 0.2 - 1.3 mg/dL 0.3 0.4 0.4 Alkaline Phosphatase 34 - 123 U/L 83 73 79 AST 13 - 35 U/L 27 25 34 ALT 7 - 38 U/L 22 24 34 Glucose 74 - 99 mg/dL 77 76 67 (L) BUN 7 - 21 mg/dL 20 20 19 Creatinine 0.58 - 0.96 mg/dL 0.97 (H) 0.92 0.90 Sodium 136 - 144 mmol/L 140 141 142 Potassium 3.7 - 5.1 mmol/L 5.0 4.5 3.7 Chloride 97 - 105 mmol/L 101 105 103 CO2 22 - 30 mmol/L 28 29 31 (H) Anion Gap 9 - 18 mmol/L 11 7 (L) 8 (L) eGFR >=60 mL/min/1.73m 66 71 72 Total Cholesterol, Nonfasting <200 mg/dL 188 158 163 Triglycerides, Nonfasting <150 mg/dL 118 105 120 HDL Cholesterol, Nonfasting >39 mg/dL 54 50 48 LDL Cholesterol, Nonfasting <100 mg/dL 110 (H) 87 91 Non HDL Cholesterol, Nonfasting <130 mg/dL 134 (H) 108 115 VLDL Cholesterol, Nonfasting <30 mg/dL 24 21 24 Total Chol/HDL Ratio, Nonfasting <5.10 mg/dL 3.48 3.16 3.40 LDL/HDL Ratio, Nonfasting <2.54 mg/dL 2.04 1.74 1.90 A/P ASSESSMENT/PLAN: 1. Mixed hyperlipidemia - ICD9: 272.2, ICD10: E78.2 (primary diagnosis) - good control - Continue current medication. - Encouraged following a low fat, low cholesterol diet. - Discussed the benefits of regular aerobic exercise and weight loss. - Encouraged following a low carbohydrate, healthy oil intake diet. 2. 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 Cont management per cardio 3. Sinus node dysfunction (HCC) - ICD9: 427.81, ICD10: I49.5 - as per #2 4. PTSD (post-traumatic stress disorder) - ICD9: 309.81, ICD10: F43.10 - stable not needing medical management 5. Depression with anxiety - ICD9: 300.4, ICD10: F41.8 - as per #4 6. Congestive heart failure, unspecified HF chronicity, unspecified heart failure type (HCC) - ICD9: 428.0, ICD10: I50.9 - as per #2 7. Chronic constipation - ICD9: 564.00, ICD10: K59.09 - improved. Is to cont current Tx. 8. Left sided abdominal pain - ICD9: 789.09, ICD10: R10.9 Not controlled. - Begin treatment with Prilosec 20 mg BID. Requested Prescriptions Signed Prescriptions Disp Refills omeprazole (PRILOSEC) 20 mg capsule 180 capsule 1 Sig: Take 1 capsule by mouth twice daily. 1/2 hr before meal. F/u 6 months WAE. Check CMP, Lipid, UA prior Alton Eisenberg MD documented in this encounter [facility] 10-07-2022 Miscellaneous Notes October 08, 2022 PID: [id number] Chris Ricardo [address] [place] [address] Dear Ms. Ricardo, We are pleased to inform you that the results of your recent breast imaging exam on 10/07/2022 are normal. Your mammogram demonstrates that you have dense breast tissue, which could hide abnormalities. Dense breast tissue, in and of itself, is a relatively common condition. Therefore, this information is not provided to cause undue concern; rather, it is to raise your awareness and promote discussion with your health care provider regarding the presence of dense breast tissue in addition to other risk factors. Early detection of cancer is very important. We also understand recommendations regarding breast cancer screening are controversial. Please discuss with your primary care provider which strategy is best for you and whether a mammogram is right for you. Your imaging studies and report will be kept on file at [facility] as part of your permanent medical record and are available for your continuing care. Thank you for allowing us to help in meeting your health care needs. Sincerely, Dr. Hyde Interpreting Radiologist [facility] (Normal over 40) documented in this encounter [facility] 08-30-2022 Miscellaneous Notes Returned patients phone call, no answer. Left . Q-go message sent to patient as well. Patient called in left patient waiting for home monitor and is going on vacation patient has questions and can be reached at [phone] documented in this encounter [facility] 08-26-2022 Miscellaneous Notes Pt requesting refills BLAIRE: 06/13/22 NOV: 10/09/22 Last Refill: 03/25/22 #90 1 refill Kristine Gifford LPN documented in this encounter [facility] 08-14-2022 History of Present illness Narrative Radiology Service Progress Note PATIENT NAME: Chris Ricardo DATE OF SERVICE: August 14, 2022 TIME: 8:15 AM PATIENT IDENTITY VERIFICATION COMPLETED USING TWO (2) IDENTIFIERS: Name and Date of confirmed by patient verbally. FALL SCREENING: Has the patient had 2 falls in the last year or 1 fall with injury or currently using an Ambulatory Assistive Device (Walker, Cane, Wheelchair, Crutches, etc.)? No PATIENT GENDER DATA: Female. status: : No status: NO. PATIENT RELEVANT IMPLANT DATA REVIEWED: Not Applicable RADIOLOGY DEPARTMENT: General X-ray: Exam(s) Completed: Abdomen X-Ray: Abdomen PERIPHERAL IV DATA: Not applicable SIGNED BY: RT Nicholas(R) August 14, 2022 8:15 AM documented in this encounter [facility] 08-13-2022 History of Present illness Narrative [id number] AND PHYSICAL Chris Ricardo 1960 REFERRING PHYSICIAN: Kelsie Doshi PA-C CHIEF COMPLAINT: Consult (Abdominal pain) HPI: The patient is a 62 year old female with a complaint of mid abdomen the left lower quadrant pain. The patient has noticed this pain for the past few months. She was initially seen by Ghassan Doshi in family medicine on May 23, 2022. She had noticed increased issues with constipation since a long 40-day driving trip out [place]. She had tried Senokot without significant success. After evaluation in family medicine a KUB was obtained which demonstrated significant fecal loading throughout the entire colon. She is recommended to take MiraLAX.. The patient noted not much success. She then had a CT scan performed on June 11, 2022. This demonstrated no significant pathologic changes. There were noted to be small nonobstructing renal calculi it was noted to have a moderately large stool burden. My review of the CAT scan demonstrated solid stool to the base of the cecum. Patient attempted increasing quantities of MiraLAX daily and added a probiotic and now notes still pain especially when she is lying down on her back and now notes liquidy stools. She has not had a follow-up x-ray since these procedures The patient is being seen by me today at the request of Dr. Alton Eisenberg MD for my opinion and advice regarding significant constipation with likely overflow diarrhea. PAST MEDICAL HISTORY Diagnosis Date Abnormal mole AK (actinic keratosis) 10/17/2020 Arrhythmogenic right ventricular cardiomyopathy (HCC) 01/14/2017 Cardiomyopathy. Has a pace maker/defibulator. Is limited to what exercising she can do. Bee sting allergy 04/05/2020 Benign neoplasm of colon 04/16/2010 Tubular adenoma 04/16/12 Cataracts, bilateral Chronic left shoulder pain 05/28/2018 Compound nevus 11/27/2020 Abd LLQ removed 11/2020 Constipation Depression with anxiety 07/09/2017 Situational, Managed by Counseling. Diffuse cystic mastopathy Essential hypertension Family history of breast cancer 07/04/2016 Family history of malignant neoplasm of breast 05/07/2007 2 maternal aunts History of COVID-19 03/25/202201/2022 Insomnia, unspecified rare Left shoulder pain 03/11/2011 Low testosterone level in female 2010 Mixed hyperlipidemia 2006 was on simvastatin, was able to come off med. Nonrheumatic tricuspid valve regurgitation 01/31/2022 Osteopenia ++FHx osteoporosis Peroneal tendinitis of left lower extremity 08/27/2017 Personal history of colonic polyps 04/21/2013 tubular adenoma. Plantar fasciitis of left foot 08/27/2017 Plantar fasciitis of right foot 07/18/2016 Presence of combination internal cardiac defibrillator (ICD) and pacemaker 01/14/2017 Ptosis, left eyelid benign PTSD (post-traumatic stress disorder) 08/13/2018 Unspecified closed fracture of ankle 2001 Ankle fracture left [place], [place] Urge incontinence PAST SURGICAL HISTORY Procedure Laterality Date APPENDECTOMY 1970 [place], [place] BLEPHAROPLASTY, UPPER EYELID Left 2017 BREAST BIOPSY 2006 left breast ([facility]) CARDIAC CATH 01/05/2017 normal COLONOSCOPY 04/27/2013 normal, repeat in 5 yrs d/t pers hx polyps and poss fam hx gi malignancy COLONOSCOPY 05/04/2018 repeat 10 yrs, Dr. Hatfield COLSC FLX W/RMVL OF TUMOR POLYP LESION SNARE TQ 04/16/2010 tubular adenoma at 70cm DILATION & CURETTAGE DX&/THER NONOBSTETRIC 09/2008 Dilation & curettage, Uterine Ablation with Novasure LEAD,PACEMAKER/DEFIB COMBO 01/06/2017 NOVASURE 09/2008 PRK Bilateral 01/2002 in [place] RADIOFREQUENCY ABLATION 01/03/2017 TONSILLECTOMY PRIMARY/SECONDARY <AGE 12 1970 Tonsillectomy [place], [place] Current Outpatient Medications Medication Sig polyethylene glycol 3350 (MIRALAX) 17 gram/dose powder Take 17 g by mouth once daily. Patient using 0.5 teaspoon daily. Dissolve dose in 4 - 8 ounces of liquid and take as directed. L. acidophilus/Bifid. animalis (PROBIOTIC) 5 billion cell cpSP Take 1 capsule by mouth once daily. furosemide (LASIX) 40 mg tablet Take 1 tablet by mouth once daily as needed (leg swelling). metoprolol succinate ER (TOPROL XL) 25 mg 24 hr tablet Take 1.5 tablets by mouth once daily. famotidine (PEPCID) 20 mg tablet Take 1 tablet by mouth at bedtime as needed. atorvastatin (LIPITOR) 10 mg tablet Take 1 tablet by mouth daily at bedtime. For cholesterol. EPINEPHrine (AUVI-Q) 0.3 mg/0.3 mL auto-injector Inject 0.3 mL intramuscularly as needed. glucosamine/chondr barrera A sod (OSTEO BI-FLEX ORAL) Take by mouth. CALCIUM-VITAMIN D3 ORAL Take by mouth. 1200 calcium- 1000 units D3 EPINEPHrine (EPIPEN) 0.3 mg/0.3 mL auto-injector Use as directed after bee sting if you develop shortness of breath, chest tightness of difficulty swallowing. acetaminophen (TYLENOL) 500 mg tablet Take 500 mg by mouth every 6 hours as needed. multivitamin ORAL tablet Take 1 tablet by mouth once daily. aspirin 81 mg ORAL Chew Take one(1) tablet daily. peg 3350-Electrolytes (GOLYTELY) 236-22.74-6.74 -5.86 gram suspension Drink 1/3 jug for 3 days in a row Current Facility-Administered Medications Medication Dose Route Frequency perflutren lipid microspheres 1.3 mL in NaCl (PF) 0.9% 10 mL injection (DEFINITY) INTRAVENOUS DIRECTED PRN sodium chloride 0.9 % (flush) 10 mL (BD POSIFLUSH) 10 mL INTRAVENOUS DIRECTED PRN perflutren lipid microspheres 1.3 mL in NaCl (PF) 0.9% 10 mL injection (DEFINITY) INTRAVENOUS DIRECTED PRN sodium chloride 0.9 % (flush) 10 mL (BD POSIFLUSH) 10 mL INTRAVENOUS DIRECTED PRN perflutren lipid microspheres 1.3 mL in NaCl (PF) 0.9% 10 mL injection (DEFINITY) INTRAVENOUS DIRECTED PRN sodium chloride 0.9 % (flush) 10 mL (BD POSIFLUSH) 10 mL INTRAVENOUS DIRECTED PRN ALLERGIES: Bee Sting PERSONAL HISTORY: Social History Tobacco Use Smoking status: Former Packs/day: 0.50 Years: 10.00 Pack years: 5.00 Types: Cigarettes Quit date: 08/04/1988 Years since quittin.0 Smokeless tobacco: Never Tobacco comments: quit 32 years ago Vaping Use Vaping Use: Never used Substance Use Topics Alcohol use: No Drug use: No FAMILY HISTORY: FAMILY HISTORY Problem Relation Age of Onset Hypertension Mother dx age 30's Headache Mother Osteoporosis Mother Cataract Mother Lipids Mother Dementia Mother Alzheimer's Disease Father first symptoms around 70 Diabetes Father late 70's Hypertension Father Lipids Father Arthritis Father Cataract Father other (Abdominal Aortic Aneurysm) Maternal Grandmother Diabetes Paternal Grandmother Cancer Paternal Grandfather unknown Skin Cancer Daughter Breast Cancer Maternal Aunt x2 other (Abdominal Aortic Aneurysm) Maternal Aunt x2 Osteoporosis Maternal Aunt Osteoporosis Maternal Aunt Osteoporosis Maternal Aunt Osteoporosis Maternal Aunt other (Abdominal Aortic Aneurysm) Maternal Uncle Osteoporosis Maternal Uncle Osteoporosis Maternal Uncle Osteoporosis Maternal Uncle Osteoporosis Maternal Uncle Colon Cancer Other none other (cousin of blood clot; had dm, af and etoh) Other REVIEW OF SYMPTOMS: The review of systems data was entered by the nurse and reviewed by dc Nursing Notes: Amanda Mosqueda RN 08/13/2022 4:36 PM Addendum REVIEW OF SYSTEMS: General: The patient denies fatigue, denies weight loss, denies weight gain, denies feeling hot, and denies feelings of cold. Eyes: The patient denies glaucoma, denies eye injury/surgery, wears glasses or contacts. Ear/Nose/Throat: The patient NOTES allergies, denies hayfever, denies ear infections, and denies bloody noses. Cardiovascular: The patient denies chest pain, denies heart disease, NOTES high blood pressure,denies cardiac stent, denies prior heart attack, denies irregular heart beat, NOTES high cholesterol, denies poor circulation, NOTES heart failure, other cardiac issues, denies claudication, denies cold feet, denies peripheral arterial stent. Respiratory: The patient denies tuberculosis, denies pneumonia, denies frequent cough, denies pulmonary embolism, denies shortness of breath, and denies coughing up blood. Gastrointestinal: The patient denies difficulty swallowing, denies acid reflux, denies ulcers, denies vomiting, denies jaundice/hepatitis, denies gallbladder problems, denies black or tarry stools, denies hemorrhoids, denies bleeding from rectum, denies diverticulitis, NOTES constipation, denies diarrhea, denies loss of stool control, and denies hernias. Kidney/Bladder: The patient NOTES kidney stones, denies urine infections, and denies bloody urine. Skin: The patient denies a history of skin cancer, NOTES bleeding/changing moles, and denies a history of skin rash. Neurologic: The patient denies a history of epilepsy/convulsions, denies headaches, denies head/spinal injuries, and denies stroke/TIA. Psychiatric: The patient denies psychiatric medications, NOTES depression, and denies voices, denies substance abuse. Endocrine: The patient denies thyroid disorders, denies diabetes, and denies hormonal problems. Hematologic: The patient denies a history of bruising, denies bleeding, and denies anemia, denies blood clots. Infections: The patient denies a history of measles and mumps, denies rheumatic fever, and denies sexually transmitted diseases. Musculoskeletal: The patient denies back pain/injury, denies back problems, denies sciatica, NOTES knee/foot trouble, denies arthritis, or denies gout. When was patient's last Mammogram screening? 09/20/2021 Last Colonoscopy: 05/04/2018 Amanda Mosqueda RN PHYSICAL EXAMINATION: General: The patient is 62 year old female, well nourished, well hydrated in no acute distress. The patient is oriented to time, place, and person. VITALS: Blood pressure 118/70, pulse 78, temperature 37.2 C (98.9 F), weight 71.3 kg (157 lb 3.2 oz), last menstrual period 09/29/2008, SpO2 98 %. HEENT: Normal cephalic, ataumatic, pupils are equally round, sclera are anicteric, mucous membranes are moist, oropharynx is clear. Neck has no masses, asymmetry or lymphadenopathy. Thyroid is unremarkable. Respiratory: Clear to auscultation and percussion. Normal respiratory excursion and pattern. Cardiac: Examination is regular rate and rhythm. Abdominal exam: Soft, nontender, with no palpable masses. No hepatosplenomegaly. No palpable hernias. Rectal exam: exam deferred Extremities: no clubbing, cyanosis or edema. No adenopathy. Other: LABORATORY VALUES: As Noted RADIOLOGIC STUDIES: As Noted Assessment IMPRESSION: Likely overflow diarrhea with persistent constipation PLAN: I have ordered a KUB to see if she still has significant fecal loading. Assuming this will be the case I have ordered GoLytely for her to take one third of the jug for 3 days. We will consider a follow-up KUB after this attempt. She had a colonoscopy performed 2018 which was unremarkable. This time I do not feel she needs a current colonoscopy. Diagnoses: (K59.09) Chronic constipation (primary encounter diagnosis) (R10.9) Abdominal pain, unspecified abdominal location My findings have been communicated to Alton Eisenberg MD via shared medical record. This note will be forwarded to Alton Eisenberg MD. Return to Clinic: The patient is instructed to follow-up with me as needed. Arnel Hatfield MD documented in this encounter [facility] 08-13-2022 Nurse Note REVIEW OF SYSTEMS: General: The patient denies fatigue, denies weight loss, denies weight gain, denies feeling hot, and denies feelings of cold. Eyes: The patient denies glaucoma, denies eye injury/surgery, wears glasses or contacts. Ear/Nose/Throat: The patient NOTES allergies, denies hayfever, denies ear infections, and denies bloody noses. Cardiovascular: The patient denies chest pain, denies heart disease, NOTES high blood pressure,denies cardiac stent, denies prior heart attack, denies irregular heart beat, NOTES high cholesterol, denies poor circulation, NOTES heart failure, other cardiac issues, denies claudication, denies cold feet, denies peripheral arterial stent. Respiratory: The patient denies tuberculosis, denies pneumonia, denies frequent cough, denies pulmonary embolism, denies shortness of breath, and denies coughing up blood. Gastrointestinal: The patient denies difficulty swallowing, denies acid reflux, denies ulcers, denies vomiting, denies jaundice/hepatitis, denies gallbladder problems, denies black or tarry stools, denies hemorrhoids, denies bleeding from rectum, denies diverticulitis, NOTES constipation, denies diarrhea, denies loss of stool control, and denies hernias. Kidney/Bladder: The patient NOTES kidney stones, denies urine infections, and denies bloody urine. Skin: The patient denies a history of skin cancer, NOTES bleeding/changing moles, and denies a history of skin rash. Neurologic: The patient denies a history of epilepsy/convulsions, denies headaches, denies head/spinal injuries, and denies stroke/TIA. Psychiatric: The patient denies psychiatric medications, NOTES depression, and denies voices, denies substance abuse. Endocrine: The patient denies thyroid disorders, denies diabetes, and denies hormonal problems. Hematologic: The patient denies a history of bruising, denies bleeding, and denies anemia, denies blood clots. Infections: The patient denies a history of measles and mumps, denies rheumatic fever, and denies sexually transmitted diseases. Musculoskeletal: The patient denies back pain/injury, denies back problems, denies sciatica, NOTES knee/foot trouble, denies arthritis, or denies gout. When was patient's last Mammogram screening? 09/20/2021 Last Colonoscopy: 05/04/2018 Amanda Mosqueda RN documented in this encounter [facility] 08-02-2022 Instructions Dave Alcala MD - 08/02/2022 11:33 AM EST We increased your Lasix from 20mg to 40mg daily We increased your Toprol XL from 25mg daily to 37.5mg daily. Virtual visit in 6 months Follow-up in person with labs and echocardiogram in 1 year. documented in this encounter [facility] 08-02-2022 History of Present illness Narrative Images from the original note were not included. Heart [facility]ascular [facility] For Heart [facility] SECTION OF HEART FAILURE and CARDIAC TRANSPLANT MEDICINE OUTPATIENT VISIT DATE August 02, 2022 OUTPATIENT VISIT TYPE Established Patient PRIMARY CARE PHYSICIAN: Alton Eisenberg [address] [place] [address] CHIEF COMPLAINT: Established follow-up NURSING INTAKE (Patient s concerns and/or recent hospitalizations/ER visits): HF Nursing Assessment: Interim Hospitalizations and/or ER visits:no Chest Pain: no Skipping or irregular heartbeats: no Shortness of breath at rest: no Shortness of breath with activity: yes with exertion Cough: yes Waking up in the middle of the night gasping for air: no Lightheadedness or dizziness: seldomly Feeling like you are going to pass out: no Actually passing out: no Poor energy level: fair Unintentional weight gain: no Unintentional weight loss: no Swelling in your legs,feet, abdomen: yes abdomen,legs Filling up quickly when you eat: sometimes HISTORY OF PRESENT ILLNESS: Ms. Ricardo is 62 year old female with history of ARVC (PKP2 mutation), right ventricular dilation, moderate tricuspid regurgitation, VT s/p ICD and PTSD who presents as an established visit in heart failure clinic. Patient was last seen on 01/31/2022. Started on Lasix PRN during that visit and planned for echocardiogram today. TTE today shows no significant change. She notes after starting Lasix 20mg daily she noted improvement in her lower extremity edema and abdominal distension, but this has since worsened and the lasix seems less effective. Denies any ICD discharges. Notes normal exertional capacity. Denies any orthopnea, PND, lightheadedness/dizziness, or syncope. In terms of past medical history: Patient notes that he cardiac history started in 1993. She had a work-up in the at that time due to recurrent lightheadedness/dizziness. She was found to have sinus bradycardia at that time. Stress test, echocardiogram, nuclear testing was normal. In 2000 as part of the she had traveled to [place] and had an episode of stress and went to see the doctor at that time and was found to have PACs. In 2016, her daughter was about to graduate from college and she was training for a hiking trip in [place]. The night before she left she woke up with chest pressure and nausea/vomiting. She called 911 and went [place]. She was found to be in sustained VT with LBBB. She underwent comprehensive testing including a heart cath and cardiac MRI. There was no significant CAD but an area of akinesis on her MRI concerning for ARVC. She underwent and EP procedure 01/03/2017 and the were able to modify an area of scar of the inferior, free wall and inferoseptum of the RV. Though the VT was not eliminated, it was modified. Reportedly, the VT was not pace terminable prior to but was after the procedure. She had a dual chamber ICD implant 01/06/2017 MDT MRI and has done well from an arrhythmia perspective on beta el. She was originally on Toprol XL 50mg but had lethargy. But she was able to tolerate Toprol XL 25mg daily. Genetic testing + PKP2. She notes feeling well and but generally is able to stay active but does have to take an occasional nap. She follows with Dr. Tucker for her VT. She has never had an ICD shocks. She has had swelling in her thighs and lower abdomen. She notes this is correlated to when she goes out to eat and has a lot of salt. Denies any orthopnea, PND, lightheadedness/dizziness, or syncope. PAST MEDICAL HISTORY Diagnosis Date Abnormal mole AK (actinic keratosis) 10/17/2020 Arrhythmogenic right ventricular cardiomyopathy (HCC) 01/14/2017 Cardiomyopathy. Has a pace maker/defibulator. Is limited to what exercising she can do. Bee sting allergy 04/05/2020 Benign neoplasm of colon 04/16/2010 Tubular adenoma 04/16/12 Cataracts, bilateral Chronic left shoulder pain 05/28/2018 Compound nevus 11/27/2020 Abd LLQ removed 11/2020 Depression with anxiety 07/09/2017 Situational, Managed by Counseling. Diffuse cystic mastopathy Family history of breast cancer 07/04/2016 Family history of malignant neoplasm of breast 05/07/2007 2 maternal aunts History of COVID-19 03/25/202201/2022 Insomnia, unspecified rare Left shoulder pain 03/11/2011 Low testosterone level in female 2010 Mixed hyperlipidemia 2006 was on simvastatin, was able to come off med. Nonrheumatic tricuspid valve regurgitation 01/31/2022 Osteopenia ++FHx osteoporosis Peroneal tendinitis of left lower extremity 08/27/2017 Personal history of colonic polyps 04/21/2013 tubular adenoma. Plantar fasciitis of left foot 08/27/2017 Plantar fasciitis of right foot 07/18/2016 Presence of combination internal cardiac defibrillator (ICD) and pacemaker 01/14/2017 Ptosis, left eyelid benign PTSD (post-traumatic stress disorder) 08/13/2018 Unspecified closed fracture of ankle 2000 Ankle fracture left [place], [place] Urge incontinence PAST SURGICAL HISTORY Procedure Laterality Date APPENDECTOMY 1971 [place], [place] BLEPHAROPLASTY, UPPER EYELID Left 2016 BREAST BIOPSY 2006 left breast (summa) CARDIAC CATH 01/05/2017 normal COLONOSCOPY 04/27/13 normal, repeat in 5 yrs d/t pers hx polyps and poss fam hx gi malignancy COLONOSCOPY 05/04/2018 repeat 10 yrs, Dr. Hatfield COLSC FLX W/RMVL OF TUMOR POLYP LESION SNARE TQ 04/16/10 tubular adenoma at 70cm DILATION & CURETTAGE DX&/THER NONOBSTETRIC 09/2008 Dilation & curettage, Uterine Ablation with Novasure LEAD,PACEMAKER/DEFIB COMBO 01/06/2017 NOVASURE 09/2008 PRK Bilateral 01/2002 in [place] RADIOFREQUENCY ABLATION 01/03/2017 TONSILLECTOMY PRIMARY/SECONDARY <AGE 12 1970 [place]illectomy [place] SOCIAL HISTORY Social History Tobacco Use Smoking status: Former Packs/day: 0.50 Years: 10.00 Pack years: 5.00 Types: Cigarettes Quit date: 08/04/1988 Years since quittin.0 Smokeless tobacco: Never Tobacco comments: quit 32 years ago Vaping Use Vaping Use: Never used Substance Use Topics Alcohol use: No Drug use: No FAMILY HISTORY Problem Relation Age of Onset Hypertension Mother dx age 30's Headache Mother Osteoporosis Mother Cataract Mother Lipids Mother Dementia Mother Alzheimer's Disease Father first symptoms around 70 Diabetes Father late 70's Hypertension Father Lipids Father Arthritis Father Cataract Father other (Abdominal Aortic Aneurysm) Maternal Grandmother Diabetes Paternal Grandmother Cancer Paternal Grandfather unknown Skin Cancer Daughter Breast Cancer Maternal Aunt x2 other (Abdominal Aortic Aneurysm) Maternal Aunt x2 Osteoporosis Maternal Aunt Osteoporosis Maternal Aunt Osteoporosis Maternal Aunt Osteoporosis Maternal Aunt other (Abdominal Aortic Aneurysm) Maternal Uncle Osteoporosis Maternal Uncle Osteoporosis Maternal Uncle Osteoporosis Maternal Uncle Osteoporosis Maternal Uncle Colon Cancer Other none other (cousin of blood clot; had dm, af and etoh) Other ALLERGIES: ALLERGIES Allergen Reactions Bee Sting Swelling CURRENT MEDICATIONS: metoprolol succinate ER (TOPROL XL) 25 mg 24 hr tablet^Take 1 tablet by mouth once daily.^Disp: 90 tablet^Rfl: 3 famotidine (PEPCID) 20 mg tablet^Take 1 tablet by mouth at bedtime as needed.^Disp: 90 tablet^Rfl: 1 atorvastatin (LIPITOR) 10 mg tablet^Take 1 tablet by mouth daily at bedtime. For cholesterol.^Disp: 90 tablet^Rfl: 1 furosemide (LASIX) 20 mg tablet^Take 1 tablet by mouth once daily as needed.^Disp: 30 tablet^Rfl: 11 EPINEPHrine (AUVI-Q) 0.3 mg/0.3 mL auto-injector^Inject 0.3 mL intramuscularly as needed.^Disp: 2 Each^Rfl: 1 glucosamine/chondr barrera A sod (OSTEO BI-FLEX ORAL)^Take by mouth.^Disp: ^Rfl: CALCIUM-VITAMIN D3 ORAL^Take by mouth. 1200 calcium- 1000 units D3^Disp: ^Rfl: EPINEPHrine (EPIPEN) 0.3 mg/0.3 mL auto-injector^Use as directed after bee sting if you develop shortness of breath, chest tightness of difficulty swallowing.^Disp: 2 Each^Rfl: 1 acetaminophen (TYLENOL) 500 mg tablet^Take 500 mg by mouth every 6 hours as needed.^Disp: ^Rfl: multivitamin ORAL tablet^Take 1 tablet by mouth once daily.^Disp: ^Rfl: 0 aspirin 81 mg ORAL Chew^Take one(1) tablet daily.^Disp: ^Rfl: 0 REVIEW OF SYSTEMS: CONSTITUTION: Negative for: Fever, Night sweats and Recent weight change HEENT: Negative for: Hearing loss RESPIRATORY: Positive for: Cough Negative for: Difficulty breathing GASTROINTESTINAL: Positive for: Abdominal distention Negative for: Melena, Nausea, Diarrhea and Early satiety MUSCULOSKELETAL: Negative for: Arthralgias and Myalgias NEUROLOGICAL: Negative for: Headaches and Dizziness SKIN: Negative for: Rash EYES: Negative for: Visual disturbance CARDIOVASCULAR: Positive for: Leg swelling and Arrhythmia Negative for: Chest pain and Pre-syncope GENITOURINARY: Negative for: Difficulty urinating PATIENT ENTERED DATA: KCCQ-12 Scores 01/24/2022 07/29/2022 Physical Limitation Score 75 (Class II Heart Failure ) 100 (Class I Heart Failure ) Symptom Frequency Score 91.67 (Class I Heart Failure ) 93.75 (Class I Heart Failure ) Quality of Life Score 87.5 (Class I Heart Failure) 87.5 (Class I Heart Failure) Social Limitation Score 91.67 (Class I Heart Failure) 100 (Class I Heart Failure) Overall Summary Score 86.46 (Class I Heart Failure ) 95.31 (Class I Heart Failure ) PHQ-9 10/15/2020 01/24/2022 07/29/2022 Score 3 4 5 PROMIS Global Health - (T-Scores - the mean of general population = 50. Five points is a clinically meaningful difference.) 01/24/2022 05/23/2022 06/12/2022 Physical T-Score 54.1 47.7 50.8 Mental T-Score 59 62.5 59 PHYSICAL EXAMINATION: BP 119/74 (BP Site: Left Arm, BP Position: Sitting, BP Cuff Size: Regular Adult) Pulse 65 Resp 15 Ht 165.1 cm (5' 5) Wt 70.3 kg (155 lb) LMP 09/29/2008 SpO2 94% BMI 25.79 kg/m General: Well appearing, in no acute distress. Skin: No clubbing, no cyanosis. Eyes: Extra ocular movements intact Oropharynx: Teeth in good repair. Neck: No jugular venous distention, no carotid bruits, carotids have a normal upstroke, no palpable thyromegaly. Lungs: Clear to auscultation bilaterally, no wheezing or rhonchi. Heart: Regular rhythm, PMI not displaced, S1, S2 normal, no S3, no S4, no heaves, no rub and no murmur. Abdomen: Soft, nontender, bowel sounds normal, no palpable organomegaly, no bruits. Extremities: Trace peripheral edema . Grade 2/4 distal pulses bilaterally. Neuro: Oriented to person, place and time, alert, cooperative, gait coordinated. CARDIOVASCULAR MEDICINE TESTING: I have personally reviewed the Electrocardiogram, Laboratory Testing, and Echocardiogram. Last EKG Result Conclusion ECG COMPLETE Collected: 11/01/2021 8:48 AM (Final result) Impression: ATRIAL-PACED RHYTHM WITH PROLONGED AV CONDUCTION LOW VOLTAGE QRS, CONSIDER PULMONARY DISEASE, PERICARDIAL EFFUSION, OR NORMAL VARIANT NONSPECIFIC T WAVE ABNORMALITY ABNORMAL ECG Confirmed by AMAURY TERRY MD ([id number]) on 11/05/2021 6:48:14 PM Last ECHO Result Conclusion ECHO Collected: 08/02/2022 9:02 AM (Final result) Impression: CONCLUSIONS: - Exam indication: Arrhythmogenic right ventricular cardiomyopathy - The left ventricle is normal in size. Left ventricular systolic function is normal. EF = 56 5% (2D biplane) - The right ventricle is dilated. Right ventricular systolic function is mildly decreased. RVFW: -18.8%. RV4CSL: -17.1% - There is moderate (2+ - 3+) tricuspid valve regurgitation. - AV morphology not well visualized in short axis images on today's study. - Exam was compared with the prior echocardiographic exam performed on 12/04/2021. No major change. * * * Final * * * Glucose (mg/dL) Date Value 07/19/2022 76 10/04/2020 94 Potassium (mmol/L) Date Value 07/19/2022 4.5 10/04/2020 4.5 Sodium (mmol/L) Date Value 07/19/2022 141 10/04/2020 141 Chloride (mmol/L) Date Value 07/19/2022 105 10/04/2020 102 CO2 (mmol/L) Date Value 07/19/2022 29 10/04/2020 30 Creatinine (mg/dL) Date Value 07/19/2022 0.92 10/04/2020 0.90 BUN (mg/dL) Date Value 07/19/2022 20 10/04/2020 21 Anion Gap (mmol/L) Date Value 07/19/2022 7 10/04/2020 9 Calcium (mg/dL) Date Value 10/04/2020 9.5 Calcium, Total (mg/dL) Date Value 07/19/2022 9.5 Hemoglobin (g/dL) Date Value 05/23/2022 14.9 07/26/2019 13.1 Hematocrit (%) Date Value 05/23/2022 47.2 07/26/2019 42.9 WBC (k/uL) Date Value 05/23/2022 5.02 07/26/2019 4.42 NT Pro BNP Date Value Ref Range Status 07/19/2022 137 (H) <125 pg/mL Final Cardiac MRI 01/06/2017: FINDINGS: The right ventricle is abnormally dilated. On the 4-chamber view at end diastole, the right ventricle measures 5.3 cm in cavitary diameter, while the left ventricle measures 4.7 cm. There is also straightening of the interventricular septum. Right ventricle appears mildly hypertrabeculated, although the free wall is suspected to be somewhat thinned. The dedicated ARVD protocol was not performed, and T1-weighted images were therefore not obtained to evaluate for fatty infiltration. On the short-axis cine images, there are several foci of bulging of the right ventricular free wall during systole, and there is also abnormal hypokinesis of the right ventricle with slight irregularity of the wall shown on the 4-chamber cine images. On delayed postcontrast images, there is suspected to be multifocal abnormal enhancement of the right ventricular myocardium, although there is artifact, limiting this determination. Right ventricular end-diastolic volume normalized to patient surface area of 1.79 meters squared is 134 milliliters/meter squared. Based on endocardial contours, the right ventricular ejection fraction is probably underestimated but appears to be significantly less than 40%. The left ventricle demonstrates normal myocardial thickness without left ventricular segmental wall motion abnormalities. Based on endocardial contours, the left ventricular ejection fraction is 56% with an end-diastolic volume of 157 mL (normal 52-141), and systolic volume of 69 mL (normal 13-51), and stroke volume 88 mL (normal 33-97). No definite abnormal left ventricular myocardial enhancement. There is a minimal amount of pericardial fluid. Small pleural effusions are present, right greater than left. IMPRESSION: Abnormal right ventricular dilatation with multifocal dyskinesis and decreased systolic function, as well as suspected foci of abnormal right ventricular enhancing fibrosis. MRI findings are suggestive of arrhythmogenic right ventricular cardiomyopathy/dysplasia and fulfill one major criterion according to 2010 task force criteria. C 01/05/2017: LMCA within normal limits LMCA within normal limits No angiographic evidence of plaque in the LMCA, LAD, Circumflex or RCA systems. LAD within normal limits CIRC within normal limits RCA within normal limits TTE 01/04/2017: Left Ventricle: The left ventricular chamber size is normal. There is no left ventricular hypertrophy observed. Global left ventricular wall motion and contractility are within normal limits. There is normal left ventricular systolic function. The estimated ejection fraction is 55-60%. The ejection fraction is calculated to be 57% using the Method of Disks. No regional wall motion abnormalities are evident. Left Atrium: The left atrial chamber size is normal. A patent foramen ovale is not demonstrated by color Doppler. Right Ventricle: The right ventricular chamber size and systolic function are within normal limits. The right ventricular cavity size is normal. The right ventricular global systolic function is normal. Right Atrium: The right atrial cavity size is normal. Aortic Valve: The aortic valve is trileaflet. Mild aortic leaflet calcification is visualized. The aortic valve leaflets appear mildly sclerotic. There is no hemodynamically significant stenosis. There is a trace of aortic regurgitation. Mitral Valve: The mitral valve leaflets appear normal. There is mild mitral annular calcification. There is no evidence of mitral valve prolapse. There is no evidence of mitral stenosis. There is trivial physiological regurgitation of the mitral valve. Tricuspid Valve: The tricuspid valve leaflets are normal. There is mild tricuspid regurgitation. No pulmonary hypertension is noted. Pulmonic Valve: The pulmonic valve appears grossly normal in structure and function. Pericardium: There is no pericardial effusion. Aorta: The aortic root is normal in diameter. Venous: There is less than 50% respiratory change in the inferior vena cava dimension. IMPRESSION: Ms. Ricardo is 62 year old female with history of ARVC (PKP2 mutation), right ventricular dilation, moderate tricuspid regurgitation, VT s/p ICD and PTSD who presents for an established visit in heart failure clinic. NYHA Functional Class: II Stage: C heart failure Target weight: 155lbs 1. ARVC 2. Right ventricular dilation 3. Tricuspid regurgitation 4. VT 5. PTSD Heart Failure specific medications (list current, note updates or changes, note prior intolerance): BB: Increased Toprol XL from 25mg daily to 37.5mg daily (Did not tolerate 50mg daily) ACEI/ARB/ARNI: none MRA: none SGLT2: none Diuretic: Increased Lasix from 20mg daily PRN to 40mg daily PRN Digoxin: none Vasodilators: none Anti-arrhythmics: none Ivabradine: none Other anti-HTN: none PLAN AND RECOMMENDATIONS: 1. ARVC -NYHA functional class II, stage C, LVEF 59% -Etiology of heart failure is likely ARVC given prior MRI findings in 2017 and PKP2 mutation noted on genetic testing 03/2017. -Echocardiogram 12/04/2021 shows moderate RV dysfunction and moderate tricuspid regurgitation, compared to cardiac MRI in 2017 RV function has declined but unclear about duration of RV dysfunciton -TTE today shows unchanged moderate TR and RV function. No need for intervention at this time. -Increased Lasix from 20mg daily PRN to 40mg daily PRN - Increased Toprol XL from 25mg daily to 37.5mg daily (Did not tolerate 50mg daily) -No indication for ARNI/MRA/SLGT2 given normal LV function at this time. -No indication for advanced therapies at this time, but will continue to monitor RV function and signs of LV function going forward given known ARVC. Follow-up virtual in 6 months and in person visit in 1 year with echocardiogram. I personally interviewed, confirmed and edited the above information as obtained by others I personally spent 35 minutes in total time involved in the management and care of this patient. We discussed natural history of disease, current treatment options, and future potential treatment options. We discussed diet, exercise, other non-medical management as above. Dave Alcala MD [facility] Section Of Heart Failure and Cardiac Transplant Medicine Heart and Vascular [facility] Desk [id number] [id number] documented in this encounter [facility] 06-26-2022 Miscellaneous Notes Please see pt's update. Sandy Ritchie LPN documented in this encounter [facility] 06-13-2022 Instructions Alton Eisenberg MD - 06/13/2022 9:48 AM EST My chart Dr. Eisenberg in the next few weeks about the Miralax and your BM's. documented in this encounter [facility] 06-13-2022 History of Present illness Narrative Chief Complaint Patient presents with: Abdominal Pain HPI Chris Ricardo is a 62 year old female who presents here today for Acute onset of continued Abdomen pain. Patient has been having the abdomen and constipation. Was seen by Kelsie and took Miralax which seemed to help with the constipation. However was instructed to take just for 3 days. Patient is still having lower left abdomen pain off and on mainly at bedtime with 3-4 pain scale. No Nausea/Vomiting. Stool has been very small and hard. CT was completed on 06/11/2022. Has mucus sometimes on the stool but no blood. Past medical history, appointments, medications, allergies reviewed. Previous Medical History PAST MEDICAL HISTORY Diagnosis Date Abnormal mole AK (actinic keratosis) 10/17/2020 Arrhythmogenic right ventricular cardiomyopathy (HCC) 01/14/2017 Cardiomyopathy. Has a pace maker/defibulator. Is limited to what exercising she can do. Bee sting allergy 04/05/2020 Benign neoplasm of colon 04/16/2010 Tubular adenoma 04/16/12 Cataracts, bilateral Chronic left shoulder pain 05/28/2018 Compound nevus 11/27/2020 Abd LLQ removed 11/2020 Depression with anxiety 07/09/2017 Situational, Managed by Counseling. Diffuse cystic mastopathy Family history of breast cancer 07/04/2016 Family history of malignant neoplasm of breast 05/07/2007 2 maternal aunts History of COVID-19 03/25/202201/2022 Insomnia, unspecified rare Left shoulder pain 03/11/2011 Low testosterone level in female 2010 Mixed hyperlipidemia 2006 was on simvastatin, was able to come off med. Nonrheumatic tricuspid valve regurgitation 01/31/2022 Osteopenia ++FHx osteoporosis Peroneal tendinitis of left lower extremity 08/27/2017 Personal history of colonic polyps 04/21/2013 tubular adenoma. Plantar fasciitis of left foot 08/27/2017 Plantar fasciitis of right foot 07/18/2016 Presence of combination internal cardiac defibrillator (ICD) and pacemaker 01/14/2017 Ptosis, left eyelid benign PTSD (post-traumatic stress disorder) 08/13/2018 Unspecified closed fracture of ankle 2000 Ankle fracture left [place], [place] Urge incontinence Previous Surgical History PAST SURGICAL HISTORY Procedure Laterality Date APPENDECTOMY 1971 [place], [place] BLEPHAROPLASTY, UPPER EYELID Left 2017 BREAST BIOPSY 2006 left breast ([facility]ma) CARDIAC CATH 01/05/2017 normal COLONOSCOPY 04/27/13 normal, repeat in 5 yrs d/t pers hx polyps and poss fam hx gi malignancy COLONOSCOPY 05/04/2018 repeat 10 yrs, Dr. Hatfield COLSC FLX W/RMVL OF TUMOR POLYP LESION SNARE TQ 04/16/10 tubular adenoma at 70cm DILATION & CURETTAGE DX&/THER NONOBSTETRIC 09/2008 Dilation & curettage, Uterine Ablation with Novasure LEAD,PACEMAKER/DEFIB COMBO 01/06/2017 NOVASURE 09/2008 PRK Bilateral 01/2002 in [place] RADIOFREQUENCY ABLATION 01/03/2017 TONSILLECTOMY PRIMARY/SECONDARY <AGE 12 1970 T[place]illectomy [place], [place] Family History FAMILY HISTORY Problem Relation Age of Onset Hypertension Mother dx age 30's Headache Mother Osteoporosis Mother Cataract Mother Lipids Mother Dementia Mother Alzheimer's Disease Father first symptoms around 70 Diabetes Father late 70's Hypertension Father Lipids Father Arthritis Father Cataract Father other (Abdominal Aortic Aneurysm) Maternal Grandmother Diabetes Paternal Grandmother Cancer Paternal Grandfather unknown Skin Cancer Daughter Breast Cancer Maternal Aunt x2 other (Abdominal Aortic Aneurysm) Maternal Aunt x2 Osteoporosis Maternal Aunt Osteoporosis Maternal Aunt Osteoporosis Maternal Aunt Osteoporosis Maternal Aunt other (Abdominal Aortic Aneurysm) Maternal Uncle Osteoporosis Maternal Uncle Osteoporosis Maternal Uncle Osteoporosis Maternal Uncle Osteoporosis Maternal Uncle Colon Cancer Other none other (cousin of blood clot; had dm, af and etoh) Other Patient Allergies ALLERGIES Allergen Reactions Bee Sting Swelling Current Medications Current Outpatient Medications on File Prior to Visit Medication Sig metoprolol succinate ER (TOPROL XL) 25 mg 24 hr tablet Take 1 tablet by mouth once daily. famotidine (PEPCID) 20 mg tablet Take 1 tablet by mouth at bedtime as needed. atorvastatin (LIPITOR) 10 mg tablet Take 1 tablet by mouth daily at bedtime. For cholesterol. furosemide (LASIX) 20 mg tablet Take 1 tablet by mouth once daily as needed. EPINEPHrine (AUVI-Q) 0.3 mg/0.3 mL auto-injector Inject 0.3 mL intramuscularly as needed. glucosamine/chondr barrera A sod (OSTEO BI-FLEX ORAL) Take by mouth. CALCIUM-VITAMIN D3 ORAL Take by mouth. 1200 calcium- 1000 units D3 EPINEPHrine (EPIPEN) 0.3 mg/0.3 mL auto-injector Use as directed after bee sting if you develop shortness of breath, chest tightness of difficulty swallowing. acetaminophen (TYLENOL) 500 mg tablet Take 500 mg by mouth every 6 hours as needed. multivitamin ORAL tablet Take 1 tablet by mouth once daily. aspirin 81 mg ORAL Chew Take one(1) tablet daily. Current Facility-Administered Medications on File Prior to Visit Medication perflutren lipid microspheres 1.3 mL in NaCl (PF) 0.9% 10 mL injection (DEFINITY) sodium chloride 0.9 % (flush) 10 mL (BD POSIFLUSH) perflutren lipid microspheres 1.3 mL in NaCl (PF) 0.9% 10 mL injection (DEFINITY) sodium chloride 0.9 % (flush) 10 mL (BD POSIFLUSH) Social History Social History Tobacco Use Smoking status: Former Packs/day: 0.50 Years: 10.00 Pack years: 5.00 Types: Cigarettes Quit date: 08/04/1988 Years since quittin.8 Smokeless tobacco: Never Tobacco comments: quit 32 years ago Vaping Use Vaping Use: Never used Substance Use Topics Alcohol use: No Drug use: No Review of Symptoms REVIEW OF SYSTEMS See HPI EXAM: BP 112/80 (BP Site: Right Arm, BP Position: Sitting, BP Cuff Size: Regular Adult) Pulse 64 Temp 36.5 C (97.7 F) (Tympanic) Resp 16 Wt 70.3 kg (155 lb) LMP 09/29/2008 BMI 26.19 kg/m General Appearance: Well appearing, alert, in no acute distress, well-hydrated, well nourished.. Abdomen: Normal abdominal exam, Abdomen soft, non-tender. Bowel sounds normal. No masses, organomegaly. Health Maintenance List MAMMOGRAM due on 09/20/2022 PAP TESTING due on 09/10/2024 HPV TESTING due on 09/10/2024 DIABETES SCREEN due on 05/23/2025 DTAP,TDAP,TD(3 - Td or Tdap) due on 03/26/2027 LIPID SCREEN due on 05/23/2027 COLORECTAL CANCER SCREENING due on 05/04/2028 INFLUENZA Completed HEPATITIS C SCREENING Completed SHINGRIX VACCINE Completed COVID-19 VACCINE Completed HIV SCREENING Discontinued Data reviewed 06/12/2022 9:22 AM - Radiology, [place] In Impression IMPRESSION: Bilateral nonobstructing renal calculi. No hydronephrosis. Oracle Reports Developer: KATHY Transcribe Date/Time: Jun 12 2022 9:14A Dictated by : BRADLY ROCHA MD This examination was interpreted and the report reviewed and electronically signed by: BRADLY ROCHA MD on Jun 12 2022 9:19AM EST Results-Findings * * *Final Report* * * DATE OF EXAM: Jun 11 2022 10:21AM [facility] [id number] - CT ABD/PEL WO IVCON / PROCEDURE REASON: Left lower quadrant abdominal pain * * * * Physician Interpretation * * * * EXAMINATION: CT ABDOMEN AND PELVIS WITHOUT IV CONTRAST CLINICAL HISTORY: Left lower quadrant pain. TECHNIQUE: Non-IV contrast imaging of the abdomen and pelvis was performed using standard technique, scanning from just above the dome of the diaphragm to the symphysis pubis. Unenhanced imaging is limited for the evaluation of some intra-abdominal and pelvic pathology. MQ: [id number] Contrast: IV: None Oral: 50 ml of Omni 240 10-25ml diluted with water CT Radiation dose: Integrated Dose-length product (DLP) for this visit = 329 mGy*cm. CT Dose Reduction Employed: Automated exposure control(AEC) and iterative recon COMPARISON: None. RESULT: Abdomen / Pelvis: Liver: Unremarkable unenhanced liver. Biliary: Gallbladder present without radiopaque stones or wall thickening. Spleen: No splenomegaly. Pancreas: Unremarkable. Adrenals: No mass. Kidneys: 3 mm nonobstructing right renal mid pole calculus. Multiple nonobstructing left renal mid and lower pole calculi ranging in size from 3 mm up to 6 mm. No hydronephrosis. GI Tract: No bowel dilation. Moderately large stool burden. Lymph Nodes: No lymphadenopathy. Mesentery/peritoneum: No ascites. Retroperitoneum: No mass. Vasculature: Arterial atherosclerotic disease without aneurysm. Pelvis: No mass or ascites. Bones/Soft Tissues: Mild degenerative changes. Lower thorax: Transvenous pacemaker lead/AICD with distal tip in the right ventricle. Instrumentation Instructor (topogram) images: No additional findings. Result History CT ABD/PEL WO [facility] (Order #[id number]) on 06/12/2022 - Order Result History Report A/P ASSESSMENT/PLAN: 1. Chronic constipation - ICD9: 564.00, ICD10: K59.09 (primary diagnosis) - discussed taking Mirilax on a daily basis along with adequate water intake. 2. LLQ pain - ICD9: 789.04, ICD10: R10.32 - suspect related to problem #1. CT was normal. However if persists with improved BM's may need a repeat colonoscopy. The only abdominal procedure she has had is an appendectomy. Patient to My chart me in the next few weeks about the Miralax and her BM's. Alton Eisenberg MD documented in this encounter [facility] 06-12-2022 Miscellaneous Notes Spoke with pt and scheduled with Dr Eisenberg tomorrow. Sandy Ritchie LPN Can set up follow up for reassessment. Kelsie Doshi PA-C Patient returned call and given provider's message below. Pt reports her lower quadrant pain continues. It comes and goes and she states it is spreading more-to around her naval area and to the left. States pain is sharp and burning. Worse at night. Asking for any further advise. Thank you. TC to pt. LM to call office, ask for triage nurse to get results. Saray Billings LPN Let patient know that her CT scan shows some renal stones but they are not in an area that would be causing her pain (I.e no signs of obstruction or inflammation). The rest of the CT scan was okay. documented in this encounter [facility] 05-24-2022 Miscellaneous Notes Pt notified of results via [employer]. Olga Qiu Ma ----- Message from Kelsie Doshi PA-C sent at 05/24/2022 1:18 PM EDT ----- Labs overall look okay. No signs of infection or severe inflammation. Liver enzymes are normal. Cholesterol has improved. Will continue lipitor at just 10mg for now. documented in this encounter [facility] 05-24-2022 Miscellaneous Notes Schedulers please call pt to set up CT Yeni Herrera Cma CT placed. Patient notified and verbalized understanding. She states the pain is the same today, shw would like to proceed with the CT if you recommend it be done Yeni Herrera Cma Let patient know that she does have moderate amount of stool burden noted on xray. There was also a possible kidney stone on left side but it doesn't appear to be in the ureter so I wouldn't suspect that to be the main cause of the pain. With that being said, if the pain is changing/worsening and not improving, we may need to do the CT scan to further assess it. Thanks. Kelsie Doshi PA-C documented in this encounter [facility] 05-23-2022 History of Present illness Narrative Radiology Service Progress Note PATIENT NAME: Chris Ricardo DATE OF SERVICE: May 23, 2022 TIME: 1:04 PM PATIENT IDENTITY VERIFICATION COMPLETED USING TWO (2) IDENTIFIERS: Name and Date of confirmed by patient verbally. FALL SCREENING: Has the patient had 2 falls in the last year or 1 fall with injury or currently using an Ambulatory Assistive Device (Walker, Cane, Wheelchair, Crutches, etc.)? No PATIENT GENDER DATA: Female. status: : No status: NO. PATIENT RELEVANT IMPLANT DATA REVIEWED: Not Applicable RADIOLOGY DEPARTMENT: General X-ray: Exam(s) Completed: Abdomen X-Ray: Abdomen PERIPHERAL IV DATA: Not applicable SIGNED BY: RT Nicholas(R) May 23, 2022 1:04 PM documented in this encounter [facility] 05-23-2022 History of Present illness Narrative Chief Complaint Patient presents with: Constipation Abdominal Pain HPI Chris Ricardo is a 62 year old female who presents here today for Above Complaints.. Patient states for the past 2 months she has had some increased issues with constipation and over the past few days she has noted increased lower abdominal pain. Pain is not constant. Worse at night. Sharp burning pain. During the day it is mild and intermittent. She has notice mucus at times. But not always. She does have hx of constipation/diarrhea. But this is different. Last colonoscopy was in 2018. Past medical history, appointments, medications, allergies reviewed. Previous Medical History PAST MEDICAL HISTORY Diagnosis Date Abnormal mole AK (actinic keratosis) 10/17/2020 Arrhythmogenic right ventricular cardiomyopathy (HCC) 01/14/2017 Cardiomyopathy. Has a pace maker/defibulator. Is limited to what exercising she can do. Bee sting allergy 04/05/2020 Benign neoplasm of colon 04/16/2010 Tubular adenoma 04/16/12 Cataracts, bilateral Chronic left shoulder pain 05/28/2018 Compound nevus 11/27/2020 Abd LLQ removed 11/2020 Depression with anxiety 07/09/2017 Situational, Managed by Counseling. Diffuse cystic mastopathy Family history of breast cancer 07/04/2016 Family history of malignant neoplasm of breast 05/07/2007 2 maternal aunts History of COVID-19 03/25/202201/2022 Insomnia, unspecified rare Left shoulder pain 03/11/2011 Low testosterone level in female 2010 Mixed hyperlipidemia 2006 was on simvastatin, was able to come off med. Nonrheumatic tricuspid valve regurgitation 01/31/2022 Osteopenia ++FHx osteoporosis Peroneal tendinitis of left lower extremity 08/27/2017 Personal history of colonic polyps 04/21/2013 tubular adenoma. Plantar fasciitis of left foot 08/27/2017 Plantar fasciitis of right foot 07/18/2016 Presence of combination internal cardiac defibrillator (ICD) and pacemaker 01/14/2017 Ptosis, left eyelid benign PTSD (post-traumatic stress disorder) 08/13/2018 Unspecified closed fracture of ankle 2001 Ankle fracture left [place], [place] Urge incontinence Previous Surgical History PAST SURGICAL HISTORY Procedure Laterality Date APPENDECTOMY 1970 [place], [place] BLEPHAROPLASTY, UPPER EYELID Left 2016 BREAST BIOPSY 2006 left breast ([facility]) CARDIAC CATH 01/05/2017 normal COLONOSCOPY 04/27/13 normal, repeat in 5 yrs d/t pers hx polyps and poss fam hx gi malignancy COLONOSCOPY 05/04/2018 repeat 10 yrs, Dr. Hatfield COLSC FLX W/RMVL OF TUMOR POLYP LESION SNARE TQ 04/16/10 tubular adenoma at 70cm DILATION & CURETTAGE DX&/THER NONOBSTETRIC 09/2008 Dilation & curettage, Uterine Ablation with Novasure LEAD,PACEMAKER/DEFIB COMBO 01/06/2017 NOVASURE 09/2008 PRK Bilateral 01/2002 in [place] RADIOFREQUENCY ABLATION 01/03/2017 TONSILLECTOMY PRIMARY/SECONDARY <AGE 12 1970 Tonsillectomy [place], [place] Family History FAMILY HISTORY Problem Relation Age of Onset Hypertension Mother dx age 30's Headache Mother Osteoporosis Mother Cataract Mother Lipids Mother Dementia Mother Alzheimer's Disease Father first symptoms around 70 Diabetes Father late 70's Hypertension Father Lipids Father Arthritis Father Cataract Father other (Abdominal Aortic Aneurysm) Maternal Grandmother Diabetes Paternal Grandmother Cancer Paternal Grandfather unknown Skin Cancer Daughter Breast Cancer Maternal Aunt x2 other (Abdominal Aortic Aneurysm) Maternal Aunt x2 Osteoporosis Maternal Aunt Osteoporosis Maternal Aunt Osteoporosis Maternal Aunt Osteoporosis Maternal Aunt other (Abdominal Aortic Aneurysm) Maternal Uncle Osteoporosis Maternal Uncle Osteoporosis Maternal Uncle Osteoporosis Maternal Uncle Osteoporosis Maternal Uncle Colon Cancer Other none other (cousin of blood clot; had dm, af and etoh) Other Patient Allergies ALLERGIES Allergen Reactions Bee Sting Swelling Current Medications Current Outpatient Medications on File Prior to Visit Medication Sig metoprolol succinate ER (TOPROL XL) 25 mg 24 hr tablet Take 1 tablet by mouth once daily. famotidine (PEPCID) 20 mg tablet Take 1 tablet by mouth at bedtime as needed. atorvastatin (LIPITOR) 10 mg tablet Take 1 tablet by mouth daily at bedtime. For cholesterol. furosemide (LASIX) 20 mg tablet Take 1 tablet by mouth once daily as needed. EPINEPHrine (AUVI-Q) 0.3 mg/0.3 mL auto-injector Inject 0.3 mL intramuscularly as needed. glucosamine/chondr barrera A sod (OSTEO BI-FLEX ORAL) Take by mouth. CALCIUM-VITAMIN D3 ORAL Take by mouth. 1200 calcium- 1000 units D3 EPINEPHrine (EPIPEN) 0.3 mg/0.3 mL auto-injector Use as directed after bee sting if you develop shortness of breath, chest tightness of difficulty swallowing. acetaminophen (TYLENOL) 500 mg tablet Take 500 mg by mouth every 6 hours as needed. multivitamin ORAL tablet Take 1 tablet by mouth once daily. aspirin 81 mg ORAL Chew Take one(1) tablet daily. Current Facility-Administered Medications on File Prior to Visit Medication perflutren lipid microspheres 1.3 mL in NaCl (PF) 0.9% 10 mL injection (DEFINITY) sodium chloride 0.9 % (flush) 10 mL (BD POSIFLUSH) perflutren lipid microspheres 1.3 mL in NaCl (PF) 0.9% 10 mL injection (DEFINITY) sodium chloride 0.9 % (flush) 10 mL (BD POSIFLUSH) Social History Social History Tobacco Use Smoking status: Former Packs/day: 0.50 Years: 10.00 Pack years: 5.00 Types: Cigarettes Quit date: 08/04/1988 Years since quittin.8 Smokeless tobacco: Never Tobacco comments: quit 32 years ago Vaping Use Vaping Use: Never used Substance Use Topics Alcohol use: No Drug use: No Review of Symptoms REVIEW OF SYSTEMS See hpi EXAM: BP 118/74 Pulse 62 Temp 36.8 C (98.2 F) Resp 14 Wt 69.4 kg (153 lb) LMP 09/29/2008 BMI 25.86 kg/m General Appearance: Well appearing, alert, in no acute distress, well-hydrated, well nourished.. Lungs: Lungs clear to auscultation. No wheezing, rhonchi, rales.. Heart: RRR without murmur, gallop, or rubs. No ectopy. Abdomen: BS+. Mild pain of left lower abdomen.. Health Maintenance List COVID-19 VACCINE(5 - Booster for Moderna series) due on 01/24/2022 INFLUENZA(1) due on 04/04/2022 MAMMOGRAM due on 09/20/2022 PAP TESTING due on 09/10/2024 HPV TESTING due on 09/10/2024 DIABETES SCREEN due on 02/01/2025 LIPID SCREEN due on 02/01/2027 DTAP,TDAP,TD(3 - Td or Tdap) due on 03/26/2027 COLORECTAL CANCER SCREENING due on 05/04/2028 HEPATITIS C SCREENING Completed SHINGRIX VACCINE Completed HIV SCREENING Discontinued Data reviewed ASSESSMENT/PLAN: 1. Acute constipation - ICD9: 564.00, ICD10: K59.00 (primary diagnosis) Check xray Check labs. Continue stool laxative. - CBC + DIFF - SED RATE WESTERGREN - C-REACTIVE PROTEIN (CRP) - COMP METABOLIC PANEL - XR ABDOMEN 1V SUPINE 2. Left lower quadrant abdominal pain - ICD9: 789.04, ICD10: R10.32 - ddx inclued constipation, diverticulitis, colitis. Check xray and labs. - CBC + DIFF - SED RATE WESTERGREN - C-REACTIVE PROTEIN (CRP) - COMP METABOLIC PANEL - XR ABDOMEN 1V SUPINE 3. Mixed hyperlipidemia - ICD9: 272.2, ICD10: E78.2 - LIPID PANEL, NONFASTING Kelsie Doshi PA-C documented in this encounter [facility] 05-22-2022 Miscellaneous Notes TC to patient who verbalizes understanding of providers message below. Pt has no questions at this time. ISA Aviles Let patient know that DXA still shows osteopenia, however there has been mild improvement. Cont current management. Thanks. Kelsie Doshi PA-C documented in this encounter [facility] 05-22-2022 History of Present illness Narrative Radiology Service Progress Note PATIENT NAME: Chris Ricardo DATE OF SERVICE: May 22, 2022 TIME: 9:36 AM PATIENT IDENTITY VERIFICATION COMPLETED USING TWO (2) IDENTIFIERS: Name and Date of confirmed by patient verbally. FALL SCREENING: Has the patient had 2 falls in the last year or 1 fall with injury or currently using an Ambulatory Assistive Device (Walker, Cane, Wheelchair, Crutches, etc.)? No PATIENT GENDER DATA: Female. status: : No status: NO. PATIENT RELEVANT IMPLANT DATA REVIEWED: Not Applicable RADIOLOGY DEPARTMENT: Bone Density PERIPHERAL IV DATA: Not applicable SIGNED BY: RT Marta(R) May 22, 2022 9:36 AM documented in this encounter [facility] 05-20-2022 Miscellaneous Notes Call from patient requesting refill. Requested Prescriptions Pending Prescriptions Disp Refills metoprolol succinate ER (TOPROL XL) 25 mg 24 hr tablet 90 tablet 3 Sig: Take 1 tablet by mouth once daily. Patient last seen 01/31/22 Josselin Hudson documented in this encounter [facility] 05-15-2022 Miscellaneous Notes Patient has been identified by name and date of : Yes Patient phones for refill(s): Requested Prescriptions Pending Prescriptions Disp Refills famotidine (PEPCID) 20 mg tablet 90 tablet 1 Sig: Take 1 tablet by mouth at bedtime as needed. Date of last office visit in primary care: 03/25/22 next apt 10/09/22 Last 2 Encounter Wt Readings: Date: Wt: 03/25/2022 68.9 kg (152 lb) 01/31/2022 70.3 kg (155 lb) Previous labs/tests for medication: Not applicable Thank you. Shae Talbot LPN documented in this encounter [facility] 03-29-2022 Miscellaneous Notes The following approved medication requests have been transmitted electronically. Requested Prescriptions Signed Prescriptions Disp Refills betamethasone dipropionate, augmented (DIPROLENE) 0.05 % cream 15 g 0 Sig: Apply to rash areas twice a day for next 7-14 days. Alton Eisenberg MD documented in this encounter [facility] 03-25-2022 Instructions Alton Eisenberg MD - 03/25/2022 4:25 PM EDT Get non-fasting labs on or after 06/25/2022. Please get labs done on or after 09/13/2022 prior to your next visit. documented in this encounter [facility] 03-25-2022 History of Present illness Narrative Chief Complaint Patient presents with: Physical HPI Chris Ricardo is a 62 year old female who presents here today for Physical. Patient with hx of Arrhythmogenic right ventricular cardiomyopathy, depression with anxiety, hyperlipidemia, insomnia, osteopenia as well as those reviewed and addressed below and in ROS. 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 Much happier with her two new physicians. Patient has been doing ok. Will be visiting her daughter in the next week. BP at home has been 105-113/67-79 Past medical history, appointments, medications, allergies reviewed. Previous Medical History PAST MEDICAL HISTORY Diagnosis Date Abnormal mole AK (actinic keratosis) 10/17/2020 Arrhythmogenic right ventricular cardiomyopathy (HCC) 01/14/2017 Cardiomyopathy. Has a pace maker/defibulator. Is limited to what exercising she can do. Bee sting allergy 04/05/2020 Benign neoplasm of colon 04/16/2010 Tubular adenoma 04/16/12 Cataracts, bilateral Chronic left shoulder pain 05/28/2018 Compound nevus 11/27/2020 Abd LLQ removed 11/2020 Depression with anxiety 07/09/2017 Situational, Managed by Counseling. Diffuse cystic mastopathy Family history of breast cancer 07/04/2016 Family history of malignant neoplasm of breast 05/07/2007 2 maternal aunts Insomnia, unspecified rare Left shoulder pain 03/11/2011 Low testosterone level in female 2010 Mixed hyperlipidemia 2005 was on simvastatin, was able to come off med. Osteopenia ++FHx osteoporosis Peroneal tendinitis of left lower extremity 08/27/2017 Personal history of colonic polyps 04/21/2013 tubular adenoma. Plantar fasciitis of left foot 08/27/2017 Plantar fasciitis of right foot 07/18/2016 Presence of combination internal cardiac defibrillator (ICD) and pacemaker 01/14/2017 Ptosis, left eyelid benign PTSD (post-traumatic stress disorder) 08/13/2018 Unspecified closed fracture of ankle 2000 Ankle fracture left [place], [place] Urge incontinence Previous Surgical History PAST SURGICAL HISTORY Procedure Laterality Date APPENDECTOMY 1970 [place], [place] BLEPHAROPLASTY, UPPER EYELID Left 2017 BREAST BIOPSY 2006 left breast ([facility]) CARDIAC CATH 01/05/2017 normal COLONOSCOPY 04/27/13 normal, repeat in 5 yrs d/t pers hx polyps and poss fam hx gi malignancy COLONOSCOPY 05/04/2018 repeat 10 yrs, Dr. Hatfield COLSC FLX W/RMVL OF TUMOR POLYP LESION SNARE TQ 04/16/10 tubular adenoma at 70cm DILATION & CURETTAGE DX&/THER NONOBSTETRIC 09/2008 Dilation & curettage, Uterine Ablation with Novasure LEAD,PACEMAKER/DEFIB COMBO 01/06/2017 NOVASURE 09/2008 PRK Bilateral 01/2002 in [place] RADIOFREQUENCY ABLATION 01/03/2017 TONSILLECTOMY PRIMARY/SECONDARY <AGE 12 1970 [place]illectomy [place], [place] Family History FAMILY HISTORY Problem Relation Age of Onset Hypertension Mother dx age 30's Headache Mother Osteoporosis Mother Cataract Mother Lipids Mother Dementia Mother Alzheimer's Disease Father first symptoms around 70 Diabetes Father late 70's Hypertension Father Lipids Father Arthritis Father Cataract Father other (Abdominal Aortic Aneurysm) Maternal Grandmother Diabetes Paternal Grandmother Cancer Paternal Grandfather unknown Skin Cancer Daughter Breast Cancer Maternal Aunt x2 other (Abdominal Aortic Aneurysm) Maternal Aunt x2 Osteoporosis Maternal Aunt Osteoporosis Maternal Aunt Osteoporosis Maternal Aunt Osteoporosis Maternal Aunt other (Abdominal Aortic Aneurysm) Maternal Uncle Osteoporosis Maternal Uncle Osteoporosis Maternal Uncle Osteoporosis Maternal Uncle Osteoporosis Maternal Uncle Colon Cancer Other none other (cousin of blood clot; had dm, af and etoh) Other Patient Allergies ALLERGIES Allergen Reactions Bee Sting Swelling Current Medications Current Outpatient Medications on File Prior to Visit Medication Sig furosemide (LASIX) 20 mg tablet Take 1 tablet by mouth once daily as needed. metoprolol succinate ER (TOPROL XL) 25 mg 24 hr tablet Take 1 tablet by mouth once daily. EPINEPHrine (AUVI-Q) 0.3 mg/0.3 mL auto-injector Inject 0.3 mL intramuscularly as needed. famotidine (PEPCID) 20 mg tablet Take 1 tablet by mouth at bedtime as needed. glucosamine/chondr barrera A sod (OSTEO BI-FLEX ORAL) Take by mouth. CALCIUM-VITAMIN D3 ORAL Take by mouth. 1200 calcium- 1000 units D3 EPINEPHrine (EPIPEN) 0.3 mg/0.3 mL auto-injector Use as directed after bee sting if you develop shortness of breath, chest tightness of difficulty swallowing. acetaminophen (TYLENOL EXTRA STRENGTH) 500 mg tablet Take 500 mg by mouth every 6 hours as needed. multivitamin ORAL tablet Take 1 tablet by mouth once daily. aspirin 81 mg ORAL Chew Take one(1) tablet daily. Current Facility-Administered Medications on File Prior to Visit Medication perflutren lipid microspheres 1.3 mL in NaCl (PF) 0.9% 10 mL injection (DEFINITY) sodium chloride 0.9 % (flush) 10 mL (BD POSIFLUSH) perflutren lipid microspheres 1.3 mL in NaCl (PF) 0.9% 10 mL injection (DEFINITY) sodium chloride 0.9 % (flush) 10 mL (BD POSIFLUSH) Social History Social History Tobacco Use Smoking status: Former Packs/day: 0.50 Years: 10.00 Pack years: 5.00 Types: Cigarettes Quit date: 08/04/1988 Years since quittin.6 Smokeless tobacco: Never Tobacco comments: quit 32 years ago Vaping Use Vaping Use: Never used Substance Use Topics Alcohol use: No Drug use: No Review of Symptoms REVIEW OF SYSTEMS GENERAL: No unintentional weight loss, malaise or fevers HEENT: Negative for frequent or significant headaches, No changes in hearing or vision, no nose bleeds or other nasal problems NECK: Negative for lumps, goiter, pain and significant neck swelling RESPIRATORY: Negative for cough, hemoptysis, wheezing, COPD, dyspnea or shortness of breath CARDIOVASCULAR: Negative for chest pain, increased leg swelling, hypertension, CHF or palpitations GI: No nausea, vomiting, or diarrhea, No heartburn or reflux symptoms, and no blood : No history of dysuria, blood MUSCULOSKELETAL: Negative for joint pain or swelling, back pain or muscle pain SKIN: Has a rash that has been itchy and using an anti-ich med and is resolving. Has a lesion on the front and back of the right upper arm that are irritated at times PSYCH: Negative for sleep disturbance, mood disorder and recent psychosocial stressors HEMATOLOGY/LYMPHOLOGY: Negative for prolonged bleeding, bruising easily or swollen nodes ENDOCRINE: Negative for cold or heat intolerance, polyuria, polydipsia and goiter NEURO: No history of headaches, syncope, paralysis, seizures or tremors EXAM: BP 112/78 (BP Site: Right Arm, BP Position: Sitting, BP Cuff Size: Regular Adult) Pulse 60 Resp 16 Ht 163.8 cm (5' 4.5) Wt 68.9 kg (152 lb) LMP 09/29/2008 BMI 25.69 kg/m Last 5 Encounter Wt Readings: Date: Wt: 03/25/2022 68.9 kg (152 lb) 01/31/2022 70.3 kg (155 lb) 01/11/2022 70.9 kg (156 lb 3.2 oz) 01/01/2022 71.1 kg (156 lb 12.8 oz) 11/01/2021 69 kg (152 lb 3.2 oz) General Appearance: Well appearing, alert, in no acute distress, well-hydrated, well nourished.. Skin: Skin color, texture, turgor normal, no suspicious rashes. Has a small irritated growth on the front and back of the right arm possible AK's Head: Normocephalic, no masses, lesions, tenderness or abnormalities. Eyes: Anicteric sclera. Pupils are equally round and reactive to light. Extraocular movements are intact. . Ears: External ears, TM's normal, canals clear. Neck: Supple, no adenopathy; thyroid symmetric, normal size, no bruits. Lungs: Lungs clear to auscultation. No wheezing, rhonchi, rales.. Heart: RRR without murmur, gallop, or rubs. No ectopy. Abdomen: Normal abdominal exam, Abdomen soft, non-tender. Bowel sounds normal. No masses, organomegaly. Extremities: No deformities, edema, skin discoloration. Good capillary refill. . Musculoskeletal: Muscular strength intact, No joint swelling, deformity, or tenderness. Peripheral Pulses: Normal. Neurologic: Gait normal. Reflexes normal and symmetric. Sensation to light touch and crainal nerves 2-12 intact.. Health Maintenance List INFLUENZA(1) due on 04/04/2022 MAMMOGRAM due on 09/20/2022 PAP TESTING due on 09/10/2024 HPV TESTING due on 09/10/2024 DIABETES SCREEN due on 02/01/2025 LIPID SCREEN due on 02/01/2027 DTAP,TDAP,TD(3 - Td or Tdap) due on 03/26/2027 COLORECTAL CANCER SCREENING due on 05/04/2028 HEPATITIS C SCREENING Completed SHINGRIX VACCINE Completed COVID-19 VACCINE Completed HIV SCREENING Discontinued Data reviewed Component Latest Ref Rng & Units 10/02/2021 02/01/2022 Protein, Total 6.3 - 8.0 g/dL 6.7 Albumin 3.9 - 4.9 g/dL 4.2 Calcium 8.5 - 10.2 mg/dL 9.8 9.3 Bilirubin, Total 0.2 - 1.3 mg/dL 0.3 Alkaline Phosphatase 34 - 123 U/L 74 AST 13 - 35 U/L 24 ALT 7 - 38 U/L 20 Glucose 74 - 99 mg/dL 105 (H) 52 (L) BUN 7 - 21 mg/dL 22 (H) 16 Creatinine 0.58 - 0.96 mg/dL 0.88 0.87 Sodium 136 - 144 mmol/L 138 142 Potassium 3.7 - 5.1 mmol/L 3.9 4.0 Chloride 97 - 105 mmol/L 102 103 CO2 22 - 30 mmol/L 27 28 Anion Gap 9 - 18 mmol/L 9 11 eGFR >=60 mL/min/1.73m 75 76 Color Yellow Light Yellow Clarity Clear Clear Glucose, Urine Negative Negative Bilirubin, Urine Negative Negative Ketones, Urine Negative Negative Specific [place], Ur 1.005 - 1.030 1.013 Hemoglobin/Blood,Ur Negative 3+ (A) pH, Urine 5.0 - 8.0 6.0 Protein, Urine Negative Negative Urobilinogen Negative Negative Nitrites Negative Negative Leukest Negative Negative WBC, Urine 0-5 /HPF 0-5 /HPF RBC, Urine 0-3 /HPF >25 /HPF (A) Total Cholesterol, Nonfasting <200 mg/dL 214 (H) 215 (H) Triglycerides, Nonfasting <150 mg/dL 166 (H) 216 (H) HDL Cholesterol, Nonfasting >39 mg/dL 49 41 LDL Cholesterol, Nonfasting <100 mg/dL 132 (H) 131 (H) Non HDL Cholesterol, Nonfasting <130 mg/dL 165 (H) 174 (H) VLDL Cholesterol, Nonfasting <30 mg/dL 33 (H) 43 (H) Total Chol/HDL Ratio, Nonfasting <5.10 mg/dL 4.37 5.24 (H) LDL/HDL Ratio, Nonfasting <2.54 mg/dL 2.69 (H) 3.20 (H) Hemoglobin A1C 4.3 - 5.6 % 5.3 Estimated Average Glucose mg/dL 105 A/P ASSESSMENT/PLAN: 1. Well adult exam - ICD9: V70.0, ICD10: Z00.00 (primary diagnosis) - Counseled on healthy diet and regular exercise - Calcium intake with supplements or by diet of 1000 mg/day for under 50, 9568-4383 mg/day for 50+ - Follow up for annual exam in one year 2. Mixed hyperlipidemia - ICD9: 272.2, ICD10: E78.2 - suboptimal control - Begin treatment with atorvastatin (Lipitor) 10 mg, in 3 months check lipid and LFT's 3. Depression with anxiety - ICD9: 300.4, ICD10: F41.8 - clinically stable 4. PTSD (post-traumatic stress disorder) - ICD9: 309.81, ICD10: F43.10 - as per #3 5. Arrhythmogenic right ventricular cardiomyopathy (HCC) - ICD9: 425.4, ICD10: I42.8 - management per cardio - LIPID PANEL, NONFASTING 6. 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 Sinus node dysfunction (HCC) - ICD9: 427.81, ICD10: I49.5 - pace maker in place and seeing cardio. 8. Osteopenia, unspecified location - ICD9: 733.90, ICD10: M85.80 - set up for BMD AP Spine and Hip Unilateral - Reviewed the need for Calcium and Vitamin D supplements and weight bearing exercise as tolerated 9. AK (actinic keratosis) - ICD9: 702.0, ICD10: L57.0 - discussed cryo Tx with patient who gave verbal consent. Both areas treated with Cryo with a 40 sec thaw phase. Patient tolerated well. Requested Prescriptions Signed Prescriptions Disp Refills atorvastatin (LIPITOR) 10 mg tablet 90 tablet 1 Sig: Take 1 tablet by mouth daily at bedtime. For cholesterol. F/u 6 months check lipid, CMP prior Alton Eisenberg MD documented in this encounter [facility] 01-31-2022 Instructions Dave Alcala MD - 01/31/2022 10:21 AM EDT 1. We are starting Lasix 20mg daily as needed 2. Continue your Toprol XL 3. We are checking lab work 4. Follow-up with Dr. Alcala with labs and echocardiogram in 6 months. documented in this encounter [facility] 01-31-2022 History of Present illness Narrative Images from the original note were not included. Heart and Vascular [facility] For Heart Failure SECTION OF HEART FAILURE and CARDIAC TRANSPLANT MEDICINE OUTPATIENT VISIT DATE January 31, 2022 OUTPATIENT VISIT TYPE Consultation PRIMARY CARE PHYSICIAN: Alton Eisenberg [address] [place] [address] CHIEF COMPLAINT: Leg swelling NURSING INTAKE (Patient s concerns and/or recent hospitalizations/ER visits): Chris Ricardo is being referred by Dr. Tucker for a diagnosis of Arrhythmogenic right ventricular cardiomyopathy; AICD HF Nursing Assessment: Interim Hospitalizations and/or ER visits: Chest Pain: no Skipping or irregular heartbeats: no Shortness of breath at rest: no Shortness of breath with activity: only with exertion at times, she does walk 2-3 miles per day, and gets a little bit sob with any inclines in the sidewalk Cough: yes, dry / while during covid had a wet productive cough Waking up in the middle of the night gasping for air: no Lightheadedness or dizziness: yes, sometimes if she bends/ squats down for long periods of time Feeling like you are going to pass out: no Actually passing out: no Poor energy level: not what it used to be, but does try to stay active Unintentional weight gain: no Unintentional weight loss: no Swelling in your legs,feet, abdomen: yes, BLE Filling up quickly when you eat: no HISTORY OF PRESENT ILLNESS: Ms. Ricardo is 61 year old female with history of ARVC (PKP2 mutation), right ventricular dilation, moderate tricuspid regurgitation, VT s/p ICD and PTSD who presents with consultative visit in heart failure clinic. Consultation requested by Dr. Tucker for an opinion regarding ARVC. My final recommendations will be communicated back to the requesting physician by way of shared Medical record or letter to requesting physician via US mail. Patient notes that he cardiac history started in 1993. She had a work-up in the at that time due to recurrent lightheadedness/dizziness. She was found to have sinus bradycardia at that time. Stress test, echocardiogram, nuclear testing was normal. In 2000 as part of the she had traveled to [place] and had an episode of stress and went to see the doctor at that time and was found to have PACs. In 2016, her daughter was about to graduate from college and she was training for a hiking trip in [place]. The night before she left she woke up with chest pressure and nausea/vomiting. She called 911 and went [place]. She was found to be in sustained VT with LBBB. She underwent comprehensive testing including a heart cath and cardiac MRI. There was no significant CAD but an area of akinesis on her MRI concerning for ARVC. She underwent and EP procedure 01/03/2017 and the were able to modify an area of scar of the inferior, free wall and inferoseptum of the RV. Though the VT was not eliminated, it was modified. Reportedly, the VT was not pace terminable prior to but was after the procedure. She had a dual chamber ICD implant 01/06/2017 MDT MRI and has done well from an arrhythmia perspective on beta el. She was originally on Toprol XL 50mg but had lethargy. But she was able to tolerate Toprol XL 25mg daily. Genetic testing + PKP2. She notes feeling well and but generally is able to stay active but does have to take an occasional nap. She follows with Dr. Tucker for her VT. She has never had an ICD shocks. She has had swelling in her thighs and lower abdomen. She notes this is correlated to when she goes out to eat and has a lot of salt. Denies any orthopnea, PND, lightheadedness/dizziness, or syncope. PAST MEDICAL HISTORY Diagnosis Date Abnormal mole AK (actinic keratosis) 10/17/2020 Arrhythmogenic right ventricular cardiomyopathy (HCC) 01/14/2017 Cardiomyopathy. Has a pace maker/defibulator. Is limited to what exercising she can do. Bee sting allergy 04/05/2020 Benign neoplasm of colon 04/16/2010 Tubular adenoma 04/16/12 Cataracts, bilateral Chronic left shoulder pain 05/28/2018 Compound nevus 11/27/2020 Abd LLQ removed 11/2020 Depression with anxiety 07/09/2017 Situational, Managed by Counseling. Diffuse cystic mastopathy Family history of breast cancer 07/04/2016 Family history of malignant neoplasm of breast 05/07/2007 2 maternal aunts Insomnia, unspecified rare Left shoulder pain 03/11/2011 Low testosterone level in female 2010 Mixed hyperlipidemia 2006 was on simvastatin, was able to come off med. Osteopenia ++FHx osteoporosis Peroneal tendinitis of left lower extremity 08/27/2017 Personal history of colonic polyps 04/21/2013 tubular adenoma. Plantar fasciitis of left foot 08/27/2017 Plantar fasciitis of right foot 07/18/2016 Presence of combination internal cardiac defibrillator (ICD) and pacemaker 01/14/2017 Ptosis, left eyelid benign PTSD (post-traumatic stress disorder) 08/13/2018 Unspecified closed fracture of ankle 2000 Ankle fracture left [place], [place] Urge incontinence PAST SURGICAL HISTORY Procedure Laterality Date APPENDECTOMY 1970 [place], [place] BLEPHAROPLASTY, UPPER EYELID Left 2017 BREAST BIOPSY 2006 left breast ([facility]) CARDIAC CATH 01/05/2017 normal COLONOSCOPY 04/27/13 normal, repeat in 5 yrs d/t pers hx polyps and poss fam hx gi malignancy COLONOSCOPY 05/04/2018 repeat 10 yrs, Dr. Hatfield COLSC FLX W/RMVL OF TUMOR POLYP LESION SNARE TQ 04/16/10 tubular adenoma at 70cm DILATION & CURETTAGE DX&/THER NONOBSTETRIC 09/2008 Dilation & curettage, Uterine Ablation with Novasure LEAD,PACEMAKER/DEFIB COMBO 01/06/2017 NOVASURE 09/2008 PRK Bilateral 01/2002 in [place] RADIOFREQUENCY ABLATION 01/03/2017 TONSILLECTOMY PRIMARY/SECONDARY <AGE 12 1970 Tonsillectomy [place], [place] SOCIAL HISTORY Social History Tobacco Use Smoking status: Former Smoker Packs/day: 0.50 Years: 10.00 Pack years: 5.00 Types: Cigarettes Quit date: 08/04/1988 Years since quittin.5 Smokeless tobacco: Never Used Tobacco comment: quit 32 years ago Vaping Use Vaping Use: Never used Substance Use Topics Alcohol use: No Drug use: No FAMILY HISTORY Problem Relation Age of Onset Hypertension Mother dx age 30's Headache Mother Osteoporosis Mother Cataract Mother Lipids Mother Dementia Mother Alzheimer's Disease Father first symptoms around 70 Diabetes Father late 70's Hypertension Father Lipids Father Arthritis Father Cataract Father other (Abdominal Aortic Aneurysm) Maternal Grandmother Diabetes Paternal Grandmother Cancer Paternal Grandfather unknown Skin Cancer Daughter Breast Cancer Maternal Aunt x2 other (Abdominal Aortic Aneurysm) Maternal Aunt x2 Osteoporosis Maternal Aunt Osteoporosis Maternal Aunt Osteoporosis Maternal Aunt Osteoporosis Maternal Aunt other (Abdominal Aortic Aneurysm) Maternal Uncle Osteoporosis Maternal Uncle Osteoporosis Maternal Uncle Osteoporosis Maternal Uncle Osteoporosis Maternal Uncle Colon Cancer Other none other (cousin of blood clot; had dm, af and etoh) Other ALLERGIES: ALLERGIES Allergen Reactions Bee Sting Swelling CURRENT MEDICATIONS: EPINEPHrine (AUVI-Q) 0.3 mg/0.3 mL auto-injector Inject 0.3 mL intramuscularly as needed. famotidine (PEPCID) 20 mg tablet Take 1 tablet by mouth at bedtime as needed. metoprolol succinate ER (TOPROL XL) 25 mg 24 hr tablet Take 1 tablet by mouth once daily. glucosamine/chondr barrera A sod (OSTEO BI-FLEX ORAL) Take by mouth. CALCIUM-VITAMIN D3 ORAL Take by mouth. 1200 calcium- 1000 units D3 EPINEPHrine (EPIPEN) 0.3 mg/0.3 mL auto-injector Use as directed after bee sting if you develop shortness of breath, chest tightness of difficulty swallowing. acetaminophen (TYLENOL EXTRA STRENGTH) 500 mg tablet Take 500 mg by mouth every 6 hours as needed. multivitamin ORAL tablet Take 1 tablet by mouth once daily. aspirin 81 mg ORAL Chew Take one(1) tablet daily. REVIEW OF SYSTEMS: CONSTITUTION: Negative for: Fever, Night sweats and Recent weight change HEENT: Negative for: Hearing loss RESPIRATORY: Positive for: Cough Negative for: Difficulty breathing GASTROINTESTINAL: Positive for: Abdominal distention Negative for: Melena, Nausea, Diarrhea and Early satiety MUSCULOSKELETAL: Negative for: Arthralgias and Myalgias NEUROLOGICAL: Positive for: Headaches and Dizziness SKIN: Negative for: Rash EYES: Negative for: Visual disturbance CARDIOVASCULAR: Positive for: Leg swelling Negative for: Chest pain, Arrhythmia and Pre-syncope GENITOURINARY: Negative for: Difficulty urinating PATIENT ENTERED DATA: KCCQ-12 Scores 01/24/2022 Physical Limitation Score 75 (Class II Heart Failure ) Symptom Frequency Score 91.67 (Class I Heart Failure ) Quality of Life Score 87.5 (Class I Heart Failure) Social Limitation Score 91.67 (Class I Heart Failure) Overall Summary Score 86.46 (Class I Heart Failure ) PHQ-9 10/15/2020 01/24/2022 Score 3 4 PROMIS Global Health - (T-Scores - the mean of general population = 50. Five points is a clinically meaningful difference.) 10/15/2020 04/17/2021 01/24/2022 Physical T-Score 54.1 47.7 54.1 Mental T-Score 53.3 56 59 PHYSICAL EXAMINATION: BP 126/80 Pulse 60 Ht 165.1 cm (5' 5) Wt 70.3 kg (155 lb) LMP 09/29/2008 SpO2 100% BMI 25.79 kg/m General: Well appearing, in no acute distress. Skin: No clubbing, no cyanosis. Eyes: Extra ocular movements intact Oropharynx: Teeth in good repair. Neck: No jugular venous distention, no carotid bruits, carotids have a normal upstroke, no palpable thyromegaly. Lungs: Clear to auscultation bilaterally, no wheezing or rhonchi. Heart: Regular rhythm, PMI not displaced, S1, S2 normal, no S3, no S4, no heaves, no rub and no murmur. Abdomen: Soft, nontender, bowel sounds normal, no palpable organomegaly, no bruits. Extremities: Trace peripheral edema . Grade 2/4 distal pulses bilaterally. Neuro: Oriented to person, place and time, alert, cooperative, gait coordinated. CARDIOVASCULAR MEDICINE TESTING: I have personally reviewed the Electrocardiogram, Laboratory Testing and Echocardiogram. Last EKG Result Conclusion ECG COMPLETE Collected: 11/01/2021 8:48 AM (Final result) Impression: ATRIAL-PACED RHYTHM WITH PROLONGED AV CONDUCTION LOW VOLTAGE QRS, CONSIDER PULMONARY DISEASE, PERICARDIAL EFFUSION, OR NORMAL VARIANT NONSPECIFIC T WAVE ABNORMALITY ABNORMAL ECG Confirmed by AMAURY TERRY MD ([id number]) on 11/05/2021 6:48:14 PM Complete Results Last ECHO Result Conclusion ECHO Collected: 12/04/2021 3:29 PM (Final result) Impression: CONCLUSIONS: - Exam indication: Arrhythmogenic right ventricular cardiomyopathy - The left ventricle is normal in size. Left ventricular systolic function is normal. EF = 59 5% (2D biplane) - The right ventricle is dilated. Right ventricular systolic function is moderately to severely decreased. Significant RV free wall hypokinesis. Relatively preserved RV apical motion - The right atrial cavity is dilated. - There is moderate (2+ - 3+) tricuspid valve regurgitation. - Estimated right ventricular systolic pressure is 33 mmHg consistent with normal pulmonary artery pressures. Estimated right atrial pressure is 8 mmHg based on IVC assessment. - The patient has not had a prior CC echocardiographic exam for comparison. * * * Final * * * Complete Results Glucose (mg/dL) Date Value 10/02/2021 105 10/04/2020 94 Potassium (mmol/L) Date Value 10/02/2021 3.9 10/04/2020 4.5 Sodium (mmol/L) Date Value 10/02/2021 138 10/04/2020 141 Chloride (mmol/L) Date Value 10/02/2021 102 10/04/2020 102 CO2 (mmol/L) Date Value 10/02/2021 27 10/04/2020 30 Creatinine (mg/dL) Date Value 10/02/2021 0.88 10/04/2020 0.90 BUN (mg/dL) Date Value 10/02/2021 22 10/04/2020 21 Anion Gap (mmol/L) Date Value 10/02/2021 9 10/04/2020 9 Calcium (mg/dL) Date Value 10/04/2020 9.5 Calcium, Total (mg/dL) Date Value 10/02/2021 9.8 Hemoglobin (g/dL) Date Value 07/26/2019 13.1 Hematocrit (%) Date Value 07/26/2019 42.9 WBC (k/uL) Date Value 07/26/2019 4.42 NT Pro BNP Date Value Ref Range Status 05/21/2019 145 (H) <125 pg/mL Final Cardiac MRI 01/06/2017: FINDINGS: The right ventricle is abnormally dilated. On the 4-chamber view at end diastole, the right ventricle measures 5.3 cm in cavitary diameter, while the left ventricle measures 4.7 cm. There is also straightening of the interventricular septum. Right ventricle appears mildly hypertrabeculated, although the free wall is suspected to be somewhat thinned. The dedicated ARVD protocol was not performed, and T1-weighted images were therefore not obtained to evaluate for fatty infiltration. On the short-axis cine images, there are several foci of bulging of the right ventricular free wall during systole, and there is also abnormal hypokinesis of the right ventricle with slight irregularity of the wall shown on the 4-chamber cine images. On delayed postcontrast images, there is suspected to be multifocal abnormal enhancement of the right ventricular myocardium, although there is artifact, limiting this determination. Right ventricular end-diastolic volume normalized to patient surface area of 1.79 meters squared is 134 milliliters/meter squared. Based on endocardial contours, the right ventricular ejection fraction is probably underestimated but appears to be significantly less than 40%. The left ventricle demonstrates normal myocardial thickness without left ventricular segmental wall motion abnormalities. Based on endocardial contours, the left ventricular ejection fraction is 56% with an end-diastolic volume of 157 mL (normal 52-141), and systolic volume of 69 mL (normal 13-51), and stroke volume 88 mL (normal 33-97). No definite abnormal left ventricular myocardial enhancement. There is a minimal amount of pericardial fluid. Small pleural effusions are present, right greater than left. IMPRESSION: Abnormal right ventricular dilatation with multifocal dyskinesis and decreased systolic function, as well as suspected foci of abnormal right ventricular enhancing fibrosis. MRI findings are suggestive of arrhythmogenic right ventricular cardiomyopathy/dysplasia and fulfill one major criterion according to 2010 task force criteria. [facility] 01/05/2017: LMCA within normal limits LMCA within normal limits No angiographic evidence of plaque in the LMCA, LAD, Circumflex or RCA systems. LAD within normal limits CIRC within normal limits RCA within normal limits TTE 01/04/2017: Left Ventricle: The left ventricular chamber size is normal. There is no left ventricular hypertrophy observed. Global left ventricular wall motion and contractility are within normal limits. There is normal left ventricular systolic function. The estimated ejection fraction is 55-60%. The ejection fraction is calculated to be 57% using the Method of Disks. No regional wall motion abnormalities are evident. Left Atrium: The left atrial chamber size is normal. A patent foramen ovale is not demonstrated by color Doppler. Right Ventricle: The right ventricular chamber size and systolic function are within normal limits. The right ventricular cavity size is normal. The right ventricular global systolic function is normal. Right Atrium: The right atrial cavity size is normal. Aortic Valve: The aortic valve is trileaflet. Mild aortic leaflet calcification is visualized. The aortic valve leaflets appear mildly sclerotic. There is no hemodynamically significant stenosis. There is a trace of aortic regurgitation. Mitral Valve: The mitral valve leaflets appear normal. There is mild mitral annular calcification. There is no evidence of mitral valve prolapse. There is no evidence of mitral stenosis. There is trivial physiological regurgitation of the mitral valve. Tricuspid Valve: The tricuspid valve leaflets are normal. There is mild tricuspid regurgitation. No pulmonary hypertension is noted. Pulmonic Valve: The pulmonic valve appears grossly normal in structure and function. Pericardium: There is no pericardial effusion. Aorta: The aortic root is normal in diameter. Venous: There is less than 50% respiratory change in the inferior vena cava dimension. IMPRESSION: Ms. Ricardo is 61 year old female with history of ARVC (PKP2 mutation), right ventricular dilation, moderate tricuspid regurgitation, VT s/p ICD and PTSD who presents with consultative visit in heart failure clinic. NYHA Functional Class: II Stage: C heart failure Target weight: 155lbs 1. ARVC 2. Right ventricular dilation 3. Tricuspid regurgitation 4. VT 5. PTSD Heart Failure specific medications (list current, note updates or changes, note prior intolerance): BB: Toprol XL 25mg daily (Did not tolerate 50mg daily) ACEI/ARB/ARNI: none MRA: none SGLT2: none Diuretic: Started Lasix 20mg daily PRN Digoxin: none Vasodilators: none Anti-arrhythmics: none Ivabradine: none Other anti-HTN: none PLAN AND RECOMMENDATIONS: 1. ARVC -NYHA functional class II, stage C, LVEF 59% -Etiology of heart failure is likely ARVC given prior MRI findings in 2016 and PKP2 mutation noted on genetic testing 03/2017. -Echocardiogram 12/04/2021 shows moderate RV dysfunction and moderate tricuspid regurgitation, compared to cardiac MRI in 2017 RV function has declined but unclear about duration of RV dysfunciton -Will check repeat echocardiogram in 6 months to reevalute RV function and TR. If TR worsens may consider transcather tricuspid intervention -Started Lasix 20mg daily PRN for leg swelling likely due to tricuspid regurgitation -Continue Toprol XL 25mg daily for prior history of VT and ARVC. Patient did not tolerate 50mg daily -No indication for ARNI/MRA/SLGT2 given normal LV function at this time. -No indication for advanced therapies at this time, but will continue to monitor RV function and signs of LV function going forward given known ARVC. Follow-up in 6 months with office visit and repeat echocardiogram. I personally interviewed, confirmed and edited the above information as obtained by others I personally spent 85 minutes in total time involved in the management and care of this patient. We discussed natural history of disease, current treatment options, and future potential treatment options. We discussed diet, exercise, other non-medical management as above. Dave Alcala MD [facility] Section Of Heart Failure and Cardiac Transplant Medicine Heart and Vascular [facility] [id number] [place] [address] documented in this encounter [facility] 01-11-2022 History of Present illness Narrative Subjective HPI HPI Chris Ricardo is a 61 year old female who presents today for CC of cough, congestion, sinus pressure, ear pressure, intermittent sob. This started 2 weeks ago, initially improved with amox rx greatly worsening past few days. Has tried otc medication for relief. Symptoms are worsened by nothing. Denies cp, n/v/d. .Patient presents with: Cough: Pt completed ATB, reported bilateral ear pain, intermittent SOB x2 wks PAST MEDICAL HISTORY Diagnosis Date Abnormal mole AK (actinic keratosis) 10/17/2020 Arrhythmogenic right ventricular cardiomyopathy (HCC) 01/14/2017 Cardiomyopathy. Has a pace maker/defibulator. Is limited to what exercising she can do. Bee sting allergy 04/05/2020 Benign neoplasm of colon 04/16/2010 Tubular adenoma 04/16/12 Cataracts, bilateral Chronic left shoulder pain 05/28/2018 Compound nevus 11/27/2020 Abd LLQ removed 11/2020 Depression with anxiety 07/09/2017 Situational, Managed by Counseling. Diffuse cystic mastopathy Family history of breast cancer 07/04/2016 Family history of malignant neoplasm of breast 05/07/2007 2 maternal aunts Insomnia, unspecified rare Left shoulder pain 03/11/2011 Low testosterone level in female 2010 Mixed hyperlipidemia 2005 was on simvastatin, was able to come off med. Osteopenia ++FHx osteoporosis Peroneal tendinitis of left lower extremity 08/27/2017 Personal history of colonic polyps 04/21/2013 tubular adenoma. Plantar fasciitis of left foot 08/27/2017 Plantar fasciitis of right foot 07/18/2016 Presence of combination internal cardiac defibrillator (ICD) and pacemaker 01/14/2017 Ptosis, left eyelid benign PTSD (post-traumatic stress disorder) 08/13/2018 Unspecified closed fracture of ankle 2000 Ankle fracture left [place], [place] Urge incontinence PAST SURGICAL HISTORY Procedure Laterality Date APPENDECTOMY 1970 [place], [place] BLEPHAROPLASTY, UPPER EYELID Left 2017 BREAST BIOPSY 2006 left breast ([facility]) CARDIAC CATH 01/05/2017 normal COLONOSCOPY 04/27/13 normal, repeat in 5 yrs d/t pers hx polyps and poss fam hx gi malignancy COLONOSCOPY 05/04/2018 repeat 10 yrs, Dr. Hatfield COLSC FLX W/RMVL OF TUMOR POLYP LESION SNARE TQ 04/16/10 tubular adenoma at 70cm DILATION & CURETTAGE DX&/THER NONOBSTETRIC 09/2008 Dilation & curettage, Uterine Ablation with Novasure LEAD,PACEMAKER/DEFIB COMBO 01/06/2017 NOVASURE 09/2008 PRK Bilateral 01/2002 in [place] RADIOFREQUENCY ABLATION 01/03/2017 TONSILLECTOMY PRIMARY/SECONDARY <AGE 12 1970 Tonsillectomy [place], [place] ALLERGIES Bee Sting MEDICATIONS famotidine (PEPCID) 20 mg tablet Take 1 tablet by mouth at bedtime as needed. metoprolol succinate ER (TOPROL XL) 25 mg 24 hr tablet Take 1 tablet by mouth once daily. glucosamine/chondr barrera A sod (OSTEO BI-FLEX ORAL) Take by mouth. CALCIUM-VITAMIN D3 ORAL Take by mouth. 1200 calcium- 1000 units D3 EPINEPHrine (EPIPEN) 0.3 mg/0.3 mL auto-injector Use as directed after bee sting if you develop shortness of breath, chest tightness of difficulty swallowing. acetaminophen (TYLENOL EXTRA STRENGTH) 500 mg tablet Take 500 mg by mouth every 6 hours as needed. multivitamin ORAL tablet Take 1 tablet by mouth once daily. aspirin 81 mg ORAL Chew Take one(1) tablet daily. amoxicillin-clavulanic acid (AUGMENTIN) 875-125 mg per tablet Take 1 tablet by mouth twice daily for 10 days. fluticasone (FLONASE) 50 mcg/actuation nasal spray Use 2 Sprays in each nostril once daily. Rinse mouth after use. FAMILY HISTORY Problem Relation Age of Onset Hypertension Mother dx age 30's Headache Mother Osteoporosis Mother Cataract Mother Lipids Mother Dementia Mother Alzheimer's Disease Father first symptoms around 70 Diabetes Father late 70's Hypertension Father Lipids Father Arthritis Father Cataract Father other (Abdominal Aortic Aneurysm) Maternal Grandmother Diabetes Paternal Grandmother Cancer Paternal Grandfather unknown Skin Cancer Daughter Breast Cancer Maternal Aunt x2 other (Abdominal Aortic Aneurysm) Maternal Aunt x2 Osteoporosis Maternal Aunt Osteoporosis Maternal Aunt Osteoporosis Maternal Aunt Osteoporosis Maternal Aunt other (Abdominal Aortic Aneurysm) Maternal Uncle Osteoporosis Maternal Uncle Osteoporosis Maternal Uncle Osteoporosis Maternal Uncle Osteoporosis Maternal Uncle Colon Cancer Other none other (cousin of blood clot; had dm, af and etoh) Other Social History Tobacco Use Smoking status: Former Smoker Packs/day: 0.50 Years: 10.00 Pack years: 5.00 Types: Cigarettes Quit date: 08/04/1988 Years since quittin.4 Smokeless tobacco: Never Used Tobacco comment: quit 32 years ago Vaping Use Vaping Use: Never used Substance Use Topics Alcohol use: No Drug use: No Review of Systems Constitutional: Positive for malaise/fatigue. Negative for fever. HENT: Positive for congestion, ear pain, sinus pain and sore throat. Negative for ear discharge and nosebleeds. Respiratory: Positive for cough and shortness of breath. Negative for wheezing. Cardiovascular: Negative for chest pain. Genitourinary: Negative for dysuria. Musculoskeletal: Negative for neck pain. Skin: Negative for itching and rash. Objective Blood pressure 126/88, pulse 83, temperature 37.1 C (98.7 F), resp. rate 18, weight 70.9 kg (156 lb 3.2 oz), last menstrual period 09/29/2008, SpO2 97 %. Physical Exam Constitutional: General: She is not in acute distress. Appearance: She is not toxic-appearing or diaphoretic. HENT: Head: Normocephalic and atraumatic. Right Ear: Hearing, ear canal and external ear normal. Tympanic membrane is bulging (fluid/bubbles seen. ). Tympanic membrane is not perforated or erythematous. Left Ear: Hearing, ear canal and external ear normal. Tympanic membrane is bulging (fluid/bubbles seen. ). Tympanic membrane is not perforated or erythematous. Nose: Nose normal. Mouth/Throat: Pharynx: Uvula midline. No pharyngeal swelling, oropharyngeal exudate, posterior oropharyngeal erythema or uvula swelling. Eyes: General: Lids are normal. No scleral icterus. Right eye: No discharge. Left eye: No discharge. Conjunctiva/sclera: Conjunctivae normal. Pupils: Pupils are equal, round, and reactive to light. Neck: Trachea: Trachea normal. Cardiovascular: Rate and Rhythm: Normal rate and regular rhythm. Heart sounds: Normal heart sounds. Pulmonary: Effort: Pulmonary effort is normal. Breath sounds: Normal breath sounds. Musculoskeletal: Cervical back: Normal range of motion and neck supple. Lymphadenopathy: Cervical: No cervical adenopathy. Right cervical: No superficial cervical adenopathy. Left cervical: No superficial cervical adenopathy. Skin: Findings: No rash. Neurological: Mental Status: She is alert and oriented to person, place, and time. ASSESSMENT/PLAN: 1. Sinobronchitis - ICD9: 473.9, 490, ICD10: J32.9, J40 - Will begin treatment with Augmentin 875 mg PO BID for 10 days - Supportive care with plenty of fluids, rest, and analgesia prn. - Follow up in 3-5 days if symptoms persist or worsen. -If you experience chest pain/shortness of breath go to ER - AMOXICILLIN 875 MG-POTASSIUM CLAVULANATE 125 MG TABLET - FLUTICASONE PROPIONATE 50 MCG/ACTUATION NASAL SPRAY,SUSPENSION - COVID WITH FLUA+B, ROUTINE Agrees to plan Thaddeus Campos APRN.GIULIA documented in this encounter [facility] 01-11-2022 Instructions Thaddeus Campos APRN.GIULIA - 01/11/2022 7:18 AM EDT ASSESSMENT/PLAN: 1. Sinobronchitis - ICD9: 473.9, 490, ICD10: J32.9, J40 - Will begin treatment with Augmentin 875 mg PO BID for 10 days - Supportive care with plenty of fluids, rest, and analgesia prn. - Follow up in 3-5 days if symptoms persist or worsen. Discussed quarantine, social distancing otc medications discussed Push fluids -If you experience chest pain/shortness of breath go to ER - AMOXICILLIN 875 MG-POTASSIUM CLAVULANATE 125 MG TABLET - FLUTICASONE PROPIONATE 50 MCG/ACTUATION NASAL SPRAY,SUSPENSION How to Manage Common Symptoms Associated with COVID for Adults Fever- Fever is a temperature over 100.4 F and can occur when the body is fighting an infection. To help treat a fever: Drink plenty of fluids and stay well hydrated. Eat small amounts of easy to digest food. Rest. Your body needs rest to recover, but getting up and moving around the house frequently is a good idea. You should try to continue doing your normal daily activities (bathing, toileting, grooming, cooking), though you will probably feel tired, and need to rest often. Avoid any heavy activity or exercise, as this will increase your body temperature. Dress in light clothing and stay covered in a light sheet. Keep the room temperature cool. Take a slightly warm (not cold or cool) bath, or apply damp washcloths to the forehead and wrists. Cough- Cough is a common symptom associated with COVID and can be bothersome. To help treat a cough: Stay well hydrated. Try warm water or tea with lemon and/or honey to help soothe the cough. Use a humidifier to add moisture to the air. Try a product with menthol, like a cough drop or a rub for your chest such as Vicks, which can help reduce cough. Try cough drops. Avoid smoking and other strong odors or perfumes. Try breathing exercises to keep your lungs open and clear. Take a big deep breath through your nose and hold for 5 seconds before slowly releasing. Repeat frequently, while you are awake. Congestion- Runny nose or nasal congestion can occur with COVID. Treatment can help relieve symptoms: Try OTC nasal saline spray, or nasal saline rinse to relieve mucus congestion. Nasal strips can help keep nasal passages open, to increase airflow. Elevating your head with an extra pillow in bed can help reduce congestion. Using a humidifier can increase moisture in the air, and make breathing easier. Sore Throat- Another common symptom with COVID, can be managed at home by: Stay well hydrated. Gargle with salt water mix teaspoon salt with 1 cup of warm water and gargle. This helps to loosen mucus in the back of the throat and may reduce discomfort. Try ice chips, popsicles or lozenges to soothe the throat. Nausea/Vomiting/Diarrhea- These are common symptoms, and staying hydrated is most important. If you are nauseous or vomiting, start with small sips of water every 10-15 minutes and increase as tolerated. You can try sucking an ice cube too. If tolerating, you can try pedialyte or Gatorade, or flat sprite or roxy-maribeth. Start slowly and increase as you are able to. Instead of meals, try smaller, more frequent snacks. Try eating bland foods like crackers, toast, rice, and applesauce. Avoid spicy, greasy or fried foods and dairy containing foods. Even if you aren't feeling hungry due to lack of smell or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 trends are normal. IMPLANT SITE/ SYMPTOMS: The incision and pocket are pain-free (0/10), well healed and without signs of erosion or infection. No arm swelling, syncope, pre-syncope or device related pocket stimulation. OTHER DIAGNOSTICS: Total V pacing <0.1%. PROGRAMMING CHANGES MADE TODAY: None. FOLLOW UP: q13 weeks remotes along with yearly in clinic evaluations. CATHERINE KAUR Stress Test 04/02/2019 CONCLUSIONS: 1. SPECT Perfusion Study: Normal. 2. There is no scintigraphic evidence for inducible ischemia. 3. No evidence of scarred myocardium. 4. Good functional capacity for age and gender. 5. Left ventricle is normal in size. The left ventricle systolic function is normal. 6. This is a low risk scan. Gated Stress FBP LVEF % 78 cMRI 01/06/2017 IMPRESSION: Review of outside MRI from 01/06/2017: Enlarged and globally hypokinetic right ventricle with ejection fraction of 36%. Regional RV wall motion abnormalities and multifocal areas of delayed enhancement. Echo 01/04/2017 Findings Procedure Info: The study quality is good. Reason For Study: Abnormal EKG. Left Ventricle: The left ventricular chamber size is normal. There is no left ventricular hypertrophy observed. Global left ventricular wall motion and contractility are within normal limits. There is normal left ventricular systolic function. The estimated ejection fraction is 55-60%. The ejection fraction is calculated to be 57% using the Method of Disks. No regional wall motion abnormalities are evident. Left Atrium: The left atrial chamber size is normal. A patent foramen ovale is not demonstrated by color Doppler. Right Ventricle: The right ventricular chamber size and systolic function are within normal limits. The right ventricular cavity size is normal. The right ventricular global systolic function is normal. Right Atrium: The right atrial cavity size is normal. Aortic Valve: The aortic valve is trileaflet. Mild aortic leaflet calcification is visualized. The aortic valve leaflets appear mildly sclerotic. There is no hemodynamically significant stenosis. There is a trace of aortic regurgitation. Mitral Valve: The mitral valve leaflets appear normal. There is mild mitral annular calcification. There is no evidence of mitral valve prolapse. There is no evidence of mitral stenosis. There is trivial physiological regurgitation of the mitral valve. Tricuspid Valve: The tricuspid valve leaflets are normal. There is mild tricuspid regurgitation. No pulmonary hypertension is noted. Pulmonic Valve: The pulmonic valve appears grossly normal in structure and function. Pericardium: There is no pericardial effusion. Aorta: The aortic root is normal in diameter. Venous: There is less than 50% respiratory change in the inferior vena cava dimension. HR 45 BP 120/75 ECG atrial paced 78 bpm low voltage, t wave inversion v1-v3 Last EKG Result Conclusion ECG COMPLETE Collected: 11/01/2021 8:48 AM (Preliminary result) Impression: ATRIAL-PACED RHYTHM WITH PROLONGED AV CONDUCTION LOW VOLTAGE QRS, CONSIDER PULMONARY DISEASE, PERICARDIAL EFFUSION, OR NORMAL VARIANT NONSPECIFIC T WAVE ABNORMALITY ABNORMAL ECG Complete Results IMPRESSION: 1. Arrhythmogenic right ventricular cardiomyopathy (HCC) - ICD9: 425.4, ICD10: I42.8 (primary diagnosis) 2. Sinus node dysfunction (HCC) - ICD9: 427.81, ICD10: I49.5 3. Presence of combination internal cardiac defibrillator (ICD) and pacemaker - ICD9: V45.02, ICD10: Z95.810 4. History of sustained ventricular tachycardia - ICD9: V12.59, ICD10: Z86.79 PLAN AND RECOMMENDATIONS: We reviewed Chris's device check today which shows normal function, she atrially paces routinely which is consistent with her history of sinus node dysfunction. Her device shows normal function and over 5 years remaining expected battery. She had one very brief NSVT 05/08/21 which we reviewed but her VT has been very stable on her metoprolol. She had a list of a number of questions and we covered each one these topics included questions about damage to her heart, device checks, implications of her atrial pacing, her pulse/HRs and if evidence of progression of her disease. We also discussed other related topics such as questions about penitentiary prognosis, activities and we discussed their upcoming plan for a month long vacation and some precautions to take. They indicated that I addressed each of their concerns and that they were satisfied with our conversation. We are going to update an echo to assess her LV/RV function with regards to her question about progression of her disease. We discussed that her device is MRI compatible but artifact from the leads may impact the quality of our image, I feel that if her RV/LV size and function appear stable on her echo this is our best test at this time. Her exam and device check look good. She will continue her device checks and I will see her back in a year. She will message me should questions or concerns arise. I personally interviewed, confirmed and edited the above information as obtained by others. CONTACT INFORMATION: Clarissa Tucker DO As a national referral center for Syncope and related conditions, seeing patients from across the country, we cannot provide work, FMLA, disability or other forms, or cardiac clearance. Please contact the patient's primary care physician or clinical steam tank operator for the documentation requested. We will provide the office notes from the patient's most recent visit if they have not already been received, and other tests or evaluations performed here can be made available upon request. documented in this encounter [facility] 03-15-2019 History of Past i llness Narrative Problem Noted Date Resolved Date AK (actinic keratosis) 03/15/2019 0 Overview: right forearm treated with Cryo 03/2019 PTSD (post-traumatic stress disorder) 08/13/2018 09/16/2019 Plantar fasciitis of left foot 08/27/2017 0 09/10/2019 Plantar fasciitis of right foot 07/18/2016 09/10/2019 Family history of breast cancer 07/04/2016 09/10/2019 Mixed hyperlipidemia 05/16/2015 04/30/2018 Visit for gynecologic examination 05/16/2015 04/30/2018 Overview: [facility] Insomnia 05/16/2015 04/30/2018 Personal history of colonic polyps 04/21/2013 09/10/2019 Left shoulder pain 03/11/2011 09/10/2019 Routine general medical exam ination at a health care facility 01/10/2009 05/12/2013 Overview: 01/10/09 -- establish 03/06/2010, yearly check-up 03/11/2011, yearly check-up Routine Gynecological Examination 07/16/2007 05/12/2013 Overview: [facility], [facility] [place] Unspecified disorder of lipoid metabolism 200605/07/2007 Pain in joint, shoulder region 05/22/2006 0 01/10/2009 Backache, unspecified 05/22/2006 01/10/2009 FIBROCYSTIC BREAST DZ 09/10/2019 Overview: S/P BIOPSY, in [place] ([facility]) -- negative Urge incontinence 04/30/2018 Ptosis, left eyelid 04/30/2018 Overview: benign documented as of this encounter (statuses as of 11/01/2021) [facility] History of Past illness Narrative* Problem Noted Date Resolved Date AK (actinic keratosis) 03/15/2019 0 Overview: right forearm treated with Cryo 03/2019 PTSD (post-traumatic stress disorder) 08/13/2018 09/16/2019 Plantar fasciitis of left foot 08/27/2017 0 09/10/2019 Plantar fasciitis of right foot 07/18/2016 09/10/2019 Family history of breast cancer 07/04/2016 09/10/2019 Mixed hyperlipidemia 05/16/2015 04/30/2018 Visit for gynecologic examination 05/16/2015 04/30/2018 [facility] 05/16/2015 04/30/2018 Personal history of colonic polyps 04/21/2013 09/10/2019 Left shoulder pain 03/11/2011 09/10/2019 Routine general medical exam ination at a health care facility 01/10/2009 05/12/2013 Overview: 01/10/09 -- establish 03/06/2010, yearly check-up 03/11/2011, yearly check-up Routine Gynecological Examination 07/16/2007 05/12/2013 Overview: [facility], [facility] [place] Unspecified disorder of lipoid metabolism 200605/07/2007 Pain in joint, shoulder region 05/22/2006 0 01/10/2009 Backache, unspecified 05/22/2006 01/10/2009 FIBROCYSTIC BREAST DZ 09/10/2019 Overview: S/P BIOPSY, in [place] ([facility]) -- negative Urge incontinence 04/30/2018 Ptosis, left eyelid 04/30/2018 Overview: benign documented as of this encounter (statuses as of 11/01/2021) [facility] History of Past illness Narrative* Problem Noted Date Resolved Date AK (actinic keratosis) 03/15/2019 0 Overview: right forearm treated with Cryo 03/2019 PTSD (post-traumatic stress disorder) 08/13/2018 09/16/2019 Plantar fasciitis of left foot 08/27/2017 0 09/10/2019 Plantar fasciitis of right foot 07/18/2016 09/10/2019 Family history of breast cancer 07/04/2016 09/10/2019 Mixed hyperlipidemia 05/16/2015 04/30/2018 Visit for gynecologic examination 05/16/2015 04/30/2018 Overview: [facility] Insomnia 05/16/2015 04/30/2018 Personal history of colonic polyps 04/21/2013 09/10/2019 Left shoulder pain 03/11/2011 09/10/2019 Routine general medical exam ination at a health care facility 01/10/2009 05/12/2013 Overview: 01/10/09 -- establish 03/06/2010, yearly check-up 03/11/2011, yearly check-up Routine Gynecological Examination 07/16/2007 05/12/2013 Overview: [facility], [facility] [place] Unspecified disorder of lipoid metabolism 200605/07/2007 Pain in joint, shoulder region 05/22/2006 0 01/10/2009 Backache, unspecified 05/22/2006 01/10/2009 FIBROCYSTIC BREAST DZ 09/10/2019 Overview: S/[facility] BI[facility], [facility] [place] [facility] -- negative Urge incontinence 04/30/2018 Ptosis, left eyelid 04/30/2018 Overview: benign documented as of this encounter (statuses as of 11/02/2021) [facility] History of Past illness Narrative* Problem Noted Date Resolved Date AK (actinic keratosis) 03/15/2019 0 Overview: right forearm treated with Cryo 03/2019 PTSD (post-traumatic stress disorder) 08/13/2018 09/16/2019 Plantar fasciitis of left foot 08/27/2017 0 09/10/2019 Plantar fasciitis of right foot 07/18/2016 09/10/2019 Family history of breast cancer 07/04/2016 09/10/2019 Mixed hyperlipidemia 05/16/2015 04/30/2018 Visit for gynecologic examination 05/16/2015 04/30/2018 Overview: [facility] Insomnia 05/16/2015 04/30/2018 Personal history of colonic polyps 04/21/2013 09/10/2019 Left shoulder pain 03/11/2011 09/10/2019 Routine general medical exam ination at a health care facility 01/10/2009 05/12/2013 Overview: 01/10/09 -- establish 03/06/2010, yearly check-up 03/11/2011, yearly check-up Routine Gynecological Examination 07/16/2007 05/12/2013 Overview: [facility], [facility] [place] Unspecified disorder of lipoid metabolism 200605/07/2007 Pain in joint, shoulder region 05/22/2006 0 01/10/2009 Backache, unspecified 05/22/2006 01/10/2009 FIBROCYSTIC BREAST DZ 09/10/2019 Overview: S/P BIOPSY, in [place] ([facility]) -- negative Urge incontinence 04/30/2018 Ptosis, left eyelid 04/30/2018 Overview: benign documented as of this encounter (statuses as of 11/09/2021) [facility] History of Past illness Narrative* Problem Noted Date Resolved Date AK (actinic keratosis) 03/15/2019 0 Overview: right forearm treated with Cryo 03/2019 PTSD (post-traumatic stress disorder) 08/13/2018 09/16/2019 Plantar fasciitis of left foot 08/27/2017 0 09/10/2019 Plantar fasciitis of right foot 07/18/2016 09/10/2019 Family history of breast cancer 07/04/2016 09/10/2019 Mixed hyperlipidemia 05/16/2015 04/30/2018 Visit for gynecologic examination 05/16/2015 04/30/2018 Overview: [facility] Insomnia 05/16/2015 04/30/2018 Personal history of colonic polyps 04/21/2013 09/10/2019 Left shoulder pain 03/11/2011 09/10/2019 Routine general medical exam ination at a health care facility 01/10/2009 05/12/2013 Overview: 01/10/09 -- establish 03/06/2010, yearly check-up 03/11/2011, yearly check-up Routine Gynecological Examination 07/16/2007 05/12/2013 Overview: [facility], [facility] [place] Unspecified disorder of lipoid metabolism 200605/07/2007 Pain in joint, shoulder region 05/22/2006 0 01/10/2009 Backache, unspecified 05/22/2006 01/10/2009 FIBROCYSTIC BREAST DZ 09/10/2019 Overview: S/P BIOPSY, in [place] ([facility]) -- negative Urge incontinence 04/30/2018 Ptosis, left eyelid 04/30/2018 Overview: benign documented as of this encounter (statuses as of 12/06/2021) [facility] History of Past illness Narrative* Problem Noted Date Resolved Date AK (actinic keratosis) 03/15/2019 0 Overview: right forearm treated with Cryo 03/2019 PTSD (post-traumatic stress disorder) 08/13/2018 09/16/2019 Plantar fasciitis of left foot 08/27/2017 0 09/10/2019 Plantar fasciitis of right foot 07/18/2016 09/10/2019 Family history of breast cancer 07/04/2016 09/10/2019 Mixed hyperlipidemia 05/16/2015 04/30/2018 Visit for gynecologic examination 05/16/2015 04/30/2018 Overview: [facility] Insomnia 05/16/2015 04/30/2018 Personal history of colonic polyps 04/21/2013 09/10/2019 Left shoulder pain 03/11/2011 09/10/2019 Routine general medical exam ination at a health care facility 01/10/2009 05/12/2013 Overview: 01/10/09 -- establish 03/06/2010, yearly check-up 03/11/2011, yearly check-up Routine Gynecological Examination 07/16/2007 05/12/2013 Overview: [facility], [facility] Unspecified disorder of lipoid metabolism 200605/07/2007 Pain in joint, shoulder region 05/22/2006 0 01/10/2009 Backache, unspecified 05/22/2006 01/10/2009 FIBROCYSTIC BREAST DZ 09/10/2019 Overview: S/P BIOPSY, in [place] ([facility]) -- negative Urge incontinence 04/30/2018 Ptosis, left eyelid 04/30/2018 Overview: benign documented as of this encounter (statuses as of 01/01/2022) [facility] History of Past illness Narrative* Problem Noted Date Resolved Date AK (actinic keratosis) 03/15/2019 0 Overview: right forearm treated with Cryo 03/2019 PTSD (post-traumatic stress disorder) 08/13/2018 09/16/2019 Plantar fasciitis of left foot 08/27/2017 0 09/10/2019 Plantar fasciitis of right foot 07/18/2016 09/10/2019 Family history of breast cancer 07/04/2016 09/10/2019 Mixed hyperlipidemia 05/16/2015 04/30/2018 Visit for gynecologic examination 05/16/2015 04/30/2018 Overview: [facility] Insomnia 05/16/2015 04/30/2018 Personal history of colonic polyps 04/21/2013 09/10/2019 Left shoulder pain 03/11/2011 09/10/2019 Routine general medical exam ination at a health care facility 01/10/2009 05/12/2013 Overview: 01/10/09 -- establish 03/06/2010, yearly check-up 03/11/2011, yearly check-up Routine Gynecological Examination 07/16/2007 05/12/2013 Overview: [facility], [facility] [place] Unspecified disorder of lipoid metabolism 200605/07/2007 Pain in joint, shoulder region 05/22/2006 0 01/10/2009 Backache, unspecified 05/22/2006 01/10/2009 FIBROCYSTIC BREAST DZ 09/10/2019 Overview: S/P BIOPSY, in [place] ([facility]) -- negative Urge incontinence 04/30/2018 Ptosis, left eyelid 04/30/2018 Overview: benign documented as of this encounter (statuses as of 01/11/2022) [facility] History of Past illness Narrative* Problem Noted Date Resolved Date AK (actinic keratosis) 03/15/2019 0 Overview: right forearm treated with Cryo 03/2019 PTSD (post-traumatic stress disorder) 08/13/2018 09/16/2019 Plantar fasciitis of left foot 08/27/2017 0 09/10/2019 Plantar fasciitis of right foot 07/18/2016 09/10/2019 Family history of breast cancer 07/04/2016 09/10/2019 Mixed hyperlipidemia 05/16/2015 04/30/2018 Visit for gynecologic examination 05/16/2015 04/30/2018 Overview: [facility] Insomnia 05/16/2015 04/30/2018 Personal history of colonic polyps 04/21/2013 09/10/2019 Left shoulder pain 03/11/2011 09/10/2019 Routine general medical exam ination at a health care facility 01/10/2009 05/12/2013 Overview: 01/10/09 -- establish 03/06/2010, yearly check-up 03/11/2011, yearly check-up Routine Gynecological Examination 07/16/2007 05/12/2013 Overview: [facility], [facility] Unspecified disorder of lipoid metabolism 200605/07/2007 Pain in joint, shoulder region 05/22/2006 0 01/10/2009 Backache, unspecified 05/22/2006 01/10/2009 FIBROCYSTIC BREAST DZ 09/10/2019 Overview: S/P BIOPSY, in [place] ([facility]) -- negative Urge incontinence 04/30/2018 Ptosis, left eyelid 04/30/2018 Overview: benign documented as of this encounter (statuses as of 01/11/2022) [facility] History of Past illness Narrative* Problem Noted Date Resolved Date AK (actinic keratosis) 03/15/2019 0 Overview: right forearm treated with Cryo 03/2019 PTSD (post-traumatic stress disorder) 08/13/2018 09/16/2019 Plantar fasciitis of left foot 08/27/2017 0 09/10/2019 Plantar fasciitis of right foot 07/18/2016 09/10/2019 Family history of breast cancer 07/04/2016 09/10/2019 Mixed hyperlipidemia 05/16/2015 04/30/2018 Visit for gynecologic examination 05/16/2015 04/30/2018 Overview: [facility] Insomnia 05/16/2015 04/30/2018 Personal history of colonic polyps 04/21/2013 09/10/2019 Left shoulder pain 03/11/2011 09/10/2019 Routine general medical exam ination at a health care facility 01/10/2009 05/12/2013 Overview: 01/10/09 -- establish 03/06/2010, yearly check-up 03/11/2011, yearly check-up Routine Gynecological Examination 07/16/2007 05/12/2013 Overview: [facility], [facility] [place] Unspecified disorder of lipoid metabolism 200605/07/2007 Pain in joint, shoulder region 05/22/2006 0 01/10/2009 Backache, unspecified 05/22/2006 01/10/2009 FIBROCYSTIC BREAST DZ 09/10/2019 Overview: S/P BIOPSY, in [place] ([facility]) -- negative Urge incontinence 04/30/2018 Ptosis, left eyelid 04/30/2018 Overview: benign documented as of this encounter (statuses as of 01/24/2022) [facility] History of Past illness Narrative* Problem Noted Date Resolved Date AK (actinic keratosis) 03/15/2019 0 Overview: right forearm treated with Cryo 03/2019 PTSD (post-traumatic stress disorder) 08/13/2018 09/16/2019 Plantar fasciitis of left foot 08/27/2017 0 09/10/2019 Plantar fasciitis of right foot 07/18/2016 09/10/2019 Family history of breast cancer 07/04/2016 09/10/2019 Mixed hyperlipidemia 05/16/2015 04/30/2018 Visit for gynecologic examination 05/16/2015 04/30/2018 Overview: [facility] Insomnia 05/16/2015 04/30/2018 Personal history of colonic polyps 04/21/2013 09/10/2019 Left shoulder pain 03/11/2011 09/10/2019 Routine general medical exam ination at a health care facility 01/10/2009 05/12/2013 Overview: 01/10/09 -- establish 03/06/2010, yearly check-up 03/11/2011, yearly check-up Routine Gynecological Examination 07/16/2007 05/12/2013 Overview: [facility], [facility] Unspecified disorder of lipoid metabolism 200605/07/2007 Pain in joint, shoulder region 05/22/2006 0 01/10/2009 Backache, unspecified 05/22/2006 01/10/2009 FIBROCYSTIC BREAST DZ 09/10/2019 Overview: S/P BIOPSY, in [place] ([facility]) -- negative Urge incontinence 04/30/2018 Ptosis, left eyelid 04/30/2018 Overview: benign documented as of this encounter (statuses as of 01/31/2022) [facility]-2019 History of Past illness Narrative* Problem Noted Date Resolved Date AK (actinic keratosis) 03/15/2019 0 Overview: right forearm treated with Cryo 03/2019 PTSD (post-traumatic stress disorder) 08/13/2018 09/16/2019 Plantar fasciitis of left foot 08/27/2017 0 09/10/2019 Plantar fasciitis of right foot 07/18/2016 09/10/2019 Family history of breast cancer 07/04/2016 09/10/2019 Mixed hyperlipidemia 05/16/2015 04/30/2018 Visit for gynecologic examination 05/16/2015 04/30/2018 Overview: [facility] Insomnia 05/16/2015 04/30/2018 Personal history of colonic polyps 04/21/2013 09/10/2019 Left shoulder pain 03/11/2011 09/10/2019 Routine general medical exam ination at a health care facility 01/10/2009 05/12/2013 Overview: 01/10/09 -- establish 03/06/2010, yearly check-up 03/11/2011, yearly check-up Routine Gynecological Examination 07/16/2007 05/12/2013 Overview: [facility], [facility] [place] Unspecified disorder of lipoid metabolism 200605/07/2007 Pain in joint, shoulder region 05/22/2006 0 01/10/2009 Backache, unspecified 05/22/2006 01/10/2009 FIBROCYSTIC BREAST DZ 09/10/2019 Overview: S/P BIOPSY, in [place] ([facility]) -- negative Urge incontinence 04/30/2018 Ptosis, left eyelid 04/30/2018 Overview: benign documented as of this encounter (statuses as of 03/26/2022) [facility] History of Past illness Narrative* Problem Noted Date Resolved Date AK (actinic keratosis) 03/15/2019 0 Overview: right forearm treated with Cryo 03/2019 PTSD (post-traumatic stress disorder) 08/13/2018 09/16/2019 Plantar fasciitis of left foot 08/27/2017 0 09/10/2019 Plantar fasciitis of right foot 07/18/2016 09/10/2019 Family history of breast cancer 07/04/2016 09/10/2019 Mixed hyperlipidemia 05/16/2015 04/30/2018 Visit for gynecologic examination 05/16/2015 04/30/2018 Overview: [facility] Insomnia 05/16/2015 04/30/2018 Personal history of colonic polyps 04/21/2013 09/10/2019 Left shoulder pain 03/11/2011 09/10/2019 Routine general medical exam ination at a health care facility 01/10/2009 05/12/2013 Overview: 01/10/09 -- establish 03/06/2010, yearly check-up 03/11/2011, yearly check-up Routine Gynecological Examination 07/16/2007 05/12/2013 Overview: [facility], [facility] [place] Unspecified disorder of lipoid metabolism 200605/07/2007 Pain in joint, shoulder region 05/22/2006 0 01/10/2009 Backache, unspecified 05/22/2006 01/10/2009 FIBROCYSTIC BREAST DZ 09/10/2019 Overview: S/P BIOPSY, in [place] ([facility]) -- negative Urge incontinence 04/30/2018 Ptosis, left eyelid 04/30/2018 Overview: benign documented as of this encounter (statuses as of 03/29/2022) [facility] History of Past illness Narrative* Problem Noted Date Resolved Date AK (actinic keratosis) 03/15/2019 0 Overview: right forearm treated with Cryo 03/2019 PTSD (post-traumatic stress disorder) 08/13/2018 09/16/2019 Plantar fasciitis of left foot 08/27/2017 0 09/10/2019 Plantar fasciitis of right foot 07/18/2016 09/10/2019 Family history of breast cancer 07/04/2016 09/10/2019 Mixed hyperlipidemia 05/16/2015 04/30/2018 Visit for gynecologic examination 05/16/2015 04/30/2018 Overview: [facility] Insomnia 05/16/2015 04/30/2018 Personal history of colonic polyps 04/21/2013 09/10/2019 Left shoulder pain 03/11/2011 09/10/2019 Routine general medical exam ination at a health care facility 01/10/2009 05/12/2013 Overview: 01/10/09 -- establish 03/06/2010, yearly check-up 03/11/2011, yearly check-up Routine Gynecological Examination 07/16/2007 05/12/2013 Overview: [facility], [facility] [place] Unspecified disorder of lipoid metabolism 200605/07/2007 Pain in joint, shoulder region 05/22/2006 0 01/10/2009 Backache, unspecified 05/22/2006 01/10/2009 FIBROCYSTIC BREAST DZ 09/10/2019 Overview: S/P BIOPSY, in [place] ([facility]) -- negative Urge incontinence 04/30/2018 Ptosis, left eyelid 04/30/2018 Overview: benign documented as of this encounter (statuses as of 05/14/2022) [facility] History of Past illness Narrative* Problem Noted Date Resolved Date AK (actinic keratosis) 03/15/2019 0 Overview: right forearm treated with Cryo 03/2019 PTSD (post-traumatic stress disorder) 08/13/2018 09/16/2019 Plantar fasciitis of left foot 08/27/2017 0 09/10/2019 Plantar fasciitis of right foot 07/18/2016 09/10/2019 Family history of breast cancer 07/04/2016 09/10/2019 Mixed hyperlipidemia 05/16/2015 04/30/2018 Visit for gynecologic examination 05/16/2015 04/30/2018 Overview: [facility] Insomnia 05/16/2015 04/30/2018 Personal history of colonic polyps 04/21/2013 09/10/2019 Left shoulder pain 03/11/2011 09/10/2019 Routine general medical exam ination at a health care facility 01/10/2009 05/12/2013 Overview: 01/10/09 -- establish 03/06/2010, yearly check-up 03/11/2011, yearly check-up Routine Gynecological Examination 07/16/2007 05/12/2013 Overview: [facility], [facility] [place] Unspecified disorder of lipoid metabolism 200605/07/2007 Pain in joint, shoulder region 05/22/2006 0 01/10/2009 Backache, unspecified 05/22/2006 01/10/2009 FIBROCYSTIC BREAST DZ 09/10/2019 Overview: S/P BIOPSY, in [place] ([facility]) -- negative Urge incontinence 04/30/2018 Ptosis, left eyelid 04/30/2018 Overview: benign documented as of this encounter (statuses as of 05/15/2022) [facility] History of Past illness Narrative* Problem Noted Date Resolved Date AK (actinic keratosis) 03/15/2019 0 Overview: right forearm treated with Cryo 03/2019 PTSD (post-traumatic stress disorder) 08/13/2018 09/16/2019 Plantar fasciitis of left foot 08/27/2017 0 09/10/2019 Plantar fasciitis of right foot 07/18/2016 09/10/2019 Family history of breast cancer 07/04/2016 09/10/2019 Mixed hyperlipidemia 05/16/2015 04/30/2018 Visit for gynecologic examination 05/16/2015 04/30/2018 Overview: [facility] Insomnia 05/16/2015 04/30/2018 Personal history of colonic polyps 04/21/2013 09/10/2019 Left shoulder pain 03/11/2011 09/10/2019 Routine general medical exam ination at a health care facility 01/10/2009 05/12/2013 Overview: 01/10/09 -- establish 03/06/2010, yearly check-up 03/11/2011, yearly check-up Routine Gynecological Examination 07/16/2007 05/12/2013 Overview: [facility], [facility] [place] Unspecified disorder of lipoid metabolism 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/07/2007 Pain in joint, shoulder region 05/22/2006 0 01/10/2009 Backache, unspecified 05/22/2006 01/10/2009 FIBROCYSTIC BREAST DZ 09/10/2019 Overview: S/P BIOPSY, in [place] ([facility]) -- negative Urge incontinence 04/30/2018 Ptosis, left eyelid 04/30/2018 Overview: benign documented as of this encounter (statuses as of 05/15/2022) [facility] History of Past illness Narrative* Problem Noted Date Resolved Date AK (actinic keratosis) 03/15/2019 0 Overview: right forearm treated with Cryo 03/2019 PTSD (post-traumatic stress disorder) 08/13/2018 09/16/2019 Plantar fasciitis of left foot 08/27/2017 0 09/10/2019 Plantar fasciitis of right foot 07/18/2016 09/10/2019 Family history of breast cancer 07/04/2016 09/10/2019 Mixed hyperlipidemia 05/16/2015 04/30/2018 Visit for gynecologic examination 05/16/2015 04/30/2018 Overview: [facility] Insomnia 05/16/2015 04/30/2018 Personal history of colonic polyps 04/21/2013 09/10/2019 Left shoulder pain 03/11/2011 09/10/2019 Routine general medical exam ination at a health care facility 01/10/2009 05/12/2013 Overview: 01/10/09 -- establish 03/06/2010, yearly check-up 03/11/2011, yearly check-up Routine Gynecological Examination 07/16/2007 05/12/2013 Overview: [facility], [facility] [place] Unspecified disorder of lipoid metabolism 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/07/2007 Pain in joint, shoulder region 05/22/2006 0 01/10/2009 Backache, unspecified 05/22/2006 01/10/2009 FIBROCYSTIC BREAST DZ 09/10/2019 Overview: S/P BIOPSY, in [place] ([facility]) -- negative Urge incontinence 04/30/2018 Ptosis, left eyelid 04/30/2018 Overview: benign documented as of this encounter (statuses as of 05/20/2022) [facility] History of Past illness Narrative* Problem Noted Date Resolved Date AK (actinic keratosis) 03/15/2019 0 Overview: right forearm treated with Cryo 03/2019 PTSD (post-traumatic stress disorder) 08/13/2018 09/16/2019 Plantar fasciitis of left foot 08/27/2017 0 09/10/2019 Plantar fasciitis of right foot 07/18/2016 09/10/2019 Family history of breast cancer 07/04/2016 09/10/2019 Mixed hyperlipidemia 05/16/2015 04/30/2018 Visit for gynecologic examination 05/16/2015 04/30/2018 Overview: [facility] Insomnia 05/16/2015 04/30/2018 Personal history of colonic polyps 04/21/2013 09/10/2019 Left shoulder pain 03/11/2011 09/10/2019 Routine general medical exam ination at a health care facility 01/10/2009 05/12/2013 Overview: 01/10/09 -- establish 03/06/2010, yearly check-up 03/11/2011, yearly check-up Routine Gynecological Examination 07/16/2007 05/12/2013 Overview: [facility], [facility] [place] Unspecified disorder of lipoid metabolism 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/07/2007 Pain in joint, shoulder region 05/22/2006 0 01/10/2009 Backache, unspecified 05/22/2006 01/10/2009 FIBROCYSTIC BREAST DZ 09/10/2019 Overview: S/P BIOPSY, in [place] ([facility]) -- negative Urge incontinence 04/30/2018 Ptosis, left eyelid 04/30/2018 Overview: benign documented as of this encounter (statuses as of 05/22/2022) [facility] History of Past illness Narrative* Problem Noted Date Resolved Date AK (actinic keratosis) 03/15/2019 0 Overview: right forearm treated with Cryo 03/2019 PTSD (post-traumatic stress disorder) 08/13/2018 09/16/2019 Plantar fasciitis of left foot 08/27/2017 0 09/10/2019 Plantar fasciitis of right foot 07/18/2016 09/10/2019 Family history of breast cancer 07/04/2016 09/10/2019 Mixed hyperlipidemia 05/16/2015 04/30/2018 Visit for gynecologic examination 05/16/2015 04/30/2018 Overview: [facility] Insomnia 05/16/2015 04/30/2018 Personal history of colonic polyps 04/21/2013 09/10/2019 Left shoulder pain 03/11/2011 09/10/2019 Routine general medical exam ination at a health care facility 01/10/2009 05/12/2013 Overview: 01/10/09 -- establish 03/06/2010, yearly check-up 03/11/2011, yearly check-up Routine Gynecological Examination 07/16/2007 05/12/2013 Overview: [facility], [facility] [place] Unspecified disorder of lipoid metabolism 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/07/2007 Pain in joint, shoulder region 05/22/2006 0 01/10/2009 Backache, unspecified 05/22/2006 01/10/2009 FIBROCYSTIC BREAST DZ 09/10/2019 Overview: S/P BIOPSY, in [place] ([facility]) -- negative Urge incontinence 04/30/2018 Ptosis, left eyelid 04/30/2018 Overview: benign documented as of this encounter (statuses as of 05/23/2022) [facility] History of Past illness Narrative* Problem Noted Date Resolved Date AK (actinic keratosis) 03/15/2019 0 Overview: right forearm treated with Cryo 03/2019 PTSD (post-traumatic stress disorder) 08/13/2018 09/16/2019 Plantar fasciitis of left foot 08/27/2017 0 09/10/2019 Plantar fasciitis of right foot 07/18/2016 09/10/2019 Family history of breast cancer 07/04/2016 09/10/2019 Mixed hyperlipidemia 05/16/2015 04/30/2018 Visit for gynecologic examination 05/16/2015 04/30/2018 Overview: [facility] Insomnia 05/16/2015 04/30/2018 Personal history of colonic polyps 04/21/2013 09/10/2019 Left shoulder pain 03/11/2011 09/10/2019 Routine general medical exam ination at a health care facility 01/10/2009 05/12/2013 Overview: 01/10/09 -- establish 03/06/2010, yearly check-up 03/11/2011, yearly check-up Routine Gynecological Examination 07/16/2007 05/12/2013 Overview: [facility], [facility] [place] Unspecified disorder of lipoid metabolism 200605/07/2007 Pain in joint, shoulder region 05/22/2006 0 01/10/2009 Backache, unspecified 05/22/2006 01/10/2009 FIBROCYSTIC BREAST DZ 09/10/2019 Overview: S/P BIOPSY, in [place] ([facility]) -- negative Urge incontinence 04/30/2018 Ptosis, left eyelid 04/30/2018 Overview: benign documented as of this encounter (statuses as of 05/23/2022) [facility] History of Past illness Narrative* Problem Noted Date Resolved Date AK (actinic keratosis) 03/15/2019 0 Overview: right forearm treated with Cryo 03/2019 PTSD (post-traumatic stress disorder) 08/13/2018 09/16/2019 Plantar fasciitis of left foot 08/27/2017 0 09/10/2019 Plantar fasciitis of right foot 07/18/2016 09/10/2019 Family history of breast cancer 07/04/2016 09/10/2019 Mixed hyperlipidemia 05/16/2015 04/30/2018 Visit for gynecologic examination 05/16/2015 04/30/2018 Overview: [facility] Insomnia 05/16/2015 04/30/2018 Personal history of colonic polyps 04/21/2013 09/10/2019 Left shoulder pain 03/11/2011 09/10/2019 Routine general medical exam ination at a health care facility 01/10/2009 05/12/2013 Overview: 01/10/09 -- establish 03/06/2010, yearly check-up 03/11/2011, yearly check-up Routine Gynecological Examination 07/16/2007 05/12/2013 Overview: [facility], [facility] [place] Unspecified disorder of lipoid metabolism 200605/07/2007 Pain in joint, shoulder region 05/22/2006 0 01/10/2009 Backache, unspecified 05/22/2006 01/10/2009 FIBROCYSTIC BREAST DZ 09/10/2019 Overview: S/P BIOPSY, in [place] ([facility]) -- negative Urge incontinence 04/30/2018 Ptosis, left eyelid 04/30/2018 Overview: benign documented as of this encounter (statuses as of 05/24/2022) [facility] History of Past illness Narrative* Problem Noted Date Resolved Date AK (actinic keratosis) 03/15/2019 0 Overview: right forearm treated with Cryo 03/2019 PTSD (post-traumatic stress disorder) 08/13/2018 09/16/2019 Plantar fasciitis of left foot 08/27/2017 0 09/10/2019 Plantar fasciitis of right foot 07/18/2016 09/10/2019 Family history of breast cancer 07/04/2016 09/10/2019 Mixed hyperlipidemia 05/16/2015 04/30/2018 Visit for gynecologic examination 05/16/2015 04/30/2018 Overview: [facility] 05/16/2015 04/30/2018 Personal history of colonic polyps 04/21/2013 09/10/2019 Left shoulder pain 03/11/2011 09/10/2019 Routine general medical exam ination at a health care facility 01/10/2009 05/12/2013 Overview: 01/10/09 -- establish 03/06/2010, yearly check-up 03/11/2011, yearly check-up Routine Gynecological Examination 07/16/2007 05/12/2013 Overview: [facility], [facility] [place] Unspecified disorder of lipoid metabolism 200605/07/2007 Pain in joint, shoulder region 05/22/2006 0 01/10/2009 Backache, unspecified 05/22/2006 01/10/2009 FIBROCYSTIC BREAST DZ 09/10/2019 Overview: S/P BIOPSY, in [place] ([facility]) -- negative Urge incontinence 04/30/2018 Ptosis, left eyelid 04/30/2018 Overview: benign documented as of this encounter (statuses as of 05/25/2022) [facility] History of Past illness Narrative* Problem Noted Date Resolved Date AK (actinic keratosis) 03/15/2019 0 Overview: right forearm treated with Cryo 03/2019 PTSD (post-traumatic stress disorder) 08/13/2018 09/16/2019 Plantar fasciitis of left foot 08/27/2017 0 09/10/2019 Plantar fasciitis of right foot 07/18/2016 09/10/2019 Family history of breast cancer 07/04/2016 09/10/2019 Mixed hyperlipidemia 05/16/2015 04/30/2018 Visit for gynecologic examination 05/16/2015 04/30/2018 Overview: [facility] 05/16/2015 04/30/2018 Personal history of colonic polyps 04/21/2013 09/10/2019 Left shoulder pain 03/11/2011 09/10/2019 Routine general medical exam ination at a health care facility 01/10/2009 05/12/2013 Overview: 01/10/09 -- establish 03/06/2010, yearly check-up 03/11/2011, yearly check-up Routine Gynecological Examination 07/16/2007 05/12/2013 Overview: [facility], [facility] [place] Unspecified disorder of lipoid metabolism 200605/07/2007 Pain in joint, shoulder region 05/22/2006 0 01/10/2009 Backache, unspecified 05/22/2006 01/10/2009 FIBROCYSTIC BREAST DZ 09/10/2019 Overview: S/P BIOPSY, in [place] ([facility]) -- negative Urge incontinence 04/30/2018 Ptosis, left eyelid 04/30/2018 Overview: benign documented as of this encounter (statuses as of 05/28/2022) [facility] History of Past illness Narrative* Problem Noted Date Resolved Date AK (actinic keratosis) 03/15/2019 0 Overview: right forearm treated with Cryo 03/2019 PTSD (post-traumatic stress disorder) 08/13/2018 09/16/2019 Plantar fasciitis of left foot 08/27/2017 0 09/10/2019 Plantar fasciitis of right foot 07/18/2016 09/10/2019 Family history of breast cancer 07/04/2016 09/10/2019 Mixed hyperlipidemia 05/16/2015 04/30/2018 Visit for gynecologic examination 05/16/2015 04/30/2018 Overview: [facility] Insomnia 05/16/2015 04/30/2018 Personal history of colonic polyps 04/21/2013 09/10/2019 Left shoulder pain 03/11/2011 09/10/2019 Routine general medical exam ination at a health care facility 01/10/2009 05/12/2013 Overview: 01/10/09 -- establish 03/06/2010, yearly check-up 03/11/2011, yearly check-up Routine Gynecological Examination 07/16/2007 05/12/2013 Overview: [facility], [facility] [place] Unspecified disorder of lipoid metabolism 200605/07/2007 Pain in joint, shoulder region 05/22/2006 0 01/10/2009 Backache, unspecified 05/22/2006 01/10/2009 FIBROCYSTIC BREAST DZ 09/10/2019 Overview: S/P BIOPSY, in [place] ([facility]) -- negative Urge incontinence 04/30/2018 Ptosis, left eyelid 04/30/2018 Overview: benign documented as of this encounter (statuses as of 06/12/2022) [facility] History of Past illness Narrative* Problem Noted Date Resolved Date AK (actinic keratosis) 03/15/2019 0 Overview: right forearm treated with Cryo 03/2019 PTSD (post-traumatic stress disorder) 08/13/2018 09/16/2019 Plantar fasciitis of left foot 08/27/2017 0 09/10/2019 Plantar fasciitis of right foot 07/18/2016 09/10/2019 Family history of breast cancer 07/04/2016 09/10/2019 Mixed hyperlipidemia 05/16/2015 04/30/2018 Visit for gynecologic examination 05/16/2015 04/30/2018 Overview: [facility] Insomnia 05/16/2015 04/30/2018 Personal history of colonic polyps 04/21/2013 09/10/2019 Left shoulder pain 03/11/2011 09/10/2019 Routine general medical exam ination at a health care facility 01/10/2009 05/12/2013 Overview: 01/10/09 -- establish 03/06/2010, yearly check-up 03/11/2011, yearly check-up Routine Gynecological Examination 07/16/2007 05/12/2013 Overview: [facility], [facility] [place] Unspecified disorder of lipoid metabolism 200605/07/2007 Pain in joint, shoulder region 05/22/2006 0 01/10/2009 Backache, unspecified 05/22/2006 01/10/2009 FIBROCYSTIC BREAST DZ 09/10/2019 Overview: S/P BIOPSY, in [place] ([facility]) -- negative Urge incontinence 04/30/2018 Ptosis, left eyelid 04/30/2018 Overview: benign documented as of this encounter (statuses as of 06/13/2022) [facility] History of Past illness Narrative* Problem Noted Date Resolved Date AK (actinic keratosis) 03/15/2019 0 Overview: right forearm treated with Cryo 03/2019 PTSD (post-traumatic stress disorder) 08/13/2018 09/16/2019 Plantar fasciitis of left foot 08/27/2017 0 09/10/2019 Plantar fasciitis of right foot 07/18/2016 09/10/2019 Family history of breast cancer 07/04/2016 09/10/2019 Mixed hyperlipidemia 05/16/2015 04/30/2018 Visit for gynecologic examination 05/16/2015 04/30/2018 Overview: [facility] Insomnia 05/16/2015 04/30/2018 Personal history of colonic polyps 04/21/2013 09/10/2019 Left shoulder pain 03/11/2011 09/10/2019 Routine general medical exam ination at a health care facility 01/10/2009 05/12/2013 Overview: 01/10/09 -- establish 03/06/2010, yearly check-up 03/11/2011, yearly check-up Routine Gynecological Examination 07/16/2007 05/12/2013 Overview: [facility], [facility] [place] Unspecified disorder of lipoid metabolism 200605/07/2007 Pain in joint, shoulder region 05/22/2006 0 01/10/2009 Backache, unspecified 05/22/2006 01/10/2009 FIBROCYSTIC BREAST DZ 09/10/2019 Overview: S/P BIOPSY, in [place] ([facility]) -- negative Urge incontinence 04/30/2018 Ptosis, left eyelid 04/30/2018 Overview: benign documented as of this encounter (statuses as of 06/13/2022) [facility] History of Past illness Narrative* Problem Noted Date Resolved Date AK (actinic keratosis) 03/15/2019 0 Overview: right forearm treated with Cryo 03/2019 PTSD (post-traumatic stress disorder) 08/13/2018 09/16/2019 Plantar fasciitis of left foot 08/27/2017 0 09/10/2019 Plantar fasciitis of right foot 07/18/2016 09/10/2019 Family history of breast cancer 07/04/2016 09/10/2019 Mixed hyperlipidemia 05/16/2015 04/30/2018 Visit for gynecologic examination 05/16/2015 04/30/2018 Overview: [facility] Insomnia 05/16/2015 04/30/2018 Personal history of colonic polyps 04/21/2013 09/10/2019 Left shoulder pain 03/11/2011 09/10/2019 Routine general medical exam ination at a health care facility 01/10/2009 05/12/2013 Overview: 01/10/09 -- establish 03/06/2010, yearly check-up 03/11/2011, yearly check-up Routine Gynecological Examination 07/16/2007 05/12/2013 Overview: [facility], [facility] [place] Unspecified disorder of lipoid metabolism 200605/07/2007 Pain in joint, shoulder region 05/22/2006 0 01/10/2009 Backache, unspecified 05/22/2006 01/10/2009 FIBROCYSTIC BREAST DZ 09/10/2019 Overview: S/P BIOPSY, in [place] ([facility]) -- negative Urge incontinence 04/30/2018 Ptosis, left eyelid 04/30/2018 Overview: benign documented as of this encounter (statuses as of 06/26/2022) [facility] History of Past illness Narrative* Problem Noted Date Resolved Date AK (actinic keratosis) 03/15/2019 0 Overview: right forearm treated with Cryo 03/2019 PTSD (post-traumatic stress disorder) 08/13/2018 09/16/2019 Plantar fasciitis of left foot 08/27/2017 0 09/10/2019 Plantar fasciitis of right foot 07/18/2016 09/10/2019 Family history of breast cancer 07/04/2016 09/10/2019 Mixed hyperlipidemia 05/16/2015 04/30/2018 Visit for gynecologic examination 05/16/2015 04/30/2018 Overview: [facility] Insomnia 05/16/2015 04/30/2018 Personal history of colonic polyps 04/21/2013 09/10/2019 Left shoulder pain 03/11/2011 09/10/2019 Routine general medical exam ination at a health care facility 01/10/2009 05/12/2013 Overview: 01/10/09 -- establish 03/06/2010, yearly check-up 03/11/2011, yearly check-up Routine Gynecological Examination 07/16/2007 05/12/2013 Overview: [facility], [facility] [place] Unspecified disorder of lipoid metabolism 200605/07/2007 Pain in joint, shoulder region 05/22/2006 0 01/10/2009 Backache, unspecified 05/22/2006 01/10/2009 FIBROCYSTIC BREAST DZ 09/10/2019 Overview: S/P BIOPSY, in [place] ([facility]) -- negative Urge incontinence 04/30/2018 Ptosis, left eyelid 04/30/2018 Overview: benign documented as of this encounter (statuses as of 07/19/2022) [facility] History of Past illness Narrative* Problem Noted Date Resolved Date AK (actinic keratosis) 03/15/2019 0 Overview: right forearm treated with Cryo 03/2019 PTSD (post-traumatic stress disorder) 08/13/2018 09/16/2019 Plantar fasciitis of left foot 08/27/2017 0 09/10/2019 Plantar fasciitis of right foot 07/18/2016 09/10/2019 Family history of breast cancer 07/04/2016 09/10/2019 Mixed hyperlipidemia 05/16/2015 04/30/2018 Visit for gynecologic examination 05/16/2015 04/30/2018 Overview: [facility] Insomnia 05/16/2015 04/30/2018 Personal history of colonic polyps 04/21/2013 09/10/2019 Left shoulder pain 03/11/2011 09/10/2019 Routine general medical exam ination at a health care facility 01/10/2009 05/12/2013 Overview: 01/10/09 -- establish 03/06/2010, yearly check-up 03/11/2011, yearly check-up Routine Gynecological Examination 07/16/2007 05/12/2013 Overview: [facility], [facility] [place] Unspecified disorder of lipoid metabolism 200605/07/2007 Pain in joint, shoulder region 05/22/2006 0 01/10/2009 Backache, unspecified 05/22/2006 01/10/2009 FIBROCYSTIC BREAST DZ 09/10/2019 Overview: S/P BIOPSY, in [place] ([facility]) -- negative Urge incontinence 04/30/2018 Ptosis, left eyelid 04/30/2018 Overview: benign documented as of this encounter (statuses as of 08/07/2022) [facility]-12-2019 History of Past illness Narrative* Problem Noted Date Resolved Date AK (actinic keratosis) 03/15/2019 0 Overview: right forearm treated with Cryo 03/2019 PTSD (post-traumatic stress disorder) 08/13/2018 09/16/2019 Plantar fasciitis of left foot 08/27/2017 0 09/10/2019 Plantar fasciitis of right foot 07/18/2016 09/10/2019 Family history of breast cancer 07/04/2016 09/10/2019 Mixed hyperlipidemia 05/16/2015 04/30/2018 Visit for gynecologic examination 05/16/2015 04/30/2018 Overview: [facility] Insomnia 05/16/2015 04/30/2018 Personal history of colonic polyps 04/21/2013 09/10/2019 Left shoulder pain 03/11/2011 09/10/2019 Routine general medical exam ination at a health care facility 01/10/2009 05/12/2013 Overview: 01/10/09 -- establish 03/06/2010, yearly check-up 03/11/2011, yearly check-up Routine Gynecological Examination 07/16/2007 05/12/2013 Overview: [facility], [facility] [place] Unspecified disorder of lipoid metabolism 200605/07/2007 Pain in joint, shoulder region 05/22/2006 0 01/10/2009 Backache, unspecified 05/22/2006 01/10/2009 FIBROCYSTIC BREAST DZ 09/10/2019 Overview: S/P BIOPSY, in [place] ([facility]) -- negative Urge incontinence 04/30/2018 Ptosis, left eyelid 04/30/2018 Overview: benign documented as of this encounter (statuses as of 08/14/2022) [facility] History of Past illness Narrative* Problem Noted Date Resolved Date AK (actinic keratosis) 03/15/2019 0 Overview: right forearm treated with Cryo 03/2019 PTSD (post-traumatic stress disorder) 08/13/2018 09/16/2019 Plantar fasciitis of left foot 08/27/2017 0 09/10/2019 Plantar fasciitis of right foot 07/18/2016 09/10/2019 Family history of breast cancer 07/04/2016 09/10/2019 Mixed hyperlipidemia 05/16/2015 04/30/2018 Visit for gynecologic examination 05/16/2015 04/30/2018 Overview: [facility] Insomnia 05/16/2015 04/30/2018 Personal history of colonic polyps 04/21/2013 09/10/2019 Left shoulder pain 03/11/2011 09/10/2019 Routine general medical exam ination at a health care facility 01/10/2009 05/12/2013 Overview: 01/10/09 -- establish 03/06/2010, yearly check-up 03/11/2011, yearly check-up Routine Gynecological Examination 07/16/2007 05/12/2013 Overview: [facility], [facility] [place] Unspecified disorder of lipoid metabolism 200605/07/2007 Pain in joint, shoulder region 05/22/2006 0 01/10/2009 Backache, unspecified 05/22/2006 01/10/2009 FIBROCYSTIC BREAST DZ 09/10/2019 Overview: S/P BIOPSY, in [place] ([facility]) -- negative Urge incontinence 04/30/2018 Ptosis, left eyelid 04/30/2018 Overview: benign documented as of this encounter (statuses as of 08/26/2022) [facility] History of Past illness Narrative* Problem Noted Date Resolved Date AK (actinic keratosis) 03/15/2019 0 Overview: right forearm treated with Cryo 03/2019 PTSD (post-traumatic stress disorder) 08/13/2018 09/16/2019 Plantar fasciitis of left foot 08/27/2017 0 09/10/2019 Plantar fasciitis of right foot 07/18/2016 09/10/2019 Family history of breast cancer 07/04/2016 09/10/2019 Mixed hyperlipidemia 05/16/2015 04/30/2018 Visit for gynecologic examination 05/16/2015 04/30/2018 Overview: [facility] Insomnia 05/16/2015 04/30/2018 Personal history of colonic polyps 04/21/2013 09/10/2019 Left shoulder pain 03/11/2011 09/10/2019 Routine general medical exam ination at a health care facility 01/10/2009 05/12/2013 Overview: 01/10/09 -- establish 03/06/2010, yearly check-up 03/11/2011, yearly check-up Routine Gynecological Examination 07/16/2007 05/12/2013 Overview: [facility], [facility] [place] Unspecified disorder of lipoid metabolism 200605/07/2007 Pain in joint, shoulder region 05/22/2006 0 01/10/2009 Backache, unspecified 05/22/2006 01/10/2009 FIBROCYSTIC BREAST DZ 09/10/2019 Overview: S/P BIOPSY, in [place] ([facility]) -- negative Urge incontinence 04/30/2018 Ptosis, left eyelid 04/30/2018 Overview: benign documented as of this encounter (statuses as of 08/30/2022) [facility] History of Past illness Narrative* Problem Noted Date Resolved Date AK (actinic keratosis) 03/15/2019 0 Overview: right forearm treated with Cryo 03/2019 PTSD (post-traumatic stress disorder) 08/13/2018 09/16/2019 Plantar fasciitis of left foot 08/27/2017 0 09/10/2019 Plantar fasciitis of right foot 07/18/2016 09/10/2019 Family history of breast cancer 07/04/2016 09/10/2019 Mixed hyperlipidemia 05/16/2015 04/30/2018 Visit for gynecologic examination 05/16/2015 04/30/2018 Overview: [facility] Insomnia 05/16/2015 04/30/2018 Personal history of colonic polyps 04/21/2013 09/10/2019 Left shoulder pain 03/11/2011 09/10/2019 Routine general medical exam ination at a health care facility 01/10/2009 05/12/2013 Overview: 01/10/09 -- establish 03/06/2010, yearly check-up 03/11/2011, yearly check-up Routine Gynecological Examination 07/16/2007 05/12/2013 Overview: [facility], [facility] [place] Unspecified disorder of lipoid metabolism 200605/07/2007 Pain in joint, shoulder region 05/22/2006 0 01/10/2009 Backache, unspecified 05/22/2006 01/10/2009 FIBROCYSTIC BREAST DZ 09/10/2019 Overview: [facility] [place] [facility] -- negative Urge incontinence 04/30/2018 Ptosis, left eyelid 04/30/2018 Overview: benign documented as of this encounter (statuses as of 10/09/2022) [facility] History of Past illness Narrative* Problem Noted Date Resolved Date AK (actinic keratosis) 03/15/2019 0 Overview: right forearm treated with Cryo 03/2019 PTSD (post-traumatic stress disorder) 08/13/2018 09/16/2019 Plantar fasciitis of left foot 08/27/2017 0 09/10/2019 Plantar fasciitis of right foot 07/18/2016 09/10/2019 Family history of breast cancer 07/04/2016 09/10/2019 Mixed hyperlipidemia 05/16/2015 04/30/2018 Visit for gynecologic examination 05/16/2015 04/30/2018 Overview: [facility] Insomnia 05/16/2015 04/30/2018 Personal history of colonic polyps 04/21/2013 09/10/2019 Left shoulder pain 03/11/2011 09/10/2019 Routine general medical exam ination at a health care facility 01/10/2009 05/12/2013 Overview: 01/10/09 -- establish 03/06/2010, yearly check-up 03/11/2011, yearly check-up Routine Gynecological Examination 07/16/2007 05/12/2013 Overview: [facility], [facility] [place] Unspecified disorder of lipoid metabolism 200605/07/2007 Pain in joint, shoulder region 05/22/2006 0 01/10/2009 Backache, unspecified 05/22/2006 01/10/2009 FIBROCYSTIC BREAST DZ 09/10/2019 Overview: S/P BIOPSY, in [place] ([facility]) -- negative Urge incontinence 04/30/2018 Ptosis, left eyelid 04/30/2018 Overview: benign documented as of this encounter (statuses as of 10/10/2022) [facility] History of Past illness Narrative* Problem Noted Date Resolved Date AK (actinic keratosis) 03/15/2019 0 Overview: right forearm treated with Cryo 03/2019 PTSD (post-traumatic stress disorder) 08/13/2018 09/16/2019 Plantar fasciitis of left foot 08/27/2017 0 09/10/2019 Plantar fasciitis of right foot 07/18/2016 09/10/2019 Family history of breast cancer 07/04/2016 09/10/2019 Mixed hyperlipidemia 05/16/2015 04/30/2018 Visit for gynecologic examination 05/16/2015 04/30/2018 Overview: [facility] Insomnia 05/16/2015 04/30/2018 Personal history of colonic polyps 04/21/2013 09/10/2019 Left shoulder pain 03/11/2011 09/10/2019 Routine general medical exam ination at a health care facility 01/10/2009 05/12/2013 Overview: 01/10/09 -- establish 03/06/2010, yearly check-up 03/11/2011, yearly check-up Routine Gynecological Examination 07/16/2007 05/12/2013 Overview: [facility], [facility] [place] Unspecified disorder of lipoid metabolism 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/07/2007 Pain in joint, shoulder region 05/22/2006 0 01/10/2009 Backache, unspecified 05/22/2006 01/10/2009 FIBROCYSTIC BREAST DZ 09/10/2019 Overview: S/P BIOPSY, in [place] ([facility]) -- negative Urge incontinence 04/30/2018 Ptosis, left eyelid 04/30/2018 Overview: benign documented as of this encounter (statuses as of 11/08/2022) [facility] History of Past illness Narrative* Problem Noted Date Resolved Date AK (actinic keratosis) 03/15/2019 0 Overview: right forearm treated with Cryo 03/2019 PTSD (post-traumatic stress disorder) 08/13/2018 09/16/2019 Plantar fasciitis of left foot 08/27/2017 0 09/10/2019 Plantar fasciitis of right foot 07/18/2016 09/10/2019 Family history of breast cancer 07/04/2016 09/10/2019 Mixed hyperlipidemia 05/16/2015 04/30/2018 Visit for gynecologic examination 05/16/2015 04/30/2018 Overview: [facility] Insomnia 05/16/2015 04/30/2018 Personal history of colonic polyps 04/21/2013 09/10/2019 Left shoulder pain 03/11/2011 09/10/2019 Routine general medical exam ination at a health care facility 01/10/2009 05/12/2013 Overview: 01/10/09 -- establish 03/06/2010, yearly check-up 03/11/2011, yearly check-up Routine Gynecological Examination 07/16/2007 05/12/2013 Overview: [facility], [facility] [place] Unspecified disorder of lipoid metabolism 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/07/2007 Pain in joint, shoulder region 05/22/2006 0 01/10/2009 Backache, unspecified 05/22/2006 01/10/2009 FIBROCYSTIC BREAST DZ 09/10/2019 Overview: S/P BIOPSY, in [place] ([facility]) -- negative Urge incontinence 04/30/2018 Ptosis, left eyelid 04/30/2018 Overview: benign documented as of this encounter (statuses as of 11/08/2022) [facility] History of Past illness Narrative* Problem Noted Date Resolved Date AK (actinic keratosis) 03/15/2019 0 Overview: right forearm treated with Cryo 03/2019 PTSD (post-traumatic stress disorder) 08/13/2018 09/16/2019 Plantar fasciitis of left foot 08/27/2017 0 09/10/2019 Plantar fasciitis of right foot 07/18/2016 09/10/2019 Family history of breast cancer 07/04/2016 09/10/2019 Mixed hyperlipidemia 05/16/2015 04/30/2018 Visit for gynecologic examination 05/16/2015 04/30/2018 Overview: [facility] Insomnia 05/16/2015 04/30/2018 Personal history of colonic polyps 04/21/2013 09/10/2019 Left shoulder pain 03/11/2011 09/10/2019 Routine general medical exam ination at a health care facility 01/10/2009 05/12/2013 Overview: 01/10/09 -- establish 03/06/2010, yearly check-up 03/11/2011, yearly check-up Routine Gynecological Examination 07/16/2007 05/12/2013 Overview: [facility], [facility] [place] Unspecified disorder of lipoid metabolism 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/07/2007 Pain in joint, shoulder region 05/22/2006 0 01/10/2009 Backache, unspecified 05/22/2006 01/10/2009 FIBROCYSTIC BREAST DZ 09/10/2019 Overview: S/P BIOPSY, in [place] ([facility]) -- negative Urge incontinence 04/30/2018 Ptosis, left eyelid 04/30/2018 Overview: benign documented as of this encounter (statuses as of 11/13/2022) [facility] History of Past illness Narrative* Problem Noted Date Resolved Date AK (actinic keratosis) 03/15/2019 0 Overview: right forearm treated with Cryo 03/2019 PTSD (post-traumatic stress disorder) 08/13/2018 09/16/2019 Plantar fasciitis of left foot 08/27/2017 0 09/10/2019 Plantar fasciitis of right foot 07/18/2016 09/10/2019 Family history of breast cancer 07/04/2016 09/10/2019 Mixed hyperlipidemia 05/16/2015 04/30/2018 Visit for gynecologic examination 05/16/2015 04/30/2018 Overview: [facility] Insomnia 05/16/2015 04/30/2018 Personal history of colonic polyps 04/21/2013 09/10/2019 Left shoulder pain 03/11/2011 09/10/2019 Routine general medical exam ination at a health care facility 01/10/2009 05/12/2013 Overview: 01/10/09 -- establish 03/06/2010, yearly check-up 03/11/2011, yearly check-up Routine Gynecological Examination 07/16/2007 05/12/2013 Overview: [facility], [facility] [place] Unspecified disorder of lipoid metabolism 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/07/2007 Pain in joint, shoulder region 05/22/2006 0 01/10/2009 Backache, unspecified 05/22/2006 01/10/2009 FIBROCYSTIC BREAST DZ 09/10/2019 Overview: S/P BIOPSY, in [place] ([facility]) -- negative Urge incontinence 04/30/2018 Ptosis, left eyelid 04/30/2018 Overview: benign documented as of this encounter (statuses as of 11/13/2022) [facility] History of Past illness Narrative* Problem Noted Date Resolved Date AK (actinic keratosis) 03/15/2019 0 Overview: right forearm treated with Cryo 03/2019 PTSD (post-traumatic stress disorder) 08/13/2018 09/16/2019 Plantar fasciitis of left foot 08/27/2017 0 09/10/2019 Plantar fasciitis of right foot 07/18/2016 09/10/2019 Family history of breast cancer 07/04/2016 09/10/2019 Mixed hyperlipidemia 05/16/2015 04/30/2018 Visit for gynecologic examination 05/16/2015 04/30/2018 Overview: [facility] Insomnia 05/16/2015 04/30/2018 Personal history of colonic polyps 04/21/2013 09/10/2019 Left shoulder pain 03/11/2011 09/10/2019 Routine general medical exam ination at a health care facility 01/10/2009 05/12/2013 Overview: 01/10/09 -- establish 03/06/2010, yearly check-up 03/11/2011, yearly check-up Routine Gynecological Examination 07/16/2007 05/12/2013 Overview: [facility], [facility] [place] Unspecified disorder of lipoid metabolism 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/07/2007 Pain in joint, shoulder region 05/22/2006 0 01/10/2009 Backache, unspecified 05/22/2006 01/10/2009 FIBROCYSTIC BREAST DZ 09/10/2019 Overview: S/P BIOPSY, in [place] ([facility]) -- negative Urge incontinence 04/30/2018 Ptosis, left eyelid 04/30/2018 Overview: benign documented as of this encounter (statuses as of 12/14/2022) [facility] History of Past illness Narrative* Problem Noted Date Resolved Date AK (actinic keratosis) 03/15/2019 0 Overview: right forearm treated with Cryo 03/2019 PTSD (post-traumatic stress disorder) 08/13/2018 09/16/2019 Plantar fasciitis of left foot 08/27/2017 0 09/10/2019 Plantar fasciitis of right foot 07/18/2016 09/10/2019 Family history of breast cancer 07/04/2016 09/10/2019 Mixed hyperlipidemia 05/16/2015 04/30/2018 Visit for gynecologic examination 05/16/2015 04/30/2018 Overview: [facility] Insomnia 05/16/2015 04/30/2018 Personal history of colonic polyps 04/21/2013 09/10/2019 Left shoulder pain 03/11/2011 09/10/2019 Routine general medical exam ination at a health care facility 01/10/2009 05/12/2013 Overview: 01/10/09 -- establish 03/06/2010, yearly check-up 03/11/2011, yearly check-up Routine Gynecological Examination 07/16/2007 05/12/2013 Overview: [facility], [facility] [place] Unspecified disorder of lipoid metabolism 200605/07/2007 Pain in joint, shoulder region 05/22/2006 0 01/10/2009 Backache, unspecified 05/22/2006 01/10/2009 FIBROCYSTIC BREAST DZ 09/10/2019 Overview: S/P BIOPSY, in [place] ([facility]) -- negative Urge incontinence 04/30/2018 Ptosis, left eyelid 04/30/2018 Overview: benign documented as of this encounter (statuses as of 01/03/2023) [facility] History of Past illness Narrative* Problem Noted Date Resolved Date AK (actinic keratosis) 03/15/2019 0 Overview: right forearm treated with Cryo 03/2019 PTSD (post-traumatic stress disorder) 08/13/2018 09/16/2019 Plantar fasciitis of left foot 08/27/2017 0 09/10/2019 Plantar fasciitis of right foot 07/18/2016 09/10/2019 Family history of breast cancer 07/04/2016 09/10/2019 Mixed hyperlipidemia 05/16/2015 04/30/2018 Visit for gynecologic examination 05/16/2015 04/30/2018 Overview: [facility] Insomnia 05/16/2015 04/30/2018 Personal history of colonic polyps 04/21/2013 09/10/2019 Left shoulder pain 03/11/2011 09/10/2019 Routine general medical exam ination at a health care facility 01/10/2009 05/12/2013 Overview: 01/10/09 -- establish 03/06/2010, yearly check-up 03/11/2011, yearly check-up Routine Gynecological Examination 07/16/2007 05/12/2013 Overview: [facility], [facility] [place] Unspecified disorder of lipoid metabolism 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/07/2007 Pain in joint, shoulder region 05/22/2006 0 01/10/2009 Backache, unspecified 05/22/2006 01/10/2009 FIBROCYSTIC BREAST DZ 09/10/2019 Overview: S/P BIOPSY, in [place] ([facility]) -- negative Urge incontinence 04/30/2018 Ptosis, left eyelid 04/30/2018 Overview: benign documented as of this encounter (statuses as of 01/21/2023) [facility] History of Past illness Narrative* Problem Noted Date Resolved Date AK (actinic keratosis) 03/15/2019 0 Overview: right forearm treated with Cryo 03/2019 PTSD (post-traumatic stress disorder) 08/13/2018 09/16/2019 Plantar fasciitis of left foot 08/27/2017 0 09/10/2019 Plantar fasciitis of right foot 07/18/2016 09/10/2019 Family history of breast cancer 07/04/2016 09/10/2019 Mixed hyperlipidemia 05/16/2015 04/30/2018 Visit for gynecologic examination 05/16/2015 04/30/2018 Overview: [facility] Insomnia 05/16/2015 04/30/2018 Personal history of colonic polyps 04/21/2013 09/10/2019 Left shoulder pain 03/11/2011 09/10/2019 Routine general medical exam ination at a health care facility 01/10/2009 05/12/2013 Overview: 01/10/09 -- establish 03/06/2010, yearly check-up 03/11/2011, yearly check-up Routine Gynecological Examination 07/16/2007 05/12/2013 Overview: [facility], [facility] [place] Unspecified disorder of lipoid metabolism 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/07/2007 Pain in joint, shoulder region 05/22/2006 0 01/10/2009 Backache, unspecified 05/22/2006 01/10/2009 FIBROCYSTIC BREAST DZ 09/10/2019 Overview: S/P BIOPSY, in [place] ([facility]) -- negative Urge incontinence 04/30/2018 Ptosis, left eyelid 04/30/2018 Overview: benign documented as of this encounter (statuses as of 02/03/2023) [facility] History of Past illness Narrative* Problem Noted Date Resolved Date AK (actinic keratosis) 03/15/2019 0 Overview: right forearm treated with Cryo 03/2019 PTSD (post-traumatic stress disorder) 08/13/2018 09/16/2019 Plantar fasciitis of left foot 08/27/2017 0 09/10/2019 Plantar fasciitis of right foot 07/18/2016 09/10/2019 Family history of breast cancer 07/04/2016 09/10/2019 Mixed hyperlipidemia 05/16/2015 04/30/2018 Visit for gynecologic examination 05/16/2015 04/30/2018 Overview: [facility] Insomnia 05/16/2015 04/30/2018 Personal history of colonic polyps 04/21/2013 09/10/2019 Left shoulder pain 03/11/2011 09/10/2019 Routine general medical exam ination at a health care facility 01/10/2009 05/12/2013 Overview: 01/10/09 -- establish 03/06/2010, yearly check-up 03/11/2011, yearly check-up Routine Gynecological Examination 07/16/2007 05/12/2013 Overview: [facility], [facility] [place] Unspecified disorder of lipoid metabolism 200605/07/2007 Pain in joint, shoulder region 05/22/2006 0 01/10/2009 Backache, unspecified 05/22/2006 01/10/2009 FIBROCYSTIC BREAST DZ 09/10/2019 Overview: S/[facility], [facility] [place] [facility] -- negative Urge incontinence 04/30/2018 Ptosis, left eyelid 04/30/2018 Overview: benign documented as of this encounter (statuses as of 02/04/2023) [facility] History of Past illness Narrative* Problem Noted Date Resolved Date AK (actinic keratosis) 03/15/2019 0 Overview: right forearm treated with Cryo 03/2019 PTSD (post-traumatic stress disorder) 08/13/2018 09/16/2019 Plantar fasciitis of left foot 08/27/2017 0 09/10/2019 Plantar fasciitis of right foot 07/18/2016 09/10/2019 Family history of breast cancer 07/04/2016 09/10/2019 Mixed hyperlipidemia 05/16/2015 04/30/2018 Visit for gynecologic examination 05/16/2015 04/30/2018 Overview: [facility] Insomnia 05/16/2015 04/30/2018 Personal history of colonic polyps 04/21/2013 09/10/2019 Left shoulder pain 03/11/2011 09/10/2019 Routine general medical exam ination at a health care facility 01/10/2009 05/12/2013 Overview: 01/10/09 -- establish 03/06/2010, yearly check-up 03/11/2011, yearly check-up Routine Gynecological Examination 07/16/2007 05/12/2013 Overview: [facility], [facility] [place] Unspecified disorder of lipoid metabolism 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/07/2007 Pain in joint, shoulder region 05/22/2006 0 01/10/2009 Backache, unspecified 05/22/2006 01/10/2009 FIBROCYSTIC BREAST DZ 09/10/2019 Overview: S/P BIOPSY, in [place] ([facility]) -- negative Urge incontinence 04/30/2018 Ptosis, left eyelid 04/30/2018 Overview: benign documented as of this encounter (statuses as of 02/05/2023) [facility] History of Past illness Narrative* Problem Noted Date Diagnosed Date Resolved Date AK (actinic keratosis) 03/15/201909/10 Overview: right forearm treated with Cryo 03/2019 PTSD (post-traumatic stress disorder) 08/13/2018 09/16/2019 Plantar fasciitis of left foot 08/27/2017 09/10/2019 Plantar fasciitis of right foot 07/18/2016 09/10/2019 Family history of breast cancer 07/04/2016 09/10/2019 Mixed hyperlipidemia 05/16/2015 018 Visit for gynecologic examination 05/16/2015 04/30/2018 Overview: [facility] Insomnia 05/16/2015 04/30/2018 Personal history of colonic polyps 04/21/2013 09/10/2019 Left shoulder pain 03/11/2011 0 Routine general medical exam ination at a health care facility 01/10/2009 05/12/2013 Overview: 01/10/09 -- establish 03/06/2010, yearly check-up 03/11/2011, yearly check-up Routine Gynecological Examination 07/16/2007 05/12/2013 Overview: [facility], [facility] [place] Unspecified disorder of lipoid metabolism 05/07/2007 05/07/2007 Pain in joint, shoulder region 05/22/2006 01/10/2009 Backache, unspecified 05/22/20062008 FIBROCYSTIC BREAST DZ 2019 Overview: S/P BIOPSY, in [place] ([facility]) -- negative Urge incontinence 04/30/2018 Ptosis, left eyelid 04/30/20 18 Overview: benign documented as of this encounter (statuses as of 02/12/2023) [facility] History of Past illness Narrative* Problem Noted Date Diagnosed Date Resolved Date AK (actinic keratosis) 03/15/201909/10 Overview: right forearm treated with Cryo 03/2019 PTSD (post-traumatic stress disorder) 08/13/2018 09/16/2019 Plantar fasciitis of left foot 08/27/2017 09/10/2019 Plantar fasciitis of right foot 07/18/2016 09/10/2019 Family history of breast cancer 07/04/2016 09/10/2019 Mixed hyperlipidemia 05/16/2015 018 Visit for gynecologic examination 05/16/2015 04/30/2018 Overview: [facility] Insomnia 05/16/2015 04/30/2018 Personal history of colonic polyps 04/21/2013 09/10/2019 Left shoulder pain 03/11/2011 0 Routine general medical exam ination at a health care facility 01/10/2009 05/12/2013 Overview: 01/10/09 -- establish 03/06/2010, yearly check-up 03/11/2011, yearly check-up Routine Gynecological Examination 07/16/2007 05/12/2013 Overview: [facility], [facility] [place] Unspecified disorder of lipoid metabolism 05/07/2007 05/07/2007 Pain in joint, shoulder region 05/22/2006 01/10/2009 Backache, unspecified 05/22/20062008 FIBROCYSTIC BREAST DZ 2019 Overview: S/P BIOPSY, in [place] ([facility]) -- negative Urge incontinence 04/30/2018 Ptosis, left eyelid 04/30/20 18 Overview: benign documented as of this encounter (statuses as of 02/14/2023) [facility] History of Past illness Narrative* Problem Noted Date Diagnosed Date Resolved Date AK (actinic keratosis) 03/15/201909/10 Overview: right forearm treated with Cryo 03/2019 PTSD (post-traumatic stress disorder) 08/13/2018 09/16/2019 Plantar fasciitis of left foot 08/27/2017 09/10/2019 Plantar fasciitis of right foot 07/18/2016 09/10/2019 Family history of breast cancer 07/04/2016 09/10/2019 Mixed hyperlipidemia 05/16/2015 018 Visit for gynecologic examination 05/16/2015 04/30/2018 Overview: [facility] Insomnia 05/16/2015 04/30/2018 Personal history of colonic polyps 04/21/2013 09/10/2019 Left shoulder pain 03/11/2011 0 Routine general medical exam ination at a health care facility 01/10/2009 05/12/2013 Overview: 01/10/09 -- establish 03/06/2010, yearly check-up 03/11/2011, yearly check-up Routine Gynecological Examination 07/16/2007 05/12/2013 Overview: [facility], [facility] Unspecified disorder of lipoid metabolism 05/07/2007 05/07/2007 Pain in joint, shoulder region 05/22/2006 01/10/2009 Backache, unspecified 05/22/20062008 FIBROCYSTIC BREAST DZ 2019 Overview: S/P BIOPSY, in [place] ([facility]) -- negative Urge incontinence 04/30/2018 Ptosis, left eyelid 04/30/20 18 Overview: benign documented as of this encounter (statuses as of 02/14/2023) [facility]08-12-2019 History of Past illness Narrative* Problem Noted Date Diagnosed Date Resolved Date AK (actinic keratosis) 03/15/201909/10 Overview: right forearm treated with Cryo 03/2019 PTSD (post-traumatic stress disorder) 08/13/2018 09/16/2019 Plantar fasciitis of left foot 08/27/2017 09/10/2019 Plantar fasciitis of right foot 07/18/2016 09/10/2019 Family history of breast cancer 07/04/2016 09/10/2019 Mixed hyperlipidemia 05/16/2015 018 Visit for gynecologic examination 05/16/2015 04/30/2018 Overview: [facility] Insomnia 05/16/2015 04/30/2018 Personal history of colonic polyps 04/21/2013 09/10/2019 Left shoulder pain 03/11/2011 0 Routine general medical exam ination at a health care facility 01/10/2009 05/12/2013 Overview: 01/10/09 -- establish 03/06/2010, yearly check-up 03/11/2011, yearly check-up Routine Gynecological Examination 07/16/2007 05/12/2013 Overview: [facility], [facility] [place] Unspecified disorder of lipoid metabolism 05/07/2007 05/07/2007 Pain in joint, shoulder region 05/22/2006 01/10/2009 Backache, unspecified 05/22/20062008 FIBROCYSTIC BREAST DZ 2019 Overview: S/P BIOPSY, in [place] ([facility]) -- negative Urge incontinence 04/30/2018 Ptosis, left eyelid 04/30/20 18 Overview: benign documented as of this encounter (statuses as of 03/08/2023) [facility] History of Past illness Narrative* Problem Noted Date Diagnosed Date Resolved Date AK (actinic keratosis) 03/15/201909/10 Overview: right forearm treated with Cryo 03/2019 PTSD (post-traumatic stress disorder) 08/13/2018 09/16/2019 Plantar fasciitis of left foot 08/27/2017 09/10/2019 Plantar fasciitis of right foot 07/18/2016 09/10/2019 Family history of breast cancer 07/04/2016 09/10/2019 Mixed hyperlipidemia 05/16/2015 018 Visit for gynecologic examination 05/16/2015 04/30/2018 Overview: [facility] Insomnia 05/16/2015 04/30/2018 Personal history of colonic polyps 04/21/2013 09/10/2019 Left shoulder pain 03/11/2011 0 Routine general medical exam ination at a health care facility 01/10/2009 05/12/2013 Overview: 01/10/09 -- establish 03/06/2010, yearly check-up 03/11/2011, yearly check-up Routine Gynecological Examination 07/16/2007 05/12/2013 Overview: [facility], [facility] [place] Unspecified disorder of lipoid metabolism 05/07/2007 05/07/2007 Pain in joint, shoulder region 05/22/2006 01/10/2009 Backache, unspecified 05/22/20062008 FIBROCYSTIC BREAST DZ 2019 Overview: S/P BIOPSY, in [place] ([facility]) -- negative Urge incontinence 04/30/2018 Ptosis, left eyelid 04/30/20 18 Overview: benign documented as of this encounter (statuses as of 03/08/2023) [facility]2019 History of Past illness Narrative* Problem Noted Date Diagnosed Date Resolved Date AK (actinic keratosis) 03/15/201909/10 Overview: right forearm treated with Cryo 03/2019 PTSD (post-traumatic stress disorder) 08/13/2018 09/16/2019 Plantar fasciitis of left foot 08/27/2017 09/10/2019 Plantar fasciitis of right foot 07/18/2016 09/10/2019 Family history of breast cancer 07/04/2016 09/10/2019 Mixed hyperlipidemia 05/16/2015 018 Visit for gynecologic examination 05/16/2015 04/30/2018 Overview: [facility] Insomnia 05/16/2015 04/30/2018 Personal history of colonic polyps 04/21/2013 09/10/2019 Left shoulder pain 03/11/2011 0 Routine general medical exam ination at a health care facility 01/10/2009 05/12/2013 Overview: 01/10/09 -- establish 03/06/2010, yearly check-up 03/11/2011, yearly check-up Routine Gynecological Examination 07/16/2007 05/12/2013 Overview: [facility], [facility] [place] Unspecified disorder of lipoid metabolism 05/07/2007 05/07/2007 Pain in joint, shoulder region 05/22/2006 01/10/2009 Backache, unspecified 05/22/20062008 FIBROCYSTIC BREAST DZ 2019 Overview: S/P BIOPSY, in [place] ([facility]) -- negative Urge incontinence 04/30/2018 Ptosis, left eyelid 04/30/20 18 Overview: benign documented as of this encounter (statuses as of 03/10/2023) [facility] History of Past illness Narrative* Problem Noted Date Diagnosed Date Resolved Date AK (actinic keratosis) 03/15/201909/10 Overview: right forearm treated with Cryo 03/2019 PTSD (post-traumatic stress disorder) 08/13/2018 09/16/2019 Plantar fasciitis of left foot 08/27/2017 09/10/2019 Plantar fasciitis of right foot 07/18/2016 09/10/2019 Family history of breast cancer 07/04/2016 09/10/2019 Mixed hyperlipidemia 05/16/2015 018 Visit for gynecologic examination 05/16/2015 04/30/2018 Overview: [facility] Insomnia 05/16/2015 04/30/2018 Personal history of colonic polyps 04/21/2013 09/10/2019 Left shoulder pain 03/11/2011 0 Routine general medical exam ination at a health care facility 01/10/2009 05/12/2013 Overview: 01/10/09 -- establish 03/06/2010, yearly check-up 03/11/2011, yearly check-up Routine Gynecological Examination 07/16/2007 05/12/2013 Overview: [facility], [facility] [place] Unspecified disorder of lipoid metabolism 05/07/2007 05/07/2007 Pain in joint, shoulder region 05/22/2006 01/10/2009 Backache, unspecified 05/22/20062008 FIBROCYSTIC BREAST DZ 2019 Overview: S/P BIOPSY, in [place] ([facility]) -- negative Urge incontinence 04/30/2018 Ptosis, left eyelid 04/30/20 18 Overview: benign documented as of this encounter (statuses as of 03/10/2023) [facility] History of Past illness Narrative* Problem Noted Date Diagnosed Date Resolved Date AK (actinic keratosis) 03/15/201909/10 Overview: right forearm treated with Cryo 03/2019 PTSD (post-traumatic stress disorder) 08/13/2018 09/16/2019 Plantar fasciitis of left foot 08/27/2017 09/10/2019 Plantar fasciitis of right foot 07/18/2016 09/10/2019 Family history of breast cancer 07/04/2016 09/10/2019 Mixed hyperlipidemia 05/16/2015 018 Visit for gynecologic examination 05/16/2015 04/30/2018 [facility]: [facility] 05/16/2015 04/30/2018 Personal history of colonic polyps 04/21/2013 09/10/2019 Left shoulder pain 03/11/2011 0 Routine general medical exam ination at a health care facility 01/10/2009 05/12/2013 Overview: 01/10/09 -- establish 03/06/2010, yearly check-up 03/11/2011, yearly check-up Routine Gynecological Examination 07/16/2007 05/12/2013 Overview: [facility], [facility] [place] Unspecified disorder of lipoid metabolism 05/07/2007 05/07/2007 Pain in joint, shoulder region 05/22/2006 01/10/2009 Backache, unspecified 05/22/20062008 FIBROCYSTIC BREAST DZ 2019 Overview: S/P BIOPSY, in [place] ([facility]) -- negative Urge incontinence 04/30/2018 Ptosis, left eyelid 04/30/20 18 Overview: benign documented as of this encounter (statuses as of 03/21/2023) [facility] History of Past illness Narrative* Problem Noted Date Diagnosed Date Resolved Date AK (actinic keratosis) 03/15/201909/10 Overview: right forearm treated with Cryo 03/2019 PTSD (post-traumatic stress disorder) 08/13/2018 09/16/2019 Plantar fasciitis of left foot 08/27/2017 09/10/2019 Plantar fasciitis of right foot 07/18/2016 09/10/2019 Family history of breast cancer 07/04/2016 09/10/2019 Mixed hyperlipidemia 05/16/2015 018 Visit for gynecologic examination 05/16/2015 04/30/2018 Overview: [facility] Insomnia 05/16/2015 04/30/2018 Personal history of colonic polyps 04/21/2013 09/10/2019 Left shoulder pain 03/11/2011 0 Routine general medical exam ination at a health care facility 01/10/2009 05/12/2013 Overview: 01/10/09 -- establish 03/06/2010, yearly check-up 03/11/2011, yearly check-up Routine Gynecological Examination 07/16/2007 05/12/2013 Overview: [facility], [facility] [place] Unspecified disorder of lipoid metabolism 05/07/2007 05/07/2007 Pain in joint, shoulder region 05/22/2006 01/10/2009 Backache, unspecified 05/22/20062008 FIBROCYSTIC BREAST DZ 2019 Overview: S[facility], [facility] [place] [facility] -- negative Urge incontinence 04/30/2018 Ptosis, left eyelid 04/30/20 18 Overview: benign documented as of this encounter (statuses as of 03/28/2023) [facility] History of Past illness Narrative* Problem Noted Date Diagnosed Date Resolved Date AK (actinic keratosis) 03/15/201909/10 Overview: right forearm treated with Cryo 03/2019 PTSD (post-traumatic stress disorder) 08/13/2018 09/16/2019 Plantar fasciitis of left foot 08/27/2017 09/10/2019 Plantar fasciitis of right foot 07/18/2016 09/10/2019 Family history of breast cancer 07/04/2016 09/10/2019 Mixed hyperlipidemia 05/16/2015 018 Visit for gynecologic examination 05/16/2015 04/30/2018 Overview: [facility] Insomnia 05/16/2015 04/30/2018 Personal history of colonic polyps 04/21/2013 09/10/2019 Left shoulder pain 03/11/2011 0 Routine general medical exam ination at a health care facility 01/10/2009 05/12/2013 Overview: 01/10/09 -- establish 03/06/2010, yearly check-up 03/11/2011, yearly check-up Routine Gynecological Examination 07/16/2007 05/12/2013 Overview: [facility], [facility] [place] Unspecified disorder of lipoid metabolism 05/07/2007 05/07/2007 Pain in joint, shoulder region 05/22/2006 01/10/2009 Backache, unspecified 05/22/20062008 FIBROCYSTIC BREAST DZ 2019 Overview: S/P BIOPSY, [facility] [place] [facility] -- negative Urge incontinence 04/30/2018 Ptosis, left eyelid 04/30/20 18 Overview: benign documented as of this encounter (statuses as of 05/02/2023) [facility] History of Past illness Narrative* Problem Noted Date Diagnosed Date Resolved Date AK (actinic keratosis) 03/15/201909/10 Overview: right forearm treated with Cryo 03/2019 PTSD (post-traumatic stress disorder) 08/13/2018 09/16/2019 Plantar fasciitis of left foot 08/27/2017 09/10/2019 Plantar fasciitis of right foot 07/18/2016 09/10/2019 Family history of breast cancer 07/04/2016 09/10/2019 Mixed hyperlipidemia 05/16/2015 018 Visit for gynecologic examination 05/16/2015 04/30/2018 Overview: [facility] Insomnia 05/16/2015 04/30/2018 Personal history of colonic polyps 04/21/2013 09/10/2019 Left shoulder pain 03/11/2011 0 Routine general medical exam ination at a health care facility 01/10/2009 05/12/2013 Overview: 01/10/09 -- establish 03/06/2010, yearly check-up 03/11/2011, yearly check-up Routine Gynecological Examination 07/16/2007 05/12/2013 Overview: [facility], [facility] [place] Unspecified disorder of lipoid metabolism 05/07/2007 05/07/2007 Pain in joint, shoulder region 05/22/2006 01/10/2009 Backache, unspecified 05/22/20062008 FIBROCYSTIC BREAST DZ 2019 Overview: S/P BIOPSY, in [place] ([facility]) -- negative Urge incontinence 04/30/2018 Ptosis, left eyelid 04/30/20 18 Overview: benign documented as of this encounter (statuses as of 05/15/2023) [facility] History of Past illness Narrative* Problem Noted Date Diagnosed Date Resolved Date AK (actinic keratosis) 03/15/201909/10 Overview: right forearm treated with Cryo 03/2019 PTSD (post-traumatic stress disorder) 08/13/2018 09/16/2019 Plantar fasciitis of left foot 08/27/2017 09/10/2019 Plantar fasciitis of right foot 07/18/2016 09/10/2019 Family history of breast cancer 07/04/2016 09/10/2019 Mixed hyperlipidemia 05/16/2015 018 Visit for gynecologic examination 05/16/2015 04/30/2018 Overview: [facility] Insomnia 05/16/2015 04/30/2018 Personal history of colonic polyps 04/21/2013 09/10/2019 Left shoulder pain 03/11/2011 0 Routine general medical exam ination at a health care facility 01/10/2009 05/12/2013 Overview: 01/10/09 -- establish 03/06/2010, yearly check-up 03/11/2011, yearly check-up Routine Gynecological Examination 07/16/2007 05/12/2013 Overview: [facility], [facility] [place] Unspecified disorder of lipoid metabolism 05/07/2007 05/07/2007 Pain in joint, shoulder region 05/22/2006 01/10/2009 Backache, unspecified 05/22/20062008 FIBROCYSTIC BREAST DZ 2019 Overview: S/P BIOPSY, in [place] ([facility]) -- negative Urge incontinence 04/30/2018 Ptosis, left eyelid 04/30/20 18 Overview: benign documented as of this encounter (statuses as of 05/19/2023) [facility] History of Past illness Narrative* Problem Noted Date Diagnosed Date Resolved Date AK (actinic keratosis) 03/15/201909/10 Overview: right forearm treated with Cryo 03/2019 PTSD (post-traumatic stress disorder) 08/13/2018 09/16/2019 Plantar fasciitis of left foot 08/27/2017 09/10/2019 Plantar fasciitis of right foot 07/18/2016 09/10/2019 Family history of breast cancer 07/04/2016 09/10/2019 Mixed hyperlipidemia 05/16/2015 018 Visit for gynecologic examination 05/16/2015 04/30/2018 Overview: [facility] Insomnia 05/16/2015 04/30/2018 Personal history of colonic polyps 04/21/2013 09/10/2019 Left shoulder pain 03/11/2011 0 Routine general medical exam ination at a health care facility 01/10/2009 05/12/2013 Overview: 01/10/09 -- establish 03/06/2010, yearly check-up 03/11/2011, yearly check-up Routine Gynecological Examination 07/16/2007 05/12/2013 Overview: [facility], [facility] [place] Unspecified disorder of lipoid metabolism 05/07/2007 05/07/2007 Pain in joint, shoulder region 05/22/2006 01/10/2009 Backache, unspecified 05/22/20062008 FIBROCYSTIC BREAST DZ 2019 Overview: S/P BIOPSY, in [place] ([facility]) -- negative Urge incontinence 04/30/2018 Ptosis, left eyelid 04/30/20 18 Overview: benign documented as of this encounter (statuses as of 05/26/2023) [facility] History of Past illness Narrative* Problem Noted Date Diagnosed Date Resolved Date AK (actinic keratosis) 03/15/201909/10 Overview: right forearm treated with Cryo 03/2019 PTSD (post-traumatic stress disorder) 08/13/2018 09/16/2019 Plantar fasciitis of left foot 08/27/2017 09/10/2019 Plantar fasciitis of right foot 07/18/2016 09/10/2019 Family history of breast cancer 07/04/2016 09/10/2019 Mixed hyperlipidemia 05/16/2015 018 Visit for gynecologic examination 05/16/2015 04/30/2018 Overview: [facility] Insomnia 05/16/2015 04/30/2018 Personal history of colonic polyps 04/21/2013 09/10/2019 Left shoulder pain 03/11/2011 0 Routine general medical exam ination at a health care facility 01/10/2009 05/12/2013 Overview: 01/10/09 -- establish 03/06/2010, yearly check-up 03/11/2011, yearly check-up Routine Gynecological Examination 07/16/2007 05/12/2013 Overview: [facility], [facility] [place] Unspecified disorder of lipoid metabolism 05/07/2007 05/07/2007 Pain in joint, shoulder region 05/22/2006 01/10/2009 Backache, unspecified 05/22/20062008 FIBROCYSTIC BREAST DZ 2019 Overview: S/P BIOPSY, in [place] ([facility]) -- negative Urge incontinence 04/30/2018 Ptosis, left eyelid 04/30/20 18 Overview: benign documented as of this encounter (statuses as of 05/27/2023) [facility] History of Past illness Narrative* Problem Noted Date Diagnosed Date Resolved Date AK (actinic keratosis) 03/15/201909/10 Overview: right forearm treated with Cryo 03/2019 PTSD (post-traumatic stress disorder) 08/13/2018 09/16/2019 Plantar fasciitis of left foot 08/27/2017 09/10/2019 Plantar fasciitis of right foot 07/18/2016 09/10/2019 Family history of breast cancer 07/04/2016 09/10/2019 Mixed hyperlipidemia 05/16/2015 018 Visit for gynecologic examination 05/16/2015 04/30/2018 Overview: [facility] Insomnia 05/16/2015 04/30/2018 Personal history of colonic polyps 04/21/2013 09/10/2019 Left shoulder pain 03/11/2011 0 Routine general medical exam ination at a health care facility 01/10/2009 05/12/2013 Overview: 01/10/09 -- establish 03/06/2010, yearly check-up 03/11/2011, yearly check-up Routine Gynecological Examination 07/16/2007 05/12/2013 Overview: [facility], [facility] [place] Unspecified disorder of lipoid metabolism 05/07/2007 05/07/2007 Pain in joint, shoulder region 05/22/2006 01/10/2009 Backache, unspecified 05/22/20062008 FIBROCYSTIC BREAST DZ 2019 Overview: S/P BIOPSY, in [place] ([facility]) -- negative Urge incontinence 04/30/2018 Ptosis, left eyelid 04/30/20 18 Overview: benign documented as of this encounter (statuses as of 06/19/2023) [facility] History of Past illness Narrative* Problem Noted Date Diagnosed Date Resolved Date AK (actinic keratosis) 03/15/201909/10 Overview: right forearm treated with Cryo 03/2019 PTSD (post-traumatic stress disorder) 08/13/2018 09/16/2019 Plantar fasciitis of left foot 08/27/2017 09/10/2019 Plantar fasciitis of right foot 07/18/2016 09/10/2019 Family history of breast cancer 07/04/2016 09/10/2019 Mixed hyperlipidemia 05/16/2015 018 Visit for gynecologic examination 05/16/2015 04/30/2018 Overview: [facility] Insomnia 05/16/2015 04/30/2018 Personal history of colonic polyps 04/21/2013 09/10/2019 Left shoulder pain 03/11/2011 0 Routine general medical exam ination at a health care facility 01/10/2009 05/12/2013 Overview: 01/10/09 -- establish 03/06/2010, yearly check-up 03/11/2011, yearly check-up Routine Gynecological Examination 07/16/2007 05/12/2013 Overview: [facility], [facility] [place] Unspecified disorder of lipoid metabolism 05/07/2007 05/07/2007 Pain in joint, shoulder region 05/22/2006 01/10/2009 Backache, unspecified 05/22/20062008 FIBROCYSTIC BREAST DZ 2019 Overview: S/P BIOPSY, in [place] ([facility]) -- negative Urge incontinence 04/30/2018 Ptosis, left eyelid 04/30/20 18 Overview: benign documented as of this encounter (statuses as of 06/23/2023) [facility] History of Past illness Narrative* Problem Noted Date Diagnosed Date Resolved Date AK (actinic keratosis) 03/15/201909/10 Overview: right forearm treated with Cryo 03/2019 PTSD (post-traumatic stress disorder) 08/13/2018 09/16/2019 Plantar fasciitis of left foot 08/27/2017 09/10/2019 Plantar fasciitis of right foot 07/18/2016 09/10/2019 Family history of breast cancer 07/04/2016 09/10/2019 Mixed hyperlipidemia 05/16/2015 018 Visit for gynecologic examination 05/16/2015 04/30/2018 Overview: [facility] Insomnia 05/16/2015 04/30/2018 Personal history of colonic polyps 04/21/2013 09/10/2019 Left shoulder pain 03/11/2011 0 Routine general medical exam ination at a health care facility 01/10/2009 05/12/2013 Overview: 01/10/09 -- establish 03/06/2010, yearly check-up 03/11/2011, yearly check-up Routine Gynecological Examination 07/16/2007 05/12/2013 Overview: [facility] [place] Unspecified disorder of lipoid metabolism 05/07/2007 05/07/2007 Pain in joint, shoulder region 05/22/2006 01/10/2009 Backache, unspecified 05/22/20062008 FIBROCYSTIC BREAST DZ 2019 Overview: S/P BIOPSY, in [place] ([facility]) -- negative Urge incontinence 04/30/2018 Ptosis, left eyelid 04/30/20 Overview: benign documented as of this encounter (statuses as of 07/04/2023) [facility] History of Past illness Narrative* Problem Noted Date Diagnosed Date Resolved Date AK (actinic keratosis) 03/15/201909/10 Overview: right forearm treated with Cryo 03/2019 PTSD (post-traumatic stress disorder) 08/13/2018 09/16/2019 Plantar fasciitis of left foot 08/27/2017 09/10/2019 Plantar fasciitis of right foot 07/18/2016 09/10/2019 Family history of breast cancer 07/04/2016 09/10/2019 Mixed hyperlipidemia 05/16/2015 018 Visit for gynecologic examination 05/16/2015 04/30/2018 Overview: [facility] Insomnia 05/16/2015 04/30/2018 Personal history of colonic polyps 04/21/2013 09/10/2019 Left shoulder pain 03/11/2011 0 Routine general medical exam ination at a health care facility 01/10/2009 05/12/2013 Overview: 01/10/09 -- establish 03/06/2010, yearly check-up 03/11/2011, yearly check-up Routine Gynecological Examination 07/16/2007 05/12/2013 Overview: [facility], [facility] [place] Unspecified disorder of lipoid metabolism 05/07/2007 05/07/2007 Pain in joint, shoulder region 05/22/2006 01/10/2009 Backache, unspecified 05/22/20062008 FIBROCYSTIC BREAST DZ 2019 Overview: S/P BIOPSY, in [place] ([facility]) -- negative Urge incontinence 04/30/2018 Ptosis, left eyelid 04/30/20 18 Overview: benign documented as of this encounter (statuses as of 07/09/2023) [facility] History of Past illness Narrative* Problem Noted Date Diagnosed Date Resolved Date AK (actinic keratosis) 03/15/201909/10 Overview: right forearm treated with Cryo 03/2019 PTSD (post-traumatic stress disorder) 08/13/2018 09/16/2019 Plantar fasciitis of left foot 08/27/2017 09/10/2019 Plantar fasciitis of right foot 07/18/2016 09/10/2019 Family history of breast cancer 07/04/2016 09/10/2019 Mixed hyperlipidemia 05/16/2015 018 Visit for gynecologic examination 05/16/2015 04/30/2018 [facility] 05[facility]16/2015 04/30/2018 Personal history of colonic polyps 04/21/2013 09/10/2019 Left shoulder pain 03/11/2011 0 Routine general medical exam ination at a health care facility 01/10/2009 05/12/2013 Overview: 01/10/09 -- establish 03/06/2010, yearly check-up 03/11/2011, yearly check-up Routine Gynecological Examination 07/16/2007 05/12/2013 Overview: [facility], [facility] [place] Unspecified disorder of lipoid metabolism 05/07/2007 05/07/2007 Pain in joint, shoulder region 05/22/2006 01/10/2009 Backache, unspecified 05/22/20062008 FIBROCYSTIC BREAST DZ 2019 Overview: S/P BIOPSY, [facility] [place] [facility] -- negative Urge incontinence 04/30/2018 Ptosis, left eyelid 04/30/20 Overview: benign documented as of this encounter (statuses as of 09/09/2023) [facility] History of Past illness Narrative* Problem Noted Date Diagnosed Date Resolved Date AK (actinic keratosis) 03/15/201909/10 Overview: right forearm treated with Cryo 03/2019 PTSD (post-traumatic stress disorder) 08/13/2018 09/16/2019 Plantar fasciitis of left foot 08/27/2017 09/10/2019 Plantar fasciitis of right foot 07/18/2016 09/10/2019 Family history of breast cancer 07/04/2016 09/10/2019 Mixed hyperlipidemia 05/16/2015 018 Visit for gynecologic examination 05/16/2015 04/30/2018 Overview: [facility] Insomnia 05/16/2015 04/30/2018 Personal history of colonic polyps 04/21/2013 09/10/2019 Left shoulder pain 03/11/2011 0 Routine general medical exam ination at a health care facility 01/10/2009 05/12/2013 Overview: 01/10/09 -- establish 03/06/2010, yearly check-up 03/11/2011, yearly check-up Routine Gynecological Examination 07/16/2007 05/12/2013 Overview: [facility], [facility] [place] Unspecified disorder of lipoid metabolism 05/07/2007 05/07/2007 Pain in joint, shoulder region 05/22/2006 01/10/2009 Backache, unspecified 05/22/20062008 FIBROCYSTIC BREAST DZ 2019 Overview: S/P BIOPSY, in [place] ([facility]) -- negative Urge incontinence 04/30/2018 Ptosis, left eyelid 04/30/20 18 Overview: benign documented as of this encounter (statuses as of 10/03/2023) [facility] History of Past illness Narrative* Problem Noted Date Diagnosed Date Resolved Date AK (actinic keratosis) 03/15/201909/10 Overview: right forearm treated with Cryo 03/2019 PTSD (post-traumatic stress disorder) 08/13/2018 09/16/2019 Plantar fasciitis of left foot 08/27/2017 09/10/2019 Plantar fasciitis of right foot 07/18/2016 09/10/2019 Family history of breast cancer 07/04/2016 09/10/2019 Mixed hyperlipidemia 05/16/2015 018 Visit for gynecologic examination 05/16/2015 04/30/2018 Overview: [facility] Insomnia 05/16/2015 04/30/2018 Personal history of colonic polyps 04/21/2013 09/10/2019 Left shoulder pain 03/11/2011 0 Routine general medical exam ination at a health care facility 01/10/2009 05/12/2013 Overview: 01/10/09 -- establish 03/06/2010, yearly check-up 03/11/2011, yearly check-up Routine Gynecological Examination 07/16/2007 05/12/2013 Overview: [facility], [facility] Unspecified disorder of lipoid metabolism 05/07/2007 05/07/2007 Pain in joint, shoulder region 05/22/2006 01/10/2009 Backache, unspecified 05/22/20062008 FIBROCYSTIC BREAST DZ 2019 Overview: S/P BIOPSY, in [place] ([facility]) -- negative Urge incontinence 04/30/2018 Ptosis, left eyelid 04/30/20 18 Overview: benign documented as of this encounter (statuses as of 10/09/2023) [facility] History of Past illness Narrative* Problem Noted Date Diagnosed Date Resolved Date AK (actinic keratosis) 03/15/201909/10 Overview: right forearm treated with Cryo 03/2019 PTSD (post-traumatic stress disorder) 08/13/2018 09/16/2019 Plantar fasciitis of left foot 08/27/2017 09/10/2019 Plantar fasciitis of right foot 07/18/2016 09/10/2019 Family history of breast cancer 07/04/2016 09/10/2019 Mixed hyperlipidemia 05/16/2015 018 Visit for gynecologic examination 05/16/2015 04/30/2018 Overview: [facility] Insomnia 05/16/2015 04/30/2018 Personal history of colonic polyps 04/21/2013 09/10/2019 Left shoulder pain 03/11/2011 0 Routine general medical exam ination at a health care facility 01/10/2009 05/12/2013 Overview: 01/10/09 -- establish 03/06/2010, yearly check-up 03/11/2011, yearly check-up Routine Gynecological Examination 07/16/2007 05/12/2013 Overview: [facility], [facility] [place] Unspecified disorder of lipoid metabolism 05/07/2007 05/07/2007 Pain in joint, shoulder region 05/22/2006 01/10/2009 Backache, unspecified 05/22/20062008 FIBROCYSTIC BREAST DZ 2019 Overview: S/P BIOPSY, in [place] ([facility]) -- negative Urge incontinence 04/30/2018 Ptosis, left eyelid 04/30/20 18 Overview: benign documented as of this encounter (statuses as of 10/10/2023) [facility] History of Past illness Narrative* Problem Noted Date Diagnosed Date Resolved Date AK (actinic keratosis) 03/15/201909/10 Overview: right forearm treated with Cryo 03/2019 PTSD (post-traumatic stress disorder) 08/13/2018 09/16/2019 Plantar fasciitis of left foot 08/27/2017 09/10/2019 Plantar fasciitis of right foot 07/18/2016 09/10/2019 Family history of breast cancer 07/04/2016 09/10/2019 Mixed hyperlipidemia 05/16/2015 018 Visit for gynecologic examination 05/16/2015 04/30/2018 Overview: [facility] Insomnia 05/16/2015 04/30/2018 Personal history of colonic polyps 04/21/2013 09/10/2019 Left shoulder pain 03/11/2011 0 Routine general medical exam ination at a health care facility 01/10/2009 05/12/2013 Overview: 01/10/09 -- establish 03/06/2010, yearly check-up 03/11/2011, yearly check-up Routine Gynecological Examination 07/16/2007 05/12/2013 Overview: [facility] Unspecified disorder of lipoid metabolism 05/07/2007 05/07/2007 Pain in joint, shoulder region 05/22/2006 01/10/2009 Backache, unspecified 05/22/20062008 FIBROCYSTIC BREAST DZ 2019 Overview: S/P BIOPSY, in [place] ([facility]) -- negative Urge incontinence 04/30/2018 Ptosis, left eyelid 04/30/20 18 Overview: benign documented as of this encounter (statuses as of 10/14/2023) [facility] History of Past illness Narrative* Problem Noted Date Diagnosed Date Resolved Date AK (actinic keratosis) 03/15/201909/10 Overview: right forearm treated with Cryo 03/2019 PTSD (post-traumatic stress disorder) 08/13/2018 09/16/2019 Plantar fasciitis of left foot 08/27/2017 09/10/2019 Plantar fasciitis of right foot 07/18/2016 09/10/2019 Family history of breast cancer 07/04/2016 09/10/2019 Mixed hyperlipidemia 05/16/2015 018 Visit for gynecologic examination 05/16/2015 04/30/2018 Overview: [facility] Insomnia 05/16/2015 04/30/2018 Personal history of colonic polyps 04/21/2013 09/10/2019 Left shoulder pain 03/11/2011 0 Routine general medical exam ination at a health care facility 01/10/2009 05/12/2013 Overview: 01/10/09 -- establish 03/06/2010, yearly check-up 03/11/2011, yearly check-up Routine Gynecological Examination 07/16/2007 05/12/2013 Overview: [facility], [facility] Unspecified disorder of lipoid metabolism 05/07/2007 05/07/2007 Pain in joint, shoulder region 05/22/2006 01/10/2009 Backache, unspecified 05/22/20062008 FIBROCYSTIC BREAST DZ 2019 Overview: S/P BIOPSY, in [place] ([facility]) -- negative Urge incontinence 04/30/2018 Ptosis, left eyelid 04/30/20 18 Overview: benign documented as of this encounter (statuses as of 10/24/2023) [facility] History of Past illness Narrative* Problem Noted Date Diagnosed Date Resolved Date AK (actinic keratosis) 03/15/201909/10 Overview: right forearm treated with Cryo 03/2019 PTSD (post-traumatic stress disorder) 08/13/2018 09/16/2019 Plantar fasciitis of left foot 08/27/2017 09/10/2019 Plantar fasciitis of right foot 07/18/2016 09/10/2019 Family history of breast cancer 07/04/2016 09/10/2019 Mixed hyperlipidemia 05/16/2015 018 Visit for gynecologic examination 05/16/2015 04/30/2018 Overview: [facility] Insomnia 05/16/2015 04/30/2018 Personal history of colonic polyps 04/21/2013 09/10/2019 Left shoulder pain 03/11/2011 0 Routine general medical exam ination at a health care facility 01/10/2009 05/12/2013 Overview: 01/10/09 -- establish 03/06/2010, yearly check-up 03/11/2011, yearly check-up Routine Gynecological Examination 07/16/2007 05/12/2013 Overview: [facility], [facility] Unspecified disorder of lipoid metabolism 05/07/2007 05/07/2007 Pain in joint, shoulder region 05/22/2006 01/10/2009 Backache, unspecified 05/22/20062008 FIBROCYSTIC BREAST DZ 2019 Overview: S/P BIOPSY, in [place] ([facility]) -- negative Urge incontinence 04/30/2018 Ptosis, left eyelid 04/30/20 18 Overview: benign documented as of this encounter (statuses as of 10/24/2023) [facility] History of Past illness Narrative* Problem Noted Date Diagnosed Date Resolved Date AK (actinic keratosis) 03/15/201909/10 Overview: right forearm treated with Cryo 03/2019 PTSD (post-traumatic stress disorder) 08/13/2018 09/16/2019 Plantar fasciitis of left foot 08/27/2017 09/10/2019 Plantar fasciitis of right foot 07/18/2016 09/10/2019 Family history of breast cancer 07/04/2016 09/10/2019 Mixed hyperlipidemia 05/16/2015 018 Visit for gynecologic examination 05/16/2015 04/30/2018 Overview: [facility] Insomnia 05/16/2015 04/30/2018 Personal history of colonic polyps 04/21/2013 09/10/2019 Left shoulder pain 03/11/2011 0 Routine general medical exam ination at a health care facility 01/10/2009 05/12/2013 Overview: 01/10/09 -- establish 03/06/2010, yearly check-up 03/11/2011, yearly check-up Routine Gynecological Examination 07/16/2007 05/12/2013 Overview: [facility], [facility] Unspecified disorder of lipoid metabolism 05/07/2007 05/07/2007 Pain in joint, shoulder region 05/22/2006 01/10/2009 Backache, unspecified 05/22/20062008 FIBROCYSTIC BREAST DZ 2019 Overview: S/P BIOPSY, in [place] ([facility]) -- negative Urge incontinence 04/30/2018 Ptosis, left eyelid 04/30/20 18 Overview: benign documented as of this encounter (statuses as of 11/19/2023) [facility] History of Past illness Narrative* Problem Noted Date Diagnosed Date Resolved Date AK (actinic keratosis) 03/15/201909/10 Overview: right forearm treated with Cryo 03/2019 PTSD (post-traumatic stress disorder) 08/13/2018 09/16/2019 Plantar fasciitis of left foot 08/27/2017 09/10/2019 Plantar fasciitis of right foot 07/18/2016 09/10/2019 Family history of breast cancer 07/04/2016 09/10/2019 Mixed hyperlipidemia 05/16/2015 018 Visit for gynecologic examination 05/16/2015 04/30/2018 Overview: [facility] Insomnia 05/16/2015 04/30/2018 Personal history of colonic polyps 04/21/2013 09/10/2019 Left shoulder pain 03/11/2011 0 Routine general medical exam ination at a health care facility 01/10/2009 05/12/2013 Overview: 01/10/09 -- establish 03/06/2010, yearly check-up 03/11/2011, yearly check-up Routine Gynecological Examination 07/16/2007 05/12/2013 Overview: [facility] Unspecified disorder of lipoid metabolism 05/07/2007 05/07/2007 Pain in joint, shoulder region 05/22/2006 01/10/2009 Backache, unspecified 05/22/20062008 FIBROCYSTIC BREAST DZ 2019 Overview: S/P BIOPSY, in [place] ([facility]) -- negative Urge incontinence 04/30/2018 Ptosis, left eyelid 04/30/20 Overview: benign documented as of this encounter (statuses as of 11/21/2023) [facility] Diagnosis 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 Other primary cardiomyopathies Sinus node dysfunction (HCC) Sinoatrial node dysfunction 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 Personal history of other diseases of circulatory system [facility] Diagnosis Acute otitis media, left- Primary Unspecified otitis media URI, acute Acute upper respiratory infections of unspecified site [facility] Diagnosis Sinobronchitis- Primary Unspecified sinusitis (chronic) [facility]* Diagnosis 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 Other primary cardiomyopathies Hypertension, essential Unspecified essential hypertension Arrhythmogenic right ventricular dysplasia (HCC) Other specified congenital anomaly of heart Presence of combination internal cardiac defibrillator (ICD) and pacemaker Mixed hyperlipidemia Sinus node dysfunction (HCC) Sinoatrial node dysfunction Nonrheumatic tricuspid valve regurgitation Tricuspid valve disorders, specified as nonrheumatic [facility] Diagnosis Well adult exam- Primary Routine general medical examination at a health care facility Mixed hyperlipidemia Depression with anxiety Dysthymic disorder PTSD (post-traumatic stress disorder) Posttraumatic stress disorder Arrhythmogenic right ventricular cardiomyopathy (HCC) Other primary cardiomyopathies 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) Sinus node dysfunction (HCC) Sinoatrial node dysfunction Osteopenia, unspecified location AK (actinic keratosis) Actinic keratosis [facility] Diagnosis 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 Other primary cardiomyopathies Hypertension, essential Unspecified essential hypertension [facility] Diagnosis Arrhythmogenic right ventricular cardiomyopathy (HCC) Other primary cardiomyopathies Hypertension, essential Unspecified essential hypertension Arrhythmogenic right ventricular dysplasia (HCC) Other specified congenital anomaly of heart Presence of combination internal cardiac defibrillator (ICD) and pacemaker [facility] Diagnosis Osteopenia, unspecified location [facility] Diagnosis Osteopenia, unspecified location [facility] Diagnosis Acute constipation- Primary Unspecified constipation Left lower quadrant abdominal pain Mixed hyperlipidemia [facility] Diagnosis Need for vaccination- Primary Need for prophylactic vaccination and inoculation against unspecified single disease [facility] Diagnosis Chronic constipation- Primary Unspecified constipation LLQ pain Abdominal pain, left lower quadrant [facility] Diagnosis Left lower quadrant abdominal pain- Primary [facility] Diagnosis Chronic systolic heart failure (HCC)- Primary Chronic systolic heart failure [facility] Diagnosis 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 Other primary cardiomyopathies Hypertension, essential Unspecified essential hypertension Arrhythmogenic right ventricular dysplasia (HCC) Other specified congenital anomaly of heart Presence of combination internal cardiac defibrillator (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) Mixed hyperlipidemia Sinus node dysfunction (HCC) Sinoatrial node dysfunction Nonrheumatic tricuspid valve regurgitation Tricuspid valve disorders, specified as nonrheumatic PTSD (post-traumatic stress disorder) Posttraumatic stress disorder [facility] Diagnosis Chronic constipation- Primary Unspecified constipation Abdominal pain, unspecified abdominal location [facility] Diagnosis Mixed hyperlipidemia- Primary 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) Sinus node dysfunction (HCC) Sinoatrial node dysfunction PTSD (post-traumatic stress disorder) Posttraumatic stress disorder Depression with anxiety Dysthymic disorder Congestive heart failure, unspecified HF chronicity, unspecified heart failure type (HCC) Chronic constipation Unspecified constipation Left sided abdominal pain Abdominal pain, unspecified site Medication management Encounter for long-term (current) use of other medications [facility] Diagnosis Perforated tympanic membrane, left- Primary [facility]* Diagnosis 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 Other primary cardiomyopathies Sinus node dysfunction (HCC) Sinoatrial node dysfunction NSVT (nonsustained ventricular tachycardia) (HCC) Paroxysmal ventricular tachycardia Presence of combination internal cardiac defibrillator (ICD) and pacemaker Hypertension, essential Unspecified essential hypertension History of sustained ventricular tachycardia Personal history of other diseases of circulatory system [facility] Diagnosis Arrhythmogenic right ventricular cardiomyopathy (HCC) Other primary cardiomyopathies Hypertension, essential Unspecified essential hypertension Arrhythmogenic right ventricular dysplasia (HCC) Other specified congenital anomaly of heart Presence of combination internal cardiac defibrillator (ICD) and pacemaker [facility] Diagnosis Muscle strain of left scapular region, initial encounter- Primary [facility]* Diagnosis Arrhythmogenic right ventricular cardiomyopathy (HCC) Other primary cardiomyopathies Hypertension, essential Unspecified essential hypertension Arrhythmogenic right ventricular dysplasia (HCC) Other specified congenital anomaly of heart Presence of combination internal cardiac defibrillator (ICD) and pacemaker [facility] Diagnosis Arrhythmogenic right ventricular cardiomyopathy (HCC) Other primary cardiomyopathies Hypertension, essential Unspecified essential hypertension Arrhythmogenic right ventricular dysplasia (HCC) Other specified congenital anomaly of heart Presence of combination internal cardiac defibrillator (ICD) and pacemaker [facility] Diagnosis Foot pain, bilateral- Primary Pain in limb [facility]* Diagnosis SOB (shortness of breath)- Primary Shortness of breath [facility]* Diagnosis Posterior tibial tendon dysfunction- Primary Other disorders of synovium, tendon, and bursa Foot pain, bilateral Pain in limb Pes planus of both feet Callus of foot Corns and callosities [facility]* Diagnosis Well adult exam- Primary Routine general medical examination at a health care facility Mixed hyperlipidemia Depression with anxiety Dysthymic disorder PTSD (post-traumatic stress disorder) Posttraumatic stress disorder 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) Sinus node dysfunction (HCC) Sinoatrial node dysfunction Nonrheumatic tricuspid valve regurgitation Tricuspid valve disorders, specified as nonrheumatic Congestive heart failure, unspecified HF chronicity, unspecified heart failure type (HCC) Chronic constipation Unspecified constipation Urge incontinence Elevated blood sugar Other abnormal glucose Encounter for immunization Need for other specified prophylactic vaccination against single bacterial disease Balance problem Other symptoms involving nervous and musculoskeletal systems Heat intolerance Unspecified effects of heat and light Encounter for gynecological examination Esophageal dysphagia Dysphagia, pharyngoesophageal phase [facility] Diagnosis Posterior tibialis tendinitis of both lower extremities- Primary Pes planus of both feet [facility]* Diagnosis Gastroesophageal reflux disease without esophagitis Esophageal reflux [facility] Diagnosis Acute left flank pain- Primary Abdominal pain, unspecified site Urinary urgency Urgency of urination Weight gain Abnormal weight gain [facility] Diagnosis Arrhythmogenic right ventricular cardiomyopathy (HCC) Other primary cardiomyopathies Arrhythmogenic right ventricular cardiomyopathy (HCC) Other primary cardiomyopathies Hypertension, essential Unspecified essential hypertension Arrhythmogenic right ventricular dysplasia (HCC) Other specified congenital anomaly of heart Presence of combination internal cardiac defibrillator (ICD) and pacemaker [facility] Diagnosis Encounter for immunization- Primary Need for other specified prophylactic vaccination against single bacterial disease Avulsion of skin of finger, initial encounter [facility]* Diagnosis Arrhythmogenic right ventricular cardiomyopathy (HCC) Other primary cardiomyopathies Chronic heart failure with preserved ejection fraction (HFpEF) (HCC) [facility] Diagnosis Encounter for gynecological examination (general) (routine) without abnormal findings- Primary Encounter for gynecological examination Encounter for screening mammogram for breast cancer Dense breast tissue [facility] Diagnosis Encounter for gynecological examination (general) (routine) without abnormal findings Encounter for screening mammogram for breast cancer [facility]* Diagnosis Sensorineural hearing loss (SNHL) of both ears- Primary History of exposure to noise Tinnitus of both ears Unspecified tinnitus [facility]* Diagnosis Sensorineural hearing loss, bilateral- Primary Dizziness Dizziness and giddiness Tinnitus, bilateral Unspecified tinnitus History of exposure to noise [facility]* Diagnosis Chronic diastolic (congestive) heart failure (HCC)- Primary Arrhythmogenic right ventricular cardiomyopathy (HCC) Other primary cardiomyopathies 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) Chronic heart failure with preserved ejection fraction (HFpEF) (HCC) Presence of combination internal cardiac defibrillator (ICD) and pacemaker Mixed hyperlipidemia Nonrheumatic tricuspid valve regurgitation Tricuspid valve disorders, specified as nonrheumatic [facility]* Diagnosis [id number]- Primary [facility] Diagnosis Chronic systolic heart failure (HCC)- Primary Chronic systolic heart failure Examination of participant in clinical trial [facility]* Diagnosis Injury of nose, initial encounter- Primary Injury of nose, initial encounter [facility]* Diagnosis Injury of nose, initial encounter- Primary Closed fracture of nasal bone, initial encounter [facility]* Diagnosis Closed fracture of nasal bone, initial encounter Nasal obstruction Other diseases of nasal cavity and sinuses Deviated nasal septum Hypertrophy of nasal turbinates [facility]* Diagnosis Chronic systolic heart failure (HCC)- Primary Chronic systolic heart failure Pacemaker reprogramming/check Fitting and adjustment of cardiac pacemaker [facility]* Diagnosis 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- Primary Neoplasm of uncertain behavior of skin Cellulitis of abdominal wall Cellulitis and abscess of trunk Pacemaker reprogramming/check Fitting and adjustment of cardiac pacemaker [facility]* Diagnosis Injury of nose, initial encounter Diastolic congestive heart failure, unspecified HF chronicity (HCC)- Primary Pacemaker reprogramming/check Fitting and adjustment of cardiac pacemaker [facility]* Diagnosis Arrhythmogenic right ventricular cardiomyopathy (HCC) Other primary cardiomyopathies Hypertension, essential Unspecified essential hypertension Arrhythmogenic right ventricular dysplasia (HCC) Other specified congenital anomaly of heart Presence of combination internal cardiac defibrillator (ICD) and pacemaker Pacemaker reprogramming/check Fitting and adjustment of cardiac pacemaker [facility]* Diagnosis Abdominal pain, unspecified abdominal location Chronic constipation Unspecified constipation Pacemaker reprogramming/check Fitting and adjustment of cardiac pacemaker [facility] Diagnosis Acute constipation Unspecified constipation Left lower quadrant abdominal pain Pacemaker reprogramming/check Fitting and adjustment of cardiac pacemaker [facility] Diagnosis Chronic diastolic heart failure (HCC)- Primary Chronic diastolic heart failure Arrhythmogenic right ventricular cardiomyopathy (HCC) Other primary cardiomyopathies 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) Chronic heart failure with preserved ejection fraction (HFpEF) (HCC) Chronic diastolic (congestive) heart failure (HCC) Nonrheumatic tricuspid valve regurgitation Tricuspid valve disorders, specified as nonrheumatic Presence of combination internal cardiac defibrillator (ICD) and pacemaker Hypertension, essential Unspecified essential hypertension Arrhythmogenic right ventricular dysplasia (HCC) Other specified congenital anomaly of heart Pacemaker reprogramming/check Fitting and adjustment of cardiac pacemaker [facility] Diagnosis Well adult exam- Primary Routine general medical examination at a health care facility Mixed hyperlipidemia Elevated blood sugar Other abnormal glucose Gastroesophageal reflux disease without esophagitis Esophageal reflux 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) Other primary cardiomyopathies Chronic diastolic heart failure (HCC) Chronic diastolic heart failure Presence of combination internal cardiac defibrillator (ICD) and pacemaker Sinus node dysfunction (HCC) Sinoatrial node dysfunction Depression with anxiety Dysthymic disorder PTSD (post-traumatic stress disorder) Posttraumatic stress disorder Urge incontinence Pacemaker reprogramming/check Fitting and adjustment of cardiac pacemaker [facility] Diagnosis Encounter for screening mammogram for malignant neoplasm of breast- Primary Other screening mammogram Pacemaker reprogramming/check Fitting and adjustment of cardiac pacemaker [facility] Diagnosis Sprain of ligament of left ankle, initial encounter- Primary Pacemaker reprogramming/check Fitting and adjustment of cardiac pacemaker [facility] Diagnosis Sprain of ligament of left ankle, initial encounter- Primary Pacemaker reprogramming/check Fitting and adjustment of cardiac pacemaker [id number]- Primary Chronic diastolic heart failure (HCC)- Primary Chronic diastolic heart failure Examination of participant in clinical trial [facility] Diagnosis Chronic diastolic heart failure (HCC)- Primary Chronic diastolic heart failure Examination of participant in clinical trial [facility] Diagnosis ICD (implantable cardioverter-defibrillator) in place- Primary Automatic implantable cardiac defibrillator in situ Arrhythmogenic right ventricular cardiomyopathy (HCC) Other primary cardiomyopathies 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) Chronic diastolic (congestive) heart failure (HCC) Nonrheumatic tricuspid valve regurgitation Tricuspid valve disorders, specified as nonrheumatic Sinus node dysfunction (HCC) Sinoatrial node dysfunction NSVT (nonsustained ventricular tachycardia) (HCC) Paroxysmal ventricular tachycardia [facility] Diagnosis Chronic diastolic (congestive) heart failure (HCC)- Primary Examination of participant in clinical trial [facility] Diagnosis Research study patient - IRB #[id number] Elias [facility] PKP2 study- Primary [facility]* Diagnosis Pacemaker reprogramming/check Fitting and adjustment of cardiac pacemaker [facility]* Diagnosis Right ankle injury, initial encounter- Primary Left knee injury, initial encounter Fall, initial encounter Right ankle injury, initial encounter Left knee injury, initial encounter [facility] Diagnosis Right ankle injury, initial encounter Left knee injury, initial encounter [facility]* Diagnosis Closed avulsion fracture of distal fibula with routine healing, right- Primary Right ankle injury, initial encounter Unspecified fall, initial encounter [facility] Diagnosis Mixed hyperlipidemia- Primary Elevated blood sugar Other abnormal glucose Gastroesophageal reflux disease without esophagitis Esophageal reflux 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) Other primary cardiomyopathies Chronic diastolic heart failure (HCC) Chronic diastolic heart failure Presence of combination internal cardiac defibrillator (ICD) and pacemaker Sinus node dysfunction (HCC) Sinoatrial node dysfunction Nonrheumatic tricuspid valve regurgitation Tricuspid valve disorders, specified as nonrheumatic PTSD (post-traumatic stress disorder) Posttraumatic stress disorder Depression with anxiety Dysthymic disorder Bee sting allergy Allergy to insects and arachnids Medication management Encounter for long-term (current) use of other medications AK (actinic keratosis) Actinic keratosis Rib pain on right side Chest pain, unspecified [facility] Diagnosis Osteopenia, unspecified location- Primary [facility] Diagnosis Closed avulsion fracture of distal fibula with routine healing, right- Primary [facility]* Diagnosis Closed avulsion fracture of distal fibula with routine healing, right- Primary [facility]* Diagnosis Closed avulsion fracture of distal fibula with routine healing, right [facility]* Diagnosis Left ear pain- Primary Otalgia, unspecified Dysfunction of left eustachian tube Dysfunction of Eustachian tube documented [facility]* Diagnosis Ear pressure, left- Primary Other specified hearing loss, unspecified ear [facility]* Diagnosis Sensorineural hearing loss (SNHL) of both ears- Primary History of exposure to noise Tinnitus of both ears Unspecified tinnitus documented [facility]* Diagnosis Closed avulsion fracture of distal end of right fibula with routine healing- Primary [facility]* Diagnosis Osteopenia, unspecified location [facility]* Diagnosis Closed avulsion fracture of distal fibula with routine healing, right- Primary [facility]* Diagnosis Acute otitis media, left- Primary Unspecified otitis media [facility]* Diagnosis Acute otitis media, left Unspecified otitis media documented [facility]* Diagnosis Acute serous otitis media of left ear, recurrence not specified- Primary Eustachian tube disorder, left documented [facility]* Diagnosis Closed avulsion fracture of distal fibula with routine healing, right- Primary [facility]* Diagnosis Closed avulsion fracture of distal fibula with routine healing, right- Primary [facility] Diagnosis Closed avulsion fracture of distal fibula with routine healing, right- Primary [facility]* Diagnosis Abnormal mammogram- Primary Abnormal mammogram, unspecified Abnormal mammogram Abnormal mammogram, unspecified [facility]* Diagnosis Seborrheic keratoses- Primary Other seborrheic keratosis Bug bite, initial encounter [facility]* Diagnosis Closed avulsion fracture of distal fibula with routine healing, right- Primary Pacemaker reprogramming/check Fitting and adjustment of cardiac pacemaker [facility]* Diagnosis Neck pain- Primary Cervicalgia Muscle spasms of neck Spasm of muscle Snores Other dyspnea and respiratory abnormality Witnessed episode of apnea Daytime somnolence Hypersomnia, unspecified Pacemaker reprogramming/check Fitting and adjustment of cardiac pacemaker [facility] Diagnosis Neck pain Cervicalgia Pacemaker reprogramming/check Fitting and adjustment of cardiac pacemaker documented in this encounter [facility] for referral (narrative)* Outpatient Procedure (Routine) - Pending Review Specialty Diagnoses / Procedures Referred By Coni son Referred To [facility] Diagnoses Arrhythmogenic right ventricular cardiomyopathy (HCC) Procedures ECHO ECHO TTHRC R-T 2D W/WOM-MODE COMPL SPEC&COLR D Clarissa Tucker DO [address] [place] [address] [address] Referral ID Status Reason Start Date Expiration Date Visits Requested Visits Authorized [id number] Pending Review Auto-Generat ed Referral 11/01/2021 11/01/2022 1 1 [facility] for referral (narrative)* Outpatient Procedure (Routine) - Pending Review Specialty Diagnoses / Procedures Referred By Coni son Referred To [facility] Diagnoses Arrhythmogenic right ventricular cardiomyopathy (HCC) Hypertension, essential Arrhythmogenic right ventricular dysplasia (HCC) Presence of combination internal cardiac defibrillator (ICD) and pacemaker Procedures ECHO ECHO TTHRC R-T 2D W/WOM-MODE COMPL SPEC&COLR D Dave Alcala MD [address] [place] [address] [address] Referral ID Status Reason Start Date Expiration Date Visits Requested Visits Authorized [id number] Pending Review Auto-Generat ed Referral 01/31/2023 1 1 [facility] for referral (narrative)* Outpatient Procedure (Routine) - Pending Review Specialty Diagnoses / Procedures Referred By Contac t Referred To Contact [facility] Diagnoses Arrhythmogenic right ventricular cardiomyopathy (HCC) Hypertension, essential Procedures ECG COMPLETE ECG ROUTINE ECG W/LEAST 12 LDS W/I&R Clarissa Tucker DO [address] [place] [address] [id number] [place] [address] Referral ID Status Reason Start Date Expiration Date Visits Requested Visits Authorized [id number] Pending Review Auto-Generat ed Referral 2 05/14/2023 1 1 [facility] for referral (narrative)* Diagnostic Procedure Only (Routine) - Closed Specialty Diagnoses / Procedures Referred By Sophieac t Referred To Contact XR IMAGING Diagnoses Acute constipation Left lower quadrant abdominal pain Procedures XR ABDOMEN 1V SUPINE RADIOLOGIC EXAM ABDOMEN 1 VIEW Kelsie Doshi PA-C [address] [place] [address] Xr Imaging Referral ID Status Reason Start Date Expiration Date V isits Requested Visits Authorized [id number] Closed Auto-Generate d Referral 05/23/2022 06/22/2023 1 1 [facility] for referral (narrative)* Outpatient Procedure (Routine) - Pending Review Specialty Diagnoses / Procedures Referred By Coni t Referred To Contact [facility] Diagnoses Arrhythmogenic right ventricular cardiomyopathy (HCC) Hypertension, essential Arrhythmogenic right ventricular dysplasia (HCC) Presence of combination internal cardiac defibrillator (ICD) and pacemaker Procedures ECHO ECHO TTHRC R-T 2D W/WOM-MODE COMPL SPEC&COLR D Dave Alcala MD [address] [place] [address] [facility] [address] [place] [address] Referral ID Status Reason Start Date Expiration Date Visits Requested Visits Authorized [id number] Pending Review Auto-Generat ed Referral 05/04/2023 08/02/2023 1 1 [facility] for referral (narrative)* Diagnostic Procedure Only (Routine) - Pending Review Specialty Diagnoses / Procedures Referred By Contac t Referred To Contact XR IMAGING Diagnoses Abdominal pain, unspecified abdominal location Chronic constipation Procedures XR ABDOMEN 1V SUPINE RADIOLOGIC EXAM ABDOMEN 1 VIEW Arnel Hatfield MD [address] [place] [address] Xr Imaging Referral ID Status Reason Start Date Expiration Date Visits Requested Visits Authorized [id number] Pending Review Auto-Generat ed Referral 08/13/2022 09/12/2023 1 1 [facility] for referral (narrative)* Outpatient Procedure (Routine) - Pending Review Specialty Diagnoses / Procedures Referred By Contac t Referred To Contact [facility] Diagnoses Arrhythmogenic right ventricular cardiomyopathy (HCC) Hypertension, essential Arrhythmogenic right ventricular dysplasia (HCC) Presence of combination internal cardiac defibrillator (ICD) and pacemaker Procedures ECHO ECHO TTHRC R-T 2D W/WOM-MODE COMPL SPEC&COLR D Dave Alcala MD [address] [place] [address] [address] Referral ID Status Reason Start Date Expiration Date Visits Requested Visits Authorized [id number] Pending Review Auto-Generat ed Referral 07/05/2023 01/03/2024 1 1 * Outpatient Procedure (Routine) - Pending Review Specialty Diagnoses / Procedures Referred By Contac t Referred To Contact [facility] Diagnoses Arrhythmogenic right ventricular cardiomyopathy (HCC) Hypertension, essential Arrhythmogenic right ventricular dysplasia (HCC) Presence of combination internal cardiac defibrillator (ICD) and pacemaker Procedures ECG COMPLETE ECG ROUTINE ECG W/LEAST 12 LDS W/I&R Dave Alcala MD [address] [place] [address] [place] [id number] Referral ID Status Reason Start Date Expiration Date Visits Requested Visits Authorized [id number] Pending Review Auto-Generat ed Referral 07/05/2023 01/03/2024 1 1 [facility] for referral (narrative)* Outpatient Procedure (Routine) - Pending Review Specialty Diagnoses / Procedures Referred By Contac t Referred To Contact [facility] [place] Diagnoses SOB (shortness of breath) Procedures ECG COMPLETE ECG ROUTINE ECG W/LEAST 12 LDS W/I&R Clarissa Tucker DO [address] [place] [address] [place] [id number] Referral ID Status Reason Start Date Expiration Date Visits Requested Visits Authorized [id number] Pending Review Auto-Generat ed Referral 03/20/2023 03/19/2024 1 1 T [facility] for referral (narrative)* Diagnostic Procedure Only (Urgent) - Authorized Specialty Diagnoses / Procedures Referred By Contac t Referred To Contact US IMAGING Diagnoses Acute left flank pain Procedures US KIDNEY/BLADDER US RETROPERITONEAL REAL TIME W/IMAGE COMPLETE Chip Hernandez MD [address] [place] [address] Us Imaging [facility] Referral ID Status Reason Start Date Expiration Date Visits Requested Visits Authorized [id number] Authorized Auto-Generat ed Referral 07/17/2024 1 1 [facility] for referral (narrative)* Diagnostic Procedure Only (Routine) - Authorized Specialty Diagnoses / Procedures Referred By Contac t Referred To Contact BR IMAGING Diagnoses Encounter for screening mammogram for breast cancer Dense breast tissue Procedures NABILA SCREENING W DESI SCREENING DIGITAL BREAST TOMOSYNTHESIS BI SCREENING MAMMOGRAPHY BI 2-VIEW BREAST INC CAD Reese Pagan MD [address] [place] [address] Br Imaging [address] [place] [address] Referral ID Status Reason Start Date Expiration Date Visits Requested Visits Authorized [id number] Authorized Auto-Generat ed Referral OON/Self Pay Override 10/09/2023 11/07/2024 1 1 [facility] for referral (narrative)* Outpatient Procedure (Routine) - Pending Review Specialty Diagnoses / Procedures Referred By Coni son Referred To Contact [facility] [place] Diagnoses 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) Chronic heart failure with preserved ejection fraction (HFpEF) (HCC) Chronic diastolic (congestive) heart failure (HCC) Procedures ECHO ECHO TTHRC R-T 2D W/WOM-MODE COMPL SPEC[place] [address] [place] [address] [facility] [address] [address] Referral ID Status Reason Start Date Expiration Date Visits Requested Visits Authorized [id number] Pending Review Auto-Generat ed Referral 11/27/2023 11/26/2024 1 1 * Outpatient Procedure (Routine) - Pending Review Specialty Diagnoses / Procedures Referred By Coni son Referred To Contact [facility] [place] Diagnoses 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) Chronic heart failure with preserved ejection fraction (HFpEF) (HCC) Chronic diastolic (congestive) heart failure (HCC) Procedures ECG COMPLETE ECG ROUTINE ECG W/LEAST 12 LDS W/I&R Dave Alcala MD [address] [place] [address] [address] Referral ID Status Reason Start Date Expiration Date Visits Requested Visits Authorized [id number] Pending Review Auto-Generat ed Referral 11/27/2023 11/26/2024 1 1 * Transition of Care (Routine) - Ref Not Required Specialty Diagnoses / Procedures Referred By Contac t Referred To Contact [facility] [place] Diagnoses 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) Chronic heart failure with preserved ejection fraction (HFpEF) (HCC) Chronic diastolic (congestive) heart failure (HCC) Procedures CARDIOVASCULAR MEDICINE OP FOLLOW UP APPT ORDER Dave Alcala MD [address] [place] [address] [address] Referral ID Status Reason Start Date Expiration Date Visits Requested Visits Authorized [id number] Ref Not Required PCP Requested Referral 11/26/2024 1 1 [facility] for referral (narrative)* Diagnostic Procedure Only (Urgent) - Closed Specialty Diagnoses / Procedures [facility] To Contact XR IMAGING Diagnoses Injury of nose, initial encounter Procedures XR NASAL BONES 3V PA/BOTH LAT RADEX NASAL BONES COMPLETE MINIMUM 3 VIEWS Chanel Gardner APRN.CNP [address] [place] [address] Xr Imaging [facility]95 Referral ID Status Reason Start Date Expiration Date V isits Requested Visits Authorized [id number] Closed Auto-Generate d Referral 12/08/2023 01/06/2025 1 1 [facility] for referral (narrative)* Outpatient Procedure (Routine) - Pending Review Specialty Diagnoses / Procedures Referred By Contac t Referred To Contact [facility] [place] Diagnoses Chronic systolic heart failure (HCC) Procedures ECG COMPLETE ECG ROUTINE ECG W/LEAST 12 LDS W/I&R Clarissa Tucker DO [address] [place] [address] [facility] [address] [place] [address] Referral ID Status Reason Start Date Expiration Date Visits Requested Visits Authorized [id number] Pending Review Auto-Generat ed Referral 02/11/2024 2025 1 1 [facility] for referral (narrative)* Diagnostic Procedure Only (Urgent) - Closed Specialty Diagnoses / Procedures Referred By Contac t Referred To Contact XR IMAGING Diagnoses Injury of nose, initial encounter Procedures XR NASAL BONES 3V PA/BOTH LAT RADEX NASAL BONES COMPLETE MINIMUM 3 VIEWS Chanel Gardner, [employer] [address] [place] [address] Xr Imaging [facility] Referral ID Status Reason Start Date Expiration Date V isits Requested Visits Authorized [id number] Closed Auto-Generate d Referral 12/08/2023 01/06/2025 1 1 [facility] for referral (narrative)* Diagnostic Procedure Only (Routine) - Closed Specialty Diagnoses / Procedures Referred By Contac t Referred To Contact XR IMAGING Diagnoses Abdominal pain, unspecified abdominal location Chronic constipation Procedures XR ABDOMEN 1V SUPINE RADIOLOGIC EXAM ABDOMEN 1 VIEW Arnel Hatifeld MD [address] [place] [address] [place] [address] Referral ID Status Reason Start Date Expiration Date V isits Requested Visits Authorized [id number] Closed Auto-Generate d Referral 08/13/2022 09/12/2023 1 1 [facility] for referral (narrative)* Diagnostic Procedure Only (Routine) - Closed Specialty Diagnoses / Procedures Referred By Contac t Referred To Contact XR IMAGING Diagnoses Acute constipation Left lower quadrant abdominal pain Procedures XR ABDOMEN 1V SUPINE RADIOLOGIC EXAM ABDOMEN 1 VIEW Kelsie Doshi PA-C [address] [place] [address] [place] [address] Referral ID Status Reason Start Date Expiration Date V isits Requested Visits Authorized [id number] Closed Auto-Generate d Referral 05/23/2022 06/22/2023 1 1 [facility] for referral (narrative)* Outpatient Procedure (Routine) - New Request Specialty Diagnoses / Procedures Referred By Contac t Referred To Contact [facility] [place] Diagnoses 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) Chronic heart failure with preserved ejection fraction (HFpEF) (HCC) Chronic diastolic (congestive) heart failure (HCC) Chronic diastolic heart failure (HCC) Nonrheumatic tricuspid valve regurgitation Presence of combination internal cardiac defibrillator (ICD) and pacemaker Hypertension, essential Arrhythmogenic right ventricular dysplasia (HCC) Procedures ECHO ECHO TTHRC R-T 2D W/WOM-MODE COMPL SPEC&COLR D Dave Alcala MD [address] [place] [address] [facility] [place] [address] [address] [address] [place] [id number] Referral ID Status Reason Start Date Expiration Date Visits Requested Visits Authorized [id number] New Request Auto-Generat ed Referral 05/12/2024 05/12/2025 1 1 * Outpatient Procedure (Routine) - New Request Specialty Diagnoses / Procedures Referred By Contmindi t Referred To Contact [facility] [place] Diagnoses 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) Chronic heart failure with preserved ejection fraction (HFpEF) (HCC) Chronic diastolic (congestive) heart failure (HCC) Chronic diastolic heart failure (HCC) Nonrheumatic tricuspid valve regurgitation Presence of combination internal cardiac defibrillator (ICD) and pacemaker Hypertension, essential Arrhythmogenic right ventricular dysplasia (HCC) Procedures ECG COMPLETE ECG ROUTINE ECG W/LEAST 12 LDS W/I&R Dave Alcala MD [address] [place] [address] [address] Referral ID Status Reason Start Date Expiration Date Visits Requested Visits Authorized [id number] New Request Auto-Generat ed Referral 05/12/2024 05/12/2025 1 1 * Transition of Care (Routine) - Ref Not Required Specialty Diagnoses / Procedures Referred By Coni son Referred To Contact [facility] [place] Diagnoses 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) Chronic heart failure with preserved ejection fraction (HFpEF) (HCC) Chronic diastolic (congestive) heart failure (HCC) Chronic diastolic heart failure (HCC) Nonrheumatic tricuspid valve regurgitation Presence of combination internal cardiac defibrillator (ICD) and pacemaker Hypertension, essential Arrhythmogenic right ventricular dysplasia (HCC) Procedures CARDIOVASCULAR MEDICINE [place] [address] [place] [address] [address] [address] [address] Referral ID Status Reason Start Date Expiration Date Visits Requested Visits Authorized [id number] Ref Not Required PCP Requested Referral 02/11/2025 05/12/2025 1 1 [facility] for referral (narrative)* Diagnostic Procedure Only (Routine) - New Request Specialty Diagnoses / Procedures Referred By Coni son Referred To Contact BR IMAGING Diagnoses Encounter for screening mammogram for malignant neoplasm of breast Procedures NABILA SCREENING W DESI SCREENING DIGITAL BREAST TOMOSYNTHESIS BI SCREENING MAMMOGRAPHY BI 2-VIEW BREAST INC CAD Reese Pagan MD [address] [place] [address] Br Imaging [address] [place] [phone] Referral ID Status Reason Start Date Expiration Date Visits Requested Visits Authorized [id number] New Request Auto-Generat ed Referral 06/27/2025 1 1 [facility] for referral (narrative)* Outpatient Procedure (Routine) - New Request Specialty Diagnoses / Procedures Referred By Coni son Referred To Contact [facility] [place] Diagnoses ICD (implantable cardioverter-defibrilla tor) in place Procedures CARDIAC IMPLANTABLE DEVICE CHECK PR[facility] DEV EVAL IMPLANTABLE SUBQ LEAD DFB SYSTEM INTERROGATION EVAL F2F IMPLANT SUBQ LEAD DEFIB PRGRMNG DEV EVAL IMPLANTABLE IN PERSN 1 LD DFB PRGRMG EVAL IMPLANTABLE IN PRSN DUAL LEAD DFB PRGRMG EVAL IMPLANTABLE IN PERSON MULTI LEAD DFB PAT-PX DEV EVAL & PROG SING/DUAL/MULTI LEAD DFB INTERROG EVAL F2F 1/DUAL/PATIENT REGISTRATION SPECIALIST LEADS IMPLTBL DFB INTERROGATION EVAL IN PERSON WR DEFIBRILLATOR INTERROG DEV EVAL ICPMS PHYS/QHP IN PERSON INTERROG EVAL F2F 1/DUAL/PATIENT REGISTRATION SPECIALIST LEADS IMPLTBL DFB PRGRMNG DEV EVAL IMPLANTABLE IN PERSN 1 LD DFB PRGRMG EVAL IMPLANTABLE IN PRSN DUAL LEAD DFB PRGRMG EVAL IMPLANTABLE IN PERSON MULTI LEAD DFB Clarissa Tucker DO [address] [place] [address] [facility] [address] [address] Referral ID Status Reason Start Date Expiration Date Visits Requested Visits Authorized [id number] New Request Auto-Generat ed Referral 08/11/2024 08/11/2025 1 1 * Outpatient Procedure (Routine) - New Request Specialty Diagnoses / Procedures Referred By Coni son Referred To Contact [facility] Diagnoses ICD (implantable cardioverter-defibrilla tor) in place Procedures ECG COMPLETE ECG ROUTINE ECG W/LEAST 12 LDS W/I&R Clarissa Tucker DO [address] [place] [address] [facility] [address] [place] [id number] Referral ID Status Reason Start Date Expiration Date Visits Requested Visits Authorized [id number] New Request Auto-Generat ed Referral 08/11/2024 08/11/2025 1 1 * Transition of Care (Routine) - Authorized Specialty Diagnoses / Procedures Referred By Contac t Referred To Contact [facility] Procedures CARDIOVASCULAR MEDICINE OP FOLLOW UP APPT ORDER Clarissa Tucker DO [address] [place] [address] [address] Referral ID Status Reason Start Date Expiration Date Visits Requested Visits Authorized [id number] Authorized PCP Requested Referral 08/11/2025 1 1 [facility] for referral (narrative)* Outpatient Procedure (Routine) - Closed Specialty Diagnoses / Procedures Referred By Contac t Referred To Contact [facility] Diagnoses Pacemaker reprogramming/check Procedures CARDIAC IMPLANTABLE DEVICE CHECK Card Ep Device [facility] Main [address] [place] [id number] [address] Referral ID Status Reason Start Date Expiration Date V isits Requested Visits Authorized [id number] Closed Auto-Generate d Referral 02/11/2024 2025 1 1 * Outpatient Procedure (Routine) - Closed Specialty Diagnoses / Procedures Referred By Contac t Referred To Contact [facility] Diagnoses Pacemaker reprogramming/check Procedures CARDIAC IMPLANTABLE DEVICE CHECK Card Ep Device Clinic Main [address] [place] [address] [address] Referral ID Status Reason Start Date Expiration Date V isits Requested Visits Authorized [id number] Closed Auto-Generate d Referral 02/11/2024 2025 1 1 [facility] for visit Narrative* Diagnostic Procedure Only (Routine) - Closed Specialty Diagnoses / Procedures Referred By Contac t Referred To Contact [facility] Diagnoses Encounter for gynecological examination (general) (routine) without abnormal findings Encounter for screening mammogram for breast cancer Procedures NABILA SCREENING W DESI SCREENING DIGITAL BREAST TOMOSYNTHESIS BI SCREENING MAMMOGRAPHY BI 2-VIEW BREAST INC CAD Reese Pagan MD [address] [place] [phone] [facility] [address] [place] [address] Referral ID Status Reason Start Date Expiration Date V isits Requested Visits Authorized [id number] Closed Auto-Generate d Referral OON/Self Pay Override 10/07/2022 11/06/2023 1 1 [facility] for visit Narrative* Diagnostic Procedure Only (Urgent) - Closed Specialty Diagnoses / Procedures Referred By Sophieac t Referred To Contact [facility] Diagnoses Injury of nose, initial encounter Procedures XR NASAL BONES 3V PA/BOTH LAT RADEX NASAL BONES COMPLETE MINIMUM 3 VIEWS Chanel Gardner APRN.STEWARD/STEWARDESS ECONOMY CLASS [address] [place] [address] Xr Imaging [facility]95 Referral ID Status Reason Start Date Expiration Date V isits Requested Visits Authorized [id number] Closed Auto-Generate d Referral 12/08/2023 01/06/2025 1 1 [facility] for visit Narrative* Diagnostic Procedure Only (Routine) - Closed Specialty Diagnoses / Procedures Referred By Contac t Referred To Contact [facility] Diagnoses Abdominal pain, unspecified abdominal location Chronic constipation Procedures XR ABDOMEN 1V SUPINE RADIOLOGIC EXAM ABDOMEN 1 VIEW Arnel Hatfield MD [address] [facility] [place] [phone] Xr Imaging [facility]95 Referral ID Status Reason Start Date Expiration Date V isits Requested Visits Authorized [id number] Closed Auto-Generate d Referral 08/13/2022 09/12/2023 1 1 [facility] for visit Narrative* Diagnostic Procedure Only (Routine) - Closed Specialty Diagnoses / Procedures Referred By Contac t Referred To Contact [facility] IM[facility] Diagnoses Acute constipation Left lower quadrant abdominal pain Procedures XR ABDOMEN 1V SUPINE RADIOLOGIC EXAM ABDOMEN 1 VIEW Kelsie Doshi PA-C [address] [place] [address] [place] [address] Referral ID Status Reason Start Date Expiration Date V isits Requested Visits Authorized [id number] Closed Auto-Generate d Referral 05/23/2022 06/22/2023 1 1 [facility] for visit Narrative* Diagnostic Procedure Only (Urgent) - Pending Review Specialty Diagnoses / Procedures Referred By Contac t Referred To Contact [facility] Diagnoses Left knee injury, initial encounter Procedures XR KNEE GENERAL 4V AP BOTH/PA BOTH/LAT/MERC LEFT RADIOLOGIC EXAM KNEE COMPLETE 4/MORE VIEWS Saida Frank, JULIANNE.STEWARD/STEWARDESS ECONOMY CLASS [address] [place] [address] Phone: tel: fax: [place] [address] Referral ID Status Reason Start Date Expiration Date Visits Requested Visits Authorized [id number] Pending Review Auto-Generate d Referral Clearance Not Met -Financial Clearance Bypassed 11/04/2024 12/04/2025 1 1 [facility] for visit Narrative* Diagnostic Procedure Only (Routine) - Closed Specialty Diagnoses / Procedures Referred By Contac t Referred To Contact X[facility] IMAG[facility] Diagnoses Closed avulsion fracture of distal fibula with routine healing, right Procedures XR ANKLE GENERAL 3V AP/LAT/OBL RIGHT RADEX ANKLE COMPLETE MINIMUM 3 VIEWS Santiago Campos V, DO [address] [place] [address] Phone: tel: fax: [place] [address] Referral ID Status Reason Start Date Expiration Date V isits Requested Visits Authorized [id number] Closed Auto-Generate d Referral 12/03/2024 08/03/2025 1 1 [facility] for visit Narrative* Diagnostic Procedure Only (Routine) - Closed Specialty Diagnoses / Procedures Referred By Contac t Referred To Contact [facility] Diagnoses Osteopenia, unspecified location Procedures DXA-AXIAL SKELETON DXA BONE DENSITY STUDY 1/> SITES AXIAL Alton Jiménez MD [address] [place] [address] Phone: tel: fax: [place] [address] Referral ID Status Reason Start Date Expiration Date V isits Requested Visits Authorized [id number] Closed Auto-Generate d Referral 12/20/2024 08/03/2025 1 1 [facility] Procedure Only (Routine) - Closed Specialty Diagnoses / Procedures Referred By Contac t Referred To Contact [facility] Diagnoses Neck pain Procedures XR CERV OTHER 4V AP/LAT/OBL RADEX SPINE CERVICAL 4 OR 5 VIEWS Alton Eisenberg MD [address] [place] [address] Phone: tel: fax: [place] [address] Referral ID Status Reason Start Date Expiration Date V isits Requested Visits Authorized [id number] Closed Auto-Generate d Referral 04/07/2025 05/07/2026 1 1 [facility] Summary Purpose Family History No Family History Records FoundNo Family History Records FoundNo Family History Records FoundNo Family History Records FoundNo Family History Records Found Advance Directives No Advanced Directives Records FoundDocuments on File Type Date Recorded Patient Weight Recorder Expl anation Advance Directive(s) 05/21/2019 3:12 PM Advance Directive(s) 05/04/2018 9:35 AM Advance Directive(s) 03/19/2017 3:15 PM Documents on File Type Date Recorded Patient Weight Recorder Expl anation Advance Directive(s) 05/21/2019 3:12 PM Advance Directive(s) 05/04/2018 9:35 AM Advance Directive(s) 03/19/2017 3:15 PM Documents on File Type Date Recorded Patient Weight Recorder Expl anation Advance Directive(s) 03/19/2017 3:15 PM Documents on File Type Date Recorded Patient Weight Recorder Expl anation Advance Directive(s) 03/19/2017 3:15 PM Health Concerns Infection Onset Date Last Indicated Resolved Time COVID-19 Rule-Out 01/01/2022 01/01/2022 Infection Onset Date Last Indicated Resolved Time COVID-19 Confirmed 01/11/2022 01/11/2022 Infection Onset Date Last Indicated Resolved Time COVID-19 Confirmed 01/11/2022 01/11/2022 Reason for Referral Specialty Diagnoses / Procedures Referred By Contac t Referred To Contact CT IMAGING Diagnoses Left lower quadrant abdominal pain Procedures CT ABD/PEL WO IVCON CT ABD & PELVIS W/O CONTRAST Kelsie Doshi PA-C [address] [place] [address] Ct Imaging Referral ID Status Reason Start Date Expiration Date V isits Requested Visits Authorized [id number] Closed Auto-Generate d Referral 05/29/2022 08/03/2022 2 2 Specialty Diagnoses / Procedures Referred By Contac t Referred To Contact Ent - Otolaryngology Diagnoses Perforated tympanic membrane, left Procedures CONSULT TO ENT OFFICE/OUTPATIENT [facility] 60-74 MINUTES Chanel Gardner APRN.STEWARD/STEWARDESS ECONOMY CLASS [address] [place] [address] Referral ID Status Reason Start Date Expiration Date Visits Requested Visits Authorized [id number] Pending Review PCP Requested Referral 11/08/2022 11/08/2023 1 1 Specialty Diagnoses / Procedures Referred By Contac t Referred To Contact Podiatry Diagnoses Foot pain, bilateral Procedures CONSULT TO PODIATRY OFFICE/OUTPATIENT [facility] 60-74 MINUTES Alton Eisenberg MD [address] [place] [phone] Referral ID Status Reason Start Date Expiration Date Visits Requested Visits Authorized [id number] Pending Review PCP Requested Referral 03/10/2023 03/09/2024 1 1 Specialty Diagnoses / Procedures Referred By Contac t Referred To Contact Diagnoses Encounter for gynecological examination Procedures CONSULT TO COLLEGE SCOUTING COORDINATOR OFFICE/OUTPATIENT [facility] 60-[place] [address] [place] [address] Referral ID Status Reason Start Date Expiration Date Visits Requested Visits Authorized [id number] Pending Review PCP Requested Referral Auto-Generate d Referral 05/01/2023 04/30/2024 1 1 Specialty Diagnoses / Procedures Referred By Contac t Referred To Contact Procedures HEARING TEST/AUDIOGRAM COMPRE AUDIOMETRY THRESHOLD EVAL Allegra Hernandez, AUD [address] [place] [address] [facility] [address] [place] [address] Referral ID Status Reason Start Date Expiration Date Visits Requested Visits Authorized [id number] Pending Review Auto-Generat ed Referral 10/23/2023 10/23/2024 1 1 Specialty Diagnoses / Procedures Referred By Contact Referred To Contact Ent - Otolaryngology / ENT-OTOLARYNGOLOGY Diagnoses Closed fracture of nasal bone, initial encounter Procedures CONSULT TO ENT OFFICE/OUTPATIENT NEW HIGH MDM 60 MINUTES OFFICE/OUTPATIENT NEW MODERATE MDM 45 MINUTES OFFICE/OUTPATIENT NEW LOW MDM 30 MINUTES OFFICE/OUTPATIENT NEW SF MDM 15 MINUTES Chanel Gardner, JULIANNE.STEWARD/STEWARDESS ECONOMY CLASS [address] [place] [address] [facility] [address] [address] Referral ID Status Reason Start Date Expiration Date V isits Requested Visits Authorized [id number] Closed PCP Requested Referral OON/Self Pay Override 08/04/2023 08/03/2024 1 1 Additional Source Comments INFORMATION SOURCE (unrecogn ized section and content) DATE CREATED AUTHOR 01/28/2018 [facility] DATE CREATED AUTHOR AUTHOR'S ORGANIZ ATION 05/22/2019 [facility] DATE CREATED AUTHOR AUTHOR'S ORGANIZ ATION 03/15/2020 [facility] DATE CREATED AUTHOR AUTHOR'S ORGANIZ ATION 12/22/2023 [facility] DATE CREATED AUTHOR AUTHOR'S ORGANIZ ATION 04/09/2025 [facility] Source Comments (unrecognize d section and content) In the event this informatio n is protected by the Federal Confidentiality of Alcohol and Drug Abuse Patient Records regulations: The Federal rules restrict any use of the information to criminally investigate or prosecute any alcohol or drug abuse patient.[facility] Health[facility] the event this information is protected by the Federal Confidentiality of Alcohol and Drug Abuse Patient Records regulations: The Federal rules restrict any use of the information to criminally investigate or prosecute any alcohol or drug abuse patient.[facility] HealthIn the event this information is protected by the Federal Confidentiality of Alcohol and Drug Abuse Patient Records regulations: The Federal rules restrict any use of the information to criminally investigate or prosecute any alcohol or drug abuse patient.[facility] HealthIn the event this information is protected by the Federal Confidentiality of Alcohol and Drug Abuse Patient Records regulations: The Federal rules restrict any use of the information to criminally investigate or prosecute any alcohol or drug abuse patient.[facility] HealthIn the event this information is protected by the Federal Confidentiality of Alcohol and Drug Abuse Patient Records regulations: The Federal rules restrict any use of the information to criminally investigate or prosecute any alcohol or drug abuse patient.[facility] HealthIn the event this information is protected by the Federal Confidentiality of Alcohol and Drug Abuse Patient Records regulations: The Federal rules restrict any use of the information to criminally investigate or prosecute any alcohol or drug abuse patient.[facility] HealthIn the event this information is protected by the Federal Confidentiality of Alcohol and Drug Abuse Patient Records regulations: The Federal rules restrict any use of the information to criminally investigate or prosecute any alcohol or drug abuse patient.[facility] HealthIn the event this information is protected by the Federal Confidentiality of Alcohol and Drug Abuse Patient Records regulations: The Federal rules restrict any use of the information to criminally investigate or prosecute any alcohol or drug abuse patient.[facility] HealthIn the event this information is protected by the Federal Confidentiality of Alcohol and Drug Abuse Patient Records regulations: The Federal rules restrict any use of the information to criminally investigate or prosecute any alcohol or drug abuse patient.[facility] HealthIn the event this information is protected by the Federal Confidentiality of Alcohol and Drug Abuse Patient Records regulations: The Federal rules restrict any use of the information to criminally investigate or prosecute any alcohol or drug abuse patient.[facility] HealthIn the event this information is protected by the Federal Confidentiality of Alcohol and Drug Abuse Patient Records regulations: The Federal rules restrict any use of the information to criminally investigate or prosecute any alcohol or drug abuse patient.[facility] HealthIn the event this information is protected by the Federal Confidentiality of Alcohol and Drug Abuse Patient Records regulations: The Federal rules restrict any use of the information to criminally investigate or prosecute any alcohol or drug abuse patient.[facility] HealthIn the event this information is protected by the Federal Confidentiality of Alcohol and Drug Abuse Patient Records regulations: The Federal rules restrict any use of the information to criminally investigate or prosecute any alcohol or drug abuse patient.[facility] HealthIn the event this information is protected by the Federal Confidentiality of Alcohol and Drug Abuse Patient Records regulations: The Federal rules restrict any use of the information to criminally investigate or prosecute any alcohol or drug abuse patient.[facility] HealthIn the event this information is protected by the Federal Confidentiality of Alcohol and Drug Abuse Patient Records regulations: The Federal rules restrict any use of the information to criminally investigate or prosecute any alcohol or drug abuse patient.[facility] HealthIn the event this information is protected by the Federal Confidentiality of Alcohol and Drug Abuse Patient Records regulations: The Federal rules restrict any use of the information to criminally investigate or prosecute any alcohol or drug abuse patient.[facility] HealthIn the event this information is protected by the Federal Confidentiality of Alcohol and Drug Abuse Patient Records regulations: The Federal rules restrict any use of the information to criminally investigate or prosecute any alcohol or drug abuse patient.[facility] HealthIn the event this information is protected by the Federal Confidentiality of Alcohol and Drug Abuse Patient Records regulations: The Federal rules restrict any use of the information to criminally investigate or prosecute any alcohol or drug abuse patient.[facility] HealthIn the event this information is protected by the Federal Confidentiality of Alcohol and Drug Abuse Patient Records regulations: The Federal rules restrict any use of the information to criminally investigate or prosecute any alcohol or drug abuse patient.[facility] HealthIn the event this information is protected by the Federal Confidentiality of Alcohol and Drug Abuse Patient Records regulations: The Federal rules restrict any use of the information to criminally investigate or prosecute any alcohol or drug abuse patient.[facility] HealthIn the event this information is protected by the Federal Confidentiality of Alcohol and Drug Abuse Patient Records regulations: The Federal rules restrict any use of the information to criminally investigate or prosecute any alcohol or drug abuse patient.[facility] HealthIn the event this information is protected by the Federal Confidentiality of Alcohol and Drug Abuse Patient Records regulations: The Federal rules restrict any use of the information to criminally investigate or prosecute any alcohol or drug abuse patient.[facility] HealthIn the event this information is protected by the Federal Confidentiality of Alcohol and Drug Abuse Patient Records regulations: The Federal rules restrict any use of the information to criminally investigate or prosecute any alcohol or drug abuse patient.[facility] HealthIn the event this information is protected by the Federal Confidentiality of Alcohol and Drug Abuse Patient Records regulations: The Federal rules restrict any use of the information to criminally investigate or prosecute any alcohol or drug abuse patient.[facility] HealthIn the event this information is protected by the Federal Confidentiality of Alcohol and Drug Abuse Patient Records regulations: The Federal rules restrict any use of the information to criminally investigate or prosecute any alcohol or drug abuse patient.[facility] HealthIn the event this information is protected by the Federal Confidentiality of Alcohol and Drug Abuse Patient Records regulations: The Federal rules restrict any use of the information to criminally investigate or prosecute any alcohol or drug abuse patient.[facility] HealthIn the event this information is protected by the Federal Confidentiality of Alcohol and Drug Abuse Patient Records regulations: The Federal rules restrict any use of the information to criminally investigate or prosecute any alcohol or drug abuse patient.[facility] HealthIn the event this information is protected by the Federal Confidentiality of Alcohol and Drug Abuse Patient Records regulations: The Federal rules restrict any use of the information to criminally investigate or prosecute any alcohol or drug abuse patient.[facility] HealthIn the event this information is protected by the Federal Confidentiality of Alcohol and Drug Abuse Patient Records regulations: The Federal rules restrict any use of the information to criminally investigate or prosecute any alcohol or drug abuse patient.[facility] HealthIn the event this information is protected by the Federal Confidentiality of Alcohol and Drug Abuse Patient Records regulations: The Federal rules restrict any use of the information to criminally investigate or prosecute any alcohol or drug abuse patient.[facility] HealthIn the event this information is protected by the Federal Confidentiality of Alcohol and Drug Abuse Patient Records regulations: The Federal rules restrict any use of the information to criminally investigate or prosecute any alcohol or drug abuse patient.[facility] HealthIn the event this information is protected by the Federal Confidentiality of Alcohol and Drug Abuse Patient Records regulations: The Federal rules restrict any use of the information to criminally investigate or prosecute any alcohol or drug abuse patient.[facility] HealthIn the event this information is protected by the Federal Confidentiality of Alcohol and Drug Abuse Patient Records regulations: The Federal rules restrict any use of the information to criminally investigate or prosecute any alcohol or drug abuse patient.[facility] HealthIn the event this information is protected by the Federal Confidentiality of Alcohol and Drug Abuse Patient Records regulations: The Federal rules restrict any use of the information to criminally investigate or prosecute any alcohol or drug abuse patient.[facility] HealthIn the event this information is protected by the Federal Confidentiality of Alcohol and Drug Abuse Patient Records regulations: The Federal rules restrict any use of the information to criminally investigate or prosecute any alcohol or drug abuse patient.[facility] HealthIn the event this information is protected by the Federal Confidentiality of Alcohol and Drug Abuse Patient Records regulations: The Federal rules restrict any use of the information to criminally investigate or prosecute any alcohol or drug abuse patient.[facility] HealthIn the event this information is protected by the Federal Confidentiality of Alcohol and Drug Abuse Patient Records regulations: The Federal rules restrict any use of the information to criminally investigate or prosecute any alcohol or drug abuse patient.[facility] HealthIn the event this information is protected by the Federal Confidentiality of Alcohol and Drug Abuse Patient Records regulations: The Federal rules restrict any use of the information to criminally investigate or prosecute any alcohol or drug abuse patient.[facility] HealthIn the event this information is protected by the Federal Confidentiality of Alcohol and Drug Abuse Patient Records regulations: The Federal rules restrict any use of the information to criminally investigate or prosecute any alcohol or drug abuse patient.[facility] HealthIn the event this information is protected by the Federal Confidentiality of Alcohol and Drug Abuse Patient Records regulations: The Federal rules restrict any use of the information to criminally investigate or prosecute any alcohol or drug abuse patient.[facility] HealthIn the event this information is protected by the Federal Confidentiality of Alcohol and Drug Abuse Patient Records regulations: The Federal rules restrict any use of the information to criminally investigate or prosecute any alcohol or drug abuse patient.[facility] HealthIn the event this information is protected by the Federal Confidentiality of Alcohol and Drug Abuse Patient Records regulations: The Federal rules restrict any use of the information to criminally investigate or prosecute any alcohol or drug abuse patient.[facility] HealthIn the event this information is protected by the Federal Confidentiality of Alcohol and Drug Abuse Patient Records regulations: The Federal rules restrict any use of the information to criminally investigate or prosecute any alcohol or drug abuse patient.[facility] HealthIn the event this information is protected by the Federal Confidentiality of Alcohol and Drug Abuse Patient Records regulations: The Federal rules restrict any use of the information to criminally investigate or prosecute any alcohol or drug abuse patient.[facility] HealthIn the event this information is protected by the Federal Confidentiality of Alcohol and Drug Abuse Patient Records regulations: The Federal rules restrict any use of the information to criminally investigate or prosecute any alcohol or drug abuse patient.[facility]In the event this information is protected by the Federal Confidentiality of Alcohol and Drug Abuse Patient Records regulations: The Federal rules restrict any use of the information to criminally investigate or prosecute any alcohol or drug abuse patient.[facility] HealthIn the event this information is protected by the Federal Confidentiality of Alcohol and Drug Abuse Patient Records regulations: The Federal rules restrict any use of the information to criminally investigate or prosecute any alcohol or drug abuse patient.[facility] HealthIn the event this information is protected by the Federal Confidentiality of Alcohol and Drug Abuse Patient Records regulations: The Federal rules restrict any use of the information to criminally investigate or prosecute any alcohol or drug abuse patient.[facility] HealthIn the event this information is protected by the Federal Confidentiality of Alcohol and Drug Abuse Patient Records regulations: The Federal rules restrict any use of the information to criminally investigate or prosecute any alcohol or drug abuse patient.[facility] HealthIn the event this information is protected by the Federal Confidentiality of Alcohol and Drug Abuse Patient Records regulations: The Federal rules restrict any use of the information to criminally investigate or prosecute any alcohol or drug abuse patient.[facility] HealthIn the event this information is protected by the Federal Confidentiality of Alcohol and Drug Abuse Patient Records regulations: The Federal rules restrict any use of the information to criminally investigate or prosecute any alcohol or drug abuse patient.[facility]In the event this information is protected by the Federal Confidentiality of Alcohol and Drug Abuse Patient Records regulations: The Federal rules restrict any use of the information to criminally investigate or prosecute any alcohol or drug abuse patient.[facility]In the event this information is protected by the Federal Confidentiality of Alcohol and Drug Abuse Patient Records regulations: The Federal rules restrict any use of the information to criminally investigate or prosecute any alcohol or drug abuse patient.[facility]In the event this information is protected by the Federal Confidentiality of Alcohol and Drug Abuse Patient Records regulations: The Federal rules restrict any use of the information to criminally investigate or prosecute any alcohol or drug abuse patient.[facility]In the event this information is protected by the Federal Confidentiality of Alcohol and Drug Abuse Patient Records regulations: The Federal rules restrict any use of the information to criminally investigate or prosecute any alcohol or drug abuse patient.[facility]In the event this information is protected by the Federal Confidentiality of Alcohol and Drug Abuse Patient Records regulations: The Federal rules restrict any use of the information to criminally investigate or prosecute any alcohol or drug abuse patient.[facility]In the event this information is protected by the Federal Confidentiality of Alcohol and Drug Abuse Patient Records regulations: The Federal rules restrict any use of the information to criminally investigate or prosecute any alcohol or drug abuse patient.[facility]In the event this information is protected by the Federal Confidentiality of Alcohol and Drug Abuse Patient Records regulations: The Federal rules restrict any use of the information to criminally investigate or prosecute any alcohol or drug abuse patient.[facility]In the event this information is protected by the Federal Confidentiality of Alcohol and Drug Abuse Patient Records regulations: The Federal rules restrict any use of the information to criminally investigate or prosecute any alcohol or drug abuse patient.[facility]In the event this information is protected by the Federal Confidentiality of Alcohol and Drug Abuse Patient Records regulations: The Federal rules restrict any use of the information to criminally investigate or prosecute any alcohol or drug abuse patient.[facility]In the event this information is protected by the Federal Confidentiality of Alcohol and Drug Abuse Patient Records regulations: The Federal rules restrict any use of the information to criminally investigate or prosecute any alcohol or drug abuse patient.[facility]In the event this information is protected by the Federal Confidentiality of Alcohol and Drug Abuse Patient Records regulations: The Federal rules restrict any use of the information to criminally investigate or prosecute any alcohol or drug abuse patient.[facility]In the event this information is protected by the Federal Confidentiality of Alcohol and Drug Abuse Patient Records regulations: The Federal rules restrict any use of the information to criminally investigate or prosecute any alcohol or drug abuse patient.[facility]In the event this information is protected by the Federal Confidentiality of Alcohol and Drug Abuse Patient Records regulations: The Federal rules restrict any use of the information to criminally investigate or prosecute any alcohol or drug abuse patient.[facility]In the event this information is protected by the Federal Confidentiality of Alcohol and Drug Abuse Patient Records regulations: The Federal rules restrict any use of the information to criminally investigate or prosecute any alcohol or drug abuse patient.[facility]In the event this information is protected by the Federal Confidentiality of Alcohol and Drug Abuse Patient Records regulations: The Federal rules restrict any use of the information to criminally investigate or prosecute any alcohol or drug abuse patient.[facility]In the event this information is protected by the Federal Confidentiality of Alcohol and Drug Abuse Patient Records regulations: The Federal rules restrict any use of the information to criminally investigate or prosecute any alcohol or drug abuse patient.[facility]In the event this information is protected by the Federal Confidentiality of Alcohol and Drug Abuse Patient Records regulations: The Federal rules restrict any use of the information to criminally investigate or prosecute any alcohol or drug abuse patient.[facility]In the event this information is protected by the Federal Confidentiality of Alcohol and Drug Abuse Patient Records regulations: The Federal rules restrict any use of the information to criminally investigate or prosecute any alcohol or drug abuse patient.[facility]In the event this information is protected by the Federal Confidentiality of Alcohol and Drug Abuse Patient Records regulations: The Federal rules restrict any use of the information to criminally investigate or prosecute any alcohol or drug abuse patient.[facility]In the event this information is protected by the Federal Confidentiality of Alcohol and Drug Abuse Patient Records regulations: The Federal rules restrict any use of the information to criminally investigate or prosecute any alcohol or drug abuse patient.[facility]In the event this information is protected by the Federal Confidentiality of Alcohol and Drug Abuse Patient Records regulations: The Federal rules restrict any use of the information to criminally investigate or prosecute any alcohol or drug abuse patient.[facility]In the event this information is protected by the Federal Confidentiality of Alcohol and Drug Abuse Patient Records regulations: The Federal rules restrict any use of the information to criminally investigate or prosecute any alcohol or drug abuse patient.[facility]In the event this information is protected by the Federal Confidentiality of Alcohol and Drug Abuse Patient Records regulations: The Federal rules restrict any use of the information to criminally investigate or prosecute any alcohol or drug abuse patient.[facility]In the event this information is protected by the Federal Confidentiality of Alcohol and Drug Abuse Patient Records regulations: The Federal rules restrict any use of the information to criminally investigate or prosecute any alcohol or drug abuse patient.[facility]In the event this information is protected by the Federal Confidentiality of Alcohol and Drug Abuse Patient Records regulations: The Federal rules restrict any use of the information to criminally investigate or prosecute any alcohol or drug abuse patient.[facility]In the event this information is protected by the Federal Confidentiality of Alcohol and Drug Abuse Patient Records regulations: The Federal rules restrict any use of the information to criminally investigate or prosecute any alcohol or drug abuse patient.[facility]In the event this information is protected by the Federal Confidentiality of Alcohol and Drug Abuse Patient Records regulations: The Federal rules restrict any use of the information to criminally investigate or prosecute any alcohol or drug abuse patient.[facility]In the event this information is protected by the Federal Confidentiality of Alcohol and Drug Abuse Patient Records regulations: The Federal rules restrict any use of the information to criminally investigate or prosecute any alcohol or drug abuse patient.[facility]In the event this information is protected by the Federal Confidentiality of Alcohol and Drug Abuse Patient Records regulations: The Federal rules restrict any use of the information to criminally investigate or prosecute any alcohol or drug abuse patient.[facility]In the event this information is protected by the Federal Confidentiality of Alcohol and Drug Abuse Patient Records regulations: The Federal rules restrict any use of the information to criminally investigate or prosecute any alcohol or drug abuse patient.[facility]In the event this information is protected by the Federal Confidentiality of Alcohol and Drug Abuse Patient Records regulations: The Federal rules restrict any use of the information to criminally investigate or prosecute any alcohol or drug abuse patient.[facility]In the event this information is protected by the Federal Confidentiality of Alcohol and Drug Abuse Patient Records regulations: The Federal rules restrict any use of the information to criminally investigate or prosecute any alcohol or drug abuse patient.[facility]In the event this information is protected by the Federal Confidentiality of Alcohol and Drug Abuse Patient Records regulations: The Federal rules restrict any use of the information to criminally investigate or prosecute any alcohol or drug abuse patient.[facility]In the event this information is protected by the Federal Confidentiality of Alcohol and Drug Abuse Patient Records regulations: The Federal rules restrict any use of the information to criminally investigate or prosecute any alcohol or drug abuse patient.[facility]In the event this information is protected by the Federal Confidentiality of Alcohol and Drug Abuse Patient Records regulations: The Federal rules restrict any use of the information to criminally investigate or prosecute any alcohol or drug abuse patient.[facility]In the event this information is protected by the Federal Confidentiality of Alcohol and Drug Abuse Patient Records regulations: The Federal rules restrict any use of the information to criminally investigate or prosecute any alcohol or drug abuse patient.[facility]In the event this information is protected by the Federal Confidentiality of Alcohol and Drug Abuse Patient Records regulations: The Federal rules restrict any use of the information to criminally investigate or prosecute any alcohol or drug abuse patient.[facility]In the event this information is protected by the Federal Confidentiality of Alcohol and Drug Abuse Patient Records regulations: The Federal rules restrict any use of the information to criminally investigate or prosecute any alcohol or drug abuse patient.[facility]In the event this information is protected by the Federal Confidentiality of Alcohol and Drug Abuse Patient Records regulations: The Federal rules restrict any use of the information to criminally investigate or prosecute any alcohol or drug abuse patient.[facility]In the event this information is protected by the Federal Confidentiality of Alcohol and Drug Abuse Patient Records regulations: The Federal rules restrict any use of the information to criminally investigate or prosecute any alcohol or drug abuse patient.[facility]In the event this information is protected by the Federal Confidentiality of Alcohol and Drug Abuse Patient Records regulations: The Federal rules restrict any use of the information to criminally investigate or prosecute any alcohol or drug abuse patient.[facility]In the event this information is protected by the Federal Confidentiality of Alcohol and Drug Abuse Patient Records regulations: The Federal rules restrict any use of the information to criminally investigate or prosecute any alcohol or drug abuse patient.[facility]In the event this information is protected by the Federal Confidentiality of Alcohol and Drug Abuse Patient Records regulations: The Federal rules restrict any use of the information to criminally investigate or prosecute any alcohol or drug abuse patient.[facility]In the event this information is protected by the Federal Confidentiality of Alcohol and Drug Abuse Patient Records regulations: The Federal rules restrict any use of the information to criminally investigate or prosecute any alcohol or drug abuse patient.[facility]In the event this information is protected by the Federal Confidentiality of Alcohol and Drug Abuse Patient Records regulations: The Federal rules restrict any use of the information to criminally investigate or prosecute any alcohol or drug abuse patient.[facility]In the event this information is protected by the Federal Confidentiality of Alcohol and Drug Abuse Patient Records regulations: The Federal rules restrict any use of the information to criminally investigate or prosecute any alcohol or drug abuse patient.[facility]In the event this information is protected by the Federal Confidentiality of Alcohol and Drug Abuse Patient Records regulations: The Federal rules restrict any use of the information to criminally investigate or prosecute any alcohol or drug abuse patient.[facility]In the event this information is protected by the Federal Confidentiality of Alcohol and Drug Abuse Patient Records regulations: The Federal rules restrict any use of the information to criminally investigate or prosecute any alcohol or drug abuse patient.[facility]In the event this information is protected by the Federal Confidentiality of Alcohol and Drug Abuse Patient Records regulations: The Federal rules restrict any use of the information to criminally investigate or prosecute any alcohol or drug abuse patient.[facility]In the event this information is protected by the Federal Confidentiality of Alcohol and Drug Abuse Patient Records regulations: The Federal rules restrict any use of the information to criminally investigate or prosecute any alcohol or drug abuse patient.[facility]In the event this information is protected by the Federal Confidentiality of Alcohol and Drug Abuse Patient Records regulations: The Federal rules restrict any use of the information to criminally investigate or prosecute any alcohol or drug abuse patient.[facility]In the event this information is protected by the Federal Confidentiality of Alcohol and Drug Abuse Patient Records regulations: The Federal rules restrict any use of the information to criminally investigate or prosecute any alcohol or drug abuse patient.[facility]In the event this information is protected by the Federal Confidentiality of Alcohol and Drug Abuse Patient Records regulations: The Federal rules restrict any use of the information to criminally investigate or prosecute any alcohol or drug abuse patient.[facility]In the event this information is protected by the Federal Confidentiality of Alcohol and Drug Abuse Patient Records regulations: The Federal rules restrict any use of the information to criminally investigate or prosecute any alcohol or drug abuse patient.[facility]In the event this information is protected by the Federal Confidentiality of Alcohol and Drug Abuse Patient Records regulations: The Federal rules restrict any use of the information to criminally investigate or prosecute any alcohol or drug abuse patient.[facility]In the event this information is protected by the Federal Confidentiality of Alcohol and Drug Abuse Patient Records regulations: The Federal rules restrict any use of the information to criminally investigate or prosecute any alcohol or drug abuse patient.[facility]In the event this information is protected by the Federal Confidentiality of Alcohol and Drug Abuse Patient Records regulations: The Federal rules restrict any use of the information to criminally investigate or prosecute any alcohol or drug abuse patient.[facility]In the event this information is protected by the Federal Confidentiality of Alcohol and Drug Abuse Patient Records regulations: The Federal rules restrict any use of the information to criminally investigate or prosecute any alcohol or drug abuse patient.[facility]In the event this information is protected by the Federal Confidentiality of Alcohol and Drug Abuse Patient Records regulations: The Federal rules restrict any use of the information to criminally investigate or prosecute any alcohol or drug abuse patient.[facility]In the event this information is protected by the Federal Confidentiality of Alcohol and Drug Abuse Patient Records regulations: The Federal rules restrict any use of the information to criminally investigate or prosecute any alcohol or drug abuse patient.[facility]In the event this information is protected by the Federal Confidentiality of Alcohol and Drug Abuse Patient Records regulations: The Federal rules restrict any use of the information to criminally investigate or prosecute any alcohol or drug abuse patient.[facility]In the event this information is protected by the Federal Confidentiality of Alcohol and Drug Abuse Patient Records regulations: The Federal rules restrict any use of the information to criminally investigate or prosecute any alcohol or drug abuse patient.[facility]In the event this information is protected by the Federal Confidentiality of Alcohol and Drug Abuse Patient Records regulations: The Federal rules restrict any use of the information to criminally investigate or prosecute any alcohol or drug abuse patient.[facility]In the event this information is protected by the Federal Confidentiality of Alcohol and Drug Abuse Patient Records regulations: The Federal rules restrict any use of the information to criminally investigate or prosecute any alcohol or drug abuse patient.[facility]In the event this information is protected by the Federal Confidentiality of Alcohol and Drug Abuse Patient Records regulations: The Federal rules restrict any use of the information to criminally investigate or prosecute any alcohol or drug abuse patient.[facility]In the event this information is protected by the Federal Confidentiality of Alcohol and Drug Abuse Patient Records regulations: The Federal rules restrict any use of the information to criminally investigate or prosecute any alcohol or drug abuse patient.[facility]In the event this information is protected by the Federal Confidentiality of Alcohol and Drug Abuse Patient Records regulations: The Federal rules restrict any use of the information to criminally investigate or prosecute any alcohol or drug abuse patient.[facility]In the event this information is protected by the Federal Confidentiality of Alcohol and Drug Abuse Patient Records regulations: The Federal rules restrict any use of the information to criminally investigate or prosecute any alcohol or drug abuse patient.[facility]In the event this information is protected by the Federal Confidentiality of Alcohol and Drug Abuse Patient Records regulations: The Federal rules restrict any use of the information to criminally investigate or prosecute any alcohol or drug abuse patient.[facility]In the event this information is protected by the Federal Confidentiality of Alcohol and Drug Abuse Patient Records regulations: The Federal rules restrict any use of the information to criminally investigate or prosecute any alcohol or drug abuse patient.[facility]In the event this information is protected by the Federal Confidentiality of Alcohol and Drug Abuse Patient Records regulations: The Federal rules restrict any use of the information to criminally investigate or prosecute any alcohol or drug abuse patient.[facility]In the event this information is protected by the Federal Confidentiality of Alcohol and Drug Abuse Patient Records regulations: The Federal rules restrict any use of the information to criminally investigate or prosecute any alcohol or drug abuse patient.[facility]In the event this information is protected by the Federal Confidentiality of Alcohol and Drug Abuse Patient Records regulations: The Federal rules restrict any use of the information to criminally investigate or prosecute any alcohol or drug abuse patient.[facility]In the event this information is protected by the Federal Confidentiality of Alcohol and Drug Abuse Patient Records regulations: The Federal rules restrict any use of the information to criminally investigate or prosecute any alcohol or drug abuse patient.[facility]In the event this information is protected by the Federal Confidentiality of Alcohol and Drug Abuse Patient Records regulations: The Federal rules restrict any use of the information to criminally investigate or prosecute any alcohol or drug abuse patient.[facility]In the event this information is protected by the Federal Confidentiality of Alcohol and Drug Abuse Patient Records regulations: The Federal rules restrict any use of the information to criminally investigate or prosecute any alcohol or drug abuse patient.[facility]In the event this information is protected by the Federal Confidentiality of Alcohol and Drug Abuse Patient Records regulations: The Federal rules restrict any use of the information to criminally investigate or prosecute any alcohol or drug abuse patient.[facility]In the event this information is protected by the Federal Confidentiality of Alcohol and Drug Abuse Patient Records regulations: The Federal rules restrict any use of the information to criminally investigate or prosecute any alcohol or drug abuse patient.[facility]In the event this information is protected by the Federal Confidentiality of Alcohol and Drug Abuse Patient Records regulations: The Federal rules restrict any use of the information to criminally investigate or prosecute any alcohol or drug abuse patient.[facility]In the event this information is protected by the Federal Confidentiality of Alcohol and Drug Abuse Patient Records regulations: The Federal rules restrict any use of the information to criminally investigate or prosecute any alcohol or drug abuse patient.[facility]In the event this information is protected by the Federal Confidentiality of Alcohol and Drug Abuse Patient Records regulations: The Federal rules restrict any use of the information to criminally investigate or prosecute any alcohol or drug abuse patient.[facility]In the event this information is protected by the Federal Confidentiality of Alcohol and Drug Abuse Patient Records regulations: The Federal rules restrict any use of the information to criminally investigate or prosecute any alcohol or drug abuse patient.[facility]In the event this information is protected by the Federal Confidentiality of Alcohol and Drug Abuse Patient Records regulations: The Federal rules restrict any use of the information to criminally investigate or prosecute any alcohol or drug abuse patient.[facility] Teams (unrecognized sec tion and content) Agricultural Sciences Professor Relationship Specialty Start Date End Date Alton Eisenberg MD [address] [place], [place] [address] PCP - General Family Practice 05/16/15 No, Referral Referring 03/25/19 Ronal Gomez MD [address] [place] [address] Primary Staff Physician Cardiology 10/20/18 Agricultural Sciences Professor Relationship Specialty Start Date End Date Alton Eisenberg MD [address] [place], [place] [id number] PCP - General Family Practice 05/16/15 No, Referral Referring 03/25/19 Ronal Gomez MD [address] [place] [address] Primary Staff Physician Cardiology 10/20/18 Clarissa Tucker, DO [address] [place] [address] Primary Staff Physician Cardiology 11/01/21 Agricultural Sciences Professor Relationship Specialty Start Date End Date Alton Eisenberg MD [address] [place] [address] PCP - General Family Practice 05/16/15 No, Referral Referring 03/25/19 Ronal Gomez MD [address] [place] [address] Primary Staff Physician Cardiology 10/20/18 Clarissa Tucker, DO [address] [place] [address] Primary Staff Physician Cardiology 11/01/21 Agricultural Sciences Professor Relationship Specialty Start Date End Date Alton Eisenberg MD [address] [place] [address] PCP - General Family Practice 05/16/15 No, Referral Referring 03/25/19 Ronal Gomez MD [address] [place] [address] Primary Staff Physician Cardiology 10/20/18 Clarissa Tucker, DO [address] [place] [address] Primary Staff Physician Cardiology 11/01/21 Agricultural Sciences Professor Relationship Specialty Start Date End Date Alton Eisenberg MD [address] [place] [address] PCP - General Family Practice 05/16/15 No, Referral Referring 03/25/19 Ronal Gomez MD [address] [place] [address] Primary Staff Physician Cardiology 10/20/18 Clarissa Tucker, DO [address] [place] [address] Primary Staff Physician Cardiology 11/01/21 Agricultural Sciences Professor Relationship Specialty Start Date End Date Alton Eisenberg MD [address] [place] [address] PCP - General Family Practice 05/16/15 No, Referral Referring 03/25/19 Ronal Gomez MD [address] [place] [address] Primary Staff Physician Cardiology 10/20/18 Clarissa Tucker, DO [address] [place] [address] Primary Staff Physician Cardiology 11/01/21 Agricultural Sciences Professor Relationship Specialty Start Date End Date Alton Eisenberg MD [address] [place] [address] PCP - General Family Practice 05/16/15 No, Referral Referring 03/25/19 Ronal Gomez MD [address] [place] [address] Primary Staff Physician Cardiology 10/20/18 Clarissa Tucker, DO [address] [place] [address] Primary Staff Physician Cardiology 11/01/21 Agricultural Sciences Professor Relationship Specialty Start Date End Date Alton Eisenberg MD [address] [place] [address] PCP - General Family Practice 05/16/15 No, Referral Referring 03/25/19 Ronal Gomez MD [address] [place] [address] Primary Staff Physician Cardiology 10/20/18 Clarissa Tucker, DO [address] [facility] [place] [address] Primary Staff Physician Cardiology 11/01/21 Agricultural Sciences Professor Relationship Specialty Start Date End Date Alton Eisenberg MD [address] [place] [address] PCP - General Family Practice 05/16/15 No, Referral Referring 03/25/19 Ronal Gomez MD [address] [place] [address] Primary Staff Physician Cardiology 10/20/18 Clarissa Tucker, DO [address] [place] [address] Primary Staff Physician Cardiology 11/01/21 Agricultural Sciences Professor Relationship Specialty Start Date End Date Alton Eisenberg MD [address] [place] [address] PCP - General Family Practice 05/16/15 No, Referral Referring 03/25/19 Ronal Gomez MD [address] [place] [address] Primary Staff Physician Cardiology 10/20/18 Clarissa Tucker, DO [address] [place] [address] Primary Staff Physician Cardiology 11/01/21 Agricultural Sciences Professor Relationship Specialty Start Date End Date Alton Eisenberg MD [address] [place] [address] PCP - General Family Practice 05/16/15 No, Referral Referring 03/25/19 Ronal Gomez MD [address] [place] [address] Primary Staff Physician Cardiology 10/20/18 Clarissa Tucker, DO [address] [place] [address] Primary Staff Physician Cardiology 11/01/21 Agricultural Sciences Professor Relationship Specialty Start Date End Date Alton Eisenberg MD [address] [place] [address] PCP - General Family Practice 05/16/15 No, Referral Referring 03/25/19 Ronal Gomez MD [address] [place] [address] Primary Staff Physician Cardiology 10/20/18 Clarissa Tucker, DO [address] [place] [address] Primary Staff Physician Cardiology 11/01/21 Agricultural Sciences Professor Relationship Specialty Start Date End Date Alton Eisenberg MD [address] [place] [address] PCP - General Family Medicine 05/16/15 No, Referral Referring 03/25/19 Ronal Gomez MD [address] [place] [address] Primary Staff Physician Cardiology 10/20/18 Clarissa Tucker, DO [address] [place] [address] Primary Staff Physician Cardiology 11/01/21 Agricultural Sciences Professor Relationship Specialty Start Date End Date Alton Eisenberg MD [address] [place] [address] PCP - General Family Medicine 05/16/15 No, Referral Referring 03/25/19 Ronal Gomez MD [address] [place] [address] Primary Staff Physician Cardiology 10/20/18 Clarissa Tucker, DO [address] [place] [address] Primary Staff Physician Cardiology 11/01/21 Agricultural Sciences Professor Relationship Specialty Start Date End Date Alton Eisenberg MD [address] [place] [address] PCP - General Family Medicine 05/16/15 No, Referral Referring 03/25/19 Ronal Gomez MD [address] [place] [address] Primary Staff Physician Cardiology 10/20/18 Clarissa Tucker, DO [address] [place] [address] Primary Staff Physician Cardiology 11/01/21 Agricultural Sciences Professor Relationship Specialty Start Date End Date Alton Eisenberg MD [address] [place] [address] PCP - General Family Medicine 05/16/15 No, Referral Referring 03/25/19 Ronal Gomez MD [address] [place] [address] Primary Staff Physician Cardiology 10/20/18 Clarissa Tucker, DO [address] [place] [address] Primary Staff Physician Cardiology 11/01/21 Agricultural Sciences Professor Relationship Specialty Start Date End Date Alton Eisenberg MD [address] [place] [address] PCP - General Family Medicine 05/16/15 No, Referral Referring 03/25/19 Ronal Gomez MD [address] [place] [address] Primary Staff Physician Cardiology 10/20/18 Clarissa Tucker, DO [address] [place] [address] Primary Staff Physician Cardiology 11/01/21 Agricultural Sciences Professor Relationship Specialty Start Date End Date Alton Eisenberg MD [address] [place] [address] PCP - General Family Medicine 05/16/15 No, Referral Referring 03/25/19 Ronal Gomez MD [address] [place] [address] Primary Staff Physician Cardiology 10/20/18 Clarissa Tucker, DO [address] [place] [address] Primary Staff Physician Cardiology 11/01/21 Agricultural Sciences Professor Relationship Specialty Start Date End Date Alton Eisenberg MD [address] [place] [address] PCP - General Family Medicine 05/16/15 No, Referral Referring 03/25/19 Ronal Gomez MD [address] [place] [address] Primary Staff Physician Cardiology 10/20/18 Clarissa Tucker, DO [address] [place] [address] Primary Staff Physician Cardiology 11/01/21 Agricultural Sciences Professor Relationship Specialty Start Date End Date Alton Eisenberg MD [address] [place] [address] PCP - General Family Medicine 05/16/15 No, Referral Referring 03/25/19 Ronal Gomez MD [address] [place] [address] Primary Staff Physician Cardiology 10/20/18 Clarissa Tucker, DO [address] [place] [address] Primary Staff Physician Cardiology 11/01/21 Agricultural Sciences Professor Relationship Specialty Start Date End Date Alton Eisenberg MD [address] [facility] [place] [address] PCP - General Family Medicine 05/16/15 No, Referral Referring 03/25/19 Ronal Gomez MD [address] [place] [address] Primary Staff Physician Cardiology 10/20/18 Clarissa Tucker, DO [address] [place] [address] Primary Staff Physician Cardiology 11/01/21 Agricultural Sciences Professor Relationship Specialty Start Date End Date Alton Eisenberg MD [address] [place] [address] PCP - General Family Medicine 05/16/15 No, Referral Referring 03/25/19 Ronal Gomez MD [address] [place] [address] Primary Staff Physician Cardiology 10/20/18 Clarissa Tucker, DO [address] [place] [address] Primary Staff Physician Cardiology 11/01/21 Agricultural Sciences Professor Relationship Specialty Start Date End Date Alton Eisenberg MD [address] [facility] [place] [address] PCP - General Family Medicine 05/16/15 No, Referral Referring 03/25/19 Ronal Gomez MD [address] [place] [address] Primary Staff Physician Cardiology 10/20/18 Clarissa Tucker, DO [address] [place] [address] Primary Staff Physician Cardiology 11/01/21 Agricultural Sciences Professor Relationship Specialty Start Date End Date Alton Eisenberg MD [address] [facility] [place] [address] PCP - General Family Medicine 05/16/15 No, Referral Referring 03/25/19 Ronal Gomez MD [address] [place] [address] Primary Staff Physician Cardiology 10/20/18 Clarissa Tucker, DO [address] [place] [address] Primary Staff Physician Cardiology 11/01/21 Agricultural Sciences Professor Relationship Specialty Start Date End Date Alton Eisenberg MD [address] [place] [address] PCP - General Family Medicine 05/16/15 No, Referral Referring 03/25/19 Ronal Gomez MD [address] [place] [address] Primary Staff Physician Cardiology 10/20/18 Clarissa Tucker, DO [address] [facility] [place] [address] Primary Staff Physician Cardiology 11/01/21 Agricultural Sciences Professor Relationship Specialty Start Date End Date Alton Eisenberg MD [address] [facility] [place] [address] PCP - General Family Medicine 05/16/15 No, Referral Referring 03/25/19 Ronal Gomez MD [address] [place] [address] Primary Staff Physician Cardiology 10/20/18 Clarissa Tucker, DO [address] [place] [address] Primary Staff Physician Cardiology 11/01/21 Agricultural Sciences Professor Relationship Specialty Start Date End Date Alton Eisenberg MD [address] [facility] [place] [address] PCP - General Family Medicine 05/16/15 No, Referral Referring 03/25/19 Ronal Gomez MD [address] [place] [address] Primary Staff Physician Cardiology 10/20/18 Clarissa Tucker, DO [address] [place] [address] Primary Staff Physician Cardiology 11/01/21 Agricultural Sciences Professor Relationship Specialty Start Date End Date Alton Eisenberg MD [address] [place] [address] PCP - General Family Medicine 05/16/15 No, Referral Referring 03/25/19 Ronal Gomez MD [address] [place] [address] Primary Staff Physician Cardiology 10/20/18 Clarissa Tucker, DO [address] [place] [address] Primary Staff Physician Cardiology 11/01/21 Agricultural Sciences Professor Relationship Specialty Start Date End Date Alton Eisenberg MD [address] [facility] [place] [address] PCP - General Family Medicine 05/16/15 No, Referral Referring 03/25/19 Ronal Gomez MD [address] [place] [address] Primary Staff Physician Cardiology 10/20/18 Clarissa Tucker, DO [address] [place] [address] Primary Staff Physician Cardiology 11/01/21 Agricultural Sciences Professor Relationship Specialty Start Date End Date Alton Eisenberg MD [address] [place] [address] PCP - General Family Medicine 05/16/15 No, Referral Referring 03/25/19 Ronal Gomez MD [address] [place] [address] Primary Staff Physician Cardiology 10/20/18 Clarissa Tucker, DO [address] [place] [address] Primary Staff Physician Cardiology 11/01/21 Agricultural Sciences Professor Relationship Specialty Start Date End Date Alton Eisenberg MD [address] [place] [address] PCP - General Family Medicine 05/16/15 No, Referral Referring 03/25/19 Ronal Gomez MD [address] [place] [address] Primary Staff Physician Cardiology 10/20/18 Clarissa Tucker, DO [address] [place] [address] Primary Staff Physician Cardiology 11/01/21 Agricultural Sciences Professor Relationship Specialty Start Date End Date Alton Eisenberg MD [address] [place] [address] PCP - General Family Medicine 05/16/15 No, Referral Referring 03/25/19 Ronal Gomez MD [address] [place] [address] Primary Staff Physician Cardiology 10/20/18 Castillo Clarissalinda Dwyer, DO [address] [place] [address] Primary Staff Physician Cardiology 11/01/21 Agricultural Sciences Professor Relationship Specialty Start Date End Date Alton Eisenberg MD [address] [place] [address] PCP - General Family Medicine 05/16/15 No, Referral Referring 03/25/19 Ronal Gomez MD [address] [place] [address] Primary Staff Physician Cardiology 10/20/18 Clarissa Tucker, DO [address] [place] [address] Primary Staff Physician Cardiology 11/01/21 Agricultural Sciences Professor Relationship Specialty Start Date End Date Alton Eisenberg MD [address] [place] [address] PCP - General Family Medicine 05/16/15 No, Referral Referring 03/25/19 Ronal oGmez MD [address] [place] [address] Primary Staff Physician Cardiology 10/20/18 Clarissa Tucker, DO [address] [place] [address] Primary Staff Physician Cardiology 11/01/21 Agricultural Sciences Professor Relationship Specialty Start Date End Date Alton Eisenberg MD [address] [place] [address] PCP - General Family Medicine 05/16/15 No, Referral Referring 03/25/19 Ronal Gomez MD [address] [place] [address] Primary Staff Physician Cardiology 10/20/18 Clarissa Tucker DO [address] [place] [address] Primary Staff Physician Cardiology 11/01/21 Agricultural Sciences Professor Relationship Specialty Start Date End Date Alton Eisenberg MD [address] [place] [address] PCP - General Family Medicine 05/16/15 No, Referral Referring 03/25/19 Ronal Gomez MD [address] [place] [address] Primary Staff Physician Cardiology 10/20/18 Clarissa Tucker DO [address] [place] [address] Primary Staff Physician Cardiology 11/01/21 Agricultural Sciences Professor Relationship Specialty Start Date End Date Alton Eisenberg MD [address] [place] [address] PCP - General Family Medicine 05/16/15 No, Referral Referring 03/25/19 Ronal Gomez MD [address] [place] [address] Primary Staff Physician Cardiology 10/20/18 Clarissa Tucker DO [address] [place] [address] Primary Staff Physician Cardiology 11/01/21 Agricultural Sciences Professor Relationship Specialty Start Date End Date Alton Eisenberg MD [address] [place] [address] PCP - General Family Medicine 05/16/15 No, Referral Referring 03/25/19 Ronal Gomez MD [address] [place] [address] Primary Staff Physician Cardiology 10/20/18 Clarissa Tucker DO [address] [place] [address] Primary Staff Physician Cardiology 11/01/21 Agricultural Sciences Professor Relationship Specialty Start Date End Date Alton Eisenberg MD [address] [place] [address] PCP - General Family Medicine 05/16/15 No, Referral Referring 03/25/19 Ronal Gomez MD [address] [place] [address] Primary Staff Physician Cardiology 10/20/18 Clarissa Tucker DO [address] [place] [address] Primary Staff Physician Cardiology 11/01/21 Agricultural Sciences Professor Relationship Specialty Start Date End Date Alton Eisenberg MD [address] [place] [address] PCP - General Family Medicine 05/16/15 No, Referral Referring 03/25/19 Ronal Gomez MD [address] [place] [address] Primary Staff Physician Cardiology 10/20/18 Clarissa Tucker DO [address] [place] [address] Primary Staff Physician Cardiology 11/01/21 Agricultural Sciences Professor Relationship Specialty Start Date End Date Alton Eisenberg MD [address] [place] [address] PCP - General Family Medicine 05/16/15 No, Referral Referring 03/25/19 Ronal Gomez MD [address] [place] [address] Primary Staff Physician Cardiology 10/20/18 Clarissa Tucker DO [address] [place] [address] Primary Staff Physician Cardiology 11/01/21 Agricultural Sciences Professor Relationship Specialty Start Date End Date Alton Eisenberg MD [address] [place], [place] 218[address] PCP - General Family Medicine 05/16/15 No, Referral Referring 03/25/19 Ronal Gomez MD [address] [place] [address] Primary Staff Physician Cardiology 10/20/18 Clarissa Tucker DO [address] [place] [address] Primary Staff Physician Cardiology 11/01/21 Agricultural Sciences Professor Relationship Specialty Start Date End Date Alton Eisenberg MD [address] [place] [address] PCP - General Family Medicine 05/16/15 No, Referral Referring 03/25/19 Ronal Gomez MD [address] [place] [address] Primary Staff Physician Cardiology 10/20/18 Clarissa Tucker DO [address] [place] [address] Primary Staff Physician Cardiology 11/01/21 Agricultural Sciences Professor Relationship Specialty Start Date End Date Alton Eisenberg MD [address] [place] [address] PCP - General Family Medicine 05/16/15 No, Referral Referring 03/25/19 Ronal Gomez MD [address] [place] [address] Primary Staff Physician Cardiology 10/20/18 Clarissa Tucker DO [address] [place] [address] Primary Staff Physician Cardiology 11/01/21 Agricultural Sciences Professor Relationship Specialty Start Date End Date Alton Eisenberg MD [address] [place] [address] PCP - General Family Medicine 05/16/15 No, Referral Referring 03/25/19 Ronal Gomez MD [address] [place] [address] Primary Staff Physician Cardiology 10/20/18 Clarissa Tucker DO [address] [place] [address] Primary Staff Physician Cardiology 11/01/21 Agricultural Sciences Professor Relationship Specialty Start Date End Date Alton Eisenberg MD [address] [place] [address] PCP - General Family Medicine 05/16/15 No, Referral Referring 03/25/19 Ronal Gomez MD [address] [place], [place] 0034195 Primary Staff Physician Cardiology 10/20/18 Clarissa Tucker DO [address] [place] [address] Primary Staff Physician Cardiology 11/01/21 Agricultural Sciences Professor Relationship Specialty Start Date End Date Alton Eisenberg MD [address] [place] [address] PCP - General Family Medicine 05/16/15 No, Referral Referring 03/25/19 Ronal Gomez MD [address] [place], [place] 113[address]95 Primary Staff Physician Cardiology 10/20/18 Clarissa Tucker DO [address] [place] [address] Primary Staff Physician Cardiology 11/01/21 Agricultural Sciences Professor Relationship Specialty Start Date End Date Alton Eisenberg MD [address] [place] [address] PCP - General Family Medicine 05/16/15 No, Referral Referring 03/25/19 Ronal Gomez MD [address] [place] [address] Primary Staff Physician Cardiology 10/20/18 Clarissa Tucker DO [address] [place] [address] Primary Staff Physician Cardiology 11/01/21 Agricultural Sciences Professor Relationship Specialty Start Date End Date Alton Eisenberg MD [address] [place] [address] PCP - General Family Medicine 05/16/15 No, Referral Referring 03/25/19 Ronal Gomez MD [address] [place], [place] 8788095 Primary Staff Physician Cardiology 10/20/18 Clarissa Tucker DO [address] [place] [address] Primary Staff Physician Cardiology 11/01/21 Agricultural Sciences Professor Relationship Specialty Start Date End Date Alton Eisenberg MD [address] [place], [place] 844351 PCP - General Family Medicine 05/16/15 No, Referral Referring 03/25/19 Ronal Gomez MD [address] [place], [place] 8027895 Primary Staff Physician Cardiology 10/20/18 Clarissa Tucker DO [address] [place] [address] Primary Staff Physician Cardiology 11/01/21 Agricultural Sciences Professor Relationship Specialty Start Date End Date Alton Eisenberg MD [address] [place] [address] PCP - General Family Medicine 05/16/15 No, Referral Referring 03/25/19 Ronal Gomez MD [address] [place], [place] [address] Primary Staff Physician Cardiology 10/20/18 Clarissa Tucker DO [address] [place] [address] Primary Staff Physician Cardiology 11/01/21 Agricultural Sciences Professor Relationship Specialty Start Date End Date Alton Eisenberg MD [address] [place], [place] 47913[address] PCP - General Family Medicine 05/16/15 No, Referral Referring 03/25/19 Ronal Gomez MD [address] [place], [place] [address]294[address] Primary Staff Physician Cardiology 10/20/18 Clarissa Tucker DO [address] [place] [address] Primary Staff Physician Cardiology 11/01/21 Agricultural Sciences Professor Relationship Specialty Start Date End Date Alton Eisenberg MD [address] [place], [place] 12425[address] PCP - General Family Medicine 05/16/15 No, Referral Referring 03/25/19 Ronal Gomez MD [address] [place], [place] [id number] Primary Staff Physician Cardiology 10/20/18 Clarissa Tucker DO [address] [place] [address] Primary Staff Physician Cardiology 11/01/21 Agricultural Sciences Professor Relationship Specialty Start Date End Date Alton Eisenberg MD [address] [place], [place] 575[address] PCP - General Family Medicine 05/16/15 No, Referral Referring 03/25/19 Ronal Gomez MD [address] [place] [place], [place] 435[address] Primary Staff Physician Cardiology 10/20/18 Clarissa Tucker DO [address] [place], [place] 375[address] Primary Staff Physician Cardiology 11/01/21 Agricultural Sciences Professor Relationship Specialty Start Date End Date Alton Eisenberg MD [address] [place], [place] 443091 PCP - General Family Medicine 05/16/15 No, Referral Referring 03/25/19 Ronal Gomez MD [address] [place], [place] 4789195 Primary Staff Physician Cardiology 10/20/18 Clarissa Tucker DO [address] [place] [address] Primary Staff Physician Cardiology 11/01/21 Agricultural Sciences Professor Relationship Specialty Start Date End Date Alton Eisenberg MD [address] [place], [place] 97[address] PCP - General Family Medicine 05/16/15 No, Referral Referring 03/25/19 Ronal Gomez MD [address] [place], [place] 1304695 Primary Staff Physician Cardiology 10/20/18 Clarissa Tucker DO [address] [place] [address] Primary Staff Physician Cardiology 11/01/21 Agricultural Sciences Professor Relationship Specialty Start Date End Date Alton Eisenberg MD [address] [place], [place] 923601 PCP - General Family Medicine 05/16/15 No, Referral Referring 03/25/19 Ronal Gomez MD [address] [place], [place] 5894495 Primary Staff Physician Cardiology 10/20/18 Clarissa Tucker DO [address] [place] [address] Primary Staff Physician Cardiology 11/01/21 Agricultural Sciences Professor Relationship Specialty Start Date End Date Alton Eisenberg MD [address] [place], [place] 733101 PCP - General Family Medicine 05/16/15 No, Referral Referring 03/25/19 Ronal Gomez MD [address] [place] [address] Primary Staff Physician Cardiology 10/20/18 Clarissa Tucker DO [address] [place] [address] Primary Staff Physician Cardiology 11/01/21 Agricultural Sciences Professor Relationship Specialty Start Date End Date Alton Eisenberg MD [address] [place], [place] 122171 PCP - General Family Medicine 05/16/15 No, Referral Referring 03/25/19 Ronal Gomez MD [address] [place] [place], [place] 9958095 Primary Staff Physician Cardiology 10/20/18 Clarissa Tucker DO [address] [place] [address] Primary Staff Physician Cardiology 11/01/21 Agricultural Sciences Professor Relationship Specialty Start Date End Date Alton Eisenberg MD [address] [place], [place] 688551 PCP - General Family Medicine 05/16/15 No, Referral Referring 03/25/19 Ronal Gomez MD [address] [place], [place] 7227295 Primary Staff Physician Cardiology 10/20/18 Clarissa Tucker DO [address] [place] [address] Primary Staff Physician Cardiology 11/01/21 Agricultural Sciences Professor Relationship Specialty Start Date End Date Alton Eisenberg MD [address] [place], [place] 410621 PCP - General Family Medicine 05/16/15 No, Referral Referring 03/25/19 Ronal Gomez MD [address] [place], [place] 5453195 Primary Staff Physician Cardiology 10/20/18 Clarissa Tucker DO [address] [place] [address] Primary Staff Physician Cardiology 11/01/21 Agricultural Sciences Professor Relationship Specialty Start Date End Date Alton Eisenberg MD [address] [place], [place] 387041 PCP - General Family Medicine 05/16/15 No, Referral Referring 03/25/19 Ronal Gomez MD [address] [place], [place] [id number] Primary Staff Physician Cardiology 10/20/18 Clarissa Tucker DO [address] [place], [place] 6491506 Primary Staff Physician Cardiology 11/01/21 Chanel Gardner APRN.[employer] [address] [place] [address] [id number] [facility] 07/10/24 Kelsie Doshi PA-C [address] [place] [address] [id number] [facility] 07/10/24 Agricultural Sciences Professor Relationship Specialty Start Date End Date Alton Eisenberg MD [facility] [place], [place] [id number] PCP - General Family Medicine 05/16/15 No, Referral Referring 03/25/19 Ronal Gomez MD [address] [place], [place] [id number] Primary Staff Physician Cardiology 10/20/18 Clarissa Tucker DO [address] [place], [place] 1501606 Primary Staff Physician Cardiology 11/01/21 Chanel Gardner JULIANNE.[employer]ARD[employer] [address] [place], [place] 806311 Production Expert Family [facility] 07/10/24 Kelsie Doshi PA-C [address] [place], [place] 436831 Production Expert Family [facility] 07/10/24 Agricultural Sciences Professor Relationship Specialty Start Date End Date Alton Eisenberg MD [address] [place] [address] PCP - General Family Medicine 05/16/15 No, Referral Referring 03/25/19 Ronal Gomez MD [address] [place], [place] [id number] Primary Staff Physician Cardiology 10/20/18 Clarissa Tucker DO [address] [place] [address] Primary Staff Physician Cardiology 11/01/21 Chanel Gardner, JULIANNE.STEWARD/[employer]EWARDESS [employer] CLASS [address] [place] [address] Production Expert Family Medicine 07/10/24 Kelsie Doshi PA-C [address] [place] [address] [facility] [place] 07/10/24 Agricultural Sciences Professor Relationship Specialty Start Date End Date Alton Eisenberg MD [address] [place] [address] PCP - General Family Medicine 05/16/15 No, Referral Referring 03/25/19 Ronal Gomez MD [address] [place] [address] Primary Staff Physician Cardiology 10/20/18 Clarissa Tucker DO [address] [place] [address] Primary Staff Physician Cardiology 11/01/21 Chanel Gardner APRN.[employer]EWARD/[employer] [address] [place] [address] [phone] Production Expert Family Medicine 07/10/24 Kelsie Doshi PA-C [address] [place] [address] [phone] Production Expert Family [facility] 07/10/24 Agricultural Sciences Professor Relationship Specialty Start Date End Date Alton Eisenberg MD [address] [place] [address] 07753 PCP - General Family Medicine 05/16/15 No, Referral Referring 03/25/19 Ronal Gomez MD [address] [place] [address] Primary Staff Physician Cardiology 10/20/18 Clarissa Tucker DO [address] [place] [address] Primary Staff Physician Cardiology 11/01/21 Chanel Gardner APRN.STEWARD/[employer]ESS [employer] [address] [place] [address] [id number] Production Expert Family [facility] 07/10/24 Kelsie Doshi PA-C [facility] [place] [address] Production Expert Family [facility] 07/10/24 Agricultural Sciences Professor Relationship Specialty Start Date End Date Alton Eisenberg MD [address] [place] [address] 730861 PCP - General Family Medicine 05/16/15 No, Referral Referring 03/25/19 Ronal Gomez MD [address] [place], [place] [id number] Primary Staff Physician Cardiology 10/20/18 Clarissa Tucker DO [address] [place], [place] [id number] Primary Staff Physician Cardiology 11/01/21 Chanel Gardner APRN.[facility] [address] [place] [address] [phone] Production Expert Family [facility] 07/10/24 Kelsie Doshi PA-C [address] [place] [address] [phone] [facility] 07/10/24 Agricultural Sciences Professor Relationship Specialty Start Date End Date Alton Eisenberg MD [address] [place] [address] [id number] PCP - General Family Medicine 05/16/15 No, Referral Referring 03/25/19 Ronal Gomez MD [address] [place], [place] [id number] Primary Staff Physician Cardiology 10/20/18 Clarissa Tucker DO [address] [place], [place] [id number] Primary Staff Physician Cardiology 11/01/21 Chanel Gardner, JULIANNE.STEWARD/STEWARDESS E[employer] CLASS [address] [place], [place] 744381 [facility] 07/10/24 Kelsie Doshi PA-C [address] [place], [place] 455401 [facility] 07/10/24 Agricultural Sciences Professor Relationship Specialty Start Date End Date Alton Eisenberg MD [address] [place] [address] PCP - General Family Medicine 05/16/15 No, Referral Referring 03/25/19 Ronal Gomez MD [address] [place] [address] Primary Staff Physician Cardiology 10/20/18 Clarissa Tucker DO [address] [place] [address] Primary Staff Physician Cardiology 11/01/21 Chanel Gardner, JULIANNE.STEWARD/STEWARDESS E[employer] CLASS [address] [place], [place] 080321 [facility] 07/10/24 Kelsie Doshi PA-C [address] [place], [place] [phone] [facility] 07/10/24 Agricultural Sciences Professor Relationship Specialty Start Date End Date Alton Eisenberg MD [address] [place] [address] PCP - General Family Medicine 05/16/15 No, Referral Referring 03/25/19 Ronal Gomez MD [address] [place] [address] Primary Staff Physician Cardiology 10/20/18 Clarissa Tucker DO [address] [place] [address] Primary Staff Physician Cardiology 11/01/21 Chanel Gardner, JULIANNE.STEWARD/[employer]ESS [employer] [address] [place] [address] [id number] [facility] 07/10/24 Kelsie Doshi PA-C [address] [place] [address] [phone] [facility] 07/10/24 Agricultural Sciences Professor Relationship Specialty Start Date End Date Alton Eisenberg MD [address] [place] [address] 50854 PCP - General Family Medicine 11/08/24 No, Referral Referring 03/25/19 Ronal oGmez MD [address] [place] [address] Primary Staff Physician Cardiology 10/20/18 Clarissa Tucker DO [address] [place] [address] Primary Staff Physician Cardiology 11/01/21 Chanel Gardner APRN.STEWARD/[employer]ESS [employer] [address] [place] [address] [id number] [facility] 07/10/24 Kelsie Doshi PA-C [address] [place] [address] [phone] Production Expert Family Medicine 07/10/24 Agricultural Sciences Professor Relationship Specialty Start Date End Date Alton Eisenberg MD [address] [place] [address] PCP - General Family Medicine 11/08/24 No, Referral Referring 03/25/19 Ronal Gomez MD [address] [place], [place] [id number] Primary Staff Physician Cardiology 10/20/18 Clarissa Tucker DO [address] [place], [place] 6477006 Primary Staff Physician Cardiology 11/01/21 Chanel Gardner APRN.[facility] [address] [place] [address] 91242 Production Expert Family Medicine 07/10/24 Kelsie Doshi PA-C [address] [place] [address] 16652 Production Expert Family [facility] 07/10/24 Agricultural Sciences Professor Relationship Specialty Start Date End Date Alton Eisenberg MD [address] [place] [address] PCP - General Family Medicine 11/08/24 No, Referral Referring 03/25/19 Ronal Gomez MD [address] [place], [place] [id number] Primary Staff Physician Cardiology 10/20/18 Clarissa Tucker DO [address] [place], [place] 0028206 Primary Staff Physician Cardiology 11/01/21 Chanel Gardner APRN.STEWARD/[employer]ESS [employer] CLASS [address] [place], [place] 277401 [facility] 07/10/24 Kelsie Doshi PA-C [facility] [place], [place] 276241 [facility] 07/10/24 Agricultural Sciences Professor Relationship Specialty Start Date End Date Alton Eisenberg MD [address] [place], [place] [phone] PCP - General Family Medicine 11/08/24 No, Referral Referring 03/25/19 Ronal Gomez MD [address] [place], [place] [id number] Primary Staff Physician Cardiology 10/20/18 Clarissa Tucker DO [address] [place] [address] Primary Staff Physician Cardiology 11/01/21 Chanel Gardner, JULIANNE.STEWARD/[employer]EW[employer]ESS [employer] [address] [place] [address] [id number] [facility] 07/10/24 Kelsie Doshi PA-C [address] [place], [place] [phone] [facility] 07/10/24 Agricultural Sciences Professor Relationship Specialty Start Date End Date Alton Eisenberg MD [address] [place], [place] [id number] PCP - General Family Medicine 11/08/24 No, Referral Referring 03/25/19 Ronal Gomez MD [address] [place] [address] Primary Staff Physician Cardiology 10/20/18 Clarissa Tucker DO [address] [place] [address] Primary Staff Physician Cardiology 11/01/21 Chanel Gardner APRN.STEWARD/[employer] [address] [place] [address] [id number] [facility] 07/10/24 Kelsie Doshi PA-C [address] [place] [address] [phone] [facility] 07/10/24 Agricultural Sciences Professor Relationship Specialty Start Date End Date Alton Eisenberg MD [address] [place] [address] 076331 PCP - General Family Medicine 11/08/24 No, Referral Referring 03/25/19 Ronal Gomez MD [address] [place] [address] Primary Staff Physician Cardiology 10/20/18 Clarissa Tucker DO [address] [place] [address] Primary Staff Physician Cardiology 11/01/21 Chanel Gardner APRN.STEWARD/[employer] [address] [place] [address] [id number] [facility] 07/10/24 Kelsie Doshi PA-C [address] [place] [address] 9[address] Production Expert Family Medicine 07/10/24 Agricultural Sciences Professor Relationship Specialty Start Date End Date Alton Eisenberg MD [address] [place] [address] PCP - General Family Medicine 11/08/24 No, Referral Referring 03/25/19 Ronal Gomez MD [address] [place] [address] Primary Staff Physician Cardiology 10/20/18 Clarissa Tucker DO [address] [place] [address] Primary Staff Physician Cardiology 11/01/21 Chanel Gardner APRN.[facility] [address] [place] [address] 56299 Production Expert Family Medicine 07/10/24 Kelsie Doshi PA-C [address] [place] [address] 78716 Production Expert Family Medicine 07/10/24 Agricultural Sciences Professor Relationship Specialty Start Date End Date Alton Eisenberg MD [address] [place] [address] PCP - General Family Medicine 11/08/24 No, Referral Referring 03/25/19 Ronal Gomez MD [address] [place] [address] Primary Staff Physician Cardiology 10/20/18 Clarissa Tucker DO [address] [place] [address] Primary Staff Physician Cardiology 11/01/21 Chanel Gardner APRN.[facility] [address] [place], [place] 746351 Production Expert Family [facility] 07/10/24 Kelsie Doshi PA-C [address] [place] [address] 91939 [facility] 07/10/24 Agricultural Sciences Professor Relationship Specialty Start Date End Date Alton Eisenberg MD [address] [place] [address] PCP - General Family Medicine 11/08/24 No, Referral Referring 03/25/19 Ronal Gomez MD [address] [place] [phone] Primary Staff Physician Cardiology 10/20/18 Clarissa Tucker DO [address] [place] [address] Primary Staff Physician Cardiology 11/01/21 Kelsie Doshi PA-C [address] [place], [place] [phone] [facility] 07/10/24 Agricultural Sciences Professor Relationship Specialty Start Date End Date Alton Eisenberg MD [address] [place], [place] 441761 PCP - General Family Medicine 11/08/24 No, Referral Referring 03/25/19 Ronal Gomez MD [address] [place], [place] [id number] Primary Staff Physician Cardiology 10/20/18 Clarissa Tucker DO [address] [place] [address] Primary Staff Physician Cardiology 11/01/21 Kelsie Doshi PA-C [address] [place], [place] 431771 [facility] [place] [place] 07/10/24 Agricultural Sciences Professor Relationship Specialty Start Date End Date Alton Eisenberg MD [address] [place], [place] 110011 PCP - General Family Medicine 11/08/24 No, Referral Referring 03/25/19 Ronal Gomez MD [address] [place] [address] Primary Staff Physician Cardiology 10/20/18 Clarissa Tucker DO [address] [place] [address] Primary Staff Physician Cardiology 11/01/21 Kelsie Doshi PA-C [address] [place], [place] 900521 [facility] 07/10/24 Agricultural Sciences Professor Relationship Specialty Start Date End Date Alton Eisenberg MD [address] [place], [place] 232771 PCP - General Family Medicine 11/08/24 No, Referral Referring 03/25/19 Ronal Gomez MD [address] [place], [place] 8502795 Primary Staff Physician Cardiology 10/20/18 Clarissa Tucker DO [address] [place] [address] Primary Staff Physician Cardiology 11/01/21 Chanel Gardner APRN.STEWARD/STEWARDESS E[employer] CLASS [address] [place] [address] 18917 [facility] Family [facility] 01/03/25 Kelsie Doshi PA-C [address] [place] [address] 64023 [facility] 01/03/25 Agricultural Sciences Professor Relationship Specialty Start Date End Date Alton Eisenberg MD [address] [place] [address] 05907 PCP - General Family Medicine 11/08/24 No, Referral Referring 03/25/19 Ronal Gomez MD [address] [place], [place] [phone] Primary Staff Physician Cardiology 10/20/18 Clarissa Tucker DO [address] [place] [address] Primary Staff Physician Cardiology 11/01/21 Chanel Gardner APRN.STEWARD/STEWARDESS [employer] [address] [place] [address] [id number] [facility] 01/03/25 Kelsie Doshi PA-C [facility] [place] [address] [facility] 01/03/25 Agricultural Sciences Professor Relationship Specialty Start Date End Date Alton Eisenberg MD [address] [place] [address] PCP - General Family Medicine 11/08/24 No, Referral Referring 03/25/19 Ronal Gomez MD [address] [place] [address] Primary Staff Physician Cardiology 10/20/18 Clarissa Tucker DO [address] [place] [address] Primary Staff Physician Cardiology 11/01/21 Chanel Gardner APRN.STEWARD/[employer] [address] [place] [address] 95506 Production Expert Family Medicine 01/03/25 Kelsie Doshi PA-C [address] [place] [address] 68947 Production Expert Family Medicine 01/03/25 Agricultural Sciences Professor Relationship Specialty Start Date End Date Alton Eisenberg MD [address] [place] [address] PCP - General Family Medicine 11/08/24 No, Referral Referring 03/25/19 Ronal Gomez MD [address] [place] [address] Primary Staff Physician Cardiology 10/20/18 Clarissa Tucker DO [address] [place] [address] Primary Staff Physician Cardiology 11/01/21 Chanel Gardner APRN.STEWARD/[employer]ESS [employer] [address] [place] [address] 609011 Production Expert Family Medicine 01/03/25 Kelsie Doshi PA-C [address] [place], [place] 378051 Production Expert Family [facility] 01/03/25 Agricultural Sciences Professor Relationship Specialty Start Date End Date Alton Eisenberg MD [address] [place] [address] PCP - General Family Medicine 11/08/24 No, Referral Referring 03/25/19 Ronal Gomez MD [address] [place], [place] 0730295 Primary Staff Physician Cardiology 10/20/18 Clarissa Tucker DO [address] [place] [address] Primary Staff Physician Cardiology 11/01/21 Chanel Gardner APRN.STEWARD/STEWARDESS E[employer]OMY CLASS [address] [place] [address] [facility] Family [facility] 01/03/25 Kelsie Doshi PA-C [address] [place] [address] [facility] 01/03/25 Agricultural Sciences Professor Relationship Specialty Start Date End Date Alton Eisenberg MD [address] [place], [place] 770671 PCP - General Family Medicine 11/08/24 No, Referral Referring 03/25/19 Ronal Gomez MD [address] [place], [place] [phone] Primary Staff Physician Cardiology 10/20/18 Clarissa Tucker DO [address] [place], [place] 6687206 Primary Staff Physician Cardiology 11/01/21 Chanel Gardner, JULIANNE.STEWARD/STEWARDESS ECONOMY CLASS [address] [place], [place] 042271 [facility] 01/03/25 Kelsie Doshi PA-C [address] [place] [address] [phone] [facility] 01/03/25 Agricultural Sciences Professor Relationship Specialty Start Date End Date Alton Eisenberg MD [address] [place] [address] 21052 PCP - General Family Medicine 11/08/24 No, Referral Referring 03/25/19 Ronal Gomez MD [address] [place], [place] [phone] Primary Staff Physician Cardiology 10/20/18 Clarissa Tucker DO [address] [place] [address] Primary Staff Physician Cardiology 11/01/21 Chanel Gardner, JULIANNE.STEWARD/STEWARDESS E[employer]Y CLASS [address] [place] [address] [id number] [facility] 01/03/25 Kelsie Doshi PA-C [address] [place] [address] [facility] 01/03/25 Agricultural Sciences Professor Relationship Specialty Start Date End Date Alton Eisenberg MD [address] [place], [place] 708081 PCP - General Family Medicine 11/08/24 No, Referral Referring 03/25/19 Ronal Gomez MD [address] [facility] [place] [place] 8026495 Primary Staff Physician Cardiology 10/20/18 Clarissa Tucker DO [address] [place], [place] 5487506 Primary Staff Physician Cardiology 11/01/21 Chanel Gardner APRN.STEWARD/STEWARDESS E[employer] CLASS [address] [place] [address] [id number] Production Expert Family Medicine 01/03/25 Kelsie Doshi PA-C [address] [place] [address] [phone] [facility] 01/03/25 Agricultural Sciences Professor Relationship Specialty Start Date End Date Alton Eisenberg MD [address] [place] [address] PCP - General Family Medicine 11/08/24 No, Referral Referring 03/25/19 Ronal Gomez MD [address] [place] [address] Primary Staff Physician Cardiology 10/20/18 Clarissa Tucker DO [address] [place] [address] Primary Staff Physician Cardiology 11/01/21 Chanel Gardner APRN.STEWARD/STEWARDESS E[employer] CLASS [address] [place] [address] [id number] Production Expert Family Medicine 07/10/24 12/19/24 Kelsie Doshi PA-C [address] [place] [address] [phone] Production Expert Family [facility] 07/10/24 01/02/25 Chanel Gardner APRN.STEWARD/STEWARDESS E[employer] CLASS [address] [place] [address] [id number] [facility] 01/03/25 Kelsie Doshi PA-C [address] [place] [address] [phone] [facility] 01/03/25 Agricultural Sciences Professor Relationship Specialty Start Date End Date Alton Eisenberg MD [address] [place] [address] 334751 PCP - General Family Medicine 11/08/24 No, Referral Referring 03/25/19 Ronal Gomez MD [address] [place], [place] [phone] Primary Staff Physician Cardiology 10/20/18 Clarissa Tucker DO [address] [place] [address] Primary Staff Physician Cardiology 11/01/21 Chanel Gardner APRN.STEWARD/STEWARDESS E[employer] CLASS [address] [place] [address] [id number] [facility] 01/03/25 Kelsie Doshi PA-C [address] [place] [address] 44691 Production Expert Family Medicine 01/03/25 Agricultural Sciences Professor Relationship Specialty Start Date End Date Alton Eisenberg MD [address] [place] [address] PCP - General Family Medicine 11/08/24 No, Referral Referring 03/25/19 Ronal Gomez MD [address] [place], [place] 9665895 Primary Staff Physician Cardiology 10/20/18 Clarissa Tucker DO [address] [place] [address] Primary Staff Physician Cardiology 11/01/21 Chanel Gardner APRN.STEWARD/STEW[employer]ESS [employer] [address] [place] [address] [id number] Production Expert Family [facility] 07/10/24 12/19/24 Kelsie Doshi PA-C [address] [place] [address] [id number] [facility] Family [facility] 07/10/24 01/02/25 Chanel Gardner APRN.STEWARD/STEWARDESS E[employer] CLASS [address] [place] [address] [id number] [facility] 01/03/25 Kelsie Doshi PA-C [address] [place] [address] [id number] [facility] 01/03/25 Agricultural Sciences Professor Relationship Specialty Start Date End Date Alton Eisenberg MD [address] [place] [address] PCP - General Family Medicine 11/08/24 No, Referral Referring 03/25/19 Ronal Gomez MD [address] [facility] [place] [place] [phone] Primary Staff Physician Cardiology 10/20/18 Clarissa Tucker DO [address] [place], [place] 2463306 Primary Staff Physician Cardiology 11/01/21 Chanel Gardner, JULIANNE.STEWARD/STEWARDESS E[employer] CLASS [address] [place] [address] [id number] [facility] 01/03/25 Kelsie Doshi PA-C [address] [place] [address] [phone] [facility] 01/03/25 Agricultural Sciences Professor Relationship Specialty Start Date End Date Alton Eisenberg MD [address] [place] [address] [phone] PCP - General Family Medicine 11/08/24 No, Referral Referring 03/25/19 Ronal Gomez MD [address] [place] [address] Primary Staff Physician Cardiology 10/20/18 Clarissa Tucker DO [address] [place] [address] Primary Staff Physician Cardiology 11/01/21 Chanel Gardner APRN.STEWARD/STEWARDESS E[employer] CLASS [address] [place] [address] [id number] [facility] 01/03/25 Kelsie Doshi PA-C [address] [place], [place] 830101 Production Expert Family Medicine 01/03/25 Agricultural Sciences Professor Relationship Specialty Start Date End Date Alton Eisenberg MD [address] [place] [address] PCP - General Family Medicine 11/08/24 No, Referral Referring 03/25/19 Ronal Gomez MD [address] [place], [place] 1055295 Primary Staff Physician Cardiology 10/20/18 Clarissa Tucker DO [address] [place], [place] 5443206 Primary Staff Physician Cardiology 11/01/21 Chanel Gardner APRN.STEWARD/STEWARDESS E[employer] CLASS [address] [place] [address] [id number] [facility] 01/03/25 Kelsie Doshi PA-C [address] [place] [address] 20957 [facility] 01/03/25 Agricultural Sciences Professor Relationship Specialty Start Date End Date Alton Eisenberg MD [address] [place] [address] PCP - General Family Medicine 11/08/24 No, Referral Referring 03/25/19 Ronal Gomez MD [address] [place], [place] [id number] Primary Staff Physician Cardiology 10/20/18 Clarissa Tucker DO [address] [place] [address] Primary Staff Physician Cardiology 11/01/21 Chanel Gardner APRN.STEWARD/STEW[employer]ESS [employer] [address] [place] [address] 84266 Production Expert Family Medicine 01/03/25 Kelsie Doshi PA-C [address] [place] [address] 17969 Production Expert Family Medicine 01/03/25 Agricultural Sciences Professor Relationship Specialty Start Date End Date Alton Eisenberg MD [address] [place], [place] 507471 PCP - General Family Medicine 11/08/24 No, Referral Referring 03/25/19 Ronal Gomez MD [address] [place] [address] Primary Staff Physician Cardiology 10/20/18 Clarissa Tucker DO [address] [place] [address] Primary Staff Physician Cardiology 11/01/21 Chanel Gardner APRN.STEWARD/ST[employer]ESS [employer] [address] [place] [address] 68971 Production Expert Family Medicine 01/03/25 Kelsie Doshi PA-C [address] [place] [address] 61792 Production Expert Family Medicine 01/03/25 Agricultural Sciences Professor Relationship Specialty Start Date End Date Alton Eisenberg MD [address] [place] [address] 27874 PCP - General Family Medicine 11/08/24 No, Referral Referring 03/25/19 Ronal Gomez MD [address] [place], [place] [phone] Primary Staff Physician Cardiology 10/20/18 Clarissa Tucker DO [address] [place] [address] Primary Staff Physician Cardiology 11/01/21 Chanel Gardner APRN.STEWARD/STEW[employer]ESS E[employer] CLASS [address] [place] [address] [id number] [facility] 01/03/25 Kelsie Doshi PA-C [address] [place] [address] [phone] [facility] 01/03/25 Agricultural Sciences Professor Relationship Specialty Start Date End Date Alton Eisenberg MD [address] [place] [address] [phone] PCP - General Family Medicine 11/08/24 No, Referral Referring 03/25/19 Ronal Gomez MD [address] [place] [address] Primary Staff Physician Cardiology 10/20/18 Clarissa Tucker DO [address] [place] [address] Primary Staff Physician Cardiology 11/01/21 Chanel Gardner APRN.STEWARD/[employer]ESS [employer] [address] [place] [address] [phone] Production Expert Family Medicine 01/03/25 Kelsie Doshi PA-C [address] [place], [place] 446891 Production Expert [facility] 01/03/25 Reason for Visit (unrecogniz ed section and content) Reason Comments PT Discharge Specialty Diagnoses / Procedures Referred By Contac t Referred To Contact Physical Therapy / PHYSICAL THERAPY Diagnoses S82.831D - Closed avulsion fracture of Right distal fibula Procedures EST RS PT ORTH Santiago Campos, V, DO [address] [place] [address] Phone: tel: fax: Michele Monteiro, PT [address] [place] [address] Phone: tel: fax: Referral ID Status Reason Start Date Expiration Date V isits Requested Visits Authorized [id number] Authorized 02/01/2025 08/03/2025 99 99 Reason Comments Physical Therapy Reason Comments PT Progress Note Specialty Diagnoses / Procedures Referred By Contac t Referred To Contact CARDIOVASCULAR MEDICINE Diagnoses Chronic diastolic heart failure (HCC) Procedures EST PATIENT VISIT LEVEL 1 Dave Alcala MD [address] [place] [address] Phone: tel: fax: Cardiology [address] [place] [address] Phone: tel: Referral ID Status Reason Start Date Expiration Date Visits Requested Visits Authorized [id number] Authorized OON/Self Pay Override 11/27/2023 08/03/2025 99 99 Reason Comments F/U 6 months Specialty Diagnoses / Procedures Referred By Contac t Referred To Contact FAMILY MEDICINE Diagnoses wellness Procedures wellness Alton Eisenberg MD [address] [place] [address] Phone: tel: fax: Family Medicine [place] [address] [place] [address] Phone: tel: Referral ID Status Reason Start Date Expiration Date Visits Requested Visits Authorized [id number] New Request OON/Self Pay Override 4 08/26/2025 1 1 Reason Comments Recheck Left ankle sprain Specialty Diagnoses / Procedures Referred By Coni son Referred To Contact FAMILY MEDICINE Diagnoses cough,congestion Procedures office visit Self Alton Eisenberg MD [address] [place] [address] Referral ID Status Reason Start Date Expiration Date Visits Requested Visits Authorized [id number] Outside PCP OON/Self Pay Override 3 11/08/2024 1 1 Reason Comments left ankle pain Patient twisted ankl e while wakling on 06/01/24 Reason Comments Physical Reason Comments Follow Up Specialty Diagnoses / Procedures Referred By Coni son Referred To Contact CARDIOVASCULAR MEDICINE Diagnoses Chronic diastolic heart failure (HCC) Procedures EST PATIENT VISIT LEVEL 1 Dave Alcala MD [address] [place] [address] [address] [place] [address] Referral ID Status Reason Start Date Expiration Date Visits Requested Visits Authorized [id number] Authorized OON/Self Pay Override 11/27/2023 08/03/2025 99 99 Specialty Diagnoses / Procedures Referred By Contact Referred To Contact Cardiology / CARDIOVASCULAR MEDICINE Diagnoses Arrhythmogenic right ventricular cardiomyopathy (HCC) Dx: AVRC (Arrhythmogenic right ventricular cardiomyopathy) Per Daniela Procedures OFFICE/OUTPATIENT NEW SF MDM 15-29 MINUTES OFFICE/OUTPATIENT NEW HIGH MDM 60-74 MINUTES NEW SYNCOPE Ronal Gomez MD [address] [place] [address] Henrry Duarte MD [address] [phone] Referral ID Status Reason Start Date Expiration Date V isits Requested Visits Authorized [id number] Authorized 10/23/2021 08/03/2022 99 99 Reason Comments Results Reason Comments Cough cough, sinus, conges tion, GARCIA and ear pain x 6 days Reason Comments Cough Pt completed ATB, re ported bilateral ear pain, intermittent SOB x2 wks Reason Comments Consult Specialty Diagnoses / Procedures Referred By Contact Referred To Contact Cardiology / CARDIOVASCULAR MEDICINE Diagnoses Arrhythmogenic right ventricular cardiomyopathy (HCC) Procedures CONSULT TO CARDIOLOGY OFFICE/OUTPATIENT NEW [facility] MDM 60-74 MINUTES Clarissa Tucker DO [address] [place] [address] Dave Alcala MD [address] [place] [address] Referral ID Status Reason Start Date Expiration Date V isits Requested Visits Authorized [id number] Closed PCP Requested Referral 01/18/2022 08/03/2022 1 1 Reason Onset Date Comments Refill Request 05/14/2022 Reason Comments Constipation Abdominal Pain Reason Comments Abdominal Pain Reason Comments Results Reason Comments Follow Up Specialty Diagnoses / Procedures Referred By Contac t Referred To Contact CARD [place] Diagnoses Other cardiomyopathies Essential (primary) hypertension Presence of automatic (implantable) cardiac defibrillator Follow-up exam Dx: Arrhythmogenic right ventricular cardiomyopathy (HCC) [I42.8 (ICD-10-CM)]; Hypertension, essential [I10 (ICD-10-CM)]; Arrhythmogenic right ventricular dysplasia (HCC) [I42.8 (ICD-10-CM)]; Presence of combination internal cardiac defibrillator (ICD) and pacemaker [Z95.810 (ICD-10-CM)] 6 MONTH F/U W/ ECHO HVI F/U ORD Procedures REFERRAL TO [facility] FINANCIAL COUNSELOR OFFICE/OUTPATIENT EST PT MAY NOT REQ PHYS/QHP OFFICE/OUTPATIENT ESTABLISHED HIGH MDM 40-54 MIN EST CHF Dave Alcala MD [address] [place] [address] Dave Alcala MD [address] [place] [address] Referral ID Status Reason Start Date Expiration Date V isits Requested Visits Authorized [id number] Closed Financial Clearance Required - OON Payor 07/14/2022 08/03/2022 1 1 Reason Comments Consult Abdominal pain Specialty Diagnoses / Procedures Referred By Contac t Referred To Contact General Surgery / GENERAL SURGERY Diagnoses Abdominal pain, unspecified abdominal location Procedures CONSULT TO GENERAL SURGERY OFFICE/OUTPATIENT NEW HIGH MDM 60-74 MINUTES Kelsie Doshi PA-C [address] [place] [address] [facility] [address] [place] [address] Referral ID Status Reason Start Date Expiration Date V isits Requested Visits Authorized [id number] Closed PCP Requested Referral 07/31/2022 08/03/2023 1 1 Reason Onset Date Comments Refill Request 08/25/2022 Reason Comments Returning Patient's Call Reason Comments Ear Problem Specialty Diagnoses / Procedures Referred By Contact Referred To Contact Cardiology / CARDIOVASCULAR MEDICINE Diagnoses Arrhythmogenic right ventricular cardiomyopathy (HCC) Arrhythmogenic right ventricular cardiomyopathy 1 YEAR FOLLOW UP EKG PER HVI F/U ORDER Procedures OFFICE/OUTPATIENT ESTABLISHED SF MDM 10-19 MIN OFFICE/OUTPATIENT ESTABLISHED LOW MDM 20-29 MIN OFFICE/OUTPATIENT ESTABLISHED MOD MDM 30-39 MIN OFFICE/OUTPATIENT ESTABLISHED HIGH MDM 40-54 MIN EST SYNCOPE Clarissa Tucker, DO [address] [phone] Clarissa Tucker, DO [address] [phone] Referral ID Status Reason Start Date Expiration Date V isits Requested Visits Authorized [id number] Authorized 10/18/2022 08/03/2023 99 99 Reason Comments Follow Up Reason Comments Pain (Shoulder Pain) Reason Onset Date Comments Refill Request 03/10/2023 Reason Comments New Pain Specialty Diagnoses / Procedures Referred By Contac t Referred To Contact Podiatry / [facility] DEPARTMENT Diagnoses Foot pain, bilateral Procedures CONSULT TO PODIATRY OFFICE/OUTPATIENT NEW HIGH MDM 60-74 MINUTES Alton Eisenberg MD [address] [place] [address] [place] [address] Referral ID Status Reason Start Date Expiration Date Visits Requested Visits Authorized [id number] Authorized PCP Requested Referral 08/04/2022 08/03/2023 99 99 Reason Comments Physical Reason Comments Appointment Cancelled Specialty Diagnoses / Procedures Referred By Coni t Referred To Contact PHYSICAL THERAPY Diagnoses Chronic pain of both feet Procedures NEW PATIENT VISIT LEVEL 1 Mendoza Ornelas [address] [place] [address] Pt [facility] [address] [place] [address] Referral ID Status Reason Start Date Expiration Date Visits Requested Visits Authorized [id number] Authorized OON/Self Pay Override 08/04/2022 08/03/2023 99 99 Reason Comments Pain Left side low back p ain. Some nausea yesterday and this morning on and off. Has been told in the past she has kidney stones. Abnormal Weight Gain 4lb weight gain in the last 5 days Reason Onset Date Comments Refill Request 07/03/2023 Reason Comments Laceration index finger left garcia nd x 1 hour, kitchen knife Reason Comments Patient Question regarding ENT referr al Consult Reason Comments Yearly Exam Specialty Diagnoses / Procedures Referred By Coni son Referred To Contact COLLEGE SCOUTING COORDINATOR Diagnoses Encounter for gynecological examination Procedures CONSULT TO COLLEGE SCOUTING COORDINATOR OFFICE/OUTPATIENT [facility] 60-74 MINUTES Alton Eisenberg MD [address] [place] [address] Computer Aided Design Operator [facility] [address] [place] [address] Referral ID Status Reason Start Date Expiration Date V isits Requested Visits Authorized [id number] Closed PCP Requested Referral Auto-Generated Referral OON/Self Pay Override 09/12/2023 08/03/2024 1 1 Reason Comments Hearing Loss Gradual decreased he aring loss Specialty Diagnoses / Procedures Referred By Coni t Referred To Contact Ent - [facility] / [facility] Diagnoses Bilateral hearing loss, unspecified hearing loss type Procedures CONSULT TO ENT OFFICE/OUTPATIENT [facility] MDM 60 MINUTES Kelsie Doshi PA-C [address] [place] [address] [facility] [address] [place] [address] Referral ID Status Reason Start Date Expiration Date V isits Requested Visits Authorized [id number] Closed PCP Requested Referral OON/Self Pay Override 09/08/2023 08/03/2024 2 2 Reason Comments Hearing Loss Failed hearing scree lowell Specialty Diagnoses / Procedures Referred By Coni son Referred To Contact Ent - [facility] / [facility] Diagnoses Bilateral hearing loss, unspecified hearing loss type Procedures CONSULT TO ENT OFFICE/OUTPATIENT NEW HIGH MDM 60 MINUTES Kelsie Doshi PA-C [facility] [place] [place] [address] [facility] [address] [place] [address] Specialty Diagnoses / Procedures Referred By Contact Referred To Contact Cardiology / CARDIOVASCULAR MEDICINE Diagnoses Arrhythmogenic right ventricular cardiomyopathy (HCC) Hypertension, essential Arrhythmogenic right ventricular dysplasia (HCC) Dx: Arrhythmogenic right ventricular cardiomyopathy; Hypertension, essential; Arrhythmogenic right ventricular dysplasia; Presence of combination internal cardiac defibrillator (ICD) and pacemaker BMP, NT-pROBNP, EKG, ECHO, Pacemaker: DAYNA, Model [id number] [employer] [address] XT DR, Serial Number [id number], Implant Date 01/06/2017 Procedures OFFICE/OUTPATIENT ESTABLISHED HIGH MDM 40-54 [place] [address] [place], [place] [address] [place] [address] Dave Alcala MD [address] [place] [address] Referral ID Status Reason Start Date Expiration Date Visits Re quested Visits Authorized [id number] Closed 08/06/2023 08/03/2024 1 1 Reason Comments Research IRB #[id number] [facility] PKP2 study Specialty Diagnoses / Procedures Referred By Coni son Referred To Contact [facility] [place] Diagnoses followup Procedures followup Dave Alcala MD [address] [place] [address] [facility] [address] [place] [address] Referral ID Status Reason Start Date Expiration Date Visits Requested Visits Authorized [id number] Pending Review OON/Self Pay Override 10/24/2023 01/31/2025 1 1 Reason Comments Event ZIO PATCH Specialty Diagnoses / Procedures Referred By Contact Referred To Contact Cardiology / CARDIOVASCULAR MEDICINE Diagnoses Chronic systolic (congestive) heart failure Procedures ZIO PATCH Sherrell Montesinos APRN.STEWARD/STEWARDESS ECONOMY CLASS [address] [place] [address] [facility] Main [address] [phone] Referral ID Status Reason Start Date Expiration Date Visits Requested Visits Authorized [id number] Pending Review OON/Self Pay Override 11/27/2023 03/06/2025 1 1 Reason Comments Fall Nose pain and swelli ng X 1 week post fall Specialty Diagnoses / Procedures Referred By Coni son Referred To Contact INTERNAL MEDICINE Diagnoses fell bumped nose and is now tender to touch Procedures CL[place] [address] [place] [address] [place] [address] [address] [place] [address] Referral ID Status Reason Start Date Expiration Date Visits Requested Visits Authorized [id number] Pending Review OON/Self Pay Override 12/08/2023 03/17/2025 1 1 Reason Comments Nose Injury November 30 fell, nasal fracture, lots of drainage, congestion Specialty Diagnoses / Procedures Referred By Contact Referred To Contact Ent - Otolaryngology / ENT-OTOLARYNGOLOGY Diagnoses Closed fracture of nasal bone, initial encounter Procedures CONSULT TO ENT OFFICE/OUTPATIENT NEW HIGH MDM 60 MINUTES OFFICE/OUTPATIENT NEW MODERATE MDM 45 MINUTES OFFICE/OUTPATIENT NEW LOW MDM 30 MINUTES OFFICE/OUTPATIENT NEW SF MDM 15 MINUTES Chanel Gardner, HOUSEKEEPER.STEWARD/STEWARDESS ECONOMY CLASS [address] [place] [address] [facility] [address] [address] Referral ID Status Reason Start Date Expiration Date V isits Requested Visits Authorized [id number] Closed PCP Requested Referral OON/Self Pay Override 08/04/2023 08/03/2024 1 1 Reason Comments Follow Up Possible tick Reason Onset Date Comments Refill Request 04/21/2024 Specialty Diagnoses / Procedures Referred By Contac t Referred To Contact [facility]ARD [place] Diagnoses Arrhythmogenic right ventricular cardiomyopathy (HCC) Procedures EST PATIENT VISIT LEVEL 3 JuwanClarissa carter DO Reymundo [address] [place] [address] [facility] Main [address] [place] [address] Referral ID Status Reason Start Date Expiration Date V isits Requested Visits Authorized [id number] Closed OON/Self Pay Override 07/13/2024 08/03/2025 1 1 Reason Comments Event 14 days Specialty Diagnoses / Procedures Referred By Contac t Referred To Contact CARD [place] Diagnoses follow up Procedures follow up [facility] Main [address] [place] [address] Referral ID Status Reason Start Date Expiration Date Visits Requested Visits Authorized [id number] New Request OON/Self Pay Override 08/11/2024 11/19/2025 5 5 Reason Comments Ankle Injury R ankle injury x1 ho ur Reason Comments Right ankle fracture Specialty Diagnoses / Procedures Referred By Contac t Referred To Contact Orthopedics Diagnoses Right ankle injury, initial encounter Procedures CONSULT PANEL TO ORTHOPAEDICS OFFICE/OUTPATIENT [facility] 60 MINUTES Saida Frank, JULIANNE.STEWARD/STEWARDESS ECONOMY CLASS [address] [place] [address] Phone: tel: fax: Referral ID Status Reason Start Date Expiration Date Visits Requested Visits Authorized [id number] Pending Review PCP Requested Referral 11/04/2024 11/04/2025 1 1 Reason Comments right distal fibula fx Reason Comments Ear Pain Left. Started last n ight Reason Comments Hearing Problem perceives change Pressure In Ear(s) left ear Specialty Diagnoses / Procedures Referred By Contac t Referred To Contact Diagnoses Other specified hearing loss, unspecified ear Procedures HEARING TEST/AUDIOGRAM COMPRE AUDIOMETRY THRESHOLD EVAL SP Reymundo Tomlinson PA-C [address] [place] [address] Phone: tel: [facility] [address] [place] [address] Referral ID Status Reason Start Date Expiration Date V isits Requested Visits Authorized [id number] Closed Auto-Generate d Referral 11/29/2024 08/03/2025 1 1 Reason Comments Hearing Loss Patient is here toda y for hearing loss. Patient noticed some hearing loss however her audio today showed that it is the same as it was.Patient was having pain in her left ear a week ago and used ear drops and flonase which helped. Specialty Diagnoses / Procedures Referred By Coni son Referred To Contact Ent - Otolaryngology / ENT-OTOLARYNGOLOGY Diagnoses Hearing loss hearing loss Procedures OFFICE/OUTPATIENT ESTABLISHED HIGH MDM 40 MIN OFFICE/OUTPATIENT ESTABLISHED MOD MDM 30 MIN OFFICE/OUTPATIENT ESTABLISHED LOW MDM 20 MIN OFFICE/OUTPATIENT ESTABLISHED SF MDM 10 MIN EST HNI PATIENT Reymundo Clayton PA-C [address] [place] [address] Phone: tel: Reymundo Clayton PA-C [address] [place] [address] Phone: tel: Referral ID Status Reason Start Date Expiration Date Visits Re quested Visits Authorized [id number] Closed 11/30/2024 08/03/2025 1 1 Reason Comments Ear Problem Left Ear pain X 5 da ys Reason Comments Follow Up Reason Onset Date Comments Results 01/03/2025 Reason Comments Derm Problem Reason Comments Headache Neck Pain Reason Comments Headache Neck pain FOR RECORDS PERTAINING TO PATIENTS WHO ARE OR HAVE BEEN ENROLLED IN A CHEMICAL DEPENDENCY/SUBSTANCEABUSE PROGRAM, SOME INFORMATION MAY BE OMITTED. This clinical summary was aggregated from multiple sources. Caution should be exercised in using it in the provision of clinical care. This summary normalizes information from multiple sources, and as a consequence, information in this document may materially change the coding, format and clinical context of patient data. In addition, data may be omitted in some cases. CLINICAL DECISIONS SHOULD BE BASED ON THE PRIMARY CLINICAL RECORDS. [employer] provides no warranty or guarantee of the accuracy or completeness of information in this document.
[2025-04-09 08:06] LABS: Hematocrit 42.4 % (37-47); Hemoglobin 13.8 g/dL (12.0-15.0); Immature Granulocytes Count 0.010 X10^3/uL (0.0-0.0); Mean Corp Hgb Conc 32.5 g/dL (32-36); Mean Corpuscular Volume 89.8 fL (81-99); Mean Platelet Vol. 11.3 fl (6.2-12.0); NRBC Flagged by Analyzer 0 % (0-5); Platelet Count 157 K/mm3 (150-450); RBC Distribution Width CV 13.5 % (11.6-14.6); RBC Distribution Width SD 44.3 fl (35.1-43.9); Red Blood Count 4.72 M/mm3 (4.2-5.4); White Blood Count 5.4 K/mm3 (4.4-11.0)
[2025-04-09] MEDS: 0.9% Normal Saline (1000mL) 1,000 ML 999 ML IV (08:09)
--- NOTE | 2025-04-09 08:10 | EX.ED.DYSGE1 ---
HPI History of Present Illness Chief Complaint: Other, Pain/Inj Narrative Narrative: Patient is a 65-year-old female past medical history of heart failure, cardiac arrest secondary to arrhythmogenic right ventricular cardiomyopathy, PTSD, GERD, hyperlipidemia, osteopenia who presents to the emergency department with a chief complaint of left-sided neck pain. 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 She chalked this up to stress. States that she went to her physician on and was prescribed a muscle relaxer and was using an anti-inflammatory and icing this. States that the pain has not gotten any better and she came here to be further evaluated. Patient states that she had no inciting injury to her neck as noted above. Patient is also complaining of right lower extremity swelling which is new for her she states that usually when she wakes up her legs are not swollen. 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 SA node dysfunction Arrhythmogenic right ventricular cardiomyopathy Home Medications ?Medication ?Instructions ?Recorded ?Last Taken ?Type aspirin 81 mg chewable tablet 81 mg PO DAILY@0800 02/07/17 02/07/17 History calcium 600 mg (as 3 ea PO DAILY 02/07/17 02/07/17 History carbonate)-vitamin D3 10 mcg (400 unit) tablet metoprolol succinate 100 mg 12.5 mg PO DAILY 02/07/17 02/07/17 History tablet,extended release 24 hr (Toprol XL) bzrtolbk-xshm-ojzn 8 mg-folic 400 1 ea PO DAILY 02/07/17 02/07/17 History mcg-K 50 mcg-lutein 300 mcg tablet (Centrum Silver Women) vit 1 ea PO DAILY 02/07/17 02/07/17 History N-eljbcvk-ibcoqxdyw-rutin-zkzn744 500 mg-50 mg-25 mg-40 mg tablet (Bioflex) biotin 5 mg capsule 5 mg PO DAILY 01/27/18 Unknown History meloxicam 15 mg tablet 15 mg PO PRN PRN Pain 01/27/18 Unknown History Allergy/AdvReac Type Severity Reaction Status Date / Time bee venom protein (honey Allergy Rash Verified 04/09/25 07:25 bee) (bee sting) Social History Smoking Status: Never smoker ROS ROS ED ROS Narrative Constitutional: Complains of headache denies any dizziness, lightness, fevers, chills Eyes: Denies change in vision double vision blurry vision Cardiovascular: Denies chest pain or palpitations Respiratory: Denies coughing wheezing shortness of breath Abdomen: Denies nausea vomit diarrhea Neurological: Denies numbness, weakness, tingling Musculoskeletal: Complains of neck pain as noted above Skin: Denies any rashes or lesions EXAM Physical Exam Narrative Exam Narrative: General: Patient was lying in bed rest comfortably did appear to be in some discomfort secondary to her neck pain Head: Atraumatic, normocephalic Eyes: PERRL bilaterally, EOMI bilaterally, no conjunctival injection noted Neck: Soft, supple, trachea midline, no tenderness palpation midline of the cervical spine patient has tenderness palpation over the left upper trap region. No concern for meningitis Cardiovascular: Regular rate Musculoskeletal: Patient is able to look left, right, up and down however she states that this is painful for her Extremities: Radial pulses +2/4 in the bilateral extremities, +5/5 strength noted in the bilateral upper and lower extremities Neurological: Patient following commands knew that she was at [facility] year is 2024. NIH of 0 GCS 15 Skin: Warm, dry, intact no rashes or lesions noted no petechia no purpura Const Vital Signs: 04/09/25 07:24 04/09/25 07:52 04/09/25 11:08 Temperature 97.7 F L Temperature Source Oral Pulse Rate 72 60 Respiratory Rate 16 18 Respiratory Pattern Normal Blood Pressure 141/93 H 108/74 Blood Pressure Mean 109 85 Pulse Ox 97 100 Oxygen Delivery Method Room Air Room Air 04/09/25 13:00 Temperature Temperature Source Pulse Rate 58 L Respiratory Rate Respiratory Pattern Blood Pressure 114/78 Blood Pressure Mean 90 Pulse Ox 100 Oxygen Delivery Method Room Air MDM MDM MDM Narrative Medical decision making narrative: Patient is a 65-year-old female who presents to the emergency department chief complaint of left-sided neck pain as well as a headache and right lower extremity swelling. On the differential diagnose includes but not limited to intracranial hemorrhage, aneurysm, carotid artery dissection, migraine headache, musculoskeletal strain, muscle spasm. Once workup is obtained reviewed she will be reevaluated. Patient be given IV fluids morphine and Reglan. Patient CBC reviewed which showed no evidence leukocytosis white blood count normal at 5.4, he was 13.8, platelet count 157. Patient sodium was 143, potassium normal 4.1, creatinine normal 0.81. Patient AST and ALT are 26 [address] head and brain without contrast was reviewed which showed no acute findings. 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 I spoke with neurosurgeon Dr. Vicente who states that the patient will be accepted up there however transfer states that they will be waiting a bed. Dr. Vicente is recommending her continuing her aspirin and no further medications until MRI and further evaluation. She states that she does not believe that this is amendable to stenting at this point in time. She states that she does not want heparin currently until MRI is performed and further evaluation done. She also has recommended holding off on Plavix. Patient was notified that she was accepted to [facility] however we discussed that there is a wait time for a bed therefore she will have to wait 6 hours from acceptance and then if no bed available she will be admitted upstairs with pending transfer Lab Data Labs: Laboratory Results - last 24 hr 04/09/25 07:51 WBC 5.4 RBC 4.72 Hgb 13.8 Hct 42.4 MCV 89.8 MCH 29.2 MCHC 32.5 RDW Std Deviation 44.3 H RDW Coeff of Checo 13.5 Plt Count 157 MPV 11.3 Immature Gran % (Auto) 0.200 Neut % (Auto) 59.3 Lymph % (Auto) 27.9 Elk % (Auto) 10.9 H Eos % (Auto) 1.3 Baso % (Auto) 0.4 Absolute Neuts (auto) 3.2 Absolute Lymphs (auto) 1.51 Nucleated RBC % 0 Sodium 142 Potassium 4.1 Chloride 105 Carbon Dioxide 25.7 Anion Gap 11 BUN 21 H Creatinine 0.81 Estim Creat Clear Calc 67.34 Est GFR (MDRD) Non-Af 81 BUN/Creatinine Ratio 26.0 H Glucose 95 Calcium 9.5 Total Bilirubin 0.35 AST 26 ALT 21 Alkaline Phosphatase 72 Total Protein 6.9 Albumin 4.0 Globulin 2.9 Albumin/Globulin Ratio 1.4 Radiography Diagnostic Testing: Clinical Impression(s) from Imaging Studies Brain CT 04/09/25 07:40 IMPRESSION: Negative CT of the brain. Reading Location: [facility] Head/Neck CTA 04/09/25 07:40 IMPRESSION: Negative CTA of the head. Abnormal appearance to the proximal left internal carotid artery, likely dissection. Right carotid system negative. Findings discussed with referring clinician at the time of the exam. Reading Location: [facility] Discharge Plan Triage Chief Complaint: Other, Pain/Inj ED Provider: Juan Harris Dx/Rx/DC Orders Clinical Impression: Headache, Neck pain, Dissection of left carotid artery Prescriptions: No Action metoprolol succinate [Toprol XL] 100 MG tablet extended release 24 hr 12.5 mg PO DAILY aspirin 81 MG tablet,chewable 81 mg PO DAILY@0800 calcium carbonate-vitamin D3 1 EACH tablet 3 ea PO DAILY iqyigewq-cqm-pqsn-FA-vit K-lut [Centrum Silver Women] 1 EACH tablet 1 ea PO DAILY vit W-njscuzn-wbxq-rutin-hb196 [Bioflex] 1 EACH tablet 1 ea PO DAILY biotin 5 MG capsule 5 mg PO DAILY meloxicam 15 MG tablet 15 mg PO PRN PRN (Reason: Pain) Primary Care Provider: Alton Guerra Referrals: Alton Guerra MD [Primary Care Provider] - Print Language: Greek Disposition Disposition: DC/Tx to Another Type of HCF
--- NOTE | 2025-04-09 08:12 | EKG12_ITS ---
Test Reason : NECK/SHOULDER PAIN Blood Pressure : */* mmHG Vent. Rate : 60 BPM Atrial Rate : 60 BPM P-R Int : 200 ms QRS Dur : 60 ms QT Int : 434 ms P-R-T Axes : 114 8 8 degrees QTcB Int : 434 ms Atrial-paced rhythm Low voltage QRS Abnormal ECG Confirmed by Aman Whiteside ([id number]), associate entertainment editor CAMMIE WATKINS ([id number]) on 04/12/2025 5:45:52 AM Referred By: Confirmed By: Aman Whiteside
[2025-04-09 08:37] LABS: AST(SGOT) 26 U/L (<=31); Alanine Aminotransfer ALT/SGPT 21 U/L (<=34); Albumin, Serum 4.0 g/dL (3.4-4.8); Alkaline Phosphatase 72 U/L (35-104); Anion Gap 11 (5-15); BUN 21 mg/dL (4-19); BUN/Creat Ratio 26.0 RATIO (10-20); Calcium,Total 9.5 mg/dL (7.6-11.0); Carbon Dioxide 25.7 mmol/L (21.0-32.0); Chloride 105 mmol/L (98-108); Estimated Creatinine Clearance 67.34 ml/min (50-250); Globulin 2.9 g/dL (2.2-4.2); Glucose 95 mg/dL (70-99); Potassium 4.1 mmol/L (3.3-5.1)
--- NOTE | 2025-04-09 09:53 | CM.ED ---
Social Work Date of referral: 04/09/25 Reason for referral: No advance care directives (ACD's) on file Referred by: Social Work Identification Patient provided consent to social work visit. Seed Cleaning Manager requested patient bring in a copy of ACD's which patient agreed to do. Paola Tello, DRIVER UTILITY WORKER, PRODUCTION MACHINE OPERATOR
[2025-04-09 11:08] VITALS: BP 108/74; PULSE 60; RESP 18; O2SAT 100
[2025-04-09 13:00] VITALS: BP 114/78; PULSE 58; O2SAT 100
[2025-04-09 15:00] VITALS: BP 125/82; PULSE 61; O2SAT 97
[2025-04-09 15:45] VITALS: BP 106/79; PULSE 53; RESP 16; TEMP 36.5; O2SAT 96
--- NOTE | 2025-04-09 15:49 | ED.RN ---
Report called to [facility].
[2025-04-09 17:00] VITALS: BP 104/77; PULSE 57; O2SAT 99
== END 2025-04-09 18:30 | disposition other institution (70) ==
PROVIDERS: Emergency Provider Emergency Medicine; PCP Family Medicine; Visit Provider Emergency Medicine
DX: I77.71 Dissection of carotid artery (principal); I50.32 Chronic diastolic (congestive) heart failure; Z86.74 Personal history of sudden cardiac arrest; M79.89 Other specified soft tissue disorders; F43.10 Post-traumatic stress disorder, unspecified; K21.9 Gastro-esophageal reflux disease without esophagitis; E78.5 Hyperlipidemia, unspecified; M85.80 Other specified disorders of bone density and structure, unspecified site; Z79.82 Long term (current) use of aspirin; Z79.899 Other long term (current) drug therapy
CPT/HCPCS: 70450; 70496; 70498; 80053; 85025; 93005; 93971; 96361; 96374; 96375; 99284; Q9967; A4216